=== PATIENT | male | born 1965 | race Caucasian/White ===

== ENCOUNTER → 2020-06-02 08:49 | Outpatient (BNVA) | payer MEDICAID, SELFPAY | PROVIDERS: PCP Internal Medicine; Visit Provider Surgery Vascular Surgery | DX: M79.604 Pain in right leg (principal); M79.605 Pain in left leg | CPT/HCPCS: 99213 ==

== ENCOUNTER 2020-06-03 08:11 | Day surgery (SDC) | payer MEDICAID, SELFPAY ==
[2020-05-27 13:55] VITALS: BMI 38.7
--- NOTE | 2020-06-01 08:13 | P.CONAN_ITS ---
Documented by User: Natividad Acharya 06/02/20 13:19 HPI - Anesthesia Eval Consult details Narrative: 55yo M for EGD and Colonoscopy Chronic type B descending aortic dissection, no contraindication per vascular, Dr. Marino Pending vascular surgical repair, Cardiac cleared at intermediate risk [facility] Past Medical History Medical History Anemia Anxiety Ascending aortic dissection Back pain Constipation Esophagitis Fatty liver GERD (gastroesophageal reflux disease) Hx of lipoma Hypercholesteremia Hypertension Leg edema VALERY (obstructive sleep apnea) Peptic ulcer disease Pulmonary hypertension Sacroiliac joint pain Sacroiliitis SOB (shortness of breath) Thoracic aneurysm without mention of rupture Family History Family History Father Depression Suicide Mother Diabetes Dementia Heart problem Sister Dementia, Onset Age: 73 Sister No problems noted. Brother No problems noted. Family/Other No problems noted. Surgical History Surgical History History of arthroscopy of both knees History of carpal tunnel release of both wrists History of esophagogastroduodenoscopy (EGD) Hx of cholecystectomy Hx of colonoscopy Social History Social History Smoking Status: Former smoker Years Smoked: 30 Smoked in Last 30 Days: No Smoking Quit Date: 2017 Use of substances other than those prescribed or required for medical reasons: No Advance Directives: No Advance Directives Information Provided: Yes Advance Directives on File: No Recently lost weight without trying: No Meds Allergies Allergy/AdvReac Type Severity Reaction Status Date / Time baclofen [BACLOFEN] Allergy Intermediate RASH Verified 06/02/20 09:04 Home Medications Medication Instructions Recorded Confirmed Type amlodipine 10 mg PO DAILY 05/27/20 05/27/20 History atorvastatin 40 mg PO BEDTIME 05/27/20 05/27/20 History carvedilol [Coreg] 25 mg PO BID 05/27/20 05/27/20 History isosorbide dinitrate 20 mg PO QID 05/27/20 05/27/20 History lisinopril 40 mg PO DAILY 05/27/20 05/27/20 History pantoprazole 40 mg PO DAILY 05/27/20 05/27/20 History Exam Exam Date and Time: June 01, 2020 0813 Height,Weight and Vital Signs: Height 5 ft 10 in Weight 122.47 kg Pertinent Lab Results Pertinent Lab Results: EKG 09/19/2019 = NSR @68 (Per [facility] note, new RBBB 03/2020) ECHO 03/2020 = LVEF 60-65%, Mild AR, Mild Pulm Htn, Mod dilatation of asc aorta @ 4.61cm CTA Chest 03/2020 = Type B dissection with measurements grossly unchanged from prev, Asc aorta and aortic arch not involved by dissection and are stable. 03/2020: Lytes/Bun/Creat = WNL, AST 38(H), ALT 44(H) 03/2020: WBC 8.0, HGB 13.1(L), HCT 39.6(L), PLT 215 MIBI 2019 Neg Documented by User: Cortney Carter 06/03/20 08:47 [facility] Past Medical History Medical History Anemia Anxiety Ascending aortic dissection Back pain Constipation Esophagitis Fatty liver GERD (gastroesophageal reflux disease) Hx of lipoma Hypercholesteremia Hypertension Leg edema VALERY (obstructive sleep apnea) Peptic ulcer disease Pulmonary hypertension Sacroiliac joint pain Sacroiliitis SOB (shortness of breath) Thoracic aneurysm without mention of rupture Family History Family History Father Depression Suicide Mother Diabetes Dementia Heart problem Sister Dementia, Onset Age: 73 Sister No problems noted. Brother No problems noted. Family/Other No problems noted. Surgical History Surgical History History of arthroscopy of both knees History of carpal tunnel release of both wrists History of esophagogastroduodenoscopy (EGD) Hx of cholecystectomy Hx of colonoscopy Social History Social History Smoking Status: Former smoker Years Smoked: 30 Smoked in Last 30 Days: No Smoking Quit Date: 2017 Use of substances other than those prescribed or required for medical reasons: No Advance Directives: No Advance Directives Information Provided: Yes Advance Directives on File: No Recently lost weight without trying: No Meds Allergies Allergy/AdvReac Type Severity Reaction Status Date / Time baclofen [BACLOFEN] Allergy Intermediate RASH Verified 06/02/20 09:04 Home Medications Medication Instructions Recorded Confirmed Type amlodipine 10 mg PO DAILY 05/27/20 05/27/20 History atorvastatin 40 mg PO BEDTIME 05/27/20 05/27/20 History carvedilol [Coreg] 25 mg PO BID 05/27/20 05/27/20 History isosorbide dinitrate 20 mg PO QID 05/27/20 05/27/20 History lisinopril 40 mg PO DAILY 05/27/20 05/27/20 History pantoprazole 40 mg PO DAILY 05/27/20 05/27/20 History Exam Airway Mallampati Class: II TM Dist: >3cm Neck ROM: Full Heart: RRR Lungs: CTA BL Assessment and Plan Final Anesthetic Review NPO: Yes ASA Class: III Final Preanesthetic Review: No Changes in Pt Med Stat, Meds & Allergies Reviewed, Consent Obtained/Reviewed and Med/Surg/Anes Hx Reviewed Patient Risk: Intermediate Procedure Risk: Low Anesthetic Plan Anesthetic Plan: MAC: Disposition: Standard PACU
[2020-06-03] VITALS (8 sets, daily range): BP systolic 115–137; BP diastolic 54–81; PULSE 58–74; RESP 16–20; TEMP 36.2–36.5; O2SAT 91–95
[2020-06-03] MEDS: Lactated Ringers 1,000 ML 100 ML IVCONT (09:10)
--- NOTE | 2020-06-03 09:22 | MHC.SHP ---
Pre-Procedural Eval Section B Chief Complaint: constipation Details of Present Illness: hx orf erosive esophagitis, epigastric pain, constipation albeit better now Relevant Family History (Specify if Yes): No Relevant Social History: None Present Medications: see Short Stay Collaborative assessment Medical History: Significant History (esophagitis, aortic dissection, HLP, HTN) Allergies: Allergies Allergy/AdvReac Type Severity Reaction Status Date / Time baclofen [BACLOFEN] Allergy Intermediate RASH Verified 06/02/20 09:04 Review of Systems Sugical H&P ROS: Negative: Constitution, Cardiovascular, Respiratory, Neurological, Psychiatric, Hem-Onc, Allergic/Immunologic, Gastrointestinal, Genitourinary, Musculoskeletal, Integumentary, Endocrine and Eyes/Ears/Nose/Throat Exam Surgical H&P Exam: Normal: HEENT, Normal: Heart, Normal: Lungs, Normal: Extremities, Normal: Abdomen, Normal: Skin and Normal: Neurological Plan Diagnosis/Plan: Unchanged Patient has been examined and remains a candidate for the planned procedure
--- NOTE | 2020-06-03 09:53 | PM.OP ---
Brief Operative Note Date of procedure: 06/03/20 Pre-op diagnosis: hx of erosive esophagitis, epigastric pain, constipation Post-op diagnosis: same Procedure: Operative Information Procedure Description: EGD, Colonoscopy FLEXIBLE TRANSORAL UPPER GASTROINTESTINAL ENDOSCOPY AND COLONOSCOPY PROCEDURE NOTE UPPER ENDOSCOPY Consent: Indications for the procedure and potential complications of bleeding, perforation, reaction to medications and missed diagnosis were discussed with the patient and informed consent was obtained. Instrument: Olympus GIF H 190 J mid size upper endoscope Monitoring: Vital signs and clinical assessment, continuous EKG monitoring, Pulse oximetry, Carbon Dioxide monitoring and blood pressure monitoring were done throughout the procedure. Procedure: The patient was placed in the left lateral decubitis position and pre-procedure medications were administered and a bite block was placed. The endoscope was inserted into the mouth and advanced under direct vision to the third part of duodenum. A careful inspection was made as the upper endoscope was withdrawn including a retroflexed examination of the proximal stomach; Findings and interventions are described below. Findings: Larynx:normal Esophagus: GE junction at 45 cm, diaphragm hiatus at 45 cm, mild esophagitis at GEJ, otherwise normal esophageal mucosa. Stomach: Normal mucosa. Biopsies were obtained. Grade 2 flap valve on retroflexed examination of the cardia. Duodenum: Mild bulbar duodenitis, bx taken Intervention: Biopsies as noted above COLONOSCOPY Instrument: Olympus variable stiffness pediatric scope 190L Colonoscopy Monitoring: Vital signs and clinical assessment, continuous EKG monitoring, Pulse oximetry, Carbon Dioxide monitoring and blood pressure monitoring were done throughout the procedure. Colon withdrawal time was 11 minutes. Procedure: The patient was placed in the left lateral decubitis position and pre-procedure medications were administered. After a digital rectal examination of the ano-rectum, the video colonoscope was inserted into the rectum and advanced through the colon to the cecum/TI. The colonoscope was slowly withdrawn in a retrograde panoramic fashion and the colon mucosa was carefully examined including a retroflexed view of the rectum. Findings and interventions are described below. Procedure Difficulty: Findings: Terminal Ileum-normal Cecum:normal Ascending Colon: normal Transverse Colon -normal Descending Colon:normal Sigmoid Colon: normal Rectum: Retroflexion with moderate sized internal hemorrhoids, grade I Anorectum - normal Colon preparation: [place] Bowel Preparation Scale Right colon; 3 Transverse colon: 2 Left colon; 3 (0 = Unprepared colon segment with mucosa not seen due to solid stool that cannot be cleared. 1 = Portion of mucosa of the colon segment seen, but other areas of the colon segment not well seen due to staining, residual stool and/or opaque liquid. 2 = Minor amount of residual staining, small fragments of stool and/or opaque liquid, but mucosa of colon segment seen well. 3 = Entire mucosa of colon segment seen well with no residual staining, small fragments of stool or opaque liquid) Impression and Post Procedure Diagnosis: Endoscopy Findings: mild esophagitis duodenitis Colonoscopy Findings: internal hemorrhoids Plan: Await Pathology results Repeat Colonoscopy in 10 years or earlier if clinically indicated High fiber diet leaflet avoid straining at stool, epsom salts and sitz bath prn, anusol supps or cream Above findings were reviewed with the patient and relevant handouts were provided if indicated. Surgeon: Beto Lopez MD Anesthesia: MAC Condition: stable Disposition: PACU
--- NOTE | 2020-06-03 12:03 | SUR.PHASEI ---
1200 PT AWAKE ALERT BARTOLOME PO NO ISSUES,ASST OOB TO JAJA LEMOS,TOTAL IV IN +950ML LR.IV DC'D TIP INTACT PRESSURE AND DRESSING TO SITE,DRESSED SELF AT BS CALL LYNCH IN REACH
--- NOTE | 2020-06-03 12:16 | HO.POSTANES ---
Post Anesthesia Evaluation Post Anesthesia Evaluation Vital Signs: Vital Signs Temp Pulse Resp BP Pulse Ox 06/03/20 11:48 73 18 137/78 95 06/03/20 11:33 74 16 123/78 92 06/03/20 11:18 62 16 128/78 92 06/03/20 11:03 58 20 132/78 92 06/03/20 10:48 59 16 130/78 92 06/03/20 10:33 58 18 130/81 91 L 06/03/20 10:18 97.7 F 70 19 115/70 93 06/03/20 08:54 97.1 F 68 16 124/54 L 95 Anesthesia: Monitored Mental Status: Awake Pain Control: Satisfactory Nausea/Vomiting: None Hydration: Adequate Anesthesia-Related Issues: No Anes. Related Issues
== END 2020-06-03 12:22 | disposition home or self-care (01) ==
PROVIDERS: PCP Internal Medicine; Visit Provider Internal Medicine Gastroenterology
PROC: (CPT 45378; principal; 2020-06-03 09:20)
DX: K59.00 Constipation, unspecified (principal); K64.0 First degree hemorrhoids; R10.13 Epigastric pain; K44.9 Diaphragmatic hernia without obstruction or gangrene; K21.00 Gastro-esophageal reflux disease with esophagitis, without bleeding; K29.60 Other gastritis without bleeding; K29.80 Duodenitis without bleeding; K76.0 Fatty (change of) liver, not elsewhere classified; I10 Essential (primary) hypertension; I71.00 Dissection of unspecified site of aorta; G47.33 Obstructive sleep apnea (adult) (pediatric); D64.9 Anemia, unspecified; Z79.899 Other long term (current) drug therapy; Z90.49 Acquired absence of other specified parts of digestive tract; Z87.891 Personal history of nicotine dependence; Z88.8 Allergy status to other drugs, medicaments and biological substances
CPT/HCPCS: 45378; 43239; 88305; 88342

== ENCOUNTER → 2020-07-21 12:42 | Outpatient (BNVA) | payer MEDICAID, SELFPAY | PROVIDERS: PCP Internal Medicine; Referring Provider Internal Medicine; Visit Provider Internal Medicine Cardiovascular Disease | DX: K22.10 Ulcer of esophagus without bleeding (principal); K59.00 Constipation, unspecified; Z86.19 Personal history of other infectious and parasitic diseases; I71.4 Abdominal aortic aneurysm, without rupture; I71.01 Dissection of thoracic aorta | CPT/HCPCS: 93005; 99212 ==

== ENCOUNTER → 2020-09-01 14:44 | Outpatient (BNVA) | payer MEDICAID, SELFPAY | PROVIDERS: PCP Internal Medicine; Visit Provider Internal Medicine Cardiovascular Disease | DX: I71.01 Dissection of thoracic aorta (principal); I71.2 Thoracic aortic aneurysm, without rupture; I10 Essential (primary) hypertension; R07.89 Other chest pain | CPT/HCPCS: 93005; 99212 ==

== ENCOUNTER → 2020-11-05 13:30 | Outpatient (BNVA) | payer MEDICAID, SELFPAY | PROVIDERS: PCP Internal Medicine; Visit Provider Internal Medicine Cardiovascular Disease | DX: I71.2 Thoracic aortic aneurysm, without rupture (principal); I71.01 Dissection of thoracic aorta; I10 Essential (primary) hypertension; Z79.899 Other long term (current) drug therapy; Z87.891 Personal history of nicotine dependence | CPT/HCPCS: 99212 ==

== ENCOUNTER → 2021-01-08 08:18 | Outpatient (BNVA) | payer MEDICAID, SELFPAY | PROVIDERS: PCP Internal Medicine; Visit Provider Internal Medicine Gastroenterology | DX: K59.00 Constipation, unspecified (principal); Z79.891 Long term (current) use of opiate analgesic | CPT/HCPCS: 99212 ==

== ENCOUNTER → 2021-01-28 12:53 | Outpatient (BNVA) | payer MEDICAID, SELFPAY | PROVIDERS: PCP Internal Medicine; Referring Provider Internal Medicine; Visit Provider Nurse Practitioner Family ==

== ENCOUNTER → 2021-02-04 13:42 | Outpatient (REF) | payer MEDICAID, SELFPAY ==
--- NOTE | 2021-02-04 13:45 | CA_ITS ---
Transthoracic Echocardiogram Patient (Last, First, Middle): Silvestre Villalobos A Gender: Male Date of : 1965 Age: 55 Procedure Date: 02/04/2021 Procedure Type: Transthoracic Echocardiogram Location: OP Height: 177.8 cm Weight: 131.54 kg BSA: 2.44 m2 Heart Rate: bpm BP: 160 / 70 mmHg Tear Down Man: RADHA Referring MD: Isabella Dow VEHICLE INSURANCE AGENTRebecca Symptoms: R06.02 - Shortness of breath Conclusions: - 1. Normal LV systolic function with impaired relaxation filling pattern 2. Mildly increased RV size 3. Moderately dilated ascending aorta at 4.7 cm 4. Trivial to mild aortic regurgitation 5. Normal RV systolic pressure 6. No pericardial effusion Findings Left Ventricle Normal left ventricular size, thickness, and systolic function. The visually estimated ejection fraction is between 65-70%. There is no evidence of regional wall motion abnormalities. Spectral Doppler is indicative of an impaired relaxation filling pattern. E/E prime ratio is <8, consistent with normal filling pressures. Evidence suggests grade I (mild) diastolic dysfunction. Right Ventricle Mildly increased right ventricular cavity size. There is low normal right ventricular systolic function. Atria The left atrium is normal in size. Interatrial shunt cannot be excluded. The right atrium is likely dilated. Aortic Valve The aortic valve was not well visualized. There is mild aortic valve stenosis. There is trace (trivial) aortic valve regurgitation. Mitral Valve Likely normal mitral valve structure and function. There is trace mitral valve regurgitation. There is no mitral valve stenosis. Pulmonic Valve The pulmonic valve was not well visualized. Tricuspid Valve Likely normal tricuspid valve structure and function. There is trace tricuspid valve regurgitation. The right ventricular systolic pressure is normal. The right ventricular systolic pressure is 26 mmHg. Normal right atrial pressure. There is no evidence of pulmonary hypertension. Great Vessels The pulmonary artery was not well visualized. There is moderate dilatation of the ascending aorta measuring 4.70 cm. Venous The inferior vena cava is normal in size and collapses greater than 50% with inspiration. Pericardium/Pleural There is no evidence of pericardial effusion. Prior Study Comparison Changes noted compared to prior study dated: 04/01/2020. RV systolic pressure is within normal limits on this study Measurements 2D Linear Measurements IVSd: 1.04 0.6-0.9/0.6-1.0 cm LVIDd: 5.43 3.9-5.3/4.2-5.9 cm LVIDd Index: 2.23 2.4-3.2/2.2-3.1 cm/m2 LVIDs: 4.15 2.0-3.6 cm LVPWd: 1.00 0.7-1.1 cm Ao Root: 3.10 2.1-3.5 cm LA Diam: 3.70 2.7-3.8/3.0-4.0 cm LAIDs Index: 1.52 1.5-2.3 cm/m2 LV Mass: 311.81 67-162/88-224 g LV Mass Index: 127.79 43-95/49-115 g/m2 LVOT Diam: 2.20 3.0+(-)1.3 cm 2D Systolic Function EF 4C: 71.60 >55% EF 2C: 72.40 >55% EF BiP: 72.40 >55% Mitral Valve MV Pk E: 0.82 MV PK A: 1.03 MV Decel Time: 204.00 E/A: 0.80 E'Lateral: 8.70 E'Medial: 8.27 E/E' Med: 9.90 E/E' Lat: 9.40 PHT: 60.00 MVA PHT: 3.67 Decel [place]: 4.01 Aortic Valve AoV Pk Nicko: 1.70 AoV Pk Grad: 12.00 LVOT LVOT Pk Nicko: 1.11 LVOT Mn Nicko: 0.75 LVOT VTI: 0.23 LVOT Pk Grad: 5.00 LVOT Mn Grad: 3.00 LVOT Diam: 2.20 LVOT Area: 3.80 Diastolic Function MV Pk E: 0.82 MV Pk A: 1.03 E/A: 0.80 E'Medial: 8.27 E/E' Med: 9.90 E' Laterial: 8.70 E/E' Lat: 9.40 Tricuspid Valve TR Pk Nicko: 2.42 TR Pk Grad: 23.00 RA Press: 3.00 RVSP: 26.00 Great Vessels Aorta Ao Root-2D: 3.10 2.0-3.7 cm Ao Asc: 4.70 2.1-3.4 cm Updated in Other Vendor System with Status of Final Tyree Weber MD electronically signed on 02/05/2021 4:57:29 PM with status of Final
== END ==
LOC: HO.CARD 13:42
PROVIDERS: Visit Provider Nurse Practitioner Family
DX: R06.02 Shortness of breath (principal); R07.89 Other chest pain; I71.2 Thoracic aortic aneurysm, without rupture; I71.01 Dissection of thoracic aorta; I10 Essential (primary) hypertension; E78.5 Hyperlipidemia, unspecified; Z79.899 Other long term (current) drug therapy
CPT/HCPCS: 93005; 93306; 99212; Q9957

== ENCOUNTER → 2021-02-15 08:55 | Outpatient (REF) | payer MEDICAID, SELFPAY ==
--- NOTE | ~2021-02-15 | NM_ITS ---
Myocardial perfusion study Indication: Shortness of breath and chest discomfort to evaluate for myocardial ischemia Technique: The patient was brought in for a Lexiscan perfusion study on 02/15/2021. Patient performed low-level exercise and was injected 0.4 mg of Lexiscan intravenously. Within a minute of injection, 45 mCi of sestamibi was given intravenously. Images were obtained using the SPECT gamma camera interlaced with the gating device. Images were obtained in supine position. Resting perfusion study was performed on 02/16/2021. Patient was administered 45 mCi of sestamibi intravenously at rest. Images were then obtained in supine position. Images obtained with and without CT attenuation. Total DLP 143 mGy-cm. Images were processed with the software and compared side to side in short axis, horizontal long axis and vertical long axis views. Findings: The stress perfusion study showed nonattenuated images show normal uptake of radiotracer in all segments of LV myocardium. Attenuation corrected images show mildly reduced uptake in the apex of the LV myocardium. The gated study shows normal LV systolic function with calculated LVEF of 65%. LV cavity is normal in size. The gated study shows normal systolic wall thickening and contraction of segments. Resting study shows nonattenuated images show normal uptake of radiotracer in all segments of LV myocardium. Gating at rest reveals normal systolic wall motion with visually estimated ejection fraction at greater than 60%. The findings are consistent with normal myocardial perfusion. NM/NM gary perf SPECT rest & str Impression: 1. Myocardial perfusion imaging study shows normal myocardial perfusion 2. Gated LVEF is 65% 3. Transient ischemic dilatation not present EKG is nondiagnostic for ischemia
--- NOTE | 2021-02-15 08:59 | CA_ITS ---
Acquisition Time: 2021-02-15 08:58:35 Total Exercise Time: 00:02:00 Test Indications: CP, SOB Medications: SEE CHART Protocol: LEXISCAN Max HR: 096 BPM 58% of Pred: 165 BPM Max BP: 124/074 mmHG Max Work Load: 1.0 METS Pharmacological stress test with Lexiscan injection, while sitting and kicking his legs, without anginal symptoms, without arrythmia, with normotensive response to injection, with nondiagnostic EKG for ischemia. Nuclear images pending. Test reviewed with Dr Ma. Referred By: Isabella Dow Overread By: ISABELLA DOW
== END ==
LOC: HO.CARD 08:55
PROVIDERS: Visit Provider Nurse Practitioner Family
DX: R07.89 Other chest pain (principal); R06.02 Shortness of breath; I71.2 Thoracic aortic aneurysm, without rupture
CPT/HCPCS: 78452; 93017; A9500; J0280; J2785

== ENCOUNTER → 2021-02-25 13:56 | Outpatient (BNVA) | payer MEDICAID, SELFPAY | PROVIDERS: PCP Internal Medicine; Referring Provider Internal Medicine; Visit Provider Internal Medicine Cardiovascular Disease | DX: R06.02 Shortness of breath (principal); I71.2 Thoracic aortic aneurysm, without rupture; I71.01 Dissection of thoracic aorta | CPT/HCPCS: 99212 ==

== ENCOUNTER → 2021-04-15 10:23 | Outpatient (BNVA) | payer MEDICAID, SELFPAY | PROVIDERS: PCP Internal Medicine; Visit Provider Anesthesiology | DX: M46.1 Sacroiliitis, not elsewhere classified (principal); M53.3 Sacrococcygeal disorders, not elsewhere classified; I73.9 Peripheral vascular disease, unspecified; E66.01 Morbid (severe) obesity due to excess calories; Z68.41 Body mass index [BMI] 40.0-44.9, adult | CPT/HCPCS: 99212 ==

== ENCOUNTER 2021-05-22 06:00 | Emergency (ER) | payer MEDICAID, SELFPAY ==
--- NOTE | 2021-05-22 | ECG_ITS ---
Test Reason : CHEST PAIN Blood Pressure : / mmHG Vent. Rate : 062 BPM Atrial Rate : 062 BPM P-R Int : 200 ms QRS Dur : 088 ms QT Int : 426 ms P-R-T Axes : 023 007 018 degrees QTc Int : 432 ms Normal sinus rhythm Normal ECG When compared with ECG of 16-APR-2020 12:35, No significant change was found Referred By: Generic ED Physician Electronically Signed By:DAYRON RIVERO
--- NOTE | ~2021-05-22 | XR_ITS ---
EXAMINATION: XR CHEST CLINICAL INFORMATION: Chest pain COMPARISON: 04/16/2020 TECHNIQUE: Frontal view of the chest was obtained. FINDINGS: Lung volumes are symmetric. No focal consolidation is seen. No evidence of pneumothorax, pleural effusion, or pulmonary edema. Cardiac size is within normal limits. Thoracic aortic stent graft is noted. No acute osseous findings are seen. XR/XR chest 1V IMPRESSION: No acute cardiopulmonary findings.
[2021-05-22 06:16] VITALS: BP 140/79; PULSE 64; RESP 20; TEMP 36.1; O2SAT 97; BMI 39.4
[2021-05-22 06:41] VITALS: BP 140/73; PULSE 65; RESP 16; O2SAT 97
[2021-05-22 06:43] LABS: MANUAL DIFF FLAG NO
[2021-05-22 06:46] LABS: Basophils Absolute Auto 0.1 X10*3/uL (0.0-0.2); Basophils Percent Auto 0.5 % (0-2); Eosinophils Absolute Auto 0.3 X10*3/uL (0.0-0.4); Eosinophils Percent Auto 2.7 % (0-4); Hematocrit 38.4 % (42-52); Hemoglobin 12.9 g/dl (14.0-18.0); Imm Gran Abs Auto 0.03 X10*3/uL (0.00-0.03); Imm Gran Pct Auto 0.3 % (0.0-0.4); Lymphocytes Absolute Auto 3.3 X10*3/uL (1.2-4.9); Lymphocytes Percent Auto 33.2 % (20-40); Mean Corpuscular HGB Conc 33.6 g/dl (31.0-36.0); Mean Corpuscular Hemoglobin 27.8 pg (27.0-33.0); Mean Corpuscular Volume 82.8 fL (80-98); Mean Platelet Volume 8.4 fL (9.4-12.4); Monocytes Absolute Auto 0.8 X10*3/uL (0.1-1.2); Monocytes Percent Auto 7.7 % (2-11); Neutrophils Absolute Auto 5.6 X10*3/uL (2.0-8.3); Neutrophils Percent Auto 55.6 % (45-73); Platelet Count 228 X10*3/uL (160-400); Red Blood Count 4.64 X10*6/uL (4.60-5.80); Red Cell Distribution Width 14.4 % (11.0-16.0)
[2021-05-22 06:58] LABS: Anion Gap 12 (12-20); Blood Urea Nitrogen 14 mg/dL (9-16); Calcium 9.4 mg/dL (8.4-10.2); Carbon Dioxide 23 mmol/L (22-29); Chloride 108 mmol/L (96-108); Creatinine Clr Calc Pharmacy 131.7; Estimated Glomerular Filt Rate > 60; Glucose Random 113 mg/dL (60-115); Potassium 3.8 mmol/L (3.3-5.1); Sodium 139 mmol/L (135-145)
--- NOTE | 2021-05-22 08:09 | ED.CHESTPAIN ---
HPI - Chest Pain General Chief Complaint: Chest Pain Stated Complaint: Chest pain Time Seen by Provider: 05/22/21 08:09 History of Present Illness HPI narrative: Patient 56-year-old male presents today with having pain to his chest that wraps around his whole body. Patient has a history of aneurysm. Just spent 4 days at [facility]. Was told that he needs outpatient surgery for his abdominal aortic aneurysm/dissection. Patient was discharged from [facility] now has pain persistent to his chest. Once additional pain medication. There is no fever no chills. There is no abdominal pain. There is no dizziness. There is no diaphoresis today. There is no nausea vomiting. There is no leg weakness. There is no abdominal pain. Patient claims this pain is exactly the same as when he was discharged from [facility]. Patient claims that the Tylenol so it working and he wants additional medication. Related Data Home Medications Medication Instructions Recorded Confirmed amlodipine 10 mg tablet 10 mg PO DAILY 05/27/20 02/25/21 atorvastatin 40 mg tablet 40 mg PO BEDTIME 05/27/20 02/25/21 carvedilol 25 mg tablet (Coreg) 25 mg PO BID 05/27/20 02/25/21 lisinopril 40 mg tablet 40 mg PO DAILY 05/27/20 02/25/21 pantoprazole 40 mg tablet,delayed 40 mg PO DAILY 05/27/20 02/25/21 release albuterol sulfate 4 mg tablet 4 mg PO TID 01/08/21 02/25/21 oxycodone 5 mg capsule 5 mg PO Q8H PRN cap 01/08/21 02/25/21 Previous Rx's Medication Instructions Recorded metronidazole 500 mg tablet 500 mg PO BID 7 Days #14 tab 07/07/20 naloxegol 12.5 mg tablet (Movantik) 12.5 mg PO QAM #30 tab 01/08/21 cyclobenzaprine 10 mg tablet 10 mg PO TID PRN #14 tab 05/22/21 Allergies Allergy/AdvReac Type Severity Reaction Status Date / Time baclofen [BACLOFEN] Allergy Intermediate RASH Verified 04/15/21 10:47 Review of Systems Review of Systems: No fever no chills no cough no congestion or upper respiratory symptoms. No diaphoresis. Yes all other systems are reviewed and are negative PMFSH Past Medical History Attestation statement: The following information was validated with the patient. Medical History Anemia Anxiety Ascending aortic aneurysm Back pain Constipation Descending thoracic aortic dissection Esophagitis Fatty liver GERD (gastroesophageal reflux disease) HTN (hypertension) Hx of lipoma Hypercholesteremia Leg edema Morbid obesity VALERY (obstructive sleep apnea) Peptic ulcer disease Peripheral vascular disease Pulmonary hypertension Sacroiliac joint dysfunction of right side Sacroiliac joint pain Sacroiliitis Sacroiliitis SOB (shortness of breath) Thoracic aneurysm without mention of rupture Surgical History History of arthroscopy of both knees History of carpal tunnel release of both wrists History of esophagogastroduodenoscopy (EGD) Hx of cholecystectomy Hx of colonoscopy Family History Family History Father Depression Suicide Mother Diabetes Dementia Heart problem Sister Dementia, Onset Age: 73 Sister No problems noted. Brother No problems noted. Family/Other No problems noted. Social History Social History Alcohol intake: current Alcohol intake frequency: does not drink Years Smoked: 30 Advance Directives: No Physical Exam Vital Signs: Vital Signs: Last Vital Signs Temp 96.9 F 05/22/21 06:16 Pulse 65 05/22/21 06:41 Resp 16 05/22/21 06:41 BP 140/73 H 05/22/21 06:41 Pulse Ox 97 05/22/21 06:41 Body Mass Index 39.4 Appearance: Alert. Oriented X3. No acute distress. Eyes: Pupils equal, round and reactive to light. ENT: Pharynx normal. Neck: Normal inspection. Neck supple. No lymph nodes noted. No crepitus CVS: Normal heart rate and rhythm. Pulses normal. Normal S1 and S2 Respiratory: No respiratory distress. Breath sounds normal. No Wheezing. No rales Abdomen: Soft and nontender. No rigidity. No distention. good BS x4 Skin: Skin warm and dry. Normal skin color. Normal skin turgor. Extremities: No lower extremity edema. Neurovascular intact to all extremities. No Lacerations. No Rash Neuro: Oriented X 3. No motor deficit. No sensory deficit. Moving all extermities. No slurred speech MDM - Chest Pain MDM Narrative Medical decision making narrative: Explain to patient the need for evaluation of his aneurysm if he has additional chest pain. Patient states he does not want to stay. He wants pain medication and then leave. Understood risk of aneurysm rupturing. Understood risk of dissection. Including . Permanent disability. Loss of current lifestyle. Patient is leaving against medical advice. Patient will follow-up closely with his thoracic surgeon at [facility]. He states understanding if he changes his mind and come back at any time and get further imaging. Lab Data Result diagrams: 05/22/21 06:36 05/22/21 06:36 Labs: Lab Results 05/22/21 05/22/21 05/22/21 Range/Units 06:36 06:36 06:36 WBC 10.0 (4.8-10.8) X10*3/uL RBC 4.64 (4.60-5.80) X10*6/uL Hgb 12.9 L (14.0-18.0) g/dl Hct 38.4 L (42-52) % MCV 82.8 (80-98) fL MCH 27.8 (27.0-33.0) pg MCHC 33.6 (31.0-36.0) g/dl RDW 14.4 (11.0-16.0) % Plt Count 228 (160-400) X10*3/uL MPV 8.4 L (9.4-12.4) fL Immature Gran % (Auto) 0.3 (0.0-0.4) % Neut % (Auto) 55.6 (45-73) % Lymph % (Auto) 33.2 (20-40) % [place] % (Auto) 7.7 (2-11) % Eos % (Auto) 2.7 (0-4) % Baso % (Auto) 0.5 (0-2) % Lymph # (Auto) 3.3 (1.2-4.9) X10*3/uL [place] # (Auto) 0.8 (0.1-1.2) X10*3/uL Eos # (Auto) 0.3 (0.0-0.4) X10*3/uL Baso # (Auto) 0.1 (0.0-0.2) X10*3/uL Abs Immat Gran (auto) 0.03 (0.00-0.03) X10*3/uL Absolute Neuts (auto) 5.6 (2.0-8.3) X10*3/uL Absolute Nucleated RBC 0.000 (0.0-0.012) X10*3/uL Nucleated RBC % (auto) 0.0 (0.0-0.2) /100WBC Sodium 139 (135-145) mmol/L Potassium 3.8 (3.3-5.1) mmol/L Chloride 108 (96-108) mmol/L Carbon Dioxide 23 (22-29) mmol/L Anion Gap 12 (12-20) BUN 14 (9-16) mg/dL Creatinine 0.83 (0.5-1.4) mg/dL Estim Creat Clear Calc 131.7 Estimated GFR > 60 Random Glucose 113 (60-115) mg/dL Calcium 9.4 (8.4-10.2) mg/dL Troponin I High Sens 7.0 (<3.5-35.0) ng/L Discharge Plan Discharge Clinical Impression: Ascending aortic aneurysm, Descending thoracic aortic dissection, Left against medical advice Patient Disposition: Left Against Medical Advice Instructions: Thoracic Aortic Aneurysm (ED) Additional Instructions: Risk of dissection leaking exists. You are leaving against Medical advice. Please follow-up very closely. Please come back to [facility] or [facility] for additional help. Prescriptions: New cyclobenzaprine 10 mg tablet 10 mg PO TID PRN (Reason: pain) Qty: 14 RF: 0 No Action metronidazole 500 mg tablet 500 mg PO BID 7 Days Qty: 14 RF: 0 atorvastatin 40 mg Tablet 40 mg PO BEDTIME RF: 0 carvedilol [Coreg] 25 mg Tablet 25 mg PO BID RF: 0 amlodipine 10 mg Tablet 10 mg PO DAILY RF: 0 pantoprazole 40 mg Tablet,Delayed Release (Dr/Ec) 40 mg PO DAILY RF: 0 lisinopril 40 mg Tablet 40 mg PO DAILY RF: 0 oxycodone 5 mg capsule 5 mg PO Q8H PRNRF: 0 albuterol sulfate 4 mg tablet 4 mg PO TID RF: 0 Movantik 12.5 mg tablet 12.5 mg PO QAM Qty: 30 RF: 1 Referrals: Aaliyah Roche MD [Primary Care Provider] - 1 day
--- NOTE | 2021-05-22 09:20 | PC.NURSE ---
PRIOR TO DISCH VS P-63 RR 16 BP132/71 O2 SAT 98
== END 2021-05-22 08:42 | disposition left against medical advice (07) ==
PROVIDERS: Emergency Provider Emergency Medicine Emergency Medical Services; PCP Internal Medicine
DX: I71.2 Thoracic aortic aneurysm, without rupture (principal); R07.9 Chest pain, unspecified; Z79.899 Other long term (current) drug therapy; Z87.891 Personal history of nicotine dependence
CPT/HCPCS: 36415; 71045; 80048; 84484; 85025; 93005; 99283; 99284

== ENCOUNTER 2021-06-01 06:33 | Outpatient (REF) | payer MEDICAID, SELFPAY ==
--- NOTE | ~2021-06-01 | FL_ITS ---
EXAMINATION: XR FLUOROSCOPY WITH IMAGES CLINICAL INFORMATION: Sacroiliitis COMPARISON: 05/26/2020 TECHNIQUE: Fluoroscopy performed by Deya Kearney NP. Fluoroscopy time: 0.1 minutes DAP: 2.31 Gycm2 Images: 3 FINDINGS: Images demonstrate needles and associated contrast in the region of the right L4 nerve root right L5 nerve root and about the right sacroiliac joint FL/FL guidance in treatment room IMPRESSION: Intraoperative fluoroscopy provided for right transforaminal injections at L4-5 and L5-S1 as well as the right sacroiliac joint. Please see operative report.
== END 2021-06-01 06:34 | disposition home or self-care (01) ==
LOC: HO.RADIR 06:33
PROVIDERS: Visit Provider Anesthesiology
DX: M46.1 Sacroiliitis, not elsewhere classified (principal); M53.3 Sacrococcygeal disorders, not elsewhere classified; E66.01 Morbid (severe) obesity due to excess calories; I73.9 Peripheral vascular disease, unspecified
CPT/HCPCS: 27096; Q9967

== ENCOUNTER → 2021-07-13 09:18 | Outpatient (BNVA) | payer MEDICAID, SELFPAY | PROVIDERS: PCP Internal Medicine; Visit Provider Internal Medicine Gastroenterology ==

== ENCOUNTER → 2021-08-31 13:40 | Outpatient (BNVA) | payer MEDICAID, SELFPAY | PROVIDERS: PCP Internal Medicine; Referring Provider Internal Medicine; Visit Provider Internal Medicine Cardiovascular Disease | DX: I71.2 Thoracic aortic aneurysm, without rupture (principal); I10 Essential (primary) hypertension; R07.89 Other chest pain | CPT/HCPCS: 93005; 99212 ==

== ENCOUNTER 2021-09-07 15:00 | Outpatient (RCR) | payer MEDICAID, SELFPAY | END 2021-10-07 15:49 | disposition home or self-care (01) | LOC: HO.PT 15:00 | PROVIDERS: PCP Internal Medicine; Visit Provider Internal Medicine | DX: M54.41 Lumbago with sciatica, right side (principal) | CPT/HCPCS: 97110; 97112; 97162 ==

== ENCOUNTER 2021-11-10 17:02 | Emergency (ER) | payer MEDICAID, SELFPAY ==
--- NOTE | ~2021-11-10 | CT_ITS ---
EXAMINATION: CT ABDOMEN AND PELVIS WITHOUT CONTRAST CLINICAL INFORMATION: Right upper quadrant/flank pain. COMPARISON: CTA dated 04/16/2020 TECHNIQUE: Multidetector volumetric imaging was performed from the superior aspect of the liver through the pubic symphysis. Sagittal and coronal reformatted images were obtained on the technologist's workstation. This CT examination was performed using dose optimization techniques as appropriate, variously including the following: *Automated exposure control *Adjustment of mA and/or kV according to patient size (this includes techniques or standardized protocols for targeted exams where dose is matched to indication/reason for exam; i.e. extremities or head) *Use of iterative reconstruction technique DLP: 1006 mGy-cm FINDINGS: LUNG BASES: The visualized lung bases are unremarkable. LIVER, GALLBLADDER, AND BILIARY TREE: The liver is normal in size, shape, and attenuation. No focal hepatic lesion or biliary ductal dilatation is present. Gallbladder is surgically absent. PANCREAS: Unremarkable. SPLEEN: Unremarkable. ADRENAL GLANDS: Unremarkable. KIDNEYS AND URETERS: The kidneys are normal in size, shape, and attenuation. No hydronephrosis, hydroureter, or calculi seen. No perinephric stranding. BLADDER: Unremarkable. GASTROINTESTINAL TRACT: Stomach, small bowel, and colon are normal in caliber. No bowel wall thickening or surrounding inflammatory changes. Appendix is normal. No intraperitoneal free fluid or free air. ABDOMINAL WALL: Small fat-containing umbilical and periumbilical hernias. No bowel involvement. LYMPH NODES: Normal. VASCULAR: There is a long endovascular stent extending from the thoracic aorta through the abdominal aorta into the iliac arteries for treatment of the previously seen dissection. The stent lumen remains smaller than the overall cross-section of the abdominal aorta for the majority of its extent. The proximal abdominal aorta measures up to 4.2 cm in diameter 04/16/2020 (3.3 cm). The descending thoracic aorta measures up to 4.8 cm in diameter including the sac around the stent, similar to prior. PELVIC VISCERA: The prostate and seminal vesicles are unremarkable. OSSEOUS STRUCTURES: Mild degenerative disc disease in the lumbar spine. No acute osseous findings. CT/CT abdomen pelvis wo con IMPRESSION: 1. No acute intra-abdominal or pelvic abnormalities. No nephrolithiasis or evidence of obstructive uropathy. 2. Status post aortobiiliac endovascular stent placement to treat the previously seen dissection. Of note, the aneurysmal suprarenal abdominal aorta (4.2 cm) has increased in diameter as compared to the prior study (3.3 cm) dating back to the time of the dissection but before the endovascular stent placement. Recommend follow-up with vascular surgery.
[2021-11-10 18:03] VITALS: BP 174/82; PULSE 63; RESP 18; TEMP 36.9; O2SAT 96; BMI 37.3
--- NOTE | 2021-11-10 18:06 | ECG_ITS ---
Test Reason : CHEST PAIN Blood Pressure : / mmHG Vent. Rate : 064 BPM Atrial Rate : 064 BPM P-R Int : 204 ms QRS Dur : 086 ms QT Int : 418 ms P-R-T Axes : 031 008 018 degrees QTc Int : 431 ms Normal sinus rhythm Nonspecific ST and T wave abnormality When compared with ECG of 22-MAY-2021 06:11, No significant change was found Referred By: Generic ED Physician Electronically Signed By:DEBO ELIAS
[2021-11-10 19:37] VITALS: BP 132/78; PULSE 64; RESP 16; TEMP 36.6; O2SAT 97
--- NOTE | 2021-11-10 19:40 | ECG_ITS ---
Test Reason : CHEST PAIN Blood Pressure : / mmHG Vent. Rate : 065 BPM Atrial Rate : 065 BPM P-R Int : 206 ms QRS Dur : 086 ms QT Int : 418 ms P-R-T Axes : 032 003 013 degrees QTc Int : 434 ms Normal sinus rhythm Nonspecific ST and T wave abnormality When compared with ECG of 10-NOV-2021 18:15, No significant change was found Referred By: Deya Severino Electronically Signed By:DEBO ELIAS
--- NOTE | 2021-11-10 19:41 | ED.CHESTPAIN ---
HPI - Chest Pain General Chief Complaint: Chest Pain Stated Complaint: diff swallowing Time Seen by Provider: 11/10/21 19:22 Source: patient Mode of arrival: ambulatory Limitations: no limitations History of Present Illness HPI narrative: Patient comes to the complaining right flank pain and right upper quadrant pain. Patient states has been going on for several days. The pain radiates towards the back, unrelated to meal intake. Patient states he already had a cholecystectomy. Also, patient complaining of food and water getting stuck. Patient has been evaluated by Gastroenterology for dysphagia since June of [address] Lopez Related Data Home Medications Medication Instructions Recorded Confirmed amlodipine 10 mg tablet 10 mg PO DAILY 05/27/20 08/31/21 atorvastatin 40 mg tablet 40 mg PO BEDTIME 05/27/20 08/31/21 carvedilol 25 mg tablet (Coreg) 25 mg PO BID 05/27/20 08/31/21 lisinopril 40 mg tablet 40 mg PO DAILY 05/27/20 08/31/21 aspirin 81 mg tablet,delayed 81 mg PO DAILY 08/31/21 08/31/21 release (Adult Aspirin Regimen) budesonide-formoterol HFA 80 INHALATION 08/31/21 08/31/21 mcg-4.5 mcg/actuation aerosol inhaler (Symbicort) trazodone 50 mg tablet 50 mg PO BEDTIME 08/31/21 08/31/21 Previous Rx's Medication Instructions Recorded cyclobenzaprine 10 mg tablet 10 mg PO TID PRN #14 tab 05/22/21 naloxegol 12.5 mg tablet (Movantik) 12.5 mg PO QAM #30 tab 07/13/21 pantoprazole 40 mg tablet,delayed 40 mg PO BID #90 tab 07/13/21 release cyclobenzaprine 5 mg tablet 5 mg PO TID PRN #7 tab 11/10/21 Allergies Allergy/AdvReac Type Severity Reaction Status Date / Time baclofen [BACLOFEN] Allergy Intermediate RASH Verified 08/31/21 13:43 Review of Systems Review of Systems: Constitutional : No Weight loss, No Fever, No Chills, No Night Sweats, No Fatigue, No Malaise ENT/Mouth : No Hearing loss, No Ear Pain, No Nasal Congestion, No Sinus Pain, No Hoarseness, No sore throat, No Rhinorrhea, No Swallowing Difficulty Eyes: No Eye Pain, No Swelling, No Redness, No Foreign Body, No Discharge, No Vision Changes Cardiovascular : No Chest Pain, No SOB, No Dyspnea on Exertion, No Orthopnea, No Edema, No Palpitations Respiratory : No Cough, No Sputum, No Wheezing, No Smoke Exposure, No Dyspnea Gastrointestinal : No Nausea, No Vomiting, No Diarrhea, No Constipation, No abdominal Pain, No Hematochezia, No Melena Genitourinary : no irregular bleeding, No Dysuria, No Urinary Frequency, No Hematuria, No Urinary Incontinence, No Urgency, No Flank Pain, No Urinary Flow Changes, No Hesitancy Musculoskeletal : No joint pain, No Myalgias, No Joint Swelling Skin : No Skin Lesions, No rash Neuro : No Weakness, No Numbness, No Paresthesias, No Loss of Consciousness, No Dizziness, No Headache Psych : No Anxiety/Panic, No Depression, No SI/HI/AH/VH, No Social Issues, Heme/Lymph: No Bruising, No Bleeding,No Lymphadenopathy Endocrine : No Polyuria, No Polydipsia, No Temperature Intolerance PMFSH Past Medical History Medical History Anemia Anxiety Ascending aortic aneurysm Back pain Constipation Descending thoracic aortic dissection Esophagitis Fatty liver GERD (gastroesophageal reflux disease) HTN (hypertension) Hx of lipoma Hypercholesteremia Leg edema Morbid obesity VALERY (obstructive sleep apnea) Peptic ulcer disease Peripheral vascular disease Pulmonary hypertension Sacroiliac joint dysfunction of right side Sacroiliac joint pain Sacroiliitis Sacroiliitis SOB (shortness of breath) Thoracic aneurysm without mention of rupture Surgical History History of arthroscopy of both knees History of carpal tunnel release of both wrists History of esophagogastroduodenoscopy (EGD) Hx of cholecystectomy Hx of colonoscopy Family History Family History Father Depression Suicide Mother Diabetes Dementia Heart problem Sister Dementia, Onset Age: 73 Sister No problems noted. Brother No problems noted. Family/Other No problems noted. Social History Social History Alcohol intake: former Patient Tobacco Use Status: Former Tobacco user Quit Date: 2020 Years Smoked: 30 +/- Advance Directives: No Physical Exam Vital Signs: Vital Signs: Last Vital Signs Temp 97.9 F 11/10/21 19:37 Pulse 64 11/10/21 19:37 Resp 18 11/10/21 19:57 BP 132/78 11/10/21 19:37 Pulse Ox 97 11/10/21 19:37 BMI result Body Mass Index 37.3 Course Course Course Narrative: I discussed the labs and imaging with the patient, no findings that could explain abdominal pain. Patient's pain likely musculoskeletal. Also, I discussed with the patient about the increased size of the infrarenal aneurysm. Patient will follow-up with his surgeon at [facility] in the meantime, patient will be given the phone number of Dr. Brumfield's office. MDM - Chest Pain Lab Data Result diagrams: 11/10/21 19:58 11/10/21 19:58 Labs: Lab Results 11/10/21 11/10/21 Range/Units 19:58 19:58 WBC 9.1 (4.8-10.8) X10*3/uL RBC 4.79 (4.60-5.80) X10*6/uL Hgb 13.5 L (14.0-18.0) g/dl Hct 41.6 L (42.0-52.0) % MCV 86.8 (80.0-98.0) fL MCH 28.2 (27.0-33.0) pg MCHC 32.5 (31.0-36.0) g/dl RDW 13.7 (11.0-16.0) % Plt Count 227 (160-400) X10*3/uL MPV 8.4 L (9.4-12.4) fL Immature Gran % (Auto) 0.4 (0.0-0.4) % Neut % (Auto) 56.7 (45-73) % Lymph % (Auto) 32.3 (20-40) % [place] % (Auto) 6.9 (2-11) % Eos % (Auto) 3.4 (0-4) % Baso % (Auto) 0.3 (0-2) % Lymph # (Auto) 2.9 (1.2-4.9) X10*3/uL [place] # (Auto) 0.6 (0.1-1.2) X10*3/uL Eos # (Auto) 0.3 (0.0-0.4) X10*3/uL Baso # (Auto) 0.0 (0.0-0.2) X10*3/uL Abs Immat Gran (auto) 0.04 H (0.00-0.03) X10*3/uL Absolute Neuts (auto) 5.1 (2.0-8.3) x10*3/uL Absolute Nucleated RBC 0.000 (0.0-0.012) X10*3/uL Nucleated RBC % (auto) 0.0 (0.0-0.2) /100WBC Sodium 138 (135-145) mmol/L Potassium 4.3 (3.3-5.1) mmol/L Chloride 103 (96-108) mmol/L Carbon Dioxide 25 (22-29) mmol/L Anion Gap 14 (12-20) BUN 11 (9-16) mg/dL Creatinine 0.77 (0.5-1.4) mg/dL Estim Creat Clear Calc 137.8 Estimated GFR > 60 Random Glucose 92 (60-115) mg/dL Calcium 9.1 (8.4-10.2) mg/dL Total Bilirubin 0.2 (0.0-1.0) mg/dL Direct Bilirubin < 0.2 (0.0-0.5) mg/dL AST 17 (5-37) U/L ALT 29 (0-40) U/L Alkaline Phosphatase 95 (39-117) U/L Total Protein 7.2 (6.5-8.0) g/dL Albumin 4.2 (3.5-5.0) g/dL Acetaminophen 2 (<30) mcg/mL Discharge Plan Discharge Clinical Impression: Right flank pain Patient Disposition: Home, Self-Care Instructions: Flank Pain (ED) Additional Instructions: Please follow-up with your primary care physician tomorrow. If you have any worsening or new symptoms, please return to the emergency room or call 911 Prescriptions: New cyclobenzaprine 5 mg tablet 5 mg PO TID PRN (Reason: muscle spasm) Qty: 7 0RF No Action atorvastatin 40 mg Tablet 40 mg PO BEDTIME 0RF carvedilol [Coreg] 25 mg Tablet 25 mg PO BID 0RF amlodipine 10 mg Tablet 10 mg PO DAILY 0RF lisinopril 40 mg Tablet 40 mg PO DAILY 0RF cyclobenzaprine 10 mg tablet 10 mg PO TID PRN (Reason: pain) Qty: 14 0RF Movantik 12.5 mg tablet 12.5 mg PO QAM Qty: 30 1RF Rx Instructions: must be taken on empty stomach; no food 1 hr after or 2-3 hrs before dose pantoprazole 40 mg tablet,delayed release (DR/EC) 40 mg PO BID Qty: 90 3RF budesonide-formoterol [Symbicort] 80-4.5 mcg/actuation HFA aerosol inhaler inhalation 0RF trazodone 50 mg tablet 50 mg PO BEDTIME 0RF aspirin [Adult Aspirin Regimen] 81 mg tablet,delayed release (DR/EC) 81 mg PO DAILY 0RF Referrals: Juice Brumfield MD [Physician] - 2 days
[2021-11-10 19:57] VITALS: RESP 18
[2021-11-10] MEDS: Morphine Sulfate 2 MG/ML CARTRIDGE IVPUSH (19:57)
[2021-11-10 20:04] LABS: MANUAL DIFF FLAG NO
[2021-11-10 20:05] LABS: Basophils Percent Auto 0.3 % (0-2); Eosinophils Absolute Auto 0.3 X10*3/uL (0.0-0.4); Eosinophils Percent Auto 3.4 % (0-4); Hematocrit 41.6 % (42.0-52.0); Hemoglobin 13.5 g/dl (14.0-18.0); Imm Gran Abs Auto 0.04 X10*3/uL (0.00-0.03); Imm Gran Pct Auto 0.4 % (0.0-0.4); Lymphocytes Absolute Auto 2.9 X10*3/uL (1.2-4.9); Lymphocytes Percent Auto 32.3 % (20-40); Mean Corpuscular HGB Conc 32.5 g/dl (31.0-36.0); Mean Corpuscular Hemoglobin 28.2 pg (27.0-33.0); Mean Corpuscular Volume 86.8 fL (80.0-98.0); Mean Platelet Volume 8.4 fL (9.4-12.4); Monocytes Absolute Auto 0.6 X10*3/uL (0.1-1.2); Monocytes Percent Auto 6.9 % (2-11); Neutrophils Absolute Auto 5.1 x10*3/uL (2.0-8.3); Neutrophils Percent Auto 56.7 % (45-73); Platelet Count 227 X10*3/uL (160-400); Red Blood Count 4.79 X10*6/uL (4.60-5.80); Red Cell Distribution Width 13.7 % (11.0-16.0); White Blood Count 9.1 X10*3/uL (4.8-10.8)
[2021-11-10 20:19] LABS: Acetaminophen LAB 2 mcg/mL (<30); Alanine Aminotransferase 29 U/L (0-40); Albumin Level 4.2 g/dL (3.5-5.0); Alkaline Phosphatase 95 U/L (39-117); Anion Gap 14 (12-20); Aspartate Amino Transferase 17 U/L (5-37); Bilirubin Direct < 0.2 mg/dL (0.0-0.5); Bilirubin Total 0.2 mg/dL (0.0-1.0); Blood Urea Nitrogen 11 mg/dL (9-16); Calcium 9.1 mg/dL (8.4-10.2); Carbon Dioxide 25 mmol/L (22-29); Chloride 103 mmol/L (96-108); Creatinine Clr Calc Pharmacy 137.8; Estimated Glomerular Filt Rate > 60; Glucose Random 92 mg/dL (60-115); Potassium 4.3 mmol/L (3.3-5.1); Sodium 138 mmol/L (135-145); Total Protein 7.2 g/dL (6.5-8.0)
[2021-11-10 21:50] VITALS: BP 130/75; PULSE 67; RESP 16; O2SAT 96
[2021-11-10] MEDS: oxyCODONE HCl Immed Release 5 MG TABLET PO (21:51)
[2021-11-10 22:00] LABS: Appearance Urine CLEAR; Color Urine YELLOW; Glucose Urine UA NEG (NEG); Leukocyte Esterase Urine NEG (NEG); Nitrite Urine NEG (NEG); UACC Culture Trigger NO; Urine Blood 2+ (NEG); Urine Ketones NEG (NEG); Urine Protein NEG (NEG-TRACE)
[2021-11-10 22:06] LABS: Squamous Epithelial Cell Urine TRACE /LPF; WBC Urine 0 /HPF (0-4)
== END 2021-11-10 21:59 | disposition home or self-care (01) ==
PROVIDERS: Emergency Provider Emergency Medicine
DX: R07.9 Chest pain, unspecified (principal); M54.50 Low back pain, unspecified; R13.10 Dysphagia, unspecified; R10.9 Unspecified abdominal pain; Z79.899 Other long term (current) drug therapy
CPT/HCPCS: 36415; 74176; 80048; 80076; 80143; 81001; 81003; 85025; 93005; 96374; 99284; J2270

== ENCOUNTER → 2021-12-20 08:21 | Outpatient (BNVA) | payer MEDICAID, SELFPAY | PROVIDERS: PCP Internal Medicine; Referring Provider Internal Medicine; Visit Provider Internal Medicine Gastroenterology ==

== ENCOUNTER 2022-02-16 08:40 | Outpatient (REF) | payer MEDICAID, SELFPAY ==
--- NOTE | ~2022-02-16 | CT_ITS ---
EXAMINATION: CT ANGIOGRAM CHEST CLINICAL INFORMATION: Thoracic aortic aneurysm without rupture. COMPARISON: CT angiography 11/10/2021, 04/16/2020. TECHNIQUE: Multiple axial images were obtained through the chest prior to and after the administration of 70 mL of Omnipaque 350 intravenous contrast in both arterial and delayed phase. Coronal and sagittal reformatted images were generated from the axial source data as were coronal and sagittal MIPS images. This CT examination was performed using dose optimization techniques as appropriate, variously including the following: *Automated exposure control *Adjustment of mA and/or kV according to patient size (this includes techniques or standardized protocols for targeted exams where dose is matched to indication/reason for exam; i.e. extremities or head) *Use of iterative reconstruction technique DLP: 1026 mGy-cm FINDINGS: VASCULAR: There is stable dilation of the ascending thoracic aorta which measures up to 4.4 cm at the level of the main pulmonary artery. There is no dissection or other acute aortic syndrome involving the ascending aorta. There is a three-vessel aortic arch. The origins of the arch vessels are widely patent and their visualized segments are unremarkable. There has been prior endovascular repair of the previously demonstrated type B aortic dissection with an endograft extending from just beyond the level of the left subclavian artery extending distally into the abdominal aorta and out of field of view. At the level of the T7 the descending aorta measures on the order of 5.9 x 4.[address] 04/16/2020 this measured 5.3 x 4.5 cm. More distally at the level of the hiatus the aorta measures 4.5 x 4.1 cm, previously 3.7 x 3.7 cm. There is an endoleak with contrast opacification of the excluded lumen extending from the level of the right renal artery proximally to the level of the intercostal arteries at T9 (see valles images). 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 There is fusiform dilation of the common hepatic artery to a diameter of 1.3 cm over a length of approximately 2.5 cm and containing a focal dissection. Superior mesenteric artery is patent from its origin and normal in caliber. The right renal artery communicates with both the true and false lumens of the aorta and represents likely source of the aforementioned endoleak. There are apical predominant emphysematous changes of the lungs and a small amount of atelectasis adjacent to the distal thoracic aorta. There is no discrete suspicious nodule, consolidation or ground-glass opacity. The central and peripheral airways are widely patent. There is mild cardiac enlargement. No pericardial effusion or pericardial thickening. There is atherosclerotic calcification of the coronary arteries. The pulmonary arteries are nondilated. While not a dedicated evaluation of pulmonary arteries, no large central emboli are seen. The central venous structures including the pulmonary veins have an unremarkable appearance for an atrophic contrast. No pathologically enlarged thoracic lymph nodes are seen. The axillae are unremarkable. There are mild multilevel degenerative changes of the imaged thoracolumbar spine without an acute or aggressive bony abnormality identified. The incompletely visualized upper abdomen is notable for surgical changes of cholecystectomy. There is no intrahepatic or extrahepatic duct dilation. CT/CT angio chest aorta IMPRESSION: Interval endovascular repair of a type B aortic dissection with increasing diameter of the descending thoracic aorta which now measures up to 5.9 x 4.4 cm at the level of the T7 vertebral body and 4.5 x 4.1 cm just proximal to the aortic hiatus. There is an endoleak with opacification of the excluded lumen extending from the level of the right renal artery to the level of T9 intercostal arteries either representing a type IB endoleak with outflow via the intercostal versus a type II endoleak. Would favor type IB. 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 Stable aneurysmal dilation of the ascending thoracic aorta to 4.4 cm. Fleischner guidelines were followed.
[2022-02-16 09:38] LABS: Anion Gap 11 (12-20); Blood Urea Nitrogen 13 mg/dL (9-16); Calcium 9.1 mg/dL (8.4-10.2); Carbon Dioxide 27 mmol/L (22-29); Chloride 104 mmol/L (96-108); Estimated Glomerular Filt Rate > 60; Glucose Random 133 mg/dL (60-115); Potassium 4.1 mmol/L (3.3-5.1); Sodium 138 mmol/L (135-145)
[2022-02-16] MEDS: iohexoL 350 MG/ML 100 ML INFUS..BTL IV (10:24)
== END 2022-02-16 08:41 | disposition home or self-care (01) ==
LOC: HO.CT 08:40
PROVIDERS: Visit Provider Internal Medicine Cardiovascular Disease
DX: I71.2 Thoracic aortic aneurysm, without rupture (principal); I10 Essential (primary) hypertension
CPT/HCPCS: 36415; 71275; 80048; Q9967

== ENCOUNTER → 2022-02-21 14:38 | Outpatient (REF) | payer MEDICAID, SELFPAY ==
--- NOTE | 2022-02-21 14:41 | CA_ITS ---
Transthoracic Echocardiogram Patient (Last, First, Middle): Silvestre Villalobos A Gender: Male Date of : 1965 Age: 56 Procedure Date: 02/21/2022 Procedure Type: Transthoracic Echocardiogram Location: OP Height: 177.8 cm Weight: 124.74 kg BSA: 2.39 m2 Heart Rate: bpm BP: 140 / 90 mmHg [employer] Buildings [employer]er: [email or web address] Referring MD: Tyree Weber MD Symptoms: I71.2 - Thoracic aortic aneurysm, without rupture Study Quality: Fair/Contrast ECG Rhythm: Sinus Conclusions: - The left ventricular systolic function is normal. The calculated ejection fraction is 64% by biplane method. - There is moderate dilatation of the ascending aorta measuring 4.60 cm. - There is mild aortic valve regurgitation. Findings Procedure Information Contrast agent, definity, is being given per protocol without apparent complications. Left Ventricle Normal left ventricular cavity size. There is mildly increased left ventricular wall thickness. The left ventricular systolic function is normal. The calculated ejection fraction is 64% by biplane method. There is no evidence of regional wall motion abnormalities. Diastolic function is normal for age. Right Ventricle Normal right ventricular cavity size and systolic function. Atria Both atria are normal in size. Aortic Valve There is a normal trileaflet aortic valve. There is no aortic valve stenosis. There is mild aortic valve regurgitation. Mitral Valve There is mild anterior and posterior mitral leaflet thickening. There is mild mitral annular calcification. There is trace mitral valve regurgitation. There is no mitral valve stenosis. Pulmonic Valve The pulmonic valve is likely normal. Tricuspid Valve Normal tricuspid valve structure. There is mild tricuspid valve regurgitation. There is no evidence of pulmonary hypertension. Great Vessels The sinuses of valsalva is normal in size. There is moderate dilatation of the ascending aorta measuring 4.60 cm. Venous The inferior vena cava is normal in size and collapses greater than 50% with inspiration. Pericardium/Pleural There is no evidence of pericardial effusion. Prior Study Comparison No significant change compared to prior study dated: 02/04/2021. Measurements 2D Linear Measurements IVSd: 1.14 0.6-0.9/0.6-1.0 cm LVIDd: 5.29 3.9-5.3/4.2-5.9 cm LVIDd Index: 2.21 2.4-3.2/2.2-3.1 cm/m2 LVIDs: 3.43 2.0-3.6 cm LVPWd: 1.10 0.7-1.1 cm LA Diam: 4.00 2.7-3.8/3.0-4.0 cm LAIDs Index: 1.67 1.5-2.3 cm/m2 LV Mass: 290.08 67-162/88-224 g LV Mass Index: 121.37 43-95/49-115 g/m2 LVOT Diam: 2.00 3.0+(-)1.3 cm 2D Systolic Function EF 4C: 64.00 >55% EF 2C: 64.40 >55% EF BiP: 63.90 >55% Mitral Valve MV Pk E: 0.74 MV PK A: 0.97 MV Decel Time: 305.00 E/A: 0.80 E'Lateral: 8.59 E'Medial: 6.74 E/E' Med: 10.90 E/E' Lat: 8.60 PHT: 89.00 MVA PHT: 2.47 Decel Pasco: 2.42 Aortic Valve AoV Pk Nicko: 1.52 AoV Mn Nicko: 1.07 AoV VTI: 0.35 AoV Pk Grad: 9.00 Aov Mn Grad: 5.00 LEESA Cont.VTI: 1.91 LVOT LVOT Pk Nicko: 0.98 LVOT Mn Nicko: 0.66 LVOT VTI: 0.21 LVOT Pk Grad: 4.00 LVOT Mn Grad: 2.00 LVOT Diam: 2.00 LVOT Area: 3.14 Diastolic Function MV Pk E: 0.74 MV Pk A: 0.97 E/A: 0.80 E'Medial: 6.74 E/E' Med: 10.90 E' Laterial: 8.59 E/E' Lat: 8.60 Right Ventricle TAPSE (mm): 25.90 TVS' Nicko: 15.30 Tricuspid Valve TR Pk Nicko: 2.81 TR Pk Grad: 32.00 RA Press: 3.00 RVSP: 35.00 Great Vessels Aorta Sinus of Valsalva: 3.70 2.0-3.5 cm Ao Asc: 4.60 2.1-3.4 cm Updated in Other Vendor System with Status of Final Jose Manuel Bright MD electronically signed on 02/22/2022 11:20:20 AM with status of Final
== END ==
LOC: HO.CARD 14:38
PROVIDERS: Visit Provider Internal Medicine Cardiovascular Disease
DX: I71.2 Thoracic aortic aneurysm, without rupture (principal)
CPT/HCPCS: 93306; Q9957

== ENCOUNTER → 2022-03-14 12:41 | Outpatient (BNVA) | payer MEDICAID, SELFPAY | PROVIDERS: PCP Internal Medicine; Referring Provider Internal Medicine; Visit Provider Internal Medicine Cardiovascular Disease | DX: I71.2 Thoracic aortic aneurysm, without rupture (principal); I10 Essential (primary) hypertension | CPT/HCPCS: 99212 ==

== ENCOUNTER 2022-05-04 11:09 | Emergency (ER) | payer MEDICAID, SELFPAY ==
--- NOTE | ~2022-05-04 | XR_ITS ---
EXAMINATION: XR CHEST CLINICAL INFORMATION: Chest pain COMPARISON: None TECHNIQUE: 2 views of the chest were obtained. FINDINGS: Both lungs are well-expanded and clear of acute pneumonic process. The heart size and pulmonary vascularity is normal. There is descending aortic stent. There is moderate spondylosis dorsal spine. No lytic process seen. XR/XR chest 2V IMPRESSION: Expanded lungs without acute process.
--- NOTE | ~2022-05-04 | US_ITS ---
EXAMINATION: US VENOUS ULTRASOUND WITH DOPPLER LOWER EXTREMITY, BILATERAL CLINICAL INFORMATION: Bilateral leg edema COMPARISON: None TECHNIQUE: Ultrasound of the deep veins is performed from the hip to the calf with compression sonography and color and pulse Doppler assessment. Spectral analysis with color-flow imaging is performed. FINDINGS: RIGHT: There is normal venous compression and respiratory variation and augmented flow. The visualized common femoral vein, superficial femoral vein, profunda femoral vein, popliteal vein, and the trifurcation region shows no evidence of deep venous thrombosis. There is no significant popliteal fossa cyst. Incidental finding of groin lymph node measuring 3.3 x 0.9 x 1.7 cm. There is echogenic medulla within. LEFT: There is normal venous compression and respiratory variation and augmented flow. The visualized common femoral vein, superficial femoral vein, profunda femoral vein, popliteal vein, and the trifurcation region shows no evidence of deep venous thrombosis. There is no significant popliteal fossa cyst. If the patient's symptoms persist, followup ultrasound in 5 days 7 days might be of value to exclude proximal propagation from a non-visualized calf vein. US/US venous duplex LE BI IMPRESSION: No DVT demonstrated in the bilateral lower extremity. Incidental finding of prominent right inguinal lymph node that appears to have normal lymph node architecture.
--- NOTE | ~2022-05-04 | CT_ITS ---
STUDY PERFORMED: CTA OF THE CHEST, ABDOMEN AND PELVIS WITH AND WITHOUT CONTRAST CLINICAL INFORMATION: Reason for Exam pt c chest pain hx f dissection DESCRIPTION: Initial noncontrast CT of the chest was performed. Contrast timing was performed at the level of the distal descending thoracic aorta. Subsequently, arterial phase multidetector volumetric imaging was performed through the chest, abdomen and pelvis following the administration of 100 mL Omnipaque 350 intravenous contrast No contrast reaction reported Sagittal and coronal reformatted images were obtained on the technologist workstation. Three-dimensional MIP reformatted imaging was performed and reviewed. This CT examination was performed using dose optimization techniques as appropriate, variously including the following: *Automated exposure control *Adjustment of mA and/or kV according to patient size (this includes techniques or standardized protocols for targeted exams where dose is matched to indication/reason for exam; i.e. extremities or head) *Use of iterative reconstruction technique Total exam dose-length product 1146 mGy-cm COMPARISON: Chest CTA 02/16/2022 FINDINGS: VASCULAR FINDINGS: 1. 3 cusped aortic valve. Normal origins of the main coronary arteries. The ascending thoracic aorta is normal in course and caliber without dissection. 2. The aortic arch is normal in course and caliber without dissection. Normal 3 vessel branching configuration. 3. Status post endovascular stent grafting of the descending aorta, abdominal aorta extending into the common iliac arteries bilaterally. The descending thoracic aorta measures approximately 5.1 cm in diameter as on prior. Contrast opacification of a portion of the distal descending thoracic aorta, suprarenal extending through infrarenal abdominal aorta consistent with endoleak, similar to prior. 4. Dilation of the suprarenal abdominal aorta up to 4.2 cm in diameter, unchanged. Unchanged mass effect is incomplete expansion of the abdominal aortic stent graft. Graft lumen remains patent. 5. Stenosis of the celiac origin, unchanged. SMA are patent. Dilation of the right common hepatic artery with focal dissection, unchanged. Single bilateral renal arteries are widely patent. DEBBIE is occluded at the origin. Iliac arteries, common femoral, proximal SFA and profunda femoral arteries are widely patent. 7. Although not tailored for evaluation of the pulmonary arteries, there is no central pulmonary embolism. NONVASCULAR FINDINGS: CHEST: Lungs: Unchanged small sub-4 mm right upper lobe pulmonary nodules on series 8 image 135 and perifissural nodule right middle lobe. Minimal left basilar atelectasis and dependent right basilar atelectasis. No airspace consolidation Airways: Central through segmental airways are clear. Pleura and pericardium: No pleural or pericardial effusions. Heart: No cardiomegaly. LAD and left circumflex coronary calcification. Lymph nodes:No mediastinal, hilar, or axillary lymphadenopathy. Chest Wall: No chest wall mass. ABDOMEN/PELVIS: Liver: Normal size and attenuation. No liver lesions. Reflux of contrast into the IVC and hepatic veins. Gallbladder and bile ducts:Status post cholecystectomy. No biliary ductal dilation. Pancreas: No pancreatic lesion, ductal dilation, or peripancreatic inflammatory change. Spleen: Normal size. No splenic lesion. Adrenal Glands: Unremarkable. Kidneys and Ureters: Symmetric nephrograms. No hydronephrosis. Subcentimeter left upper pole hypodense renal lesion likely a small cyst, too small to characterize. Lymph nodes: No retroperitoneal or mesenteric lymphadenopathy. Gastrointestinal Tract: Mild sigmoid diverticulosis. No evidence of acute diverticulitis. No dilated bowel loops. No bowel wall thickening. Peritoneum: No ascites or intra-abdominal free air. Abdominal wall: Small fat-containing umbilical hernia. Small fat-containing bilateral inguinal hernias. Bladder: Unremarkable. Pelvic Viscera: Unremarkable. Bones: No acute fracture or suspicious osseous lesion. Mild multilevel degenerative disc disease. CT/CT angio abdomen pelvis IMPRESSION: 1. Status post endovascular repair of type B aortic dissection with unchanged dilation of the [place] aneurysm sac measuring 5.1 cm the level of the descending thoracic aorta and 4.2 cm at the suprarenal aorta. 2. Unchanged appearance of the endoleak with contrast opacification of the [place] aneurysm sac extending from T9 distally to the aortic bifurcation. 3. Unchanged celiac origin stenosis with fusiform dilation of the common hepatic artery and focal dissection. 4. No other acute process identified.
--- NOTE | ~2022-05-04 | CT_ITS ---
STUDY PERFORMED: CTA OF THE CHEST, ABDOMEN AND PELVIS WITH AND WITHOUT CONTRAST CLINICAL INFORMATION: Reason for Exam pt c chest pain hx f dissection DESCRIPTION: Initial noncontrast CT of the chest was performed. Contrast timing was performed at the level of the distal descending thoracic aorta. Subsequently, arterial phase multidetector volumetric imaging was performed through the chest, abdomen and pelvis following the administration of 100 mL Omnipaque 350 intravenous contrast No contrast reaction reported Sagittal and coronal reformatted images were obtained on the technologist workstation. Three-dimensional MIP reformatted imaging was performed and reviewed. This CT examination was performed using dose optimization techniques as appropriate, variously including the following: *Automated exposure control *Adjustment of mA and/or kV according to patient size (this includes techniques or standardized protocols for targeted exams where dose is matched to indication/reason for exam; i.e. extremities or head) *Use of iterative reconstruction technique Total exam dose-length product 1146 mGy-cm COMPARISON: Chest CTA 02/16/2022 FINDINGS: VASCULAR FINDINGS: 1. 3 cusped aortic valve. Normal origins of the main coronary arteries. The ascending thoracic aorta is normal in course and caliber without dissection. 2. The aortic arch is normal in course and caliber without dissection. Normal 3 vessel branching configuration. 3. Status post endovascular stent grafting of the descending aorta, abdominal aorta extending into the common iliac arteries bilaterally. The descending thoracic aorta measures approximately 5.1 cm in diameter as on prior. Contrast opacification of a portion of the distal descending thoracic aorta, suprarenal extending through infrarenal abdominal aorta consistent with endoleak, similar to prior. 4. Dilation of the suprarenal abdominal aorta up to 4.2 cm in diameter, unchanged. Unchanged mass effect is incomplete expansion of the abdominal aortic stent graft. Graft lumen remains patent. 5. Stenosis of the celiac origin, unchanged. SMA are patent. Dilation of the right common hepatic artery with focal dissection, unchanged. Single bilateral renal arteries are widely patent. DEBBIE is occluded at the origin. Iliac arteries, common femoral, proximal SFA and profunda femoral arteries are widely patent. 7. Although not tailored for evaluation of the pulmonary arteries, there is no central pulmonary embolism. NONVASCULAR FINDINGS: CHEST: Lungs: Unchanged small sub-4 mm right upper lobe pulmonary nodules on series 8 image 135 and perifissural nodule right middle lobe. Minimal left basilar atelectasis and dependent right basilar atelectasis. No airspace consolidation Airways: Central through segmental airways are clear. Pleura and pericardium: No pleural or pericardial effusions. Heart: No cardiomegaly. LAD and left circumflex coronary calcification. Lymph nodes:No mediastinal, hilar, or axillary lymphadenopathy. Chest Wall: No chest wall mass. ABDOMEN/PELVIS: Liver: Normal size and attenuation. No liver lesions. Reflux of contrast into the IVC and hepatic veins. Gallbladder and bile ducts:Status post cholecystectomy. No biliary ductal dilation. Pancreas: No pancreatic lesion, ductal dilation, or peripancreatic inflammatory change. Spleen: Normal size. No splenic lesion. Adrenal Glands: Unremarkable. Kidneys and Ureters: Symmetric nephrograms. No hydronephrosis. Subcentimeter left upper pole hypodense renal lesion likely a small cyst, too small to characterize. Lymph nodes: No retroperitoneal or mesenteric lymphadenopathy. Gastrointestinal Tract: Mild sigmoid diverticulosis. No evidence of acute diverticulitis. No dilated bowel loops. No bowel wall thickening. Peritoneum: No ascites or intra-abdominal free air. Abdominal wall: Small fat-containing umbilical hernia. Small fat-containing bilateral inguinal hernias. Bladder: Unremarkable. Pelvic Viscera: Unremarkable. Bones: No acute fracture or suspicious osseous lesion. Mild multilevel degenerative disc disease. CT/CT angio chest aorta IMPRESSION: 1. Status post endovascular repair of type B aortic dissection with unchanged dilation of the [place] aneurysm sac measuring 5.1 cm the level of the descending thoracic aorta and 4.2 cm at the suprarenal aorta. 2. Unchanged appearance of the endoleak with contrast opacification of the [place] aneurysm sac extending from T9 distally to the aortic bifurcation. 3. Unchanged celiac origin stenosis with fusiform dilation of the common hepatic artery and focal dissection. 4. No other acute process identified.
--- NOTE | 2022-05-04 11:12 | ECG_ITS ---
Test Reason : chest pain Blood Pressure : / mmHG Vent. Rate : 065 BPM Atrial Rate : 065 BPM P-R Int : 192 ms QRS Dur : 090 ms QT Int : 420 ms P-R-T Axes : 042 008 042 degrees QTc Int : 436 ms Normal sinus rhythm Cannot rule out Inferior infarct , age undetermined T wave abnormality, consider anterior ischemia Abnormal ECG When compared with ECG of 10-NOV-2021 18:15, No significant change was found Referred By: Generic ED Physician Electronically Signed By:DAYRON RIVERO
[2022-05-04 11:14] VITALS: BP 139/70; PULSE 65; RESP 18; TEMP 36.6; O2SAT 95; BMI 41.5
[2022-05-04 11:48] LABS: MANUAL DIFF FLAG NO
[2022-05-04 11:49] LABS: Basophils Absolute Auto 0.1 X10*3/uL (0.0-0.2); Basophils Percent Auto 0.6 % (0-2); Eosinophils Absolute Auto 0.3 X10*3/uL (0.0-0.4); Eosinophils Percent Auto 3.7 % (0-4); Hematocrit 38.8 % (42.0-52.0); Hemoglobin 13.2 g/dl (14.0-18.0); Imm Gran Abs Auto 0.02 X10*3/uL (0.00-0.03); Imm Gran Pct Auto 0.2 % (0.0-0.4); Lymphocytes Absolute Auto 2.5 X10*3/uL (1.2-4.9); Lymphocytes Percent Auto 30.5 % (20-40); Mean Corpuscular Hemoglobin 28.9 pg (27.0-33.0); Mean Corpuscular Volume 85.1 fL (80.0-98.0); Mean Platelet Volume 8.5 fL (9.4-12.4); Monocytes Absolute Auto 0.6 X10*3/uL (0.1-1.2); Monocytes Percent Auto 7.2 % (2-11); Neutrophils Absolute Auto 4.7 x10*3/uL (2.0-8.3); Neutrophils Percent Auto 57.8 % (45-73); Platelet Count 242 X10*3/uL (160-400); Red Blood Count 4.56 X10*6/uL (4.60-5.80); Red Cell Distribution Width 13.1 % (11.0-16.0); White Blood Count 8.1 X10*3/uL (4.8-10.8)
[2022-05-04 11:55] LABS: Prothrombin Time 11.2 SEC (10.0-13.1)
[2022-05-04] MEDS: ondansetron HCL 4 MG/2 ML VIAL IVPUSH ×3 (11:56→18:59)
[2022-05-04] MEDS: Aspirin 81 MG TAB.CHEW 324 MG PO (11:56)
[2022-05-04 11:57] LABS: D Dimer High Sensitivity 1521 NG/ML
[2022-05-04 11:59] VITALS: RESP 16
[2022-05-04] MEDS: Morphine Sulfate 4 MG/ML CARTRIDGE IVPUSH ×3 (11:59→18:59)
[2022-05-04 12:00] LABS: Lactic Acid 1.5 mmol/L (0.5-2.0)
[2022-05-04 12:12] LABS: Troponin-I High Sensitivity < 3.5 ng/L (<3.5-35.0)
--- NOTE | 2022-05-04 12:13 | ED_ITS ---
HPI - Chest Pain General Chief Complaint: Chest Pain Stated Complaint: Chest pain Time Seen by Provider: 05/04/22 11:28 Source: patient Mode of arrival: ambulatory Limitations: no limitations History of Present Illness HPI narrative: 57-year-old male with a past medical history of ascending aortic aneurysm where he had a descending thoracic aortic dissection and had endovascular graft placement currently only on 81 mg aspirin daily being followed by [facility] vascular surgeon and Dr. Weber here at [facility], hypertension, hypercholesterolemia, pulmonary hypertension, PVD, morbid obesity, chronic leg edema, anxiety, anemia, obstructive sleep apnea and PUD presenting to the ER with complaints of 3 weeks of chest pain to the right side of his chest where he feels like a bar is going right through the right side of my chest into my back . Worsened in the past 3 days this is why he came today. Reports that this does not feel like his dissection he had in the past due to the pain/ feeling like a bar was going to his chest was on the opposite side the left side. He also reports generalized fatigue, malaise, shortness of breath, dyspnea on exertion. he reports he did follow-up with Dr. Weber and Dr. Weber told me I had a leak in the graft that they placed and told me to follow up with my vascular surgeon Dr. Marino when I followed up with Dr. Marino vascular surgeon they told me the graft was fine and there was no leak therefore I ignored the pain until approximately 3 days ago where the symptoms worsen . He denies any dizziness at this time, headaches, nausea / vomiting, jaw pain, cough, paresthesias, weakness, abdominal pain, flank pain, rashes, recent falls or trauma, history of IV drug use, worsening lower extremity edema or any other symptoms complaints or concerns at this time. MD complaint: chest pain Pertinent past history: other ( See above) Onset (ago): week(s) (3 weeks worse in 3 days ) Timing of current episode: constant Prior episodes: Yes Onset: during rest Pain location: right chest Pain radiation: back Severity: moderate Quality: heaviness ( burning/stabbing his chest like a Nile is going into chest out of my back ) Relieving factors: nothing Exacerbating factors: exertion and movement Associated symptoms: dyspnea and leg swelling (chronic per patient ) Treatment prior to arrival: none Risk Factors Coronary artery disease risk factors: hyperlipidemia and hypertension Thoracic aortic dissection risk factors: prior thoracic aortic dissection and history of thoracic aortic aneurysm Related Data Home Medications Medication Instructions Recorded Confirmed atorvastatin 40 mg tablet 40 mg PO BEDTIME 05/27/20 03/14/22 carvedilol 25 mg tablet (Coreg) 25 mg PO BID 05/27/20 03/14/22 lisinopril 40 mg tablet 40 mg PO DAILY 05/27/20 03/14/22 aspirin 81 mg tablet,delayed 81 mg PO DAILY 08/31/21 03/14/22 release (Adult Aspirin Regimen) budesonide-formoterol HFA 80 inhalation 08/31/21 03/14/22 mcg-4.5 mcg/actuation aerosol inhaler (Symbicort) trazodone 50 mg tablet 50 mg PO BEDTIME 08/31/21 03/14/22 duloxetine 60 mg capsule,delayed 60 mg PO DAILY 12/20/21 03/14/22 release Previous Rx's Medication Instructions Recorded naloxegol 12.5 mg tablet (Movantik) 12.5 mg PO QAM #30 tabs 07/13/21 pantoprazole 40 mg tablet,delayed 40 mg PO BID #90 tabs 07/13/21 release cyclobenzaprine 5 mg tablet 5 mg PO TID PRN muscle spasm #7 11/10/21 tabs sucralfate 100 mg/mL oral 10 ml PO BID #1,000 mL 04/13/22 suspension (Carafate) Allergies Allergy/AdvReac Type Severity Reaction Status Date / Time baclofen [BACLOFEN] Allergy Intermediate RASH Verified 12/20/21 08:22 Review of Systems Review of Systems: Constitutional : No Weight loss, No Fever, No Chills, No Night Sweats, No Fatigue, No Malaise ENT/Mouth : No Hearing loss, No Ear Pain, No Nasal Congestion, No Sinus Pain, No Hoarseness, No sore throat, No Rhinorrhea, No Swallowing Difficulty Eyes: No Eye Pain, No Swelling, No Redness, No Foreign Body, No Discharge, No Vision Changes Cardiovascular : + Chest pain, + SOB, + Dyspnea on Exertion, + Orthopnea, Chronic LE edema, No Palpitations Respiratory : No Cough, No Sputum, No Wheezing, No Dyspnea Gastrointestinal : No Nausea, No Vomiting, No Diarrhea, No abdominal Pain, No Hematochezia, No Melena Genitourinary : No irregular bleeding, No Dysuria, No Urinary Frequency, No Hematuria, No Urinary Incontinence, No Urgency, No Flank Pain, No Urinary Flow Changes, No Hesitancy Musculoskeletal : No joint pain, No Myalgias, No Joint Swelling Skin : No Skin Lesions, No rash Neuro : No Weakness, No Numbness, No Paresthesias, No Loss of Consciousness, No Dizziness, No Headache Psych : No Anxiety/Panic, No Depression, No SI/HI/AH/VH Heme/Lymph: No Bruising, No Bleeding,No Lymphadenopathy Endocrine : No Polyuria, No Polydipsia, No Temperature Intolerance Yes all other systems are reviewed and are negative [facility] Past Medical History Attestation statement: The following information was validated with the patient. Source: old records reviewed and nursing notes reviewed Medical History Anemia Anxiety Ascending aortic aneurysm Back pain Constipation Descending thoracic aortic dissection Esophagitis Fatty liver GERD (gastroesophageal reflux disease) HTN (hypertension) Hx of lipoma Hypercholesteremia Leg edema Morbid obesity VALERY (obstructive sleep apnea) Peptic ulcer disease Peripheral vascular disease Pulmonary hypertension Sacroiliac joint dysfunction of right side Sacroiliac joint pain Sacroiliitis Sacroiliitis SOB (shortness of breath) Thoracic aneurysm without mention of rupture Surgical History History of arthroscopy of both knees History of carpal tunnel release of both wrists History of esophagogastroduodenoscopy (EGD) Hx of cholecystectomy Hx of colonoscopy Family History Family History Father Depression Suicide Mother Diabetes Dementia Heart problem Sister Dementia, Onset Age: 73 Sister No problems noted. Brother No problems noted. Family/Other No problems noted. Social History Social History Alcohol intake: former Patient Tobacco Use Status: Former Tobacco user Quit Date: 2019 Years Smoked: 30 +/- Advance Directives: No Advance Directives Information Provided: No Physical Exam Vital Signs: Vital Signs: Last Vital Signs Temp 98 F 05/04/22 11:14 Pulse 65 05/04/22 11:14 Resp 16 05/04/22 15:03 BP 139/70 05/04/22 11:14 Pulse Ox 95 05/04/22 11:14 O2 Del Method 05/04/22 11:14 BMI result Body Mass Index 41.5 vital signs have been reviewed as normal and appeared to be correct. Blood pressure normal. Heart rate normal. Respiration rate normal. Temperature normal. Oxygen saturation normal. Appearance: Alert. Oriented X3. No acute distress. Head: Normal external exam. Normocephalic. Atraumatic. Eyes: PERRLA. EOMI. Conjunctiva and sclera normal. Eyelids normal. ENT: Pharynx normal. Uvula midline. Moist mucous membranes. No lesions/ulcerations or masses noted on the tongue. Normal voice. No trismus noted. No drooling noted. No muffled voice noted. Neck: Normal inspection. Neck supple. FROM. No adenopathy. Thyroid Normal. No meningeal signs. No neck mass noted. No signs of trauma noted. CVS: Normal heart rate and rhythm. Heart sound normal. Pulses normal throughout. No murmurs/rales/gallops. Respiratory: No respiratory distress. Painless inspiration. Breath sounds normal. No wheezes/rales/rhonchi noted. Chest nontender. No crepitus is noted. No accessory muscle usage noted or decreased air movement noted. No signs of trauma. Abdomen: Soft and nontender. Nondistended. No guarding. No rigidity. Bowel sounds normal in all 4 quadrants. No distention noted. No organomegaly noted. No visible injury noted. No rebound tenderness. Negative Rovsing sign. Negative obturator's sign. Negative psoas sign. Negative Paulson sign. Back: No CVA tenderness. Full range of motion noted. Nontender. No signs of trauma. Patient neuro intact bilaterally and distally on all 4 extremities. Patient's reflexes intact bilaterally and distally on all 4 extremities. No rashes/lesion/induration/fluctuance or signs of infection noted. Skin: Skin warm and dry. Normal skin color. Normal skin turgor. No rashes/lesions/lacerations noted. Extremities: +1 lower extremity edema and calf tenderness noted bilaterally. Extremities exhibit normal range of motion and nontender. Neuro: Oriented X 3. No motor deficit. No sensory deficit. Reflexes normal. Normal steady gait. No focal neuro deficits noted. CN's II-XII intact bilaterally? Vascular: + radial pulses/+ 2 distal pedal pulses/+2 dorsalis pedis b/l. Normal cap refill. No cyanosis noted to upper extremity nails and lower extremity toes nails. Course Course Course Narrative: 11:30am 57-year-old male with a past medical history of ascending aortic aneurysm where he had a descending thoracic aortic dissection and had endovascular graft placement currently only on 81 mg aspirin daily being followed by [facility] vascular surgeon and Dr. Weber here at [facility], hypertension, hypercholesterolemia, pulmonary hypertension, PVD, morbid obesity, chronic leg edema, anxiety, anemia, obstructive sleep apnea and PUD presenting to the ER with complaints of 3 weeks of chest pain to the right side of his chest where he feels like a bar is going right through the right side of my chest into my back . Worsened in the past 3 days this is why he came today. Reports that this does not feel like his dissection he had in the past due to the pain/ feeling like a bar was going to his chest was on the opposite side the left side. He also reports generalized fatigue, malaise, shortness of breath, dyspnea on exertion. He reports he did follow-up with Dr. Weber and Dr. Weber told me I had a leak in the graft that they placed and told me to follow up with my vascular surgeon Dr. Marino when I followed up with Dr. Marino vascular surgeon they told me the graft was fine and there was no leak therefore I ignored it until approximately 3 days ago where the symptoms worsen . Plan: Labs, CXR, EKG, CTA of chest /aorta, CTA of abdomen and pelvis, venous duplex ultrasound of bilateral lower extremity. Provide 324 mg of chewable aspirin, 4 mg of Zofran and 4 mg of morphine. Will not give nitro paste at this time due to patient blood pressure is 139/70. Will re-evaluate. Reevaluation(s) Reevaluation #1: - labs reviewed and patient with H&H of 13.2/38.8. D-dimer 1521. Random glucose 150. Otherwise all other labs are within normal limits including troponin which is negative. Patient negative for COVID. - Chest x-ray revealed chronic changes no acute processes noted. - EKG is normal sinus rhythm although patient noted to have T-wave inversions which is similar compared to prior although he is noted to have new Q-waves in leads 3 and AVF otherwise no other acute ischemic changes noted and not consistent with a STEMI at this time. - Awaiting CTA of chest and CTA of abdomen and pelvis along with venous duplex ultrasound of bilateral lower extremity will re-evaluate. Time: 12:42 Reevaluation #2: - I discussed this case with Dr. Ma and he recommended possibly transferring the patient to [facility] so he can be further evaluated due to he is already established with the vascular surgeons there. He also reports that he reviewed the notes a [facility] vascular surgeon for the patient and he does not mention any leak on his noted in Dr. Ma reported if there was a leak that would be significant and it would be in a no somewhere in the patient's chart at [facility] therefore he does not believe the vascular surgeon is aware about this leak . - Therefore I discussed this case with vascular surgeon at [facility] Dr. Frost and he agreed with the transfer and he accepted patient at this time patient will be sent to the ED via EMS for further evaluation treatment. Patient understands agreeable to this. Time: 16:55 MDM - Chest Pain Medical Records Data Attestation: I reviewed the patient's medical records. Lab Data Attestation: I reviewed the patient's lab results. Result diagrams: 05/04/22 11:41 05/04/22 11:41 Labs: Lab Results 05/04/22 05/04/22 05/04/22 Range/Units 11:41 11:41 11:41 WBC 8.1 (4.8-10.8) X10*3/uL RBC 4.56 L (4.60-5.80) X10*6/uL Hgb 13.2 L (14.0-18.0) g/dl Hct 38.8 L (42.0-52.0) % MCV 85.1 (80.0-98.0) fL MCH 28.9 (27.0-33.0) pg MCHC 34.0 (31.0-36.0) g/dl RDW 13.1 (11.0-16.0) % Plt Count 242 (160-400) X10*3/uL MPV 8.5 L (9.4-12.4) fL Immature Gran % (Auto) 0.2 (0.0-0.4) % Neut % (Auto) 57.8 (45-73) % Lymph % (Auto) 30.5 (20-40) % [place] % (Auto) 7.2 (2-11) % Eos % (Auto) 3.7 (0-4) % Baso % (Auto) 0.6 (0-2) % Lymph # (Auto) 2.5 (1.2-4.9) X10*3/uL [place] # (Auto) 0.6 (0.1-1.2) X10*3/uL Eos # (Auto) 0.3 (0.0-0.4) X10*3/uL Baso # (Auto) 0.1 (0.0-0.2) X10*3/uL Abs Immat Gran (auto) 0.02 (0.00-0.03) X10*3/uL Absolute Neuts (auto) 4.7 (2.0-8.3) x10*3/uL Absolute Nucleated RBC 0.000 (0.0-0.012) X10*3/uL Nucleated RBC % (auto) 0.0 (0.0-0.2) /100WBC PT (10.0-13.1) SEC INR (0.9-1.1) D-Dimer High Sensitivty NG/ML Sodium (135-145) mmol/L Potassium (3.3-5.1) mmol/L Chloride (96-108) mmol/L Carbon Dioxide (22-29) mmol/L Anion Gap (12-20) BUN (9-16) mg/dL Creatinine (0.5-1.4) mg/dL Estim Creat Clear Calc Estimated GFR Random Glucose (60-115) mg/dL Lactic Acid (0.5-2.0) mmol/L Calcium (8.4-10.2) mg/dL Magnesium (1.6-2.6) mg/dL Total Bilirubin (0.0-1.0) mg/dL Direct Bilirubin (0.0-0.5) mg/dL AST (5-37) U/L ALT (0-40) U/L Alkaline Phosphatase (39-117) U/L Troponin I High Sens < 3.5 (<3.5-35.0) ng/L Total Protein (6.5-8.0) g/dL Albumin (3.5-5.0) g/dL COVID-19 (RHONDA) Negative (Negative) COVID-19 Clin Com See Note 05/04/22 05/04/22 05/04/22 Range/Units 11:41 11:41 11:41 WBC (4.8-10.8) X10*3/uL RBC (4.60-5.80) X10*6/uL Hgb (14.0-18.0) g/dl Hct (42.0-52.0) % MCV (80.0-98.0) fL MCH (27.0-33.0) pg MCHC (31.0-36.0) g/dl RDW (11.0-16.0) % Plt Count (160-400) X10*3/uL MPV (9.4-12.4) fL Immature Gran % (Auto) (0.0-0.4) % Neut % (Auto) (45-73) % Lymph % (Auto) (20-40) % [place] % (Auto) (2-11) % Eos % (Auto) (0-4) % Baso % (Auto) (0-2) % Lymph # (Auto) (1.2-4.9) X10*3/uL [place] # (Auto) (0.1-1.2) X10*3/uL Eos # (Auto) (0.0-0.4) X10*3/uL Baso # (Auto) (0.0-0.2) X10*3/uL Abs Immat Gran (auto) (0.00-0.03) X10*3/uL Absolute Neuts (auto) (2.0-8.3) x10*3/uL Absolute Nucleated RBC (0.0-0.012) X10*3/uL Nucleated RBC % (auto) (0.0-0.2) /100WBC PT 11.2 (10.0-13.1) SEC INR 1.0 (0.9-1.1) D-Dimer High Sensitivty 1521 NG/ML Sodium 139 (135-145) mmol/L Potassium 3.9 (3.3-5.1) mmol/L Chloride 105 (96-108) mmol/L Carbon Dioxide 25 (22-29) mmol/L Anion Gap 13 (12-20) BUN 9 (9-16) mg/dL Creatinine 0.76 (0.5-1.4) mg/dL Estim Creat Clear Calc 146.2 Estimated GFR > 60 Random Glucose 150 H (60-115) mg/dL Lactic Acid 1.5 (0.5-2.0) mmol/L Calcium 9.0 (8.4-10.2) mg/dL Magnesium 1.6 (1.6-2.6) mg/dL Total Bilirubin 0.3 (0.0-1.0) mg/dL Direct Bilirubin < 0.2 (0.0-0.5) mg/dL AST 16 (5-37) U/L ALT 25 (0-40) U/L Alkaline Phosphatase 98 (39-117) U/L Troponin I High Sens (<3.5-35.0) ng/L Total Protein 6.7 (6.5-8.0) g/dL Albumin 3.9 (3.5-5.0) g/dL COVID-19 (RHONDA) (Negative) COVID-19 Clin Com Imaging Data Chest x-ray: Attestation: I personally reviewed and interpreted this imaging study as follows: Radiologist's impression: FINDINGS: Both lungs are well-expanded and clear of acute pneumonic process. The heart size and pulmonary vascularity is normal. There is descending aortic stent. There is moderate spondylosis dorsal spine. No lytic process seen. XR/XR chest 2V IMPRESSION: Expanded lungs without acute process. chest CTA and CT scan abdomen pelvis CTA: Attestation: I personally reviewed and interpreted this imaging study as follows: Radiologist's impression: FINDINGS: VASCULAR FINDINGS: 1. 3 cusped aortic valve. Normal origins of the main coronary arteries. The ascending thoracic aorta is normal in course and caliber without dissection. 2. The aortic arch is normal in course and caliber without dissection. Normal 3 vessel branching configuration. 3. Status post endovascular stent grafting of the descending aorta, abdominal aorta extending into the common iliac arteries bilaterally. The descending thoracic aorta measures approximately 5.1 cm in diameter as on prior. Contrast opacification of a portion of the distal descending thoracic aorta, suprarenal extending through infrarenal abdominal aorta consistent with endoleak, similar to prior. 4. Dilation of the suprarenal abdominal aorta up to 4.2 cm in diameter, unchanged. Unchanged mass effect is incomplete expansion of the abdominal aortic stent graft. Graft lumen remains patent. 5. Stenosis of the celiac origin, unchanged. SMA are patent. Dilation of the right common hepatic artery with focal dissection, unchanged. Single bilateral renal arteries are widely patent. DEBBIE is occluded at the origin. Iliac arteries, common femoral, proximal SFA and profunda femoral arteries are widely patent. 7. Although not tailored for evaluation of the pulmonary arteries, there is no central pulmonary embolism. NONVASCULAR FINDINGS: CHEST: Lungs: Unchanged small sub-4 mm right upper lobe pulmonary nodules on series 8 image 135 and perifissural nodule right middle lobe. Minimal left basilar atelectasis and dependent right basilar atelectasis. No airspace consolidation Airways: Central through segmental airways are clear. Pleura and pericardium: No pleural or pericardial effusions. Heart: No cardiomegaly. LAD and left circumflex coronary calcification. Lymph nodes:No mediastinal, hilar, or axillary lymphadenopathy. Chest Wall: No chest wall mass.? ABDOMEN/PELVIS: Liver: Normal size and attenuation. No liver lesions. Reflux of contrast into the IVC and hepatic veins. Gallbladder and bile ducts:Status post cholecystectomy. No biliary ductal dilation. Pancreas: No pancreatic lesion, ductal dilation, or peripancreatic inflammatory change.? Spleen: Normal size. No splenic lesion.? Adrenal Glands: Unremarkable.? Kidneys and Ureters: Symmetric nephrograms. No hydronephrosis. Subcentimeter left upper pole hypodense renal lesion likely a small cyst, too small to characterize. Lymph nodes: No retroperitoneal or mesenteric lymphadenopathy. Gastrointestinal Tract: Mild sigmoid diverticulosis. No evidence of acute diverticulitis. No dilated bowel loops. No bowel wall thickening. Peritoneum: No ascites or intra-abdominal free air. Abdominal wall: Small fat-containing umbilical hernia. Small fat-containing bilateral inguinal hernias. Bladder: Unremarkable.? Pelvic Viscera: Unremarkable.? Bones: No acute fracture or suspicious osseous lesion. Mild multilevel degenerative disc disease. CT/CT angio chest aorta IMPRESSION: ? 1. Status post endovascular repair of type B aortic dissection with unchanged dilation of the [place] aneurysm sac measuring 5.1 cm the level of the descending thoracic aorta and 4.2 cm at the suprarenal aorta. 2. Unchanged appearance of the endoleak with contrast opacification of the [place] aneurysm sac extending from T9 distally to the aortic bifurcation. 3. Unchanged celiac origin stenosis with fusiform dilation of the common hepatic artery and focal dissection. 4. No other acute process identified. ECG Data ECG #1: Attestation: I personally reviewed and interpreted this ECG as follows: ECG interpretation date: 05/04/22 ECG interpretation time: 11:17 Interpretation: EKG normal sinus rhythm with ventricular rate of 65 with T-wave inversions in leads V1 V2/ V3 with Q-wave noted in lead 3 and a VS. The T-wave inversions are similar compared to prior EKG although the Q-waves appear new. Otherwise no other acute processes are noted not consistent with a STEMI at this time/no ischemic changes. Critical Care Time Critical Care Time Critical Care Time: Yes Total Critical Care Time: 60 Attestation: I personally attest to this time spent taking care of the patient Discharge Plan Discharge Clinical Impression: H/O repair of dissecting aneurysm of descending thoracic aorta, Chest pain, Breath shortness, Abnormal CT scan Patient Disposition: [facility] Transfer Details: Dr. Frost Vascular Surgeon [facility] [place] Prescriptions: No Action sucralfate [Carafate] 100 mg/mL suspension 10 ml PO BID Qty: 1000 1RF atorvastatin 40 mg Tablet 40 mg PO BEDTIME carvedilol [Coreg] 25 mg Tablet 25 mg PO BID lisinopril 40 mg Tablet 40 mg PO DAILY cyclobenzaprine 5 mg tablet 5 mg PO TID PRN (Reason: muscle spasm) Qty: 7 0RF Movantik 12.5 mg tablet 12.5 mg PO QAM Qty: 30 1RF Rx Instructions: must be taken on empty stomach; no food 1 hr after or 2-3 hrs before dose pantoprazole 40 mg tablet,delayed release (DR/EC) 40 mg PO BID Qty: 90 3RF budesonide-formoterol [Symbicort] 80-4.5 mcg/actuation HFA aerosol inhaler inhalation trazodone 50 mg tablet 50 mg PO BEDTIME aspirin [Adult Aspirin Regimen] 81 mg tablet,delayed release (DR/EC) 81 mg PO DAILY duloxetine 60 mg capsule,delayed release(DR/EC) 60 mg PO DAILY
[2022-05-04 12:20] LABS: Alanine Aminotransferase 25 U/L (0-40); Albumin Level 3.9 g/dL (3.5-5.0); Alkaline Phosphatase 98 U/L (39-117); Anion Gap 13 (12-20); Aspartate Amino Transferase 16 U/L (5-37); Bilirubin Direct < 0.2 mg/dL (0.0-0.5); Bilirubin Total 0.3 mg/dL (0.0-1.0); Blood Urea Nitrogen 9 mg/dL (9-16); Carbon Dioxide 25 mmol/L (22-29); Chloride 105 mmol/L (96-108); Creatinine Clr Calc Pharmacy 146.2; Estimated Glomerular Filt Rate > 60; Glucose Random 150 mg/dL (60-115); Magnesium 1.6 mg/dL (1.6-2.6); Potassium 3.9 mmol/L (3.3-5.1); Sodium 139 mmol/L (135-145); Total Protein 6.7 g/dL (6.5-8.0)
[2022-05-04 12:23] LABS: COVID-19 Test Negative (Negative)
[2022-05-04] MEDS: iohexoL 350 MG/ML 100 ML INFUS..BTL IV (13:33)
[2022-05-04] MEDS: Famotidine/PF 20 MG/2 ML VIAL IVPUSH (15:01)
[2022-05-04 15:03] VITALS: RESP 16
--- NOTE | 2022-05-04 15:59 | PC.NURSE ---
call placed to [facility] tx line per request of Xena Watts PA-C--looking for vascular tx-they are closed but [facility]
[2022-05-04 19:04] VITALS: BP 134/75; PULSE 73; RESP 18; O2SAT 96
== END 2022-05-04 19:53 | disposition short-term general hospital (02) ==
PROVIDERS: Physician Assistant Medical; Emergency Provider Emergency Medicine Emergency Medical Services; PCP Internal Medicine
DX: R07.9 Chest pain, unspecified (principal); R06.02 Shortness of breath; I10 Essential (primary) hypertension; E78.00 Pure hypercholesterolemia, unspecified; R60.0 Localized edema; E66.9 Obesity, unspecified; Z68.41 Body mass index [BMI] 40.0-44.9, adult; Z20.822 Contact with and (suspected) exposure to COVID-19; R93.89 Abnormal findings on diagnostic imaging of other specified body structures; I71.2 Thoracic aortic aneurysm, without rupture
CPT/HCPCS: 36415; 71046; 71275; 74174; 80048; 80076; 83605; 83735; 84484; 85025; 85379; 85610; 87635; 93005; 93970; 96374; 96375; 96376; 99284; 99285; J2270; J2405; Q9967

== ENCOUNTER → 2022-06-10 09:26 | Outpatient (BNVA) | payer MEDICAID, SELFPAY | PROVIDERS: PCP Internal Medicine; Visit Provider Internal Medicine Gastroenterology | DX: R10.11 Right upper quadrant pain (principal) | CPT/HCPCS: 99212 ==

== ENCOUNTER 2022-06-15 13:37 | Day surgery (SDC) | payer MEDICAID, SELFPAY ==
[2022-05-20 15:28] VITALS: BMI 42.3
--- NOTE | 2022-05-23 13:40 | HO.ANESPROP2 ---
HPI - Anesthesia Eval Consult details Narrative: 57yo M for Upper Endoscopy [facility] Active Problems Active Problems: All Active Problems (Updated 05/20/22 @ 15:22 by Emma Faulkner RN) Varicose veins of right lower extremity with inflammation (Acute) Giardia (Acute) Chest discomfort (Acute) Shortness of breath (Acute) Therapeutic opioid-induced constipation (OIC) (Acute) Dysphagia (Acute) Peripheral vascular disease (Acute) Morbid obesity (Acute) Sacroiliac joint dysfunction of right side (Acute) Sacroiliitis (Acute) Esophagitis (Acute) Ascending aortic aneurysm (Acute) Descending thoracic aortic dissection (Acute) HTN (hypertension) (Acute) Hypercholesteremia (Acute) Past Medical History Medical History (Updated 05/20/22 @ 15:22 by Emma Faulkner RN) Anemia Anxiety Ascending aortic aneurysm Back pain Constipation Descending thoracic aortic dissection Esophagitis Fatty liver GERD (gastroesophageal reflux disease) HTN (hypertension) Hx of lipoma Hypercholesteremia Leg edema Morbid obesity VALERY (obstructive sleep apnea) Peptic ulcer disease Peripheral vascular disease Pulmonary hypertension Sacroiliac joint dysfunction of right side Sacroiliac joint pain Sacroiliitis Sacroiliitis SOB (shortness of breath) Family History Family History Father Depression Suicide Mother Diabetes Dementia Heart problem Sister Dementia, Onset Age: 73 Sister No problems noted. Brother No problems noted. Family/Other No problems noted. Surgical History Surgical History (Updated 05/20/22 @ 15:12 by Emma Faulkner RN) History of arthroscopy of both knees History of carpal tunnel release of both wrists History of esophagogastroduodenoscopy (EGD) Hx of cholecystectomy Hx of colonoscopy Hx of repair of dissecting thoracic aortic aneurysm, [place] type B Social History Social History Alcohol intake: former Patient Tobacco Use Status: Former Tobacco user Quit Date: 2019 Years Smoked: 30 +/- Advance Directives: No Advance Directives Information Provided: No Meds Allergies Allergy/AdvReac Type Severity Reaction Status Date / Time baclofen [BACLOFEN] Allergy Intermediate RASH Verified 12/20/21 08:22 Home Medications Medication Instructions Recorded Confirmed Last Taken Type atorvastatin 40 mg tablet 40 mg PO BEDTIME 05/27/20 05/20/22 Unknown History carvedilol 25 mg tablet (Coreg) 25 mg PO BID 05/27/20 05/20/22 06/03/20 07:00 History lisinopril 40 mg tablet 40 mg PO DAILY 05/27/20 05/20/22 Unknown History aspirin 81 mg tablet,delayed 81 mg PO DAILY 08/31/21 05/20/22 Unknown History release (Adult Aspirin Regimen) budesonide-formoterol HFA 80 2 inh inhalation BID 08/31/21 05/20/22 Unknown History mcg-4.5 mcg/actuation aerosol inhaler (Symbicort) trazodone 50 mg tablet 50 mg PO BEDTIME 08/31/21 05/20/22 Unknown History duloxetine 60 mg capsule,delayed 60 mg PO DAILY 12/20/21 05/20/22 Unknown History release Exam Exam Date and Time: May 23, 2022 1340 Height,Weight and Vital Signs: Height 5 ft 10 in Weight 133.81 kg
--- NOTE | 2022-06-14 10:59 | HO.ANESPROP2 ---
Documented by User: Natividad Acharya NP 06/14/22 11:04 HPI - Anesthesia Eval Consult details Narrative: 57yo M for Upper Endoscopy s/p repair of thoracic aortic aneurysm dissection 2020 [facility] Active Problems Active Problems: All Active Problems (Updated 06/10/22 @ 10:15 by Beto Lopez MD) RUQ pain (Acute) Varicose veins of right lower extremity with inflammation (Acute) Giardia (Acute) Chest discomfort (Acute) Shortness of breath (Acute) Therapeutic opioid-induced constipation (OIC) (Acute) Dysphagia (Acute) Peripheral vascular disease (Acute) Morbid obesity (Acute) Sacroiliac joint dysfunction of right side (Acute) Sacroiliitis (Acute) Esophagitis (Acute) Ascending aortic aneurysm (Acute) Descending thoracic aortic dissection (Acute) HTN (hypertension) (Acute) Hypercholesteremia (Acute) Past Medical History Medical History Anemia Anxiety Ascending aortic aneurysm Back pain Constipation Descending thoracic aortic dissection Esophagitis Fatty liver GERD (gastroesophageal reflux disease) HTN (hypertension) Hx of lipoma Hypercholesteremia Leg edema Morbid obesity VALERY (obstructive sleep apnea) Peptic ulcer disease Peripheral vascular disease Pulmonary hypertension Sacroiliac joint dysfunction of right side Sacroiliac joint pain Sacroiliitis Sacroiliitis SOB (shortness of breath) Family History Family History Father Depression Suicide Mother Diabetes Dementia Heart problem Sister Dementia, Onset Age: 73 Sister No problems noted. Brother No problems noted. Family/Other No problems noted. Surgical History Surgical History History of arthroscopy of both knees History of carpal tunnel release of both wrists History of esophagogastroduodenoscopy (EGD) Hx of cholecystectomy Hx of colonoscopy Hx of repair of dissecting thoracic aortic aneurysm, [place] type B Social History Social History Alcohol intake: former Patient Tobacco Use Status: Former Tobacco user Quit Date: 2 years ago Years Smoked: 30 +/- Use of substances other than those prescribed or required for medical reasons: No Are you DNR?: No Advance Directives: No Advance Directives Information Provided: Yes Meds Allergies Allergy/AdvReac Type Severity Reaction Status Date / Time baclofen [BACLOFEN] Allergy Intermediate RASH Verified 06/10/22 09:42 Home Medications Medication Instructions Recorded Confirmed Last Taken Type atorvastatin 40 mg tablet 40 mg PO BEDTIME 05/27/20 05/20/22 Unknown History carvedilol 25 mg tablet (Coreg) 25 mg PO BID 05/27/20 05/20/22 06/03/20 07:00 History lisinopril 40 mg tablet 40 mg PO DAILY 05/27/20 05/20/22 Unknown History aspirin 81 mg tablet,delayed 81 mg PO DAILY 08/31/21 05/20/22 Unknown History release (Adult Aspirin Regimen) budesonide-formoterol HFA 80 2 inh inhalation BID 08/31/21 05/20/22 Unknown History mcg-4.5 mcg/actuation aerosol inhaler (Symbicort) duloxetine 60 mg capsule,delayed 60 mg PO DAILY 12/20/21 05/20/22 Unknown History release amlodipine 10 mg tablet 10 mg PO DAILY 06/10/22 Unknown History Exam Exam Date and Time: June 14, 2022 1059 Height,Weight and Vital Signs: Height 5 ft 10 in Weight 133.81 kg Pertinent Lab Results Pertinent Lab Results: Laboratory Tests 05/04/22 05/04/22 11:41 11:41 WBC 8.1 Hgb 13.2 L Hct 38.8 L Plt Count 242 Sodium 139 Potassium 3.9 Chloride 105 Carbon Dioxide 25 BUN 9 Creatinine 0.76 Narrative Narrative: CT angio chest aorta 04/2022 IMPRESSION: ? 1. Status post endovascular repair of type B aortic dissection with unchanged dilation of the [place] aneurysm sac measuring 5.1 cm the level of the descending thoracic aorta and 4.2 cm at the suprarenal aorta. 2. Unchanged appearance of the endoleak with contrast opacification of the [place] aneurysm sac extending from T9 distally to the aortic bifurcation. 3. Unchanged celiac origin stenosis with fusiform dilation of the common hepatic artery and focal dissection. 4. No other acute process identified. EKG 04/2022 Vent. Rate : 065 BPM ? ? Atrial Rate : 065 BPM ?? P-R Int : 192 ms? QRS Dur : 090 ms ? ? QT Int : 420 ms ? ? ? P-R-T Axes : 042 008 042 degrees ?? QTc Int : 436 ms ? Normal sinus rhythm Cannot rule out Inferior infarct , age undetermined T wave abnormality, consider anterior ischemia Abnormal ECG When compared with ECG of 10-NOV-2021 18:15, No significant change was found ECHO 2021 Conclusions: - The left ventricular systolic function is normal.? The ? calculated ejection fraction is 64% by biplane method. ? - There is moderate dilatation of the ascending aorta measuring? 4.60 cm. ? - There is mild aortic valve regurgitation.?? Nuc Stress 2020 [place] gary perf SPECT rest & str Impression: ? 1.? Myocardial perfusion imaging study shows normal myocardial perfusion 2.? Gated LVEF is 65% 3. Transient ischemic dilatation not present ? EKG is nondiagnostic for ischemia ? Documented by User: Cortney Reynolds MD 06/15/22 14:12 [facility] Past Medical History Medical History Anemia Anxiety Ascending aortic aneurysm Back pain Constipation Descending thoracic aortic dissection Esophagitis Fatty liver GERD (gastroesophageal reflux disease) HTN (hypertension) Hx of lipoma Hypercholesteremia Leg edema Morbid obesity VALERY (obstructive sleep apnea) Peptic ulcer disease Peripheral vascular disease Pulmonary hypertension Sacroiliac joint dysfunction of right side Sacroiliac joint pain Sacroiliitis Sacroiliitis SOB (shortness of breath) Functional capacity: independent ambulation Family History Family History Father Depression Suicide Mother Diabetes Dementia Heart problem Sister Dementia, Onset Age: 73 Sister No problems noted. Brother No problems noted. Family/Other No problems noted. Family history of problems with anesthesia: No Surgical History Surgical History History of arthroscopy of both knees History of carpal tunnel release of both wrists History of esophagogastroduodenoscopy (EGD) Hx of cholecystectomy Hx of colonoscopy Hx of repair of dissecting thoracic aortic aneurysm, [place] type B History of Problems with Anesthesia: No Social History Social History Alcohol intake: former Patient Tobacco Use Status: Former Tobacco user Quit Date: 2 years ago Years Smoked: 30 +/- Use of substances other than those prescribed or required for medical reasons: No Are you DNR?: No Advance Directives: No Advance Directives Information Provided: Yes Meds Allergies Allergy/AdvReac Type Severity Reaction Status Date / Time baclofen [BACLOFEN] Allergy Intermediate RASH Verified 06/10/22 09:42 Home Medications Medication Instructions Recorded Confirmed Last Taken Type atorvastatin 40 mg tablet 40 mg PO BEDTIME 05/27/20 05/20/22 Unknown History carvedilol 25 mg tablet (Coreg) 25 mg PO BID 05/27/20 05/20/22 06/03/20 07:00 History lisinopril 40 mg tablet 40 mg PO DAILY 05/27/20 05/20/22 Unknown History aspirin 81 mg tablet,delayed 81 mg PO DAILY 08/31/21 05/20/22 Unknown History release (Adult Aspirin Regimen) budesonide-formoterol HFA 80 2 inh inhalation BID 08/31/21 05/20/22 Unknown History mcg-4.5 mcg/actuation aerosol inhaler (Symbicort) duloxetine 60 mg capsule,delayed 60 mg PO DAILY 12/20/21 05/20/22 Unknown History release amlodipine 10 mg tablet 10 mg PO DAILY 06/10/22 Unknown History Assessment and Plan Final Anesthetic Review Family History of Problems with Anesthesia: No History of Problems with Anesthesia: No
[2022-06-15 14:00] VITALS: BMI 39.4
[2022-06-15 14:03] VITALS: BP 134/72; PULSE 73; RESP 20; TEMP 36.2; O2SAT 95
--- NOTE | 2022-06-15 14:17 | MHC.SHP ---
Pre-Procedural Eval Section A Date of Service: 06/15/22 The patient is an INPATIENT: No The History & Physical has been completed within 30 days and I have reviewed it.: Yes Section B Chief Complaint: Dysphagia,Esophagitis, Allergies: Allergies Allergy/AdvReac Type Severity Reaction Status Date / Time baclofen [BACLOFEN] Allergy Intermediate RASH Verified 06/10/22 09:42 Plan Diagnosis/Plan: Unchanged I have reviewed the history and physical and performed a pertinent physical examination on my patient. No changes have occurred unless specified. egd and dilation
--- NOTE | 2022-06-15 14:20 | P.OP_ITS ---
Operative Note Operative Note Date of Service: 06/15/22 Narrative: Procedure Description: EGD Indication: [] Anesthesia: MAC FLEXIBLE TRANSORAL UPPER GASTROINTESTINAL ENDOSCOPY UPPER ENDOSCOPY Consent: Indications for the procedure and potential complications of bleeding, perforation, reaction to medications and missed diagnosis were discussed with the patient and informed consent was obtained. Instrument: Olympus GIF H 190 J mid size upper endoscope Monitoring: Vital signs and clinical assessment, continuous EKG monitoring, Pulse oximetry, Carbon Dioxide monitoring and blood pressure monitoring were done throughout the procedure. Procedure: The patient was placed in the left lateral decubitis position and pre-procedure medications were administered and a bite block was placed. The endoscope was inserted into the mouth and advanced under direct vision to the third part of duodenum. A careful inspection was made as the upper endoscope was withdrawn including a retroflexed examination of the proximal stomach; Findings and interventions are described below. Findings: Larynx:normal Esophagus: GE junction at 43 cm, diaphragm hiatus at 43 cm, mild esophagitis and irregular z line with islands of salmon pink tissue, bx taken as well as from distal esophagus. Balloon dialtion done to 19 mm at UES and LES, no tears seen Stomach: Patchy gastric erythema with erosions noted in antrum. Biopsies were ob tained. Grade 2 flap valve on retroflexed examination of the cardia. Duodenum: Normal bulb and descending duodenum, bx taken Intervention: Biopsies as noted above, balloon dilation Impression/Findings: erosive gastritis esophagitis possible barretts PLAN: if barretts pos then repeat EGD in 3-5 yrs check if taking PPI if h pylori pos then treat
[2022-06-15] MEDS: Lactated Ringers 1,000 ML 100 ML IVCONT (14:31)
[2022-06-15 15:15] VITALS: BP 109/66; PULSE 73; RESP 16; TEMP 36.6; O2SAT 95
--- NOTE | 2022-06-15 15:17 | HO.POSTANES ---
Post Anesthesia Evaluation Post Anesthesia Evaluation Vital Signs: Vital Signs Temp Pulse Resp BP Pulse Ox O2 Del Method 06/15/22 14:03 97.2 F 73 20 134/72 95 Room Air Anesthesia: Monitored Mental Status: Awake Pain Control: Satisfactory Nausea/Vomiting: None Hydration: Adequate Anesthesia-Related Issues: No Anes. Related Issues
--- NOTE | 2022-06-15 15:20 | HO.POSTANES ---
Post Anesthesia Evaluation Post Anesthesia Evaluation Vital Signs: Vital Signs Temp Pulse Resp BP Pulse Ox O2 Del Method O2 Flow Rate 06/15/22 15:15 97.8 F 73 16 109/66 95 Simple Mask 5 06/15/22 14:03 97.2 F 73 20 134/72 95 Room Air Anesthesia: Monitored Mental Status: Awake Nausea/Vomiting: None Hydration: Adequate Anesthesia-Related Issues: No Anes. Related Issues
[2022-06-15 15:30] VITALS: BP 126/66; PULSE 67; RESP 16; TEMP 36.7; O2SAT 95
[2022-06-15 15:45] VITALS: BP 129/74; PULSE 65; RESP 16; TEMP 36.8; O2SAT 93
== END 2022-06-15 15:59 | disposition home or self-care (01) ==
PROVIDERS: PCP Internal Medicine; Visit Provider Internal Medicine Gastroenterology
PROC: 0DJ08ZZ Inspection of Upper Intestinal Tract, Via Natural or Artificial Opening Endoscopic (ICD-10-PCS; CPT 43235; principal; 2022-06-15 15:40)
DX: R13.10 Dysphagia, unspecified (principal); K20.80 Other esophagitis without bleeding; K29.60 Other gastritis without bleeding; K44.9 Diaphragmatic hernia without obstruction or gangrene; K27.9 Peptic ulcer, site unspecified, unspecified as acute or chronic, without hemorrhage or perforation; K59.00 Constipation, unspecified; K76.0 Fatty (change of) liver, not elsewhere classified; I10 Essential (primary) hypertension; I71.21 Aneurysm of the ascending aorta, without rupture; I27.20 Pulmonary hypertension, unspecified; I73.9 Peripheral vascular disease, unspecified; D64.9 Anemia, unspecified; E78.00 Pure hypercholesterolemia, unspecified; E66.01 Morbid (severe) obesity due to excess calories; Z68.41 Body mass index [BMI] 40.0-44.9, adult; G47.33 Obstructive sleep apnea (adult) (pediatric); Z79.51 Long term (current) use of inhaled steroids; Z79.82 Long term (current) use of aspirin; Z79.899 Other long term (current) drug therapy; Z99.89 Dependence on other enabling machines and devices; Z88.8 Allergy status to other drugs, medicaments and biological substances; Z87.891 Personal history of nicotine dependence
CPT/HCPCS: 43249; 43239; 88305; 88342; C1726

== ENCOUNTER 2022-07-15 11:11 | Outpatient (REF) | payer MEDICAID, SELFPAY ==
--- NOTE | ~2022-07-15 | US_ITS ---
EXAMINATION: US ABDOMEN COMPLETE CLINICAL INFORMATION: Right upper quadrant pain. COMPARISON: CTA abdomen and pelvis 05/04/2022. Ultrasound abdomen with elastography 08/12/2019. TECHNIQUE: Real-time imaging of the abdominal viscera. Technically difficult study secondary to bowel gas and body habitus. FINDINGS: PANCREAS: Largely obscured by overlapping bowel gas. ABDOMINAL AORTA: An endovascular stent is noted. The [place] distal aorta appears aneurysmal, measuring 4.3 cm. INFERIOR VENA CAVA: Visualized portions are normal. LIVER: The liver is normal in size. The liver contour is normal. There is diffuse increased liver parenchymal echogenicity, with pericholecystic sparing. No focal hepatic lesion. GALLBLADDER: Surgically absent. COMMON BILE DUCT: Normal in caliber postcholecystectomy, measuring 1.0 cm in diameter. Of note, the common bile duct caliber on 08/12/2019 was 0.8 cm. RIGHT KIDNEY: Normal. No hydronephrosis. No renal calculi or focal parenchymal lesions. The kidney measures 12.3 cm in maximum dimension. LEFT KIDNEY: Normal. No hydronephrosis. No renal calculi or focal parenchymal lesions. The kidney measures 11.8 cm in maximum dimension. SPLEEN: Normal. The spleen measures 9.8 cm in maximum dimension. FREE FLUID: None. US/US abdomen complete IMPRESSION: 1. There is generalized increase in hepatic echotexture, consistent with fatty infiltration or hepatocellular disease. Please correlate clinically. Characteristic pericholecystic sparing favors fatty infiltration. No focal hepatic mass or intrahepatic biliary dilatation is seen. 2. The gallbladder is surgically absent. The common bile duct shows stable ectasia. 3. Technically limited ultrasound examination, in particular of the pancreas.
== END 2022-07-15 11:12 | disposition home or self-care (01) ==
LOC: HO.US 11:11
PROVIDERS: Visit Provider Internal Medicine Gastroenterology
DX: R10.11 Right upper quadrant pain (principal)
CPT/HCPCS: 76700

== ENCOUNTER → 2022-07-19 13:47 | Outpatient (BNVA) | payer MEDICAID, SELFPAY | PROVIDERS: PCP Internal Medicine; Visit Provider Nurse Practitioner Family | DX: M53.3 Sacrococcygeal disorders, not elsewhere classified (principal); M47.816 Spondylosis without myelopathy or radiculopathy, lumbar region; G58.8 Other specified mononeuropathies; R10.11 Right upper quadrant pain; E66.01 Morbid (severe) obesity due to excess calories; Z68.41 Body mass index [BMI] 40.0-44.9, adult; Z79.891 Long term (current) use of opiate analgesic; Z79.899 Other long term (current) drug therapy | CPT/HCPCS: 99202 ==

== ENCOUNTER → 2022-08-12 08:56 | Outpatient (BNVA) | payer MEDICAID, SELFPAY | PROVIDERS: PCP Internal Medicine; Visit Provider Internal Medicine Gastroenterology | DX: K20.90 Esophagitis, unspecified without bleeding (principal); R13.10 Dysphagia, unspecified; K29.60 Other gastritis without bleeding; K76.0 Fatty (change of) liver, not elsewhere classified; R10.11 Right upper quadrant pain; Z98.890 Other specified postprocedural states | CPT/HCPCS: 99212 ==

== ENCOUNTER 2022-08-24 06:06 | Outpatient (REF) | payer MEDICAID, SELFPAY | END 2022-08-24 06:07 | disposition home or self-care (01) | LOC: CF 06:06 | PROVIDERS: Visit Provider Internal Medicine | DX: G58.8 Other specified mononeuropathies (principal); R10.11 Right upper quadrant pain | CPT/HCPCS: 64450; J2795; J3301 ==

== ENCOUNTER → 2022-09-27 09:48 | Outpatient (BNVA) | payer MEDICAID, SELFPAY | PROVIDERS: PCP Internal Medicine; Visit Provider Nurse Practitioner Family | DX: M47.816 Spondylosis without myelopathy or radiculopathy, lumbar region (principal); M53.3 Sacrococcygeal disorders, not elsewhere classified; M54.16 Radiculopathy, lumbar region; E66.01 Morbid (severe) obesity due to excess calories; Z68.41 Body mass index [BMI] 40.0-44.9, adult | CPT/HCPCS: 99212 ==

== ENCOUNTER 2022-10-18 19:22 | Outpatient (REF) | payer MEDICAID, SELFPAY ==
--- NOTE | ~2022-10-18 | MR_ITS ---
MR LUMBAR SPINE WITHOUT CONTRAST CLINICAL INFORMATION: Lumbar region spondylosis. COMPARISON: None available. TECHNIQUE: MRI of the lumbar spine was obtained using routine sequences without contrast. FINDINGS: There are 5 nonrib-bearing lumbar-type vertebral bodies. Lumbar alignment is normal. There is no bone marrow edema. There are no acute fractures. Vertebral body heights are maintained. There is mild disc volume loss and there is disc desiccation at the L1-L2, L2-L3, and L3-L4 levels. The remaining disc lines are preserved and the remaining disc remain well-hydrated. Conus terminates at the T12-L1 level. There is artifact from a known aortic stent graft and abdominal aortic pathology is better appreciated on prior CT exams. Please see those reports for further details. L1-L2: Far left lateral disc osteophyte protrusion approaches without definitely contacting the extraforaminal left L1 nerve root. No central canal stenosis and no foraminal stenosis. L2-L3: Small annular disc bulge and mild bilateral hypertrophic facet arthropathy. No central canal stenosis and no foraminal stenosis. L3-L4: There is a diffuse annular disc bulge and there is moderate bilateral hypertrophic facet arthropathy and ligamentum flavum thickening. No central canal stenosis there is mild foraminal encroachment bilaterally. L4-L5: There is a diffuse annular disc bulge and there is moderate bilateral hypertrophic facet arthropathy. No central canal stenosis. Mild foraminal encroachment bilaterally. L5-S1: Diffuse annular disc bulge and moderate bilateral hypertrophic facet arthropathy. No central canal stenosis. Mild bilateral foraminal encroachment. MR/MR lumbar spine wo con IMPRESSION: Mild to moderate lumbar spondylosis. No severe central canal stenosis and no severe foraminal stenosis within the lumbar spine.
== END 2022-10-18 19:23 | disposition home or self-care (01) ==
LOC: HO.MRI 19:22
PROVIDERS: PCP Internal Medicine; Visit Provider Nurse Practitioner Family
DX: M47.816 Spondylosis without myelopathy or radiculopathy, lumbar region (principal); M54.16 Radiculopathy, lumbar region; M53.3 Sacrococcygeal disorders, not elsewhere classified
CPT/HCPCS: 72148

== ENCOUNTER → 2022-10-21 13:30 | Outpatient (BNVA) | payer MEDICAID, SELFPAY | PROVIDERS: PCP Internal Medicine; Visit Provider Nurse Practitioner Family | DX: Z13.89 Encounter for screening for other disorder (principal) ==

== ENCOUNTER 2022-10-24 08:35 | Outpatient (REF) | payer MEDICAID, SELFPAY ==
[2022-10-24 09:49] LABS: Estimated Average Glucose 137 mg/dL; Hemoglobin A1c % 6.4 %
== END 2022-10-24 08:36 | disposition home or self-care (01) ==
LOC: HO.LAB 08:35
PROVIDERS: PCP Internal Medicine; Visit Provider Nurse Practitioner Family
DX: Z01.818 Encounter for other preprocedural examination (principal); E66.01 Morbid (severe) obesity due to excess calories
CPT/HCPCS: 36415; 83036

== ENCOUNTER 2022-12-21 05:59 | Outpatient (REF) | payer MEDICAID, SELFPAY ==
--- NOTE | ~2022-12-21 | FL_ITS ---
EXAMINATION: XR FLUOROSCOPY WITH IMAGES CLINICAL INFORMATION: M47.816 - Spondylosis without myelopathy or radiculopathy, lumbar region COMPARISON: Lumbar MR 20 09/16/2022 TECHNIQUE: Fluoroscopy Supervised By: Dr. West Doyle. Fluoroscopy Time: 0.3 minutes. Cumulative Dose: 11.2 mGy. DAP: 1.65 Gycm2. Images: 3. FINDINGS: There are spinal needles overlying the bilateral outer L3, L4, and L5 neural foramen. There is contrast seen in the respective nerve sheaths. Some early transforaminal epidural extension is suggested. No visible vascular communication. There are surgical clips versus intravascular stent mid lumbar region. FL/FL guidance in treatment room IMPRESSION: Fluoroscopy for pain management procedures.
== END 2022-12-21 06:00 | disposition home or self-care (01) ==
LOC: CF 05:59
PROVIDERS: Visit Provider Internal Medicine
DX: M47.816 Spondylosis without myelopathy or radiculopathy, lumbar region (principal)
CPT/HCPCS: 64493; 64494

== ENCOUNTER → 2022-12-23 08:46 | Outpatient (BNVA) | payer MEDICAID, SELFPAY | PROVIDERS: PCP Internal Medicine; Visit Provider Nurse Practitioner Family ==

== ENCOUNTER 2022-12-28 05:58 | Outpatient (REF) | payer MEDICAID, SELFPAY ==
--- NOTE | ~2022-12-28 | FL_ITS ---
EXAMINATION: XR FLUOROSCOPY WITH IMAGES CLINICAL INFORMATION: M54.16 - Radiculopathy, lumbar region COMPARISON: MR lumbar spine 10/18/2022, CTA aorta 05/04/2022 TECHNIQUE: Fluoroscopy Supervised By: Dr. West Doyle. Fluoroscopy Time: 0.2 minutes. Cumulative Dose: 7.50 mGy. DAP: 0.99 Gycm2. Images: 2. FINDINGS: There is interlaminar spinal needle seen in the mid lumbar region. Trace epidural contrast demonstrated. No visible vascular communication. There are degenerative changes lumbar spine. Intravascular aorto bi-iliac stent grafts again noted. FL/FL guidance in treatment room IMPRESSION: Fluoroscopy for pain management procedure.
== END 2022-12-28 05:59 | disposition home or self-care (01) ==
LOC: CF 05:58
PROVIDERS: Visit Provider Internal Medicine
DX: M54.16 Radiculopathy, lumbar region (principal)
CPT/HCPCS: 62323; J1040

== ENCOUNTER → 2023-02-10 08:51 | Outpatient (BNVA) | payer MEDICAID, SELFPAY | PROVIDERS: Visit Provider Internal Medicine Gastroenterology | DX: K75.81 Nonalcoholic steatohepatitis (NASH) (principal); K74.60 Unspecified cirrhosis of liver; R10.11 Right upper quadrant pain; R13.10 Dysphagia, unspecified; Z90.49 Acquired absence of other specified parts of digestive tract; Z98.890 Other specified postprocedural states | CPT/HCPCS: 99212 ==

== ENCOUNTER 2023-02-27 12:43 | Outpatient (REF) | payer MEDICAID, SELFPAY | END 2023-02-27 12:44 | disposition home or self-care (01) | LOC: HO.US 12:43 | PROVIDERS: PCP Internal Medicine; Visit Provider Internal Medicine Gastroenterology | DX: Z13.89 Encounter for screening for other disorder (principal) ==

== ENCOUNTER 2023-03-10 10:24 | Outpatient (REF) | payer MEDICAID, SELFPAY ==
--- NOTE | ~2023-03-10 | US_ITS ---
EXAMINATION: US ABDOMEN LIMITED WITH LIVER ELASTOGRAPHY CLINICAL INFORMATION: Nonalcoholic steatohepatitis. COMPARISON: Abdominal ultrasound dated 07/15/2022. TECHNIQUE: Real-time imaging of the abdominal viscera. Noninvasive ultrasound liver fibrosis assessment is performed using Farhad ElastPQ point quantification shear wave elastography (2D-SWE) with a C5-2 MHz transducer. Multiple elastography samples are obtained. FINDINGS: PANCREAS: Limited. The visualized pancreatic head and body are normal in appearance. The remainder of the pancreas is obscured from visualization by the overlying bowel gas. LIVER: The liver demonstrates normal contour and increased echogenicity. No focal lesion or intrahepatic biliary duct dilatation. The right lobe measures 19.4 cm in length. The left lobe measures 12.5 cm in length. Portal flow is towards the liver (hepatopetal). Shear wave liver elastography median stiffness is 1.49 m/s (reference: normal median stiffness is 1.3 m/s or less). IQR/median stiffness to assess sampling precision is 0.26 (reference: good quality data set is IQR/median stiffness of 0.15 or less). GALLBLADDER: Surgically absent. COMMON BILE DUCT: Normal in caliber post-cholecystectomy, measuring 0.8 cm in diameter. RIGHT KIDNEY: Normal. No hydronephrosis. No renal calculi or focal parenchymal lesions. The kidney measures 12.4 cm in maximum dimension. FREE FLUID: None. US/US abdomen schroeder w elastography IMPRESSION: 1. There is generalized increase in hepatic echotexture, consistent with fatty infiltration or hepatocellular disease. Please correlate clinically. No focal hepatic mass or intrahepatic biliary dilatation is seen. 2. Liver elastography: Although measurements appear to rule out compensated advanced chronic liver disease, there is statistical variability of the sampling which decreases accuracy. 3. There is hepatomegaly. 4. The gallbladder surgically absent. 5. Technically limited ultrasound examination of the pancreatic tail. REFERENCE: Society of Radiologists in Ultrasound Liver Stiffness Thresholds (2020): LIVER STIFFNESS THRESHOLDS: *Liver Stiffness equal or less than 1.3 m/s: High probability of being normal. *Liver Stiffness less than 1.7 m/s: In the absence of other known clinical signs, rules out compensated advanced chronic liver disease. *Liver Stiffness 1.7-2.1 m/s: Suggestive of compensated advanced chronic liver disease but need further test for confirmation. *Liver Stiffness over 2.1 m/s: Rules in compensated advanced chronic liver disease. *Liver Stiffness over 2.4 m/s: Suggestive of clinically significant portal hypertension. QUALITY OF DATA SET: *IQR/Median value equal or less than 0.15 implies a quality data set. *IQR/Median value over 0.15 implies a poor quality data set. SIGNIFICANT CHANGE FROM PRIOR EXAM: Significant change if liver stiffness measurement is 10% or greater from prior exam. OTHER CONSIDERATIONS: The stage of liver fibrosis may be overestimated in the setting of acute hepatitis, liver inflammation, elevated liver function tests, hepatic vascular congestion, obstructive cholestasis, non-fasting state, and infiltrative diseases such as amyloidosis and lymphoma. In some patients with NAFLD, the liver stiffness thresholds for compensated advanced chronic liver disease may be lower. In causes other than viral hepatitis and NAFLD, liver stiffness thresholds are not well established.
== END 2023-03-10 10:25 | disposition home or self-care (01) ==
LOC: HO.US 10:24
PROVIDERS: PCP Internal Medicine; Visit Provider Internal Medicine Gastroenterology
DX: R13.10 Dysphagia, unspecified (principal); R10.11 Right upper quadrant pain; K75.81 Nonalcoholic steatohepatitis (NASH); K74.60 Unspecified cirrhosis of liver
CPT/HCPCS: 76705; 76981

== ENCOUNTER 2023-03-17 12:14 | Outpatient (REF) | payer MEDICAID, SELFPAY ==
--- NOTE | ~2023-03-17 | US_ITS ---
EXAMINATION: US RETROPERITONEAL COMPLETE (RENAL) CLINICAL INFORMATION: Back pain radiating to groin. Urinary frequency. COMPARISON: Ultrasound abdomen limited 03/10/2023. Ultrasound abdomen complete 07/15/2022. CT abdomen and pelvis 11/10/2021. TECHNIQUE: Real-time imaging of the kidneys and bladder. Limited visualization due to bowel gas. FINDINGS: RIGHT KIDNEY: 12.0 x 6.7 x 6.4 cm (SAG x AP x TRV). No hydronephrosis. No renal calculi. Renal cortical thickness is normal. LEFT KIDNEY: 11.7 x 5.8 x 5.9 cm (SAG x AP x TRV). No hydronephrosis. No renal calculi. Renal cortical thickness is normal. BLADDER: Partially distended. Left ureteral jet is demonstrated; right is not. Prevoid bladder volume is 165 mL. Postvoid bladder volume is 1.5 mL. Prostate gland could not be visualized as region is not visualized due to shadowing from pubic bone. US/US retroperitoneal comp IMPRESSION: 1. No hydronephrosis. No renal calculi. Renal cortical thickness is normal. 2. Postvoid bladder volume is 1.5 mL. 3. Prostate gland could not be visualized as region is not visualized due to shadowing from pubic bone.
== END 2023-03-17 12:15 | disposition home or self-care (01) ==
LOC: HO.US 12:14
PROVIDERS: PCP Internal Medicine; Visit Provider Internal Medicine
DX: M54.9 Dorsalgia, unspecified (principal); R35.0 Frequency of micturition
CPT/HCPCS: 76770

== ENCOUNTER 2023-03-22 07:00 | Day surgery (SDC) | payer MEDICAID, SELFPAY ==
--- NOTE | ~2023-03-22 | FL_ITS ---
EXAMINATION: XR FLUOROSCOPY WITH IMAGES CLINICAL INFORMATION: Right L5 SPRINT. COMPARISON: None available. TECHNIQUE: Fluoroscopy Supervised By: Dr. West Doyle. Fluoroscopy Time: 0.1 minute. Cumulative Dose: 5.83 mGy. DAP: 0.0674 Gycm2. Images: 3. FINDINGS: Electrodes seen inferior to the right L4 pedicle. Visualized bones are grossly unremarkable. Incidental note is made of aortic iliac stent graft. FL/FL guidance in OR IMPRESSION: Fluoroscopy guidance was provided to referring physician for pain management.
[2023-03-22 06:11] VITALS: BMI 40.2
[2023-03-22 07:14] VITALS: BP 164/74; PULSE 68; RESP 19; TEMP 36.6; O2SAT 96
--- NOTE | 2023-03-22 08:27 | MHC.SHP ---
Pre-Procedural Eval Section A Date of Service: 03/22/23 The patient is an INPATIENT: No Changes since office visit: Yes Patient answered all questions The History & Physical has been completed within 30 days and I have reviewed it.: No Section B Chief Complaint: Spondylosis without myelopathy or radiculopathy Relevant Family History (Specify if Yes): Yes Relevant Social History: None Present Medications: see Short Stay Collaborative assessment Medical History: No relevant PMH History of Previous Operations: No relevant previous surgery Allergies: Allergies Allergy/AdvReac Type Severity Reaction Status Date / Time duloxetine Allergy Severe Nightmare Verified 02/10/23 08:54 baclofen [BACLOFEN] Allergy Intermediate RASH Verified 02/10/23 08:54 Review of Systems Sugical H&P ROS: Negative: Constitution, Cardiovascular and Respiratory Exam Surgical H&P Exam: Normal: HEENT, Normal: Heart and Normal: Lungs Plan Diagnosis/Plan: Unchanged I have reviewed the history and physical and performed a pertinent physical examination on my patient. No changes have occurred unless specified. Proceed with right L3 vs. L4 medial branch PNS placement. Time Spent With Patient Time: Total time managing care of this patient today ____ minutes.
--- NOTE | 2023-03-22 08:27 | PM.OP ---
Brief Operative Note Date of Service: 03/22/23 Pre-op diagnosis: Intractable back pain, lumbar spondylosis Post-op diagnosis: same Procedure: Temporary right L3 medial branch nerve stimulator placement Implants: Sprint temporary PNS system Surgeon: West Doyle MD Anesthesia: local Was an Bridge Repairer used for this Procedure?: No Estimated blood loss (mL): 1 Pathology: none sent Condition: stable Disposition: same day
--- NOTE | 2023-03-22 08:27 | W.PM.OPN ---
Operative Note Operative Note Date of Service: 03/22/23 Narrative: Lumbar Medial Branch Nerve Stimulation Lead Placement, SPR (Sprint) System, Right L3 medial branch ? After the risks, benefits and alternatives were discussed with the patient and informed consent was obtained, patient was placed in the prone position and padded to foster comfort. The skin overlying the lumbosacral spine was prepped and draped in sterile fashion. Fluoroscopy was used to identify the spinous process and lamina in the center of the patient?s region of pain. After identifying and marking the intended target along the course of the medial branch nerve, the skin around the planned entry point and the subcutaneous tissues were injected with lidocaine 1%. An introducer needle and stimulating probe were assembled, inserted and advanced along the intended course of the medial branch nerve as it traverses the lamina medial and inferior to the zygapophyseal joint, taking care to maintain the proper depth of insertion as the introducer is advanced under fluoroscopic guidance. The introducer needle was delivered to a location in proximity to the nerve. During needle placement, a temporary right leg paresthesia was encountered likely secondary to the needle tip being in close proximity to the right L4 nerve root. The needle depth and placement was adjusted until the paresthesia resolved. The needle was then radial a bird in close proximity to the zygapophyseal joint along the intended course of the medial branch nerve. Multiple stimulation parameters were used to deliver stimulation to the target medial branch nerve in concert with stimulating at multiple positions around the nerve. Nerve target acquisition was confirmed noting generation of paresthesias in the paravertebral regions corresponding to the level being stimulated. Various electrical parameter combinations were tested, and the lead location was adjusted (physically relocated) until the patient indicated paresthesia/muscle tension overlapping the distribution of the patient?s typical region of pain. The stimulating probe was removed from the introducer and a percutaneous lead was guided through the needle and delivered to a location in similar proximity to the nerve. Final location was verified with electrical stimulation and documented with fluoroscopy. The introducer needle was removed, and the exposed end of the percutaneous lead was attached to an external stimulator unit. Various electrical parameter combinations were again tested until the patient indicated paresthesia or muscle tension overlapping the distribution of the patient?s typical region of pain. After confirming that lead impedance was in the normal range, the external unit was detached, the needle was removed, and the lead was anchored at the skin. The lead was threaded into the connector block and electrical continuity and desired patient response was confirmed. The connector block was attached to the external stimulator unit. The site was covered with a sterile occlusive dressing. The patient was observed for stability of vital signs and comfort.
[2023-03-22 08:55] VITALS: BP 141/87; PULSE 61; RESP 20; TEMP 37; O2SAT 96
== END 2023-03-22 09:13 | disposition home or self-care (01) ==
PROVIDERS: PCP Internal Medicine; Visit Provider Internal Medicine
PROC: (CPT 64555; principal; 2023-03-22 08:00)
DX: M47.816 Spondylosis without myelopathy or radiculopathy, lumbar region (principal); M53.3 Sacrococcygeal disorders, not elsewhere classified; M46.1 Sacroiliitis, not elsewhere classified; I10 Essential (primary) hypertension; I27.20 Pulmonary hypertension, unspecified; D64.9 Anemia, unspecified; E78.00 Pure hypercholesterolemia, unspecified; G47.33 Obstructive sleep apnea (adult) (pediatric); E66.01 Morbid (severe) obesity due to excess calories; Z68.41 Body mass index [BMI] 40.0-44.9, adult; Z88.8 Allergy status to other drugs, medicaments and biological substances; Z98.890 Other specified postprocedural states; Z87.891 Personal history of nicotine dependence
CPT/HCPCS: 64555; C1778

== ENCOUNTER → 2023-03-22 07:00 | Outpatient (BNV) | payer MEDICAID, SELFPAY | PROVIDERS: PCP Internal Medicine; Visit Provider Internal Medicine | DX: M47.816 Spondylosis without myelopathy or radiculopathy, lumbar region (principal) | CPT/HCPCS: 64555; 64590 ==

== ENCOUNTER 2023-03-28 15:12 | Outpatient (AMB) | payer MEDICAID, SELFPAY ==
--- NOTE | 2023-03-28 15:17 | A.OFFVIS_ITS ---
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 Doyle. Patient reports 50% pain relief with no paresthesia at setting of 60 since the procedure with mild pain with lumbar extension,partially improved range of motion, better daily functioning, sleep and social interactions. Patient reports he was told by Sprint rep to keep his setting at 60. We increased his stimulation to 80 today at which he reported mild and tolerable paresthesia. Patient is also concerned for only one dressing change supply in his SPRINT Box. I have provided patient with additional dressing supplies. Patient will continue to slowly increase stimulation as tolerated and monitor pain relief. Dressing was changed in the clinic today. Denies any recent cough, cold, infection, fever, site tenderness or erythema or other significant changes in medical history since last office visit. Past Procedures: 03/22/23: Right L3 medial branch Sprint trial-50% at 60 without paresthesia, increased to 80 stimulation with positive paresthesia on 03/28/23 12/21/22: Bilateral Diagnostic L3-L4-L5 MBB-90% pain relief for 8 hours, ongoing 60% pain relief 08/24/22: Right Anterior Cutaneous Nerve Block with steroids-80% ongoing pain relief 06/01/21: Diagnostic Right SIJ injection-good results PRIOR: Patient is a pleasant 57 years old male who presents today for evaluation for right upper quadrant pain and chronic upper and lower back pain. He was last seen in our office by Dr. Reaves on 06/01/21 for right SIJ diagnostic injection with no follow ups. Patient reports right sided abdominal pain for 3 months unrelated to PO intake or fasting and radiates towards the mid back. He reports occasional radiation of his back pain into his right lower extremity posteriorly without numbness or tingling. 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 Lopez?s operative notes. His complex medical history is noted for descending thoracic aortic aneurysm status post endovascular repair and cholecystectomy, esophagitis, GERD, peptic ulcer disease, fatty liver and morbid obesity. Patient is followed by Dr. Weber at [facility] [place] and [place] [facility] [place] Patient describes pain as intermittent stabbing, spasming and lancinating pain worse in the morning upon awakening rated at 8/10 on average and least severe pain in the afternoon rated at 5/10. He also reports RUQ pain wakes him up at night with hot and burning sensations. Denies diaphoresis at night or during the day. Pain increases with movements, weather changes, heat/cold applications, prolonged walking, bending, lifting and twisting. Patient takes flexeril 10 mg tid prn, Ibuprofen 800 mg bid prn and Tylenol to manage his symptoms. Patient also takes daily aspirin 81 mg. Patient reports Lidocaine patches were denied by his insurance. Patient reports his GI medications were adjusted s/p EGD and he notes partial symptom relief. He recently completed repeat abdominal US on 07/15/22 which showed generalized increase in hepatic echotexture, consistent with fatty infiltration or hepatocellular disease. Characteristic pericholecystic sparing favors fatty infiltration. No focal hepatic mass or intrahepatic biliary dilatation is seen. Technically limited ultrasound examination, in particular of the pancreas. Patient denies any fever, malaise, unintentional weight loss, dizziness, chest pain, headache, nausea, vomiting, bowel pattern changes, bloody stools, hematuria, painful urination, UTI, kidney stones, leg weakness, bowel or bladder incontinence or saddle anesthesia. Patient also reports occasional chest pain, fatigue, shortness of breath and dyspnea after walking for 10 minutes. He has follow-up with cardiology Dr. Weber and Dr. Marino in 08/2022. Goal blood pressure less than 130/[address] Weber. Patient reports his home BP readings are on average 140-170's/70-80's. Patient reports he will follow up with Dr. Weber about symptomatic high BP readings. PRIOR 04/15/21 Dr. Reaves: Mr. Silvestre Villalobos is very pleasant 56 years old gentleman who presents in my office after a long time of absence. He was treated for lower back pain back in September of 2019. He was complaining on pain in the back with radiation into the right lower extremity. His pain started about 3 years ago. At that time we performed right sacroiliac joint injection with very good results once however the injection was technically difficult with almost no sacroiliac joint space available to penetrate despite very significant efforts to do so. And yet he reported on periarticular joint injection 70% pain relieve which lasted about 45 days. Of where repeated sacroiliac joint injection however patient was lost to follow-up due to COVID-19 infection widespread. Since then he was examined for multiple cardiac problems including thoracic I aortic aneurysm abdominal aortic aneurysm and peripheral vascular disease. He also has some cardiac problems, however he is not on any blood thinners. He was treated by Dr. Marino of 4 dissecting descending thoracic aortic aneurysm. He reports that after this procedure he has severe pain in the right upper abdomen and right costal margin with radiation of this pain to the suprascapular area on the right. He sometimes connect this pain with the pain on the right side in the projection of the right sacroiliac joint. He reports his pain 5/10 in severity he is taking opioids 5 mg oxycodone t.i.d. which is prescribed by primary care doctor. He reports that he cannot sleep normally cannot do activities of daily living he can take care of himself but he cannot function normally he is on sick leave from his job. He reports that heat application and cold applications both aggravates his pain. He reports his pain in terms of tissue damage is tugging, pulling, ranging, dull, sore, hurting, aching, heavy, spreading, radiating, piercing, tight, squeezing, tearing. His past medical history significant for chest pain in angina which was related to descending thoracic aortic aneurysm dissection. He also suffers from hypertension fatigue shortness of breath he has arthritis and he had knee arthroscopies done in the past. He had gallbladder surgery so his gallbladder is absent then we cannot consider pain in right upper quadrant as the gallbladder pain. As it is described above he had stenting of descending thoracic aortic aneurysm. It was done in September of 2020. FORMERLY [facility] Medical History Anemia Anxiety Ascending aortic aneurysm Back pain Constipation Descending thoracic aortic dissection Esophagitis Fatty liver GERD (gastroesophageal reflux disease) HTN (hypertension) Hx of lipoma Hypercholesteremia Leg edema Morbid obesity VALERY (obstructive sleep apnea) Peptic ulcer disease Peripheral vascular disease Pulmonary hypertension Sacroiliac joint dysfunction of right side Sacroiliac joint pain Sacroiliitis Sacroiliitis SOB (shortness of breath) Surgical History History of arthroscopy of both knees History of carpal tunnel release of both wrists History of esophagogastroduodenoscopy (EGD) Hx of cholecystectomy Hx of colonoscopy Hx of repair of dissecting thoracic aortic aneurysm, [place] type B Family History Father Depression Suicide Mother Diabetes Dementia Heart problem Sister Dementia, Onset Age: 73 Sister No problems noted. Brother No problems noted. Family/Other No problems noted. Social History Alcohol intake: former Patient Tobacco Use Status: Former Tobacco user Quit Date: 2 years ago Years Smoked: 30 +/- Review of Systems Const All systems reviewed & are unremarkable except as noted in HPI and below Physical Exam Vital Signs: Last Vital Signs Pulse 63 03/28/23 15:21 BP 160/77 H 03/28/23 15:21 Pulse Ox 98 03/28/23 15:21 Oxygen Delivery Method Room Air 03/28/23 15:21 BMI result Body Mass Index 43.2 General: Appears afebrile. Alert and oriented. Mood and affect appropriate. Follows and participates in conversation appropriately. Respiratory effort is unlabored. Able to transition from sit to stand unassisted. Back/Spine/Pelvis Other: Lead Insertion Site: Lead insertion site looks clean, dry, intact. The area was cleansed again with ChloraPrep, dressed with Bacitracin, gauze and tegaderm. Dressing change done today in clinic. Positive paresthesia around the low back at 80 on the right, increased from 60. Cervical Spine: cervical ROM normal and No Cervical spine tenderness Thoracic/Lumbar Spine: thoracic and lumbar spine normal to inspection, Lasegue's sign negative, straight leg raise negative bilaterally, thoraco-lumbar ROM limited, No thoracic spinal tenderness and lumbar spinal tenderness Assessment & Plan Assessment & Plan (1) Lumbar back pain with radiculopathy affecting right lower extremity: Code(s): M54.16 - Radiculopathy, lumbar region (2) Lumbar spondylosis: Code(s): M47.816 - Spondylosis without myelopathy or radiculopathy, lumbar region Plan Patient is status post Right L3 Sprint PNS for low back pain with satisfactory results at low stimulation which we increased today. Patient will continue to slowly increase stimulation as tolerated and monitor pain relief. Dressing was changed in the clinic today. Sprint rep notified regarding dressing supplies in patient?s Sprint box. All questions were answered and patient agreed with the plan. Next dressing change is scheduled in clinic in 1 week. Coding Level of Care Code Est Pt Level 3 (84231) Diagnoses Lumbar back pain with radiculopathy affecting right lower extremity M54.16 Lumbar spondylosis M47.816
[2023-03-28 15:21] VITALS: BP 160/77; PULSE 63; O2SAT 98; BMI 43.2
== END 2023-03-28 15:47 | disposition home or self-care (01) ==
PROVIDERS: PCP Internal Medicine; Visit Provider Nurse Practitioner Family
DX: M54.16 Radiculopathy, lumbar region (principal); M47.816 Spondylosis without myelopathy or radiculopathy, lumbar region
CPT/HCPCS: 99213

== ENCOUNTER → 2023-03-28 15:12 | Outpatient (BNVA) | payer MEDICAID, SELFPAY | PROVIDERS: PCP Internal Medicine; Visit Provider Nurse Practitioner Family | DX: M54.16 Radiculopathy, lumbar region (principal); M47.816 Spondylosis without myelopathy or radiculopathy, lumbar region | CPT/HCPCS: 99213 ==

== ENCOUNTER → 2023-03-31 14:46 | Outpatient (REF) | payer MEDICAID, SELFPAY ==
--- NOTE | 2023-03-31 14:50 | CA_ITS ---
Transthoracic Echocardiogram Patient (Last, First, Middle): Silvestre Villalobos A Gender: Male Date of : 1965 Age: 57 Procedure Date: 03/31/2023 Procedure Type: Transthoracic Echocardiogram Location: OP Height: 180.34 cm Weight: 131.54 kg BSA: 2.47 m2 Heart Rate: bpm BP: 130 / 70 mmHg Fish Drier: TO Referring MD: Tyree Weber MD Symptoms: I71.2 - Thoracic aortic aneurysm, without rupture Study Quality: Technically Difficult/contrast ECG Rhythm: Sinus Conclusions: - The left ventricular systolic function is normal. The visually estimated ejection fraction is between 60-65%. - There is moderate tricuspid valve regurgitation. - There is moderate dilatation of the ascending aorta measuring 4.60 cm. Findings Procedure Information Contrast agent, definity, is being given per protocol without apparent complications. Left Ventricle Normal left ventricular cavity size. The left ventricular systolic function is normal. The visually estimated ejection fraction is between 60-65%. There is no evidence of regional wall motion abnormalities. Diastolic function is normal for age. There is moderate septal asymmetric hypertrophy. Right Ventricle Mildly increased right ventricular cavity size. There is normal right ventricular systolic function. Atria The left atrium is normal in size. The right atrium is moderately dilated. Aortic Valve There is a normal trileaflet aortic valve. There is no aortic valve stenosis. There is trace (trivial) aortic valve regurgitation. Mitral Valve The mitral valve appears normal. There is trace mitral valve regurgitation. There is no mitral valve stenosis. Pulmonic Valve The pulmonic valve is likely normal. Tricuspid Valve Normal tricuspid valve structure. There is moderate tricuspid valve regurgitation. There is no evidence of pulmonary hypertension. Great Vessels There is moderate dilatation of the ascending aorta measuring 4.60 cm. Venous The inferior vena cava is mildly dilated and collapses greater than 50% with inspiration. Pericardium/Pleural There is no evidence of pericardial effusion. Prior Study Comparison Changes noted compared to prior study dated: 02/21/2022. Tricuspid regurgitation has progressed. Measurements 2D Linear Measurements IVSd: 1.37 0.6-0.9/0.6-1.0 cm LVIDd: 5.14 3.9-5.3/4.2-5.9 cm LVIDd Index: 2.08 2.4-3.2/2.2-3.1 cm/m2 LVIDs: 3.57 2.0-3.6 cm LVPWd: 1.01 0.7-1.1 cm LA Diam: 4.20 2.7-3.8/3.0-4.0 cm LAIDs Index: 1.70 1.5-2.3 cm/m2 LV Mass: 301.04 67-162/88-224 g LV Mass Index: 121.88 43-95/49-115 g/m2 LVOT Diam: 2.30 3.0+(-)1.3 cm 2D Systolic Function EF 4C: 69.90 >55% Mitral Valve MV Pk E: 0.77 MV PK A: 0.62 MV Decel Time: 197.00 E/A: 1.20 E'Lateral: 9.25 E'Medial: 6.85 E/E' Med: 11.30 E/E' Lat: 8.30 PHT: 58.00 MVA PHT: 3.79 Decel Craven: 3.92 Aortic Valve AoV Pk Nicko: 1.72 AoV Mn Nicko: 1.09 AoV VTI: 0.35 AoV Pk Grad: 12.00 Aov Mn Grad: 6.00 LEESA Cont.VTI: 2.53 LVOT LVOT Pk Nicko: 1.08 LVOT Mn Nicko: 0.66 LVOT VTI: 0.22 LVOT Pk Grad: 5.00 LVOT Mn Grad: 2.00 LVOT Diam: 2.30 LVOT Area: 4.15 Diastolic Function MV Pk E: 0.77 MV Pk A: 0.62 E/A: 1.20 E'Medial: 6.85 E/E' Med: 11.30 E' Laterial: 9.25 E/E' Lat: 8.30 Right Ventricle TAPSE (mm): 34.90 TVS' Nicko: 18.00 Tricuspid Valve TR Pk Nicko: 2.52 TR Pk Grad: 25.00 RA Press: 8.00 RVSP: 33.00 Great Vessels Aorta Sinus of Valsalva: 3.69 2.0-3.[address] Ridge: 3.29 1.7-3.4 cm Ao Asc: 4.60 2.1-3.4 cm Updated in Other Vendor System with Status of Final Jose Manuel Bright MD electronically signed on 04/02/2023 10:25:07 AM with status of Final
== END ==
LOC: HO.CARD 14:46
PROVIDERS: Visit Provider Internal Medicine Cardiovascular Disease
DX: I71.20 Thoracic aortic aneurysm, without rupture, unspecified (principal)
CPT/HCPCS: 93306; Q9957

== ENCOUNTER → 2023-03-31 14:50 | Outpatient (BNV) | payer MEDICAID, SELFPAY | PROVIDERS: Visit Provider Internal Medicine | DX: I36.1 Nonrheumatic tricuspid (valve) insufficiency (principal) | CPT/HCPCS: 93306 ==

== ENCOUNTER → 2023-04-04 14:52 | Outpatient (BNVA) | payer MEDICAID, SELFPAY | PROVIDERS: PCP Internal Medicine; Visit Provider Nurse Practitioner Family | DX: Z48.1 Encounter for planned postprocedural wound closure (principal); Z96.82 Presence of neurostimulator | CPT/HCPCS: 99211 ==

== ENCOUNTER → 2023-04-11 13:49 | Outpatient (BNVA) | payer MEDICAID, SELFPAY | PROVIDERS: PCP Internal Medicine; Visit Provider Internal Medicine | DX: Z48.01 Encounter for change or removal of surgical wound dressing (principal) | CPT/HCPCS: 99211 ==

== ENCOUNTER → 2023-04-18 13:56 | Outpatient (BNVA) | payer MEDICAID, SELFPAY | PROVIDERS: PCP Internal Medicine; Visit Provider Anesthesiology | DX: Z48.00 Encounter for change or removal of nonsurgical wound dressing (principal); Z96.82 Presence of neurostimulator | CPT/HCPCS: 99211 ==

== ENCOUNTER → 2023-04-25 13:54 | Outpatient (BNVA) | payer MEDICAID, SELFPAY | PROVIDERS: PCP Internal Medicine; Visit Provider Internal Medicine | DX: Z48.01 Encounter for change or removal of surgical wound dressing (principal) | CPT/HCPCS: 99211 ==

== ENCOUNTER → 2023-05-02 14:01 | Outpatient (BNVA) | payer MEDICAID, SELFPAY | PROVIDERS: PCP Internal Medicine; Visit Provider Internal Medicine | DX: Z48.01 Encounter for change or removal of surgical wound dressing (principal) | CPT/HCPCS: 99211 ==

== ENCOUNTER → 2023-05-09 13:59 | Outpatient (BNVA) | payer MEDICAID, SELFPAY | PROVIDERS: PCP Internal Medicine; Visit Provider Internal Medicine ==

== ENCOUNTER 2023-05-11 08:13 | Outpatient (REF) | payer MEDICAID, SELFPAY ==
[2023-05-11 11:46] LABS: MANUAL DIFF FLAG NO
[2023-05-11 11:53] LABS: Basophils Absolute Auto 0.1 X10*3/uL (0.0-0.2); Basophils Percent Auto 0.6 % (0-2); Eosinophils Absolute Auto 0.3 X10*3/uL (0.0-0.4); Hematocrit 41.9 % (42.0-52.0); Hemoglobin 13.7 g/dl (14.0-18.0); Imm Gran Abs Auto 0.04 X10*3/uL (0.00-0.03); Imm Gran Pct Auto 0.5 % (0.0-0.4); Lymphocytes Absolute Auto 2.6 X10*3/uL (1.2-4.9); Lymphocytes Percent Auto 29.3 % (20-40); Mean Corpuscular HGB Conc 32.7 g/dl (31.0-36.0); Mean Corpuscular Hemoglobin 28.9 pg (27.0-33.0); Mean Corpuscular Volume 88.4 fL (80.0-98.0); Mean Platelet Volume 9.3 fL (9.4-12.4); Monocytes Absolute Auto 0.6 X10*3/uL (0.1-1.2); Monocytes Percent Auto 6.8 % (2-11); Neutrophils Absolute Auto 5.2 x10*3/uL (2.0-8.3); Neutrophils Percent Auto 59.8 % (45-73); Platelet Count 247 X10*3/uL (160-400); Red Blood Count 4.74 X10*6/uL (4.60-5.80); White Blood Count 8.7 X10*3/uL (4.8-10.8)
[2023-05-11 12:13] LABS: Estimated Average Glucose 120 mg/dL; Hemoglobin A1c % 5.8 % (<6.0)
[2023-05-11 12:24] LABS: Anion Gap 10 (12-20); Blood Urea Nitrogen 13 mg/dL (9-16); Calcium 8.8 mg/dL (8.4-10.2); Carbon Dioxide 28 mmol/L (22-29); Chloride 107 mmol/L (96-108); Cholesterol 132 mg/dL (<200); Estimated Glomerular Filt Rate > 60; Glucose Random 116 mg/dL (60-115); HDL Cholesterol 32 mg/dL (>40); LDL Cholesterol Calculated 68 mg/dL (<100); Potassium 4.2 mmol/L (3.3-5.1); Sodium 141 mmol/L (135-145); Triglycerides 161 mg/dL (<150)
[2023-05-11 12:59] LABS: Creatinine Urine 262.56 mg/dL
== END 2023-05-11 08:14 | disposition home or self-care (01) ==
LOC: HO.HHCL 08:13
PROVIDERS: Visit Provider Internal Medicine
DX: E11.65 Type 2 diabetes mellitus with hyperglycemia (principal)
CPT/HCPCS: 36415; 80048; 80061; 82043; 82570; 83036; 85025

== ENCOUNTER 2023-05-18 09:38 | Outpatient (AMB) | payer MEDICAID, SELFPAY ==
--- NOTE | 2023-05-18 09:42 | A.OFFVIS_ITS ---
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 Current pain is rated at 2/10. Patient reports ongoing 80% pain relief with paresthesia at setting of 80 since the procedure with significant improvement with his ADLs, better daily functioning, sleep and social interactions. The dressing was removed today. Lead insertion site look clean, dry, intact, no redness, no swelling, no pathological discharge. Area was cleansed with Chloraprep. Lead pulled with tip intact and the area was cleansed again with Chloraprep, applied Bacitracin and covered it with gauze and Tegaderm film dressing. Patient reports he would like to defer left sided Sprint PNS trial at this time as he is receiving some relief on left side too. Denies any recent cough, cold, infection, fever, site tenderness or erythema or other significant changes in medical history since last office visit. Past Procedures: 05/18/23: Right L3 Sprint removal-80% pa in relief (setting at 80 prior to removal) 03/22/23: Right L3 medial branch Sprint trial-80% at 80 with paresthesia 12/21/22: Bilateral Diagnostic L3-L4-L5 MBB-90% pain relief for 8 hours, ongoing 60% pain relief 08/24/22: Right Anterior Cutaneous Nerve Block with steroids-80% ongoing pain relief 06/01/21: Diagnostic Right SIJ injection -good results PRIOR: Patient is a pleasant 57 years old male who presents today for evaluation for right upper quadrant pain and chronic upper and lower back pain. He was last seen in our office by Dr. Reaves on 06/01/21 for right SIJ diagnostic injection with no follow ups. Patient reports right sided abdominal pain for 3 months unrelated to PO intake or fasting and radiates towards the mid back. He reports occasional radiation of his back pain into his right lower extremity posteriorly without numbness or tingling. 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 Lopez?s operative notes. His complex medical history is noted for descending thoracic aortic aneurysm status post endovascular repair and cholecystectomy, esophagitis, GERD, peptic ulcer disease, fatty liver and morbid obesity. Patient is followed by Dr. Weber at [facility] [place] and Dr. Marino at [facility] [place]. Patient describes pain as intermittent stabbing, spasming and lancinating pain worse in the morning upon awakening rated at 8/10 on average and least severe pain in the afternoon rated at 5/10. He also reports RUQ pain wakes him up at night with hot and burning sensations. Denies diaphoresis at night or during the day. Pain increases with movements, weather changes, heat/cold applications, prolonged walking, bending, lifting and twisting. Patient takes flexeril 10 mg tid prn, Ibuprofen 800 mg bid prn and Tylenol to manage his symptoms. Patient also takes daily aspirin 81 mg. Patient reports Lidocaine patches were denied by his insurance. Patient reports his GI medications were adjusted s/p EGD and he notes partial symptom relief. He recently completed repeat abdominal US on 07/15/22 which showed generalized increase in hepatic echotexture, consistent with fatty infiltration or hepatocellular disease. Characteristic pericholecystic sparing favors fatty infiltration. No focal hepatic mass or intrahepatic biliary dilatation is seen. Technically limited ultrasound examination, in particular of the pancreas. Patient denies any fever, malaise, unintentional weight loss, dizziness, chest pain, headache, nausea, vomiting, bowel pattern changes, bloody stools, hematuria, painful urination, UTI, kidney stones, leg weakness, bowel or bladder incontinence or saddle anesthesia. Patient also reports occasional chest pain, fatigue, shortness of breath and dyspnea after walking for 10 minutes. He has follow-up with cardiology Dr. Weber and Dr. Marino in 08/2022. Goal blood pressure less than 130/[address] Weber. Patient reports his home BP readings are on average 140-170's/70-80's. Patient reports he will follow up with Dr. Weber about symptomatic high BP readings. PRIOR 04/15/21 Dr. Reaves: Mr. Silvestre Villalobos is very pleasant 56 years old gentleman who presents in my offi ce after a long time of absence. He was treated for lower back pain back in September of 2019. He was complaining on pain in the back with radiation into the right lower extremity. His pain started about 3 years ago. At that time we performed right sacroiliac joint injection with very good results once however the injection was technically difficult with almost no sacroiliac joint space available to penetrate despite very significant efforts to do so. And yet he reported on periarticular joint injection 70% pain relieve which lasted about 45 days. Of where repeated sacroiliac joint injection however patient was lost to follow-up due to COVID-19 infection widespread. Since then he was examined for multiple cardiac problems including thoracic I aortic aneurysm abdominal aortic aneurysm and peripheral vascular disease. He also has some cardiac problems, however he is not on any blood thinners. He was treated by Dr. Marino of 4 dissecting descending thoracic aortic aneurysm. He reports that after this procedure he has severe pain in the right upper abdomen and right costal margin with radiation of this pain to the suprascapular area on the right. He sometimes connect this pain with the pain on the right side in the projection of the right sacroiliac joint. He reports his pain 5/10 in severity he is taking opioids 5 mg oxycodone t.i.d. which is prescribed by primary care doctor. He reports that he cannot sleep normally cannot do activities of daily living he can take care of himself but he cannot function normally he is on sick leave from his job. He reports that heat application and cold applications both aggravates his pain. He reports his pain in terms of tissue damage is tugging, pulling, ranging, dull, sore, hurting, aching, heavy, spreading, radiating, piercing, tight, squeezing, tearing. His past medical history significant for chest pain in angina which was related to descending thoracic aortic aneurysm dissection. He also suffers from hypertension fatigue shortness of breath he has arthritis and he had knee arthroscopies done in the past. He had gallbladder surgery so his gallbladder is absent then we cannot consider pain in right upper quadrant as the gallbladder pain. As it is described above he had stenting of descending thoracic aortic aneurysm. It was done in September of 2020. FOR[facility]LY [facility] Medical History Peripheral vascular disease Morbid obesity Sacroiliac joint dysfunction of right side Sacroiliitis HTN (hypertension) Descending thoracic aortic dissection Ascending aortic aneurysm Leg edema SOB (shortness of breath) Peptic ulcer disease Back pain Anxiety Hx of lipoma Constipation Esophagitis Sacroiliac joint pain Sacroiliitis Hypercholesteremia GERD (gastroesophageal reflux disease) Fatty liver VALERY (obstructive sleep apnea) Pulmonary hypertension Anemia Surgical History Hx of repair of dissecting thoracic aortic aneurysm, [place] type B Hx of colonoscopy History of esophagogastroduodenoscopy (EGD) History of carpal tunnel release of both wrists History of arthroscopy of both knees Hx of cholecystectomy Family History Father Depression Suicide Mother Diabetes Dementia Heart problem Sister Dementia, Onset Age: 73 Sister No problems noted. Brother No problems noted. Family/Other No problems noted. Social History Alcohol intake: former Patient Tobacco Use Status: Former Tobacco user Quit Date: 2 years ago Years Smoked: 30 +/- Review of Systems Const All systems reviewed & are unremarkable except as noted in HPI and below Physical Exam Vital Signs: Last Vital Signs Pulse 58 05/18/23 09:45 BP 139/66 05/18/23 09:45 Pulse Ox 97 05/18/23 09:45 Oxygen Delivery Method Room Air 05/18/23 09:45 BMI result Body Mass Index 42.8 General: Appears afebrile. Alert and oriented. Mood and affect appropriate. Follows and participates in conversation appropriately. Respiratory effort is unlabored. Able to transition from sit to stand unassisted. Lead Insertion Site: Lead insertion site looks clean, dry, intact. Lead pulled with tip intact. Assessment & Plan Assessment & Plan (1) Lumbar spondylosis: Code(s): M47.816 - Spondylosis without myelopathy or radiculopathy, lumbar region Plan Patient presented today for Right L3 Sprint PNS lead removal. He reports ongoing 80 % pain relief. Right Sprint PNS lead pulled with tip intact. Patient would like to monitor his pain s/p Sprint removal and defer the left Sprint PNS trial at this time as he has some left side pain coverage as well. Patient will notify our office when his pain returns. All questions were answered and the patient agreed with the plan. Follow up as needed. Coding Level of Care Code Est Pt Level 3 (29479) Diagnoses Lumbar spondylosis M47.816
[2023-05-18 09:45] VITALS: BP 139/66; PULSE 58; O2SAT 97; BMI 42.8
== END 2023-05-18 09:51 | disposition home or self-care (01) ==
PROVIDERS: PCP Internal Medicine; Visit Provider Nurse Practitioner Family
DX: M47.816 Spondylosis without myelopathy or radiculopathy, lumbar region (principal)
CPT/HCPCS: 99213

== ENCOUNTER → 2023-05-18 09:38 | Outpatient (BNVA) | payer MEDICAID, SELFPAY | PROVIDERS: PCP Internal Medicine; Visit Provider Nurse Practitioner Family | DX: M47.816 Spondylosis without myelopathy or radiculopathy, lumbar region (principal) | CPT/HCPCS: 99212 ==

== ENCOUNTER 2023-05-31 10:38 | Outpatient (REF) | payer MEDICAID, SELFPAY ==
[2023-06-01 10:45] LABS: Free Prostate Spec Ag 0.1 ng/mL; Percent Free Prostate Spec Ag 14 % (calc) (>25); Prostate Specific Ag Total 0.7 ng/mL (< OR = 4.0)
== END 2023-05-31 10:39 | disposition home or self-care (01) ==
LOC: HO.HHCL 10:38
PROVIDERS: Visit Provider Internal Medicine
DX: N40.1 Benign prostatic hyperplasia with lower urinary tract symptoms (principal); R35.1 Nocturia
CPT/HCPCS: 36415; 84154

== ENCOUNTER 2023-06-12 10:37 | Emergency (ER) | payer MEDICAID, SELFPAY ==
--- NOTE | ~2023-06-12 | CT_ITS ---
EXAMINATION: CT ABDOMEN AND PELVIS WITHOUT CONTRAST CLINICAL INFORMATION: Right flank pain. COMPARISON: 05/04/2022 TECHNIQUE: Multidetector volumetric imaging was performed from the superior aspect of the liver through the pubic symphysis. Sagittal and coronal reformatted images were obtained on the technologist's workstation. This CT examination was performed using dose optimization techniques as appropriate, variously including the following: *Automated exposure control *Adjustment of mA and/or kV according to patient size (this includes techniques or standardized protocols for targeted exams where dose is matched to indication/reason for exam; i.e. extremities or head) *Use of iterative reconstruction technique DLP: 981 mGy-cm FINDINGS: LUNG BASES: Trace pericardial effusion. LIVER, GALLBLADDER, AND BILIARY TREE: The noncontrast liver is normal in size, shape, and attenuation. No biliary ductal dilatation is present. The gallbladder is surgically absent. PANCREAS: Unremarkable. SPLEEN: Unremarkable. ADRENAL GLANDS: Unremarkable. KIDNEYS AND URETERS: The kidneys are symmetric in size. No renal or ureteral calculus. No hydronephrosis or perinephric stranding. BLADDER: Unremarkable. GASTROINTESTINAL TRACT: The small and large bowel are unremarkable. The appendix is unremarkable. ABDOMINAL WALL: Fat-containing bilateral inguinal hernias. LYMPH NODES: No bulky abdominal or pelvic lymphadenopathy. VASCULAR: Status post endovascular stent grafting of the descending aorta, abdominal aorta extending into the common iliac arteries bilaterally. Evaluation of the vasculature is limited by the lack of intravenous contrast. The descending thoracic aorta measures approximately 5.1 cm in diameter similar to prior. PELVIC VISCERA: Unremarkable. OSSEOUS STRUCTURES: No destructive bone lesions. CT/CT abdomen pelvis wo IV con IMPRESSION: No acute abnormality in the abdomen or pelvis.
[2023-06-12 10:49] VITALS: BP 130/71; PULSE 64; RESP 18; TEMP 35.8; O2SAT 95; BMI 43.5
--- NOTE | 2023-06-12 10:55 | ED_ITS ---
HPI - General Adult General Chief complaint: Abdominal Pain Stated complaint: abd around to back pain Time Seen by Provider: 06/12/23 12:28 Source: patient Mode of arrival: ambulatory Limitations: no limitations History of Present Illness HPI narrative: 58-year-old male came in for evaluation of abdominal pain for the past 3 weeks. Pain is to the right groin area radiates to the right lower abdomen go to the right flank. Patient is having frequency urination with odor smell of the urine. Pain is getting worse since the last 2 days, pain is an intermittent for few minutes then go away, no clear aggravating factor, no clear relieving factor, normal bowel movement, pain sometimes associated with nausea but no vomiting, no fever. Last bowel movement was normal and was yesterday. Cholecystectomy is the only intra-abdominal history of surgery. Related Data Home Medications Medication Instructions Recorded Confirmed atorvastatin 40 mg tablet 40 mg PO BEDTIME 05/27/20 05/02/23 carvedilol 25 mg tablet (Coreg) 25 mg PO BID 05/27/20 05/02/23 lisinopril 40 mg tablet 40 mg PO DAILY 05/27/20 05/02/23 aspirin 81 mg tablet,delayed 81 mg PO DAILY 08/31/21 05/02/23 release (Adult Aspirin Regimen) amlodipine 10 mg tablet 10 mg PO DAILY 06/10/22 05/02/23 cyclobenzaprine 10 mg tablet 10 mg PO TID 08/12/22 05/02/23 budesonide-formoterol HFA 160 inhalation 12/23/22 05/02/23 mcg-4.5 mcg/actuation aerosol inhaler (Symbicort) lancets 33 gauge (TRUEplus Lancets) #100 ea 02/10/23 05/02/23 metformin 500 mg tablet,extended 500 mg PO QPM 02/10/23 05/02/23 release 24 hr albuterol sulfate 90 mcg/actuation 2 puff inhalation Q6H 05/18/23 aerosol inhaler (Ventolin HFA) fluticasone propionate 50 1 spray intranasal DAILY 05/18/23 mcg/actuation nasal spray,suspension prazosin 1 mg capsule 1 mg PO BEDTIME 05/18/23 Previous Rx's Medication Instructions Recorded lidocaine HCl 4 % topical patch 1 patch topical BID PRN pain #30 ea 07/06/22 (LidaFlex) lansoprazole 30 mg capsule,delayed 30 mg PO DAILY #60 caps 12/20/22 release Allergies Allergy/AdvReac Type Severity Reaction Status Date / Time duloxetine Allergy Severe Nightmare Verified 05/18/23 09:46 baclofen [BACLOFEN] Allergy Intermediate RASH Verified 05/18/23 09:46 Review of Systems 2 Review of Systems: All other systems are reviewed and are negative Constitutional: Reports as per HPI and Reports no additional constitutional complaints Eyes: Reports as per HPI and Reports no additional eye complaints Reports system reviewed and no additional complaints, except as documented Cardiovascular: Reports as per HPI and Reports no additional cardiovascular complaints Respiratory: Reports as per HPI and Reports no additional respiratory complaints Gastrointestinal: Reports as per HPI and Reports no additional gastrointestinal complaints Genitourinary: Reports no additional female genitourinary complaints Musculoskeletal: Reports no additional musculoskeletal complaints Skin/Breast: Reports system reviewed and no additional complaints, except as docu Psychiatric: Reports no additional psychiatric complaints Endocrine: Reports no additional endocrine complaints Hematologic/Lymphatic: Reports no additional hematologic/lymphatic complaints Allergic/Immunologic: Reports no additional allergic/immunologic complaints Reports system reviewed and no additional complaints, except as documented and Reports Abnormal speech present [facility] Past Medical History Medical History Peripheral vascular disease Morbid obesity Sacroiliac joint dysfunction of right side Sacroiliitis HTN (hypertension) Descending thoracic aortic dissection Ascending aortic aneurysm Leg edema SOB (shortness of breath) Peptic ulcer disease Back pain Anxiety Hx of lipoma Constipation Esophagitis Sacroiliac joint pain Sacroiliitis Hypercholesteremia GERD (gastroesophageal reflux disease) Fatty liver VALERY (obstructive sleep apnea) Pulmonary hypertension Anemia Surgical History Hx of repair of dissecting thoracic aortic aneurysm, Alexander type B Hx of colonoscopy History of esophagogastroduodenoscopy (EGD) History of carpal tunnel release of both wrists History of arthroscopy of both knees Hx of cholecystectomy Family History Family History Father Depression Suicide Mother Diabetes Dementia Heart problem Sister Dementia, Onset Age: 73 Sister No problems noted. Brother No problems noted. Family/Other No problems noted. Social History Social History Alcohol intake: former Patient Tobacco Use Status: Former Tobacco user Quit Date: 2 years ago Years Smoked: 30 +/- Smoked in Last 30 Days: No Advance Directives: No Advance Directives Information Provided: Yes Physical Exam ED Vital Signs: Vital Signs - 24 hr 06/12/23 10:49 06/12/23 12:29 06/12/23 15:15 Temperature 96.5 F L 97.3 F Pulse Rate 64 60 61 Respiratory Rate 18 18 18 Blood Pressure 130/71 124/65 123/66 Pulse Oximetry 95 96 93 Oxygen Delivery Method Room Air Room Air Room Air BMI result Body Mass Index 43.5 Vital signs have been reviewed and appear to be correct. Blood pressure elevated. Heart rate normal. Respiratory rate normal. Temperature normal. Oxygen saturation normal. Appearance: Alert. Oriented X3. No acute distress. Head: Normal external exam. Normocephalic. Atraumatic. No King signs noted. No raccoon eyes noted Eyes: PERRLA. EOMI. Conjunctiva and sclera normal. Eyelids normal. ENT: TM's Normal. Pharynx normal. Uvula midline. Moist mucous membranes. No trismus noted. No drooling noted. No muffled voice noted. Neck: Normal inspection. Neck supple. FROM. No adenopathy. Thyroid Normal. No meningeal signs. No neck mass noted. CVS: Normal heart rate and rhythm. Heart sound normal. No murmurs noted. Pulses normal throughout. Respiratory: No respiratory distress. Painless inspiration. Breath sounds normal. No wheezes/rales/rhonchi noted. Chest nontender. No accessory muscle usage noted or decreased air movement noted. Abdomen: Soft and nontender. Bowel sounds normal in all 4 quadrants. No distention noted. No organomegaly noted. No visible injury noted. Back: No CVA tenderness. Full range of motion noted. Skin: Skin warm and dry. Normal skin color. Normal skin turgor. No rashes/lesions/lacerations noted. Extremities: No lower extremity edema. Extremities exhibit normal range of motion. Extremities nontender. Neuro: Oriented X 3. Cranial nerve exam: II-XII are grossly intact No motor deficit. No sensory deficit. Reflexes normal. Course Course Course Narrative: RME: 58 yold male with pmh of aortic aneursym and stent in aorta presents to the ED for foul odor uine, right lower abdominal pain, and right flank pain for couple of weeks. labs and UA ordered. Patient is not toxic appearing. Reevaluation(s) Reevaluation #1: Right flank/right-sided abdominal pain for 3 weeks and worsening over the past 2 days, for labs, UA, CT abdomen and pelvis are unremarkable for intra-abdominal pathology in particular kidney stone versus appendicitis. Time: 15:33 Medications Administered Discontinued Medications Generic Name Dose Route Start Last Admin Trade Name Lico PRN Reason Stop Dose Admin Ibuprofen 600 mg 06/12/23 15:37 06/12/23 15:46 Ibuprofen 600 Mg Tablet PO 06/12/23 15:38 600 mg ONCE ONE Administration Oxycodone HCl 5 mg 06/12/23 15:32 06/12/23 15:46 Oxycodone Hcl Immed Release 5 Mg Tablet PO 06/12/23 15:33 5 mg ONCE ONE Administration Medical Decision Making Differential Diagnosis Differential Diagnoses: The differential diagnosis associated with the presentation includes (UTI, pyelonephritis, obstructing kidney stone, acute appendicitis, colitis, diverticulitis, small-bowel obstruction, severe anemia, electrolyte abnormality.) Admission/Observation Consideration of admission/observation: Escalation of care including admission/observation considered Lab Data MDM Lab Attestation statement: I reviewed the patient's lab results. 06/12/23 11:42 06/12/23 11:42 Labs: Lab Results 06/12/23 Range/Units 11:42 WBC 8.6 (4.8-10.8) X10*3/uL RBC 4.82 (4.60-5.80) X10*6/uL Hgb 14.1 (14.0-18.0) g/dl Hct 41.7 L (42.0-52.0) % MCV 86.5 (80.0-98.0) fL MCH 29.3 (27.0-33.0) pg MCHC 33.8 (31.0-36.0) g/dl RDW 13.3 (11.0-16.0) % Plt Count 229 (160-400) X10*3/uL MPV 8.7 L (9.4-12.4) fL Immature Gran % (Auto) 0.2 (0.0-0.4) % Neut % (Auto) 61.5 (45-73) % Lymph % (Auto) 27.9 (20-40) % [place] % (Auto) 7.2 (2-11) % Eos % (Auto) 2.7 (0-4) % Baso % (Auto) 0.5 (0-2) % Lymph # (Auto) 2.4 (1.2-4.9) X10*3/uL [place] # (Auto) 0.6 (0.1-1.2) X10*3/uL Eos # (Auto) 0.2 (0.0-0.4) X10*3/uL Baso # (Auto) 0.0 (0.0-0.2) X10*3/uL Abs Immat Gran (auto) 0.02 (0.00-0.03) X10*3/uL Absolute Neuts (auto) 5.3 (2.0-8.3) x10*3/uL Absolute Nucleated RBC 0.000 (0.0-0.012) X10*3/uL Nucleated RBC % (auto) 0.0 (0.0-0.2) /100WBC Sodium 140 (135-145) mmol/L Potassium 4.0 (3.3-5.1) mmol/L Chloride 106 (96-108) mmol/L Carbon Dioxide 25 (22-29) mmol/L Anion Gap 13 (12-20) BUN 11 (9-16) mg/dL Creatinine 0.71 (0.5-1.4) mg/dL Estim Creat Clear Calc 158.4 Estimated GFR > 60 Random Glucose 117 H (60-115) mg/dL Calcium 9.5 D (8.4-10.2) mg/dL Total Bilirubin 0.5 (0.0-1.0) mg/dL AST 17 (5-37) U/L ALT 26 (0-40) U/L Alkaline Phosphatase 80 (39-117) U/L Total Protein 7.1 (6.5-8.0) g/dL Albumin 4.0 (3.5-5.0) g/dL Lipase 15 (8-78) U/L Urine Color Dark Yellow Urine Appearance Clear Urine pH 6.0 (5.0-9.0) Ur Specific [place] >= 1.030 H (1.005-1.025) Urine Protein 100 (2+) H (Neg-Trace) mg/dL Urine Glucose (UA) Negative (Negative) mg/dL Urine Ketones 15 (Negative) mg/dL Urine Blood Trace H (Negative) Urine Nitrite Negative (Negative) Ur Leukocyte Esterase Trace H (Negative) Urine RBC 11-20 H (0-2) /HPF Urine WBC 0-5 (0-5) /HPF Ur Squamous Epith Cells 0-2 (0-2) /HPF Urine Bacteria None Seen (None Seen) Hyaline Casts 6-10 (0-2) /LPF Independent Interpretation I performed an independent interpretation of an: CT Scan (Abdomen pelvis: No acute intrathoracic pathology.) Radiology Impression Discussion of test interpretation with radiology: I have reviewed the radiologist's reading. Discharge Plan Discharge Clinical Impression: Abdominal pain Qualifiers: Abdominal location: right lower quadrant Qualified Code(s): R10.31 - Right lower quadrant pain Patient Disposition: Home, Self-Care Instructions: Acute Abdominal Pain (ED) Prescriptions: No Action LidaFlex 4 % adhesive patch,medicated 1 patch topical BID PRN (Reason: pain) Qty: 30 2RF lansoprazole 30 mg capsule,delayed release(DR/EC) 30 mg PO DAILY Qty: 60 2RF atorvastatin 40 mg Tablet 40 mg PO BEDTIME carvedilol [Coreg] 25 mg Tablet 25 mg PO BID lisinopril 40 mg Tablet 40 mg PO DAILY aspirin [Adult Aspirin Regimen] 81 mg tablet,delayed release (DR/EC) 81 mg PO DAILY amlodipine 10 mg tablet 10 mg PO DAILY cyclobenzaprine 10 mg tablet 10 mg PO TID metformin 500 mg tablet extended release 24 hr 500 mg PO QPM (DME) lancets [TRUEplus Lancets] 33 gauge misc See Rx Instructions .ROUTE QAM Qty: 100 Rx Instructions: As directed budesonide-formoterol [Symbicort] 160-4.5 mcg/actuation HFA aerosol inhaler inhalation fluticasone propionate 50 mcg/actuation spray,suspension 1 spray intranasal DAILY albuterol sulfate [Ventolin HFA] 90 mcg/actuation HFA aerosol inhaler 2 puff inhalation Q6H prazosin 1 mg capsule 1 mg PO BEDTIME Referrals: Aaliyah Roche MD [Primary Care Provider] - Interventions: ED Discharge Assessment Last Done: 06/12/23 15:49 Discharge Date/Time: 06/12/23 15:50
[2023-06-12 11:46] LABS: MANUAL DIFF FLAG NO
[2023-06-12 11:54] LABS: Basophils Percent Auto 0.5 % (0-2); Eosinophils Absolute Auto 0.2 X10*3/uL (0.0-0.4); Eosinophils Percent Auto 2.7 % (0-4); Hematocrit 41.7 % (42.0-52.0); Hemoglobin 14.1 g/dl (14.0-18.0); Imm Gran Abs Auto 0.02 X10*3/uL (0.00-0.03); Imm Gran Pct Auto 0.2 % (0.0-0.4); Lymphocytes Absolute Auto 2.4 X10*3/uL (1.2-4.9); Lymphocytes Percent Auto 27.9 % (20-40); Mean Corpuscular HGB Conc 33.8 g/dl (31.0-36.0); Mean Corpuscular Hemoglobin 29.3 pg (27.0-33.0); Mean Corpuscular Volume 86.5 fL (80.0-98.0); Mean Platelet Volume 8.7 fL (9.4-12.4); Monocytes Absolute Auto 0.6 X10*3/uL (0.1-1.2); Monocytes Percent Auto 7.2 % (2-11); Neutrophils Absolute Auto 5.3 x10*3/uL (2.0-8.3); Neutrophils Percent Auto 61.5 % (45-73); Platelet Count 229 X10*3/uL (160-400); Red Blood Count 4.82 X10*6/uL (4.60-5.80); Red Cell Distribution Width 13.3 % (11.0-16.0); White Blood Count 8.6 X10*3/uL (4.8-10.8)
[2023-06-12 11:55] LABS: Appearance Urine Clear; Color Urine Dark Yellow; Glucose Urine UA Negative (Negative); Leukocyte Esterase Urine Trace (Negative); Nitrite Urine Negative (Negative); Specific Gravity - Urine >= 1.030 (1.005-1.025); UMIC TRIGGER UACC YES; Urine Blood Trace (Negative); Urine Ketones 15 mg/dL (Negative); Urine Protein 100 (2+) mg/dL (Neg-Trace)
[2023-06-12 12:05] LABS: Alanine Aminotransferase 26 U/L (0-40); Alkaline Phosphatase 80 U/L (39-117); Anion Gap 13 (12-20); Aspartate Amino Transferase 17 U/L (5-37); Bilirubin Total 0.5 mg/dL (0.0-1.0); Blood Urea Nitrogen 11 mg/dL (9-16); Calcium 9.5 mg/dL (8.4-10.2); Carbon Dioxide 25 mmol/L (22-29); Chloride 106 mmol/L (96-108); Creatinine Clr Calc Pharmacy 158.4; Estimated Glomerular Filt Rate > 60; Glucose Random 117 mg/dL (60-115); Lipase 15 U/L (8-78); Sodium 140 mmol/L (135-145); Total Protein 7.1 g/dL (6.5-8.0)
[2023-06-12 12:12] LABS: Bacteria Urine None Seen (None Seen); Squamous Epithelial Cell Urine 0-2 /HPF (0-2); WBC Urine 0-5 /HPF (0-5)
[2023-06-12 12:29] VITALS: BP 124/65; PULSE 60; RESP 18; O2SAT 96
[2023-06-12 15:15] VITALS: BP 123/66; PULSE 61; RESP 18; TEMP 36.3; O2SAT 93
[2023-06-12] MEDS: oxyCODONE HCl Immed Release 5 MG TABLET PO (15:46)
[2023-06-12] MEDS: Ibuprofen 600 MG TABLET PO (15:46)
--- NOTE | 2023-06-12 15:49 | PC.NURSE ---
pt resting quietly reporting 8/10 RUQ/flank pain, medicated per MAR, pt planning on following up with urology and GI.
== END 2023-06-12 15:50 | disposition home or self-care (01) ==
PROVIDERS: Physician Assistant; Emergency Provider Emergency Medicine; PCP Internal Medicine
DX: R10.31 Right lower quadrant pain (principal); R35.0 Frequency of micturition; M54.50 Low back pain, unspecified; Z87.891 Personal history of nicotine dependence; Z79.899 Other long term (current) drug therapy
CPT/HCPCS: 36415; 74176; 80053; 81001; 83690; 85025; 99284

== ENCOUNTER 2023-06-19 13:56 | Outpatient (REF) | payer MEDICAID, SELFPAY | END 2023-06-19 13:57 | disposition home or self-care (01) | LOC: HO.LNP 13:56 | PROVIDERS: PCP Internal Medicine; Referring Provider Internal Medicine; Visit Provider Surgery | DX: D17.9 Benign lipomatous neoplasm, unspecified (principal); Z79.899 Other long term (current) drug therapy | CPT/HCPCS: 11403; 11422; 88304 ==

== ENCOUNTER 2023-06-19 13:56 | Outpatient (AMB) | payer MEDICAID, SELFPAY ==
--- NOTE | 2023-06-19 13:59 | MHC.OFFVIS ---
Intake Vital Signs 06/19/23 14:06 Height 5 ft 10 in Weight 301 lb BMI 43.2 BP 109/58 L Blood Pressure Location Rt brachial Position Sitting Pulse 62 Intake Visit Reasons: Lipoma~ Rt lat mid abd Intake Note: Patient referred for lipoma on Rt lat mid back. Present for 2 yrs. C/o painful lipoma on back and chest. 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 Denies bleeding or oozing. Grade And Center Marker Required: No Accompanied by: Self / Same As Patient Allergies duloxetine Allergy (Severe, Verified 06/19/23 14:08) Nightmare baclofen [BACLOFEN] Allergy (Intermediate, Verified 06/19/23 14:08) RASH Medication List - Last Reconciled 06/19/23 by Anastacio Anderson MD albuterol sulfate 90 mcg/actuation (Ventolin HFA) 2 puffs inhalation Q6H amlodipine 10 mg PO DAILY aspirin (Adult Aspirin Regimen) 81 mg PO DAILY atorvastatin 40 mg PO BEDTIME budesonide-formoterol 160-4.5 mcg/actuation (Symbicort) inhalation carvedilol (Coreg) 25 mg PO BID fluticasone propionate 50 mcg/actuation 1 spray intranasal DAILY lancets (TRUEplus Lancets) As directed lidocaine HCl 4% (LidaFlex) 1 patch topical BID PRN lisinopril 40 mg PO DAILY prazosin 1 mg PO BEDTIME HPI HPI Comments History of Present Illness Details Patient presents with a history of multiple lipoma excisions. He now presents with 4 lipomas he wishes to have excised. One involves the right flank, 2 right lower quadrant abdominal wall, left anterior chest x1. As noted above, he has had multiple excisions in the past for these. Chart was reviewed patient evaluated [facility] Medical History Peripheral vascular disease Morbid obesity Sacroiliac joint dysfunction of right side Sacroiliitis HTN (hypertension) Descending thoracic aortic dissection Ascending aortic aneurysm Leg edema SOB (shortness of breath) Peptic ulcer disease Back pain Anxiety Hx of lipoma Constipation Esophagitis Sacroiliac joint pain Sacroiliitis Hypercholesteremia GERD (gastroesophageal reflux disease) Fatty liver VALERY (obstructive sleep apnea) Pulmonary hypertension Anemia Surgical History Hx of repair of dissecting thoracic aortic aneurysm, Alexander type B Hx of colonoscopy History of esophagogastroduodenoscopy (EGD) History of carpal tunnel release of both wrists History of arthroscopy of both knees Hx of cholecystectomy Family History Father Depression Suicide Mother Diabetes Dementia Heart problem Sister Dementia, Onset Age: 73 Sister No problems noted. Brother No problems noted. Family/Other No problems noted. Social History Alcohol intake: former Patient Tobacco Use Status: Former Tobacco user Quit Date: 2 years ago Years Smoked: 30 +/- Physical Exam Vital Signs: Last Vital Signs Pulse 62 06/19/23 14:06 BP 109/58 L 06/19/23 14:06 BMI result Body Mass Index 43.2 Chest Other: Left anterior chest approximately 3 x 3 cm lipoma. GI Other: Right flank lipoma measuring approximately 2 x 2 cm. Right abdominal wall lipomas measuring approximately 3 x 2 and 2 x 2 cm. Office Procedures Excision Details: Risks, benefits, alternatives multiple lipoma excision reviewed the patient included but not limited to bleeding, infection, recurrence, numbness, pain, scarring the patient was to proceed. All questions answered. Consent was signed. After appropriate positioning, patient's right flank and abdominal , left chest lipomas were prepped and draped in usual sterile fashion. Each was approached with a transverse incision with uneventful enucleation of lipomas. For size of the specimens, please refer to original note. Each wound was irrigated, secured hemostasis, and closed using running subcuticular 3-0 Vicryl suture followed by Steri-Strips and sterile dressings. Patient tolerated procedure well Procedure code (CPT) selection complete Office Meds lidocaine 1 %-epinephrine 1:100,000 injection solution Performing Provider: Anastacio Anderson MD Performing Location: [facility] [facility] Sur[facility] Administered by: Anastacio Anderson MD on 06/19/23 14:47 Dose Route Admin Location Dispensed Lot Number Expiration Date [facility] [employer] 20 mL Infiltration 20 mL Assessment & Plan Assessment & Plan (1) Multiple lipomas: Code(s): D17.9 - Benign lipomatous neoplasm, unspecified Plan: Patient has been given local instructions including avoiding stress activities, shower in 2 days, removing only Band-Aid leaving Steri-Strips intact, ice pack to wound, a lever Tylenol p.r.n.. Patient will see me as directed or p.r.n.. Orders: Orders AMB Excision Today D17.9 - Benign lipomatous neoplasm, unspecified Coding Level of Care Code New Pt Level 5 (19710) Diagnoses Multiple lipomas D17.9
[2023-06-19 14:06] VITALS: BP 109/58; PULSE 62; BMI 43.2
== END 2023-06-19 14:47 | disposition home or self-care (01) ==
PROVIDERS: PCP Internal Medicine; Referring Provider Internal Medicine; Visit Provider Surgery
DX: D17.1 Benign lipomatous neoplasm of skin and subcutaneous tissue of trunk (principal)
CPT/HCPCS: 11403; 11422

== ENCOUNTER 2023-06-26 11:46 | Outpatient (AMB) | payer MEDICAID, SELFPAY ==
[2023-06-26 11:55] VITALS: BP 105/58; PULSE 85
--- NOTE | 2023-06-26 11:55 | MHC.OFFVIS ---
Intake Vital Signs 06/26/23 11:55 Weight 300 lb BP 105/58 L Blood Pressure Location Rt brachial Position Sitting Pulse 85 Intake Visit Reasons: S/p Lipoma~ Rt lat mid abd Intake Note: Patient here s/p exc X3. Rt flank, Rt abd and lt chest healing well. Reports minor bruising. Denies bleeding or oozing. Shipping Clerk Required: No Accompanied by: Self / Same As Patient Allergies duloxetine Allergy (Severe, Verified 06/26/23 11:57) Nightmare baclofen [BACLOFEN] Allergy (Intermediate, Verified 06/26/23 11:57) RASH HPI HPI Comments History of Present Illness Details Patient presents for follow-up. He has no wound issues or complaints. All pathologies were benign. [facility] Medical History Peripheral vascular disease Morbid obesity Sacroiliac joint dysfunction of right side Sacroiliitis HTN (hypertension) Descending thoracic aortic dissection Ascending aortic aneurysm Leg edema SOB (shortness of breath) Peptic ulcer disease Back pain Anxiety Hx of lipoma Constipation Esophagitis Sacroiliac joint pain Sacroiliitis Hypercholesteremia GERD (gastroesophageal reflux disease) Fatty liver VALERY (obstructive sleep apnea) Pulmonary hypertension Anemia Surgical History Hx of surgical procedure (06/19/23) Hx of repair of dissecting thoracic aortic aneurysm, [place] type B Hx of colonoscopy History of esophagogastroduodenoscopy (EGD) History of carpal tunnel release of both wrists History of arthroscopy of both knees Hx of cholecystectomy Family History Father Depression Suicide Mother Diabetes Dementia Heart problem Sister Dementia, Onset Age: 73 Sister No problems noted. Brother No problems noted. Family/Other No problems noted. Social History Alcohol intake: former Patient Tobacco Use Status: Former Tobacco user Quit Date: 2 years ago Years Smoked: 30 +/- Physical Exam Vital Signs: Last Vital Signs Pulse 85 06/26/23 11:55 BP 105/58 L 06/26/23 11:55 GI Other: All incisions clean dry and intact. Healing uneventfully. Assessment & Plan Assessment & Plan (1) Multiple lipomas: Code(s): D17.9 - Benign lipomatous neoplasm, unspecified Plan Patient has been given local instructions. He has several other lipomas as well as some left axillary skin tags he wished to have excised another day which is convenient for him. Arrangements were made for this. We will see him then or p.r.n. Coding Level of Care Code Global (56135) Diagnoses Multiple lipomas D17.9
== END 2023-06-26 12:13 | disposition home or self-care (01) ==
PROVIDERS: PCP Internal Medicine; Visit Provider Surgery
DX: D17.9 Benign lipomatous neoplasm, unspecified (principal)
CPT/HCPCS: 99024

== ENCOUNTER → 2023-06-26 11:46 | Outpatient (BNVA) | payer MEDICAID, SELFPAY | PROVIDERS: PCP Internal Medicine; Visit Provider Surgery ==

== ENCOUNTER 2023-07-12 13:49 | Outpatient (AMB) | payer MEDICAID, SELFPAY ==
--- NOTE | 2023-07-12 13:54 | A.OFFVIS_ITS ---
Intake Intake Visit Reasons: BPH w/nocturia Intake Note: NEW Patient presents today to established treatment for BPH WITH NOCTURIA: Meds- Prazosin (NO LONGER TAKING) Allergies to Antibiotic- No Known Allergies Blood Thinner- Aspirin Video Network Engineer Required: No Accompanied by: Self / Same As Patient Allergies duloxetine Allergy (Severe, Verified 08/07/23 09:37) Nightmare baclofen [BACLOFEN] Allergy (Intermediate, Verified 08/07/23 09:37) RASH HPI HPI Comments History of Present Illness Details Silvestre is a 58-year-old male who presents today to the office to establish as a new patient for an evaluation of BPH with nocturia. 07/12/2023-- He presents today for an evaluation of BPH with nocturia. PMH- Hypertension, Obesity, back pain His AUA symptom score was 23. He complains of erectile dysfunction. The patient complains of daytime urinary frequency every 2 hours, nocturia 3x. feeling of incomplete bladder emptying. I have discussed avoiding dietary bladder irritants, including to cut back on caffeine usage. Evaluation today--UA--Leukocytes: negative; blood: 3 +. I have discussed reasons for blood in the urine may include but are not limited to kidney stones, cancer in the urinary tract, kidney stone disease or inflammatory conditions of the urinary tract BPH. I have discussed workup to include evaluation of the upper tracts and consideration for cystoscopy evaluation. I have reviewed the US from 03/17/2023 noted that the kidneys were with in the normal limits. Results reviewed PSA next month ? 07/12/2023 ng/mL. Plan: Cialis 5 mg daily was ordered. Continue alfusozin as prescribed. Follow-up in office Cystoscopy. [facility] Medical History Peripheral vascular disease Morbid obesity Sacroiliac joint dysfunction of right side Sacroiliitis HTN (hypertension) Descending thoracic aortic dissection Ascending aortic aneurysm Leg edema SOB (shortness of breath) Peptic ulcer disease Back pain Anxiety Hx of lipoma Constipation Esophagitis Sacroiliac joint pain Sacroiliitis Hypercholesteremia GERD (gastroesophageal reflux disease) Fatty liver VALERY (obstructive sleep apnea) Pulmonary hypertension Anemia Surgical History Status post excision of lipoma (~08/01/23) Hx of surgical procedure (06/19/23) Hx of repair of dissecting thoracic aortic aneurysm, [place] type B Hx of colonoscopy History of esophagogastroduodenoscopy (EGD) History of carpal tunnel release of both wrists History of arthroscopy of both knees Hx of cholecystectomy Family History Father Depression Suicide Mother Diabetes Dementia Heart problem Sister Dementia, Onset Age: 73 Sister No problems noted. Brother No problems noted. Family/Other No problems noted. Social History Alcohol intake: former Patient Tobacco Use Status: Former Tobacco user Quit Date: 2 years ago Years Smoked: 30 +/- Review of Systems Const All systems reviewed & are unremarkable except as noted in HPI and below Reports no additional complaints Eyes Reports no additional complaints ENT Reports no additional complaints Card Denies dyspnea Resp Denies cough and Denies dyspnea GI Reports no additional complaints Musc Reports no additional complaints Skin/Breast Denies rash and Denies unusual bruising Neuro Reports no additional complaints Psych Reports no additional complaints Endo Reports no additional complaints Saurav/Lymph Reports no additional complaints Aller/Immun Reports no additional complaints Physical Exam Const General: healthy appearing, no acute distress and well developed Nutritional Appearance: overweight Orientation/consciousness: patient oriented x3 HEENT Head: Yes normocephalic and Yes atraumatic Eyes Conjunctivae: conjunctivae normal Neck Neck: Yes normal visual inspection Chest Chest palpation & inspection: normal inspection of the chest Resp Effort & Inspection: normal respiratory effort Cardio Rate: regular rate GI Inspection: Yes normal to inspection Palpation (GI): Soft to palpation Skin General skin exam: no rashes or lesions noted Neuro General: patient oriented x3 Extrem General: No pedal edema Psych Appearance: grossly normal Affect: normal affect Results AMB Urinalysis, Automated UA Leukoctes 0 Mario/uL Last Edit by ROBERT GarnerA on 07/12/23 14:54 UA Nitrite Negative Last Edit by Manuel Ortiz [facility] on 07/12/23 14:54 UA Urobilinogen 0.2 mg/dL Last Edit by Manuel Ortiz, [facility] on 07/12/23 14:5 4 UA Protein 15 mg/dL Last Edit by Manuel Ortiz [facility] on 07/12/23 14:54 UA pH 6.0 Last Edit by Manuel Ortiz [facility] on 07/12/23 14:54 UA Blood 200 Lele/uL Last Edit by Manuel Ortiz [facility] on 07/12/23 14:54 3+ Manuel Ortiz 07/12/23 14:54 UA Specific Hobbs 1.025 Last Edit by Manuel Ortiz [facility] on 07/12/23 14: 54 UA Ketone Negative Last Edit by Manuel Ortiz [facility] on 07/12/23 14:54 UA Bilirubin 0 mg/dL Last Edit by Manuel Ortiz [facility] on 07/12/23 14:54 UA Glucose 0 mg/dL Last Edit by Manuel Ortiz [facility] on 07/12/23 14:54 Results Reviewed Results Reviewed: Laboratory Last Values Urine pH (Auto) 6.0 07/12/23 14:05 Specific Hobbs (Auto) 1.025 07/12/23 14:05 Urine Protein (Auto) 15 mg/dL 07/12/23 14:05 Glucose (UA)(Auto) 0 mg/dL 07/12/23 14:05 Urine Ketones (Auto) Negative 07/12/23 14:05 Urine Blood (Auto) 200 Lele/uL 07/12/23 14:05 Urine Nitrite (Auto) Negative 07/12/23 14:05 Urine Bilirubin (Auto) 0 mg/dL 07/12/23 14:05 Urine Urobilinogen (Auto) 0.2 mg/dL 07/12/23 14:05 Leukocyte Esterase (Auto) 0 Mario/uL 07/12/23 14:05 Assessment & Plan Assessment & Plan (1) Microscopic hematuria: Code(s): R31.29 - Other microscopic hematuria (2) BPH loc w urin obs/LUTS: Code(s): N40.1 - Benign prostatic hyperplasia with lower urinary tract symptoms (3) Nocturia: Code(s): R35.1 - Nocturia (4) Erectile dysfunction: Code(s): N52.9 - Male erectile dysfunction, unspecified Plan Cialis 5 mg daily was ordered. Continue alfusozin. Follow-up in office Cystoscopy. Orders: Orders AMB Urinalysis Automated 07/12/23 Z13.9 - Encounter for screening, unspecified AMB Post Void Residual by ultrasound 07/12/23 N39.8 - Other specified disorders of urinary system Medications: New tadalafil (Cialis) [id number] [facility] [id number] Member [id number] 5 mg PO DAILY 30 tabs 5RF Patient Instructions: The patient had an opportunity to ask questions regarding treatment plan. All questions were answered. Imaging, Laboratory studies and physical exam results were discussed and reviewed in detail. No major barriers to understanding were identified. The patient expressed understanding and agreement with the above treatment plan. The patient is aware they should contact our office by phone for worsening of their current condition or the appearance of new symptoms. Compliance is encouraged with any medications and followup testing that is ordered. It is a privilege to be allowed the opportunity to participate in the urologic care of your patient. If you have any questions or concerns regarding treatment for the above conditions please do not hesitate to contact me. The office telephone contact is [phone]. This note is constructed in part using voice recognition software. While every effort has been made to ensure accuracy range ecologist errors may have been included. Yours sincerely, Pati Falcon MD Coding Level of Care Code New Pt Level 4 (64755) Diagnoses Microscopic hematuria R31.29 BPH loc w urin obs/LUTS N40.1 Nocturia R35.1 Erectile dysfunction N52.9
== END 2023-07-12 15:50 | disposition home or self-care (01) ==
PROVIDERS: PCP Internal Medicine; Referring Provider Internal Medicine; Visit Provider Urology
DX: R31.29 Other microscopic hematuria (principal); N40.1 Benign prostatic hyperplasia with lower urinary tract symptoms; R35.1 Nocturia; N52.9 Male erectile dysfunction, unspecified
CPT/HCPCS: 99204

== ENCOUNTER → 2023-07-12 13:49 | Outpatient (BNVA) | payer MEDICAID, SELFPAY | PROVIDERS: PCP Internal Medicine; Referring Provider Internal Medicine; Visit Provider Urology | DX: R31.29 Other microscopic hematuria (principal); N40.1 Benign prostatic hyperplasia with lower urinary tract symptoms; R35.1 Nocturia; N52.9 Male erectile dysfunction, unspecified | CPT/HCPCS: 81003; 99202 ==

== ENCOUNTER 2023-08-01 13:42 | Outpatient (AMB) | payer MEDICAID, SELFPAY ==
--- NOTE | 2023-08-01 13:43 | MHC.OFFVIS ---
Intake Vital Signs 08/01/23 13:45 Height 5 ft 10 in BP 147/69 H Blood Pressure Location Rt brachial Position Sitting Pulse 61 Intake Visit Reasons: Exc lipomas Intake Note: This patient presents for an assessment for in-office procedure for excision of lipomas. Patient c/o; reports no changes or concerns at this time. 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: No Accompanied by: Self / Same As Patient Allergies duloxetine Allergy (Severe, Verified 08/01/23 14:07) Nightmare baclofen [BACLOFEN] Allergy (Intermediate, Verified 08/01/23 14:07) RASH Medication List - Last Reconciled 08/01/23 by Anastacio Anderson MD albuterol sulfate 90 mcg/actuation (Ventolin HFA) 2 puffs inhalation Q6H alfuzosin ER 10 mg PO DAILY amlodipine 10 mg PO DAILY aspirin (Adult Aspirin Regimen) 81 mg PO DAILY atorvastatin 40 mg PO BEDTIME budesonide-formoterol 160-4.5 mcg/actuation (Symbicort) inhalation carvedilol (Coreg) 25 mg PO BID lidocaine HCl 4% (LidaFlex) 1 patch topical BID PRN lisinopril 40 mg PO DAILY tadalafil (Cialis) 5 mg PO DAILY HPI HPI Comments History of Present Illness Details Patient is well known to me. He presents with 3 lipomas of the intra-abdominal wall and 3 skin lesions of the left axilla he wishes to have excised PFSH Medical History Peripheral vascular disease Morbid obesity Sacroiliac joint dysfunction of right side Sacroiliitis HTN (hypertension) Descending thoracic aortic dissection Ascending aortic aneurysm Leg edema SOB (shortness of breath) Peptic ulcer disease Back pain Anxiety Hx of lipoma Constipation Esophagitis Sacroiliac joint pain Sacroiliitis Hypercholesteremia GERD (gastroesophageal reflux disease) Fatty liver VALERY (obstructive sleep apnea) Pulmonary hypertension Anemia Surgical History Status post excision of lipoma (~08/01/23) Hx of surgical procedure (06/19/23) Hx of repair of dissecting thoracic aortic aneurysm, [place] type B Hx of colonoscopy History of esophagogastroduodenoscopy (EGD) History of carpal tunnel release of both wrists History of arthroscopy of both knees Hx of cholecystectomy Family History Father Depression Suicide Mother Diabetes Dementia Heart problem Sister Dementia, Onset Age: 73 Sister No problems noted. Brother No problems noted. Family/Other No problems noted. Social History Alcohol intake: former Patient Tobacco Use Status: Former Tobacco user Quit Date: 2 years ago Years Smoked: 30 +/- Physical Exam Vital Signs: Last Vital Signs Pulse 61 08/01/23 13:45 BP 147/69 H 08/01/23 13:45 GI Other: Three kimberley umbilical lipomas measuring 3 x 2, 2 x 2, 2 x 2 cm each. Extrem Other: Skin lesions measuring 2 x 1, 1 x 1, 1 x 1 cm of left axilla. Office Procedures Excision Details: Patient had risks, benefits, alternatives of lipoma excision x3, skin lesion of left axilla x3 a reviewed and included but not limited to bleeding, infection, recurrence, numbness, pain, scarring the patient was to proceed. After appropriate positioning, patient 1. % lidocaine and Betadine prep. The 3 abdominal lesions were premarked and patient underwent transverse incision over each lipoma which was uneventfully enucleated. Each wound was irrigated, secured hemostasis, and closed using running subcuticular 3-0 Vicryl suture followed by Steri-Strips sterile dressings. Size the lesions are in the H&P. Similarly a left axilla had been 1% lidocaine and Betadine prep and uneventful tangential excision of the 3 skin lesions was uneventfully performed. Wound base of each was cauterized with silver nitrate followed bacitracin and sterile dressings. Sponge, needle, instrument counts reported correct. Patient tolerated the procedure well emerged anesthesia stable condition. 41757-eqttg/arms/legs 2.1-3cm Procedure code (CPT) selection complete Office Meds lidocaine 1 %-epinephrine 1:100,000 injection solution Performing Provider: Anastacio Anderson MD Performing Location: [facility] Administered by: Anastacio Anderson MD on 08/01/23 14:45 Dose Route Admin Location Dispensed Lot Number Expiration Date [facility] Hydraulic Auto Jack Mechanic 15 mL Infiltration 15 mL Assessment & Plan Assessment & Plan (1) Multiple lipomas: Code(s): D17.9 - Benign lipomatous neoplasm, unspecified (2) Skin lesion: Code(s): L98.9 - Disorder of the skin and subcutaneous tissue, unspecified Plan: Patient has been given local instructions, including no stress activities, shower 2 days, ice pack periodically thing tomorrow, and patient will see me as directed or p.r.n.. Plan See above Orders: Orders AMB Excision Today D17.9 - Benign lipomatous neoplasm, unspecified, L98.9 - Disorder of the skin and subcutaneous tissue, unspecified Coding Level of Care Code Est Pt Level 5 (29196) Diagnoses Multiple lipomas D17.9 Skin lesion L98.9 CPT Codes Trunk/Arms/Legs - CPT: 19517-jceen/arms/legs 2.1-3cm ([id number])
[2023-08-01 13:45] VITALS: BP 147/69; PULSE 61
== END 2023-08-01 14:32 | disposition home or self-care (01) ==
PROVIDERS: PCP Internal Medicine; Visit Provider Surgery
DX: L98.9 Disorder of the skin and subcutaneous tissue, unspecified (principal); D17.1 Benign lipomatous neoplasm of skin and subcutaneous tissue of trunk; L91.8 Other hypertrophic disorders of the skin
CPT/HCPCS: 11401; 11402; 11403; 99214

== ENCOUNTER 2023-08-01 13:42 | Outpatient (REF) | payer MEDICAID, SELFPAY | END 2023-08-01 13:43 | disposition home or self-care (01) | LOC: HO.LNP 13:42 | PROVIDERS: PCP Internal Medicine; Visit Provider Surgery | DX: D17.1 Benign lipomatous neoplasm of skin and subcutaneous tissue of trunk (principal); L98.9 Disorder of the skin and subcutaneous tissue, unspecified; Z79.899 Other long term (current) drug therapy | CPT/HCPCS: 11401; 11402; 11403; 88304; 99212 ==

== ENCOUNTER 2023-08-07 09:24 | Outpatient (AMB) | payer MEDICAID, SELFPAY ==
--- NOTE | 2023-08-07 09:30 | MHC.OFFVIS ---
Intake Vital Signs 08/07/23 09:36 Height 5 ft 10 in BP 133/64 Blood Pressure Location Rt brachial Position Sitting Pulse 62 Intake Visit Reasons: s/p exc in OR & Office for Lipomas Intake Note: This patient presents for a post-op assessment status post excision of multiple lipomas. Patient c/o; reports no complaints at this time. Dramatic Reader Required: No Accompanied by: Self / Same As Patient Allergies duloxetine Allergy (Severe, Verified 08/07/23 09:37) Nightmare baclofen [BACLOFEN] Allergy (Intermediate, Verified 08/07/23 09:37) RASH HPI HPI Comments History of Present Illness Details Patient presents for follow-up. He has no wound issues or complaints. Pathology is benign. [facility] History Peripheral vascular disease Morbid obesity Sacroiliac joint dysfunction of right side Sacroiliitis HTN (hypertension) Descending thoracic aortic dissection Ascending aortic aneurysm Leg edema SOB (shortness of breath) Peptic ulcer disease Back pain Anxiety Hx of lipoma Constipation Esophagitis Sacroiliac joint pain Sacroiliitis Hypercholesteremia GERD (gastroesophageal reflux disease) Fatty liver VALERY (obstructive sleep apnea) Pulmonary hypertension Anemia Surgical History Status post excision of lipoma (~08/01/23) Hx of surgical procedure (06/19/23) Hx of repair of dissecting thoracic aortic aneurysm, [place] type B Hx of colonoscopy History of esophagogastroduodenoscopy (EGD) History of carpal tunnel release of both wrists History of arthroscopy of both knees Hx of cholecystectomy Family History Father Depression Suicide Mother Diabetes Dementia Heart problem Sister Dementia, Onset Age: 73 Sister No problems noted. Brother No problems noted. Family/Other No problems noted. Social History Alcohol intake: former Patient Tobacco Use Status: Former Tobacco user Quit Date: 2 years ago Years Smoked: 30 +/- Physical Exam Vital Signs: Last Vital Signs Pulse 62 08/07/23 09:36 BP 133/64 08/07/23 09:36 GI Other: Abdomen soft. All wounds clean dry and intact healing uneventfully. Assessment & Plan Assessment & Plan (1) Multiple lipomas: Code(s): D17.9 - Benign lipomatous neoplasm, unspecified Plan Patient has been given local instructions, and will follow-up p.r.n. Coding Level of Care Code Global (35665) Diagnoses Multiple lipomas D17.9
[2023-08-07 09:36] VITALS: BP 133/64; PULSE 62
== END 2023-08-07 09:53 | disposition home or self-care (01) ==
PROVIDERS: PCP Internal Medicine; Visit Provider Surgery
DX: D17.9 Benign lipomatous neoplasm, unspecified (principal)
CPT/HCPCS: 99024

== ENCOUNTER → 2023-08-07 09:24 | Outpatient (BNVA) | payer MEDICAID, SELFPAY | PROVIDERS: PCP Internal Medicine; Visit Provider Surgery | DX: D17.9 Benign lipomatous neoplasm, unspecified (principal) | CPT/HCPCS: 99212 ==

== ENCOUNTER 2023-10-06 14:50 | Outpatient (AMB) | payer MEDICAID, SELFPAY ==
--- NOTE | 2023-10-06 15:05 | A.OFFVIS_ITS ---
Intake Intake Visit Reasons: cysto Intake Note: Patient presents today for a CYSTOSCOPY Procedure: Meds: None Allergies to Antibiotic: No Known Allergies Blood Thinner: None Urinalysis test clear for Cysto? YES Disposable Uro-G Cystoscope Cannula: Lot: [id number] Exp: 01/08/2025 Ticket Manager Required: No Accompanied by: Self / Same As Patient Allergies duloxetine Allergy (Severe, Verified 10/06/23 15:07) Nightmare baclofen [BACLOFEN] Allergy (Intermediate, Verified 10/06/23 15:07) RASH HPI HPI Comments History of Present Illness Details Silvestre is a 58-year-old male who presents today to the office for office cystoscopy. He ana maria initially evaluated on 07/12/23 as a new patient for an evaluation of BPH with nocturia. LV--07/12/2023--He presents today for an evaluation of BPH with nocturia. PMH- Hypertension, Obesity, back pain His AUA symptom score was 23. He complains of erectile dysfunction. The patient complains of daytime urinary frequency every 2 hours, nocturia 3x. feeling of incomplete bladder emptying. I have discussed avoiding dietary bladder irritants, including to cut back on caffeine usage. I have reviewed the US from 03/17/2023 noted that the kidneys were with in the normal limits. Results reviewed PSA next month ? 07/12/2023 ng/mL. 10/06/23--Cystoscopy findings: prostatic urethra bilobar enlargement, bulbous urethra WNL, no suspicious bladder lesions visualized CT imaging reviewed The patient complains of right testicular pain - exam no testicular swelling or scrotal cellulitis or erythema Plan: 10/06/23--Cialis 5 mg daily Add Viagra 100mg on demand Continue alfusozin as prescribed. Scrotal US for right testicular pain PFSH Medical History Peripheral vascular disease Morbid obesity Sacroiliac joint dysfunction of right side Sacroiliitis HTN (hypertension) Descending thoracic aortic dissection Ascending aortic aneurysm Leg edema SOB (shortness of breath) Peptic ulcer disease Back pain Anxiety Hx of lipoma Constipation Esophagitis Sacroiliac joint pain Sacroiliitis Hypercholesteremia GERD (gastroesophageal reflux disease) Fatty liver VALERY (obstructive sleep apnea) Pulmonary hypertension Anemia Surgical History Status post excision of lipoma (~08/01/23) Hx of surgical procedure (06/19/23) Hx of repair of dissecting thoracic aortic aneurysm, [place] type B Hx of colonoscopy History of esophagogastroduodenoscopy (EGD) History of carpal tunnel release of both wrists History of arthroscopy of both knees Hx of cholecystectomy Family History Father Depression Suicide Mother Diabetes Dementia Heart problem Sister Dementia, Onset Age: 73 Sister No problems noted. Brother No problems noted. Family/Other No problems noted. Social History Alcohol intake: former Patient Tobacco Use Status: Former Tobacco user Quit Date: 2 years ago Years Smoked: 30 +/- Office Procedures Cystoscopy Consent Discussed risk and benefit or proposed procedure with the patient. Information consent for procedure given to the patient. Discussed technical aspects, risks, benefits and alternatives in full. Addressed all of the patient's questions and concerns regarding the procedure. The patient demonstrated knowledge and understanding. They wish to proceed with this procedure. Preparation The patient was prepped in the usual manner. A road cleaner was present and in the room. Genitalia was prepped with betadine solution in a sterile manner. Lidocaine Jelly 2% was placed into the urethra and 16Fr flexible Olympus cystoscope was inserted into the meatus after adequate lubrication. Procedure Time out per protocol performed. Bladder Inspection Bladder Inspection: The bladder was inspected in its entirety with utilization retroflexion displaying: Tumor(s): none visualized Trabeculation: mild/moderate Mucosal Erthema: N/A Orifices: normal shape and position Urethra: normal Cystoscopy findings: prostatic urethra bilobar enlargement, bulbous urethra WNL, no suspicious bladder lesions visualized [id number] DISPOSABLE SCOPE URO-G FLEXIBLE SCOPE Procedure code (CPT) selection complete Office Meds lidocaine HCl 2 % mucosal jelly in applicator Performing Provider: Pati Falcon MD Performing Location[facility] Administered by: Dung Pierre LPN on 10/06/23 15:13 Dose Route Admin Location Dispensed Lot Number Expiration Date ND Data Analyst Report Writer 10 mL intra-urethral 20 mL naproxen 500 mg tablet Performing Provider: Pati Falcon MD Performing Location: [facility] Administered by: Dung Pierre LPN on 10/06/23 15:13 Dose Route Admin Location Dispensed Lot Number Expiration Date ND Data Analyst Report Writer 500 mg PO 1 tab ciprofloxacin HCl 500 mg tablet Performing Provider: Pati Falcon MD Performing Location: [facility] Administered by: Dung Pierre LPN on 10/06/23 15:13 Dose Route Admin Location Dispensed Lot Number Expiration Date NDC Data Analyst Report Writer 500 mg PO 1 tab Results AMB Urinalysis, Automated UA Leukoctes 0 Mario/uL Last Edit by NISA Garner on 10/06/23 15:09 UA Nitrite Negative Last Edit by NISA Garner on 10/06/23 15:09 UA Urobilinogen 0.2 mg/dL Last Edit by NISA Garner on 10/06/23 15:0 9 UA Protein 15 mg/dL Last Edit by NISA Garner on 10/06/23 15:09 UA pH 6.0 Last Edit by NISA Garner on 10/06/23 15:09 UA Blood 200 Lele/uL Last Edit by NISA Garner on 10/06/23 15:09 3+ Manuel Ortiz 10/06/23 15:09 UA Specific Bent 1.025 Last Edit by NISA Garner on 10/06/23 15: 09 UA Ketone Negative Last Edit by NISA Garner on 10/06/23 15:09 UA Bilirubin 0 mg/dL Last Edit by NISA Garner on 10/06/23 15:09 UA Glucose 0 mg/dL Last Edit by NISA Garner on 10/06/23 15:09 Results Reviewed Results Reviewed: Laboratory Last Values Urine pH (Auto) 6.0 10/06/23 15:08 Specific Bent (Auto) 1.025 10/06/23 15:08 Urine Protein (Auto) 15 mg/dL 10/06/23 15:08 Glucose (UA)(Auto) 0 mg/dL 10/06/23 15:08 Urine Ketones (Auto) Negative 10/06/23 15:08 Urine Blood (Auto) 200 Lele/uL 10/06/23 15:08 Urine Nitrite (Auto) Negative 10/06/23 15:08 Urine Bilirubin (Auto) 0 mg/dL 10/06/23 15:08 Urine Urobilinogen (Auto) 0.2 mg/dL 10/06/23 15:08 Leukocyte Esterase (Auto) 0 Mario/uL 10/06/23 15:08 Assessment & Plan Assessment & Plan (1) Testicular pain, right: Code(s): N50.811 - Right testicular pain (2) Microscopic hematuria: Code(s): R31.29 - Other microscopic hematuria (3) BPH loc w urin obs/LUTS: Code(s): N40.1 - Benign prostatic hyperplasia with lower urinary tract symptoms Plan Cialis 5 mg daily Add Viagra 100mg on demand Continue alfusozin as prescribed. Scrotal US for right testicular pain Orders: Orders AMB Urinalysis Automated 10/06/23 Z13.9 - Encounter for screening, unspecified AMB Cystoscopy 10/06/23 R35.1 - Nocturia, R31.29 - Other microscopic hematuria, N40.1 - Benign prostatic hyperplasia with lower urinary tract symptoms US scrotum 10/06/23 N50.811 - Right testicular pain Coding Level of Care Code Est Pt Level 4 (67651) Diagnoses Testicular pain, right N50.811 Microscopic hematuria R31.29 BPH loc w urin obs/LUTS N40.1 CPT Codes Cystoscopy - CPT: 49126-Iidwqqqumn ([id number])
== END 2023-10-06 16:01 | disposition home or self-care (01) ==
PROVIDERS: PCP Internal Medicine; Referring Provider Internal Medicine; Visit Provider Urology
DX: N50.811 Right testicular pain (principal); N40.1 Benign prostatic hyperplasia with lower urinary tract symptoms; R31.29 Other microscopic hematuria
CPT/HCPCS: 52000; 99214

== ENCOUNTER → 2023-10-06 14:50 | Outpatient (BNVA) | payer MEDICAID, SELFPAY | PROVIDERS: PCP Internal Medicine; Visit Provider Urology | DX: N50.811 Right testicular pain (principal); N40.1 Benign prostatic hyperplasia with lower urinary tract symptoms; R31.29 Other microscopic hematuria | CPT/HCPCS: 52000; 81003; 99212 ==

== ENCOUNTER 2023-10-25 13:41 | Outpatient (REF) | payer MEDICAID, SELFPAY ==
--- NOTE | ~2023-10-25 | US_ITS ---
EXAMINATION: US SCROTUM CLINICAL INFORMATION: Right testicular pain. COMPARISON: Ultrasound scrotum 05/01/2015. TECHNIQUE: A sonogram of the scrotum was performed assessing gould-scale appearance and color Doppler flow. Spectral Doppler analysis of the arterial and venous flow were performed in the testes bilaterally. FINDINGS: RIGHT: Right testicle measures 4.6 x 2 x 2.8 cm, volume 13.5 mL. No focal testicular parenchymal lesions are visualized. There is tubular ectasia of the rete testes. Spectral Doppler analysis of the arterial and venous flow is normal in the right testis. Right epididymal head is normal in size. A 6 mm cyst is present in the epididymal head. No right hydrocele or varicocele is seen. Right epididymal Doppler flow is normal. LEFT: Left testicle measures 4.7 x 2 x 3.2 cm, volume 15.7 mL. No focal testicular parenchymal lesions are visualized. Spectral Doppler analysis of the arterial and venous flow is normal in the left testis. Left epididymal head is normal in size. No left varicocele is seen. A tiny left hydrocele is present. Left epididymal Doppler flow is normal. US/US scrotum IMPRESSION: No significant abnormality is seen.
== END 2023-10-25 13:42 | disposition home or self-care (01) ==
LOC: HO.US 13:41
PROVIDERS: PCP Internal Medicine; Referring Provider Urology; Visit Provider Family Medicine
DX: N50.811 Right testicular pain (principal)
CPT/HCPCS: 76870

== ENCOUNTER 2024-01-15 08:11 | Outpatient (AMB) | payer MEDICAID, SELFPAY ==
--- NOTE | 2024-01-15 08:20 | A.OFFVIS_ITS ---
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 Accompanied by: Self / Same As Patient Allergies duloxetine Allergy (Severe, Verified 01/15/24 08:21) Nightmare baclofen [BACLOFEN] Allergy (Intermediate, Verified 01/15/24 08:21) RASH Medication List - Last Reconciled 01/15/24 by Pati Falcon MD albuterol sulfate 90 mcg/actuation (Ventolin HFA) 2 puffs inhalation Q6H alfuzosin ER 10 mg PO DAILY amlodipine 10 mg PO DAILY aspirin (Adult Aspirin Regimen) 81 mg PO DAILY atorvastatin 40 mg PO BEDTIME budesonide-formoterol 160-4.5 mcg/actuation (Symbicort) inhalation carvedilol (Coreg) 25 mg PO BID lidocaine HCl 4% (LidaFlex) 1 patch topical BID PRN lisinopril 40 mg PO DAILY sildenafil 100 mg PO .PRN PRN tadalafil (Cialis) 5 mg PO DAILY HPI Comments Details: 01/15/2024-- Silvestre is a 58-year-old male who has been evaluated due to microscopic hematuria, erectile dysfunction, chronic testicular pain. The patient has chronic back pain, due to sciatica per patient. Workup for microscopic hematuria including imaging of urinary tract in office cystoscopy, 10/06/2023 was negative for urinary tract masses or calculi disease. The patient is prescribed Cialis 5 mg daily with Viagra 100 mg on demand, instructed to use no more than 2 times a week. I have discussed scrotal ultrasound results- 10/25/2023 no testicular mass or signs of infection. Silvestre states he has not using the Cialis 5 mg daily and has not used the Viagra as yet. Discussed Motrin p.r.n. for testicular pain. Continue alfuzosin. Follow-up in 1 year PSA prior. Review of chart: 10/06/23--Silvestre is a 58-year-old male who presents today to the office for office cystoscopy. He ana maria initially evaluated on 07/12/23 as a new patient for an evaluation of BPH with nocturia. LV--07/12/2023--He presents today for an evaluation of BPH with nocturia. PMH- Hypertension, Obesity, back pain His AUA symptom score was 23. He complains of erectile dysfunction. The patient complains of daytime urinary frequency every 2 hours, nocturia 3x. feeling of incomplete bladder emptying. I have discussed avoiding dietary bladder irritants, including to cut back on caffeine usage. I have reviewed the US from 03/17/2023 noted that the kidneys were with in the normal limits. Results reviewed PSA next month ? 07/12/2023 ng/mL. Cialis 5 mg daily Add Viagra 100mg on demand, Continue alfusozin as prescribed. Scrotal US for right testicular pain 10/06/23--Cystoscopy findings: prostatic urethra bilobar enlargement, bulbous urethra WNL, no suspicious bladder lesions visualized CT imaging reviewed- 06/12/2023-no acute finding. The patient complains of right testicular pain - exam no testicular swelling or scrotal cellulitis or erythema PFSH Medical History Peripheral vascular disease Morbid obesity Sacroiliac joint dysfunction of right side Sacroiliitis HTN (hypertension) Descending thoracic aortic dissection Ascending aortic aneurysm Leg edema SOB (shortness of breath) Peptic ulcer disease Back pain Anxiety Hx of lipoma Constipation Esophagitis Sacroiliac joint pain Sacroiliitis Hypercholesteremia GERD (gastroesophageal reflux disease) Fatty liver VALERY (obstructive sleep apnea) Pulmonary hypertension Anemia Surgical History Status post excision of lipoma (~08/01/23) Hx of surgical procedure (06/19/23) Hx of repair of dissecting thoracic aortic aneurysm, Alexander type B Hx of colonoscopy History of esophagogastroduodenoscopy (EGD) History of carpal tunnel release of both wrists History of arthroscopy of both knees Hx of cholecystectomy Family History Father Depression Suicide Mother Diabetes Dementia Heart problem Sister Dementia, Onset Age: 73 Sister No problems noted. Brother No problems noted. Family/Other No problems noted. Social History Alcohol intake: former Patient Tobacco Use Status: Former Tobacco user Quit Date: 2 years ago Years Smoked: 30 +/- Review of Systems Const All systems reviewed & are unremarkable except as noted in HPI and below Reports no additional complaints Eyes Reports no additional complaints ENT Reports no additional complaints Card Reports no additional complaints Resp Reports no additional complaints GI Reports no additional complaints Reports as per HPI Musc Reports no additional complaints Skin/Breast Reports system reviewed and no additional complaints, except as documented Neuro Reports no additional complaints Psych Reports no additional complaints Endo Reports no additional complaints Saurav/Lymph Reports no additional complaints Aller/Immun Reports no additional complaints Office Procedures Post Void Residual Post Residual Void Post Void Residual (PVR): [id number] Void Residual by ultrasound Results AMB Urinalysis, Automated UA Leukoctes 0 Mario/uL Last Edit by NISA Garner on 01/15/24 08:34 UA Nitrite Negative Last Edit by NISA Garner on 01/15/24 08:34 UA Urobilinogen 0.2 mg/dL Last Edit by NISA Garner on 01/15/24 08:3 4 UA Protein 30 mg/dL Last Edit by NISA Garner on 01/15/24 08:34 1+ Manuel Ortiz 01/15/24 08:34 UA pH 6.0 Last Edit by NISA Garner on 01/15/24 08:34 UA Blood 200 Lele/uL Last Edit by NISA Garner on 01/15/24 08:34 3+ Manuel Ortiz 01/15/24 08:34 UA Specific [place] 1.020 Last Edit by NISA Garner on 01/15/24 08: 34 UA Ketone Negative Last Edit by NISA Garner on 05/20/24 08:34 UA Bilirubin 1 mg/dL Last Edit by NISA Garner on 01/15/24 08:34 UA Glucose 0 mg/dL Last Edit by NISA Garner on 01/15/24 08:34 Results Reviewed Results Reviewed: Date of Service: 10/25/23 US SCROTUM CLINICAL INFORMATION: Right testicular pain. COMPARISON: Ultrasound scrotum 05/01/2015. TECHNIQUE: A sonogram of the scrotum was performed assessing gould-scale appearance and color Doppler flow. Spectral Doppler analysis of the arterial and venous flow were performed in the testes bilaterally. FINDINGS: RIGHT: Right testicle measures 4.6 x 2 x 2.8 cm, volume 13.5 mL. No focal testicular parenchymal lesions are visualized. There is tubular ectasia of the rete testes. Spectral Doppler analysis of the arterial and venous flow is normal in the right testis. Right epididymal head is normal in size. A 6 mm cyst is present in the epididymal head. No right hydrocele or varicocele is seen. Right epididymal Doppler flow is normal. LEFT: Left testicle measures 4.7 x 2 x 3.2 cm, volume 15.7 mL. No focal testicular parenchymal lesions are visualized. Spectral Doppler analysis of the arterial and venous flow is normal in the left testis. Left epididymal head is normal in size. No left varicocele is seen. A tiny left hydrocele is present. Left epididymal Doppler flow is normal. IMPRESSION: No significant abnormality is seen. Date of Service: 06/12/23 EXAMINATION: CT ABDOMEN AND PELVIS WITHOUT CONTRAST CLINICAL INFORMATION: Right flank pain. COMPARISON: 05/04/2022 TECHNIQUE: Multidetector volumetric imaging was performed from the superior aspect of the liver through the pubic symphysis. Sagittal and coronal reformatted images were obtained on the technologist's workstation. This CT examination was performed using dose optimization techniques as appropriate, variously including the following: *Automated exposure control *Adjustment of mA and/or kV according to patient size (this includes techniques or standardized protocols for targeted exams where dose is matched to indication/reason for exam; i.e. extremities or head) *Use of iterative reconstruction technique DLP: 981 mGy-cm FINDINGS: LUNG BASES: Trace pericardial effusion. LIVER, GALLBLADDER, AND BILIARY TREE: The noncontrast liver is normal in size, shape, and attenuation. No biliary ductal dilatation is present. The gallbladder is surgically absent. PANCREAS: Unremarkable. SPLEEN: Unremarkable. ADRENAL GLANDS: Unremarkable. KIDNEYS AND URETERS: The kidneys are symmetric in size. No renal or ureteral calculus. No hydronephrosis or perinephric stranding. BLADDER: Unremarkable. GASTROINTESTINAL TRACT: The small and large bowel are unremarkable. The appendix is unremarkable. ABDOMINAL WALL: Fat-containing bilateral inguinal hernias. LYMPH NODES: No bulky abdominal or pelvic lymphadenopathy. VASCULAR: Status post endovascular stent grafting of the descending aorta, abdominal aorta extending into the common iliac arteries bilaterally. Evaluation of the vasculature is limited by the lack of intravenous contrast. The descending thoracic aorta measures approximately 5.1 cm in diameter similar to prior. PELVIC VISCERA: Unremarkable. OSSEOUS STRUCTURES: No destructive bone lesions. IMPRESSION: No acute abnormality in the abdomen or pelvis. Assessment & Plan Assessment & Plan (1) Testicular pain, right: Code(s): N50.811 - Right testicular pain Category: Medical (2) Microscopic hematuria: Code(s): R31.29 - Other microscopic hematuria Category: Medical (3) BPH loc w urin obs/LUTS: Code(s): N40.1 - Benign prostatic hyperplasia with lower urinary tract symptoms Category: Medical (4) Proteinuria: Code(s): R80.9 - Proteinuria, unspecified Category: Medical (5) Screening PSA (prostate specific antigen): Code(s): Z12.5 - Encounter for screening for malignant neoplasm of prostate Category: Medical Plan Patient states he is not using Cialis or Viagra at this time. Continue alfuzosin 10 mg daily Motrin p.r.n. testicular pain. PSA screening follow-up in 1 year Orders: Orders AMB Post Void Residual by ultrasound Today N39.8 - Other specified disorders of urinary system PSA,Total (Free>4and<10) 11 Months Z12.5 - Encounter for screening for malignant neoplasm of prostate AMB Urinalysis Automated Today Z13.9 - Encounter for screening, unspecified Referrals Nephrology Referral R80.9 - Proteinuria, unspecified Medications: Refilled alfuzosin ER administer after the same meal each day 10 mg PO DAILY 90 tabs 2RF Patient Instructions: The patient had an opportunity to ask questions regarding treatment plan. The patient expressed understanding and agreement with the above treatment plan. The patient is aware they should contact our office by phone for worsening of their current condition or the appearance of new symptoms. Compliance is encouraged with any medications and followup testing that is ordered. It is a privilege to be allowed the opportunity to participate in the urologic care of your patient. If you have any questions or concerns regarding treatment for the above conditions please do not hesitate to contact me. The office telephone contact is [phone]. This note is constructed in part using voice recognition software. While every effort has been made to ensure accuracy design chief errors may have been included. Yours sincerely, Pati Falcon MD Coding Level of Care Code Est Pt Level 4 (47152) Diagnoses Testicular pain, right N50.811 Microscopic hematuria R31.29 BPH loc w urin obs/LUTS N40.1 Proteinuria R80.9 Screening PSA (prostate specific antigen) Z12.5 CPT Codes Post Residual Void - PVR CPT Code: 21045-Ytfn Void Residual by ultrasound ([id number])
== END 2024-01-15 08:54 | disposition home or self-care (01) ==
PROVIDERS: PCP Internal Medicine; Visit Provider Urology
DX: N50.811 Right testicular pain (principal); R31.29 Other microscopic hematuria; N40.1 Benign prostatic hyperplasia with lower urinary tract symptoms; R80.9 Proteinuria, unspecified; Z12.5 Encounter for screening for malignant neoplasm of prostate; Z13.9 Encounter for screening, unspecified
CPT/HCPCS: 99214

== ENCOUNTER → 2024-01-15 08:11 | Outpatient (BNVA) | payer MEDICAID, SELFPAY | PROVIDERS: PCP Internal Medicine; Visit Provider Urology | DX: N40.1 Benign prostatic hyperplasia with lower urinary tract symptoms (principal); N13.8 Other obstructive and reflux uropathy; N50.811 Right testicular pain; R31.29 Other microscopic hematuria; R80.9 Proteinuria, unspecified; Z12.5 Encounter for screening for malignant neoplasm of prostate | CPT/HCPCS: 51798; 81003; 99212 ==

== ENCOUNTER 2024-01-30 09:58 | Outpatient (AMB) | payer MEDICAID, SELFPAY ==
[2024-01-30 09:54] VITALS: BP 118/66; PULSE 67; O2SAT 95; BMI 43.3
--- NOTE | 2024-01-30 09:54 | HO.NEPHOV_ITS ---
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 Silvestre is a pleasant 58-year-old man with a history of obesity, hypertension who was found to have proteinuria by dipstick. He has been referred for the evaluation of proteinuria. He has a history of chronic back pain. MRI in 2022 showed mild to moderate lumbar spondylosis. No severe central canal stenosis or foraminal stenosis within the lumbar spine. He is being seen by pain management. He is on Lyrica. In addition he is also on ibuprofen 200 mg 3 times a day. Silvestre has a history of hypertension. He is on amlodipine 10 mg, carvedilol 25 mg b.i.d. and lisinopril 40 mg q.d.. After taking his medications he feels washed out. Today he has not taken his medications yet. However blood pressure was 118 /66 Renal function has been stable with a creatinine 0.71 in 06/16/2023. Urinalysis showed trace protein. No blood. Renal ultrasonogram was unremarkable. He has a history of aortic dissection. Type B aortic dissection status post interval stent graft repair.(2020). Being followed by Dr. Marino In 2020 CTA showed patent renal arteries on both sides without stenosis [facility] Medical History Peripheral vascular disease Morbid obesity Sacroiliac joint dysfunction of right side Sacroiliitis HTN (hypertension) Descending thoracic aortic dissection Ascending aortic aneurysm Leg edema SOB (shortness of breath) Peptic ulcer disease Back pain Anxiety Hx of lipoma Constipation Esophagitis Sacroiliac joint pain Sacroiliitis Hypercholesteremia GERD (gastroesophageal reflux disease) Fatty liver VALERY (obstructive sleep apnea) Pulmonary hypertension Anemia Surgical History Status post excision of lipoma (~08/01/23) Hx of surgical procedure (06/19/23) Hx of repair of dissecting thoracic aortic aneurysm, Alexander type B Hx of colonoscopy History of esophagogastroduodenoscopy (EGD) History of carpal tunnel release of both wrists History of arthroscopy of both knees Hx of cholecystectomy Family History Father Depression Suicide Mother Diabetes Dementia Heart problem Sister Dementia, Onset Age: 73 Sister No problems noted. Brother No problems noted. Family/Other No problems noted. Social History Alcohol intake: former Patient Tobacco Use Status: Former Tobacco user Years Smoked: 30 +/- Review of Systems Const Denies anorexia, Denies fever(s) and Denies weakness Eyes Denies blurry vision Card Denies no additional complaints and Denies dyspnea Resp Reports no additional complaints, Reports cough and Denies dyspnea GI Denies melena and Denies diarrhea Denies hematuria Musc Denies tingling Skin/Breast Denies rash Neuro Denies focal weakness, Denies tingling, Denies tremor(s) and Denies weakness Physical Exam Vital Signs: Last Vital Signs Pulse 67 01/30/24 09:54 BP 118/66 01/30/24 09:54 Pulse Ox 95 01/30/24 09:54 Oxygen Delivery Method Room Air 01/30/24 09:54 BMI result Body Mass Index 43.3 Const General: comfortable Nutritional Appearance: well nourished Orientation/consciousness: patient oriented x3 HEENT Head: No normal to inspection Mouth: moist mucous membranes Neck Neck: Yes supple and Yes no JVD Resp Auscultation: clear to auscultation bilaterally, no rales and rub present Cardio Jugular venous distension: no JVD Palpation: no palpable S3 and no palpable S4 Heart sounds: no rubs GI Palpation (GI): Soft to palpation and nontender Percussion: No Fluid wave present General: Yes no CVA tenderness Back/Spine/Pelvis Back: no CVA tenderness Skin General skin exam: no rashes or lesions noted Neuro General: patient oriented x3 Extrem General: Yes no pedal edema and No clubbing Results Reviewed Results Reviewed: Creatinine 0.71 in 06/16/2023 Nephrology Results: No Data to Display Assessment & Plan Assessment & Plan (1) Proteinuria: Code(s): R80.9 - Proteinuria, unspecified Category: Medical (2) HTN (hypertension): Code(s): I10 - Essential (primary) hypertension Category: Medical Plan . Silvestre is a 50-year-old man with obesity and hypertension with minimal proteinuria. Proteinuria can be related to both hypertensive kidney disease as well as obesity. Urine sediments our plan therefore glomerular nephritis seems unlikely. Workup initiated for the proteinuria. He will benefit from weight loss. Blood pressure needs to be maintained less than 130/80. History of hypertension setting obesity. Even without taking his medications today's blood pressures are rather low. He is having lightheadedness after taking his medications and I suspect he has episodes of hypotension. I will obtain a 24 hour ABPM and prior to adjusting his medications. Chronic low back pain. Follow up with pain clinic. He is on ibuprofen 800 mg 3 times a day. He is at high risk for [facility] due to the combination of high dose of NSAIDs and lisinopril. Since he is unable to discontinue ibuprofen I would discontinue lisinopril and use alternate antihypertensive agents. Orders: Orders UA and rflx microscopic Today R80.9 - Proteinuria, unspecified Basic Metabolic Panel Today R80.9 - Proteinuria, unspecified Creatinine Urine Today R80.9 - Proteinuria, unspecified Total Protein Urine Random Today R80.9 - Proteinuria, unspecified AMB 24 Hour Blood Pressure Monitor PLACEMENT Today I10 - Essential (primary) hypertension Coding Level of Care Code New Pt Level 4 (40232) Diagnoses Proteinuria R80.9 HTN (hypertension) I10
== END 2024-01-30 10:35 | disposition home or self-care (01) ==
PROVIDERS: PCP Internal Medicine; Referring Provider Urology; Visit Provider Internal Medicine Hypertension Specialist
DX: R80.9 Proteinuria, unspecified (principal); I10 Essential (primary) hypertension
CPT/HCPCS: 99204

== ENCOUNTER → 2024-01-30 09:58 | Outpatient (BNVA) | payer MEDICAID, SELFPAY | PROVIDERS: PCP Internal Medicine; Referring Provider Urology; Visit Provider Internal Medicine Hypertension Specialist | DX: R80.9 Proteinuria, unspecified (principal); I10 Essential (primary) hypertension; E66.9 Obesity, unspecified; Z68.41 Body mass index [BMI] 40.0-44.9, adult | CPT/HCPCS: 99202 ==

== ENCOUNTER → 2024-01-31 10:20 | Outpatient (BNVA) | payer MEDICAID, SELFPAY | PROVIDERS: PCP Internal Medicine; Visit Provider Internal Medicine Hypertension Specialist ==

== ENCOUNTER 2024-02-01 09:12 | Outpatient (REF) | payer MEDICAID, SELFPAY ==
[2024-02-01 10:43] LABS: Appearance Urine Clear; Color Urine Yellow; Glucose Urine UA Negative (Negative); Leukocyte Esterase Urine Negative (Negative); Nitrite Urine Negative (Negative); Specific Gravity - Urine 1.025 (1.005-1.025); UMIC TRIGGER UA YES; Urine Blood Moderate (2+) (Negative); Urine Ketones Negative (Negative); Urine Protein 30 (1+) mg/dL (Neg-Trace)
[2024-02-01 10:49] LABS: Bacteria Urine None Seen (None Seen); Hyaline Casts Urine 0-2 /LPF (0-2); RBC Urine >20 /HPF (0-2); Squamous Epithelial Cell Urine 0-2 /HPF (0-2); WBC Urine 0-5 /HPF (0-5)
[2024-02-01 11:02] LABS: Anion Gap 13 (12-20); Blood Urea Nitrogen 8 mg/dL (9-16); Calcium 8.7 mg/dL (8.4-10.2); Carbon Dioxide 24 mmol/L (22-29); Chloride 108 mmol/L (96-108); Estimated Glomerular Filt Rate > 60; Glucose Random 108 mg/dL (60-115); Potassium 3.8 mmol/L (3.3-5.1); Sodium 141 mmol/L (135-145)
[2024-02-01 11:15] LABS: Creatinine Urine 224.39 mg/dL; Total Protein Urine Random 28 mg/dL (<12)
== END 2024-02-01 09:13 | disposition home or self-care (01) ==
LOC: HO.LAB 09:12
PROVIDERS: PCP Internal Medicine; Visit Provider Internal Medicine Hypertension Specialist
DX: R80.9 Proteinuria, unspecified (principal); I10 Essential (primary) hypertension; R31.29 Other microscopic hematuria
CPT/HCPCS: 36415; 80048; 81001; 82570; 84156; 99212

== ENCOUNTER 2024-02-01 11:36 | Outpatient (AMB) | payer MEDICAID, SELFPAY ==
--- NOTE | 2024-02-01 11:38 | HO.NEPHOV_ITS ---
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 Silvestre is a pleasant 58-year-old man with a history of obesity, hypertension who was found to have proteinuria by dipstick. He has been referred for the evaluation of proteinuria. He has a history of chronic back pain. MRI in 2022 showed mild to moderate lumbar spondylosis. No severe central canal stenosis or foraminal stenosis within the lumbar spine. He is being seen by pain management. He is on Lyrica. In addition he is also on ibuprofen 200 mg 3 times a day. Silvestre has a history of hypertension. He is on amlodipine 10 mg, carvedilol 25 mg b.i.d. and lisinopril 40 mg q.d.. After taking his medications he feels washed out. Today he has not taken his medications yet. However blood pressure was 118 /66 Renal function has been stable with a creatinine 0.71 in 06/16/2023. Urinalysis showed trace protein. No blood. Renal ultrasonogram was unremarkable. He has a history of aortic dissection. Type B aortic dissection status post interval stent graft repair.(2020). Being followed by Dr. Marino In 2020 CTA showed patent renal arteries on both sides without stenosis 02/01/2024. Underwent a 24 hour ABPM [facility] [place] Medical History Peripheral vascular disease Morbid obesity Sacroiliac joint dysfunction of right side Sacroiliitis HTN (hypertension) Descending thoracic aortic dissection Ascending aortic aneurysm Leg edema SOB (shortness of breath) Peptic ulcer disease Back pain Anxiety Hx of lipoma Constipation Esophagitis Sacroiliac joint pain Sacroiliitis Hypercholesteremia GERD (gastroesophageal reflux disease) Fatty liver VALERY (obstructive sleep apnea) Pulmonary hypertension Anemia Surgical History Status post excision of lipoma (~08/01/23) Hx of surgical procedure (06/19/23) Hx of repair of dissecting thoracic aortic aneurysm, Alexander type B Hx of colonoscopy History of esophagogastroduodenoscopy (EGD) History of carpal tunnel release of both wrists History of arthroscopy of both knees Hx of cholecystectomy Family History Father Depression Suicide Mother Diabetes Dementia Heart problem Sister Dementia, Onset Age: 73 Sister No problems noted. Brother No problems noted. Family/Other No problems noted. Social History Alcohol intake: former Patient Tobacco Use Status: Former Tobacco user Years Smoked: 30 +/- Physical Exam Vital Signs: Last Vital Signs Pulse 72 02/01/24 11:39 BP 130/72 02/01/24 11:39 Pulse Ox 96 02/01/24 11:39 Oxygen Delivery Method Room Air 02/01/24 11:39 BMI result Body Mass Index 42.9 Const General: comfortable Nutritional Appearance: well nourished Orientation/consciousness: patient oriented x3 HEENT Head: No normal to inspection Mouth: moist mucous membranes Neck Neck: Yes supple and Yes no JVD Resp Auscultation: clear to auscultation bilaterally, no rales and rub present Cardio Jugular venous distension: no JVD Palpation: no palpable S3 and no palpable S4 Heart sounds: no rubs GI Palpation (GI): Soft to palpation and nontender Percussion: No Fluid wave present General: Yes no CVA tenderness Back/Spine/Pelvis Back: no CVA tenderness Skin General skin exam: no rashes or lesions noted Neuro General: patient oriented x3 Extrem General: Yes no pedal edema and No clubbing Office Procedures 24 B/P Monitor Interpretation CPT: 83636 24 Hour Blood Pressure Monitor Reading Procedure code (CPT) selection complete Results Reviewed Results Reviewed: 02/15/2024 Urine protein creatinine ratio of 0.125 Nephrology Results: Sodium 141 mmol/L (135-145) 02/01/24 Potassium 3.8 mmol/L (3.3-5.1) 02/01/24 Chloride 108 mmol/L (96-108) 02/01/24 Carbon Dioxide 24 mmol/L (22-29) 02/01/24 BUN 8 mg/dL (9-16) L 02/01/24 Creatinine 0.67 mg/dL (0.5-1.4) 02/01/24 Calcium 8.7 mg/dL (8.4-10.2) 02/01/24 Urine Protein 30 (1+) mg/dL (Neg-Trace) H 02/01/24 Urine Creatinine 224.39 mg/dL 02/01/24 Assessment & Plan Assessment & Plan (1) Proteinuria: Code(s): R80.9 - Proteinuria, unspecified Category: Medical (2) HTN (hypertension): Code(s): I10 - Essential (primary) hypertension Category: Medical (3) Microscopic hematuria: Code(s): R31.29 - Other microscopic hematuria Category: Medical Plan . Silvestre is a 50-year-old man with obesity and hypertension with minimal proteinuria. Proteinuria can be related to both hypertensive kidney disease as well as obesity. Urine sediments our plan therefore glomerular nephritis seems unlikely. He has minimal proteinuria with a urine protein creatinine ratio of 0.125. He will benefit from weight loss. Blood pressure needs to be maintained less than 130/80. History of hypertension in a setting obesity. 24 hour ABP and was reviewed. He has been taking Coreg 25 mg 2 tabs b.i.d.. I will switch to 20 mg b.i.d.. Switch lisinopril 40 mg from q.a.m. to q.p.m.. By spacing out the antihypertensives we should be able to avoid hypotensive episodes. Asked him to monitor his blood pressure at home he has a wrist monitor. I have asked him to bring the monitor next time so we can calibrate against office BP cuff. Chronic low back pain. Follow up with pain clinic. He is on ibuprofen 800 mg 3 times a day. He is at high risk for [facility] due to the combination of high dose of NSAIDs and lisinopril. Since he is unable to discontinue ibuprofen , we might have to discontinue lisinopril and use alternate antihypertensive agents if the serum creatinine increases. Orders: Orders Total Protein Urine Random 3 Months R31.29 - Other microscopic hematuria, R80.9 - Proteinuria, unspecified Basic Metabolic Panel 3 Months R31.29 - Other microscopic hematuria, R80.9 - Proteinuria, unspecified UA and rflx microscopic 3 Months R31.29 - Other microscopic hematuria, R80.9 - Proteinuria, unspecified Creatinine Urine 3 Months R31.29 - Other microscopic hematuria, R80.9 - Proteinuria, unspecified Coding Level of Care Code Est Pt Level 4 (83330) Diagnoses Proteinuria R80.9 HTN (hypertension) I10 Microscopic hematuria R31.29 CPT Codes - CPT: 32190 24 Hour Blood Pressure Monitor Reading ([id number])
[2024-02-01 11:39] VITALS: BP 130/72; PULSE 72; O2SAT 96; BMI 42.9
== END 2024-02-01 12:02 | disposition home or self-care (01) ==
PROVIDERS: PCP Internal Medicine; Referring Provider Internal Medicine; Visit Provider Internal Medicine Hypertension Specialist
DX: R80.9 Proteinuria, unspecified (principal); I10 Essential (primary) hypertension; R31.29 Other microscopic hematuria
CPT/HCPCS: 93790; 99214

== ENCOUNTER 2024-02-07 10:30 | Outpatient (AMB) | payer MEDICAID, SELFPAY ==
--- NOTE | 2024-02-07 10:31 | A.OFFVIS_ITS ---
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 Allergies duloxetine Allergy (Severe, Verified 02/01/24 11:39) Nightmare baclofen [BACLOFEN] Allergy (Intermediate, Verified 02/01/24 11:39) RASH Medication List - Last Reconciled 02/07/24 by Tyree Weber MD albuterol sulfate 90 mcg/actuation (Ventolin HFA) 2 puffs inhalation Q6H alfuzosin ER 10 mg PO DAILY amlodipine 10 mg PO DAILY aspirin (Adult Aspirin Regimen) 81 mg PO DAILY atorvastatin 40 mg PO BEDTIME budesonide-formoterol 160-4.5 mcg/actuation (Symbicort) inhalation carvedilol (Coreg) 25 mg PO BID lidocaine HCl 4% (LidaFlex) 1 patch topical BID PRN lisinopril 40 mg PO DAILY pregabalin 75 mg PO BID sildenafil 100 mg PO .PRN PRN tadalafil (Cialis) 5 mg PO DAILY HPI Comments Details: Silvestre comes for follow-up after a long gap. He continues to see vascular surgery at [facility] on annual basis. Currently he has not had any cardiac symptoms. He is taking all his medication and was by prescription told that he had to take Coreg 50 mg b.i.d. and he was having lightheaded episodes. On her recent nephrology visit he was told to reduce his Coreg to 25 mg b.i.d.. Since then he has been feeling well. He had a echocardiogram last March which had shown moderate ascending aortic aneurysm at 4.7 cm. He has no cardiac symptoms. He was evaluated by genetics at [facility] and there was no obvious genetic abnormality found with his ascending aortic aneurysm. [facility] Medical History Peripheral vascular disease Morbid obesity Sacroiliac joint dysfunction of right side Sacroiliitis HTN (hypertension) Descending thoracic aortic dissection Ascending aortic aneurysm Leg edema SOB (shortness of breath) Peptic ulcer disease Back pain Anxiety Hx of lipoma Constipation Esophagitis Sacroiliac joint pain Sacroiliitis Hypercholesteremia GERD (gastroesophageal reflux disease) Fatty liver VALERY (obstructive sleep apnea) Pulmonary hypertension Anemia Surgical History Status post excision of lipoma (~08/01/23) Hx of surgical procedure (06/19/23) Hx of repair of dissecting thoracic aortic aneurysm, Alexander type B Hx of colonoscopy History of esophagogastroduodenoscopy (EGD) History of carpal tunnel release of both wrists History of arthroscopy of both knees Hx of cholecystectomy Family History Father Depression Suicide Mother Diabetes Dementia Heart problem Sister Dementia, Onset Age: 73 Sister No problems noted. Brother No problems noted. Family/Other No problems noted. Social History Alcohol intake: former Patient Tobacco Use Status: Former Tobacco user Years Smoked: 30 +/- Review of Systems Const Denies chills, Denies fatigue, Denies fever(s), Denies frequent falls, Denies weakness, Denies weight gain and Denies weight loss ENT Denies dizziness Card Denies chest pain, Denies leg edema, Denies lightheadedness, Denies palpitations, Denies dyspnea, Denies dyspnea on exertion, Denies orthopnea and Denies other (loss of consciousness) Resp Denies cough, Denies dyspnea and Denies dyspnea on exertion GI Denies hematochezia and Denies change in stool character Musc Denies abnormal gait, Denies muscle weakness, Denies numbness, Denies radiating pain into limb and Denies tingling Neuro Denies abnormal gait, Denies dizziness, Denies frequent falls, Denies numbness, Denies tingling and Denies weakness Endo Denies fatigue and Denies palpitations Physical Exam Vital Signs: Last Vital Signs Pulse 61 02/07/24 10:32 BP 126/74 02/07/24 10:32 BMI result Body Mass Index 42.4 Office Procedures EKG Details: EKG shows normal sinus rhythm with nonspecific T-wave changes [id number], Complete Assessment & Plan Assessment & Plan (1) Ascending aortic aneurysm: Code(s): I71.2 - Thoracic aortic aneurysm, without rupture Category: Medical Plan: Moderate ascending aortic aneurysm which has remained stable. Follow-up echocardiogram in March and on annual basis. No indication for repair at this point time unless it crosses at 5.5 cm. There is no obvious genetic abnormality. Advised to screen his kids for ascending aortic aneurysm as well. Continue aggressive blood pressure control which is currently well optimized. Continue current regimen. Also continue low-dose aspirin therapy. Continue high-intensity statin therapy with target goal LDL less than 70 mg/dL. Aggressive management diabetes was discussed. Discussed about avoiding sudden strenuous isometric exercise. Advised to seek emergency care for sudden onset significant chest pain. (2) Descending thoracic aortic dissection: Comment: type B, being followed by vascular surgery at [facility]-S/P endovascular repair 06/2021 Code(s): I71.01 - Dissection of thoracic aorta Category: Medical Plan: Prior history of type B aortic dissection status post endovascular repair by [facility] vascular. Continue aggressive risk factor modification above. Continue follow with vascular surgery at [facility]. Will follow up in the clinic after echocardiogram in 2024 in March. Thank you for allowing me to partake in his care Orders: Orders CA echo transthoracic complete 2 Months I71.2 - Thoracic aortic aneurysm, without rupture Coding Level of Care Code Est Pt Level 4 (20014) Diagnoses Ascending aortic aneurysm I71.2 Descending thoracic aortic dissection I71.01 CPT Codes EKG - CPT: 77972-[id number], Complete ([id number])
[2024-02-07 10:32] VITALS: BP 126/74; PULSE 61; BMI 42.4
== END 2024-02-07 10:56 | disposition home or self-care (01) ==
PROVIDERS: PCP Internal Medicine; Visit Provider Internal Medicine Cardiovascular Disease
DX: I71.21 Aneurysm of the ascending aorta, without rupture (principal); I71.012 Dissection of descending thoracic aorta
CPT/HCPCS: 93010; 99214

== ENCOUNTER → 2024-02-07 10:30 | Outpatient (BNVA) | payer MEDICAID, SELFPAY | PROVIDERS: PCP Internal Medicine; Visit Provider Internal Medicine Cardiovascular Disease | DX: I71.20 Thoracic aortic aneurysm, without rupture, unspecified (principal); I71.010 Dissection of ascending aorta; Z98.890 Other specified postprocedural states | CPT/HCPCS: 93005; 99212 ==

== ENCOUNTER 2024-03-11 12:11 | Outpatient (AMB) | payer MEDICAID, SELFPAY ==
--- NOTE | 2024-03-11 12:16 | A.OFFVIS_ITS ---
Vital Signs 03/11/24 12:18 Height 5 ft 10 in Weight 290 lb BMI 41.6 BP 117/52 L Blood Pressure Location Lt brachial Position Sitting Pulse 67 Intake Visit Reasons: follow up requested by patient Intake Note: Patient request follow up due his abdominal pain. Patient cc: Right middle abdominal pain with bloating, abdominal burning sensation, and some difficulty swallowing solid and liquid, too. 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 He admitted to chills but no fever, also veda he had cough and runy nose for few days prior. Prior to symptoms had shrimp soup and chicken. He endorsed sever eheartburn and was taking tums prn, he stopped PPI of own volition 1 yr before, also taking motrin daily for back pain as well as beer once a week. In the ER, his vital signs were stable. Labs were stable. He had an abdo adina pelvic CT, which showed no acute abnormality. Chest x-ray was negative for consolidation or effusion. 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, endovascular repair of type b aortic dissection noted no acute lesions endoleak from T9 to aortic bifurcation sig spinal degen with osteophytes and loss of lumbar lordosis I saw him for f/u in office and he had worsening dysphagia with RUQ pain going into the back which I suspected was more radicular in origin he was referred to pain mx and plan was for lidocaine patches, possible abdominal cutaneous nerve block further tests: 05/2022--- EGD: erosive gastritis esophagitis possible barretts dilation to 19 mm with balloon of the esophagus Path: moderate chronic inflammation GEJ stomach with mild chronic inflammation US 06/2022 - fatty liver ectatic CBD, stable (hx of cholecystectomy) pancreas not well seen INTERIM: He has issues swallowing with water and food, 3 weeks or so, on and off similar to prior , dilaiton helped him he is taking lansoprazole OD 30 mg denies nausea, vomiting burping he has ongoing radicular pain on the right had back injection helped for short while EXAM: GENERAL: The patient is obese. edentulous VITAL SIGNS:see workflow HEENT: Nonicteric sclerae, PERRLA, EOMI. Oropharynx clear. Moist mucous membranes. Conjunctivae appear well perfused. No thyroid mass. CHEST: Chest wall is nontender. HEART: Regular rate and rhythm without murmurs. LUNGS: Clear to auscultation bilaterally. ABDOMEN: Soft, positive bowel sounds,non tender abdo today, no organomegaly.no flank tenderness SKIN: No rash, no excessive bruising, petechiae, or purpura. NEUROLOGIC: Cranial nerves II-XII intact without motor/sensory deficit. psych--nml affect Assessments 1. Esophagitis, with dysphagia-recurred 2. Constipation,not an issue now, 3. ruq pain, radicular,, seeing pain mx 4. erosive gastritis, doing well with change of PPI, reminded on using dentures 5. fatty liver--no MOLINA, LFt have been nml PLAN: 1/ increase lansoprazole to BID dosing 2/ repeat EGD with dilation [facility] Medical History Peripheral vascular disease Morbid obesity Sacroiliac joint dysfunction of right side Sacroiliitis HTN (hypertension) Descending thoracic aortic dissection Ascending aortic aneurysm Leg edema SOB (shortness of breath) Peptic ulcer disease Back pain Anxiety Hx of lipoma Constipation Esophagitis Sacroiliac joint pain Sacroiliitis Hypercholesteremia GERD (gastroesophageal reflux disease) Fatty liver VALERY (obstructive sleep apnea) Pulmonary hypertension Anemia Surgical History Status post excision of lipoma (~08/01/23) Hx of surgical procedure (06/19/23) Hx of repair of dissecting thoracic aortic aneurysm, Idalou type B Hx of colonoscopy History of esophagogastroduodenoscopy (EGD) History of carpal tunnel release of both wrists History of arthroscopy of both knees Hx of cholecystectomy Family History Father Depression Suicide Mother Diabetes Dementia Heart problem Sister Dementia, Onset Age: 73 Sister No problems noted. Brother No problems noted. Family/Other No problems noted. Social History Alcohol intake: former Patient Tobacco Use Status: Former Tobacco user Years Smoked: 30 +/- Physical Exam Vital Signs: Last Vital Signs Pulse 67 03/11/24 12:18 BP 117/52 L 03/11/24 12:18 BMI result Body Mass Index 41.6 Assessment & Plan Assessment & Plan (1) Esophagitis: Comment: EROSIVE Code(s): K20.9 - Esophagitis, unspecified Category: Medical Plan: see above Coding Level of Care Code Est Pt Level 3 (11373) Diagnoses Esophagitis K20.9
[2024-03-11 12:18] VITALS: BP 117/52; PULSE 67; BMI 41.6
== END 2024-03-11 14:10 | disposition home or self-care (01) ==
PROVIDERS: PCP Internal Medicine; Visit Provider Internal Medicine Gastroenterology
DX: K20.90 Esophagitis, unspecified without bleeding (principal)
CPT/HCPCS: 99213

== ENCOUNTER → 2024-03-11 12:11 | Outpatient (BNVA) | payer MEDICAID, SELFPAY | PROVIDERS: PCP Internal Medicine; Visit Provider Internal Medicine Gastroenterology | DX: K20.90 Esophagitis, unspecified without bleeding (principal) | CPT/HCPCS: 99212 ==

== ENCOUNTER → 2024-04-01 12:40 | Outpatient (REF) | payer MEDICAID, SELFPAY ==
--- NOTE | 2024-04-01 12:42 | CA_ITS ---
Transthoracic Echocardiogram Patient (Last, First, Middle): Silvestre Villalobos A Gender: Male Date of : 1965 Age: 58 Procedure Date: 04/01/2024 Procedure Type: Transthoracic Echocardiogram Location: OP Height: 177.8 cm Weight: 133.81 kg BSA: 2.46 m2 Heart Rate: 61 bpm BP: 122 / 70 mmHg Nurse Quality: SANDRA Referring MD: Tyree Weber MD Hydrometer Tester: Tyree Weber MD Symptoms: I71.2 - Thoracic aortic aneurysm, without rupture Study Quality: Adequate w contrast ECG Rhythm: Sinus Conclusions: - 1. Normal LV ejection fraction of 65-70% 2. Mild aortic regurgitation 3. Moderately dilated ascending aorta 4.6 cm 4. Normal RV systolic pressure 5. No gross pericardial effusion Findings Procedure Information Contrast agent, definity, is being given per protocol without apparent complications. The quality of the study was technically difficult. The study quality is limited by patients body habitus. Left Ventricle Normal left ventricular size, thickness, and systolic function. The visually estimated ejection fraction is between 65-70%. Spectral Doppler is indicative of an impaired relaxation filling pattern. Right Ventricle Moderately increased right ventricular cavity size. There is normal right ventricular systolic function. Atria The left atrium is mildly dilated. Interatrial shunt cannot be excluded. The right atrium is moderately dilated. Aortic Valve Normal aortic valve structure and function. There is no aortic valve stenosis. There is mild aortic valve regurgitation. Mitral Valve Likely normal mitral valve structure and function. There is trace mitral valve regurgitation. There is no mitral valve stenosis. Pulmonic Valve The pulmonic valve was not well visualized. Tricuspid Valve Likely normal tricuspid valve structure and function. There is trace tricuspid valve regurgitation. The right ventricular systolic pressure is normal. The right ventricular systolic pressure is 22 mmHg. Normal right atrial pressure. There is no evidence of pulmonary hypertension. Great Vessels The pulmonary artery was not well visualized. There is moderate dilatation of the ascending aorta measuring 4.60 cm. Venous The inferior vena cava is normal in size and collapses greater than 50% with inspiration. Pericardium/Pleural There is no evidence of pericardial effusion. Prior Study Comparison No significant change compared to prior study dated: 03/31/2023. Measurements 2D Linear Measurements IVSd: 0.80 0.6-0.9/0.6-1.0 cm LVIDd: 5.91 3.9-5.3/4.2-5.9 cm LVIDd Index: 2.40 2.4-3.2/2.2-3.1 cm/m2 LVIDs: 3.83 2.0-3.6 cm LVPWd: 0.60 0.7-1.1 cm LA Diam: 4.70 2.7-3.8/3.0-4.0 cm LAIDs Index: 1.91 1.5-2.3 cm/m2 LV Mass: 192.39 67-162/88-224 g LV Mass Index: 78.21 43-95/49-115 g/m2 LVOT Diam: 2.30 3.0+(-)1.3 cm 2D Systolic Function EF 4C: 66.30 >55% EF 2C: 60.30 >55% Mitral Valve MV Pk E: 0.93 MV PK A: 1.06 MV Decel Time: 231.00 E/A: 0.90 E'Lateral: 8.49 E'Medial: 5.55 E/E' Med: 16.70 E/E' Lat: 10.90 PHT: 68.00 MVA PHT: 3.24 Decel [place]: 4.01 Aortic Valve AoV Pk Nicko: 1.76 AoV Mn Nicko: 1.20 AoV VTI: 0.34 AoV Pk Grad: 12.00 Aov Mn Grad: 7.00 LEESA Cont.VTI: 2.62 AI Pk Nicko: 4.43 AI [place]: 1.18 LVOT LVOT Pk [place]: 1.05 LVOT Mn Nicko: 0.70 LVOT VTI: 0.21 LVOT Pk Grad: 4.00 LVOT Mn Grad: 3.00 LVOT Diam: 2.30 LVOT Area: 4.15 Diastolic Function MV Pk E: 0.93 MV Pk A: 1.06 E/A: 0.90 E'Medial: 5.55 E/E' Med: 16.70 E' Laterial: 8.49 E/E' Lat: 10.90 Right Ventricle TAPSE (mm): 28.70 TVS' Nicko: 20.90 Tricuspid Valve TR Pk Nicko: 2.20 TR Pk Grad: 19.00 RA Press: 3.00 RVSP: 22.00 Great Vessels Aorta Sinus of Valsalva: 3.50 2.0-3.5 cm Ao Asc: 4.60 2.1-3.4 cm Pulmonary Valve PV Pk Nicko: 0.86 Peak PV Grad: 3.00 Updated in Other Vendor System with Status of Final Tyree Weber MD electronically signed on 04/01/2024 3:50:55 PM with status of Final
== END ==
LOC: HO.CARD 12:40
PROVIDERS: PCP Internal Medicine; Visit Provider Internal Medicine Cardiovascular Disease
DX: I71.20 Thoracic aortic aneurysm, without rupture, unspecified (principal)
CPT/HCPCS: 93306; Q9957

== ENCOUNTER 2024-04-01 13:56 | Emergency (ER) | payer MEDICAID, SELFPAY ==
[2024-04-01] VITALS (8 sets, daily range): BP systolic 130–165; BP diastolic 70–82; PULSE 60–77; RESP 15–20; TEMP 36.5–36.9; O2SAT 94–98; BMI 41.6
--- NOTE | ~2024-04-01 | CT_ITS ---
EXAMINATION: CT ANGIOGRAM OF THE CHEST, ABDOMEN AND PELVIS WITHOUT AND WITH CONTRAST CLINICAL INFORMATION: Chest pain and history of abdominal aortic aneurysm COMPARISON: CTA chest abdomen and pelvis 05/04/2022 TECHNIQUE: Multidetector volumetric CT imaging of the chest, abdomen, and pelvis was performed before and after the administration of 85 mL of Omnipaque 350 intravenous contrast without immediate adverse reactions. DOSE LOWERING TECHNIQUES: This CT examination was performed using dose optimization techniques as appropriate, variously including the following: - Automated exposure control - Adjustment of mA and/or kV according to patient size (this includes techniques or standardized protocols for targeted exams where dose is matched to indication/reason for exam; i.e. extremities or head) - Use of iterative reconstruction technique DLP: 1023 mGy-cm. FINDINGS: VASCULAR: ASCENDING AORTA: 4.3 cm in diameter, previously 4.1 cm. AORTIC ARCH: Normal in caliber SUPRAAORTIC VESSELS: The supraaortic vessels are patent. HEART AND PULMONARY VESSELS: The heart is normal in size. Moderate coronary atherosclerosis. The pulmonary arteries are normal in caliber. No large, central pulmonary embolus. DESCENDING AORTA: Endograft extends from the proximal descending thoracic aorta through the abdominal aorta. No contrast enhancement within the aneurysm sac in the thoracic aorta. Aneurysm sac is stable in size. ABDOMINAL AORTA: Aortic endograft extends through the abdominal aorta. There is decreased endoleak within the aneurysm sac of the proximal abdominal aorta. Persistent endoleak distally. Aneurysm sac is unchanged in size. 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 The SMA is patent. The DEBBIE is occluded proximally. RENAL ARTERIES: Patent bilateral renal arteries RIGHT ILIOFEMORAL ARTERIES: Patent LEFT ILIOFEMORAL ARTERIES: Patent NONVASCULAR: LUNGS: Mild paraseptal emphysema. Stable small pulmonary nodules that do not require imaging follow-up. MEDIASTINUM: The mediastinum is normal. PLEURA: There is no pleural effusion. No pleural mass or thickening. LIVER AND BILIARY TREE: The liver is normal in size, shape, and attenuation. No focal hepatic lesion or biliary ductal dilatation is present. GALLBLADDER: Surgically absent PANCREAS: Unremarkable. SPLEEN: Unremarkable. ADRENAL GLANDS: Unremarkable. KIDNEYS AND URETERS: The kidneys are normal in size, shape, and attenuation. No hydronephrosis, hydroureter, or calculi seen. No perinephric stranding. BLADDER: Unremarkable. GASTROINTESTINAL TRACT: The small and large bowel are unremarkable. The appendix is unremarkable. ABDOMINAL WALL: No significant hernia is appreciated. LYMPH NODES: Normal. PELVIC VISCERA: Unremarkable. OSSEOUS STRUCTURES: Unremarkable. CT/CT angio abdomen pelvis IMPRESSION: 1. Ascending aorta measures 4.3 cm, previously 4.1 cm. 2. Endograft extends from the proximal descending thoracic aorta through the abdominal aorta. Aneurysm sac is stable in the thoracic aorta. 3. Decreased endoleak in the proximal abdominal aorta. Persistent endoleak distally. Aneurysm sac is unchanged in size. 4. 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 5. Moderate coronary atherosclerosis.
--- NOTE | ~2024-04-01 | XR_ITS ---
EXAMINATION: XR CHEST CLINICAL INFORMATION: Chest pain COMPARISON: 05/04/2022 TECHNIQUE: Frontal view of the chest was obtained. FINDINGS: Lungs are clear cardiomediastinal silhouette revealed status post aortic stenting. No evidence of vascular congestion or pleural effusion. XR/XR chest 1V IMPRESSION: No active cardiopulmonary disease
--- NOTE | 2024-04-01 13:59 | ECG_ITS ---
Test Reason : cp Blood Pressure : / mmHG Vent. Rate : 060 BPM Atrial Rate : 060 BPM P-R Int : 182 ms QRS Dur : 090 ms QT Int : 432 ms P-R-T Axes : 028 008 004 degrees QTc Int : 432 ms Normal sinus rhythm Nonspecific ST and T wave abnormality Abnormal ECG When compared with ECG of 04-MAY-2022 11:17, T wave inversion now evident in Inferior leads Referred By: Generic ED Physician Electronically Signed By:MARGOT LANDEROS MD
--- NOTE | 2024-04-01 14:19 | ED.CHESTPAIN ---
HPI - Chest Pain General Chief Complaint: Chest Pain Stated Complaint: CP Time Seen by Provider: 04/01/24 14:26 Source: patient and old records reviewed Mode of arrival: other (sent down from cardiology ) Limitations: no limitations History of Present Illness ED Provider: BELKIS ARMAS narrative: 58 yo male with PMH of BPH, DM, PVD, HTN, HLD, moderate ascending aortic aneurysm followed by cardiology, descending type B thoracic aortic dissection - s/p endovascular repair 2020 followed by [facility] who reports 2 weeks of exertional chest pain and dyspnea. He feels he cannot even mow the lawn. He notes the pain travels to the L arm/jaw and it goes numb. Sent down after ECHO done today no reports yet. No cough no fevers MD complaint: chest pain Pertinent past history: known aortic aneurysm Onset (ago): week(s) (2) Timing of current episode: episodic Prior episodes: Yes Onset: during exertion Pain location: left chest and epigastric Pain radiation: left arm and jaw/teeth Severity: moderate Quality: tightness and aching Relieving factors: nothing Exacerbating factors: exertion Associated symptoms: dyspnea Treatment prior to arrival: none Risk Factors Thoracic aortic dissection risk factors: history of thoracic aortic aneurysm Related Data Home Medications ?Medication ?Instructions ?Recorded ?Confirmed atorvastatin 40 mg tablet 40 mg PO BEDTIME 05/27/20 02/07/24 carvedilol 25 mg tablet (Coreg) 25 mg PO BID 05/27/20 02/07/24 lisinopril 40 mg tablet 40 mg PO DAILY 05/27/20 02/07/24 aspirin 81 mg tablet,delayed 81 mg PO DAILY 08/31/21 02/07/24 release (Adult Aspirin Regimen) amlodipine 10 mg tablet 10 mg PO DAILY 06/10/22 02/07/24 budesonide-formoterol HFA 160 inhalation 12/23/22 02/07/24 mcg-4.5 mcg/actuation aerosol inhaler (Symbicort) albuterol sulfate 90 mcg/actuation 2 puff inhalation Q6H 05/18/23 02/07/24 aerosol inhaler (Ventolin HFA) pregabalin 75 mg capsule 75 mg PO BID 01/30/24 02/07/24 Previous Rx's ?Medication ?Instructions ?Recorded lidocaine HCl 4 % topical patch 1 patch topical BID PRN pain #30 ea 07/06/22 (LidaFlex) tadalafil 5 mg tablet (Cialis) 5 mg PO DAILY #30 tabs 07/13/23 sildenafil 100 mg tablet 100 mg PO .PRN PRN sexual activity 10/10/23 #30 tabs alfuzosin 10 mg tablet,extended 10 mg PO DAILY #90 tabs 01/15/24 release 24 hr Allergies Allergy/AdvReac Type Severity Reaction Status Date / Time duloxetine Allergy Severe Nightmare Verified 04/01/24 14:13 baclofen [BACLOFEN] Allergy Intermediate RASH Verified 04/01/24 14:13 Review of Systems Review of Systems: Constitutional : No Weight loss, No Fever, No Chills ENT/Mouth : No sore throat, No Rhinorrhea Eyes: No Eye Pain, No Swelling Cardiovascular : pos Chest Pain, pos SOB, no Dyspnea on Exertion, No Orthopnea, No Edema, No Palpitations Respiratory : No Cough, No Sputum Gastrointestinal : no Nausea, No Vomiting, No Diarrhea, No abdominal Pain, No Hematochezia, No Melena Genitourinary : No Dysuria, No Urinary Frequency Musculoskeletal : No joint pain, No Myalgias, No Joint Swelling Skin : No Skin Lesions, No rash Neuro : No Weakness, No Numbness, No Dizziness, No Headache Psych : No Anxiety/Panic, No Depression All other systems reviewed and are negative PMFSH Past Medical History Attestation statement: The following information was validated with the patient. Source: old records reviewed Medical History Peripheral vascular disease Morbid obesity Sacroiliac joint dysfunction of right side Sacroiliitis HTN (hypertension) Descending thoracic aortic dissection Ascending aortic aneurysm Leg edema SOB (shortness of breath) Peptic ulcer disease Back pain Anxiety Hx of lipoma Constipation Esophagitis Sacroiliac joint pain Sacroiliitis Hypercholesteremia GERD (gastroesophageal reflux disease) Fatty liver VALERY (obstructive sleep apnea) Pulmonary hypertension Anemia Surgical History Status post excision of lipoma (~08/01/23) Hx of surgical procedure (06/19/23) Hx of repair of dissecting thoracic aortic aneurysm, [place] type B Hx of colonoscopy History of esophagogastroduodenoscopy (EGD) History of carpal tunnel release of both wrists History of arthroscopy of both knees Hx of cholecystectomy Family History Family History Father Depression Suicide Mother Diabetes Dementia Heart problem Sister Dementia, Onset Age: 73 Sister No problems noted. Brother No problems noted. Family/Other No problems noted. Social History Social History Alcohol intake: former Patient Tobacco Use Status: Former Tobacco user Years Smoked: 30 +/- Advance Directives: No Advance Directives Information Provided: Yes Physical Exam Vital Signs: Vital Signs: Last Vital Signs Temp 98.4 F 04/01/24 18:29 Pulse 77 04/01/24 18:29 Resp 18 04/01/24 18:29 BP 130/75 04/01/24 18:29 Pulse Ox 98 04/01/24 18:29 O2 Del Method Room Air 04/01/24 18:29 BMI result Body Mass Index 41.6 Appearance: Alert. Oriented X3. No acute distress. Eyes: Pupils equal, round and reactive to light. ENT: Pharynx normal. Neck: Normal inspection. Neck supple. CVS: Normal heart rate and rhythm. Pulses normal. Respiratory: No respiratory distress. Breath sounds normal. Abdomen: Soft and nontender. Skin: Skin warm and dry. Normal skin color. Normal skin turgor. Extremities: No lower extremity edema. No calf ttp Neuro: Oriented X 3. No motor deficit. No sensory deficit. Course Course Course Narrative: RME: [employer]One by JOB Allen. 58-year-old male history of aortic dissection and 2 stents presents to ED for chest pain. Patient was at cardiology office again echo and started having chest pain so Dr. Weber sent patient to the ED. Patient is diaphoretic having chest pain. Patient brought to the ED immediately. EKG labs ordered Reevaluation(s) Reevaluation #1: signed out to Dr. Lowery pending CT scans Medications Administered Discontinued Medications Generic Name Dose Route Start Last Admin Trade Name Freq PRN Reason Stop Dose Admin Acetaminophen 975 mg 04/01/24 17:43 04/01/24 17:51 Acetaminophen 325 Mg Tablet PO 04/01/24 17:44 975 mg ONCE ONE Administration Hydromorphone HCl 1 mg 04/01/24 16:13 04/01/24 16:18 Hydromorphone Hcl 1 Mg/Ml Syringe IVPUSH 04/01/24 16:14 1 mg ONCE ONE Administration Protocol Iohexol 100 ml 04/01/24 15:50 04/01/24 15:54 Iohexol 350 Mg/Ml 100 Ml Infus..Btl IV 04/01/24 15:51 85 ml ONCE ONE Administration Morphine Sulfate 4 mg 04/01/24 14:37 04/01/24 15:03 Morphine Sulfate 4 Mg/Ml Cartridge IVPUSH 04/01/24 14:38 4 mg ONCE ONE Administration Protocol Medical Decision Making Medical Decision Making MDM Narrative: 58 yo male with PMH of BPH, DM, PVD, HTN, HLD, moderate ascending aortic aneurysm followed by cardiology, descending type B thoracic aortic dissection - s/p endovascular repair 2020 here with c/o exertional chest pain and dyspnea at this time he states it does not feel like his prior dissection will obtain labs, EKG, troponin x 1, discuss ECHO findings with cardiology obtain CTA of chest and abdomen to evaluate his aneurysm. IV morphine for pain Patient's chest pain is atypical has a history of thoracic aortic aneurysm also had a descending type B thoracic dissection that was treated with a an endovascular graft. The CTA report of the chest abdomen pelvis was discussed with cardiology. [place] at this time the findings are stable. Patient's symptoms not consistent with having an aortic care. He is neurologically intact. He is well-appearing. His chest pain is atypical. His troponin is negative. Cardiology's willing to closely follow-up with patient on an outpatient basis. Will discharge him home close follow-up. Differential Diagnosis Differential Diagnoses: The differential diagnosis associated with the presentation includes ACS, angina, aneurysm, dissection Admission/Observation Consideration of admission/observation: Escalation of care including admission/observation considered Lab Data [facility] [place] Lab Attestation statement: I reviewed the patient's lab results. 04/01/24 14:38 04/01/24 14:38 Labs: Lab Results 04/01/24 Range/Units 14:38 WBC 9.4 (4.8-10.8) X10*3/uL RBC 4.79 (4.60-5.80) X10*6/uL Hgb 13.9 L (14.0-18.0) g/dl Hct 41.2 L (42.0-52.0) % MCV 86.0 (80.0-98.0) fL MCH 29.0 (27.0-33.0) pg MCHC 33.7 (31.0-36.0) g/dl RDW 13.5 (11.0-16.0) % Plt Count 220 (160-400) X10*3/uL MPV 8.4 L (9.4-12.4) fL Immature Gran % (Auto) 0.4 (0.0-0.4) % Neut % (Auto) 58.9 (45-73) % Lymph % (Auto) 31.1 (20-40) % Nash % (Auto) 7.5 (2-11) % Eos % (Auto) 1.5 (0-4) % Baso % (Auto) 0.6 (0-2) % Lymph # (Auto) 2.9 (1.2-4.9) X10*3/uL Nash # (Auto) 0.7 (0.1-1.2) X10*3/uL Eos # (Auto) 0.1 (0.0-0.4) X10*3/uL Baso # (Auto) 0.1 (0.0-0.2) X10*3/uL Abs Immat Gran (auto) 0.04 H (0.00-0.03) X10*3/uL Absolute Neuts (auto) 5.5 (2.0-8.3) x10*3/uL Absolute Nucleated RBC 0.000 (0.0-0.012) X10*3/uL Nucleated RBC % (auto) 0.0 (0.0-0.2) /100WBC PT 12.4 (11.1-13.3) SEC INR 1.0 (0.9-1.1) APTT 28.3 (26.0-36.8) SEC Sodium 139 (135-145) mmol/L Potassium 3.7 (3.3-5.1) mmol/L Chloride 107 (96-108) mmol/L Carbon Dioxide 24 (22-29) mmol/L Anion Gap 12 (12-20) BUN 16 (9-16) mg/dL Creatinine 0.78 (0.5-1.4) mg/dL Estim Creat Clear Calc 140.7 Estimated GFR > 60 Random Glucose 97 (60-115) mg/dL Calcium 9.1 (8.4-10.2) mg/dL Total Bilirubin 0.3 (0.0-1.0) mg/dL AST 15 (5-37) U/L ALT 22 (0-40) U/L Alkaline Phosphatase 77 (39-117) U/L Troponin I High Sens < 2.7 (<3.5-35.0) ng/L B-Natriuretic Peptide 46 (<100) pg/mL Total Protein 6.7 (6.5-8.0) g/dL Albumin 3.9 (3.5-5.0) g/dL Influenza Type A (PCR) NEGATIVE (Negative) Influenza Type B (PCR) NEGATIVE (Negative) RSV RNA Qual (PCR) NEGATIVE (Negative) SARS-CoV-2 RNA (RT-PCR) NEGATIVE (Negative) Independent Interpretation I performed an independent interpretation of an: EKG, Plain X-Ray and CT Scan Interpretation: Rate: 60 Rhythm: NSR [place]: normal Normal P waves. Normal MEG. Normal QRS complex. ST T wave : inverted t wave III, V1, V2, V3 qTC: 434 prior studies: unchanged Apr 2022 The study has been interpreted contemporaneously by me. . Radiology Impression Discussion of test interpretation with radiology: I have reviewed the radiologist's reading. External Record Review External record reviewed: Inpatient record and Office record Discharge Plan Discharge Clinical Impression: Chest pain Qualifiers: Chest pain type: precordial pain Qualified Code(s): R07.2 - Precordial pain Patient Disposition: Home, Self-Care Instructions: Chest Pain (ED) Prescriptions: No Action LidaFlex 4 % adhesive patch,medicated 1 patch topical BID PRN (Reason: pain) Qty: 30 2RF sildenafil 100 mg tablet 100 mg PO .PRN PRN (Reason: sexual activity) Qty: 30 1RF Rx Instructions: administer 30 minutes to 4 hours before activity, not to exceed one dose daily atorvastatin 40 mg Tablet 40 mg PO BEDTIME carvedilol [Coreg] 25 mg Tablet 25 mg PO BID lisinopril 40 mg Tablet 40 mg PO DAILY aspirin [Adult Aspirin Regimen] 81 mg tablet,delayed release (DR/EC) 81 mg PO DAILY amlodipine 10 mg tablet 10 mg PO DAILY budesonide-formoterol [Symbicort] 160-4.5 mcg/actuation HFA aerosol inhaler inhalation albuterol sulfate [Ventolin HFA] 90 mcg/actuation HFA aerosol inhaler 2 puff inhalation Q6H pregabalin 75 mg capsule 75 mg PO BID tadalafil [Cialis] 5 mg tablet 5 mg PO DAILY Qty: 30 5RF Rx Instructions: [id number] [facility] [id number] Member [id number] alfuzosin 10 mg tablet extended release 24 hr 10 mg PO DAILY Qty: 90 2RF Rx Instructions: administer after the same meal each day Referrals: Tyree Weber MD [Physician] - 04/03/24 Interventions: ED Discharge Assessment Last Done: 04/01/24 18:29 Discharge Date/Time: 04/01/24 18:30 Print Language: Slovenian
[2024-04-01 14:48] LABS: MANUAL DIFF FLAG NO
[2024-04-01 14:51] LABS: Basophils Absolute Auto 0.1 X10*3/uL (0.0-0.2); Basophils Percent Auto 0.6 % (0-2); Eosinophils Absolute Auto 0.1 X10*3/uL (0.0-0.4); Eosinophils Percent Auto 1.5 % (0-4); Hematocrit 41.2 % (42.0-52.0); Hemoglobin 13.9 g/dl (14.0-18.0); Imm Gran Abs Auto 0.04 X10*3/uL (0.00-0.03); Imm Gran Pct Auto 0.4 % (0.0-0.4); Lymphocytes Absolute Auto 2.9 X10*3/uL (1.2-4.9); Lymphocytes Percent Auto 31.1 % (20-40); Mean Corpuscular HGB Conc 33.7 g/dl (31.0-36.0); Mean Platelet Volume 8.4 fL (9.4-12.4); Monocytes Absolute Auto 0.7 X10*3/uL (0.1-1.2); Monocytes Percent Auto 7.5 % (2-11); Neutrophils Absolute Auto 5.5 x10*3/uL (2.0-8.3); Neutrophils Percent Auto 58.9 % (45-73); Platelet Count 220 X10*3/uL (160-400); Red Blood Count 4.79 X10*6/uL (4.60-5.80); Red Cell Distribution Width 13.5 % (11.0-16.0); White Blood Count 9.4 X10*3/uL (4.8-10.8)
[2024-04-01 14:56] LABS: Prothrombin Time 12.4 SEC (11.1-13.3)
[2024-04-01 14:59] LABS: Partial Thromboplastin Time 28.3 SEC (26.0-36.8)
[2024-04-01] MEDS: Morphine Sulfate 4 MG/ML CARTRIDGE IVPUSH (15:03)
[2024-04-01 15:11] LABS: Alanine Aminotransferase 22 U/L (0-40); Albumin Level 3.9 g/dL (3.5-5.0); Alkaline Phosphatase 77 U/L (39-117); Anion Gap 12 (12-20); Aspartate Amino Transferase 15 U/L (5-37); Bilirubin Total 0.3 mg/dL (0.0-1.0); Blood Urea Nitrogen 16 mg/dL (9-16); Calcium 9.1 mg/dL (8.4-10.2); Carbon Dioxide 24 mmol/L (22-29); Chloride 107 mmol/L (96-108); Creatinine Clr Calc Pharmacy 140.7; Estimated Glomerular Filt Rate > 60; Glucose Random 97 mg/dL (60-115); Potassium 3.7 mmol/L (3.3-5.1); Sodium 139 mmol/L (135-145); Total Protein 6.7 g/dL (6.5-8.0)
--- NOTE | 2024-04-01 15:13 | PC.NURSE ---
Pt coming from cardiology after getting Echo done. Pt having CP with activity. Pt currently having 6/10 Chest tightness. Pt has extensive cardio history, awaiting CT/labs at this time
[2024-04-01 15:16] LABS: B Type Natriuretic Peptide 46 pg/mL (<100)
[2024-04-01 15:21] LABS: Troponin-I High Sensitivity < 2.7 ng/L (<3.5-35.0)
[2024-04-01 15:29] LABS: Influenza A PCR NEGATIVE (Negative); Influenza B PCR NEGATIVE (Negative); Resp Syncy Virus RNA Qual PCR NEGATIVE (Negative); SARS COV2 PCR INHOUSE NEGATIVE (Negative)
[2024-04-01] MEDS: iohexoL 350 MG/ML 100 ML INFUS..BTL IV (15:54)
[2024-04-01] MEDS: HYDROmorphone HCl 1 MG/ML SYRINGE IVPUSH (16:18)
[2024-04-01] MEDS: Acetaminophen 325 MG TABLET 975 MG PO (17:51)
== END 2024-04-01 18:30 | disposition home or self-care (01) ==
PROVIDERS: Physician Assistant; Emergency Provider Emergency Medicine Emergency Medical Services; PCP Internal Medicine
DX: R07.89 Other chest pain (principal); R10.13 Epigastric pain; R06.02 Shortness of breath; Z79.899 Other long term (current) drug therapy; Z03.818 Encounter for observation for suspected exposure to other biological agents ruled out
CPT/HCPCS: 0241U; 36415; 71045; 71275; 74174; 80053; 83880; 84484; 85025; 85610; 85730; 93005; 96374; 96375; 99284; 99285; J1170; J2270; Q9967

== ENCOUNTER → 2024-04-01 13:59 | Outpatient (BNV) | payer MEDICAID, SELFPAY | PROVIDERS: Emergency Provider Emergency Medicine; PCP Internal Medicine; Visit Provider Internal Medicine Cardiovascular Disease | DX: I71.21 Aneurysm of the ascending aorta, without rupture (principal); I35.1 Nonrheumatic aortic (valve) insufficiency; R94.31 Abnormal electrocardiogram [ECG] [EKG] | CPT/HCPCS: 93010; 93306 ==

== ENCOUNTER 2024-04-23 07:55 | Outpatient (REF) | payer MEDICAID, SELFPAY ==
[2024-04-23 10:02] LABS: Anion Gap 12 (12-20); Blood Urea Nitrogen 12 mg/dL (9-16); Carbon Dioxide 25 mmol/L (22-29); Chloride 107 mmol/L (96-108); Estimated Glomerular Filt Rate > 60; Glucose Random 103 mg/dL (60-115); Potassium 4.9 mmol/L (3.3-5.1); Sodium 139 mmol/L (135-145)
[2024-04-23 10:38] LABS: Appearance Urine Clear; Color Urine Yellow; Glucose Urine UA Negative (Negative); Leukocyte Esterase Urine Negative (Negative); Nitrite Urine Negative (Negative); Specific Gravity - Urine >= 1.030 (1.005-1.025); UMIC TRIGGER UA YES; Urine Blood Large (3+) (Negative); Urine Ketones Trace mg/dL (Negative); Urine Protein 30 (1+) mg/dL (Neg-Trace)
[2024-04-23 10:44] LABS: Bacteria Urine None Seen (None Seen); Hyaline Casts Urine 0-2 /LPF (0-2); RBC Urine >20 /HPF (0-2); Squamous Epithelial Cell Urine 0-2 /HPF (0-2); WBC Urine 0-5 /HPF (0-5)
[2024-04-23 11:08] LABS: Total Protein Urine Random 44 mg/dL (<12)
== END 2024-04-23 07:56 | disposition home or self-care (01) ==
LOC: HO.LAB 07:55
PROVIDERS: PCP Internal Medicine; Visit Provider Internal Medicine Hypertension Specialist
DX: R80.9 Proteinuria, unspecified (principal); R31.29 Other microscopic hematuria
CPT/HCPCS: 36415; 80048; 81001; 82570; 84156

== ENCOUNTER 2024-04-25 09:28 | Outpatient (AMB) | payer MEDICAID, SELFPAY ==
--- NOTE | 2024-04-25 09:30 | HO.NEPHOV ---
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 Silvestre is a pleasant 58-year-old man with a history of obesity, hypertension who was found to have proteinuria by dipstick. He has been referred for the evaluation of proteinuria. He has a history of chronic back pain. MRI in 2022 showed mild to moderate lumbar spondylosis. No severe central canal stenosis or foraminal stenosis within the lumbar spine. He is being seen by pain management. He is on Lyrica. In addition he is also on ibuprofen 200 mg 3 times a day. Silvestre has a history of hypertension. He is on amlodipine 10 mg, carvedilol 25 mg b.i.d. and lisinopril 40 mg q.d.. After taking his medications he feels washed out. Today he has not taken his medications yet. However blood pressure was 118 /66 Renal function has been stable with a creatinine 0.71 in 06/16/2023. Urinalysis showed trace protein. No blood. Renal ultrasonogram was unremarkable. He has a history of aortic dissection. Type B aortic dissection status post interval stent graft repair.(2020). Being followed by Dr. Marino In 2020 CTA showed patent renal arteries on both sides without stenosis 02/01/2024. Underwent a 24 hour ABPM 04/25/24 [place] WHITT Was in ER for chest pain/back pain Seen by cardiology [facility] Medical History Peripheral vascular disease Morbid obesity Sacroiliac joint dysfunction of right side Sacroiliitis HTN (hypertension) Descending thoracic aortic dissection Ascending aortic aneurysm Leg edema SOB (shortness of breath) Peptic ulcer disease Back pain Anxiety Hx of lipoma Constipation Esophagitis Sacroiliac joint pain Sacroiliitis Hypercholesteremia GERD (gastroesophageal reflux disease) Fatty liver VALERY (obstructive sleep apnea) Pulmonary hypertension Anemia Surgical History Status post excision of lipoma (~08/01/23) Hx of surgical procedure (06/19/23) Hx of repair of dissecting thoracic aortic aneurysm, [place] type B Hx of colonoscopy History of esophagogastroduodenoscopy (EGD) History of carpal tunnel release of both wrists History of arthroscopy of both knees Hx of cholecystectomy Family History Father Depression Suicide Mother Diabetes Dementia Heart problem Sister Dementia, Onset Age: 73 Sister No problems noted. Brother No problems noted. Family/Other No problems noted. Social History Alcohol intake: former Patient Tobacco Use Status: Former Tobacco user Years Smoked: 30 +/- Physical Exam Vital Signs: Last Vital Signs Pulse 76 04/25/24 09:31 BP 136/74 04/25/24 09:31 Pulse Ox 96 04/25/24 09:31 Oxygen Delivery Method Room Air 04/25/24 09:31 BMI result Body Mass Index 42.6 Const General: comfortable Nutritional Appearance: well nourished Orientation/consciousness: patient oriented x3 HEENT Head: No normal to inspection Mouth: moist mucous membranes Neck Neck: Yes supple and Yes no JVD Resp Auscultation: clear to auscultation bilaterally, no rales and rub present Cardio Jugular venous distension: no JVD Palpation: no palpable S3 and no palpable S4 Heart sounds: no rubs GI Palpation (GI): Soft to palpation and nontender Percussion: No Fluid wave present General: Yes no CVA tenderness Back/Spine/Pelvis Back: no CVA tenderness Skin General skin exam: no rashes or lesions noted Neuro General: patient oriented x3 Extrem General: Yes no pedal edema and No clubbing Results Reviewed Nephrology Results: Hgb 13.9 g/dl (14.0-18.0) L 04/01/24 WBC 9.4 X10*3/uL (4.8-10.8) 04/01/24 Plt Count 220 X10*3/uL (160-400) 04/01/24 Sodium 139 mmol/L (135-145) 04/23/24 Potassium 4.9 mmol/L (3.3-5.1) 04/23/24 Chloride 107 mmol/L (96-108) 04/23/24 Carbon Dioxide 25 mmol/L (22-29) 04/23/24 BUN 12 mg/dL (9-16) 04/23/24 Creatinine 0.74 mg/dL (0.5-1.4) 04/23/24 Calcium 9.0 mg/dL (8.4-10.2) 04/23/24 Urine Protein 30 (1+) mg/dL (Neg-Trace) H 04/23/24 Urine Creatinine 308.33 mg/dL 04/23/24 Assessment & Plan Assessment & Plan (1) Proteinuria: Code(s): R80.9 - Proteinuria, unspecified Category: Medical (2) HTN (hypertension): Code(s): I10 - Essential (primary) hypertension Category: Medical (3) Microscopic hematuria: Code(s): R31.29 - Other microscopic hematuria Category: Medical Plan: Being followed by Urology Plan . Silvestre is a 50-year-old man with obesity and hypertension with minimal proteinuria. Proteinuria can be related to both hypertensive kidney disease as well as obesity. Urine sediments our plan therefore glomerular nephritis seems unlikely. He has minimal proteinuria with a urine protein creatinine ratio of 0.125. He will benefit from weight loss. Blood pressure needs to be maintained less than 130/80. History of hypertension in a setting obesity. 24 hour ABP and was reviewed. He has been taking Coreg 25 mg 2 tabs b.i.d.. I will switch to 20 mg b.i.d.. Switched lisinopril 40 mg from q.a.m. to q.p.m.. By spacing out the antihypertensives we should be able to avoid hypotensive episodes. \Monitor BP at home Chronic low back pain. Follow up with pain clinic. He is on ibuprofen 800 mg 3 times a day. He is at high risk for [facility] due to the combination of high dose of NSAIDs and lisinopril. Since he is unable to discontinue ibuprofen , we might have to discontinue lisinopril and use alternate antihypertensive agents if the serum creatinine increases. Microhematuria- SErology ordered Urology work up in progress Orders: Orders Basic Metabolic Panel 4 Months R31.29 - Other microscopic hematuria, R80.9 - Proteinuria, unspecified UA and rflx microscopic 4 Months R31.29 - Other microscopic hematuria, R80.9 - Proteinuria, unspecified Creatinine Urine 4 Months R31. - Other microscopic hematuria, R80.9 - Proteinuria, unspecified Neutrophil Cytoplasma Ab 4 Months R31. - Other microscopic hematuria, R80.9 - Proteinuria, unspecified Complement C3 4 Months R31. - Other microscopic hematuria, R80.9 - Proteinuria, unspecified Complement C4 4 Months R31. - Other microscopic hematuria, R80.9 - Proteinuria, unspecified Total Protein Urine Random 4 Months R31. - Other microscopic hematuria, R80.9 - Proteinuria, unspecified Anti Glomerular Basement Memb 4 Months R31. - Other microscopic hematuria, R80.9 - Proteinuria, unspecified Anti DNA DS Antibody 4 Months R31. - Other microscopic hematuria, R80.9 - Proteinuria, unspecified Protein Electrophoresis, Serum 4 Months R31. - Other microscopic hematuria, R80.9 - Proteinuria, unspecified Coding Level of Care Code Est Pt Level 4 (20737) Diagnoses Proteinuria R80.9 HTN (hypertension) I10 Microscopic hematuria R31.
[2024-04-25 09:31] VITALS: BP 136/74; PULSE 76; O2SAT 96; BMI 42.6
== END 2024-04-25 09:48 | disposition home or self-care (01) ==
PROVIDERS: PCP Internal Medicine; Referring Provider Internal Medicine; Visit Provider Internal Medicine Hypertension Specialist
DX: R80.9 Proteinuria, unspecified (principal); I10 Essential (primary) hypertension; R31.29 Other microscopic hematuria
CPT/HCPCS: 99214

== ENCOUNTER → 2024-04-25 09:28 | Outpatient (BNVA) | payer MEDICAID, SELFPAY | PROVIDERS: PCP Internal Medicine; Visit Provider Internal Medicine Hypertension Specialist | DX: I10 Essential (primary) hypertension (principal); R80.9 Proteinuria, unspecified; R31.29 Other microscopic hematuria | CPT/HCPCS: 99212 ==

== ENCOUNTER 2024-06-05 12:50 | Outpatient (REF) | payer MEDICAID, SELFPAY ==
[2024-06-05 13:34] LABS: Appearance Urine Clear; Color Urine Yellow; Glucose Urine UA Negative (Negative); Leukocyte Esterase Urine Negative (Negative); Nitrite Urine Negative (Negative); UMIC TRIGGER UA YES; Urine Blood Moderate (2+) (Negative); Urine Ketones Negative (Negative); Urine Protein Negative (Neg-Trace)
[2024-06-05 13:41] LABS: Bacteria Urine None Seen (None Seen); Hyaline Casts Urine 0-2 /LPF (0-2); Squamous Epithelial Cell Urine 0-2 /HPF (0-2); WBC Urine 0-5 /HPF (0-5)
[2024-06-05 14:23] LABS: Total Protein Urine Random 17 mg/dL (<12)
[2024-06-05 14:25] LABS: Anion Gap 11 (12-20); Blood Urea Nitrogen 12 mg/dL (9-16); Calcium 8.7 mg/dL (8.4-10.2); Carbon Dioxide 24 mmol/L (22-29); Chloride 108 mmol/L (96-108); Estimated Glomerular Filt Rate > 60; Glucose Random 126 mg/dL (60-115); Potassium 3.5 mmol/L (3.3-5.1); Sodium 139 mmol/L (135-145)
[2024-06-06 10:44] LABS: Complement C3 99 mg/dL (82-185)
[2024-06-07 10:17] LABS: Prot Elec - Albumin 3.9 g/dL (3.8-4.8); Prot Elec - Alpha1 0.3 g/dL (0.2-0.3); Prot Elec - Alpha2 0.6 g/dL (0.5-0.9); Prot Elec - Beta 1 0.4 g/dL (0.4-0.6); Prot Elec - Beta 2 0.5 g/dL (0.2-0.5); Prot Elec - Total Protein 6.6 g/dL (6.1-8.1)
[2024-06-07 13:58] LABS: Anti DNA DS Antibody <1 IU/mL; Anti Glomerular Basement Memb <1.0 AI
[2024-06-11 15:23] LABS: Neutrophil Cyto Ab Screen NEGATIVE (NEGATIVE)
== END 2024-06-05 12:51 | disposition home or self-care (01) ==
LOC: HO.HHCL 12:50
PROVIDERS: Visit Provider Internal Medicine Hypertension Specialist
DX: R80.9 Proteinuria, unspecified (principal); R31.29 Other microscopic hematuria
CPT/HCPCS: 36415; 80048; 81001; 82570; 83520; 84156; 84165; 86036; 86160; 86225

== ENCOUNTER 2024-08-20 08:01 | Day surgery (SDC) | payer MEDICAID, SELFPAY ==
--- NOTE | 2024-06-03 10:10 | HO.ANESPROP2 ---
HPI - Anesthesia Eval Consult details Narrative: Rescheduled to 07/2024 59yo M for Upper Endoscopy with Balloon Dilitation Per 04/2024 pulmo note, pt recently started Wegovy? [place] [facility] [place] Sent to ER from [facility] for c/o chest pain. OK to proceed per cardiology workload message. Follows [facility] vascular: history of type B aortic dissection status post endovascular repair (stable on recent imaging) Anesthesia Pre-Procedure Meds Is the patient on any of the following meds?: GLP1/DPP4 PMFSH Active Problems Active Problems: All Active Problems Screening PSA (prostate specific antigen) (Acute) Proteinuria (Acute) Testicular pain, right (Acute) Erectile dysfunction (Acute) Nocturia (Acute) BPH loc w urin obs/LUTS (Acute) Microscopic hematuria (Acute) Skin lesion (Acute) Multiple lipomas (Acute) Diabetes mellitus (Acute) Lumbar back pain with radiculopathy affecting right lower extremity (Acute) 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) Abdominal wall pain in right upper quadrant (Acute) Lumbar spondylosis (Acute) RUQ pain (Acute) Varicose veins of right lower extremity with inflammation (Acute) Giardia (Acute) Chest discomfort (Acute) Shortness of breath (Acute) Therapeutic opioid-induced constipation (OIC) (Acute) Dysphagia (Acute) Peripheral vascular disease (Acute) Morbid obesity (Acute) Sacroiliac joint dysfunction of right side (Acute) Sacroiliitis (Acute) Esophagitis (Acute) Ascending aortic aneurysm (Acute) Descending thoracic aortic dissection (Acute) HTN (hypertension) (Acute) Hypercholesteremia (Acute) Past Medical History Medical History Peripheral vascular disease Morbid obesity Sacroiliac joint dysfunction of right side Sacroiliitis HTN (hypertension) Descending thoracic aortic dissection Ascending aortic aneurysm Leg edema SOB (shortness of breath) Peptic ulcer disease Back pain Anxiety Hx of lipoma Constipation Esophagitis Sacroiliac joint pain Sacroiliitis Hypercholesteremia GERD (gastroesophageal reflux disease) Fatty liver VALERY (obstructive sleep apnea) Pulmonary hypertension Anemia Family History Family History Father Depression Suicide Mother Diabetes Dementia Heart problem Sister Dementia, Onset Age: 73 Sister No problems noted. Brother No problems noted. Family/Other No problems noted. Family history of problems with anesthesia: No Surgical History Surgical History Status post excision of lipoma (~08/01/23) Hx of surgical procedure (06/19/23) Hx of repair of dissecting thoracic aortic aneurysm, [place] type B Hx of colonoscopy History of esophagogastroduodenoscopy (EGD) History of carpal tunnel release of both wrists History of arthroscopy of both knees Hx of cholecystectomy History of Problems with Anesthesia: No Social History Social History Alcohol intake: former Patient Tobacco Use Status: Former Tobacco user Years Smoked: 30 +/- Meds Allergies Allergy/AdvReac Type Severity Reaction Status Date / Time duloxetine Allergy Severe Nightmare Verified 04/25/24 09:32 baclofen [BACLOFEN] Allergy Intermediate RASH Verified 04/25/24 09:32 Home Medications ?Medication ?Instructions ?Recorded ?Confirmed ?Last Taken ?Type atorvastatin 40 mg tablet 40 mg PO BEDTIME 05/27/20 02/07/24 06/15/22 History carvedilol 25 mg tablet (Coreg) 25 mg PO BID 05/27/20 02/07/24 06/15/22 History lisinopril 40 mg tablet 40 mg PO DAILY 05/27/20 02/07/24 06/15/22 History aspirin 81 mg tablet,delayed 81 mg PO DAILY 08/31/21 02/07/24 03/19/23 History release (Adult Aspirin Regimen) amlodipine 10 mg tablet 10 mg PO DAILY 06/10/22 02/07/24 06/12/22 History budesonide-formoterol HFA 160 inhalation 12/23/22 02/07/24 Unknown History mcg-4.5 mcg/actuation aerosol inhaler (Symbicort) albuterol sulfate 90 mcg/actuation 2 puff inhalation Q6H 05/18/23 02/07/24 Unknown History aerosol inhaler (Ventolin HFA) pregabalin 75 mg capsule 75 mg PO BID 01/30/24 02/07/24 Unknown History semaglutide (weight loss) 0.25 0.25 mg subcut QWEEK 06/03/24 06/03/24 Unknown History mg/0.5 mL subcutaneous pen injector (Wegovy) Exam Pertinent Lab Results Pertinent Lab Results: Laboratory Tests 04/01/24 04/23/24 14:38 08:33 WBC 9.4 Hgb 13.9 L Hct 41.2 L Plt Count 220 Sodium 139 Potassium 4.9 D Chloride 107 Carbon Dioxide 25 BUN 12 Creatinine 0.74 Narrative Narrative: EKG 03/2024 Vent. Rate : 060 BPM Atrial Rate : 060 BPM P-R Int : 182 ms QRS Dur : 090 ms QT Int : 432 ms P-R-T Axes : 028 008 004 degrees QTc Int : 432 ms Normal sinus rhythm Nonspecific ST and T wave abnormality Abnormal ECG When compared with ECG of 04-MAY-2022 11:17, T wave inversion now evident in Inferior leads ECHO 03/2024 Conclusions: - 1. Normal LV ejection fraction of 65-70% 2. Mild aortic regurgitation 3. Moderately dilated ascending aorta 4.6 cm 4. Normal RV systolic pressure 5. No gross pericardial effusion CT Angio 02/2024 IMPRESSION: Stable status post treatment of a type B aortic dissection with endovascular stents extending throughout the descending thoracic aorta and ending in the iliac arteries. No significant change in the residual false lumen of the dissection. Stable versus minimally increased aneurysm of the ascending aorta. No acute evaluate identified in the chest, abdomen and pelvis. Assessment and Plan Final Anesthetic Review Family History of Problems with Anesthesia: No History of Problems with Anesthesia: No
--- NOTE | 2024-08-19 12:25 | HO.ANESPROP2 ---
Documented by User: Natividad Acharya NP 08/19/24 12:26 HPI - Anesthesia Eval Consult details Narrative: 59yo M for Upper Endoscopy with Balloon Dilitation Per 04/2024 pulmo note, pt recently started Wegovy? Follows [facility] [place]. Sent to ER from [facility] for c/o chest pain. OK to proceed per cardiology workload message. Follows [facility] vascular: history of type B aortic dissection status post endovascular repair (stable on recent imaging) Anesthesia Pre-Procedure Meds Is the patient on any of the following meds?: GLP1/DPP4 PMFSH Active Problems Active Problems: All Active Problems (Updated 04/02/24 @ 00:02 by Background Daemon) Screening PSA (prostate specific antigen) (Acute) Proteinuria (Acute) Testicular pain, right (Acute) Erectile dysfunction (Acute) Nocturia (Acute) BPH loc w urin obs/LUTS (Acute) Microscopic hematuria (Acute) Skin lesion (Acute) Multiple lipomas (Acute) Diabetes mellitus (Acute) Lumbar back pain with radiculopathy affecting right lower extremity (Acute) 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) Abdominal wall pain in right upper quadrant (Acute) Lumbar spondylosis (Acute) RUQ pain (Acute) Varicose veins of right lower extremity with inflammation (Acute) Giardia (Acute) Chest discomfort (Acute) Shortness of breath (Acute) Therapeutic opioid-induced constipation (OIC) (Acute) Dysphagia (Acute) Peripheral vascular disease (Acute) Morbid obesity (Acute) Sacroiliac joint dysfunction of right side (Acute) Sacroiliitis (Acute) Esophagitis (Acute) Ascending aortic aneurysm (Acute) Descending thoracic aortic dissection (Acute) HTN (hypertension) (Acute) Hypercholesteremia (Acute) Past Medical History Medical History Peripheral vascular disease Morbid obesity Sacroiliac joint dysfunction of right side Sacroiliitis HTN (hypertension) Descending thoracic aortic dissection Ascending aortic aneurysm Leg edema SOB (shortness of breath) Peptic ulcer disease Back pain Anxiety Hx of lipoma Constipation Esophagitis Sacroiliac joint pain Sacroiliitis Hypercholesteremia GERD (gastroesophageal reflux disease) Fatty liver VALERY (obstructive sleep apnea) Pulmonary hypertension Anemia Family History Family History Father Depression Suicide Mother Diabetes Dementia Heart problem Sister Dementia, Onset Age: 73 Sister No problems noted. Brother No problems noted. Family/Other No problems noted. Family history of problems with anesthesia: No Surgical History Surgical History Status post excision of lipoma (~08/01/23) Hx of surgical procedure (06/19/23) Hx of repair of dissecting thoracic aortic aneurysm, [place] type B Hx of colonoscopy History of esophagogastroduodenoscopy (EGD) History of carpal tunnel release of both wrists History of arthroscopy of both knees Hx of cholecystectomy History of Problems with Anesthesia: No Social History Social History Alcohol intake: former Patient Tobacco Use Status: Current someday Tobacco user Years Smoked: 30 +/- Meds Allergies Allergy/AdvReac Type Severity Reaction Status Date / Time duloxetine Allergy Severe Nightmare Verified 04/25/24 09:32 baclofen [BACLOFEN] Allergy Intermediate RASH Verified 04/25/24 09:32 Home Medications ?Medication ?Instructions ?Recorded ?Confirmed ?Last Taken ?Type atorvastatin 40 mg tablet 40 mg PO BEDTIME 05/27/20 02/07/24 08/19/24 History carvedilol 25 mg tablet (Coreg) 25 mg PO BID 05/27/20 02/07/24 08/20/24 History lisinopril 40 mg tablet 40 mg PO DAILY 05/27/20 02/07/24 08/19/24 History aspirin 81 mg tablet,delayed 81 mg PO DAILY 08/31/21 02/07/24 08/20/24 History release (Adult Aspirin Regimen) amlodipine 10 mg tablet 10 mg PO DAILY 06/10/22 02/07/24 08/20/24 History budesonide-formoterol HFA 160 inhalation 12/23/22 02/07/24 08/20/24 History mcg-4.5 mcg/actuation aerosol inhaler (Symbicort) albuterol sulfate 90 mcg/actuation 2 puff inhalation Q6H 05/18/23 02/07/24 08/20/24 History aerosol inhaler (Ventolin HFA) pregabalin 75 mg capsule 75 mg PO BID 0602/07/24 08/19/24 History semaglutide (weight loss) 0.25 0.25 mg subcut QWEEK 06/03/24 06/03/24 08/06/24 History mg/0.5 mL subcutaneous pen injector (Wegovy) Exam Pertinent Lab Results Pertinent Lab Results: Laboratory Tests 04/01/24 04/23/24 14:38 08:33 WBC 9.4 Hgb 13.9 L Hct 41.2 L Plt Count 220 Sodium 139 Potassium 4.9 D Chloride 107 Carbon Dioxide 25 BUN 12 Creatinine 0.74 Narrative Narrative: EKG 03/2024 Vent. Rate : 060 BPM Atrial Rate : 060 BPM P-R Int : 182 ms QRS Dur : 090 ms QT Int : 432 ms P-R-T Axes : 028 008 004 degrees QTc Int : 432 ms Normal sinus rhythm Nonspecific ST and T wave abnormality Abnormal ECG When compared with ECG of 04-MAY-2022 11:17, T wave inversion now evident in Inferior leads ECHO 03/2024 Conclusions: - 1. Normal LV ejection fraction of 65-70% 2. Mild aortic regurgitation 3. Moderately dilated ascending aorta 4.6 cm 4. Normal RV systolic pressure 5. No gross pericardial effusion CT Angio 02/2024 IMPRESSION: Stable status post treatment of a type B aortic dissection with endovascular stents extending throughout the descending thoracic aorta and ending in the iliac arteries. No significant change in the residual false lumen of the dissection. Stable versus minimally increased aneurysm of the ascending aorta. No acute evaluate identified in the chest, abdomen and pelvis. Assessment and Plan Assessment Anesthesia Assessment: Chart Reviewed Final Anesthetic Review Family History of Problems with Anesthesia: No History of Problems with Anesthesia: No Documented by User: Kita Del Real MD 08/20/24 11:01 HPI - Anesthesia Eval Anesthesia Pre-Procedure Meds Is the patient on any of the following meds?: GLP1/DPP4 (Last dose of Wegovy 08/06/24) If yes to any meds - educate patient: Pt education - increased risk of aspiration and/or euvolemic DKA PMFSH Active Problems Active Problems: All Active Problems (Updated 04/02/24 @ 00:02 by Jaylon Bai) Screening PSA (prostate specific antigen) (Acute) Proteinuria (Acute) Testicular pain, right (Acute) Erectile dysfunction (Acute) Nocturia (Acute) BPH loc w urin obs/LUTS (Acute) Microscopic hematuria (Acute) Skin lesion (Acute) Multiple lipomas (Acute) Diabetes mellitus (Acute) Lumbar back pain with radiculopathy affecting right lower extremity (Acute) 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 Only on baby aspirin Morbid obesity (Acute) Sacroiliac joint dysfunction of right side (Acute) Sacroiliitis (Acute) Esophagitis (Acute) Ascending aortic aneurysm (Acute) Descending thoracic aortic dissection (Acute) HTN (hypertension) (Acute) Hypercholesteremia (Acute) VALERY. States better since weight loss. Not using CPAP. Was also on home O2. Not any more Smoker- last cigarette yesterday Stuffy nose- denies recent cough or cold Stents in aneurysms Past Medical History Medical History Peripheral vascular disease Morbid obesity Sacroiliac joint dysfunction of right side Sacroiliitis HTN (hypertension) Descending thoracic aortic dissection Ascending aortic aneurysm Leg edema SOB (shortness of breath) Peptic ulcer disease Back pain Anxiety Hx of lipoma Constipation Esophagitis Sacroiliac joint pain Sacroiliitis Hypercholesteremia GERD (gastroesophageal reflux disease) Fatty liver VALERY (obstructive sleep apnea) Pulmonary hypertension Anemia Family History Family History Father Depression Suicide Mother Diabetes Dementia Heart problem Sister Dementia, Onset Age: 73 Sister No problems noted. Brother No problems noted. Family/Other No problems noted. Family history of problems with anesthesia: No Surgical History Surgical History Status post excision of lipoma (~08/01/23) Hx of surgical procedure (06/19/23) Hx of repair of dissecting thoracic aortic aneurysm, [place] type B Hx of colonoscopy History of esophagogastroduodenoscopy (EGD) History of carpal tunnel release of both wrists History of arthroscopy of both knees Hx of cholecystectomy History of Problems with Anesthesia: No Social History Social History Alcohol intake: former Patient Tobacco Use Status: Current someday Tobacco user Years Smoked: 30 +/- Meds Allergies Allergy/AdvReac Type Severity Reaction Status Date / Time duloxetine Allergy Severe Nightmare Verified 04/25/24 09:32 baclofen [BACLOFEN] Allergy Intermediate RASH Verified 04/25/24 09:32 Home Medications ?Medication ?Instructions ?Recorded ?Confirmed ?Last Taken ?Type atorvastatin 40 mg tablet 40 mg PO BEDTIME 05/27/20 02/07/24 08/19/24 History carvedilol 25 mg tablet (Coreg) 25 mg PO BID 05/27/20 02/07/24 08/20/24 History lisinopril 40 mg tablet 40 mg PO DAILY 05/27/20 02/07/24 08/19/24 History aspirin 81 mg tablet,delayed 81 mg PO DAILY 08/31/21 02/07/24 08/20/24 History release (Adult Aspirin Regimen) amlodipine 10 mg tablet 10 mg PO DAILY 06/10/22 02/07/24 08/20/24 History budesonide-formoterol HFA 160 inhalation 12/23/22 02/07/24 08/20/24 History mcg-4.5 mcg/actuation aerosol inhaler (Symbicort) albuterol sulfate 90 mcg/actuation 2 puff inhalation Q6H 05/18/23 02/07/24 08/20/24 History aerosol inhaler (Ventolin HFA) pregabalin 75 mg capsule 75 mg PO BID 01/30/24 02/07/24 08/19/24 History semaglutide (weight loss) 0.25 0.25 mg subcut QWEEK 06/03/24 06/03/24 08/06/24 History mg/0.5 mL subcutaneous pen injector (Yolanda) Exam Height,Weight and Vital Signs: Height 5 ft 10 in Weight 136.78 kg Vital Signs Temp Pulse Resp BP Pulse Ox O2 Del Method 08/20/24 08:19 97.1 F 96 20 159/78 H 96 Room Air Airway Mallampati Class: I TM Dist: >3cm Neck ROM: Full Loose/Missing/Broken Teeth: Yes (Edentulous) Heart: RRR Lungs: CTAB Assessment and Plan Assessment Anesthesia Assessment: Anesthesia Plan Discussed and Chart Reviewed Final Anesthetic Review Family History of Problems with Anesthesia: No History of Problems with Anesthesia: No NPO: Yes ASA Class: III Final Preanesthetic Review: No Changes in Pt Med Stat, Meds/Allgs Chart Reviewed, Consent Obtained/Reviewed and Anes Risks/Benef Reviewed Patient Risk: Intermediate Procedure Risk: Low Assessment/Block/Sedation in SS: Assess/Block/Sedation-SS Anesthetic Plan Anesthetic Plan: TIVA Disposition: Standard PACU
[2024-08-20 08:11] VITALS: BMI 42.9
[2024-08-20 08:19] VITALS: BP 159/78; PULSE 96; RESP 20; TEMP 36.2; O2SAT 96; BMI 43.3
[2024-08-20] MEDS: Lactated Ringers 1,000 ML 100 ML IVCONT (08:36)
--- NOTE | 2024-08-20 08:41 | MHC.SHP ---
Pre-Procedural Eval Section A - 24 Hr Update-Section A only Date of Service: 08/20/24 Section B - Complete if H&P > 30 days Chief Complaint: Esophagitis, unspecified without bleeding Relevant Family History (Specify if Yes): No Relevant Social History: None Present Medications: see Short Stay Collaborative assessment Medical History: Significant History (Peripheral vascular disease Morbid obesity Sacroiliac joint dysfunction of right side Sacroiliitis HTN (hypertension) Descending thoracic aortic dissection Ascending aortic aneurysm Leg edema SOB (shortness of breath) Peptic ulcer disease Back pain Anxiety Hx of lipoma Constipation Esophagitis Sacro) History of Previous Operations: Relevant previous surgery/procedure and date(s) (Status post excision of lipoma (~08/01/23) Hx of surgical procedure (06/19/23) Hx of repair of dissecting thoracic aortic aneurysm, [place] type B Hx of colonoscopy History of esophagogastroduodenoscopy (EGD) History of carpal tunnel release of both wrists History of arthroscopy of both knees Hx of) Allergies: Allergies Allergy/AdvReac Type Severity Reaction Status Date / Time duloxetine Allergy Severe Nightmare Verified 04/25/24 09:32 baclofen [BACLOFEN] Allergy Intermediate RASH Verified 04/25/24 09:32 Review of Systems Sugical H&P ROS: Negative: Constitution, Cardiovascular, Respiratory, Neurological, Psychiatric, Hem-Onc, Allergic/Immunologic, Gastrointestinal, Genitourinary, Musculoskeletal, Integumentary, Endocrine and Eyes/Ears/Nose/Throat Exam Surgical H&P Exam: Normal: HEENT, Normal: Heart, Normal: Lungs, Normal: Extremities, Normal: Abdomen, Normal: Skin and Normal: Neurological Plan Diagnosis/Plan: Unchanged I have reviewed the history and physical and performed a pertinent physical examination on my patient. No changes have occurred unless specified. Time Spent With Patient Time: Total time managing care of this patient today ____ minutes.
--- NOTE | 2024-08-20 10:50 | W.PM.OPN ---
Operative Note Operative Note Date of Service: 08/20/24 Narrative: Procedure Description: EGD Indication: dysphagia Anesthesia: MAC FLEXIBLE TRANSORAL UPPER GASTROINTESTINAL ENDOSCOPY UPPER ENDOSCOPY Consent: Indications for the procedure and potential complications of bleeding, perforation, reaction to medications and missed diagnosis were discussed with the patient and informed consent was obtained. Instrument: Olympus GIF H 190 J mid size upper endoscope Monitoring: Vital signs and clinical assessment, continuous EKG monitoring, Pulse oximetry, Carbon Dioxide monitoring and blood pressure monitoring were done throughout the procedure. Procedure: The patient was placed in the left lateral decubitis position and pre-procedure medications were administered and a bite block was placed. The endoscope was inserted into the mouth and advanced under direct vision to the third part of duodenum. A careful inspection was made as the upper endoscope was withdrawn including a retroflexed examination of the proximal stomach; Findings and interventions are described below. Findings: Larynx:normal Esophagus: GE junction at 43 cm, diaphragm hiatus at 43 cm, erosive esophagitis at GEJ with boggy mucosa, LA grade A, bx taken as well as from distal and proximal esophagus. Balloon dilation done to 20 mm at UES and LES, no tears seen Stomach: Patchy gastric erythema noted in antrum. Biopsies were obtained. Grade 2 flap valve on retroflexed examination of the cardia. Duodenum: Mild bulbar duodenitis bx taken Intervention: Biopsies as noted above, balloon dilation Impression/Findings: gastritis erosive esophagitis gastritis PLAN: if barretts pos then repeat EGD in 3-5 yrs check if taking PPI if h pylori pos then treat
[2024-08-20 10:58] VITALS: BP 126/77; PULSE 74; RESP 17; TEMP 36.1; O2SAT 95
[2024-08-20 11:13] VITALS: BP 120/58; PULSE 69; RESP 16; TEMP 36.1; O2SAT 95
== END 2024-08-20 11:35 | disposition home or self-care (01) ==
PROVIDERS: PCP Internal Medicine; Visit Provider Internal Medicine Gastroenterology
PROC: (CPT 43239; principal; 2024-08-20 10:20)
DX: K22.10 Ulcer of esophagus without bleeding (principal); K29.80 Duodenitis without bleeding; K29.70 Gastritis, unspecified, without bleeding; R13.10 Dysphagia, unspecified; D64.9 Anemia, unspecified; K21.9 Gastro-esophageal reflux disease without esophagitis; I10 Essential (primary) hypertension; E78.00 Pure hypercholesterolemia, unspecified; G47.33 Obstructive sleep apnea (adult) (pediatric); K76.0 Fatty (change of) liver, not elsewhere classified; Z87.891 Personal history of nicotine dependence; Z79.02 Long term (current) use of antithrombotics/antiplatelets; Z79.82 Long term (current) use of aspirin; Z79.899 Other long term (current) drug therapy
CPT/HCPCS: 43249; 43239; 88305; 88313; 88342; C1726; J2003; J2704

== ENCOUNTER → 2024-08-20 08:01 | Outpatient (BNV) | payer MEDICAID, SELFPAY | PROVIDERS: PCP Internal Medicine; Visit Provider Internal Medicine Gastroenterology | DX: R13.10 Dysphagia, unspecified (principal); K20.90 Esophagitis, unspecified without bleeding; K29.80 Duodenitis without bleeding; K29.70 Gastritis, unspecified, without bleeding | CPT/HCPCS: 43239; 43249 ==

== ENCOUNTER 2024-09-13 10:12 | Outpatient (REF) | payer MEDICAID, SELFPAY ==
[2024-09-13 11:33] LABS: Appearance Urine Clear; Color Urine Dark Yellow; Glucose Urine UA Negative (Negative); Leukocyte Esterase Urine Negative (Negative); MANUAL DIFF FLAG NO; Nitrite Urine Negative (Negative); Specific Gravity - Urine >= 1.030 (1.005-1.025); UMIC TRIGGER UA YES; Urine Blood Moderate (2+) (Negative); Urine Ketones Trace mg/dL (Negative); Urine Protein 30 (1+) mg/dL (Neg-Trace)
[2024-09-13 11:37] LABS: Bacteria Urine None Seen (None Seen); Hyaline Casts Urine 0-2 /LPF (0-2); RBC Urine >20 /HPF (0-2); Squamous Epithelial Cell Urine 0-2 /HPF (0-2); WBC Urine 0-5 /HPF (0-5)
[2024-09-13 11:40] LABS: Basophils Absolute Auto 0.1 X10*3/uL (0.0-0.2); Basophils Percent Auto 0.6 % (0-2); Eosinophils Absolute Auto 0.2 X10*3/uL (0.0-0.4); Eosinophils Percent Auto 2.7 % (0-4); Hematocrit 41.6 % (42.0-52.0); Hemoglobin 14.1 g/dl (14.0-18.0); Imm Gran Abs Auto 0.02 X10*3/uL (0.00-0.03); Imm Gran Pct Auto 0.2 % (0.0-0.4); Lymphocytes Absolute Auto 2.6 X10*3/uL (1.2-4.9); Lymphocytes Percent Auto 31.5 % (20-40); Mean Corpuscular HGB Conc 33.9 g/dl (31.0-36.0); Mean Corpuscular Volume 85.6 fL (80.0-98.0); Mean Platelet Volume 8.7 fL (9.4-12.4); Monocytes Absolute Auto 0.6 X10*3/uL (0.1-1.2); Monocytes Percent Auto 7.4 % (2-11); Neutrophils Absolute Auto 4.8 x10*3/uL (2.0-8.3); Neutrophils Percent Auto 57.6 % (45-73); Platelet Count 238 X10*3/uL (160-400); Red Blood Count 4.86 X10*6/uL (4.60-5.80); Red Cell Distribution Width 12.8 % (11.0-16.0); White Blood Count 8.4 X10*3/uL (4.8-10.8)
[2024-09-13 11:45] LABS: Uric Acid 5.2 mg/dL (3.4-7.0)
[2024-09-13 12:16] LABS: Alanine Aminotransferase 27 U/L (0-40); Albumin Level 4.2 g/dL (3.5-5.0); Alkaline Phosphatase 69 U/L (39-117); Anion Gap 9 (12-20); Aspartate Amino Transferase 23 U/L (5-37); Bilirubin Total 0.4 mg/dL (0.0-1.0); Blood Urea Nitrogen 16 mg/dL (9-16); C Reactive Protein 0.41 mg/dL (< or = 0.50); Calcium 8.9 mg/dL (8.4-10.2); Carbon Dioxide 27 mmol/L (22-29); Chloride 107 mmol/L (96-108); Cholesterol 212 mg/dL (<200); Estimated Glomerular Filt Rate > 60; Glucose Random 91 mg/dL (60-115); HDL Cholesterol 31 mg/dL (>40); LDL Cholesterol Calculated 140 mg/dL (<100); Potassium 3.8 mmol/L (3.3-5.1); Sodium 139 mmol/L (135-145); Total Protein 7.5 g/dL (6.5-8.0); Triglycerides 209 mg/dL (<150)
[2024-09-13 12:17] LABS: Erythrocyte Sedimentation Rate 5 MM/HR (0-15)
[2024-09-16 21:44] LABS: A. Phagocytphilium DNA,RT-PCR NOT DETECTED (NOT DETECTED); Babesia Microti DNA, RT-PCR NOT DETECTED (NOT DETECTED); Borrelia Miyamotoi,DNA RT-PCR NOT DETECTED (NOT DETECTED); E.Chaffeensis DNA RT-PCR NOT DETECTED (NOT DETECTED); Lyme(Borrelia ssp)DNA RT-PCR NOT DETECTED (NOT DETECTED)
[2024-09-20 07:52] LABS: Aldolase 4.5 U/L (<=8.1)
== END 2024-09-13 10:13 | disposition home or self-care (01) ==
LOC: HO.HHCL 10:12
PROVIDERS: Internal Medicine; Internal Medicine Hypertension Specialist; Visit Provider Family Medicine
DX: M79.10 Myalgia, unspecified site (principal); Z68.41 Body mass index [BMI] 40.0-44.9, adult; E66.01 Morbid (severe) obesity due to excess calories; E66.813 Obesity, class 3
CPT/HCPCS: 36415; 80053; 80061; 81001; 82085; 82306; 82550; 84550; 85025; 85652; 86140; 87468; 87469; 87478; 87484; 87798

== ENCOUNTER 2024-09-13 16:13 | Emergency (ER) | payer MEDICAID, SELFPAY ==
--- NOTE | ~2024-09-13 | CT_ITS ---
CLINICAL HISTORY: pain generalized CT abdomen and pelvis with contrast Comparison: 06/12/2023 Findings: Lung bases are clear. No acute bony abnormalities. Hepatomegaly without significant focal abnormality. Pancreas, spleen and adrenal glands unremarkable. Cholecystectomy. Bilateral kidneys demonstrate no focal abnormality. No renal stones or hydronephrosis. Descending aortic stent graft partially visualized. No gross change from patient's previous studies. No free fluid or adenopathy in the pelvis. No acute diverticulitis. Appendix unremarkable. Impression: No acute process This document has been electronically signed by: Farnk Eastman MD on 09/14/2024 01:35:44
[2024-09-13 16:27] VITALS: BP 146/70; PULSE 74; RESP 20; TEMP 36.7; O2SAT 96; BMI 40.5
--- NOTE | 2024-09-13 16:30 | ED.GENADULT ---
HPI - General Adult General Chief complaint: Extremity Injury, Lower Stated complaint: [facility] sent for CT scan Time Seen by Provider: 09/13/24 22:23 Source: patient Limitations: no limitations History of Present Illness ED Provider: Emma Paz PA-C HPI narrative: 59-year-old male with a history of morbid obesity, hypertension, hyperlipidemia, diabetes, descending thoracic aortic dissection, ascending aortic aneurysm, sacroiliitis, lumbar disc disease, peripheral vascular disease, presents from primary care with concerns for aortic dissection. Per patient, he had screening labs obtained today at a routine office visit, he was explaining to his primary care provider that he has had ongoing bilateral leg pain for 3 weeks. They sent him here for a dissection rule out. Patient denies chest pain, back pain, shortness of breath, weakness of upper or lower extremities, no paresthesia. While waiting in the waiting room, the patient states he began develop generalized abdominal discomfort with nausea and indigestion. Denies distention, constipation, inability to pass flatus. Denies diarrhea, dysuria, hematuria. No sick contacts with similar symptoms. Related Data Home Medications ?Medication ?Instructions ?Recorded ?Confirmed atorvastatin 40 mg tablet 40 mg PO BEDTIME 05/27/20 02/07/24 carvedilol 25 mg tablet (Coreg) 25 mg PO BID 05/27/20 02/07/24 lisinopril 40 mg tablet 40 mg PO DAILY 05/27/20 02/07/24 aspirin 81 mg tablet,delayed 81 mg PO DAILY 08/31/21 02/07/24 release (Adult Aspirin Regimen) amlodipine 10 mg tablet 10 mg PO DAILY 06/10/22 02/07/24 budesonide-formoterol HFA 160 inhalation 12/23/22 02/07/24 mcg-4.5 mcg/actuation aerosol inhaler (Symbicort) albuterol sulfate 90 mcg/actuation 2 puff inhalation Q6H 05/18/23 02/07/24 aerosol inhaler (Ventolin HFA) pregabalin 75 mg capsule 75 mg PO BID 01/30/24 02/07/24 semaglutide (weight loss) 0.25 0.25 mg subcut QWEEK 06/03/24 06/03/24 mg/0.5 mL subcutaneous pen injector (Yolanda) Previous Rx's ?Medication ?Instructions ?Recorded tadalafil 5 mg tablet (Cialis) 5 mg PO DAILY #30 tabs 07/13/23 sildenafil 100 mg tablet 100 mg PO .PRN PRN sexual activity 10/10/23 #30 tabs alfuzosin 10 mg tablet,extended 10 mg PO DAILY #90 tabs 01/15/24 release 24 hr lansoprazole 30 mg capsule,delayed 30 mg PO DAILY #90 caps 08/23/24 release meloxicam 15 mg tablet 15 mg PO DAILY #7 tabs 09/14/24 methocarbamol 750 mg tablet 750 mg PO TID PRN pain, moderate 09/14/24 #15 tabs sucralfate 100 mg/mL oral 10 ml PO QID PRN indigestion #200 09/14/24 suspension (Carafate) mL Allergies Allergy/AdvReac Type Severity Reaction Status Date / Time duloxetine Allergy Severe Nightmare Verified 09/13/24 16:29 baclofen [BACLOFEN] Allergy Intermediate RASH Verified 09/13/24 16:29 Review of Systems Review of Systems: Yes all other systems are reviewed and are negative Constitutional: Constitutional: Denies fatigue and Denies fever(s) Cardiovascular: Cardiovascular: Denies chest pain and Denies dyspnea Respiratory: Respiratory: Denies dyspnea Gastrointestinal: Gastrointestinal: Reports abdominal pain, Denies constipation, Reports dyspepsia, Denies diarrhea, Reports nausea and Denies vomiting Endocrine: Endocrine: Denies fatigue PMFSH Past Medical History Medical History Peripheral vascular disease Morbid obesity Sacroiliac joint dysfunction of right side Sacroiliitis HTN (hypertension) Descending thoracic aortic dissection Ascending aortic aneurysm Leg edema SOB (shortness of breath) Peptic ulcer disease Back pain Anxiety Hx of lipoma Constipation Esophagitis Sacroiliac joint pain Sacroiliitis Hypercholesteremia GERD (gastroesophageal reflux disease) Fatty liver VALERY (obstructive sleep apnea) Pulmonary hypertension Anemia Surgical History Status post excision of lipoma (~08/01/23) Hx of surgical procedure (06/19/23) Hx of repair of dissecting thoracic aortic aneurysm, Alexander type B Hx of colonoscopy History of esophagogastroduodenoscopy (EGD) History of carpal tunnel release of both wrists History of arthroscopy of both knees Hx of cholecystectomy Family History Family History Father Depression Suicide Mother Diabetes Dementia Heart problem Sister Dementia, Onset Age: 73 Sister No problems noted. Brother No problems noted. Family/Other No problems noted. Social History Social History Alcohol intake: former Patient Tobacco Use Status: Current someday Tobacco user Years Smoked: 30 +/- Smoked in Last 30 Days: No Use of substances other than those prescribed or required for medical reasons: No Advance Directives: No Advance Directives Information Provided: No Physical Exam ED Vital Signs: Vital Signs - 24 hr 09/13/24 16:27 09/13/24 23:22 09/13/24 23:23 Temperature 98.1 F Pulse Rate 74 68 68 Respiratory Rate 20 Blood Pressure 146/70 H 118/50 L 130/65 Pulse Oximetry 96 Oxygen Delivery Method Room Air 09/14/24 01:30 Temperature Pulse Rate Respiratory Rate 18 Blood Pressure Pulse Oximetry Oxygen Delivery Method BMI result Body Mass Index 40.5 Const Other: Alert, well-appearing Orientation/consciousness: patient oriented x3 Resp Effort & Inspection: normal respiratory effort Cardio Other: Normal peripheral perfusion, DP PT pulses +2, radial pulses +2 bilaterally GI Other: Abdomen is soft, obese, mild generalized tenderness without guarding no regions of focal pain Skin Other: Warm dry no rash Neuro General: patient oriented x3, gait normal, no focal motor deficits and CN's II-XI intact bilaterally Extrem Other: Strength 5/5 bilateral upper and lower extremities. Both lower extremities are warm and well perfused, neurovascularly intact as are the upper extremities Psych Other: Cooperative Course Course Course Narrative: RME, this is a rapid medical exam performed by Mikey Michaels please refer to primary provider for complete H&P- 59-year-old male presents for evaluation of leg pain. He was sent from [facility] due to bilateral leg pain. The patient has a history of aortic aneurysm and they are concerned for a dissection. He has good lower extremity pulses bilaterally. His blood pressure is only slightly elevated to 146/70. He has no abdominal pain or chest pain. Plan for labs Reevaluation(s) Reevaluation #1: Patient still complains of indigestion we will try Carafate Reevaluation #2: Carafate was successful, patient's abdominal discomfort is resolved. We will discharge now Medications Administered Discontinued Medications Generic Name Dose Route Start Last Admin Trade Name Lico PRN Reason Stop Dose Admin Sodium Chloride 500 mls @ 500 mls/hr 09/13/24 23:14 09/14/24 01:10 Ns IV 09/14/24 00:13 Infused .Q1H ONE Infusion Iohexol 85 ml 09/14/24 00:38 09/14/24 00:39 Iohexol 350 Mg/Ml 100 Ml Infus..Btl IV 09/14/24 00:39 85 ml ONCE ONE Administration Morphine Sulfate 4 mg 09/13/24 23:14 09/14/24 00:06 Morphine Sulfate 4 Mg/Ml Cartridge IVPUSH 09/13/24 23:15 4 mg ONCE ONE Administration Protocol Ondansetron HCl 4 mg 09/13/24 23:14 09/14/24 00:06 Ondansetron Hcl 4 Mg/2 Ml Vial IVPUSH 09/13/24 23:15 4 mg ONCE ONE Administration Sucralfate 1 gm 09/14/24 01:41 09/14/24 02:06 Sucralfate Oral Suspension 1 Gm/10 Ml Oral.Susp PO 09/14/24 01:42 1 gm ONCE ONE Administration Procedures Procedure Narrative Procedure Narrative: Ultrasound-guided IV 18 gauge 2-1/2 inch IV placed in right upper extremity, adequate blood return flushes well secured with Tegaderm Medical Decision Making Medical Decision Making MDM Narrative: 59-year-old male with a history of morbid obesity, hypertension, hyperlipidemia, diabetes, descending thoracic aortic dissection, ascending aortic aneurysm, sacroiliitis, lumbar disc disease, peripheral vascular disease, presents from primary care with concerns for aortic dissection. Per patient, he had screening labs obtained today at a routine office visit, he was explaining to his primary care provider that he has had ongoing bilateral leg pain for 3 weeks. They sent him here for a dissection rule out. Patient denies chest pain, back pain, shortness of breath, weakness of upper or lower extremities, no paresthesia. While waiting in the waiting room, the patient states he began develop generalized abdominal discomfort with nausea. Denies distention, constipation, inability to pass flatus. Denies diarrhea, dysuria, hematuria. No sick contacts with similar symptoms. Problem: Vascular disease, diabetes , chronic pain including sacroiliitis, lumbar disc disease History: Per patient I have considered the following differential diagnoses: Lumbar radiculopathy, cauda equina, arterial occlusion/claudication, neuropathy, dissection, viral gastroenteritis, GERD Plan: The patient is not dissecting. The patient just developed abdominal pain in the waiting room, his symptoms are vague he has indigestion and nausea with a nonfocal abdominal exam. Perhaps he is developing viral gastroenteritis given such illness has been prevalent within the community. We will obtain a CT scan. I reviewed his screening labs that were obtained earlier today by primary care they are unremarkable. We will give nausea and pain medicine. In regard to the dissection, he has no chest or back pain, furthermore he has had generalized leg pain for 3 weeks. He is neurovascularly intact with a both upper and lower extremities, radial, DP and PT pulses are all equal, the limbs are warm and well perfused. Blood pressures on bilateral upper extremities are within normal variance. Thought about lumbar radiculopathy as he has known lumbar disc disease, however again he has no back pain he has no radiation of pain into the legs, the legs simply ache themselves. Thought about cauda equina, again no back pain, he has no red flag signs symptoms concerning for cord compression. He could have neuropathy, he is diabetic. I have independently reviewed the following tests: Labs: No leukocytosis, not anemic, no electrolyte abnormalities noted CT abdomen and pelvis: Lung bases are clear. No acute bony abnormalities. Hepatomegaly without significant focal abnormality. Pancreas, spleen and adrenal glands unremarkable. Cholecystectomy. Bilateral kidneys demonstrate no focal abnormality. No renal stones or hydronephrosis. Descending aortic stent graft partially visualized. No gross change from patient's previous studies. No free fluid or adenopathy in the pelvis. No acute diverticulitis. Appendix unremarkable. Impression: No acute process This document has been electronically signed by: Frank Eastman MD on 09/14/2024 01:35:44 Discharge Plan Discharge Clinical Impression: GERD (gastroesophageal reflux disease), Indigestion, Chronic leg pain Patient Disposition: Home, Self-Care Instructions: Diet for Stomach Ulcers and Gastritis (ED), Gastroesophageal Reflux Disease (ED), Indigestion (ED), Leg Pain (ED) Additional Instructions: In regard to your abdominal pain, the CT scan was completely normal. Your symptoms improved with an antacid, I feel your symptoms were secondary to poorly controlled indigestion/GERD. See home care instructions. You can use the Carafate 30 minutes before meals to help prevent symptoms. In regard to your leg pain, I am sending you with an anti-inflammatory and a muscle relaxant. Use the meloxicam as directed, this is the anti-inflammatory. Use the methocarbamol, this is a muscle relaxant, as needed for further discomfort. To note this medication will cause drowsiness do not drive or operate machinery while taking this medication. Follow up with your primary care provider as needed. Prescriptions: New sucralfate [Carafate] 100 mg/mL suspension 10 ml PO QID PRN (Reason: indigestion) Qty: 200 0RF Rx Instructions: swish in mouth and swallow; use after food/drink methocarbamol 750 mg tablet 750 mg PO TID PRN (Reason: pain, moderate) Qty: 15 0RF meloxicam 15 mg tablet 15 mg PO DAILY Qty: 7 0RF No Action sildenafil 100 mg tablet 100 mg PO .PRN PRN (Reason: sexual activity) Qty: 30 1RF Rx Instructions: administer 30 minutes to 4 hours before activity, not to exceed one dose daily lansoprazole 30 mg capsule,delayed release(DR/EC) 30 mg PO DAILY Qty: 90 2RF atorvastatin 40 mg Tablet 40 mg PO BEDTIME carvedilol [Coreg] 25 mg Tablet 25 mg PO BID lisinopril 40 mg Tablet 40 mg PO DAILY Wegovy 0.25 mg/0.5 mL pen injector 0.25 mg subcut QWEEK aspirin [Adult Aspirin Regimen] 81 mg tablet,delayed release (DR/EC) 81 mg PO DAILY amlodipine 10 mg tablet 10 mg PO DAILY budesonide-formoterol [Symbicort] 160-4.5 mcg/actuation HFA aerosol inhaler inhalation albuterol sulfate [Ventolin HFA] 90 mcg/actuation HFA aerosol inhaler 2 puff inhalation Q6H pregabalin 75 mg capsule 75 mg PO BID tadalafil [Cialis] 5 mg tablet 5 mg PO DAILY Qty: 30 5RF Rx Instructions: [id number] [facility] [id number] Member [id number] alfuzosin 10 mg tablet extended release 24 hr 10 mg PO DAILY Qty: 90 2RF Rx Instructions: administer after the same meal each day Print Language: Romansh
--- NOTE | 2024-09-13 22:27 | PC.NURSE ---
Pt a&ox4, no signs of distress. Pt ambulates with a steady gait. Pt reports 9/10 bilateral hip/leg pain and abd pain w/ nausea, denies vomiting with onset 2-3 wks ago that has progressively gotten worse. Plan of care ongoing.
[2024-09-13 23:22] VITALS: BP 118/50; PULSE 68
[2024-09-13 23:23] VITALS: BP 130/65; PULSE 68
[2024-09-14] MEDS: ondansetron HCL 4 MG/2 ML VIAL IVPUSH (00:06)
[2024-09-14] MEDS: Morphine Sulfate 4 MG/ML CARTRIDGE IVPUSH (00:06)
[2024-09-14] MEDS: 0.9 % Sodium Chloride 500 ML IV (00:07)
--- NOTE | 2024-09-14 00:12 | PC.NURSE ---
Pt medicated per [facility] Plan of care ongoing.
[2024-09-14] MEDS: iohexoL 350 MG/ML 100 ML INFUS..BTL 85 ML IV (00:39)
[2024-09-14 01:30] VITALS: RESP 18
[2024-09-14] MEDS: Sucralfate Oral Suspension 1 GM/10 ML ORAL.SUSP PO (02:06)
[2024-09-14 03:09] VITALS: BP 139/80; PULSE 78; RESP 14; TEMP 36.6; O2SAT 95
== END 2024-09-14 03:11 | disposition home or self-care (01) ==
PROVIDERS: Emergency Provider Emergency Medicine; PCP Internal Medicine
DX: K21.9 Gastro-esophageal reflux disease without esophagitis (principal); G89.29 Other chronic pain; M79.605 Pain in left leg; M79.604 Pain in right leg; E11.9 Type 2 diabetes mellitus without complications; I10 Essential (primary) hypertension; E78.00 Pure hypercholesterolemia, unspecified; F17.200 Nicotine dependence, unspecified, uncomplicated; Z79.02 Long term (current) use of antithrombotics/antiplatelets; Z79.82 Long term (current) use of aspirin; Z79.899 Other long term (current) drug therapy
CPT/HCPCS: 36573; 74177; 96361; 96374; 96375; 99284; J2270; J2405; Q9967

== ENCOUNTER → 2024-09-14 | Outpatient (BNV) | payer MEDICAID, SELFPAY | PROVIDERS: Emergency Provider Emergency Medicine; PCP Internal Medicine; Visit Provider Radiology Diagnostic Radiology | DX: R10.84 Generalized abdominal pain (principal) | CPT/HCPCS: 74177 ==

== ENCOUNTER 2024-09-20 09:08 | Outpatient (AMB) | payer MEDICAID, SELFPAY ==
--- NOTE | 2024-09-20 09:17 | MHC.OFFVIS ---
Vital Signs 09/20/24 09:24 Height 5 ft 10 in Weight 281 lb 12.012 oz BMI 40.4 BP 162/82 H Blood Pressure Location Lt radial Position Sitting Pulse 74 Pulse Source Pulse Oximeter Pulse Oximetry (%) 96 Oxygen Delivery Method Room Air Intake Visit Reasons: s/p egd Intake Note: ESTABLISHED PATIENT for s/p egd Chief Complaint; RUQ pain. Nausea. Allergies duloxetine Allergy (Severe, Verified 09/23/24 10:12) Nightmare baclofen [BACLOFEN] Allergy (Intermediate, Verified 09/23/24 10:12) RASH HPI HPI s/p egd: Details: 58 yr old m here for f/u RECAP: Initially seen as in patient 05/2019 He initially presented with sudden onset worsening epigastric pain going into the back and associated with few epsidoes of emesis-yellow and nausea. He admitted to chills but no fever, also veda he had cough and runy nose for few days prior. Prior to symptoms had shrimp soup and chicken. He endorsed sever eheartburn and was taking tums prn, he stopped PPI of own volition 1 yr before, also taking motrin daily for back pain as well as beer once a week. In the ER, his vital signs were stable. Labs were stable. He had an abdominal pelvic CT, which showed no acute abnormality. Chest x-ray was negative for consolidation or effusion. 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, endovascular repair of type b aortic dissection noted no acute lesions endoleak from T9 to aortic bifurcation sig spinal degen with osteophytes and loss of lumbar lordosis I saw him for f/u in office and he had worsening dysphagia with RUQ pain going into the back which I suspected was more radicular in origin he was referred to pain mx and plan was for lidocaine patches, possible abdominal cutaneous nerve block further tests: 05/2022--- EGD: erosive gastritis esophagitis possible barretts dilation to 19 mm with balloon of the esophagus Path: moderate chronic inflammation GEJ stomach with mild chronic inflammation US 06/2022 - fatty liver ectatic CBD, stable (hx of cholecystectomy) pancreas not well seen EGD 08/20- balloon dilation, erosive esophagitis, duodenitis INTERIM: He has been doing better with swallowing minimal pain appetite is good no nausea or vomtiing EXAM: GENERAL: The patient is obese. edentulous VITAL SIGNS:see workflow HEENT: Nonicteric sclerae, PERRLA, EOMI. Oropharynx clear. Moist mucous membranes. Conjunctivae appear well perfused. No thyroid mass. CHEST: Chest wall is nontender. HEART: Regular rate and rhythm without murmurs. LUNGS: Clear to auscultation bilaterally. ABDOMEN: Soft, positive bowel sounds,non tender abdo today, no organomegaly.no flank tenderness SKIN: No rash, no excessive bruising, petechiae, or purpura. NEUROLOGIC: Cranial nerves II-XII intact without motor/sensory deficit. psych--nml affect Assessments 1. Esophagitis, with dysphagia- better with dilation 2. Constipation,not an issue now, 3. ruq pain, radicular,, seeing pain mx 4. erosive gastritis, better 5. fatty liver--no MOLINA, LFt have been nml PLAN: 1/ increase lansoprazole to BID dosing 2/ repeat EGD with dilation as needed PFSH Medical History Peripheral vascular disease Morbid obesity Sacroiliac joint dysfunction of right side Sacroiliitis HTN (hypertension) Descending thoracic aortic dissection Ascending aortic aneurysm Leg edema SOB (shortness of breath) Peptic ulcer disease Back pain Anxiety Hx of lipoma Constipation Esophagitis Sacroiliac joint pain Sacroiliitis Hypercholesteremia GERD (gastroesophageal reflux disease) Fatty liver VALERY (obstructive sleep apnea) Pulmonary hypertension Anemia Surgical History Status post excision of lipoma (~08/01/23) Hx of surgical procedure (06/19/23) Hx of repair of dissecting thoracic aortic aneurysm, [place] type B Hx of colonoscopy History of esophagogastroduodenoscopy (EGD) History of carpal tunnel release of both wrists History of arthroscopy of both knees Hx of cholecystectomy Family History Father Depression Suicide Mother Diabetes Dementia Heart problem Sister Dementia, Onset Age: 73 Sister No problems noted. Brother No problems noted. Family/Other No problems noted. Social History Alcohol intake: former Patient Tobacco Use Status: Current someday Tobacco user Years Smoked: 30 +/- Physical Exam Vital Signs: Last Vital Signs Pulse 74 09/20/24 09:24 BP 162/82 H 09/20/24 09:24 Pulse Ox 96 09/20/24 09:24 Oxygen Delivery Method Room Air 09/20/24 09:24 BMI result Body Mass Index 40.4 Assessment & Plan Assessment & Plan (1) Dysphagia: Code(s): R13.10 - Dysphagia, unspecified Category: Medical Plan: as above Medications: Changed From lansoprazole 30 mg PO DAILY 90 caps 2RF To lansoprazole 30 mg PO BID 90 caps 2RF Coding Level of Care Code Est Pt Level 3 (46678) Diagnoses Dysphagia R13.10
[2024-09-20 09:24] VITALS: BP 162/82; PULSE 74; O2SAT 96; BMI 40.4
== END 2024-09-20 09:45 | disposition home or self-care (01) ==
PROVIDERS: PCP Internal Medicine; Visit Provider Internal Medicine Gastroenterology
DX: R13.10 Dysphagia, unspecified (principal)
CPT/HCPCS: 99213

== ENCOUNTER → 2024-09-20 09:08 | Outpatient (BNVA) | payer MEDICAID, SELFPAY | PROVIDERS: PCP Internal Medicine; Visit Provider Internal Medicine Gastroenterology | DX: R13.10 Dysphagia, unspecified (principal) | CPT/HCPCS: 99212 ==

== ENCOUNTER 2024-09-23 10:10 | Outpatient (AMB) | payer MEDICAID, SELFPAY ==
[2024-09-23 10:11] VITALS: BP 118/62; PULSE 74; O2SAT 95; BMI 40.3
--- NOTE | 2024-09-23 10:11 | HO.NEPHOV_ITS ---
Vital Signs 09/23/24 10:11 Height 5 ft 10 in Weight 281 lb BMI 40.3 BP 118/62 Blood Pressure Location Lt brachial Position Sitting Pulse 74 Pulse Source Pulse Oximeter Pulse Oximetry (%) 95 Oxygen Delivery Method Room Air Intake Visit Reasons: Hypertension/ Conf Rubber Curer Required: No Accompanied by: Self / Same As Patient Allergies duloxetine Allergy (Severe, Verified 09/23/24 10:12) Nightmare baclofen [BACLOFEN] Allergy (Intermediate, Verified 09/23/24 10:12) RASH HPI Comments Details: . Silvestre is a pleasant 58-year-old man with a history of obesity, hypertension who was found to have proteinuria by dipstick. He has been referred for the evaluation of proteinuria. He has a history of chronic back pain. MRI in 2022 showed mild to moderate lumbar spondylosis. No severe central canal stenosis or foraminal stenosis within the lumbar spine. He is being seen by pain management. He is on Lyrica. In addition he is also on ibuprofen 200 mg 3 times a day. Silvestre has a history of hypertension. He is on amlodipine 10 mg, carvedilol 25 mg b.i.d. and lisinopril 40 mg q.d.. After taking his medications he feels washed out. Today he has not taken his medications yet. However blood pressure was 118 /66 Renal function has been stable with a creatinine 0.71 in 06/16/2023. Urinalysis showed trace protein. No blood. Renal ultrasonogram was unremarkable. He has a history of aortic dissection. Type B aortic dissection status post interval stent graft repair.(2020). Being followed by Dr. Marino In 2020 CTA showed patent renal arteries on both sides without stenosis 02/01/2024. Underwent a 24 hour ABPM 04/25/24 Doing OK Was in ER for chest pain/back pain Seen by cardiology 09/23/24 Still with back pain - on and off CT scan on 09/14/24 - normal kidneys s/p EGD PENDING SALE TO [facility] Medical History Peripheral vascular disease Morbid obesity Sacroiliac joint dysfunction of right side Sacroiliitis HTN (hypertension) Descending thoracic aortic dissection Ascending aortic aneurysm Leg edema SOB (shortness of breath) Peptic ulcer disease Back pain Anxiety Hx of lipoma Constipation Esophagitis Sacroiliac joint pain Sacroiliitis Hypercholesteremia GERD (gastroesophageal reflux disease) Fatty liver VALERY (obstructive sleep apnea) Pulmonary hypertension Anemia Surgical History Status post excision of lipoma (~08/01/23) Hx of surgical procedure (06/19/23) Hx of repair of dissecting thoracic aortic aneurysm, Chancellor type B Hx of colonoscopy History of esophagogastroduodenoscopy (EGD) History of carpal tunnel release of both wrists History of arthroscopy of both knees Hx of cholecystectomy Family History Father Depression Suicide Mother Diabetes Dementia Heart problem Sister Dementia, Onset Age: 73 Sister No problems noted. Brother No problems noted. Family/Other No problems noted. Social History Alcohol intake: former Patient Tobacco Use Status: Current someday Tobacco user Years Smoked: 30 +/- Physical Exam Vital Signs: Last Vital Signs Pulse 74 09/23/24 10:11 BP 118/62 09/23/24 10:11 Pulse Ox 95 09/23/24 10:11 Oxygen Delivery Method Room Air 09/23/24 10:11 BMI result Body Mass Index 40.3 Comfortable Neck supple no JVD. Lungs entry equal no rales. Heart S1-S2 heard no gallop or rub. Abdomen soft nontender. Neuro alert awake oriented. No asterixis. Extremities no edema. Results Reviewed Nephrology Results: Hgb 14.1 g/dl (14.0-18.0) 09/13/24 WBC 8.4 X10*3/uL (4.8-10.8) 09/13/24 Plt Count 238 X10*3/uL (160-400) 09/13/24 Sodium 139 mmol/L (135-145) 09/13/24 Potassium 3.8 mmol/L (3.3-5.1) 09/13/24 Chloride 107 mmol/L (96-108) 09/13/24 Carbon Dioxide 27 mmol/L (22-29) 09/13/24 BUN 16 mg/dL (9-16) 09/13/24 Creatinine 0.75 mg/dL (0.5-1.4) 09/13/24 Calcium 8.9 mg/dL (8.4-10.2) 09/13/24 Urine Protein 30 (1+) mg/dL (Neg-Trace) H 09/13/24 Urine Creatinine 165.50 mg/dL 06/05/24 Assessment & Plan Assessment & Plan (1) Proteinuria: Code(s): R80.9 - Proteinuria, unspecified Category: Medical (2) HTN (hypertension): Code(s): I10 - Essential (primary) hypertension Category: Medical (3) Microscopic hematuria: Code(s): R31.29 - Other microscopic hematuria Category: Medical Plan: Being followed by Urology Plan . Silvestre is a 50-year-old man with obesity and hypertension with minimal proteinuria. Proteinuria can be related to both hypertensive kidney disease as well as obesity. Urine sediments our plan therefore glomerular nephritis seems unlikely. He has minimal proteinuria with a urine protein creatinine ratio of 0.125. He will benefit from weight loss. Blood pressure needs to be maintained less than 130/80. History of hypertension in a setting obesity. 24 hour ABP and was reviewed. He has been taking Coreg 25 mg 2 tabs b.i.d.. I will switch to 20 mg b.i.d.. Switched lisinopril 40 mg from q.a.m. to q.p.m.. By spacing out the antihypertensives we should be able to avoid hypotensive episodes. \Monitor BP at home Chronic low back pain. Follow up with pain clinic. He is on ibuprofen 800 mg 3 times a day. He is at high risk for [facility] due to the combination of high dose of NSAIDs and lisinopril. Since he is unable to discontinue ibuprofen , we might have to discontinue lisinopril and use alternate antihypertensive agents if the serum creatinine increases. Microhematuria- SErology negative h/o BPH- follows with Orders: Orders Total Protein Urine Random 6 Months R80.9 - Proteinuria, unspecified Basic Metabolic Panel 6 Months R80.9 - Proteinuria, unspecified Creatinine Urine 6 Months R80.9 - Proteinuria, unspecified UA and rflx microscopic 6 Months R80.9 - Proteinuria, unspecified Coding Level of Care Code Est Pt Level 4 (96545) Diagnoses Proteinuria R80.9 HTN (hypertension) I10 Microscopic hematuria R31.29
--- OUTSIDE RECORDS SUMMARY | 2024-09-23 14:45 | XMS_ITS | Referral Summary ---
Author Organization [facility] Address [address] [place] [address] Care Team Providers Care Ip Litigation Paralegal Name Role Phone Sabra Lim Primary Care Provider Allergies Active Allergy Reactions Criticality Noted Date Comments Baclofen Rash Low 01/12/2009 Medications albuterol (PROAIR HFA,VENTOLIN HFA) 90 mcg inhaler INHALE 2 PUFFS BY MOUTH 4 TIMES A DAY NEEDED FOR WHEEZE SHORT OF BREATH FOR 30 DAYS 0 Active Breo Ellipta 100-25 mcg/dose blister with device Inhale 1 puff by mouth daily. 1 Active amLODIPine (NORVASC) 10 mg tablet Take 10 mg by mouth daily. Active atorvastatin (LIPITOR) 40 mg tablet Take 40 mg by mouth daily. Active carvediloL (COREG) 25 mg tablet Take 25 mg by mouth. Active bisacodyL (DULCOLAX) 5 mg EC tablet TAKE 2 TABLETS ON AWAKENING AND 2 TABLETS AT 6 00PM FOR BOWEL PREP [address] (PROTONIX) 40 mg tablet Take 40 mg by mouth daily. Active traMADoL (ULTRAM) 50 mg tabletIndicatio ns:Squamous cell carcinoma of right foot Take half a tab by mouth every 6 hours as needed for pain. OK to increase to 1 full tab every 6 hours as needed for severe pain. 16 tablet 1 Active mupirocin (BACTROBAN) 2% ointmentIndicat ions:Visit for wound check Apply a layer to the foot twice a day after washing with soap and water. Cover with bandage. 30 g 3 1 Active Active Problems No known active problems Social History Tobacco Use Types Packs/Day Years Used Date Smoking Tobacco: Former Smokeless Tobacco: Never Sex and Gender Information Value Date Recorded Sex Assigned at Not on file Legal Sex Male 2:16 PM EDT Gender Identity Not on file Sexual Orientation Not on file Last Filed Vital Signs Vital Sign Reading Time Taken Comments Blood Pressure 160/89 09/22/2020 7:29 AM EST Pulse 70 09/22/2020 7:29 AM EST Temperature - - Respiratory Rate - - Oxygen Saturation - - Inhaled Oxygen Concentration - - Weight 131.5 kg (290 lb) 09/22/2020 7:29 AM EST Height 177.8 cm (5' 10 ) 09/22/2020 7:29 AM EST Body Mass Index 41.61 09/22/2020 7:29 AM EST Plan of Treatment Not on file Insurance [facility] JOSE G [id number] Care Teams Ip Litigation Paralegal Relationship Specialty Start Date End Date Sabra Lim [address] [place] [address] PCP - General 09/04/20
--- OUTSIDE RECORDS SUMMARY | 2024-09-23 14:45 | XMS_ITS | Clinical Summary ---
Author Organization [address] [facility] Address [address] [place] [address] Phone Care Team Providers Care Paster Supervisor Name Role Phone Aaliyah Roche MD Primary Care Provide r Allergies Active Allergy Reactions Criticality Noted Date Comments Baclofen Rash 01/12/2009 Medications Medication Sig Dispensed Refills Start Date End Date Status AMLODIPINE-ATORVASTATI N ORAL Take by mouth. Active CARVEDILOL ORAL Take by mouth. Activ e LISINOPRIL ORAL Take by mouth. Activ e trazodone HCl (TRAZODONE ORAL) Take by mouth. Acti ve semaglutide (Wegovy) 0.5 mg/0.5 mL injection pen Inject 0.5 mg under the skin every 7 (seven) days. 4 mL 07/23/2024 Active Active Problems Problem Noted Date Diagnosed Date Class 3 severe obesity with body mass index (BMI) of 40.0 to 44.9 in adult 06/11/2024 Obstructive sleep apnea 11/09/2020 Overview (06/11/2024): [facility] Polysomnogram Date 08/12/2019. Wt 273#; BMI 39. AHI 46; Obstructive apneas 40; Mixed apneas 0; Central apneas 1; Hypopneas 168; average oxygen saturation 92% (lowest 86%). - Obstructive Sleep Apnea - Severe; mostly Hypopneas and obstructive apneas; without sleep related hypoventilation by 2020 split night polysomnogram. Pure hypercholesterolemia 02/05/2016 Known medical problems 01/29/2016 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 Overview (06/11/2024): 4.2cm dilatation of the ascending thoracic aorta on cardiac MRI serial echo yearly as per cardiology Chronic pain 05/21/2014 Benign prostatic hyperplasia 10/24/2013 Multiple lipomas 07/04/2011 Degenerative arthritis of lumbar spine 1 Radiculitis, lumbosacral 10/20/2010 Hyperlipidemia 01/12/2009 Tobacco use disorder 01/05/2009 Atypical chest pain 05/02/2008 Overview (06/11/2024): Neg cardiac w/u and cta HH 04/2015 [facility] / nuclear stress done Encounters Date Type Department Care Team Description 08/19/2024 10:30 AM EST Nutrition Bariatric Surgery - [address] [phone] Class 3 severe obesity with body mass index (BMI) of 40.0 to 44.9 in adult, unspecified obesity type, unspecified whether serious comorbidity present (CMS/HCC) (Primary Dx) 07/23/2024 11:45 AM EST Office Visit Bariatric Surgery [address] [phone] Francesca Bermudez PA Class 3 severe obesity due to excess calories with serious comorbidity and body mass index (BMI) of 40.0 to 44.9 in adult (CMS/HCC) (Primary Dx) from Last 3 Months Immunizations Name Administration Dates Next Due Influenza trivalent, 0.5mL, preservative free (Fluarix; FluLaval; Fluzone) ages 6mo and older (Afluria) 3 years and older 05/21/2013 Tdap Tetanus diptheria acell ular pertussis (Boostrix; Adacel) 7yo and older 05/21/2013 Surgical History Surgery Date Site/Laterality Comments CHOLECYSTECTOMY 11/22/2013 PROCEDURE: HISTORICAL CHOLECYSTECTOMY; COMMENT: Chun; [facility]. CARPAL TUNNEL RELEASE PROCEDURE: HISTORICAL CARPAL TUNNEL REL BLADDER SURGERY PROCEDURE: HISTORICAL BLADDER SURGERY ESOPHAGOGASTRODUODENOSCOPY 09/24/15 PROCEDURE: [place] ESOPHAGOGASTRODUODENOSCOPY TRANSORAL DIAGNOSTIC; COMMENT: Duodenitis, otherwise normal exam. biopsies taken COLONOSCOPY 09/24/15 PROCEDURE: HISTORICAL COLONOSCOPY; COMMENT: Normal colon and TI Medical History Medical History Date Comments Lumbago 07/29/2005 DX:Lumbago Atypical chest pain 05/02/2008 DX:Atypical chest pain; COMMENT: Neg cardiac w/u and cta HH 05/05 Family history of early CAD DX:F amily history of early CAD; COMMENT: brother 55 Tobacco abuse DX:Tobacco abuse Hyperlipidemia 01/12/2009 DX:Hyperlipidemi a BPH (benign prostatic hypertrophy) 10/24/2013 DX:BPH (benign prostatic hypertrophy) Radiculitis, lumbosacral 10/20/2010 DX:Radi culitis, lumbosacral Degenerative arthritis of lumbar spine 12/01/2010 DX:Degenerative arthritis of lumbar spine Multiple lipomas 07/04/2011 DX:Multiple lip omas Chronic pain 05/21/2014 DX:Chronic pain Ascending aortic aneurysm (CMS/HCC) DX:Ascending aortic aneurysm (HCC); COMMENT: per cardiology, anual ECHO as follow up 04/2016 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 DX :Abnormality of thoracic aorta; COMMENT: 4.2cm dilatation of the ascending thoracic aorta on cardiac MRI serial echo yearly as per cardiology Family History Medical History Relation Name Comments Heart attack Brother 1 age 52 / deceas ed Diabetes Mother heart disease Heart attack Sister 1 age 58 / deceas ed Relation Name Status Comments Brother 1 Brother 2 Alive HTN, [place] at 55 y o Brother 3 mi Father healthy, suicid e Mother DM, HTN Sister 1 Sister 2 Alive HTN, thyroid pr oblem Social History Tobacco Use Types Packs/Day Years Used Date Smoking Tobacco: Former Cigarettes 0.5 38.2 0 1977 - 06/28/2015 Smokeless Tobacco: Never Tobacco Cessation:Counseling Given: Not Answered Alcohol Use Standard Drinks/Week Comments Yes 0 (1 standard drink = 0.6 oz pur e alcohol) Sex and Gender Information Value Date Recorded Sex Assigned at Not on file Gender Identity Not on file Sexual Orientation Not on file Job Start Date Occupation Industry Not on file Not on file Not on file Obstetrics History Last Filed Vital Signs Vital Sign Reading Time Taken Comments Blood Pressure 128/79 07/23/2024 11:51 AM EST Pulse 71 07/23/2024 11:51 AM EST Temperature - - Respiratory Rate - - Oxygen Saturation - - Inhaled Oxygen Concentration - - Weight 130 kg (287 lb) 08/19/2024 10:29 AM EST Height 177.8 cm (5' 10 ) 07/23/2024 11:51 AM EST Body Mass Index 41.18 07/23/2024 11:51 AM EST Plan of Treatment Upcoming Encounters Date Type Department Care Team (Late st Contact Info) Description 10/15/2024 1:00 PM EST Nutrition Bariatric Surgery - [place] [address] [phone] Annabelle George, VALERY [address] [id number] 11/05/2024 1:00 PM EDT Office Visit Bariatric Surgery - [place] [address] [phone] Francesca Bermudez PA [address] [address] Health Maintenance Due Date Last Done Comments Diabetes: Annual Foot Exam 1975 Diabetes: Annual Retina Eye Exam 1975 Hepatitis B Vaccines (1 of 3 - 19+ 3-dose series) 1984 Zoster Vaccines (1 of 2) 1984 Social Influencers of Health Screening 07/31/2022 DTaP,Tdap,and Td Vaccines (2 - Td or Tdap) 05/21/2023 05/21/2013 Diabetes: Annual Urine Albumin-Creatinine Ratio (uACR) 07/23/2024 Diabetes: Blood Sugar Control Test (HGBA1C) 12/04/2024 06/05/2024, 12/30/2015 Diabetes: Annual GFR (Glomerular Filtration Rate) 04/23/2025 04/23/2024, 03/24/2016 Hypertension/CHF/CAD Annual BMP Blood Test 04/23/2025 04/23/2024, 03/24/2016 Depression Screening 06/05/2025 06/05/2024 Colorectal Cancer Screening: FIT-DNA (Cologuard) 06/08/2026 06/08/2023 Cholesterol Screening (Lipid Panel) 05/11/2028 05/11/2023, 03/24/2016 RSV Immunization Patients 60+ Years Old (1 - 1-dose 75+ series) 2040 HIV Screening Completed 05/25/2013 Hepatitis C Screening Completed 05/25/2013 Pneumococcal Vaccine: Pediatrics (0 to 5 Years) and At-Risk Patients (6 to 64 Years) Completed 01/23/2024, 09/20/2019, 05/01/2015 COVID-19 Vaccine Completed 06/05/2024, 06/2023, 09/03/2021 Influenza Vaccine Completed 06/05/2024, , 09/07/2022, Additional history exists HIB Vaccines Aged Out No longer eligi ble based on patient's age to complete this topic HPV Vaccines Aged Out No longer eligi ble based on patient's age to complete this topic Hepatitis A Vaccines Aged Out No long er eligible based on patient's age to complete this topic IPV Vaccines Aged Out No longer eligi ble based on patient's age to complete this topic MMR Vaccines Aged Out No longer eligi ble based on patient's age to complete this topic Meningococcal ACWY Vaccine Aged Out N o longer eligible based on patient's age to complete this topic RSV Immunization Patients Under 20 months Aged Out No longer eligible based on patient's age to complete this topic Varicella Vaccines Aged Out No longer eligible based on patient's age to complete this topic Procedures Procedure Name Priority Date/Time Associated Diagnosis Comments ANNUAL BMP BLOOD TEST Routine 03/24/2016 LIPID PANEL Routine 03/24/2016 HEMOGLOBIN A1C Routine 12/30/2015 HEPATITIS C SCREENING Routine 05/25/2013 HIV SCREENING Routine 05/25/2013 from Last 3 Months or Most Recently Relevant to Health Maintenance Results * Annual BMP Blood Test (03/24/2016) Pathologist [facility] Annual BMP Blood Test abstracted Historical Provider MD NEENA Jimenez * (ABNORMAL) Lipid panel (03/24/2016) Pathologist [facility] LDL/HDL Ratio 5(A) 0 - 4 Triglycerides 257(A) 0 - 150 mg/dL Cholesterol 187 0 - 200 mg/dL HDL 38(A) 40 mg/dL LDL Cholesterol 98 0 - 100 mg/dL Blood Venous blood specimen / Unknown Historical Provider LAB BLOOD ORDERAB LES * Hemoglobin A1c (12/30/2015) Pathologist [facility] Hemoglobin A1C 5.6 4.0 - 6.0 % Blood Venous blood specimen / Unknown Historical Provider LAB BLOOD ORDERAB LES * Hm HIV Screening (05/25/2013) Pathologist [facility] HIV Screening abstracted Historical Provider HEALTH MAINTENANC E * Hepatitis C Screening (05/25/2013) Pathologist [facility] Hepatitis C Screening abstracted Historical Provider MD CHAUDHARY MAINTENANC E from Last 3 Months or Most Recently Relevant to Health Maintenance Care Teams Paster Supervisor Relationship Specialty Start Date End Date Aaliyah Roche MD [address] [phone] PCP - General Internal Medicine 08/24/21
--- OUTSIDE RECORDS SUMMARY | 2024-09-23 14:45 | XMS_ITS | Clinical Summary ---
Author Organization [facility] Address [address] [place] [address] Care Team Providers Care Dungeon Master Name Role Phone Sabra Lim Primary Care [...] 09/22/2020 7:29 AM EST Plan of Treatment Health Maintenance Due Date Last Done Comments Cologuard 1965 Colon Cancer Screening 1965 Colonoscopy 1965 FOBT / Fit Test 1965 HIV Screening 1965 Sigmoidoscopy 1965 Hepatitis B Vaccines (1 of 3 - 19+ 3-dose series) 1984 Zoster Vaccines (1 of 2) 2015 DTaP,Tdap,and Td Vaccines (2 - Td or Tdap) 05/21/2023 05/21/2013 Influenza Vaccine (#1) 2024 05/21/2013 Alcohol/Substance Use Screening 08/28/2024 RSV Vaccine (60+ years old a nd patients) (1 - 1-dose 75+ series) 2040 Pneumococcal Vaccine: Pediat pamela (0-5 Years) and At-Risk Patients (6-64 Years) Aged Out No longer eligible b ased on patient's age to complete this topic Insurance [employer] Care Teams Dungeon Master Relationship Specialty Start Date End Date Sabra Lim [address] [place] [address] JOSE [place] Barrera [id number] PCP - General 09/04/20
== END 2024-09-23 10:30 | disposition home or self-care (01) ==
PROVIDERS: PCP Internal Medicine; Visit Provider Internal Medicine Hypertension Specialist
DX: R80.9 Proteinuria, unspecified (principal); I10 Essential (primary) hypertension; R31.29 Other microscopic hematuria
CPT/HCPCS: 99214

== ENCOUNTER → 2024-09-23 10:10 | Outpatient (BNVA) | payer MEDICAID, SELFPAY | PROVIDERS: PCP Internal Medicine; Visit Provider Internal Medicine Hypertension Specialist | DX: R80.9 Proteinuria, unspecified (principal); R31.29 Other microscopic hematuria; I10 Essential (primary) hypertension; E66.9 Obesity, unspecified; Z68.41 Body mass index [BMI] 40.0-44.9, adult | CPT/HCPCS: 99212 ==

== ENCOUNTER 2024-10-03 09:32 | Outpatient (AMB) | payer MEDICAID, SELFPAY ==
--- OUTSIDE RECORDS SUMMARY | 2024-10-03 09:33 | XMS_ITS | Clinical Summary ---
Author Organization [facility] Address [address] [place] [address] Care Team Providers Care High Lift Mule Operator Name Role Phone Sabra Lim Primary Care [...] patient's age to complete this topic Insurance [employer] Care Teams High Lift Mule Operator Relationship Specialty Start Date End Date Sabra Lim [address] [place] [address] [place] Barrera [phone] PCP - General 09/04/20
--- OUTSIDE RECORDS SUMMARY | 2024-10-03 09:34 | XMS_ITS | Clinical Summary ---
Author Organization 175 [facility] Address [address] [place] [address] Phone Care Team Providers Care Naval Engineer Name Role Phone Aaliyah Roche MD Primary Care Provide r Allergies Active Allergy Reactions Criticality Noted Date Comments Baclofen Rash 01/12/2009 Medications Medication Sig Dispensed Refills Start Date End Date Status AMLODIPINE-ATORVASTAT IN ORAL Take by mouth. Active CARVEDILOL ORAL Take by mouth. Activ e LISINOPRIL ORAL Take by mouth. Activ e trazodone HCl (TRAZODONE ORAL) Take by mouth. Acti ve semaglutide (Wegovy) 0.5 mg/0.5 mL injection pen Inject 0.5 mg under the skin every 7 (seven) days. 4 mL 07/23/2024 Active tirzepatide, weight loss, (Zepbound) 2.5 mg/0.5 mL injection Inject 0.5 mL (2.5 mg total) under the skin every 7 (seven) days for 28 days. 2 mL 09/24/2024 10/22/2024 Active Active Problems Problem Noted Date Diagnosed [...] Neg cardiac w/u and cta HH 04/2015 [facility] / nuclear stress done Encounters Date Type Department Care Team Description 10/02/2024 Telephone Bariatric Surgery [address] [phone] Francesca Bermudez PA prior auth 08/19/2024 10:30 AM EST Nutrition Bariatric Surgery - [address] [phone] Class 3 severe obesity with body mass index (BMI) of 40.0 to 44.9 in adult, unspecified obesity type, unspecified whether serious comorbidity present (CMS/[facility]) (Primary Dx) 07/23/2024 11:45 AM EST Office Visit Bariatric Surgery [address] [phone] Francesca Bermudez PA Class 3 [...] PROCEDURE: HISTORICAL BLADDER SURGERY ESOPHAGOGASTRODUODENOSCOPY 09/24/15 PROCEDURE: [place] ESOPHAGOGASTRODUODENOSCOPY TRANSORAL DIAGNOSTIC; COMMENT: Duodenitis, otherwise normal [...] Comments Brother 1 Brother 2 Alive HTN, [place] at 55 y o Brother 3 mi [...] 1:00 PM EST Nutrition Bariatric Surgery - [place] [address] [phone] [phone] 11/05/2024 1:00 PM EDT Office Visit Bariatric Surgery [facility] [address] [phone] Francesca Bermudez PA [address] [address] Health Maintenance Due Date Last Done Comments [...] Results * Annual BMP Blood Test (03/24/2016) Annual BMP Blood Test abstracted Historical Provider MD NEENA YOUNG E * (ABNORMAL) Lipid panel (03/24/2016) LDL/HDL Ratio 5(A) 0 - 4 Triglycerides 257(A) 0 - 150 mg/dL Cholesterol 187 0 - 200 mg/dL HDL 38(A) 40 mg/dL LDL Cholesterol 98 0 - 100 mg/dL Blood Venous blood specimen / Unknown Historical Provider LAB BLOOD ORDERAB LES * Hemoglobin A1c (12/30/2015) Pathologist [facility] Hemoglobin A1C 5.6 4.0 - 6.0 % Blood Venous blood specimen / Unknown Historical Provider LAB BLOOD ORDERAB LES * HIV Screening (05/25/2013) Pathologist [facility] HIV Screening abstracted Historical Provider MD NEENA YOUNG E * Hepatitis C Screening (05/25/2013) Pathologist [facility] Hepatitis C Screening abstracted Historical Provider MD NEENA YOUNG E from Last 3 Months or Most Recently Relevant to Health Maintenance Care Teams Naval Engineer Relationship Specialty Start Date End Date Aaliyah Roche MD [address] [place] [phone] PCP - General Internal Medicine 08/24/21
--- OUTSIDE RECORDS SUMMARY | 2024-10-03 09:34 | XMS_ITS | Referral Summary ---
Author Organization [facility] Address [address] [place] [address] Care Team Providers Care Parachute Inspector Name Role Phone Sabra Lim Primary Care Provider [phone] Allergies Active Allergy Reactions Criticality Noted Date [...] Plan of Treatment Not on file Insurance [facility] JOSE G [id number] Care Teams Parachute Inspector Relationship Specialty Start Date End Date Sabra Lim [address] [place] [address] PCP - General 09/04/20
--- OUTSIDE RECORDS SUMMARY | 2024-10-03 09:34 | XMS_ITS | Encounter Summary ---
Author Organization [facility] Address [id number] [place] [id number] Care Team Providers Care Drywall Taper Helper Name Role Phone Aaliyah Roche MD Primary Care Provide r Reason for Visit * Reason Onset Date Comments prior auth 10/02/2024 Encounter Details Date Type Department Care Team (Late st Contact Info) Description 10/02/2024 Telephone Bariatric Surgery - [place] [address] [phone] Francesca Bermudez PA [address] [address] prior auth Social History Tobacco Use Types Packs/Day Years Used Date Smoking Tobacco: Former Cigarettes 0.5 38.2 0 1977 - 06/28/2015 Smokeless Tobacco: Never Alcohol Use Standard Drinks/Week Comments Yes 0 (1 standard drink = 0.6 oz pur e alcohol) Sex and Gender Information Value Date Recorded Sex Assigned at Not on file Gender Identity Not on file Sexual Orientation Not on file Job Start Date Occupation Industry Not on file Not on file Not on file documented as of this encounter Progress Notes * Natividad Potts MA - 10/02/2024 10:36 AM EST Pt states his pharmacy called and stated the need a prior auth for his med started. documented in this encounter Plan of Treatment Upcoming Encounters Date Type Department Care Team (Late st Contact Info) Description 10/15/2024 1:00 PM EST Nutrition Bariatric Surgery - [place] [address] [phone] [address] 11/05/2024 1:00 PM EDT Office Visit Bariatric Surgery - [place] [address] [phone] Francesca Bermudez PA [address] [address] documented as of this encounter Visit Diagnoses Not on filedocumented in this encounter Care Teams Drywall Taper Helper Relationship Specialty Start Date End Date Aaliyah Roche MD [address] [phone] PCP - General Internal Medicine 08/24/21 documented as of this encounter
--- NOTE | 2024-10-03 09:41 | A.OFFVIS_ITS ---
Intake Visit Reasons: New Pt - Upper & Lower Back Pain Intake Note: Silvestre is a 59 year old male who presents today as a new patient with complaints of chronic upper & lower back pain. This patient was referred by his PCP at [facility]. Patient was also previously treated for these complaints with the providers at [facility] for lumbar spondylosis. Hx of SIJ Injection with Dr. Reaves 06/01/21 & L3 PNS Stimulator with 80% relief. Last note with them from July 2024 states that he will monitor his pain since device removal. Patient complains of mostly right sided upper and lower back pain, this pain occasionally radiates down his ankles, right side is worse. Patient denies numbness or tingling. Denies other surgeries to his knees, back, neck, or hips. Patient is also complaining of right knee pain. Reports history of gel injections, wishes to repeat these. Allergies duloxetine Allergy (Severe, Verified 10/03/24 09:42) Nightmare baclofen [BACLOFEN] Allergy (Intermediate, Verified 10/03/24 09:42) RASH HPI Comments Details: This patient was referred by his PCP at [facility]. Patient was also previously treated for these complaints with the providers at [facility] for lumbar spondylosis. Hx of SIJ Injection with Dr. Reaves 06/01/21, medial branch blocks, & PNS Stimulator with 80% relief. Last note with them from July 2024 states that he will monitor his pain since device removal. Last lumbar MRI 2022 showed spondylosis, no severe spinal stenosis. He does not think he had epidural injections. Last PT was years ago. But he does home exercises at home, treadmill at home. More pain with treadmill but he can at least do 15 minutes. Upper and lower back pain, goes to the right side to ankle. Denies numbness. No weakness. No bladder/bowel changes. Worse with walking. Better with sitting down. [facility] Medical History Peripheral vascular disease Morbid obesity Sacroiliac joint dysfunction of right side Sacroiliitis HTN (hypertension) Descending thoracic aortic dissection Ascending aortic aneurysm Leg edema SOB (shortness of breath) Peptic ulcer disease Back pain Anxiety Hx of lipoma Constipation Esophagitis Sacroiliac joint pain Sacroiliitis Hypercholesteremia GERD (gastroesophageal reflux disease) Fatty liver VALERY (obstructive sleep apnea) Pulmonary hypertension Anemia Surgical History Status post excision of lipoma (~08/01/23) Hx of surgical procedure (06/19/23) Hx of repair of dissecting thoracic aortic aneurysm, Alexander type B Hx of colonoscopy History of esophagogastroduodenoscopy (EGD) History of carpal tunnel release of both wrists History of arthroscopy of both knees Hx of cholecystectomy Family History Father Depression Suicide Mother Diabetes Dementia Heart problem Sister Dementia, Onset Age: 73 Sister No problems noted. Brother No problems noted. Family/Other No problems noted. Social History Alcohol intake: former Patient Tobacco Use Status: Current someday Tobacco user Years Smoked: 30 +/- Review of Systems Const All systems reviewed & are unremarkable except as noted in HPI and below Physical Exam Constitutional: Patient appears to be in no acute distress, well nourished and well developed. Patient was appropriately conversant and oriented. Good historian. MSK: No specific abnormalities found on inspection of the spine and all extremities. Tender on rhomboids area right side. Tender on right SI joint. Nontender on lumbar paraspinals. Nontender on lumbar facets or spinous processes. Nontender on thoracic facets or spinous processes. Nontender and GT. Lumbar ROM was full. Bilateral hip, knee and ankle ROM WNL. No ligamentous laxity or crepitance. No increased effusion. Slump sit negative. FABERE test positive right. Strength is 5/5 in all muscle groups tested. No increased tone noted. Neurological: Neurologic examination of the upper and lower extremities was nonfocal with intact sensation, muscle stretch reflexes and without focal motor deficits . Ashton?s negative bilaterally. Babinski was down going bilaterally. Clonus was negative. Gait is non-antalgic without loss of balance. Results Reviewed Results Reviewed: I independently reviewed the results of the following: Lumbar MRI did not show severe spinal stenosis or nerve impingement. Ordering Physician: Catarina Almanzar Date of Service: 10/18/22 Procedure(s): MR lumbar spine wo con Accession Number(s): [id number] cc: Catarina Almanzar POURER BUGGY LADLE~ MR LUMBAR SPINE WITHOUT CONTRAST CLINICAL INFORMATION: Lumbar region spondylosis. COMPARISON: None available. TECHNIQUE: MRI of the lumbar spine was obtained using routine sequences without contrast. FINDINGS: There are 5 nonrib-bearing lumbar-type vertebral bodies. Lumbar alignment is normal. There is no bone marrow edema. There are no acute fractures. Vertebral body heights are maintained. There is mild disc volume loss and there is disc desiccation at the L1-L2, L2-L3, and L3-L4 levels. The remaining disc lines are preserved and the remaining disc remain well-hydrated. Conus terminates at the T12-L1 level. There is artifact from a known aortic stent graft and abdominal aortic pathology is better appreciated on prior CT exams. Please see those reports for further details. L1-L2: Far left lateral disc osteophyte protrusion approaches without definitely contacting the extraforaminal left L1 nerve root. No central canal stenosis and no foraminal stenosis. L2-L3: Small annular disc bulge and mild bilateral hypertrophic facet arthropathy. No central canal stenosis and no foraminal stenosis. L3-L4: There is a diffuse annular disc bulge and there is moderate bilateral hypertrophic facet arthropathy and ligamentum flavum thickening. No central canal stenosis there is mild foraminal encroachment bilaterally. L4-L5: There is a diffuse annular disc bulge and there is moderate bilateral hypertrophic facet arthropathy. No central canal stenosis. Mild foraminal encroachment bilaterally. L5-S1: Diffuse annular disc bulge and moderate bilateral hypertrophic facet arthropathy. No central canal stenosis. Mild bilateral foraminal encroachment. MR/MR lumbar spine wo con IMPRESSION: Mild to moderate lumbar spondylosis. No severe central canal stenosis and no severe foraminal stenosis within the lumbar spine. I reviewed records from the following: Pain management Assessment & Plan Assessment & Plan (1) Sacroiliac joint dysfunction of right side: Code(s): M53.3 - Sacrococcygeal disorders, not elsewhere classified Category: Medical (2) Lumbar back pain with radiculopathy affecting right lower extremity: Code(s): M54.16 - Radiculopathy, lumbar region Category: Medical Plan Chronic lower back pain radiating to right leg, with secondary myofascial pain. Also tender right SI joint, but previous SI joint injections have not helped. Patient has not had any lumbar epidural injections. Last MRI did not show any significant spinal stenosis. Patient would like to try other injections such as epidural. I discussed that I do not do interventional injections that need fluoroscopy. But I can give him a referral to someone that I would trust locally. We may need a new MRI to see if spinal stenosis has worsened or if there is any nerve impingement in the right side. Lumbar MRI ordered. Assessment and plan discussed with patient, and patient was agreeable. All questions were answered thoroughly. Jocy Ngo MD, VIKKI Board Certified, [place] Board [employer] and Rehabilitation (ABPMR) Board Certified, [place] Board [employer] Electrodiagnostic Medicine (ABEM) Orders: Orders MR lumbar spine wo con Today M53.3 - Sacrococcygeal disorders, not elsewhere classified, M54.16 - Radiculopathy, lumbar region Coding Level of Care Code New Pt Level 4 (57124) Diagnoses Sacroiliac joint dysfunction of right side M53.3 Lumbar back pain with radiculopathy affecting right lower extremity M54.16
== END 2024-10-03 10:03 | disposition home or self-care (01) ==
LOC: HO.HOS 09:32
PROVIDERS: PCP Internal Medicine; Visit Provider Physical Medicine & Rehabilitation
DX: M53.3 Sacrococcygeal disorders, not elsewhere classified (principal); M54.16 Radiculopathy, lumbar region
CPT/HCPCS: 99203

== ENCOUNTER → 2024-10-03 09:32 | Outpatient (BNVA) | payer MEDICAID, SELFPAY | PROVIDERS: PCP Internal Medicine; Visit Provider Physical Medicine & Rehabilitation | DX: M53.3 Sacrococcygeal disorders, not elsewhere classified (principal); M54.16 Radiculopathy, lumbar region | CPT/HCPCS: 99202 ==

== ENCOUNTER → 2024-10-03 18:53 | Outpatient (BNV) | payer MEDICAID, SELFPAY | PROVIDERS: Visit Provider Radiology Diagnostic Radiology | DX: M54.16 Radiculopathy, lumbar region (principal) | CPT/HCPCS: 72148 ==

== ENCOUNTER 2024-11-15 08:33 | Outpatient (REF) | payer MEDICAID, SELFPAY ==
--- NOTE | ~2024-11-15 | XR_ITS ---
CLINICAL HISTORY: M16.12 - Unilateral primary osteoarthritis, left hip 2 view left hip 2 view right hip Comparison: CT/SR - CT ABDOMEN PELVIS W IV CON - 09/14/24 00:30 EST Findings: No acute fracture or dislocation. [id number] degenerative changes of the bilateral hip joints, left slightly greater than right. Degenerative changes at the pubic symphysis joint. The partially imaged sacroiliac joints appear relatively maintained. The soft tissues are unremarkable. IMPRESSION: No acute findings. [id number] degenerative changes of the bilateral hip joints, left slightly greater than right. This document has been electronically signed by: Alyssa Holland MD on 11/16/2024 07:29:41
--- NOTE | ~2024-11-15 | XR_ITS ---
CLINICAL HISTORY: M25.551 - Pain in right hip 2 view left hip 2 view right hip Comparison: CT/SR - CT ABDOMEN PELVIS W IV CON - 09/14/24 00:30 EST Findings: No acute fracture or dislocation. Ulrb-ib-[id number] degenerative changes of the bilateral hip joints, left slightly greater than right. Degenerative changes at the pubic symphysis joint. The partially imaged sacroiliac joints appear relatively maintained. The soft tissues are unremarkable. IMPRESSION: No acute findings. Jpbq-dh-zrbtcgkh degenerative changes of the bilateral hip joints, left slightly greater than right. This document has been electronically signed by: Alyssa Holland MD on 11/16/2024 07:31:04
== END 2024-11-15 08:34 | disposition home or self-care (01) ==
LOC: HO.HOSX 08:33
PROVIDERS: Visit Provider Physical Medicine & Rehabilitation
DX: M53.3 Sacrococcygeal disorders, not elsewhere classified (principal); M16.12 Unilateral primary osteoarthritis, left hip; M25.551 Pain in right hip; R10.31 Right lower quadrant pain; M47.816 Spondylosis without myelopathy or radiculopathy, lumbar region; G89.29 Other chronic pain
CPT/HCPCS: 73502; 99212

== ENCOUNTER 2024-11-15 08:33 | Outpatient (AMB) | payer MEDICAID, SELFPAY ==
--- NOTE | 2024-11-15 08:42 | A.OFFVIS_ITS ---
Vital Signs 11/15/24 08:43 Height 5 ft 10 in Weight 281 lb BMI 40.3 Intake Visit Reasons: OV- Lumbar Spine MRI review Intake Note: Gómez 59 yr old male presents today for his MRI review for his lumbar spine. States his pain has worsen. Allergies duloxetine Allergy (Severe, Verified 11/15/24 08:43) Nightmare baclofen [BACLOFEN] Allergy (Intermediate, Verified 11/15/24 08:43) RASH Medication List - Last Reconciled 11/15/24 by Jocy Ngo MD albuterol sulfate 90 mcg/actuation (Ventolin HFA) 2 puffs inhalation Q6H alfuzosin ER 10 mg PO DAILY amlodipine 10 mg PO DAILY aspirin (Adult Aspirin Regimen) 81 mg PO DAILY atorvastatin 40 mg PO BEDTIME budesonide-formoterol 160-4.5 mcg/actuation (Symbicort) inhalation carvedilol (Coreg) 25 mg PO BID lansoprazole 30 mg PO BID lisinopril 20 mg PO QAM sucralfate (Carafate) 10 mL PO QID PRN tadalafil (Cialis) 5 mg PO DAILY HPI Comments Details: This patient was referred by his PCP at [facility]. Patient was also previously treated for these complaints with the providers at [facility] for lumbar spondylosis. Hx of SIJ Injection with Dr. Reaves 06/01/21, medial branch blocks, & PNS Stimulator with 80% relief. Last note with them from July 2024 states that he will monitor his pain since device removal. Last lumbar MRI 2022 showed spondylosis, no severe spinal stenosis. He does not think he had epidural injections. Last PT was years ago. But he does home exercises at home, treadmill at home. More pain with treadmill but he can at least do 15 minutes. Upper and lower back pain, goes to the right side to ankle. Denies numbness. No weakness. No bladder/bowel changes. Worse with walking. Better with sitting down. Initially presented with right-sided back and SI joint pain. Here to review lumbar MRI that was done at an outside facility. Images reviewed with patient showing foraminal stenosis left L5-S1 and L3-4, spondylosis, no significant spinal stenosis. Of note, patient denies pain on the left side. Most of his pain/all of his pain is right SI joint area, radiating up to the quadratus lumborum, and some groin pain as well. He denies any numbness on the right foot. [facility] Medical History Peripheral vascular disease Morbid obesity Sacroiliac joint dysfunction of right side Sacroiliitis HTN (hypertension) Descending thoracic aortic dissection Ascending aortic aneurysm Leg edema SOB (shortness of breath) Peptic ulcer disease Back pain Anxiety Hx of lipoma Constipation Esophagitis Sacroiliac joint pain Sacroiliitis Hypercholesteremia GERD (gastroesophageal reflux disease) Fatty liver VALERY (obstructive sleep apnea) Pulmonary hypertension Anemia Surgical History Status post excision of lipoma (~08/01/23) Hx of surgical procedure (06/19/23) Hx of repair of dissecting thoracic aortic aneurysm, Alexander type B Hx of colonoscopy History of esophagogastroduodenoscopy (EGD) History of carpal tunnel release of both wrists History of arthroscopy of both knees Hx of cholecystectomy Family History Father Depression Suicide Mother Diabetes Dementia Heart problem Sister Dementia, Onset Age: 73 Sister No problems noted. Brother No problems noted. Family/Other No problems noted. Social History Alcohol intake: former Patient Tobacco Use Status: Current someday Tobacco user Years Smoked: 30 +/- Physical Exam Vital Signs: BMI result Body Mass Index 40.3 Constitutional: Patient appears to be in no acute distress, well nourished and well developed. Patient was appropriately conversant and oriented. Good historian. MSK: No specific abnormalities found on inspection of the spine and all extremities. Tender on right SI joint. Nontender on lumbar paraspinals. Nontender on lumbar facets or spinous processes. Nontender on thoracic facets or spinous processes. Nontender and GT. Lumbar ROM was full. Bilateral hip, knee and ankle ROM WNL. No ligamentous laxity or crepitance. No increased effusion. Slump sit negative. FABERE test positive right. Strength is 5/5 in all muscle groups tested. No increased tone noted. Neurological: Neurologic examination of the upper and lower extremities was nonfocal with intact sensation, muscle stretch reflexes and without focal motor deficits . Ashton?s negative bilaterally. Babinski was down going bilaterally. Clonus was negative. Gait is non-antalgic without loss of balance. Results Reviewed Results Reviewed: I independently reviewed the results of the following: New Lumbar MRI did not show severe spinal stenosis or nerve impingement. Done at outside facility. See above. Ordering Physician: Catarina Almanzar Date of Service: 10/18/22 Procedure(s): MR lumbar spine wo con Accession Number(s): [id number] cc: Catarina Almanzar~ MR LUMBAR SPINE WITHOUT CONTRAST CLINICAL INFORMATION: Lumbar region spondylosis. COMPARISON: None available. TECHNIQUE: MRI of the lumbar spine was obtained using routine sequences without contrast. FINDINGS: There are 5 nonrib-bearing lumbar-type vertebral bodies. Lumbar alignment is normal. There is no bone marrow edema. There are no acute fractures. Vertebral body heights are maintained. There is mild disc volume loss and there is disc desiccation at the L1-L2, L2-L3, and L3-L4 levels. The remaining disc lines are preserved and the remaining disc remain well-hydrated. Conus terminates at the T12-L1 level. There is artifact from a known aortic stent graft and abdominal aortic pathology is better appreciated on prior CT exams. Please see those reports for further details. L1-L2: Far left lateral disc osteophyte protrusion approaches without definitely contacting the extraforaminal left L1 nerve root. No central canal stenosis and no foraminal stenosis. L2-L3: Small annular disc bulge and mild bilateral hypertrophic facet arthropathy. No central canal stenosis and no foraminal stenosis. L3-L4: There is a diffuse annular disc bulge and there is moderate bilateral hypertrophic facet arthropathy and ligamentum flavum thickening. No central canal stenosis there is mild foraminal encroachment bilaterally. L4-L5: There is a diffuse annular disc bulge and there is moderate bilateral hypertrophic facet arthropathy. No central canal stenosis. Mild foraminal encroachment bilaterally. L5-S1: Diffuse annular disc bulge and moderate bilateral hypertrophic facet arthropathy. No central canal stenosis. Mild bilateral foraminal encroachment. MR/MR lumbar spine wo con IMPRESSION: Mild to moderate lumbar spondylosis. No severe central canal stenosis and no severe foraminal stenosis within the lumbar spine. I reviewed records from the following: Pain management Assessment & Plan Assessment & Plan (1) Chronic right SI joint pain: Code(s): M53.3 - Sacrococcygeal disorders, not elsewhere classified; G89.29 - Other chronic pain Category: Medical (2) Lumbar spondylosis: Code(s): M47.816 - Spondylosis without myelopathy or radiculopathy, lumbar region Category: Medical (3) Right groin pain: Code(s): R10.31 - Right lower quadrant pain Category: Medical Plan MRI lumbar spine does not really show symptoms that would explain his right- sided pain. Exam still focal on right SI joint. And he is complaining of right groin pain. Attenuation investigate further. Doing hip x-ray today to rule out osteoarthritis. Mentioned incidental finding of kidney CS on MRI. Patient says he is not aware but he does follow with a language and literature division chair. We will send the results to them. We will consider referral to pain management for further SI joint injection, or medial branch block? Depending on hip x-ray results today. Assessment and plan discussed with patient, and patient was agreeable. All questions were answered thoroughly. Follow up/telehealth after x-ray results. Jocy Ngo MD, VIKKI Board Certified, [place] Board [employer] and Rehabilitation (ABPMR) Board Certified, [place] Board [employer] Electrodiagnostic Medicine (ABEM) Orders: Orders XR hip RT min 2V Today M25.551 - Pain in right hip XR hip LT min 2V Today M16.12 - Unilateral primary osteoarthritis, left hip Coding Level of Care Code Est Pt Level 4 (46820) Diagnoses Chronic right SI joint pain M53.3; G89.29 Lumbar spondylosis M47.816 Right groin pain R10.31
[2024-11-15 08:43] VITALS: BMI 40.3
== END 2024-11-15 09:08 | disposition home or self-care (01) ==
LOC: HO.HOS 08:33
PROVIDERS: Visit Provider Physical Medicine & Rehabilitation
DX: M53.3 Sacrococcygeal disorders, not elsewhere classified (principal); G89.29 Other chronic pain; M47.816 Spondylosis without myelopathy or radiculopathy, lumbar region; R10.31 Right lower quadrant pain
CPT/HCPCS: 99214

== ENCOUNTER → 2024-11-15 08:59 | Outpatient (BNV) | payer MEDICAID, SELFPAY | PROVIDERS: Visit Provider Radiology Diagnostic Radiology | DX: M17.0 Bilateral primary osteoarthritis of knee (principal) | CPT/HCPCS: 73502 ==

== ENCOUNTER 2024-11-21 08:40 | Outpatient (AMB) | payer MEDICAID, SELFPAY ==
--- NOTE | 2024-11-21 08:41 | MHC.OFFVIS ---
Intake Visit Reasons: OV - low back pain w/ radiculopathy Intake Note: Silvestre is a 59 year old male who presents today VIA Telephone for a review of his bilateral hip Xray. Patient complains of right sided Lower back pain as well as groin pain Allergies duloxetine Allergy (Severe, Verified 11/21/24 08:42) Nightmare baclofen [BACLOFEN] Allergy (Intermediate, Verified 11/21/24 08:42) RASH Medication List - Last Reconciled 11/21/24 by Jocy Nog MD albuterol sulfate 90 mcg/actuation (Ventolin HFA) 2 puffs inhalation Q6H alfuzosin ER 10 mg PO DAILY amlodipine 10 mg PO DAILY aspirin (Adult Aspirin Regimen) 81 mg PO DAILY atorvastatin 40 mg PO BEDTIME budesonide-formoterol 160-4.5 mcg/actuation (Symbicort) inhalation carvedilol (Coreg) 25 mg PO BID lansoprazole 30 mg PO BID lisinopril 20 mg PO QAM sucralfate (Carafate) 10 mL PO QID PRN tadalafil (Cialis) 5 mg PO DAILY HPI Comments Details: This patient was referred by his PCP at [facility]. Patient was also previously treated for these complaints with the providers at [facility] for lumbar spondylosis. Hx of SIJ Injection with Dr. Reaves 06/01/21, medial branch blocks, & PNS Stimulator with 80% relief. Last note with them from July 2024 states that he will monitor his pain since device removal. Last lumbar MRI 2022 showed spondylosis, no severe spinal stenosis. He does not think he had epidural injections. Last PT was years ago. But he does home exercises at home, treadmill at home. More pain with treadmill but he can at least do 15 minutes. Upper and lower back pain, goes to the right side to ankle. Denies numbness. No weakness. No bladder/bowel changes. Worse with walking. Better with sitting down. Initially presented with right-sided back and SI joint pain. Lumbar MRI that was done at an outside facility. Images reviewed with patient showing foraminal stenosis left L5-S1 and L3-4, spondylosis, no significant spinal stenosis. Of note, patient denies pain on the left side. Most of his pain/all of his pain is right SI joint area, radiating up to the quadratus lumborum, and some groin pain as well. He denies any numbness on the right foot. He also reported right groin pain. X-ray done, showing hip degenerative changes. [facility] Medical History Peripheral vascular disease Morbid obesity Sacroiliac joint dysfunction of right side Sacroiliitis HTN (hypertension) Descending thoracic aortic dissection Ascending aortic aneurysm Leg edema SOB (shortness of breath) Peptic ulcer disease Back pain Anxiety Hx of lipoma Constipation Esophagitis Sacroiliac joint pain Sacroiliitis Hypercholesteremia GERD (gastroesophageal reflux disease) Fatty liver VALERY (obstructive sleep apnea) Pulmonary hypertension Anemia Surgical History Status post excision of lipoma (~08/01/23) Hx of surgical procedure (06/19/23) Hx of repair of dissecting thoracic aortic aneurysm, Alexander type B Hx of colonoscopy History of esophagogastroduodenoscopy (EGD) History of carpal tunnel release of both wrists History of arthroscopy of both knees Hx of cholecystectomy Family History Father Depression Suicide Mother Diabetes Dementia Heart problem Sister Dementia, Onset Age: 73 Sister No problems noted. Brother No problems noted. Family/Other No problems noted. Social History Alcohol intake: former Patient Tobacco Use Status: Current someday Tobacco user Years Smoked: 30 +/- Telehealth Telehealth Telehealth Platform: Telephone Location of provider rendering services: practice address Location of patient: address on file Patient Identification confirmed using: Name, : Yes Telehealth method: voice only Patient verbally consented to treatment: Yes Patient verbally consented to billing insurance company: Yes Patient informed of any privacy concerns related to visit: Yes Minutes spent on Phone/Video with Pt.: 15 Results Reviewed Results Reviewed: I independently reviewed the results of the following: New Lumbar MRI did not show severe spinal stenosis or nerve impingement. Done at outside facility. See above. 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 COMPARISON: None available. TECHNIQUE: MRI of the lumbar spine was obtained using routine sequences without contrast. FINDINGS: There are 5 nonrib-bearing lumbar-type vertebral bodies. Lumbar alignment is normal. There is no bone marrow edema. There are no acute fractures. Vertebral body heights are maintained. There is mild disc volume loss and there is disc desiccation at the L1-L2, L2-L3, and L3-L4 levels. The remaining disc lines are preserved and the remaining disc remain well-hydrated. Conus terminates at the T12-L1 level. There is artifact from a known aortic stent graft and abdominal aortic pathology is better appreciated on prior CT exams. Please see those reports for further details. L1-L2: Far left lateral disc osteophyte protrusion approaches without definitely contacting the extraforaminal left L1 nerve root. No central canal stenosis and no foraminal stenosis. L2-L3: Small annular disc bulge and mild bilateral hypertrophic facet arthropathy. No central canal stenosis and no foraminal stenosis. L3-L4: There is a diffuse annular disc bulge and there is moderate bilateral hypertrophic facet arthropathy and ligamentum flavum thickening. No central canal stenosis there is mild foraminal encroachment bilaterally. L4-L5: There is a diffuse annular disc bulge and there is moderate bilateral hypertrophic facet arthropathy. No central canal stenosis. Mild foraminal encroachment bilaterally. L5-S1: Diffuse annular disc bulge and moderate bilateral hypertrophic facet arthropathy. No central canal stenosis. Mild bilateral foraminal encroachment. MR/MR lumbar spine wo con IMPRESSION: Mild to moderate lumbar spondylosis. No severe central canal stenosis and no severe foraminal stenosis within the lumbar spine. Ordering Physician: Jocy Estrella Date of Service: 11/15/24 Procedure(s): XR hip RT min 2V Accession Number(s): [id number] cc: Physician,Unknown ; Jocy Estrella~ CLINICAL HISTORY: M25.551 - Pain in right hip 2 view left hip 2 view right hip Comparison: CT/SR - CT ABDOMEN PELVIS W IV CON - 09/14/24 00:30 EST Findings: No acute fracture or dislocation. [id number]-[id number] degenerative changes of the bilateral hip joints, left slightly greater than right. Degenerative changes at the pubic symphysis joint. The partially imaged sacroiliac joints appear relatively maintained. The soft tissues are unremarkable. IMPRESSION: No acute findings. Qjyd-oc-jdwbyuoa degenerative changes of the bilateral hip joints, left slightly greater than right. This document has been electronically signed by: Alyssa Holland MD on 11/16/2024 07:31:04 I reviewed records from the following: Pain management Assessment & Plan Assessment & Plan (1) Right groin pain: Code(s): R10.31 - Right lower quadrant pain Category: Medical (2) Degenerative joint disease of right hip: Code(s): M16.11 - Unilateral primary osteoarthritis, right hip Category: Medical Qualifiers: Osteoarthritis type: primary Qualified Code(s): M16.11 - Unilateral primary osteoarthritis, right hip (3) Chronic right SI joint pain: Code(s): M53.3 - Sacrococcygeal disorders, not elsewhere classified; G89.29 - Other chronic pain Category: Medical (4) Lumbar spondylosis: Code(s): M47.816 - Spondylosis without myelopathy or radiculopathy, lumbar region Category: Medical Plan MRI lumbar spine does not really show symptoms that would explain his right-sided pain. Exam still focal on right SI joint. And he is complaining of right groin pain. Hip x-rays confirms degenerative changes. I would suggest trial of right hip intra-articular joint injection, which could be both diagnostic and therapeutic at the same time. Patient eager to proceed. Referral to pain management placed for the injection. Assessment and plan discussed with patient, and patient was agreeable. All questions were answered thoroughly. Follow up after injection. Jocy Ngo MD, VIKKI Board Certified, [place] Board of [employer] Medicine and Rehabilitation (ABPMR) Board Certified, [place] Board of Electrodiagnostic Medicine (ABEM) Orders: Referrals Pain Management Referral M16.11 - Unilateral primary osteoarthritis, right hip, R10.31 - Right lower quadrant pain Coding Level of Care Code Tele Est Pt Level 3 (67812) Diagnoses Right groin pain R10.31 Primary osteoarthritis of right hip M16.11 Osteoarthritis type: primary Chronic right SI joint pain M53.3; G89.29 Lumbar spondylosis M47.816
== END 2024-11-21 09:40 | disposition home or self-care (01) ==
PROVIDERS: Visit Provider Physical Medicine & Rehabilitation
DX: R10.31 Right lower quadrant pain (principal); M16.11 Unilateral primary osteoarthritis, right hip; M53.3 Sacrococcygeal disorders, not elsewhere classified; G89.29 Other chronic pain; M47.816 Spondylosis without myelopathy or radiculopathy, lumbar region
CPT/HCPCS: 99213

== ENCOUNTER 2024-12-19 06:22 | Outpatient (REF) | payer MEDICAID, SELFPAY ==
--- NOTE | ~2024-12-19 | FL_ITS ---
EXAMINATION: XR FLUOROSCOPY WITH IMAGES CLINICAL INFORMATION: Right hip pain management injection. COMPARISON: None available. TECHNIQUE: Fluoroscopy provided to: Dr. Doyle Fluoroscopy time: 0.0 minutes DAP: 0.0447 mGycm2 Images: 2 FINDINGS: 2 spot images obtained during right hip pain management injection. Please refer to the full operative report for details. FL/FL guidance in treatment room IMPRESSION: Fluoroscopic guidance. Electronically signed by: Bryan Delgado MD 12/20/2024 03:36 PM EDT
--- OUTSIDE RECORDS SUMMARY | 2024-12-19 06:25 | XMS_ITS | Referral Summary ---
Author Organization [facility] Address [address] [place] [address] Care Team Providers Care Regional Branch Manager Name Role Phone Sabra Lim Primary Care Provider [phone] Allergies Active Allergy Reactions Criticality Noted Date [...] Plan of Treatment Not on file Insurance [facility] JOSE G [id number] Care Teams Regional Branch Manager Relationship Specialty Start Date End Date Sabra Lim [address] [place] [address] PCP - General 09/04/20
--- OUTSIDE RECORDS SUMMARY | 2024-12-19 06:25 | XMS_ITS | Clinical Summary ---
Author Organization [facility] Address [address] [place] [address] Care Team Providers Care Vice President Pharmacy Name Role Phone Sabra Lim Primary Care Provider [phone] Allergies Active Allergy Reactions Criticality Noted Date [...] (1 of 3 - 19+ 3-dose series) 03/28 Pneumococcal Vaccine: 50+ Years (1 of 1 - PCV) 015 Zoster Vaccines (1 of 2) 2015 DTaP,Tdap,and Td Vaccines (2 - Td or Tdap) 05/21/2023 05/21/2013 Alcohol/Substance Use Screening 08/28/2024 Influenza Vaccine (Season Ended) 2025 05/21/20 13 RSV Vaccine (60+ years old a nd patients) (1 - 1-dose 75+ series) 2040 [facility] Care Teams Vice President Pharmacy Relationship Specialty Start Date End Date Sabra Lim [address] [place] [address] PCP - General 09/04/20
--- OUTSIDE RECORDS SUMMARY | 2024-12-19 06:25 | XMS_ITS | Clinical Summary ---
Author Organization [facility] Address [address] [place] [address] Phone Care Team Providers Care Electrical Maintenance Supervisor Name Role Phone Aaliyah Roche MD Primary Care Provide r Allergies Active Allergy Reactions Criticality Noted Date Comments Baclofen Rash 01/12/2009 Medications AMLODIPINE-ATOR VASTATIN ORAL Take by mouth. Active CARVEDILOL ORAL Take by mouth. Active LISINOPRIL ORAL Take by mouth. Active trazodone HCl (TRAZODONE ORAL) Take by mouth. Active tirzepatide, weight loss, (Zepbound) 2.5 mg/0.5 mL injection INJECT 0.5 ML (2.5 MG TOTAL) UNDER THE SKIN EVERY 7 (SEVEN) DAYS FOR 28 DAYS. 2 mL 5 12/24/19 25 Active semaglutide (Wegovy) 0.5 mg/0.5 mL injection pen Inject 0.5 mg under the skin every 7 (seven) days. 4 mL 4 11/26/19 25 Discontinued tirzepatide, weight loss, (Zepbound) 2.5 mg/0.5 mL injection Inject 0.5 mL (2.5 mg total) under the skin every 7 (seven) days for 28 days. 2 mL 5 11/26/19 25 Discontinued Active Problems Problem Noted Date Diagnosed Date [...] 2020 split night polysomnogram. Pure hypercholesterolemia 02/05/2016 Class 2 obesity with body ma ss index (BMI) of 39.0 to 39.9 in adult 01/29/2016 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 Overview (06/11/2024): 4.2cm dilatation of the ascending thoracic aorta on cardiac MRI serial echo yearly as per cardiology Chronic pain 05/21/2014 Benign prostatic hyperplasia 10/24/2013 Multiple lipomas 07/04/2011 Degenerative arthritis of lumbar spine 1 Radiculitis, lumbosacral 10/20/2010 Hyperlipidemia 01/12/2009 Tobacco use disorder 01/05/2009 Atypical chest pain 05/02/2008 Overview (06/11/2024): Neg cardiac w/u and cta HH 04/2015 [facility] / nuclear stress done Encounters Date Type Department Care Team Description 10/15/2024 1:00 PM EST Nutrition Bariatric Surgery - [address] [address] Class 2 obesity with body mass index (BMI) of 39.0 to 39.9 in adult, unspecified obesity type, unspecified whether serious comorbidity present (Primary Dx) 10/02/2024 Telephone Bariatric Surgery [address] [address] Francesca Bermudez PA prior auth from Last 3 Months Immunizations Name Administration Dates Next Due Influenza trivalent, 0.5mL, preservative free (Fluarix; FluLaval; Fluzone) ages 6mo and older (Afluria) 3 years and older 05/21/2013 Tdap Tetanus diptheria acell ular pertussis (Boostrix; Adacel) 7yo and older 05/21/2013 Surgical History Surgery Date Site/Laterality Comments CHOLECYSTECTOMY 11/22/2013 PROCEDURE: HISTORICAL CHOLECYSTECTOMY; COMMENT: Chun; NANCY. CARPAL TUNNEL RELEASE PROCEDURE: HISTORICAL CARPAL TUNNEL REL BLADDER SURGERY PROCEDURE: HISTORICAL BLADDER SURGERY ESOPHAGOGASTRODUODENOSCOPY 09/24/15 PROCEDURE: OR ESOPHAGOGASTRODUODENOSCOPY TRANSORAL DIAGNOSTIC; COMMENT: Duodenitis, otherwise normal [...] pain 05/21/2014 DX:Chronic pain Ascending aortic aneurysm (CMS/HCC V24) DX:Ascending aortic aneurysm (HCC); COMMENT: per cardiology, [...] Comments Brother 1 Brother 2 Alive HTN, [place] at 55 y o Brother 3 mi [...] at Not on file Legal Sex Male 3:00 AM EST Gender Identity Not on file Sexual Orientation Not on file Obstetrics History Last Filed Vital Signs Vital Sign Reading Time Taken Comments Blood Pressure 128/79 07/23/2024 11:51 AM EST Pulse 71 07/23/2024 11:51 AM EST Temperature - - Respiratory Rate - - Oxygen Saturation - - Inhaled Oxygen Concentration - - Weight 126 kg (277 lb) 10/15/2024 1:04 PM EST Height 177.8 cm (5' 10 ) 07/23/2024 11:51 AM EST Body Mass Index 39.75 07/23/2024 11:51 AM EST Plan of Treatment Upcoming Encounters Date Type Department Care Team (Late st Contact Info) Description 12/19/2024 10:30 AM EDT Nutrition Bariatric Surgery - [place] [address] [facility] [address] [place] [address] [facility] [address] [place] [address] Health Maintenance Due Date Last Done Comments Diabetes: Annual Foot Exam 1975 Diabetes: Annual Retina Eye Exam 1975 Hepatitis A Vaccines (1 of 2 - Risk 2-dose series) 1984 Hepatitis B Vaccines (1 of 3 - 19+ 3-dose series) 1984 Zoster Vaccines (1 of 2) 1984 Social Influencers of Health Screening 07/31/2022 DTaP,Tdap,and Td Vaccines (2 - Td or Tdap) 05/21/2023 05/21/2013 Diabetes: Annual Urine Albumin-Creatinine Ratio (uACR) 07/23/2024 COVID-19 Vaccine (6 - Moderna risk season) 2024 06/05/2024, 09/07/2022, 09/03/2021, Additional history exists Diabetes: Blood Sugar Control Test (HGBA1C) 12/04/2024 06/05/2024, 12/30/2015 Depression Screening 06/05/2025 06/05/2024 Diabetes: Annual GFR (Glomerular Filtration Rate) 09/13/2025 09/13/2024, 04/23/2024, 03/24/2016 Hypertension/CHF/CAD Annual BMP Blood Test 09/13/2025 09/13/2024, 04/23/2024, 03/24/2016 Colorectal Cancer Screening: FIT-DNA (Cologuard) 06/08/2026 06/08/2023 Cholesterol Screening (Lipid Panel) 09/13/2029 09/13/2024, 05/11/2023, 03/24/2016 RSV Immunization Adult Patients (1 - 1-dose 75+ series) 2040 HIV Screening Completed 05/25/2013 Hepatitis C Screening Completed 05/25/2013 Pneumococcal Vaccine: 50+ Years Completed 01/23/2024, 09/20/2019, 05/01/2015 Pneumococcal Vaccine: Pediatrics (0 to 5 Years) and At-Risk Patients (6 to 64 Years) Completed 01/23/2024, 09/20/2019, 05/01/2015 Influenza Vaccine Completed 06/05/2024, , 09/07/2022, Additional [...] patient's age to complete this topic Meningococcal B Vaccine Aged Out No l onger eligible based on patient's age to complete [...] Test (03/24/2016) Annual BMP Blood Test abstracted Result [facility] Provider HEALTH MAINTENANCE Final Result * (ABNORMAL) Lipid panel (03/24/2016) Pathologist [facility] LDL/HDL Ratio 5(A) 0 - 4 Triglycerides 257(A) 0 - 150 mg/dL Cholesterol 187 0 - 200 mg/dL HDL 38(A) >=40 mg/dL LDL Cholesterol 98 0 - 100 mg/dL Blood Venous blood specimen / Unknown Result [facility] Provider LAB BLOOD ORDERABLES Delisa l Result * Hemoglobin A1c (12/30/2015) Pathologist [facility] Hemoglobin A1C 5.6 4.0 - 6.0 % Blood Venous blood specimen / Unknown Result [facility] Provider LAB BLOOD ORDERABLES Delisa l Result * HIV Screening (05/25/2013) Pathologist [facility] HIV Screening abstracted Result [facility] Provider HEALTH MAINTENANCE Final Result * Hepatitis C Screening (05/25/2013) Pathologist [facility] Hepatitis C Screening abstracted Result [facility] Provider HEALTH MAINTENANCE Final Result from Last 3 Months or Most Recently Relevant to Health Maintenance Insurance MEDICAID - [place] Care Teams Electrical Maintenance Supervisor Relationship Specialty Start Date End Date Aaliyah Roche MD [address] [address] PCP - General Internal Medicine 08/24/21
== END 2024-12-19 06:23 | disposition home or self-care (01) ==
LOC: CF 06:22
PROVIDERS: Visit Provider Internal Medicine
DX: M16.11 Unilateral primary osteoarthritis, right hip (principal)
CPT/HCPCS: 20610; J2003; J2795; J3301; Q9967

== ENCOUNTER 2024-12-19 11:46 | Outpatient (AMB) | payer MEDICAID, SELFPAY ==
--- NOTE | 2024-12-19 12:00 | MHC.OFFVIS ---
Vital Signs 12/19/24 12:01 12/19/24 12:13 BP 110/68 112/62 Blood Pressure Location Lt brachial Lt brachial Position Sitting Sitting Respiration 16 16 Pulse 57 61 Pulse Source Pulse Oximeter Pulse Oximeter Pulse Oximetry (%) 96 97 Oxygen Delivery Method Room Air Room Air Intake Visit Reasons: right hip injection w/ fluoro Machine Ii Coremaker Required: No Allergies duloxetine Allergy (Severe, Verified 12/19/24 12:01) Nightmare baclofen [BACLOFEN] Allergy (Intermediate, Verified 12/19/24 12:01) RASH Medication List - Last Reconciled 12/19/24 by Barby Leone LPN albuterol sulfate 90 mcg/actuation (Ventolin HFA) 2 puffs inhalation Q6H alfuzosin ER 10 mg PO DAILY amlodipine 10 mg PO DAILY aspirin (Adult Aspirin Regimen) 81 mg PO DAILY atorvastatin 40 mg PO BEDTIME budesonide-formoterol 160-4.5 mcg/actuation (Symbicort) inhalation carvedilol (Coreg) 25 mg PO BID lansoprazole 30 mg PO BID lisinopril 20 mg PO QAM sucralfate (Carafate) 10 mL PO QID PRN tadalafil (Cialis) 5 mg PO DAILY HPI HPI right hip injection w/ fluoro: Details: Patient presents for scheduled procedure. Denies any recent cough, cold, infection, fever or other significant changes in medical history since last office visit. [facility] Medical History Peripheral vascular disease Morbid obesity Sacroiliac joint dysfunction of right side Sacroiliitis HTN (hypertension) Descending thoracic aortic dissection Ascending aortic aneurysm Leg edema SOB (shortness of breath) Peptic ulcer disease Back pain Anxiety Hx of lipoma Constipation Esophagitis Sacroiliac joint pain Sacroiliitis Hypercholesteremia GERD (gastroesophageal reflux disease) Fatty liver VALERY (obstructive sleep apnea) Pulmonary hypertension Anemia Surgical History Status post excision of lipoma (~08/01/23) Hx of surgical procedure (06/19/23) Hx of repair of dissecting thoracic aortic aneurysm, [place] type B Hx of colonoscopy History of esophagogastroduodenoscopy (EGD) History of carpal tunnel release of both wrists History of arthroscopy of both knees Hx of cholecystectomy Family History Father Depression Suicide Mother Diabetes Dementia Heart problem Sister Dementia, Onset Age: 73 Sister No problems noted. Brother No problems noted. Family/Other No problems noted. Social History Alcohol intake: former Patient Tobacco Use Status: Current someday Tobacco user Years Smoked: 30 +/- Physical Exam Vital Signs: Last Vital Signs Pulse 61 12/19/24 12:13 Resp 16 12/19/24 12:13 BP 112/62 12/19/24 12:13 Pulse Ox 97 12/19/24 12:13 Oxygen Delivery Method Room Air 12/19/24 12:13 Office Procedures AMB Joint Injection/Aspiration Joint Injection/Aspiration Details: Hip Intra-articular Injection, fluoroscopy guided, Right After informed written consent was obtained, the patient was placed in the lateral position. Pre-procedure oxygen saturation, heart rate, and blood pressure were recorded. The skin was prepped with Chloroprep, and draped in a sterile fashion. With the use of fluroscopy the hip joint was identified. With a 25-gauge 1.5 hypodermic needle 0.75% lidocaine was injected subcutaneously over the entry site. A 22-gauge 3.5 spinal needle was then advanced toward the junction of the joint capsule and femoral neck. Once in position, and after negative aspiration, 0.5mL of Omnipaque was injected outlining the joint capsule followed by injection of 40mg Kenalog mixed with 0.5% lidocaine (3mL total). There was no evidence of paresthesias throughout needle placement. The stylet was replaced and then the needle was withdrawn. The patient tolerated the procedure well and there was no evidence of procedural complications. EBL: <1cc Coding 63130 - Large joint Procedure code (CPT) selection complete Assessment & Plan Assessment & Plan (1) Degenerative joint disease of right hip: Code(s): M16.11 - Unilateral primary osteoarthritis, right hip Category: Medical Qualifiers: Osteoarthritis type: primary Qualified Code(s): M16.11 - Unilateral primary osteoarthritis, right hip Plan Patient is status post right hip joint injection under fluoro. Patient tolerated procedure well and was discharged home in stable condition with discharge instructions. All questions were answered. We will follow-up via telephone or in clinic to assess response to therapy. A follow-up appointment was made during today's visit. Orders: Orders FL guidance in treatment room Today M16.11 - Unilateral primary osteoarthritis, right hip Coding Level of Care Code Procedure Only Diagnoses Primary osteoarthritis of right hip M16.11 Osteoarthritis type: primary CPT Codes Coding - 06589 Large joint: 34506 - Large joint ([id number])
[2024-12-19 12:01] VITALS: BP 110/68; PULSE 57; RESP 16; O2SAT 96
[2024-12-19 12:13] VITALS: BP 112/62; PULSE 61; RESP 16; O2SAT 97
--- OUTSIDE RECORDS SUMMARY | 2024-12-19 14:09 | XMS_ITS | Clinical Summary ---
Author Organization [facility] Address [address] [place] [address] Phone Care Team Providers Care Stamp Pad Finisher Name Role Phone Aaliyah Roche MD Primary [...] with body ma ss index (BMI) of 37.0 to 37.9 in adult 01/29/2016 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 Overview (06/11/2024): 4.2cm dilatation of the ascending thoracic aorta on cardiac MRI serial echo yearly as per cardiology Chronic pain 05/21/2014 Benign prostatic hyperplasia 10/24/2013 Multiple lipomas 07/04/2011 Degenerative arthritis of lumbar spine 1 Radiculitis, lumbosacral 10/20/2010 Hyperlipidemia 01/12/2009 Tobacco use disorder 01/05/2009 Atypical chest pain 05/02/2008 Overview (06/11/2024): Neg cardiac w/u and cta HH 05/05/ 04/2015 [facility] / nuclear stress done Encounters Date Type Department Care Team Description 12/19/2024 10:30 AM EDT Nutrition Bariatric Surgery [address] [phone] Class 2 obesity with body mass index (BMI) of 37.0 to 37.9 in adult, unspecified obesity type, unspecified whether serious comorbidity present (Primary Dx) 10/15/2024 1:00 PM EST Nutrition Bariatric Surgery [address] [phone] Ann[address]le George [address] Class 2 obesity with body mass index (BMI) of 39.0 to 39.9 in adult, unspecified obesity type, unspecified whether serious comorbidity present (Primary Dx) 10/02/2024 Telephone Bariatric Surgery [address] [phone] Francesca Bermudez PA prior auth from Last [...] PROCEDURE: HISTORICAL BLADDER SURGERY ESOPHAGOGASTRODUODENOSCOPY 09/24/15 PROCEDURE: MN ESOPHAGOGASTRODUODENOSCOPY TRANSORAL DIAGNOSTIC; COMMENT: Duodenitis, otherwise normal [...] - Inhaled Oxygen Concentration - - Weight 117 kg (259 lb) 12/19/2024 10:20 AM EDT Height 177.8 cm (5' 10 ) 07/23/2024 11:51 AM EST Body Mass Index 37.16 07/23/2024 11:51 AM EST Plan of Treatment Upcoming Encounters Date Type Department Care Team (Late st Contact Info) Description 02/21/2025 10:00 AM EDT Nutrition Bariatric Surgery - [address] [phone] Katty Stewart, RD [address] [phone] 03/13/2025 2:15 PM EDT Office Visit Bariatric Surgery [address] [phone] Francesca Bermudez PA [address] [phone] Health Maintenance Due Date Last Done Comments [...] exists Diabetes: Blood Sugar Control Test (HGBA1C) 05/16/2025 11/13/2024, 06/05/2024, 12/30/2015 Depression Screening 06/05/2025 06/05/2024 Diabetes: [...] * Annual BMP Blood Test (03/24/2016) Pathologist [facility] Annual BMP Blood Test abstracted Result [facility] Provider HEALTH MAINTENANCE Final Result * (ABNORMAL) Lipid panel (03/24/2016) Pathologist [facility] [place] LDL/HDL Ratio 5(A) 0 - 4 Triglycerides 257(A) 0 - 150 mg/dL Cholesterol 187 0 - 200 mg/dL HDL 38(A) >=40 mg/dL LDL Cholesterol 98 0 - 100 mg/dL Blood Venous blood specimen / Unknown Result [facility] Provider LAB BLOOD ORDERABLES Delisa l Result * Hemoglobin A1c (12/30/2015) [facility] Hemoglobin A1C 5.6 4.0 - 6.0 % Blood Venous blood specimen / Unknown Result [facility] Provider LAB BLOOD ORDERABLES Delisa l Result * HIV Screening (05/25/2013) Pathologist [facility] [place] HIV Screening abstracted Result [facility] Provider HEALTH MAINTENANCE Final Result * Hepatitis C Screening (05/25/2013) Pathologist [facility] Hepatitis C Screening abstracted [facility] Provider HEALTH MAINTENANCE Final Result from Last 3 Months or Most Recently Relevant to Health Maintenance Insurance MEDICAID - [place] Care Teams Stamp Pad Finisher Relationship Specialty Start Date End Date Aaliyah Roche MD [address] [place] [phone] PCP - General Internal Medicine 08/24/21
--- OUTSIDE RECORDS SUMMARY | 2024-12-19 14:09 | XMS_ITS | Encounter Summary ---
Author Organization [employer] Address [address] [place] [address] Care Team Providers Care Lodging Facilities Attendant Name Role Phone Aaliyah Roche MD Primary Care Provide r Reason for Visit * Reason Comments Med Refill Encounter Details Date Type Department Care Team ([facility] st Contact Info) Description 12/18/2024 Refill [facility] [address] [place], [place] [phone] Aaliyah Roche MD [address] [place], [place] [phone] Essential hypertension Social History Tobacco Use Types Packs/Day Years Used Date Smoking Tobacco: Former Cigarettes Passive Smoke Exposure: Past Smokeless Tobacco: Never Alcohol Use Standard Drinks/Week Comments Not Currently 0 (1 standard drink = 0.6 oz pur e alcohol) Depression Answer Date Recorded Patient Health Questionnaire-9 Score 12 06/05/2024 Patient Health Questionnaire-9 Score 12 06/05/2024 Last PHQ-9: Questionnaire Data Not on file 1 Housing Stability Answer Date Recorded What is your housing situation today? I have raoul huber 11/13/[address] you li ve. Do you have problems with any of the following? None of the above 11/13/2024 Food Insecurity Answer Date Recorded Within the past 12 months, y ou worried that your food would run out before you got money to buy more: Never True 11/13/2024 Within the past 12 months,th e food you bought just didn't last and you didn't have enough money to get more: Never True Transportation Answer Date Recorded In the past 12 months, has l ack of transportation kept you from medical appts, meetings, work or from getting things needed for daily living? No 11/13/2024 Utilities Answer Date Recorded In the past 12 months, has t he electric, gas, oil or water company threatened to shut off services in your home? No 11/13/2024 Depression Answer Date Recorded Patient Health Questionnaire-2 Score 6 06/05/2024 Internet Access Answer Date Recorded Internet Access Q1 No 11/13/2024 Internet Access Q2 I do not want or need it 10/26 Sex and Gender Information Value Date Recorded Sex Assigned at Male 06/27/2022 10:20 AM EDT Legal Sex Male 10:20 AM EDT Gender Identity Male 06/27/2022 10:20 AM EDT Sexual Orientation Straight 06/27/2022 10 :20 AM EDT documented as of this encounter Plan of Treatment Not on file documented as of this encounter Visit Diagnoses Diagnosis Essential hypertension Unspecified essential hypertension documented in this encounter Additional Health Concerns Assessment Noted Time PHQ-9 Depression Total Score: 12 024 11:05 AM EDT documented as of this encounter Care Teams Lodging Facilities Attendant Relationship Specialty Start Date End Date Aaliyah Roche MD [address] [place] [address] PCP - General Family Medicine 07/03/19 documented as of this encounter
--- OUTSIDE RECORDS SUMMARY | 2024-12-19 14:09 | XMS_ITS | Encounter Summary ---
Author Organization [email or web address] Address [address] [place] [address] Care Team Providers Care Steam Crane Operator Name Role Phone Aaliyah Roche MD Primary Care Provide r Reason for Visit * Reason Comments Nasal Congestion Encounter Details Date Type Department Care Team ([facility] Contact Info) Description 12/17/2024 9:20 AM EDT Office Visit [facility] [address] [place], [place] [phone] Yung Dao MD [address] [place], [place] [phone] COPD exacerbation (CMS/HCC) (Primary Dx); Nasal congestion Social History Tobacco Use Types Packs/Day Years [...] AM EDT documented as of this encounter Last Filed Vital Signs Vital Sign Reading Time Taken Comments Blood Pressure 116/71 12/17/2024 9:28 AM EDT Pulse 67 12/17/2024 9:28 AM EDT Temperature 36.3 ??C (97.4 ??F) 12/17/2024 9:28 AM ED T Respiratory Rate 18 12/17/2024 9:28 AM EDT Oxygen Saturation 98% 12/17/2024 9:28 AM EDT Inhaled Oxygen Concentration - - Weight 118 kg (260 lb 12.8 oz) 12/17/2024 9:28 A M EDT Height - - Body Mass Index 37.42 11/29/2024 12:50 PM EDT documented in this encounter Progress Notes * Yung Dao MD - 12/17/2024 9:20 AM EDT Subjective Patient ID: Silvestre Villalobos is a 59 y.o. male. HPI Silvestre has 1.5 week h/o productive cough, wheezing, SOB. 3 days ago had tactile fever. Denies chest pain, n/v/d. Using albuterol HFA 2x/day, Symbicort bid. States h/o COPD followed by Pulmonology (no office notes found in [facility]). Lives with who is not ill. Not employed. Former smoker. Patient Active Problem List Diagnosis Gastroesophageal reflux disease Erosive gastritis Esophagitis Lumbar spondylosis HTN (hypertension) Dissection of aorta (CMS/HCC) Impaired fasting glucose Obstructive sleep apnea Lightheadedness Class 3 severe obesity with serious comorbidity and body mass index (BMI) of 40.0 to 44.9 in adult Prediabetes Changing skin lesion Blurring of visual image Chronic thoracic back pain Other chronic postprocedural pain Knee pain Lumbar back pain Lumbar radiculopathy Sprain of foot Subluxation of joint Thoracic aortic aneurysm without rupture (CMS/HCC) Ascending aortic aneurysm (CMS/HCC) Tinea pedis Ulcer of foot (CMS/HCC) Obesity (BMI 30-39.9) Essential hypertension Benign prostatic hyperplasia Chest discomfort Diabetes mellitus (CMS/HCC) Dysphagia Elevated blood pressure Erectile dysfunction Giardia Pure hypercholesterolemia Multiple lipomas PUD (peptic ulcer disease) Radiculitis, lumbosacral Right bundle branch block RUQ pain Sacroiliitis (CMS/HCC) Shortness of breath Therapeutic opioid-induced constipation (OIC) Tobacco use disorder Varicose veins of right lower extremity with inflammation Abdominal wall pain in right upper quadrant Atypical chest pain Chronic pain 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 Morbid obesity (CMS/HCC) Obesity Aortic dissection distal to left subclavian (CMS/HCC) Descending thoracic aortic dissection (CMS/HCC) Abnormality of thoracic aorta Peripheral vascular disease (CMS/HCC) Lumbar back pain with radiculopathy affecting right lower extremity Degenerative arthritis of lumbar spine Class 3 severe obesity due to excess calories with serious comorbidity and body mass index (BMI) of40.0 to 44.9 in adult Encounter for preventative adult health care examination BPH associated with nocturia Colon cancer screening 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 Respiratory: Positive for cough, shortness of breath and wheezing. Cardiovascular: Negative for chest pain. Gastrointestinal: Negative for abdominal pain. Skin: Negative for rash. Neurological: Negative for headaches. Objective Physical Exam Constitutional: Appearance: Normal appearance. HENT: Right Ear: Tympanic membrane, ear canal and external ear normal. Left Ear: Tympanic membrane, ear canal and external ear normal. Nose: Nose normal. Mouth/Throat: Mouth: Mucous membranes are moist. Pharynx: Oropharynx is clear. Eyes: Pupils: Pupils are equal, round, and reactive to light. Comments: Bilateral pterygium Cardiovascular: Rate and Rhythm: Normal rate and regular rhythm. Heart sounds: No murmur heard. Pulmonary: Effort: Pulmonary effort is normal. Breath sounds: Wheezing (mild diffuse bilat expiratory) present. Musculoskeletal: General: Normal range of motion. Cervical back: No tenderness. Skin: Findings: No rash. Neurological: Mental Status: He is alert. Gait: Gait is intact. Psychiatric: Mood and Affect: Mood normal. Behavior: Behavior normal. Procedures Assessment/Plan Diagnoses and all orders for this visit: COPD exacerbation ([facility]) Negative rapid Covid and Influenza tests. Prescribed prednisone, doxycycline, albuterol solution. The patient was prescribed a nebulizer from the DME vendor [employer]. Instructions on how to use the nebulizer were provided. Return to clinic if not improving. - POCT Rapid Covid-19 BinaxNOW - POCT Rapid Influenza A JEAN ID NOW - POCT Rapid Influenza B JEAN ID NOW Other orders - doxycycline (Vibramycin) 100 MG capsule; Take 1 capsule (100 mg) by mouth 2 times daily for 5 days. Take with at least 8 ounces (large glass) of water, do not lie down for 30 minutes after - predniSONE (Deltasone) 20 MG tablet; Take 2 tablets (40 mg) by mouth Once per day for 5 days. - albuterol (2.5 MG/3ML) 0.083% nebulizer solution; Take 3 mL (2.5 mg) by nebulization every 6 (six) hours if needed for wheezing or shortness of breath. documented in this encounter Plan of Treatment Not on file documented as of this encounter Procedures Procedure Name Priority Date/Time Associated Diagnosis Comments POCT INFLUENZA B (ID NOW RAPID MOLECULAR) Routine 12/17/2024 9:40 AM EDT Nasal congestion POCT INFLUENZA A (ID NOW RAPID MOLECULAR) Routine 12/17/2024 9:40 AM EDT Nasal congestion POCT RAPID COVID ANTIGEN Routine 12/17/2024 9:37 AM EDT Nasal congestion documented in this encounter Results * POCT Rapid Influenza B JEAN ID NOW (12/17/2024 9:40 AM EDT) Influenza B Negative Negative, Indeterminate [facility] QC Media Lot # [id number] [facility] Lot# Expiration Date [facility] Swab 12/17/2024 9:40 AM EDT us Yung Dao MD POINT OF CARE TEST ENTER/EDIT OR DERABLES Final Result Performing Organization Address [facility] Co de Phone Number [facility] [address] [place] [phone] * POCT Rapid Influenza A JEAN ID NOW (12/17/2024 9:40 AM EDT) Influenza A Negative Negative, Indeterminate [facility] QC Media Lot # [id number] [facility] Lot# Expiration Date [facility] Swab 12/17/2024 9:40 AM EDT us Yung Dao MD POINT OF CARE TEST ENTER/EDIT OR DERABLES Final Result Performing Organization Address [facility] Co de Phone Number [facility] [address] [place] [phone] * POCT Rapid Covid-19 BinaxNOW (12/17/2024 9:37 AM EDT) Rapid COVID Ag Negative QC Media Lot # [id number] Lot# Expiration Date Swab 12/17/2024 9:37 AM EDT us Yung Dao MD POINT OF CARE TEST ENTER/EDIT OR DERABLES Final Result documented in this encounter Visit Diagnoses Diagnosis COPD exacerbation ([facility])- Primary Obstructive chronic bronchitis with exacerbation Nasal congestion Other diseases of nasal cavity and sinuses documented in this encounter Additional Health Concerns Assessment Noted Time PHQ-9 Depression Total Score: 12 024 11:05 AM EDT documented as of this encounter Care Teams Steam Crane Operator Relationship Specialty Start Date End Date Aaliyah Roche MD [address] [place] [phone] PCP - General Family Medicine 07/03/19 documented as of this encounter
--- OUTSIDE RECORDS SUMMARY | 2024-12-19 14:09 | XMS_ITS | Clinical Summary ---
Author Organization [employer] Address [address] [place] [address] Care Team Providers Care Art Librarian Name Role Phone Aaliyah Roche MD Primary Care Provide r Allergies Active Allergy Reactions Criticality Noted Date Comments Baclofen Rash High 01/12/2009 Other reaction(s): full body rash Cyclobenzaprine Rash Low 05/14/2021 Duloxetine High 02/10/2023 Other reaction(s): Nightmare Medications glucose blood test stripIndication s:Impaired fasting glucose Use daily to check finger stick BS 100 each 12 01/04/20 23 Active Symbicort 160-4.5 MCG/ACT inhaler INHALE 2 PUFF TWICE A DAY *RINSE MOUTH AND THROAT AFTER USE* 05/24/20 23 Active metFORMIN XR (Glucophage-XR) 500 MG 24 hr tabletIndicatio ns:Prediabetes TAKE 1 TABLET BY MOUTH WITH EVENING MEAL 90 tablet 1 04/16/20 24 Active Additional Information Patient not taking.Reported on 07/22/2024 prazosin (Minipress) 1 MG capsule TAKE 1 CAPSULE BY MOUTH EVERYDAY AT BEDTIME 90 capsule 1 04/16/20 24 Active Diclofenac Sodium 1 % gelIndications: Arthralgia, unspecified joint APPLY 2 GRAMS TO THE AFFECTED AREA 3 TIMES A DAY NEEDED 100 g 2 04/16/20 24 Active carvedilol (Coreg) 25 MG tablet TAKE 2 TABLETS BY MOUTH TWICE A DAY WITH FOOD 360 tablet 1 07/02/20 24 Active Additional Information Patient taking differently: 1 tablet Oral 2 times daily with meals, TAKE 2 TABLETS BY MOUTH TWICE A DAY WITH FOOD, Reported on 07/22/2024 lisinopril 20 MG tabletIndicatio ns:Essential hypertension TAKE 1 TABLET BY MOUTH EVERY DAY IN THE MORNING 90 tablet 1 07/02/20 Active Ventolin HFA 108 (90 Base) MCG/ACT inhaler Inhale 2 puffs every 6 (six) hours. Active Azelastine HCl 137 MCG/SPRAY solution SPRAY 2 SPRAYS INTO EACH NOSTRIL TWICE A DAY FOR 30 DAYS 07/02/20 Active fluticasone (Flonase) 50 MCG/ACT nasal spray Administer 1 spray into each nostril Once per day. 04/16/20 Active ipratropium (Atrovent) 0.03 % nasal spray Administer 2 sprays into each nostril 3 times daily. 12/07/19 Active pravastatin (Pravachol) 20 MG tabletIndicatio ns:Essential hypertension Take 1 tablet (20 mg) by mouth Once per day. 30 tablet 11/14/19 25 2025 Active amLODIPine (Norvasc) 10 MG tablet TAKE 1 TABLET BY MOUTH EVERY DAY IN THE MORNING 90 tablet 1 12/12/19 Active doxycycline (Vibramycin) 100 MG capsule Take 1 capsule (100 mg) by mouth 2 times daily for 5 days. Take with at least 8 ounces (large glass) of water, do not lie down for 30 minutes after 10 capsule 12/18/19 25 2024 Active predniSONE (Deltasone) 20 MG tablet Take 2 tablets (40 mg) by mouth Once per day for 5 days. 10 tablet 12/18/19 25 2024 Active albuterol (2.5 MG/3ML) 0.083% nebulizer solution Take 3 mL (2.5 mg) by nebulization every 6 (six) hours if needed for wheezing or shortness of breath. 75 mL 1 12/18/19 25 2025 Active Nebulizer misc 1 Units Every 4-6 hours as needed (Q6 hr PRN per albuterol order). Pt provided [employer] Nebulizer machine. Education provided. Pt verbalized understanding. Active amLODIPine (Norvasc) 10 MG tablet TAKE 1 TABLET BY MOUTH EVERY DAY IN THE MORNING 90 tablet 1 07/02/20 24 2024 Discontinued Active Problems Problem Noted Date Diagnosed Date History of melanoma 11/13/2024 Chronic right-sided thoracic back pain Epigastric pain 07/31/2024 Other chest pain 07/31/2024 Assessment & Plan (08/02/2024 4:18 PM EST): Resolved now H/O malignant neoplasm of skin 06/05/2024 Uncomplicated opioid dependence 06/05/2024 Right inguinal pain 10/23/2023 Right testicular pain 10/23/2023 Acute midline thoracic back pain 10/23/2023 Right lower quadrant pain 08/10/2023 Assessment & Plan (08/10/2023 9:40 AM EST): I advise not to miss his appointment with urology I will prescribe acetaminophen 3 for 1 week if pain persist or worse he was instructed to go to ED UTI symptoms 08/10/2023 Assessment & Plan (08/10/2023 9:42 AM EST): In spite of previous negative UA for UTI I decided to treat him empirically with macrobid Encounter for preventative adult health care exa mination 05/30/2023 Assessment & Plan (05/30/2023 4:17 PM EDT): See HPI BPH associated with nocturia 05/30/2023 Colon cancer screening 05/30/2023 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 05/30/2023 Lipoma 05/30/2023 Chest discomfort 05/08/2023 Diabetes mellitus 05/08/2023 Assessment & Plan (11/13/2024 2:06 PM EDT): Diabetes is: controlled - Lab Results Component Value Date HGBA1C 6.0 06/05/2024 HGBA1C 6.0 08/10/2023 HGBA1C 5.8 05/11/2023 - Lab Results Component Value Date MICROALBUR 16.0 05/11/2023 CREATININE 0.75 09/13/2024 -Changes: None - Diabetic eye exam: Up-to-date - Diabetic foot exam: Referral done today - Continue lifestyle modifications - Continue current medications - Follow up: 3 months Assessment & Plan (06/05/2024 2:17 PM EDT): Diabetes is: controlled - Lab Results Component Value Date HGBA1C 6.0 06/05/2024 HGBA1C 6.0 08/10/2023 HGBA1C 5.8 05/11/2023 - Lab Results Component Value Date MICROALBUR 16.0 05/11/2023 CREATININE 0.74 04/23/2024 -Changes: none - Diabetic eye exam:up to date - Diabetic foot exam:pending - Continue lifestyle modifications - Continue current medications - Follow up: 3 months Assessment & Plan (01/23/2024 4:38 PM EDT): Diabetes is: controlled - Lab Results Component Value Date HGBA1C 6.0 08/10/2023 HGBA1C 5.8 05/11/2023 HGBA1C 6.2 (A) 01/03/2023 - Lab Results Component Value Date MICROALBUR 16.0 05/11/2023 CREATININE 0.71 06/12/2023 -Changes: none - Diabetic eye exam:up to date - Diabetic foot exam:up to date - Continue lifestyle modifications - Continue current medications - Follow up: 3 months Assessment & Plan (05/30/2023 4:16 PM EDT): - Lab Results Component Value Date HGBA1C 5.8 05/11/2023 HGBA1C 6.2 (A) 01/03/2023 HGBA1C 6.4 10/24/2022 - Lab Results Component Value Date MICROALBUR 16.0 05/11/2023 CREATININE 0.81 05/11/2023 - Diabetic eye exam:up to date - Diabetic foot exam:referral today - Continue lifestyle modifications - Continue current medications Assessment & Plan (05/08/2023 12:46 PM EDT): - Lab Results Component Value Date HGBA1C 6.2 (A) 01/03/2023 HGBA1C 6.4 10/24/2022 HGBA1C 5.8 (H) 12/17/2020 - Lab Results Component Value Date CREATININE 0.76 05/04/2022 - Diabetic eye exam: referral today - Continue lifestyle modifications - Continue current medications - Dysphagia 05/08/2023 Erectile dysfunction 05/08/2023 Giardia 05/08/2023 PUD (peptic ulcer disease) 05/08/2023 Right bundle branch block 05/08/2023 RUQ pain 05/08/2023 Sacroiliitis 05/08/2023 Shortness of breath 05/08/2023 Therapeutic opioid-induced constipation (OIC) Varicose veins of right lower extremity with inf lammation 05/08/2023 Abdominal wall pain in right upper quadrant 04/28 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 05/08/2023 Intercostal neuralgia 05/08/2023 Morbid obesity 05/08/2023 Descending thoracic aortic dissection 05/08/2023 Peripheral vascular disease 05/08/2023 Lumbar back pain with radicu lopathy affecting right lower extremity 05/08/2023 Assessment & Plan (01/23/2024 4:39 PM EDT): I let patient know pregabalin PA was approved, he does not know if he took medication or not he will check and get back to me He will also follow with pain management Class 3 severe obesity due t o excess calories with serious comorbidity and body mass index (BMI) of 40.0 to 44.9 in adult 05/08/2023 Assessment & Plan (06/05/2024 2:16 PM EDT): [facility] Assessment & Plan (05/08/2023 12:47 PM EDT): Counseling and discussion done today I will refer patient to bariatric specialist Changing skin lesion 05/04/2023 Blurring of visual image 05/04/2023 Chronic thoracic back pain 05/04/2023 Assessment & Plan (11/20/2023 11:54 AM EDT): As above Other chronic postprocedural pain 05/04/2023 Knee pain 05/04/2023 Lumbar back pain 05/04/2023 Lumbar radiculopathy 05/04/2023 Assessment & Plan (11/20/2023 11:54 AM EDT): I will discontinue gabapentin and start him on pregabalin I will refer him to pain management Assessment & Plan (10/23/2023 1:13 PM EST): Last MRI done a long time ago I will repeat another one I will try gabapentine 300mg Q 8hrs and acetaminophen RTC 4 weeks Sprain of foot 05/04/2023 Subluxation of joint 05/04/2023 Thoracic aortic aneurysm without rupture 023 Ascending aortic aneurysm 05/04/2023 Tinea pedis 05/04/2023 Ulcer of foot 05/04/2023 Obesity (BMI 30-39.9) 05/04/2023 Essential hypertension 05/04/2023 Assessment & Plan (11/13/2024 2:05 PM EDT): Blood pressure seems to be under control I advised low-sodium diet and to continue with weight loss Continue with same medication regimen without missing any dose Assessment & Plan (06/05/2024 2:16 PM EDT): Maintenance: BMP: up to date Lipid Panel: up to date ASCVD Risk: 18% on atorvastatin 40mg daily - Aerobic exercise to reduce BP. Initial goal of 30 min walk 3-5x/week. Increase as tolerated. - low-sodium diet (goal: <2g/day) and heart healthy diet such as DASH to reduce BP and prevent ASCVD. - Home BP monitoring 1-2 x day with goal of <140/90. - Seek immediate medical attention for chest pain, palpitations, SOB, syncope, or sudden changes in mental status. - Do not change or discontinue current prescriptions without first consulting health care provider Assessment & Plan (01/23/2024 4:37 PM EDT): - Aerobic exercise to reduce BP. Initial goal of 30 min walk 3-5x/week. Increase as tolerated. - low-sodium diet (goal: <2g/day) and heart healthy diet such as DASH to reduce BP and prevent ASCVD. - Home BP monitoring 1-2 x day with goal of <140/90. - Seek immediate medical attention for chest pain, palpitations, SOB, syncope, or sudden changes in mental status. - Do not change or discontinue current prescriptions without first consulting health care provider Assessment & Plan (10/23/2023 1:12 PM EST): Patient did not took his medication for blood pressure today, I advise to take them daily and do not skip doses I advise low Na diet and weight reduction Assessment & Plan (08/10/2023 9:41 AM EST): Maintenance: BMP: up to date Lipid Panel: up to date ASCVD Risk:on atorvastatin 40mg -lisinopril was send to pharmacy - Aerobic exercise to reduce BP. Initial goal of 30 min walk 3-5x/week. Increase as tolerated. - low-sodium diet (goal: <2g/day) and heart healthy diet such as DASH to reduce BP and prevent ASCVD. - Home BP monitoring 1-2 x day with goal of <140/90. - Seek immediate medical attention for chest pain, palpitations, SOB, syncope, or sudden changes in mental status. - Do not change or discontinue current prescriptions without first consulting health care provider Aortic dissection distal to left subclavian 08/2022 Class 3 severe obesity with serious comorbidity and body mass index (BMI) of 40.0 to 44.9 in adult 01/31/2023 Prediabetes 01/31/2023 Assessment & Plan (08/10/2023 9:42 AM EST): Today extensive discussion was done about life style modifications I advise healthy diet (low calorie) and cardiovascular exercise C/w metformin Assessment & Plan (01/31/2023 3:11 PM EDT): Today extensive discussion was done about life style modifications I advise healthy diet (low calorie) and cardiovascular exercise HTN (hypertension) 01/03/2023 Assessment & Plan (08/02/2024 4:17 PM EST): I advised: - Aerobic exercise to reduce BP. Initial goal of 30 min walk 3-5x/week. Increase as tolerated. - low-sodium diet (goal: <2g/day) and heart healthy diet such as DASH to reduce BP and prevent ASCVD. - Home BP monitoring 1-2 x day with goal of <140/90. - Seek immediate medical attention for chest pain, palpitations, SOB, syncope, or sudden changes in mental status. - Do not change or discontinue current prescriptions without first consulting health care provider Assessment & Plan (05/30/2023 4:14 PM EDT): -Patient run out of his medication lisinopril 2 weeks ago - Aerobic exercise to reduce BP. Initial goal of 30 min walk 3-5x/week. Increase as tolerated. - low-sodium diet (goal: <2g/day) and heart healthy diet such as DASH to reduce BP and prevent ASCVD. - Home BP monitoring 1-2 x day with goal of <140/90. - Seek immediate medical attention for chest pain, palpitations, SOB, syncope, or sudden changes in mental status. - Do not change or discontinue current prescriptions without first consulting health care provider. Assessment & Plan (05/08/2023 12:45 PM EDT): - Aerobic exercise to reduce BP. Initial goal of 30 min walk 3-5x/week. Increase as tolerated. - low-sodium diet (goal: <2g/day) and heart healthy diet such as DASH to reduce BP and prevent ASCVD. - Home BP monitoring 1-2 x day with goal of <140/90. - Seek immediate medical attention for chest pain, palpitations, SOB, syncope, or sudden changes in mental status. - Do not change or discontinue current prescriptions without first consulting health care provider Assessment & Plan (01/31/2023 3:11 PM EDT): - Aerobic exercise to reduce BP. Initial goal of 30 min walk 3-5x/week. Increase as tolerated. - low-sodium diet (goal: <2g/day) and heart healthy diet such as DASH to reduce BP and prevent ASCVD. - Home BP monitoring 1-2 x day with goal of <140/90. - Seek immediate medical attention for chest pain, palpitations, SOB, syncope, or sudden changes in mental status. - Do not change or discontinue current prescriptions without first consulting health care provider Dissection of aorta 01/03/2023 Impaired fasting glucose 01/03/2023 Assessment & Plan (01/03/2023 5:10 PM EDT): Counseled re more frequent low calorie/carb meals. Check fgstk daily, glucometer sent to [facility] pharmacy Encouraged physical activity as tolerated. FU in 2 months w PCP, referred to [facility]. Lightheadedness 01/03/2023 Assessment & Plan (01/03/2023 5:12 PM EDT): Most likely related to IFG, fluctuating RBS levels. Diet as above. Check BP 1h after taking meds and fu w PCP. Lumbar spondylosis 11/07/2022 Overview (11/07/2022): Followed by pain specialist receiving lumbar injections. Gastroesophageal reflux disease 09/05/2022 Erosive gastritis 09/05/2022 Esophagitis 09/05/2022 Obstructive sleep apnea 11/09/2020 Overview (01/03/2023): [facility] Polysomnogram Date 08/12/2019. Wt 273#; BMI 39. AHI 46; Obstructive apneas 40; Mixed apneas 0; Central apneas 1; Hypopneas 168; average oxygen saturation 92% (lowest 86%). - Obstructive Sleep Apnea - Severe; mostly Hypopneas and obstructive apneas; without sleep related hypoventilation by 2020 split night polysomnogram. Pure hypercholesterolemia 02/05/2016 Elevated blood pressure 01/29/2016 Obesity 01/29/2016 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 Overview (05/08/2023): 4.2cm dilatation of the ascending thoracic aorta on cardiac MRI serial echo yearly as per cardiology Chronic pain 05/21/2014 Benign prostatic hyperplasia 10/24/2013 Multiple lipomas 07/04/2011 Degenerative arthritis of lumbar spine 1 Radiculitis, lumbosacral 10/20/2010 Tobacco use disorder 01/05/2009 Atypical chest pain 05/02/2008 Overview (05/08/2023): Neg cardiac w/u and cta HH 04/2015 [facility] / nuclear stress done Encounters Date Type Department Care Team Description 12/18/2024 Refill [facility] [address] [place] [address] Aaliyah Roche MD Essential hypertension 12/17/2024 9:20 AM EDT Office Visit [facility] [address] [place] [phone] Yung Dao MD COPD exacerbation (CMS/HCC) (Primary Dx); Nasal congestion 12/17/2024 Travel 12/10/2024 Refill [facility] [address] [place] [address] Aaliyah Roche MD 11/29/2024 1:00 PM EDT Office Visit [address] [id number] Jaswant Duarnt MD 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); History of melanoma 11/13/2024 Travel 11/08/2024 Population Health Risk Score [facility] () Department [address] [place] [id number] Provider, Population Health Generic 11/05/2024 Patient Outreach [facility] [address] [place] [phone] Aaliyah Roche MD Pre-visit Planning ((Unable to reach for PVP screening, LVM)) 10/21/2024 Refill [facility] [address] [place] [address] [phone] Aaliyah Roche MD Dyslipidemia from Last 3 Months Immunizations Name Administration Dates Next Due Influenza injectable quadriv alent preservative free 05/30/2023,09/07/2022,07/20/2021,05/06,06/24/2019 Influenza, IIV3, injectable 05/21/2013 Influenza, Injectable, MDCK, preservative free 05/28/2015 Influenza, injectable, quadr ivalent, preservative free, pediatric 05/21/2013 Influenza, seasonal, injecta ble, preservative free 06/05/2024 Moderna Covid-19 Vaccine 6+ Bivalent 09/07/2022 Pfizer Covid-19 Vaccine 12+ 06/05/2024 Pneumococcal Conjugate PCV 20 01/23/2024 Pneumococcal Polysaccharide PPSV23 09/20/2019, Tdap 05/21/2013 Social History Tobacco Use Types Packs/Day Years Used Date Smoking Tobacco: Former Cigarettes Passive Smoke Exposure: Past Smokeless Tobacco: Never Tobacco Cessation:Counseling Given: Not Answered Alcohol Use Standard Drinks/Week Comments Not Currently [...] Orientation Straight 06/27/2022 10 :20 AM EDT Last Filed Vital Signs Vital Sign Reading [...] oz) 12/17/2024 9:28 A M EDT Height 177.8 cm (5' 10 ) 11/29/2024 12:50 PM EDT Body Mass Index 37.42 11/29/2024 12:50 PM EDT Plan of Treatment Health Maintenance Due Date Last Done Comments CT Colonography 1965 Colonoscopy 1965 FIT 1965 FOBT 1965 HIV Screening 1965 Sigmoidoscopy 1965 Derm Melanoma Skin Check 1965 Diabetes: Foot Exam 1975 Hepatitis C Screening 1983 Hepatitis B Vaccines (1 of 3 - 19+ 3-dose series) 1984 Zoster Vaccines (1 of 2) 2015 DTaP/Tdap/Td Vaccines (2 - Td or Tdap) 05/21/2023 05/21/2013 Diabetes: Urine Protein Screening 04/23/2025 04/23/2024, 02/01/2024, 05/11/2023 Diabetes: Hemoglobin A1C 05/16/2025 025, 06/05/2024, 08/10/2023, Additional history exists Depression Screening 06/05/2025 06/05/2024, 06/05/20 Alcohol/Substance Use Screening 07/31/2025 07/31/2024 Lipid Panel 09/13/2025 09/13/2024, 04/28, 03/10/2022, Additional history exists SDOH Screening 11/13/2025 11/13/2024 Tobacco Screening 12/17/2025 12/17/2024 Eye Exam 12/19/2025 12/20/2023, 11/27, 12/20/2023, Additional history exists Colorectal Cancer Screening 06/08/2026 FIT DNA/Cologuard 06/08/2026 06/08/2023 RSV Patients and Patients Aged 60 years or older (1 - 1-dose 75+ series) 2040 Pneumococcal Vaccine: 50+ Years Completed 01/23/2024, 09/20/2019, 05/01/2015 COVID-19 Vaccine Completed 06/05/2024, 06/2023, 09/03/2021, Additional history exists Influenza Vaccine Completed 06/05/2024, , 09/07/2022, Additional [...] patient's age to complete this topic Meningococcal Vaccine Aged Out No genny phil eligible based on patient's age to complete this topic RSV under 20 months Aged Out No longe r eligible based on patient's age to complete this topic Rotavirus Vaccines Aged Out No longer eligible based on patient's age to complete this topic Procedures Procedure Name Priority Date/Time Associated Diagnosis Comments POCT INFLUENZA B (ID NOW RAPID MOLECULAR) Routine 12/17/2024 9:40 AM EDT Nasal congestion POCT INFLUENZA A (ID NOW RAPID MOLECULAR) Routine 12/17/2024 9:40 AM EDT Nasal congestion POCT RAPID COVID ANTIGEN Routine 12/17/2024 9:37 AM EDT Nasal congestion POCT GLYCATED HEMOGLOBIN, TOTAL Routine 11/13/2024 2:22 PM EDT Type 2 diabetes mellitus with hyperglycemia, without long-term current use of insulin ([facility]) POCT GLUCOSE Routine 11/13/2024 10:36 AM EDT Type 2 diabetes mellitus with hyperglycemia, without long-term current use of insulin ([facility]) LIPID PANEL, STANDARD Routine 09/13/2024 10:16 AM EST Class 3 severe obesity due to excess calories with serious comorbidity and body mass index (BMI) of 40.0 to 44.9 in adult ([facility]) CREATININE, RANDOM URINE Routine 04/23/2024 8:19 AM EDT LAB COLOGUARD?? COLON CANCER SCREEN Routine 06/08/2023 8:20 AM EDT Colon cancer screening from Last 3 Months or Most Recently Relevant to Health Maintenance Results * POCT Rapid Influenza B JEAN ID NOW (12/17/2024 9:40 AM EDT) Influenza B Negative Negative, Indeterminate [facility] QC Media Lot # [id number] [facility] Lot# Expiration Date [facility] Swab 12/17/2024 9:40 AM EDT us Yung Dao MD POINT OF CARE TEST ENTER/EDIT OR DERABLES Final Result Performing Organization Address [facility]/ZIP Co de Phone Number [facility] [address] [place] [phone] * POCT Rapid Influenza A JEAN ID NOW (12/17/2024 9:40 AM EDT) Influenza A Negative Negative, Indeterminate [facility] QC Media Lot # [id number] [facility] Lot# Expiration Date [facility] Swab 12/17/2024 9:40 AM EDT us Yung Dao MD POINT OF CARE TEST ENTER/EDIT OR DERABLES Final Result [facility] [address] [place] [address] [phone] * POCT Rapid Covid-19 BinaxNOW (12/17/2024 9:37 AM EDT) Rapid COVID Ag Negative QC Media Lot # [id number] Lot# Expiration Date Swab 12/17/2024 9:37 AM EDT Yung Dao MD POINT OF CARE TEST ENTER/EDIT OR DERABLES Final Result * POCT HGB A1C (11/13/2024 2:22 PM EDT) Pathologist [facility] Hemoglobin A1C 5.6 4.0 - 6.0 % QC Media Lot # [id number] Lot# Expiration Date Blood 11/13/2024 2:22 PM EDT Aaliyah Hernandez MD POINT OF CARE TEST EN TER/EDIT ORDERABLES Final Result * POCT Glucose (11/13/2024 10:36 AM EDT) Pathologist [facility] Glucose Blood, POC 104 60 - 200 mg/dL Comment:random QC Media Lot # [id number] Lot# Expiration Date Blood Capillary blood specimen / Unknown 11/13/2024 10:36 AM EDT Aaliyah Hernandez MD POINT OF CARE TEST EN TER/EDIT ORDERABLES Final Result * (ABNORMAL) Lipid Panel, Standard (09/13/2024 10:16 AM EST) Pathologist [facility] Triglycerides 209(H) <150 mg/dL [facility] Comment:Desirable Triglyceri de: less than 150 mg/dLBorderline High Triglyceride 150-199 mg/dLHigh Triglyceride: 200-499 mg/dLVery High Triglyceride: greater than or equal to 5OO mg/dL Cholesterol 212(H) <200 mg/dL [facility] Comment:Desirable Cholestero l: less than 200 mg/dLBorderline High Cholesterol: 200-239 mg/dLHigh Cholesterol: greater than 239 mg/dL LDL Cholesterol Calculated 140(H) <100 mg/dL [facility] Comment:Desirable LDL: less than 100 mg/dLNear Optimal/Above Optimal LDL: 110- 129 mg/dLBorderline High LDL: 130-159 mg/dLHigh LDL: 160-189 mg/dLVery High LDL: greater than or equal to 190 mg/dL HDL Cholesterol 31(L) >40 mg/dL [facility] Comment:Desirable HDL: great er than 40 mg/dL Note: This HDL assay may give artificially low results in patients with liver disease. Blood Venous blood specimen / Unknown 09/13/2024 10:16 AM EST 09/13/2024 11:30 AM EST us Aaliyah Hernandez MD LAB BLOOD ORDERABLES Final Result Performing Organization Address City/[facility] Co de Phone Number [facility] [address] [place] [phone] * Creatinine, Random Urine (04/23/2024 8:19 AM EDT) Creatinine, Urine 308.33 mg/dL [facility] 04/23/2024 8:19 AM EDT 04/23/2024 10:33 AM EDT us Generic External Data Provider LAB URINE ORDERAB LES Final Result Performing Organization Address [facility] Co de Phone Number [facility] [address] [place] [address] [phone] * Cologuard?? colon cancer screening (06/08/2023 8:20 AM EDT) Cologuard Result Negative Negative 06/15/20 4:38 AM EDT [employer] (CLIA #:[id number]) Comment: NEGATIVE TEST RESULT. A negative Cologuard result indicates a low likelihood that a colorectal cancer (CRC) or advanced adenoma (adenomatous polyps with more advanced pre-malignant features) ??is present. The chance that a person with a negative Cologuard test has a colorectal cancer is less than 1 in 1500 (negative predictive value >99.9%) or has an ??advanced adenoma is less than ??5.3% (negative predictive value 94.7%). These data are based on a prospective cross-sectional study of 10,000 individuals at average risk for colorectal cancer who were screened with both Cologuard and colonoscopy. (Terrance Ellison al, N Engl J Med 2014;370(14):1286- 1297) The normal value (reference range) for this assay is negative. COLOGUARD RE-SCREENING RECOMMENDATION: Periodic colorectal cancer screening is an important part of preventive healthcare for asymptomatic individuals at average risk for colorectal cancer. ??Following a negative Cologuard result, the [place] Cancer Society and U.S. Multi-Society Task Force screening guidelines recommend a Cologuard re-screening interval of 3 years. References: [place] Cancer Society Guideline for Colorectal Cancer Screening: https://www.cancer.org/cancer/bqxvb-ohcvqw-hbybrz/wluiuhqkw-rhmkdyhrd-bysvbgt/ac s-rec ommendations.html.; Ming DK, Branden FOLEY, Doc MoraK, Colorectal Cancer Screening: Recommendations for Physicians and Patients from the U.S. Multi-Society Task Force on Colorectal Cancer Screening , Am J Gastroenterology 2017; 112:7908-2530. TEST DESCRIPTION: Composite algorithmic analysis of stool DNA-biomarkers with hemoglobin immunoassay. ?? Quantitative values of individual biomarkers are not reportable and are not associated with individual biomarker result reference ranges. Cologuard is intended for colorectal cancer screening of adults of either sex, 45 years or older, who are at average-risk for colorectal cancer (CRC). Cologuard has been approved for use by the U.S. FDA. The performance of Cologuard was established in a cross sectional study of average-risk adults aged 50-84. Cologuard performance in patients ages 45 to 49 years was estimated by sub-group analysis of near-age groups. Colonoscopies performed for a positive result may find as the most clinically significant lesion: colorectal cancer [4.0%], advanced adenoma (including sessile serrated polyps greater than or equal to 1cm diameter) [20%] or non- advanced adenoma [31%]; or no colorectal neoplasia [45%]. These estimates are derived from a prospective cross-sectional screening study of 10,000 individuals at average risk for colorectal cancer who were screened with both Cologuard and colonoscopy. (Terrance Matt et al, N Engl J Med 2014;370(14):2405-8328.) Cologuard may produce a false negative or false positive result (no colorectal cancer or precancerous polyp present at colonoscopy follow up). A negative Cologuard test result does not guarantee the absence of CRC or advanced adenoma (pre-cancer). The current Cologuard screening interval is every 3 years. ([place] [employer] Society and U.S. Multi-Society Task Force). Cologuard performance data in a 10,000 patient pivotal study using colonoscopy as the reference method can be accessed at the following location: www.Sumpto/results. Additional description of the Cologuard test process, warnings and precautions can be found at www.[employer].com. Stool specimen (specimen) 06/08/2023 8:20 AM EDT 06/09/2023 3:33 PM EDT Aaliyah Hernandez MD LAB MOLECULAR DIAGNOS TICS ORDERABLES Final Result [employer] (CLIA #:[id number]) [place] [address], from Last 3 Months or Most Recently Relevant to Health Maintenance [place] [address] [place] [address] C3 Care Teams Art Librarian Relationship Specialty Start Date End Date Aaliyah Roche MD [address] [place] [phone] PCP - General Family Medicine 07/03/19
--- OUTSIDE RECORDS SUMMARY | 2024-12-19 14:09 | XMS_ITS | Encounter Summary ---
Author Organization [employer] Address [address] 7[address] [place] [address] Care Team Providers Care Base Engineer Name Role Phone Aaliyah Roche MD Primary Care Provide r Reason for Visit * Reason Comments Med Refill Encounter Details Date Type Department Care Team ([facility] st Contact Info) Description 10/21/2024 Refill [facility] MEDICINE [address] [place], [place] [phone] Aaliyah Roche MD [address] [place], [place] [phone] Dyslipidemia Social History Tobacco Use Types Packs/Day Years [...] housing situation today? I have raoul huber 06/12/[address] you li ve. Do you have problems with any of the following? None of the above 06/12/2023 Food Insecurity Answer Date Recorded Within the past 12 months, y ou worried that your food would run out before you got money to buy more: Never True 06/12/2023 Within the past 12 months,th e food you bought just didn't last and you didn't have enough money to get more: Never True Transportation Answer Date Recorded In the past 12 months, has l ack of transportation kept you from medical appts, meetings, work or from getting things needed for daily living? No 06/12/2023 Utilities Answer Date Recorded In the past 12 months, has t he electric, gas, oil or water company threatened to shut off services in your home? No 06/12/2023 Depression Answer Date Recorded Patient Health Questionnaire-2 Score 6 06/05/2024 Sex and Gender Information Value Date Recorded Sex Assigned at Male 06/27/2022 10:20 AM EDT Legal Sex Male 10:20 AM EDT Gender Identity Male 06/27/2022 10:20 AM EDT Sexual Orientation Straight 06/27/2022 10 :20 AM EDT documented as of this encounter Plan of Treatment Not on file documented as of this encounter Visit Diagnoses Diagnosis Dyslipidemia Other and unspecified hyperlipidemia documented in this encounter Additional Health Concerns Assessment Noted Time PHQ-9 Depression Total Score: 12 024 11:05 AM EDT documented as of this encounter Care Teams Base Engineer Relationship Specialty Start Date End Date Aaliyah Roche MD [address] [place] [address] PCP - General Family Medicine 07/03/19 documented as of this encounter
--- OUTSIDE RECORDS SUMMARY | 2024-12-19 14:09 | XMS_ITS | Encounter Summary ---
Author Organization [employer] Address [address] [facility] [address] [place] [address] Care Team Providers Care Cable Installer Repairer Name Role Phone Aaliyah Roche MD Primary Care Provide r Encounter Details Date Type Department Care Team (Latest Contact Info) Description 12/17/2024 Travel Social History Tobacco Use Types Packs/Day Years [...] Diagnoses Not on filedocumented in this encounter Additional Health Concerns Assessment Noted Time PHQ-9 Depression Total Score: 12 024 11:05 AM EDT documented as of this encounter Care Teams Cable Installer Repairer Relationship Specialty Start Date End Date Aaliyah Roche MD [address] [place] [address] PCP - General Family Medicine 07/03/19 documented as of this encounter
--- OUTSIDE RECORDS SUMMARY | 2024-12-19 14:09 | XMS_ITS | Encounter Summary ---
Author Organization [employer] Address [address] [facility] [address] [place] [address] Care Team Providers Care Catalyst Manufacturing Operator Name Role Phone Aaliyah Roche MD Primary Care Provide r Encounter Details Date Type Department Care Team ([facility] st Contact Info) Description 01/06/2023 Orders Only [facility] CHC MED & PEDS [address] [place], [place] [phone] Alyssa Mackey LPN Social History Tobacco Use Types Packs/Day Years Used Date Smoking Tobacco: Never Smokeless Tobacco: Never Alcohol Use Standard Drinks/Week Comments Not Currently 0 (1 standard drink = 0.6 oz pur e alcohol) Sex and Gender Information Value Date Recorded Sex Assigned at Male 06/27/2022 10:20 AM EDT Legal Sex Male 10:20 AM EDT Gender Identity Male 06/27/2022 10:20 AM EDT Sexual Orientation Straight 06/27/2022 10 :20 AM EDT COVID-19 Exposure Response Date Recorded In the last 10 days, have yo u been in contact with someone who was confirmed or suspected to have Coronavirus/COVID-19? No / Unsure 01/03/2023 3:15 PM EDT documented as of this encounter Plan of Treatment Not on file documented as of this encounter Visit Diagnoses Not on filedocumented in this encounter Care Teams Catalyst Manufacturing Operator Relationship Specialty Start Date End Date Aaliyah Roche MD [address] [place] [phone] PCP - General Family Medicine 07/03/19 documented as of this encounter
--- OUTSIDE RECORDS SUMMARY | 2024-12-19 14:09 | XMS_ITS | Encounter Summary ---
Author Organization [employer] Address [address] [facility] 7t [place] [address] Care Team Providers Care Special Education Resource Room Teacher Name Role Phone Aaliyah Roche MD Primary Care Provide r Reason for Visit * Reason Comments Med Refill Encounter Details Date Type Department Care Team ([facility] st Contact Info) Description 03/12/2023 Refill C [facility] MED & PEDS [address] [place], [place] [phone] Dominga Enrique MD [address] [place], [place] [phone] Dyslipidemia Social History Tobacco Use Types Packs/Day [...] and unspecified hyperlipidemia documented in this encounter Care Teams Special Education Resource Room Teacher Relationship Specialty Start Date End Date Aaliyah Roche MD [address] [place], [place] [phone] PCP - General Family Medicine 07/03/19 documented as of this encounter
--- OUTSIDE RECORDS SUMMARY | 2024-12-19 14:09 | XMS_ITS | Encounter Summary ---
Author Organization [facility] Address [id number] [place] [phone] Care Team Providers Care Contract Technical Writer Name Role Phone Aaliyah Roche MD Primary Care Provide r Reason for Visit * Reason Comments Obesity Encounter Details Date Type Department Care Team (Late st Contact Info) Description 12/19/2024 10:30 AM EDT Nutrition Bariatric Surgery - [place] [address] [place] [phone] Ann[address]le George [address] [place], [place] [phone] Class 2 obesity with body mass index (BMI) of 37.0 to 37.9 in adult, unspecified obesity type, unspecified whether serious comorbidity present (Primary Dx) Social History Tobacco Use Types Packs/Day Years [...] on file Sexual Orientation Not on file documented as of this encounter Last Filed Vital Signs Vital Sign Reading Time Taken Comments Blood Pressure - - Pulse - - Temperature - - Respiratory Rate - - Oxygen Saturation - - Inhaled Oxygen Concentration - - Weight 117 kg (259 lb) 12/19/2024 10:20 AM EDT Height - - Body Mass Index 37.16 07/23/2024 11:51 AM EST documented in this encounter Progress Notes * Annabelle George RD - 12/19/2024 10:30 AM EDT Patient-created Goals: Wants to start strength training and cardio/ restart [employer] Continue general multivitamin Protein goal: 60-80g daily First priority protein followed by non starchy vegetables then high quality carbohydrates such as fruits and whole grains Aim for 2-3 servings of non starchy vegetables daily Fluid goal: 64 ounces daily Continue to not skip meals documented in this encounter Plan of Treatment Upcoming Encounters Date Type Department Care Team (Late st Contact Info) Description 02/21/2025 10:00 AM EDT Nutrition Bariatric Surgery - [place] [address] [phone] [phone] 03/13/2025 2:15 PM EDT Office Visit Bariatric Surgery [address] [phone] Francesca Bermudez PA [address] [phone] documented as of this encounter Visit Diagnoses Diagnosis Class 2 obesity with body mass index (BMI) of 37.0 to 37.9 in adult, unspecified obesity type, unspecified whether serious comorbidity present- Primary documented in this encounter Care Teams Contract Technical Writer Relationship Specialty Start Date End Date Aaliyah Roche MD [address] [place] [phone] PCP - General Internal Medicine 08/24/21 documented as of this encounter
== END 2024-12-19 12:14 | disposition home or self-care (01) ==
LOC: HO.PMCPRC 11:46
PROVIDERS: PCP Internal Medicine; Visit Provider Internal Medicine
DX: M16.11 Unilateral primary osteoarthritis, right hip (principal)
CPT/HCPCS: 20610; 77002

== ENCOUNTER 2025-01-10 08:51 | Outpatient (REF) | payer MEDICAID, SELFPAY ==
--- OUTSIDE RECORDS SUMMARY | 2025-01-10 09:06 | XMS_ITS | Encounter Summary ---
Author Organization [employer] Address [address] [address] 7[address] [place] [address] Care Team Providers Care Supervisor Housecleaner Name Role Phone Aaliyah Roche MD Primary Care Provide r Reason for Visit * Reason Comments Med Refill Encounter Details Date Type Department Care Team (Late st Contact Info) Description 03/12/2023 Refill [facility] CHC MED & PEDS [address] [place], [place] [phone] Dominga Enrique MD [address] [place], [place] [phone] Dyslipidemia Social History Tobacco Use Types Packs/Day [...] hyperlipidemia documented in this encounter Care Teams Supervisor Housecleaner Relationship Specialty Start Date End Date Aaliyah Roche MD [address] [place], [place] [phone] PCP - General Family Medicine 07/03/19 documented as of this encounter
--- OUTSIDE RECORDS SUMMARY | 2025-01-10 09:06 | XMS_ITS | Clinical Summary ---
Author Organization [facility] Address [address] [place] [address] Care Team Providers Care Commercial Green Retrofit Architect Name Role Phone Sabra Lim Primary Care [...] of 3 - 19+ 3-dose series) 03/28 CT Lung Cancer Screening (Baseline) 2015 Pneumococcal Vaccine: 50+ Years (1 of 1 - PCV) 015 Zoster Vaccines (1 of 2) 2015 DTaP,Tdap,and Td Vaccines (2 - Td or Tdap) 05/21/2023 05/21/2013 Alcohol/Substance Use Screening 08/28/2024 Influenza Vaccine (Season Ended) 2025 05/21/20 13 RSV Vaccine (60+ years old a nd patients) (1 - 1-dose 75+ series) 2040 Insurance [employer] Care Teams Commercial Green Retrofit Architect Relationship Specialty Start Date End Date Sabra Lim [address] [place] [address] [place] [address] PCP - General 09/04/20
--- OUTSIDE RECORDS SUMMARY | 2025-01-10 09:06 | XMS_ITS | Referral Summary ---
Author Organization [facility] Address [address] [place] [address] Care Team Providers Care Lathe Operator Name Role Phone Sabra Lim Primary [...] Plan of Treatment Not on file Insurance [facility] [place]SE [place] [id number] Care Teams Lathe Operator Relationship Specialty Start Date End Date Sabra Lim [address] [place] [address] PCP - General 09/04/20
--- OUTSIDE RECORDS SUMMARY | 2025-01-10 09:06 | XMS_ITS | Clinical Summary ---
Author Organization [facility] Address 175 [place] [address] Phone Care Team Providers Care Dice Table Operator Name Role Phone Aaliyah Roche MD [...] DAYS FOR 28 DAYS. 2 mL 5 01/29/20 25 Active tirzepatide, weight loss, (Zepbound) 2.5 mg/0.5 mL injection INJECT 0.5 ML (2.5 MG TOTAL) UNDER THE SKIN EVERY 7 (SEVEN) DAYS FOR 28 DAYS. 2 mL 5 01/01/20 25 Discontinued Active Problems Problem Noted Date Diagnosed Date Class 3 severe obesity with body mass index (BMI) of 40.0 to 44.9 in adult (CMS/[facility] V24, [facility] V28) 06/11/2024 Obstructive sleep apnea 11/09/2020 Overview (06/11/2024): [...] Neg cardiac w/u and cta HH 04/2015 [facility] / nuclear stress done Encounters Date Type Department Care Team Description 12/19/2024 10:30 AM EDT Nutrition Bariatric Surgery [address] [phone] Class 2 obesity with body mass index (BMI) of 37.0 to 37.9 in adult, unspecified obesity type, unspecified whether serious comorbidity present (Primary Dx) 10/15/2024 1:00 PM EST Nutrition Bariatric Surgery [address] [phone] Class 2 obesity with body mass index (BMI) of 39.0 to 39.9 in adult, unspecified obesity type, unspecified whether serious comorbidity present (Primary Dx) from Last 3 Months Immunizations [...] PROCEDURE: HISTORICAL BLADDER SURGERY ESOPHAGOGASTRODUODENOSCOPY 09/24/15 PROCEDURE: KS ESOPHAGOGASTRODUODENOSCOPY TRANSORAL DIAGNOSTIC; COMMENT: Duodenitis, otherwise normal [...] Comments Brother 1 Brother 2 Alive HTN, ID at 55 y o Brother 3 mi [...] 02/21/2025 10:00 AM EDT Nutrition Bariatric Surgery [facility] [address] [phone] Katty Stewart, VALERY [address] [phone] 03/13/2025 2:15 PM EDT Office Visit Bariatric Surgery [address] [phone] Francesca Bermudez PA [address] [address] 03/18/2025 10:15 AM EDT Consult Orthopedic Surgery [facility] [address] [phone] Venkata Mejia, EDDI [address] [address] Health Maintenance Due Date Last Done Comments [...] * Annual BMP Blood Test (03/24/2016) Pathologist [facility] Annual BMP Blood Test abstracted Result [facility] Provider HEALTH MAINTENANCE Final Result * (ABNORMAL) Lipid panel (03/24/2016) Pathologist [facility] LDL/HDL Ratio 5(A) 0 - 4 Triglycerides 257(A) 0 - 150 mg/dL Cholesterol 187 0 - 200 mg/dL HDL 38(A) >=40 mg/dL LDL Cholesterol 98 0 - 100 mg/dL Blood Venous blood specimen / Unknown Result [facility] Provider LAB BLOOD ORDERABLES Delisa l Result * Hemoglobin A1c (12/30/2015) Pathologist [facility] Hemoglobin A1C 5.6 4.0 - 6.0 % Blood Venous blood specimen / Unknown Result [facility] Provider LAB BLOOD ORDERABLES Delisa l Result * HIV Screening (05/25/2013) Pathologist [facility] HIV Screening abstracted Result [facility] Provider HEALTH MAINTENANCE Final Result * Hepatitis C Screening (05/25/2013) Pathologist [facility] Hepatitis C Screening abstracted [facility] Provider HEALTH MAINTENANCE Final Result from Last 3 Months or Most Recently Relevant to Health Maintenance Insurance MEDICAID - [place] Care Teams Dice Table Operator Relationship Specialty Start Date End Date Aaliyah Roche MD [address] [place] [phone] PCP - General Internal Medicine 08/24/21
--- OUTSIDE RECORDS SUMMARY | 2025-01-10 09:06 | XMS_ITS | Encounter Summary ---
Author Organization [employer] Address [address] [facility] [address] [place] [address] Care Team Providers Care Value Stream Leader Name Role Phone Aaliyah Roche MD Primary Care Provide r Reason for Visit * Reason Comments Med Refill Encounter Details Date Type Department Care Team ([facility] st Contact Info) Description 12/18/2024 Refill [facility] MEDICINE [address] [place], [place] [phone] Aaliyah Roche MD [address] [place], [place] [phone] Essential hypertension Social History Tobacco Use Types [...] documented as of this encounter Care Teams Value Stream Leader Relationship Specialty Start Date End Date Aaliyah Roche MD [address] [place] [phone] PCP - General Family Medicine 07/03/19 documented as of this encounter
--- OUTSIDE RECORDS SUMMARY | 2025-01-10 09:06 | XMS_ITS | Encounter Summary ---
Author Organization [employer] Address [address] [facility] [address] [place] [address] Care Team Providers Care Needle Loom Operator Helper Name Role Phone Aaliyah Roche MD Primary Care Provide r Reason for Visit * Reason Comments Med Refill Encounter Details Date Type Department Care Team ([facility] st Contact Info) Description 12/21/2024 Refill [facility] MEDICINE [address] [place], [place] [phone] Aaliyah Roche MD [address] [place], [place] [phone] Essential hypertension Social History Tobacco Use Types [...] documented as of this encounter Care Teams Needle Loom Operator Helper Relationship Specialty Start Date End Date Aaliyah Roche MD [address] [place] [phone] PCP - General Family Medicine 07/03/19 documented as of this encounter
--- OUTSIDE RECORDS SUMMARY | 2025-01-10 09:06 | XMS_ITS | Encounter Summary ---
Author Organization [employer] Address [address] [facility] [address] [address] [place] [address] Care Team Providers Care Seismic Computer Name Role Phone Aaliyah Roche MD Primary Care Provide r Encounter Details Date Type Department Care Team ([facility] st Contact Info) Description 01/06/2023 Orders Only [facility] CHC MED & PEDS [address] [place], [place] [phone] Alyssa Mackey LPN Social History Tobacco Use [...] on filedocumented in this encounter Care Teams Seismic Computer Relationship Specialty Start Date End Date Aaliyah Roche MD [address] [place] [phone] PCP - General Family Medicine 07/03/19 documented as of this encounter
--- OUTSIDE RECORDS SUMMARY | 2025-01-10 09:06 | XMS_ITS | Encounter Summary ---
Author Organization [employer] Address [address] [facility] [address] [place] [address] Care Team Providers Care Chief Analytics Officer Name Role Phone Aaliyah Roche MD Primary Care Provide r Reason for Visit * Reason Comments Med Refill Encounter Details Date Type Department Care Team ([facility] st Contact Info) Description 10/21/2024 Refill [facility] MEDICINE [address] [place], [place] [phone] Aaliyah Roche MD [address] [place], [place] [phone] Dyslipidemia Social History Tobacco Use Types Packs/Day [...] documented as of this encounter Care Teams Chief Analytics Officer Relationship Specialty Start Date End Date Aaliyah Roche MD [address] [place] [phone] PCP - General Family Medicine 07/03/19 documented as of this encounter
--- OUTSIDE RECORDS SUMMARY | 2025-01-10 09:06 | XMS_ITS | Clinical Summary ---
Author Organization [employer] Address [address] [facility] 7[address] [place] [address] Care Team Providers Care Employment Programs Analyst Name Role Phone Aaliyah Roche MD Primary Care Provide r Allergies Active Allergy Reactions Criticality Noted Date Comments Baclofen Rash High 01/12/2009 Other reaction(s): full body rash Cyclobenzaprine Rash Low 05/14/2021 Duloxetine High 02/10/2023 Other reaction(s): Nightmare Medications glucose blood test stripIndications :Impaired fasting glucose Use daily to check finger stick BS 100 each 12 01/04/20 23 Active Symbicort 160-4.5 MCG/ACT inhaler INHALE 2 PUFF TWICE A DAY *RINSE MOUTH AND THROAT AFTER USE* 05/24/20 23 Active metFORMIN XR (Glucophage-XR) 500 MG 24 hr tabletIndication s:Prediabetes TAKE 1 TABLET BY MOUTH WITH EVENING MEAL 90 tablet 1 04/16/20 24 Active Additional Information Patient not taking.Reported on 07/22/2024 prazosin (Minipress) 1 MG capsule TAKE 1 CAPSULE BY MOUTH EVERYDAY AT BEDTIME 90 capsule 1 04/16/20 24 Active Diclofenac Sodium 1 % gelIndications:A rthralgia, unspecified joint APPLY 2 GRAMS TO THE [...] FOOD, Reported on 07/22/2024 lisinopril 20 MG tabletIndication s:Essential hypertension TAKE 1 TABLET BY MOUTH EVERY DAY IN THE MORNING 90 tablet 1 07/02/20 24 Active Ventolin HFA 108 (90 Base) MCG/ACT inhaler Inhale 2 puffs every 6 (six) hours. Active Azelastine HCl 137 MCG/SPRAY solution SPRAY 2 SPRAYS INTO EACH NOSTRIL TWICE A DAY FOR 30 DAYS 07/02/20 Active fluticasone (Flonase) 50 MCG/ACT nasal spray Administer 1 spray into each nostril Once per day. 04/16/20 24 Active ipratropium (Atrovent) 0.03 % nasal spray Administer 2 sprays into each nostril 3 times daily. 12/07/19 24 Active pravastatin (Pravachol) 20 MG tabletIndication s:Essential hypertension Take 1 tablet (20 mg) by mouth Once per day. 30 tablet 11 11/14/19 Active amLODIPine (Norvasc) 10 MG tablet TAKE 1 TABLET BY MOUTH EVERY DAY IN THE MORNING 90 tablet 1 12/12/19 25 Active albuterol (2.5 MG/3ML) 0.083% nebulizer solution Take 3 mL (2.5 mg) by nebulization every 6 (six) hours if needed for wheezing or shortness of breath. 75 mL 1 12/18/19 25 026 Active Nebulizer misc 1 Units Every 4-6 hours as needed (Q6 hr PRN per albuterol order). Pt provided Acceleron Nebulizer machine. Education provided. Pt verbalized understanding. Active doxycycline (Vibramycin) 100 MG capsule Take 1 capsule (100 mg) by mouth 2 times daily for 5 days. Take with at least 8 ounces (large glass) of water, do not lie down for 30 minutes after 10 capsule 12/18/19 25 025 predniSONE (Deltasone) 20 MG tablet Take 2 tablets (40 mg) by mouth Once per day for 5 days. 10 tablet 12/18/19 025 Active Problems Problem Noted Date Diagnosed Date [...] macrobid Encounter for preventative adult health care exhomer mination 05/30/2023 Assessment & Plan (05/30/2023 4:17 [...] PM EDT): [facility] Assessment & Plan (05/08/2023 12:47 PM EDT): [...] meals. Check fgstk daily, glucometer sent to [facility] pharmacy Encouraged physical activity as tolerated. FU [...] 09/05/2022 Obstructive sleep apnea 11/09/2020 Overview (01/03/2023): [facility] Polysomnogram Date 08/12/2019. Wt 273#; BMI 39. [...] Encounters Date Type Department Care Team Description 12/21/2024 Refill [facility] [address] [place] [address] Aaliyah Roche MD Essential hypertension 12/18/2024 Refill [facility] [address] [place] [address] Aaliyah Roche MD Essential hypertension 12/17/2024 9:20 AM EDT Office Visit [facility] [address] [place] [address] Yung Dao MD COPD exacerbation (CMS/HCC) (Primary Dx); Nasal congestion 12/17/2024 Travel 12/10/2024 Refill [facility] [address] [place] [address] Aaliyah Roceh MD 11/29/2024 1:00 PM EDT Office Visit [facility] [address] [place] [phone] Jaswant Durant MD 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) 11/29/2024 Travel 11/13/2024 10:30 AM EDT Office Visit [facility] [address] [place] [phone] Aaliyah Roche MD Essential hypertension (Primary Dx); Type 2 diabetes mellitus with hyperglycemia, without long-term current use of insulin (CMS/HCC); History of melanoma 11/13/2024 Travel 11/08/2024 Population Health Risk Score [facility] () [address] [phone] Provider, Population Health Generic 11/05/2024 Patient Outreach [facility] [address] [place] [phone] Aaliyah Roche MD Pre-visit Planning ((Unable to reach for PVP screening, LVM)) 10/21/2024 Refill [facility] [address] [place] [address] [phone] Aaliyah Roche MD Dyslipidemia from Last 3 Months Immunizations Immunization Administration Dates Next Due Influenza injectable quadriv [...] hyperglycemia, without long-term current use of insulin ([facility]) POCT GLUCOSE Routine 11/13/2024 10:36 AM EDT Type 2 diabetes mellitus with hyperglycemia, without long-term current use of insulin ([facility]) LIPID PANEL, STANDARD Routine 09/13/2024 10:16 AM EST Class 3 severe obesity due to excess calories with serious comorbidity and body mass index (BMI) of 40.0 to 44.9 in adult ([facility]) CREATININE, RANDOM URINE Routine 04/23/2024 8:19 AM EDT LAB COLOGUARD?? COLON CANCER SCREEN Routine 06/08/2023 8:20 AM EDT Colon cancer screening from Last 3 Months or Most Recently Relevant to Health Maintenance Results * POCT Rapid Influenza B JEAN ID NOW (12/17/2024 9:40 AM EDT) Influenza B Negative Negative, Indeterminate [facility] QC Media Lot # [id number] [facility] Lot# Expiration Date [facility] Swab 12/17/2024 9:40 AM EDT us Yung Dao MD POINT OF CARE TEST ENTER/EDIT OR DERABLES Final Result Performing Organization Address City/State/[facility] Co de Phone Number [facility] [address] [place] [phone] * POCT Rapid Influenza A JEAN ID NOW (12/17/2024 9:40 AM EDT) Influenza A Negative Negative, Indeterminate [facility] QC Media Lot # [id number] [facility] Lot# Expiration Date [facility] Swab 12/17/2024 9:40 AM EDT us Yung Dao MD POINT OF CARE TEST ENTER/EDIT OR DERABLES Final Result [facility] [address] [place] [phone] * POCT Rapid Covid-19 BinaxNOW (12/17/2024 9:37 AM EDT) Rapid COVID Ag Negative QC Media Lot # [id number] Lot# Expiration Date Swab 12/17/2024 9:37 AM EDT Yung Dao MD POINT OF CARE TEST ENTER/EDIT OR DERABLES Final Result * POCT HGB A1C (11/13/2024 2:22 PM EDT) Hemoglobin A1C 5.6 4.0 - 6.0 % QC Media Lot # [id number] Lot# Expiration Date Blood 11/13/2024 2:22 PM EDT Aaliyah Hernandez MD POINT OF CARE TEST EN TER/EDIT ORDERABLES Final Result * POCT Glucose (11/13/2024 10:36 AM EDT) Glucose Blood, POC 104 60 - 200 mg/dL Comment:random QC Media Lot # [id number] Lot# Expiration Date Blood Capillary blood specimen / Unknown 11/13/2024 10:36 AM EDT Aaliyah Hernandez MD POINT OF CARE TEST EN TER/EDIT ORDERABLES Final Result * (ABNORMAL) Lipid Panel, Standard (09/13/2024 10:16 AM EST) Triglycerides 209(H) <150 mg/dL [facility] Comment:Desirable Triglyceri de: less than 150 mg/dLBorderline High Triglyceride 150-199 mg/dLHigh Triglyceride: 200-499 mg/dLVery High Triglyceride: greater than or equal to 5OO mg/dL Cholesterol 212(H) <200 mg/dL [facility] Comment:Desirable Cholestero l: less than 200 mg/dLBorderline High Cholesterol: 200-239 mg/dLHigh Cholesterol: greater than 239 mg/dL LDL Cholesterol Calculated 140(H) <100 mg/dL [facility] Comment:Desirable LDL: less than 100 mg/dLNear Optimal/Above Optimal LDL: 110- 129 mg/dLBorderline High LDL: 130-159 mg/dLHigh LDL: 160-189 mg/dLVery High LDL: greater than or equal to 190 mg/dL HDL Cholesterol 31(L) >40 mg/dL [facility] Comment:Desirable HDL: great er than 40 mg/dL Note: This HDL assay may give artificially low results in patients with liver disease. Blood Venous blood specimen / Unknown 09/13/2024 10:16 AM EST 09/13/2024 11:30 AM EST us Aaliyah Hernandez MD LAB BLOOD ORDERABLES Final Result Performing Organization Address City/[facility]/ZIP Co de Phone Number [facility] [address] [place] [phone] * Creatinine, Random Urine (04/23/2024 8:19 AM EDT) Creatinine, Urine 308.33 mg/dL [facility] 04/23/2024 8:19 AM EDT 04/23/2024 10:33 AM EDT us Generic External Data Provider LAB URINE ORDERAB LES Final Result Performing Organization Address [facility] Co de Phone Number [facility] [address] [place] [phone] * Cologuard?? colon cancer screening (06/08/2023 8:20 AM EDT) Cologuard Result Negative Negative 06/15/20 4:38 AM EDT [facility] (CLIA #:[id number]) Comment: NEGATIVE TEST RESULT. A negative Cologuard [...] screened with both Cologuard and colonoscopy. (Terrance Hogan. et al, N Engl J Med 2014;370(14):1286- 1297) The normal value (reference range) for this assay is negative. COLOGUARD RE-SCREENING RECOMMENDATION: Periodic colorectal cancer screening is an important part of preventive healthcare for asymptomatic individuals at average risk for colorectal cancer. ??Following a negative Cologuard result, the [place] Cancer Society and U.S. Multi-Society Task Force screening guidelines recommend a Cologuard re-screening interval of 3 years. References: [place] [employer] Guideline for Colorectal Cancer Screening: https://www.cancer.org/cancer/azelk-bvqvxy-csmcct/mxsffbcky-qbnjqjrde-ffangxp/ac s-rec ommendations.html.; Ming JARA, Branden FOLEY, Doc MoraK, Colorectal Cancer Screening: Recommendations for Physicians and Patients from the U.S. Multi-Society Task Force on Colorectal Cancer Screening , Am J Gastroenterology 2017; 112:6939-6076. TEST DESCRIPTION: Composite algorithmic analysis of stool [...] Matt et al, N Engl J Med 2014;370(14):1265-0403.) Cologuard may produce a false negative or false positive result (no colorectal cancer or precancerous polyp present at colonoscopy follow up). A negative Cologuard test result does not guarantee the absence of CRC or advanced adenoma (pre-cancer). The current Cologuard screening interval is every 3 years. ([place] Cancer Society and U.S. Multi-Society Task Force). Cologuard performance data in a 10,000 patient pivotal study using colonoscopy as the reference method can be accessed at the following location: www.[employer]/results. Additional description of the Cologuard test process, warnings and precautions can be found at www.[employer].com. Stool specimen (specimen) 06/08/2023 8:20 AM EDT 06/09/2023 3:33 PM EDT Aaliyah Hernandez MD LAB MOLECULAR DIAGNOS TICS ORDERABLES Final Result [facility] (CLIA #:[id number]) [address] [place] [address], from Last 3 Months or Most Recently Relevant to Health Maintenance Insurance [facility] C3 Care Teams Employment Programs Analyst Relationship Specialty Start Date End Date Aaliyah Roche MD [address] [place] [phone] PCP - General Family Medicine 07/03/19
== END 2025-01-10 08:52 | disposition home or self-care (01) ==
LOC: HO.LAB 08:51
PROVIDERS: PCP Internal Medicine; Visit Provider Urology
DX: Z12.5 Encounter for screening for malignant neoplasm of prostate (principal)
CPT/HCPCS: 36415; 84153

== ENCOUNTER 2025-01-13 08:12 | Outpatient (AMB) | payer MEDICAID, SELFPAY ==
--- OUTSIDE RECORDS SUMMARY | 2025-01-13 08:16 | XMS_ITS | Encounter Summary ---
Author Organization [employer] Address [address] 7[address] [place] [address] Care Team Providers Care Postal Mail Carrier Name Role Phone Aaliyah Roche MD Primary Care Provide r Encounter Details Date Type Department Care Team ([facility] Contact Info) Description 01/10/2025 Orders Only GENERIC EXTERNAL DATA DEPARTMENT Provider, Generic External Data Social History Tobacco Use Types Packs/Day Years [...] Procedure Name Priority Date/Time Associated Diagnosis Comments PSA, TOTAL WITH REFLEX TO PSA, FREE Routine 01/10/2025 9:00 AM EDT documented in this encounter Results * PSA, Total With Reflex to PSA, Free (01/10/2025 9:00 AM EDT) PSA,Total (Free>4and<10) 2.00 0.00 - 4.00 ng/mL [facility] Comment:A Free PSA was not p erformed: The percentage of Free PSA can be used to enhance the differentiation of prostate cancer from benign prostatic disease in subjects whose PSA levels are between 4.0 and 10.0 ng/mL. For subjects whose PSA levels are below 4.0 or above 10.0 ng/mL, the risk of prostate cancer is determined on the basis of the PSA alone. Therefore the % Free PSA is recommended only for those subjects whose PSA levels are between 4.0 and 10.0 ng/mL.PSA methodology: Galicia Alinity i ChemiluminescentMicroparticle Immunoassay (CMIA) 01/10/2025 9:00 AM EDT 01/10/2025 9:04 AM EDT us Generic External Data Provider LAB BLOOD ORDERAB LES Final Result [facility] [address] [place] [phone] documented in this encounter Visit Diagnoses Not on filedocumented in this encounter Additional Health Concerns Assessment Noted Time PHQ-9 Depression Total Score: 12 024 11:05 AM EDT documented as of this encounter Care Teams Postal Mail Carrier Relationship Specialty Start Date End Date Aaliyah Roche MD [address] [place] [address] PCP - General Family Medicine 07/03/19 documented as of this encounter
--- OUTSIDE RECORDS SUMMARY | 2025-01-13 08:16 | XMS_ITS | Clinical Summary ---
Author Organization [employer] Address [address] [facility] 7t [place] [address] Care Team Providers Care Silo Painter Name Role Phone Aaliyah Roche MD Primary [...] [facility] Assessment & Plan (05/08/2023 12:47 PM [...] meals. Check fgstk daily, glucometer sent to [facility] pharmacy Encouraged physical activity as tolerated. [...] 09/05/2022 Obstructive sleep apnea 11/09/2020 Overview (01/03/2023): [facility] Polysomnogram Date 08/12/2019. Wt 273#; BMI 39. [...] Neg cardiac w/u and cta HH 04/2015 [facility] / nuclear stress done Encounters Date Type Department Care Team Description 01/10/2025 Orders Only GENERIC EXTERNAL DATA DEPARTMENT Provider, Generic External Data 12/21/2024 Refill [facility] [address] [place] [address] Aaliyah Roche MD Essential hypertension 12/18/2024 Refill [facility] [address] [place] [address] Aaliyah Roche MD Essential hypertension 12/17/2024 9:20 AM EDT Office Visit [facility] [address] [place] [address] Yung Dao MD COPD exacerbation ([facility]CC) (Primary Dx); Nasal congestion 12/17/2024 Travel 12/10/2024 Refill [facility] [address] [place] [address] Aaliyah Roche MD 11/29/2024 1:00 PM EDT Office Visit [facility] [address] [place] [phone] Jaswant Durant MD 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) 11/29/2024 Travel 11/13/2024 10:30 AM EDT Office Visit [facility] [address] [place] [phone] Aaliyah Roche MD Essential hypertension (Primary Dx); Type 2 diabetes mellitus with hyperglycemia, without long-term current use of insulin ([facility]); History of melanoma 11/13/2024 Travel 11/08/2024 Population Health Risk Score [facility] () Department [address] [place] [phone] Provider, Population Health Generic 11/05/2024 Patient Outreach [facility] [address] [place] [address] Aaliyah Roche MD Pre-visit Planning ((Unable to reach for PVP screening, LVM)) 10/21/2024 Refill [facility] [address] [place], [place] [phone] Aaliyah Roche MD Dyslipidemia from Last 3 [...] PSA, FREE Routine 01/10/2025 9:00 AM EDT POCT INFLUENZA B (ID NOW RAPID MOLECULAR) Routine 12/17/2024 9:40 AM EDT Nasal congestion POCT INFLUENZA A (ID NOW RAPID MOLECULAR) Routine 12/17/2024 9:40 AM EDT Nasal congestion POCT RAPID COVID ANTIGEN Routine 12/17/2024 9:37 AM EDT Nasal congestion POCT GLYCATED HEMOGLOBIN, TOTAL Routine 11/13/2024 2:22 PM EDT Type 2 diabetes mellitus with hyperglycemia, without long-term current use of insulin ([facility]) POCT GLUCOSE Routine 11/13/2024 10:36 AM EDT Type 2 diabetes mellitus with hyperglycemia, without long-term current use of insulin ([facility]) LIPID PANEL, STANDARD Routine 09/13/2024 10:16 AM EST Class 3 severe obesity due to excess calories with serious comorbidity and body mass index (BMI) of 40.0 to 44.9 in adult ([facility]) CREATININE, RANDOM URINE Routine 04/23/2024 8:19 AM EDT LAB COLOGUARD?? COLON CANCER SCREEN Routine 06/08/2023 8:20 AM EDT Colon cancer screening from Last 3 Months or Most Recently Relevant to Health Maintenance Results * PSA, Total With Reflex to PSA, Free (01/10/2025 9:00 AM EDT) PSA,Total (Free>4and<10) 2.00 0.00 - 4.00 ng/mL [facility] Comment:A Free PSA was not [...] are between 4.0 and 10.0 ng/mL.PSA methodology: Jean Alinity i ChemiluminescentMicroparticle Immunoassay (CMIA) 01/10/2025 9:00 AM EDT 01/10/2025 9:04 AM EDT us Generic External Data Provider LAB BLOOD ORDERAB LES Final Result Performing Organization Address [facility] Co de Phone Number [facility] [address] [place] [phone] * POCT Rapid Influenza B JEAN ID NOW (12/17/2024 9:40 AM EDT) Influenza B Negative Negative, Indeterminate [facility] QC Media Lot # [id number] [facility] Lot# Expiration Date [facility] Swab 12/17/2024 9:40 AM EDT Yung Dao MD POINT OF CARE TEST ENTER/EDIT OR DERABLES Final Result Performing Organization Address [facility] Co de Phone Number [facility] [address] [place] [phone] * POCT Rapid Influenza A JEAN ID NOW (12/17/2024 9:40 AM EDT) Influenza A Negative Negative, Indeterminate [facility] QC Media Lot # [id number] [facility] Lot# Expiration Date [facility] Swab 12/17/2024 9:40 AM EDT Yung Dao MD POINT OF CARE TEST ENTER/EDIT OR DERABLES Final Result Performing Organization Address [facility] Co de Phone Number [facility] [address] [place] [phone] * POCT Rapid Covid-19 BinaxNOW (12/17/2024 [...] POCT Glucose (11/13/2024 10:36 AM EDT) Pathologist [facility] Glucose Blood, POC 104 60 - 200 mg/dL Comment:random QC Media Lot # [id number] Lot# Expiration Date Blood Capillary blood specimen / Unknown 11/13/2024 10:36 AM EDT Aaliyah Hernandez MD POINT OF CARE TEST EN TER/EDIT ORDERABLES Final Result * (ABNORMAL) Lipid Panel, Standard (09/13/2024 10:16 AM EST) Triglycerides 209(H) <150 mg/dL [facility] Comment:Desirable Triglyceri de: less than 150 mg/dLBorderline High Triglyceride 150-199 mg/dLHigh Triglyceride: 200-499 mg/dLVery High Triglyceride: greater than or equal to 5OO mg/dL Cholesterol 212(H) <200 mg/dL [facility] Comment:Desirable Cholestero l: less than 200 mg/dLBorderline High Cholesterol: 200-239 mg/dLHigh Cholesterol: greater than 239 mg/dL LDL Cholesterol Calculated 140(H) <100 mg/dL [facility] Comment:Desirable LDL: less than 100 mg/dLNear Optimal/Above Optimal LDL: 110- 129 mg/dLBorderline High LDL: 130-159 mg/dLHigh LDL: 160-189 mg/dLVery High LDL: greater than or equal to 190 mg/dL HDL Cholesterol 31(L) >40 mg/dL [facility] Comment:Desirable HDL: great er than 40 mg/dL Note: This HDL assay may give artificially low results in patients with liver disease. Blood Venous blood specimen / Unknown 09/13/2024 10:16 AM EST 09/13/2024 11:30 AM EST us Aaliyah Hernandez MD LAB BLOOD ORDERABLES Final Result Performing Organization Address [facility]/ZIP Co de Phone Number [facility] [address] [place] [phone] * Creatinine, Random Urine (04/23/2024 8:19 AM EDT) Creatinine, Urine 308.33 mg/dL [facility] 04/23/2024 8:19 AM EDT 04/23/2024 10:33 AM EDT us Generic External Data Provider LAB URINE ORDERAB LES Final Result Performing Organization Address [facility] Co de Phone Number [facility] [address] [place] [phone] * Cologuard?? colon cancer screening (06/08/2023 8:20 AM EDT) Cologuard Result Negative Negative 06/15/20 4:38 AM EDT [facility] (CLIA #:[id number]) Comment: NEGATIVE TEST RESULT. A negative Cologuard [...] cancer. ??Following a negative Cologuard result, the [place] [employer] Society and U.S. Multi-Society Task Force screening guidelines recommend a Cologuard re-screening interval of 3 years. References: [place] [employer] Guideline for Colorectal Cancer Screening: https://www.cancer.org/cancer/cjrqs-enbmsx-ownbzn/wrkrjitrq-sjjtfmmxo-zfgnwdk/ac s-rec ommendations.html.; Ming DK, Branden FOLEY, Doc MoraK, Colorectal Cancer Screening: Recommendations for Physicians and Patients from the U.S. Multi-Society Task Force on Colorectal Cancer Screening , Am J Gastroenterology 2017; 112:2933-6295. TEST DESCRIPTION: Composite algorithmic analysis of stool [...] screened with both Cologuard and colonoscopy. (Terrance Doherty, N Engl J Med 2014;370(14):0603-9171.) Cologuard may produce a false negative or false positive result (no colorectal cancer or precancerous polyp present at colonoscopy follow up). A negative Cologuard test result does not guarantee the absence of CRC or advanced adenoma (pre-cancer). The current Cologuard screening interval is every 3 years. ([place] [employer] and U.S. Multi-Society Task Force). Cologuard performance data in a 10,000 patient pivotal study using colonoscopy as the reference method can be accessed at the following location: www.[employer]/results. Additional description of the Cologuard test process, warnings and precautions can be found at www.[facility] Health[facility]ard.com. Stool specimen (specimen) 06/08/2023 8:20 AM EDT 06/09/2023 3:33 PM EDT Aaliyah Hernandez MD LAB MOLECULAR DIAGNOS TICS ORDERABLES Final Result [facility] (CLIA #:[id number]) [place] [address], from Last 3 Months or Most Recently Relevant to Health Maintenance Insurance [employer] [place] [employer] [id number] Care Teams Silo Painter Relationship Specialty Start Date End Date Aaliyah Roche MD [address] [place] [address] [place] [address] PCP - General Family Medicine 07/03/19
--- OUTSIDE RECORDS SUMMARY | 2025-01-13 08:16 | XMS_ITS | Encounter Summary ---
Author Organization [employer] Address [address] [facility] [address] [place] [address] Care Team Providers Care Associate Professor Of Mathematics Name Role Phone Aaliyah Roche MD Primary Care Provide r Reason for Visit * Reason Comments Med Refill Encounter Details Date Type Department Care Team ([facility] st Contact Info) Description 12/21/2024 Refill [facility] [address] [place], [place] [phone] Aaliyah Roche MD [address] [place], [place] [phone] Essential hypertension Social History Tobacco Use Types [...] documented as of this encounter Care Teams Associate Professor Of Mathematics Relationship Specialty Start Date End Date Aaliyah Roche MD [address] [place] [phone] PCP - General Family Medicine 07/03/19 documented as of this encounter
--- OUTSIDE RECORDS SUMMARY | 2025-01-13 08:16 | XMS_ITS | Referral Summary ---
Author Organization [facility] Address [address] [place] [address] Care Team Providers Care Sap Treasury Consultant Name Role Phone Sabra Lim Primary Care [...] Plan of Treatment Not on file Insurance [facility] JOSE G [id number] Care Teams Sap Treasury Consultant Relationship Specialty Start Date End Date Sabra Lim [address] [place] [address] PCP - General 09/04/20
--- OUTSIDE RECORDS SUMMARY | 2025-01-13 08:16 | XMS_ITS | Encounter Summary ---
Author Organization [employer] Address [address] [facility] [address] [place] [address] Care Team Providers Care Pouch Maker Name Role Phone Aaliyah Roche MD Primary Care Provide r Reason for Visit * Reason Comments Med Refill Encounter Details Date Type Department Care Team ([facility] st Contact Info) Description 12/18/2024 Refill [facility] MEDICINE [address] [place], [place] [phone] Aaliyah Roche MD [address] [place], [place] [phone] Essential hypertension Social History Tobacco Use Types [...] documented as of this encounter Care Teams Pouch Maker Relationship Specialty Start Date End Date Aaliyah Roche MD [address] [place] [phone] PCP - General Family Medicine 07/03/19 documented as of this encounter
--- OUTSIDE RECORDS SUMMARY | 2025-01-13 08:16 | XMS_ITS | Encounter Summary ---
Author Organization [employer] Address [address] [facility] [address] [place] [address] Care Team Providers Care Rn Integrated Name Role Phone Aaliyah Roche MD Primary Care Provide r Encounter Details Date Type Department Care Team ([facility] st Contact Info) Description 01/06/2023 Orders Only [facility] MED & PEDS [address] [place], [place] [phone] Alyssa Mackey LPN Social History Tobacco Use [...] on filedocumented in this encounter Care Teams Rn Integrated Relationship Specialty Start Date End Date Aaliyah Roche MD [address] [place] [address] [phone] PCP - General Family Medicine 07/03/19 documented as of this encounter
--- OUTSIDE RECORDS SUMMARY | 2025-01-13 08:16 | XMS_ITS | Encounter Summary ---
Author Organization [employer] Address [address] [address] 7[address] [place] [address] Care Team Providers Care Casino Cage Manager Name Role Phone Aaliyah Roche MD Primary Care Provide r Reason for Visit * Reason Comments Med Refill Encounter Details Date Type Department Care Team ([facility] st Contact Info) Description 10/21/2024 Refill [facility] MEDICINE [address] [place], [place] [phone] Aaliyah Roche MD [address] [place], [place] [phone] Dyslipidemia Social History Tobacco Use Types Packs/Day [...] documented as of this encounter Care Teams Casino Cage Manager Relationship Specialty Start Date End Date Aaliyah Roche MD [address] [place] [phone] PCP - General Family Medicine 07/03/19 documented as of this encounter
--- OUTSIDE RECORDS SUMMARY | 2025-01-13 08:16 | XMS_ITS | Clinical Summary ---
Author Organization [facility] Address [address] [place] [address] Care Team Providers Care Sheet Metal Worker Name Role Phone Sabra Lim Primary Care [...] (1 - 1-dose 75+ series) 2040 Insurance Swapsee Care Teams Sheet Metal Worker Relationship Specialty Start Date End Date Sabra Lim [address] [place] [address] [place] [address] PCP - General 09/04/20
--- OUTSIDE RECORDS SUMMARY | 2025-01-13 08:16 | XMS_ITS | Clinical Summary ---
Author Organization [facility] Address [address] [place] [address] Phone Care Team Providers Care Manager Sterile Processing Name Role Phone Aaliyah Roche MD Primary [...] (BMI) of 40.0 to 44.9 in adult (CMS/[facility] V24, [facility] V28) 06/11/2024 Obstructive sleep apnea 11/09/2020 Overview [...] Neg cardiac w/u and cta HH 04/2015 [facility] / nuclear stress done Encounters Date Type Department Care Team Description 12/19/2024 10:30 AM EDT Nutrition Bariatric Surgery - [address] [place] [address] Class 2 obesity [...] PROCEDURE: HISTORICAL BLADDER SURGERY ESOPHAGOGASTRODUODENOSCOPY 09/24/15 PROCEDURE: [place] ESOPHAGOGASTRODUODENOSCOPY TRANSORAL DIAGNOSTIC; COMMENT: Duodenitis, otherwise normal [...] Comments Brother 1 Brother 2 Alive HTN, [place] at 55 y o Brother 3 mi [...] 10:00 AM EDT Nutrition Bariatric Surgery - [place] [address] [phone] Katty Stewart, VALERY [address] [phone] 03/13/2025 2:15 PM EDT Office Visit Bariatric Surgery [address] [phone] Francesca Bermudez PA [address] [phone] 03/18/2025 10:15 AM EDT Consult Orthopedic Surgery [facility] [address] [phone] Venkata Mejia DPM [address] [address] Health Maintenance Due Date Last Done Comments [...] Procedure Name Priority Date/Time Associated Diagnosis Comments HM ANNUAL BMP BLOOD TEST Routine 03/24/2016 LIPID PANEL Routine 03/24/2016 HEMOGLOBIN A1C Routine 12/30/2015 HEPATITIS C SCREENING Routine 05/25/2013 HIV SCREENING Routine 05/25/2013 from Last 3 Months or Most Recently Relevant to Health Maintenance Results * Annual BMP Blood Test (03/24/2016) Pathologist [facility] Annual BMP Blood Test abstracted Result [facility] Provider HEALTH MAINTENANCE Final Result * (ABNORMAL) Lipid panel (03/24/2016) Pathologist [facility] LDL/HDL Ratio 5(A) 0 - 4 Triglycerides 257(A) 0 - 150 mg/dL Cholesterol 187 0 - 200 mg/dL HDL 38(A) >=40 mg/dL LDL Cholesterol 98 0 - 100 mg/dL Blood Venous blood specimen / Unknown Result [facility] Provider LAB BLOOD ORDERABLES Delisa l Result * Hemoglobin A1c (12/30/2015) [facility] Hemoglobin A1C 5.6 4.0 - 6.0 % Blood Venous blood specimen / Unknown Result [facility] Provider LAB BLOOD ORDERABLES Delisa l Result * HIV Screening (05/25/2013) Pathologist [facility] HIV Screening abstracted [facility] Provider HEALTH MAINTENANCE Final Result * Hepatitis C Screening (05/25/2013) Pathologist [facility] Hepatitis C Screening abstracted [facility] Provider HEALTH MAINTENANCE Final Result from Last 3 Months or Most Recently Relevant to Health Maintenance Insurance [address] [place] [address] [place] Care Teams Manager Sterile Processing Relationship Specialty Start Date End Date Aaliyah Roche MD [address] [place] [phone] PCP - General Internal Medicine 08/24/21
--- OUTSIDE RECORDS SUMMARY | 2025-01-13 08:17 | XMS_ITS | Encounter Summary ---
Author Organization [employer] Address [address] [facility] [address] [place] [address] Care Team Providers Care Surveyor Hydrographic Name Role Phone Aaliyah Roche MD Primary Care Provide r Reason for Visit * Reason Comments Med Refill Encounter Details Date Type Department Care Team (Late st Contact Info) Description 03/12/2023 Refill [facility] [address] [place], [place] [phone] Dominga Enrique MD [address] [place], [place] [phone] Dyslipidemia Social History Tobacco Use Types Packs/Day [...] hyperlipidemia documented in this encounter Care Teams Surveyor Hydrographic Relationship Specialty Start Date End Date Aaliyah Roche MD [address] [place], [place] [phone] PCP - General Family Medicine 07/03/19 documented as of this encounter
--- NOTE | 2025-01-13 08:19 | A.OFFVIS_ITS ---
Intake Visit Reasons: 1y/PSA Intake Note: Patient presents today for a 1 year follow-up Urology Meds:Alfuzosin, Sildenafil & Tadalafil Allergies to Antibiotic: No Known Allergies Blood Thinner:Aspirin PVR:0ml Monument Installer Required: No Accompanied by: Self / Same As Patient Allergies duloxetine Allergy (Severe, Verified 01/13/25 08:23) Nightmare baclofen [BACLOFEN] Allergy (Intermediate, Verified 01/13/25 08:23) RASH Medication List - Last Reconciled 01/13/25 by Pati Falcon MD albuterol sulfate 90 mcg/actuation (Ventolin HFA) 2 puffs inhalation Q6H alfuzosin ER 10 mg PO DAILY amlodipine 10 mg PO DAILY aspirin (Adult Aspirin Regimen) 81 mg PO DAILY atorvastatin 40 mg PO BEDTIME budesonide-formoterol 160-4.5 mcg/actuation (Symbicort) inhalation carvedilol (Coreg) 25 mg PO BID lansoprazole 30 mg PO BID lisinopril 20 mg PO QAM sucralfate (Carafate) 10 mL PO QID PRN tadalafil (Cialis) 5 mg PO DAILY HPI Comments Details: 01/13/2025--the patient is here for 1 year follow-up, PSA screening. Silvestre is a 59-year-old male who has been evaluated due to microscopic hematuria, erectile dysfunction, chronic testicular pain. The patient has chronic back pain, due to sciatica per patient. Workup for microscopic hematuria including imaging of urinary tract in office cystoscopy, 10/06/2023 was negative for urinary tract masses or calculi disease. The patient is prescribed Cialis 5 mg daily with Viagra 100 mg on demand, instructed to use no more than 2 times a week. He states he has not been taking the Cialis daily he did not refill the medication. He also complains of testicular pain on the right testicle that comes and goes. Examination today both testicles are nontender no scrotal or testicular swelling. In review of the chart we did an ultrasound September, which was within normal limits. The patient has chronic back pain with referred pain to his right hip. I discussed it may be part of the sequelae. I have advised he can use [id number]-dhh-fhikavj Motrin PRN. Plan will be to continue alfuzosin, daily Cialis and Viagra PRN follow-up in 1 year. Urine for cytology. Results: Labs-01/10/2025-PSA 2.0 ng/mL Urinalysis: 3+ blood 01/15/2024-- Silvestre is a 58-year-old male who has been evaluated due to microscopic hematuria, erectile dysfunction, chronic testicular pain. The patient has chronic back pain, due to sciatica per patient. Workup for microscopic hematuria including imaging of urinary tract in office cystoscopy, 10/06/2023 was negative for urinary tract masses or calculi disease. The patient is prescribed Cialis 5 mg daily with Viagra 100 mg on demand, instructed to use no more than 2 times a week. I have discussed scrotal ultrasound results- 10/25/2023 no testicular mass or signs of infection. Silvestre states he has not using the Cialis 5 mg daily and has not used the Viagra as yet. Discussed Motrin p.r.n. for testicular pain. Continue alfuzosin. Follow-up in 1 year PSA prior. 10/06/23--Silvestre is a 58-year-old male who presents today to the office for office cystoscopy. He ana maria initially evaluated on 07/12/23 as a new patient for an evaluation of BPH with nocturia. LV--07/12/2023--He presents today for an evaluation of BPH with nocturia. PMH- Hypertension, Obesity, back pain His AUA symptom score was 23. He complains of erectile dysfunction. The patient complains of daytime urinary frequency every 2 hours, nocturia 3x. feeling of incomplete bladder emptying. I have discussed avoiding dietary bladder irritants, including to cut back on caffeine usage. I have reviewed the US from 03/17/2023 noted that the kidneys were with in the normal limits. Results reviewed PSA next month ? 07/12/2023 ng/mL. Cialis 5 mg daily Add Viagra 100mg on demand, Continue alfusozin as prescribed. Scrotal US for right testicular pain 10/06/23--Cystoscopy findings: prostatic urethra bilobar enlargement, bulbous urethra WNL, no suspicious bladder lesions visualized CT imaging reviewed- 06/12/2023-no acute finding. The patient complains of right testicular pain - exam no testicular swelling or scrotal cellulitis or erythema [facility] Medical History Peripheral vascular disease Morbid obesity Sacroiliac joint dysfunction of right side Sacroiliitis HTN (hypertension) Descending thoracic aortic dissection Ascending aortic aneurysm Leg edema SOB (shortness of breath) Peptic ulcer disease Back pain Anxiety Hx of lipoma Constipation Esophagitis Sacroiliac joint pain Sacroiliitis Hypercholesteremia GERD (gastroesophageal reflux disease) Fatty liver VALERY (obstructive sleep apnea) Pulmonary hypertension Anemia Surgical History Status post excision of lipoma (~08/01/23) Hx of surgical procedure (06/19/23) Hx of repair of dissecting thoracic aortic aneurysm, Alexander type B Hx of colonoscopy History of esophagogastroduodenoscopy (EGD) History of carpal tunnel release of both wrists History of arthroscopy of both knees Hx of cholecystectomy Family History Father Depression Suicide Mother Diabetes Dementia Heart problem Sister Dementia, Onset Age: 73 Sister No problems noted. Brother No problems noted. Family/Other No problems noted. Social History Alcohol intake: former Patient Tobacco Use Status: Current someday Tobacco user Years Smoked: 30 +/- Review of Systems Const All systems reviewed & are unremarkable except as noted in HPI and below Reports no additional complaints Eyes Reports no additional complaints ENT Reports no additional complaints Card Reports no additional complaints Resp Reports no additional complaints GI Reports no additional complaints Reports as per HPI Musc Reports no additional complaints Skin/Breast Reports system reviewed and no additional complaints, except as documented Neuro Reports no additional complaints Psych Reports no additional complaints Endo Reports no additional complaints Saurav/Lymph Reports no additional complaints Aller/Immun Reports no additional complaints Office Procedures Post Void Residual Post Residual Void Post Void Residual (PVR): 0 [id number] Void Residual by ultrasound Results AMB Urinalysis, Automated UA Leukoctes 0 Mario/uL Last Edit by Vera Naik on 01/13/25 16:40 UA Nitrite Negative Last Edit by Vera Naik on 01/13/25 16:40 UA Urobilinogen 17 mg/dL Last Edit by Vera Naik on 01/13/25 16:40 UA Protein 0.3 mg/dL Last Edit by Vera Ovalletiz on 01/13/25 16:40 UA pH 6.0 Last Edit by Vera Ovalletiz on 01/13/25 16:40 UA Blood 200 Lele/uL Last Edit by Vera Ovalletiz on 01/13/25 16:40 UA Specific Mckee 1.030 Last Edit by Vera Ovalletiz on 01/13/25 16:40 UA Ketone Positive Last Edit by Vera Ovalletiz on 01/13/25 16:40 UA Bilirubin 35 mg/dL Last Edit by Vera Ovalletiz on 01/13/25 16:40 UA Glucose 0 mg/dL Last Edit by Vera Ovalletiz on 01/13/25 16:40 Assessment & Plan Assessment & Plan (1) Testicular pain, right: Code(s): N50.811 - Right testicular pain Category: Medical (2) Microscopic hematuria: Code(s): R31.29 - Other microscopic hematuria Category: Medical (3) BPH loc w urin obs/LUTS: Code(s): N40.1 - Benign prostatic hyperplasia with lower urinary tract symptoms Category: Medical (4) Proteinuria: Code(s): R80.9 - Proteinuria, unspecified Category: Medical (5) Screening PSA (prostate specific antigen): Code(s): Z12.5 - Encounter for screening for malignant neoplasm of prostate Category: Medical Plan Examination today both testicles are nontender no scrotal or testicular swelling. In review of the chart we did an ultrasound September, which was within normal limits. The patient has chronic back pain with referred pain to his right hip. I discussed it may be part of the sequelae. I have advised he can use dkif-mab-hyngvni Motrin PRN. Plan will be to continue alfuzosin, daily Cialis and Viagra PRN follow-up in 1 year. Urine for cytology. Results: Labs-01/10/2025-PSA 2.0 ng/mL Orders: Orders PSA,Total (Free>4and<10) 11 Months Z12.5 - Encounter for screening for malignant neoplasm of prostate AMB Urinalysis Automated Today Z13.9 - Encounter for screening, unspecified Urine Cytology Today R31.29 - Other microscopic hematuria Medications: Refilled tadalafil (Cialis) [id number] [facility] [id number] Member [id number] 5 mg PO DAILY 30 tabs 5RF alfuzosin ER administer after the same meal each day 10 mg PO DAILY 90 tabs 3RF Patient Instructions: The patient had an opportunity to ask questions regarding treatment plan. The patient expressed understanding and agreement with the above treatment plan. The patient is aware they should contact our office by phone for worsening of their current condition or the appearance of new symptoms. Compliance is encouraged with any medications and followup testing that is ordered. It is a privilege to be allowed the opportunity to participate in the urologic care of your patient. If you have any questions or concerns regarding treatment for the above conditions please do not hesitate to contact me. The office telephone contact is [phone]. This note is constructed in part using voice recognition software. While every effort has been made to ensure accuracy press cleaner errors may have been included. Yours sincerely, Pati Falcon MD Coding Level of Care Code Est Pt Level 4 (45525) Complex EM visit Add On G2211 Diagnoses Testicular pain, right N50.811 Microscopic hematuria R31.29 BPH loc w urin obs/LUTS N40.1 Proteinuria R80.9 Screening PSA (prostate specific antigen) Z12.5 CPT Codes Post Residual Void - PVR CPT Code: 70157-Byor Void Residual by ultrasound ([id number])
== END 2025-01-13 09:11 | disposition home or self-care (01) ==
LOC: HO.HUSH 08:12
PROVIDERS: PCP Internal Medicine; Visit Provider Urology
DX: Z13.9 Encounter for screening, unspecified (principal)

== ENCOUNTER 2025-01-13 08:12 | Outpatient (REF) | payer MEDICAID, SELFPAY ==
--- OUTSIDE RECORDS SUMMARY | 2025-01-13 12:26 | XMS_ITS | Referral Summary ---
Author Organization [facility] Address [address] [place] [address] Care Team Providers Care Right Of Way Man Name Role Phone Sabra Lim Primary Care [...] Plan of Treatment Not on file Insurance [facility] JOSE G [id number] Care Teams Right Of Way Man Relationship Specialty Start Date End Date Sabra Lim [address] [place] [address] PCP - General 09/04/20
--- OUTSIDE RECORDS SUMMARY | 2025-01-13 12:26 | XMS_ITS | Clinical Summary ---
Author Organization [facility] Address [address] [place] [address] Phone Care Team Providers Care Drilling Inspector Name Role Phone Aaliyah Roche MD Primary [...] (BMI) of 40.0 to 44.9 in adult (CMS/[facility] V24, [facility] V28) 06/11/2024 Obstructive sleep apnea [...] Neg cardiac w/u and cta HH 04/2015 [facility] / nuclear stress done Encounters Date Type Department Care Team Description 12/19/2024 10:30 AM EDT Nutrition Bariatric Surgery - [address] [place] [address] Class 2 [...] PROCEDURE: HISTORICAL BLADDER SURGERY ESOPHAGOGASTRODUODENOSCOPY 09/24/15 PROCEDURE: [place] ESOPHAGOGASTRODUODENOSCOPY TRANSORAL DIAGNOSTIC; COMMENT: Duodenitis, otherwise normal [...] Comments Brother 1 Brother 2 Alive HTN, [place] at 55 y o Brother 3 mi [...] 10:00 AM EDT Nutrition Bariatric Surgery - [place] [address] [phone] Katty Stewart, VALERY [address] [phone] 03/13/2025 2:15 PM EDT Office Visit Bariatric Surgery [address] [phone] Francesca Bermudez PA [address] [phone] 03/18/2025 10:15 AM EDT Consult Orthopedic Surgery [facility] [address] [phone] Venkata Mejia DPM [address] [phone] Health Maintenance Due Date Last Done Comments [...] * Annual BMP Blood Test (03/24/2016) Pathologist [facility] Annual BMP Blood Test abstracted Result [facility] Provider HEALTH MAINTENANCE Final Result * (ABNORMAL) Lipid panel (03/24/2016) Pathologist [facility] LDL/HDL Ratio 5(A) 0 - 4 Triglycerides 257(A) 0 - 150 mg/dL Cholesterol 187 0 - 200 mg/dL HDL 38(A) >=40 mg/dL LDL Cholesterol 98 0 - 100 mg/dL Blood Venous blood specimen / Unknown Result [facility] Provider LAB BLOOD ORDERABLES Delisa l Result * Hemoglobin A1c (12/30/2015) [facility] Hemoglobin A1C 5.6 4.0 - 6.0 % Blood Venous blood specimen / Unknown Result [facility] Provider LAB BLOOD ORDERABLES Delisa l Result * HIV Screening (05/25/2013) Pathologist [facility] HIV Screening abstracted [facility] Provider HEALTH MAINTENANCE Final Result * Hepatitis C Screening (05/25/2013) Pathologist [facility] Hepatitis C Screening abstracted [facility] Provider HEALTH MAINTENANCE Final Result from Last 3 Months or Most Recently Relevant to Health Maintenance Insurance [address] [place] [address] [place]ICA[place] - [place] Care Teams Drilling Inspector Relationship Specialty Start Date End Date Aaliyah Roche MD [address] [place] [phone] PCP - General Internal Medicine 08/24/21
--- OUTSIDE RECORDS SUMMARY | 2025-01-13 12:26 | XMS_ITS | Clinical Summary ---
Author Organization [facility] Address [address] [place] [address] Care Team Providers Care Rebeamer Name Role Phone Sabra Lim Primary Care Provider [phone] Allergies Active Allergy Reactions Criticality Noted Date [...] (1 - 1-dose 75+ series) 2040 Insurance Personeta Care Teams Rebeamer Relationship Specialty Start Date End Date Sabra Lim [address] [place] [address] [place] [address] PCP - General 09/04/20
[2025-01-13 17:04] LABS: Urine Cytology See Pathology rpt
== END 2025-01-13 08:13 | disposition home or self-care (01) ==
LOC: HO.LAB 08:12
PROVIDERS: PCP Internal Medicine; Visit Provider Urology
DX: R31.29 Other microscopic hematuria (principal); N40.1 Benign prostatic hyperplasia with lower urinary tract symptoms; R35.0 Frequency of micturition; R35.1 Nocturia; N50.811 Right testicular pain
CPT/HCPCS: 51798; 81003; 88112; 99212

== ENCOUNTER 2025-01-16 10:51 | Outpatient (AMB) | payer MEDICAID, SELFPAY ==
--- NOTE | 2025-01-16 10:59 | A.OFFVIS_ITS ---
Vital Signs 01/16/25 11:02 Height 5 ft 10 in Weight 265 lb BMI 38.0 BP 130/66 Blood Pressure Location Rt brachial Position Sitting Pulse 63 Pulse Source Pulse Oximeter Pulse Oximetry (%) 98 Oxygen Delivery Method Room Air Intake Visit Reasons: s/p right hip injection Intake Note: Pain today 03/06 It Compliance Manager Required: No Accompanied by: Self / Same As Patient Allergies duloxetine Allergy (Severe, Verified 01/16/25 11:03) Nightmare baclofen [BACLOFEN] Allergy (Intermediate, Verified 01/16/25 11:03) RASH HPI Comments Details: Patient presents today to assess response to right hip steroid injection under fluoroscopy on 12/19/[address] Doyle. He continues to endorse right-sided hip and sacroiliac joint pain. The patient's medical history includes moderate bilateral hip osteoarthritis, which is slightly more on the left side. While initial efforts at pain relief included a hip injection, this intervention did not provide lasting relief. Patient also received a right sacroiliac (SI) joint injection in [address] Reaves yielding a 70% symptomatic improvement for 45 days. The patient's chronic condition predominantly affects his right side, with pain radiating from the right low back into right buttock and to the groin. Given his significant pain, particularly involving the right hip and back without corresponding left-sided symptoms, MRI findings from October indicate arthritis changes and foraminal stenosis primarily at L3-L4 and L5-S1, which do not entirely match the clinical picture. An SI joint origin is considered more congruent with his ongoing symptoms according to his recent evaluations and his Urology consult indicates no additional contributing abnormalities. - Onset and Duration: Persistent chronic pain with right-sided hip focus - Quality: Achy, sometimes sharp, throbbing, heavy, sore - Primary Location: Right low back radiating to the right groin - Aggravating Factors: Walking, changing positions, prolonged sitting, persistent with daily activities - Relieving Factors: Past SI joint injection provided temporary relief - Interference: Affects mobility and daily function - Radiation: Pain radiates from the hip to the groin, and occasional calf involvement - Affect: Pain impacts the patient?s daily functioning; dealing with frustration due to persistent symptoms - Analgesia: Currently relies on [id number] Motrin; past use of tramadol was reported to be beneficial - Adverse Effects: None reported from current analgesia - Activities of Daily Living: Pain significantly hampers physical activities; goal involves active pain management to improve quality of life - Aberrant Drug Related Behaviors: No evidence of medication misuse Past Procedures: 12/19/24: Right hip steroid injection with fluoroscopy-- 05/18/23: Right L3 Sprint removal-80% pain relief (setting at 80 prior to removal) 03/22/23: Right L3 medial branch Sprint trial-80% at 80 with paresthesia 12/21/22: Bilateral Diagnostic L3-L4-L5 MBB-90% pain relief for 8 hours, ongoing 60% pain relief 08/24/22: Right Anterior Cutaneous Nerve Block with steroids-80% ongoing pain relief 06/01/21: Diagnostic Right SIJ injection-good results PRIOR: Patient is a pleasant 57 years old male who presents today for evaluation for right upper quadrant pain and chronic upper and lower back pain. He was last seen in our office by Dr. Reaves on 06/01/21 for right SIJ diagnostic injection with no follow ups. Patient reports right sided abdominal pain for 3 months unrelated to PO intake or fasting and radiates towards the mid back. He reports occasional radiation of his back pain into his right lower extremity posteriorly without numbness or tingling. 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 Lopez?s operative notes. His complex medical history is noted for descending thoracic aortic aneurysm status post endovascular repair and cholecystectomy, esophagitis, GERD, peptic ulcer disease, fatty liver and morbid obesity. Patient is followed by Dr. Weber at [facility] and Dr. Marino at [facility]. Patient describes pain as intermittent stabbing, spasming and lancinating pain worse in the morning upon awakening rated at 8/10 on average and least severe pain in the afternoon rated at 5/10. He also reports RUQ pain wakes him up at night with hot and burning sensations. Denies diaphoresis at night or during the day. Pain increases with movements, weather changes, heat/cold applications, prolonged walking, bending, lifting and twisting. Patient takes flexeril 10 mg tid prn, Ibuprofen 800 mg bid prn and Tylenol to manage his symptoms. Patient also takes daily aspirin 81 mg. Patient reports Lidocaine patches were denied by his insurance. Patient reports his GI medications were adjusted s/p EGD and he notes partial symptom relief. He recently completed repeat abdominal US on 07/15/22 which showed generalized increase in hepatic echotexture, consistent with fatty infiltration or hepatocellular disease. Characteristic pericholecystic sparing favors fatty infiltration. No focal hepatic mass or intrahepatic biliary dilatation is seen. Technically limited ultrasound examination, in particular of the pancreas. Patient denies any fever, malaise, unintentional weight loss, dizziness, chest pain, headache, nausea, vomiting, bowel pattern changes, bloody stools, hematuria, painful urination, UTI, kidney stones, leg weakness, bowel or bladder incontinence or saddle anesthesia. Patient also reports occasional chest pain, fatigue, shortness of breath and dyspnea after walking for 10 minutes. He has follow-up with cardiology Dr. Weber and Dr. Marino in 08/2022. Goal blood pressure less than 130/[address] Weber. Patient reports his home BP readings are on average 140-170's/70-80's. Patient reports he will follow up with Dr. Weber about symptomatic high BP readings. PRIOR 04/15/21 Dr. Reaves: Mr. Silvestre Villalobos is very pleasant 56 years old gentleman who presents in my office after a long time of absence. He was treated for lower back pain back in September of 2019. He was complaining on pain in the back with radiation into the right lower extremity. His pain started about 3 years ago. At that time we performed right sacroiliac joint injection with very good results once however the injection was technically difficult with almost no sacroiliac joint space available to penetrate despite very significant efforts to do so. And yet he reported on periarticular joint injection 70% pain relieve which lasted about 45 days. Of where repeated sacroiliac joint injection however patient was lost to follow-up due to COVID-19 infection widespread. Since then he was examined for multiple cardiac problems including thoracic I aortic aneurysm abdominal aortic aneurysm and peripheral vascular disease. He also has some cardiac problems, however he is not on any blood thinners. He was treated by Dr. Marino of 4 dissecting descending thoracic aortic aneurysm. He reports that after this procedure he has severe pain in the right upper abdomen and right costal margin with radiation of this pain to the suprascapular area on the right. He sometimes connect this pain with the pain on the right side in the projection of the right sacroiliac joint. He reports his pain 5/10 in severity he is taking opioids 5 mg oxycodone t.i.d. which is prescribed by primary care doctor. He reports that he cannot sleep normally cannot do activities of daily living he can take care of himself but he cannot function normally he is on sick leave from his job. He reports that heat application and cold applications both aggravates his pain. He reports his pain in terms of tissue damage is tugging, pulling, ranging, dull, sore, hurting, aching, heavy, spreading, radiating, piercing, tight, squeezing, tearing. His past medical history significant for chest pain in angina which was related to descending thoracic aortic aneurysm dissection. He also suffers from hypertension fatigue shortness of breath he has arthritis and he had knee arthroscopies done in the past. He had gallbladder surgery so his gallbladder is absent then we cannot consider pain in right upper quadrant as the gal lbladder pain. As it is described above he had stenting of descending thoracic aortic aneurysm. It was done in September of 2020. [facility] Medical History Peripheral vascular disease Morbid obesity Sacroiliac joint dysfunction of right side Sacroiliitis HTN (hypertension) Descending thoracic aortic dissection Ascending aortic aneurysm Leg edema SOB (shortness of breath) Peptic ulcer disease Back pain Anxiety Hx of lipoma Constipation Esophagitis Sacroiliac joint pain Sacroiliitis Hypercholesteremia GERD (gastroesophageal reflux disease) Fatty liver VALERY (obstructive sleep apnea) Pulmonary hypertension Anemia Surgical History Status post excision of lipoma (~08/01/23) Hx of surgical procedure (06/19/23) Hx of repair of dissecting thoracic aortic aneurysm, Alexander type B Hx of colonoscopy History of esophagogastroduodenoscopy (EGD) History of carpal tunnel release of both wrists History of arthroscopy of both knees Hx of cholecystectomy Family History Father Depression Suicide Mother Diabetes Dementia Heart problem Sister Dementia, Onset Age: 73 Sister No problems noted. Brother No problems noted. Family/Other No problems noted. Social History (Reviewed 01/16/25 @ 20:35 by BRIANDA Chou Alcohol intake: former Patient Tobacco Use Status: Current someday Tobacco user Years Smoked: 30 +/- Review of Systems Const All systems reviewed & are unremarkable except as noted in HPI and below Physical Exam Vital Signs: Last Vital Signs Pulse 63 01/16/25 11:02 BP 130/66 01/16/25 11:02 Pulse Ox 98 01/16/25 11:02 Oxygen Delivery Method Room Air 01/16/25 11:02 BMI result Body Mass Index 38.0 General: Appears afebrile. Alert and oriented. Mood and affect appropriate. Follows and participates in conversation appropriately. Respiratory effort is unlabored. No cough. Able to transition from sit to stand unassisted. Ambulates with bilaterally normal heel strike and toe off. General: Yes no CVA tenderness Back/Spine/Pelvis Other: Patient is able to walk and stand on heels and tip toes with mild difficulty on the right otherwise demonstrating good motor tone. Mild limping. Lumbar flexion and extension reproduces mild pain. Demonstrates 5/5 left and 4/5 right strength of quadriceps bilaterally as well as flexion/dorsiflexion of bilateral feet against resistance. 2+ pedal pulses bilaterally. Straight leg rise with dorsiflexion negative bilaterally. +1 patellar and achilles reflexes bilaterally. Facet loading test positive bilaterally. Shane sign, Tony?s, Gaenslen, Pelvic compression and Stinchfield tests are positive on the right. Mild groin pain with I/E hip rotations on the right, no pain on the left. Valsalva maneuver negative. Back: no CVA tenderness Cervical Spine: cervical ROM normal and No Cervical spine tenderness Thoracic/Lumbar Spine: thoracic and lumbar spine normal to inspection, Lasegue's sign negative, straight leg raise negative bilaterally, pain with thoraco- lumbar ROM, thoraco-lumbar ROM limited, No thoracic spinal tenderness and No lumbar spinal tenderness Pelvis: buttock tenderness on the right Sacroiliac joints: on the right tender to palpation and on the left nontender Extrem General: Yes capillary refill normal, Yes no clubbing, cyanosis or edema and Yes no calf tenderness Results Reviewed Results Reviewed: MR LUMBAR SPINE WITHOUT CONTRAST 11/05/24 at [facility] INDICATION: Evaluate spinal stenosis vs nerve impingement, lumbar pain w radiculopathy affecting lower extremity TECHNIQUE: MRI lumbar spine was performed according to routine protocol with multiplanar fast spin echo imaging and sagittal fat-suppressed T2 imaging. COMPARISON: MRI lumbar spine of 10/24/2023 FINDINGS: Alignment and Curvature: Normal Conus and Cauda Equina: The conus terminates at the L1 level and demonstrates no signal abnormality. Vertebral Body Heights: No significant height loss. Marrow Signal: No significant abnormality. Discs: Mild multilevel degenerative disc desiccation. T12-L1: There is no significant canal or foraminal stenosis. L1-L2: There is no significant canal or foraminal stenosis. L2-L3: There is no significant canal or foraminal stenosis. L3-L4: Shallow disc bulge, facet arthropathy and ligamentum flavum thickening. No significant central canal stenosis. Narrowing of bilateral subarticular zones, possibly contacting the descending nerve roots. Mild to moderate left and mild right foraminal stenosis. Findings are interval slightly progressed since prior exam. L4-L5: No significant spinal canal stenosis. Bilateral facet arthropathy. Mild bilateral foraminal stenosis. Findings are interval slightly progressed since prior exam. L5-S1: No significant spinal canal stenosis. Bilateral facet arthropathy. Moderate left foraminal stenosis. No significant right foraminal stenosis. Narrowing of bilateral subarticular zones, possibly contacting the descending nerve roots without nerve impingement. Findings are similar to prior exam. No abnormality is identified at the visualized portion of the sacrum. Small T2 hyperintense structure in the left kidney which may represent cysts, similar to prior exam. IMPRESSION: Interval slightly progressed degenerative changes of the lumbar spine compared to MRI of 10/24/2023. Findings are notable for moderate left foraminal stenosis at L5-S1, and mild to moderate left foraminal stenosis at L3-L4. No significant spinal canal stenosis in the lumbar spine. XR hip RT min 2V 11/16/24 2 view left hip 2 view right hip Comparison: CT/SR - CT ABDOMEN PELVIS W IV CON - 09/14/24 00:30 EST Findings: No acute fracture or dislocation. [id number] degenerative changes of the bilateral hip joints, left slightly greater than right. Degenerative changes at the pubic symphysis joint. The partially imaged sacroiliac joints appear relatively maintained. The soft tissues are unremarkable. IMPRESSION: No acute findings. [id number] degenerative changes of the bilateral hip joints, left slightly greater than right. Assessment & Plan Assessment & Plan (1) Sacroiliac joint dysfunction of right side: Code(s): M53.3 - Sacrococcygeal disorders, not elsewhere classified Category: Medical (2) Lumbar spondylosis: Code(s): M47.816 - Spondylosis without myelopathy or radiculopathy, lumbar region Category: Medical (3) Chronic right SI joint pain: Code(s): M53.3 - Sacrococcygeal disorders, not elsewhere classified; G89.29 - Other chronic pain Category: Medical (4) Degenerative joint disease of right hip: Code(s): M16.11 - Unilateral primary osteoarthritis, right hip Category: Medical Qualifiers: Osteoarthritis type: primary Qualified Code(s): M16.11 - Unilateral primary osteoarthritis, right hip Plan We will administer Right therapeutic SI joint injection with corticosteroids with local and fluoroscopy to address the patient's sacroiliac joint dysfunction, expecting considerable pain relief to last approximately 45 days or more, based on prior outcomes. Expectations, risks and benefits were reviewed. Patient is aware he will be contacted to schedule this procedure. Pharmacological support with non-steroidal anti-inflammatory drugs will continue, complemented by weight management strategies given the patient's sleep apnea. The patient has transitioned from extensive to moderate weight aggression and is encouraged to pursue further lifestyle modifications. Short script Tramadol will be prescribed strictly as a temporarily additive measure for severe pain while awaiting injection, with guidance to avoid alcohol and exercise caution performing activities requiring alertness. Narcan provided with opioid script. Further interventions and diagnostic assessment will be tailored based on javid tment response for conservative management of hip osteoarthritis and potential for Orthopedic consults. All questions and concerns have been answered and patient agreed with the plan. Follow up after injection and sooner as needed. Patient was informed and verbally consented to the use of an ambient scribe for clinic note documentation during this visit. Medications: New tramadol 50 mg PO BID 15 days PRN 30 tabs 0RF pain (scale score 7-10) G89.29 - Other chronic pain, M16.11 - Unilateral primary osteoarthritis, right hip, M47.816 - Spondylosis without myelopathy or radiculopathy, lumbar region, M53.3 - Sacrococcygeal disorders, not elsewhere classified naloxone 4 mg/actuation (Narcan) spray 1 dose into ONE nostril; alternate nostrils w each dose until help arrives 4 mg intranasal Q2M PRN 2 ea 0RF opioid overdose Coding Level of Care Code Est Pt Level 4 (99667) Complex EM visit Add On G2211 Diagnoses Sacroiliac joint dysfunction of right side M53.3 Lumbar spondylosis M47.816 Chronic right SI joint pain M53.3; G89.29 Primary osteoarthritis of right hip M16.11 Osteoarthritis type: primary
[2025-01-16 11:02] VITALS: BP 130/66; PULSE 63; O2SAT 98; BMI 38.0
--- OUTSIDE RECORDS SUMMARY | 2025-01-16 11:34 | XMS_ITS | Clinical Summary ---
Author Organization [facility] Address [address] [place] [address] Care Team Providers Care Retail Sales Associate Name Role Phone Sabra Lmi Primary Care Provider Allergies Active Allergy Reactions [...] (1 - 1-dose 75+ series) 2040 Insurance [employer] Care Teams Retail Sales Associate Relationship Specialty Start Date End Date Sabra Lim [address] [place] [address] [place] [id number] PCP - General 09/04/20
--- OUTSIDE RECORDS SUMMARY | 2025-01-16 11:34 | XMS_ITS | Encounter Summary ---
Author Organization [facility] Address [address] [place] [address] Care Team Providers Care Immigration Case Worker Name Role Phone Jung Almeida MD Primary Care Provider [phone] Aaliyah Ann MD Primary Care Provide r Unavailable Encounter Details Date Type Department Care Team Description 03/22/2018 Road Mixer Operator Report Medical Records [address] [place] [address] Juice Brumfield MD Social History Tobacco Use Types Packs/Day Years Used Date Smoking Tobacco: Former Cigarettes 0.5 0 1977 - 06/28/2015 Smokeless Tobacco: Never Alcohol Use Standard Drinks/Week Comments Yes 0 (1 standard drink = 0.6 oz pur e alcohol) 5-6 beers per mo Sex Assigned at Date Recorded Not on file Job Start Date Occupation Industry Not on file Not on file Not on file documented as of this encounter Plan of Treatment Not on file documented as of this encounter Visit Diagnoses Not on filedocumented in this encounter Care Teams Immigration Case Worker Relationship Specialty Start Date End Date Jung Almeida MD [address] [place], [place] [id number] PCP - General Internal Medicine 09/10/15 08/23/21 Aaliyah Ann MD [address] [place] [id number] PCP - General Internal Medicine 08/24/21 documented as of this encounter
--- OUTSIDE RECORDS SUMMARY | 2025-01-16 11:34 | XMS_ITS | Encounter Summary ---
Author Organization [facility] Address [address] [place] [address] Care Team Providers Care It Professional Name Role Phone Name, Handy ALCANTAR Primary Care Provider Jung Nur MD Primary Care Provider [phone] Aaliyah Ann MD Primary Care Provide r Unavailable Encounter Details Date Type Department Care Team Description 03/17/2015 Turbine Mechanic Report Medical Records [address] [place] [id number] Ruel Carpenter PA-C Social History Tobacco Use Types Packs/Day Years Used Date Smoking Tobacco: Former Cigarettes 0.5 Smokeless Tobacco: Never Comments:quit 2 months ago Alcohol Use Standard Drinks/Week Comments Yes 0 (1 standard drink = 0.6 oz pur e alcohol) rarely Sex Assigned at Date Recorded Not on file Job Start Date Occupation Industry Not on file Not on file Not on file documented as of this encounter Plan of Treatment Not on file documented as of this encounter Visit Diagnoses Not on filedocumented in this encounter Care Teams It Professional Relationship Specialty Start Date End Date Name, MD Handy PCP - General 08/11/09 09/09/15 Jung Almeida MD [address] [place] [id number] PCP - General Internal Medicine 09/10/15 08/23/21 Aaliyah Ann MD [address] [place] [id number] PCP - General Internal Medicine 08/24/21 documented as of this encounter
--- OUTSIDE RECORDS SUMMARY | 2025-01-16 11:34 | XMS_ITS | Encounter Summary ---
Author Organization [facility] Address [address] [place] [address] Care Team Providers Care Gum Worker Name Role Phone Name, Handy ALCANTAR Primary Care Provider Unavailabl e Name, Handy ALCANTAR Primary Care Provider Unavailabl e Jung Almeida MD Primary Care Provider [phone] Aaliyha Ann MD Primary Care Provide r Unavailable Encounter Details Date Type Department Care Team Description 03/10/2005 Orders Only Medical [address] [place] [address] Timbo Eastman MD OTHER MALAISE AND FATIGUE (Primary Dx) Social History Tobacco Use Types Packs/Day Years Used Date Smoking Tobacco: Never Assessed Sex Assigned at Date Recorded Not on file Job Start Date Occupation Industry Not on file Not on file Not on file documented as of this encounter Plan of Treatment Scheduled Orders Name Type Priority Associated Diagnoses Orde r Schedule VENIPUNCTURE Lab Routine Other Malaise And Fatigue Ordered: 03/10/2005 documented as of this encounter Procedures Procedure Name Priority Date/Time Associated Diagnosis Comments CBC WITHOUT DIFF Routine 03/10/2005 3:25 PM EDT Other Malaise And Fatigue TSH Routine 03/10/2005 3:25 PM EDT Other Malaise And Fatigue CHG LIPID PANEL Routine 03/10/2005 3:25 PM EDT Other Malaise And Fatigue CHG COMPREHENSIVE METABOLIC PANEL Routine 03/10/2005 3:25 PM EDT Other Malaise And Fatigue documented in this encounter Results * TSH (03/10/2005 3:25 PM EDT) TSH 1.13 0.40 - 4.00 uIU/ml [facility] 03/10/2005 3:25 PM EDT 03/10/2005 3:27 PM EDT Timbo Eastman MD LAB Performing Organization Address [facility] Co de Phone Number [facility] * (ABNORMAL) CBC WITHOUT DIFF (03/10/2005 3:25 PM EDT) WHITE BLOOD COUNT 12.5(H) 4.8 - 10.8 x10-3 [facility] RED BLOOD COUNT 5.0 4.5 - 5.5 x10-6 [facility] Hemoglobin 14.7 13.0 - 17.0 g/dL [facility] Hematocrit 43.1 40 - 51 % [facility] MEAN CORPUSCULAR VOLUME 86.5 79 - 98 fl [facility] MEAN CORPUSCULAR HEMOGLOBIN 29.5 27 - 32 pg [facility] MEAN CORPUSCULAR HGB CONC 34.1 32 - 37 g/dl [facility] RED CELL DISTRIBUTION WIDTH 12.7 11 - 15 % [facility] PLT COUNT 285 130 - 400 x10-3 [facility] 03/10/2005 3:25 PM EDT 03/10/2005 3:27 PM EDT Timbo Eastman MD LAB Performing Organization Address [facility] de Phone Number [facility] * (ABNORMAL) LIPID PROFILE (03/10/2005 3:25 PM EDT) Cholesterol 242(H) 0 - 200 mg/dL [facility] TRIGLYCERIDES 427(H) 0 - 150 mg/dL [facility] HDL CHOLESTEROL 33(L) >40 mg/dL [facility] LDL CALCULATED 124(H) 0 - 100 mg/dL [facility] TC-HDLC RATIO 7.3(H) 0 - 4.4 mg/dL [facility] 03/10/2005 3:25 PM EDT 03/10/2005 3:27 PM EDT Timbo Eastman MD LAB [facility] * COMPREHENSIVE METABOLIC PANEL (03/10/2005 3:25 PM EDT) GLUCOSE 81 70 - 110 mg/dL [facility] Blood Urea Nitrogen 15 5 - 25 mg/dL [facility] creatinine 1.1 0.7 - 1.5 mg/dL [facility] BUN/CREATININE RATIO 13.6 6.0 - 20.0 G/dL [facility] Sodium 140 133 - 145 mEq/L [facility] Potassium 4.5 3.5 - 5.2 mEq/L [facility] Chloride 103 96 - 108 mEq/L [facility] CARBON DIOXIDE (CO2) 28.6 21.0 - 32.0 mEq/L [facility] CALCIUM 9.5 8.5 - 10.5 mg/dL [facility] TOTAL PROTEIN (TP) 7.4 6.0 - 8.0 G/dL [facility] Albumin 4.4 3.2 - 5.6 G/dL [facility] GLOBULIN 3.0 1.9 - 4.4 G/dL [facility] ALBUMIN/GLOBULI N RATIO 1.5 1.1 - 2.3 [facility] BILIRUBIN TOTAL 0.3 0.0 - 1.4 mg/dL [facility] AST (SGOT) 24 10 - 42 U/L [facility] ALT (SGPT) 31 10 - 60 U/L [facility] Alk Phos 65 42 - 121 U/L [facility] 03/10/2005 3:25 PM EDT 03/10/2005 3:27 PM EDT Timbo Eastman MD LAB [facility] documented in this encounter Visit Diagnoses Diagnosis Other malaise and fatigue- Primary documented in this encounter Care Teams Gum Worker Relationship Specialty Start Date End Date Name, MD Handy PCP - General 08/11/09 09/09/15 Name, MD Handy PCP - General 03/10/05 08/10/09 Jung Almeida MD [address] [place] [address] PCP - General Internal Medicine 09/10/15 08/23/21 Aaliyah Ann MD [address] [place] [address]35 PCP - General Internal Medicine 08/24/21 documented as of this encounter
--- OUTSIDE RECORDS SUMMARY | 2025-01-16 11:34 | XMS_ITS | Encounter Summary ---
Author Organization [facility] Address [address] [place] [address] Care Team Providers Care Pepper Cutter Name Role Phone Name, Handy ALCANTAR Primary Care Provider Jung Nur MD Primary Care Provider [phone] Aaliyah Ann MD Primary Care Provide r Unavailable Encounter Details Date Type Department Care Team Description 06/16/2015 Industrial Methods Consultant Report Medical Records [address] [place] [address] Abstract, Provider Social History Tobacco Use Types Packs/Day Years [...] on filedocumented in this encounter Care Teams Pepper Cutter Relationship Specialty Start Date End Date Name, MD Handy PCP - General 08/11/09 09/09/15 Jung Almeida MD [address] [place] [address] PCP - General Internal Medicine 09/10/15 08/23/21 Aaliyah Ann MD [address] [place] [address] PCP - General Internal Medicine 08/24/21 documented as of this encounter
--- OUTSIDE RECORDS SUMMARY | 2025-01-16 11:34 | XMS_ITS | Clinical Summary ---
Author Organization 175 [facility] Address [address] [place] [address] Phone Care Team Providers Care Car Rental Agency Manager Name Role Phone Aaliyah Roche MD [...] (BMI) of 40.0 to 44.9 in adult (CMS/[facility] V24, [facility] V28) 06/11/2024 Obstructive sleep apnea 11/09/2020 Overview [...] Neg cardiac w/u and cta HH 04/2015 [facility] / nuclear stress done Encounters Date Type Department Care Team Description 12/19/2024 10:30 AM EDT Nutrition Bariatric Surgery - [address] [place] [address] Class 2 [...] PROCEDURE: HISTORICAL BLADDER SURGERY ESOPHAGOGASTRODUODENOSCOPY 09/24/15 PROCEDURE: [place] ESOPHAGOGASTRODUODENOSCOPY TRANSORAL DIAGNOSTIC; COMMENT: Duodenitis, otherwise normal [...] Comments Brother 1 Brother 2 Alive HTN, [place] at 55 y o Brother 3 mi [...] 10:00 AM EDT Nutrition Bariatric Surgery - [place] [address] [phone] Katty Stewart, VALERY [address] [phone] 03/13/2025 2:15 PM EDT Office Visit Bariatric Surgery [address] [phone] Francesca Bermudez PA [address] [phone] 03/18/2025 10:15 AM EDT Consult Orthopedic Surgery [facility] [address] [phone] Venkata Mejia DPM [address] [phone] Health Maintenance Due Date Last Done Comments [...] * Annual BMP Blood Test (03/24/2016) Pathologist [facility] Annual BMP Blood Test abstracted Result [facility] Provider HEALTH MAINTENANCE Final Result * (ABNORMAL) Lipid panel (03/24/2016) Pathologist [facility] LDL/HDL Ratio 5(A) 0 - 4 Triglycerides 257(A) 0 - 150 mg/dL Cholesterol 187 0 - 200 mg/dL HDL 38(A) >=40 mg/dL LDL Cholesterol 98 0 - 100 mg/dL Blood Venous blood specimen / Unknown Result [facility] Provider LAB BLOOD ORDERABLES Delisa l Result * Hemoglobin A1c (12/30/2015) [facility] Hemoglobin A1C 5.6 4.0 - 6.0 % Blood Venous blood specimen / Unknown Result [facility] Provider LAB BLOOD ORDERABLES Delisa l Result * HIV Screening (05/25/2013) Pathologist [facility] HIV Screening abstracted [facility] Provider HEALTH MAINTENANCE Final Result * Hepatitis C Screening (05/25/2013) Pathologist [facility] Hepatitis C Screening abstracted [facility] Provider HEALTH MAINTENANCE Final Result from Last 3 Months or Most Recently Relevant to Health Maintenance Insurance [address] [place] [address] [place] Care Teams Car Rental Agency Manager Relationship Specialty Start Date End Date Aaliyah Roche MD [address] [place] [phone] PCP - General Internal Medicine 08/24/21
--- OUTSIDE RECORDS SUMMARY | 2025-01-16 11:34 | XMS_ITS | Encounter Summary ---
Author Organization [facility] Address [address] [place] [address] Care Team Providers Care Artist Blacksmith Name Role Phone Jung Almeida MD Primary Care Provider Aaliyah Ann MD Primary Care Provide r Unavailable Encounter Details Date Type Department Care Team Description 02/22/2016 Safety Lamp Keeper Report Medical Records [address] [place] [address] Juice Brumfield MD Social History Tobacco Use [...] on filedocumented in this encounter Care Teams Artist Blacksmith Relationship Specialty Start Date End Date Jung Almeida MD [address] [place], [place] [phone] PCP - General Internal Medicine 09/10/15 08/23/21 Aaliyah Ann MD [address] [place] [address] PCP - General Internal Medicine 08/24/21 documented as of this encounter
--- OUTSIDE RECORDS SUMMARY | 2025-01-16 11:34 | XMS_ITS | Encounter Summary ---
Author Organization [facility] Address [address] [place] [address] Care Team Providers Care Virtual Assistant Name Role Phone Name, Handy ALCANTAR Primary Care Provider Jung Nur MD Primary Care Provider [phone] Aaliyah Ann MD Primary Care Provide r Unavailable Encounter Details Date Type Department Care Team Description 05/19/2015 Hospital Medical Records [address] [place] [address] Abigail Martinez Social History Tobacco Use Types Packs/Day Years [...] on filedocumented in this encounter Care Teams Virtual Assistant Relationship Specialty Start Date End Date Name, MD Handy PCP - General 08/11/09 09/09/15 Jung Almeida MD [address] [place] [address] [phone] PCP - General Internal Medicine 09/10/15 08/23/21 Aaliyah Ann MD [address] [place] [address] PCP - General Internal Medicine 08/24/21 documented as of this encounter
--- OUTSIDE RECORDS SUMMARY | 2025-01-16 11:34 | XMS_ITS | Encounter Summary ---
Author Organization [facility] Address [address] [place] [address] Care Team Providers Care Merchandise Planning Manager Name Role Phone Aaliyah Ann MD Primary Care Provide r Unavailable Encounter Details Date Type Department Care Team Description 10/11/2021 Telephone General Surgery - [address] [place] [phone] Kevin Mccollum MD [address] [place] [phone] Social History Tobacco Use Types Packs/Day Years Used Date Smoking Tobacco: Former Cigarettes 0.5 0 1977 - 06/28/2015 Smokeless Tobacco: Never Alcohol Use Standard Drinks/Week Comments Yes 0 (1 standard drink = 0.6 oz pur e alcohol) 5-6 beers per mo Sex Assigned at Date Recorded Not on file Job Start Date Occupation Industry Not on file Not on file Not on file COVID-19 Exposure Response Date Recorded In the last month, have you been in contact with someone who was confirmed or suspected to have Coronavirus / COVID-19? No / Unsure 10/11/2021 8:39 AM EST documented as of this encounter Plan of Treatment Not on file documented as of this encounter Visit Diagnoses Not on filedocumented in this encounter Care Teams Merchandise Planning Manager Relationship Specialty Start Date End Date Aaliyah Ann MD PCP - General Internal Medicine 08/24/21 documented as of this encounter
--- OUTSIDE RECORDS SUMMARY | 2025-01-16 11:34 | XMS_ITS | Encounter Summary ---
Author Organization [facility] Address [address] [place] [address] Care Team Providers Care Assistant Spa Director Name Role Phone Jung Almeida MD Primary Care Provider [phone] Aaliyah Ann MD Primary Care Provide r Unavailable Encounter Details Date Type Department Care Team Description 04/26/2016 Telephone Cardiology - [address] [phone] Jaclyn Manning MD [address] [place] [address] [phone] Social History Tobacco Use Types Packs/Day Years [...] on file documented as of this encounter Miscellaneous Notes * Telephone Encounter - Jaclyn Manning MD - 04/26/2016 12:33 PM EDT Called pt to let him know his cardiac MR results which showed no ARVD. He had 4.2cm dilatation of the ascending thoracic aorta as well, correlating with echo measurement. At this point, he can be followed by serial echo yearly for this. He can follow up with cardiology as needed. He should avoid heavy lifting >50lbs. The pt had no further questions. documented in this encounter Plan of Treatment Not on file documented as of this encounter Visit Diagnoses Diagnosis Dilitation of thoracic aorta 3.6 cm- Primary documented in this encounter Care Teams Assistant Spa Director Relationship Specialty Start Date End Date Jung Almeida MD [address] [place] [address] PCP - General Internal Medicine 09/10/15 08/23/21 Aaliyah Ann MD [address] [place] [address] PCP - General Internal Medicine 08/24/21 documented as of this encounter
--- OUTSIDE RECORDS SUMMARY | 2025-01-16 11:34 | XMS_ITS | Encounter Summary ---
Author Organization [facility] Address [address] [place] [address] Care Team Providers Care Adobe Developer Name Role Phone Name, Handy ALCANTAR Primary Care Provider [facility] Jung Al MD Primary Care Provider [phone] Aaliyah Ann MD Primary Care Provide r Unavailable Encounter Details Date Type Department Care Team Description 05/03/2015 Hospital Medical Records [address] [place] [phone] Farzad Fleming MD Social History Tobacco Use Types Packs/Day [...] on filedocumented in this encounter Care Teams Adobe Developer Relationship Specialty Start Date End Date Name, MD Handy PCP - General 08/11/09 09/09/15 Jung Almeida MD [address] [place], [place] [phone] PCP - General Internal Medicine 09/10/15 08/23/21 Aaliyah Ann MD [address] [place] [address] PCP - General Internal Medicine 08/24/21 documented as of this encounter
--- OUTSIDE RECORDS SUMMARY | 2025-01-16 11:34 | XMS_ITS | Encounter Summary ---
Author Organization [facility] Address [address] [place] [address] Care Team Providers Care Electronic Engraver Name Role Phone Name, Handy ALCANTAR Primary Care Provider Jung Nur MD Primary Care Provider [phone] Aaliyah Ann MD Primary Care Provide r Unavailable Encounter Details Date Type Department Care Team Description 11/22/2013 Hospital Medical Records [address] [place] [address] Kevin Mccollum MD [address] [place] [address] [phone] Social History Tobacco Use Types Packs/Day Years [...] on filedocumented in this encounter Care Teams Electronic Engraver Relationship Specialty Start Date End Date Name, MD Handy PCP - General 08/11/09 09/09/15 Jung Almeida MD [address] [place] [address] [phone] PCP - General Internal Medicine 09/10/15 08/23/21 Aaliyah Ann MD [address] [place] [address] PCP - General Internal Medicine 08/24/21 documented as of this encounter
--- OUTSIDE RECORDS SUMMARY | 2025-01-16 11:34 | XMS_ITS | Encounter Summary ---
Author Organization [facility] Address [address] [place] [address] Care Team Providers Care Overnight Stocker Name Role Phone Jung Almeida MD Primary Care Provider [phone] Aaliyah Ann MD Primary Care Provide r Unavailable Encounter Details Date Type Department Care Team Description 10/28/2016 Pyrometer Temperature Regulator Report Medical Records [address] [place] [address] Raven Castillo PA-C Social History Tobacco Use Types Packs/Day [...] on filedocumented in this encounter Care Teams Overnight Stocker Relationship Specialty Start Date End Date Jung Almeida MD [address] [place] [address] [phone] PCP - General Internal Medicine 09/10/15 08/23/21 Aaliyah Ann MD [address] [place] [address] PCP - General Internal Medicine 08/24/21 documented as of this encounter
--- OUTSIDE RECORDS SUMMARY | 2025-01-16 11:34 | XMS_ITS | Encounter Summary ---
Author Organization [facility] Address [address] [place] [address] Care Team Providers Care Aurist Name Role Phone Name, Handy ALCANTAR Primary Care Provider Jung Nur MD Primary Care Provider [phone] Aaliyah Ann MD Primary Care Provide r Unavailable Reason for Visit * Reason Onset Date Comments Provider Call Back 07/22/2014 Encounter Details Date Type Department Care Team Description 07/22/2014 Telephone Physiatry - [place] [address] [place] [address] Jocy Ngo MD [address] [place] [address] [place] [address] Provider Call Back Social History Tobacco Use Types Packs/Day Years Used Date Smoking Tobacco: Some Days Cigarettes 0.5 Smokeless Tobacco: Never Comments:quit [id number] Alcohol Use Standard Drinks/Week Comments Yes 0 (1 standard drink = 0.6 oz pur e alcohol) rarely Sex Assigned at Date Recorded Not on file Job Start Date Occupation Industry Not on file Not on file Not on file documented as of this encounter Miscellaneous Notes * Telephone Encounter - Teena Bruno M.A. - 07/22/2014 3:51 PM EST I spoke to patient. Patient is aware that this appointment is the average wait time for CTS. Patient advised to call insurance company and get further names of hand surgeons and we will try other providers if he wishes. Patient states he will keep appointment but would like to be kept out of work until that time. Patient aware that Dr Estrella will not keep him out of work with carpal tunnel syndrome unless it is a severe case . I offered for patient to come in and discuss CTS injection therapy to control pain until he is able to see hand surgeon but patient declined. Patient states he would contact his PCP for an out of work note. * Telephone Encounter - Jordyn Stephenson - 07/22/2014 3:28 PM EST Pt returning Teena's phone call * Telephone Encounter - Kim Oneill - 07/22/2014 3:10 PM EST Patient is returning Teena's phone call * Telephone Encounter - Teena Bruno M.A. - 07/22/2014 3:02 PM EST Message for patient to call back * Telephone Encounter - Jordyn Stephenson - 07/22/2014 2:48 PM EST Pt was referred to have carpal tunnel surgery done at [facility] But is unable to be scheduled until October. Pt would like to have this done sooner. Please advise. documented in this encounter Plan of Treatment Not on file documented as of this encounter Visit Diagnoses Not on filedocumented in this encounter Care Teams Aurist Relationship Specialty Start Date End Date Name, MD Handy PCP - General 08/11/09 09/09/15 Jung Almeida MD [address] [place] [address] PCP - General Internal Medicine 09/10/15 08/23/21 Aaliyah Ann MD [address] [place] [address] PCP - General Internal Medicine 08/24/21 documented as of this encounter
--- OUTSIDE RECORDS SUMMARY | 2025-01-16 11:34 | XMS_ITS | Encounter Summary ---
Author Organization [facility] Address [address] [place] [address] Care Team Providers Care Training Director Name Role Phone Jung Almeida MD Primary Care Provider [phone] Aaliyah Ann MD Primary Care Provide r Unavailable Encounter Details Date Type Department Care Team Description 11/09/2020 Telephone Adult [address] [phone] Jung Almeida MD [address] [place] [address] [phone] Social History Tobacco Use Types Packs/Day Years [...] on filedocumented in this encounter Care Teams Training Director Relationship Specialty Start Date End Date Jung Almeida MD [address] [place] [address] [phone] PCP - General Internal Medicine 09/10/15 08/23/21 Alaiyah Ann MD [address] [place] [address] PCP - General Internal Medicine 08/24/21 documented as of this encounter
--- OUTSIDE RECORDS SUMMARY | 2025-01-16 11:34 | XMS_ITS | Encounter Summary ---
Author Organization [facility] Address [address] [place] [address] Care Team Providers Care Sap Solution Manager Consultant Name Role Phone Jung Almeida MD Primary Care Provider [phone] Aaliyah Ann MD Primary Care Provide r Unavailable Encounter Details Date Type Department Care Team Description 09/21/2015 Orders Only Gastroenterology - [address] [address] Miki Purvis MD Social History Tobacco Use Types Packs/Day [...] on filedocumented in this encounter Care Teams Sap Solution Manager Consultant Relationship Specialty Start Date End Date Jung Almeida MD [address] [place] [phone] PCP - General Internal Medicine 09/10/15 08/23/21 Aaliyah Ann MD [address] [place] [address] PCP - General Internal Medicine 08/24/21 documented as of this encounter
--- OUTSIDE RECORDS SUMMARY | 2025-01-16 11:34 | XMS_ITS | Referral Summary ---
Author Organization [facility] Address [address] [place] [address] Care Team Providers Care Highway Traffic Control Technician Name Role Phone Sabra Lim Primary Care [...] Plan of Treatment Not on file Insurance [facility] [place] [id number] Control Technician Relationship Specialty Start Date End Date Sabra Lim [address] [place] [address] PCP - General 09/04/20
--- OUTSIDE RECORDS SUMMARY | 2025-01-16 11:34 | XMS_ITS | Encounter Summary ---
Author Organization [facility] Address [address] [place] [address] Care Team Providers Care Leadership Intern Name Role Phone Handy Knowles MD Primary Care Provider Jung Nur MD Primary Care Provider [phone] Aaliyah Ann MD Primary Care Provide r Unavailable Reason for Referral * Specialist (Routine) - Authorized/Booked Specialty Diagnoses / Procedures Referred By Beulah lucas Referred To Contact ORTHOPEDICS / Orthopedic Procedures REFERRAL TO ORTHOPEDICS Handy Knowles MD [address] [place] [phone] [place] [address] Orthopedic, Surgeons [address] [place] [phone] Referral ID Status Reason Start Date Expiration Date V isits Requested Visits Authorized SEE NOTE Authorized/B ooked 01/09/2015 04/28/2015 1 1 Reason for Visit * Reason Onset Date Comments Fingernail Former Feedback 01/08/2015 Dr. China Olivas Encounter Details Date Type Department Care Team Description 01/08/2015 Telephone Adult Medicine [address] [address] Handy Knowles MD Fingernail Former Feedback (Dr. China HOPPER) Social History Tobacco Use Types Packs/Day Years Used Date Smoking Tobacco: Some Days Cigarettes 0.5 Smokeless Tobacco: Never Comments:quit [id number] Alcohol Use Standard Drinks/Week Comments Yes 0 (1 standard drink = 0.6 oz pur e alcohol) rarely Sex Assigned at Date Recorded Not on file Job Start Date Occupation Industry Not on file Not on file Not on file documented as of this encounter Miscellaneous Notes * Telephone Encounter - Di Francesco - 01/09/2015 7:20 AM EDT Patient call Please review this patients new referral request. The referral has been pended. Please complete thefollowing: If approved> sign order If denied>please give instructions and route to your practice nursing pool. Practice nurse should inform referrals and the patient if denied. * Telephone Encounter - Corbin Esquivel - 01/08/2015 3:38 PM EDT Did you verify this is patients current insurance? YES Pay or: [facility] MEDICAID / Plan: [facility] MEDICAID O $0 [place] / Product Type: HMO [id number] Effective 05/28/09: BCBS will not retro referral requests over 90 days. If request is for this please instruct patient to call the 800# on their insurance card to appeal. Do not submit a request. Referrals cannot be processed if the insurance is not accurate. If the insurance listed above in red is NO BILLING INFORMATION FOUND FOR THIS ENCOUTNER The patients correct insurance must be obtained and registered in [employer] or their referral can not be processed. Who is calling to request this referral? Patient If the caller is not the patient, what is their name? N/A FIRST and LAST NAME of SPECIALIST PATIENT is seeing: What specialty is this? ORTHOPEDICS DIAGNOSIS Patient is being seen for (Not a body part or a procedure): Left ankle swelling Have you seen this SPECIALIST for this PROBLEM/DX before?NO If YES, when:n/a Have you checked REVIEW or the APPT DESK to see if this referral has already been done or has visits left? YES Who referred the patient to this specialty? Handy Name Is this visit:Initial Visit Address of Specialist: [address] [place] [employer] Phone # of Specialist:[phone] Fax #: (if applicable):n/a Does patient have an appointment scheduled?: NO Date of appointment- (including a retro-request): TBD Is this appointment related to: Not MVA, WC or Surgery related documented in this encounter Plan of Treatment Not on file documented as of this encounter Visit Diagnoses Not on filedocumented in this encounter Care Teams Leadership Intern Relationship Specialty Start Date End Date Name, MD Handy PCP - General 08/11/09 09/09/15 Jung Almeida MD [address] [place] [phone] PCP - General Internal Medicine 09/10/15 08/23/21 Aaliyah Ann MD [address] [place] [phone] PCP - General Internal Medicine 08/24/21 documented as of this encounter
--- OUTSIDE RECORDS SUMMARY | 2025-01-16 11:34 | XMS_ITS | Encounter Summary ---
Author Organization [facility] Address [address] [place] [address] Care Team Providers Care Diecast Machine Operator Name Role Phone Name, Handy ALCANTAR Primary Care Provider [facility] Jung Al MD Primary Care Provider [phone] Aaliyah Ann MD Primary Care Provide r Unavailable Encounter Details Date Type Department Care Team Description 05/28/2015 Hospital Medical Records [address] [place], [place] [phone] Isabella Dow, RAINA Social History Tobacco Use Types Packs/Day Years [...] on filedocumented in this encounter Care Teams Diecast Machine Operator Relationship Specialty Start Date End Date Name, MD Handy PCP - General 08/11/09 09/09/15 Jung Almeida MD [address] [place], [place] [phone] PCP - General Internal Medicine 09/10/15 08/23/21 Aaliyah Ann MD [address] [place] [address] PCP - General Internal Medicine 08/24/21 documented as of this encounter
--- OUTSIDE RECORDS SUMMARY | 2025-01-16 11:34 | XMS_ITS | Encounter Summary ---
Author Organization [facility] Address [address] [place] [address] Care Team Providers Care Woodwork Teacher Name Role Phone Jung Almeida MD Primary Care Provider [phone] Aaliyah Ann MD Primary Care Provide r Unavailable Encounter Details Date Type Department Care Team Description 04/06/2017 [facility] Report Medical Records [address] [place] [address] Raven Castillo PA-C Social History Tobacco Use [...] on filedocumented in this encounter Care Teams Woodwork Teacher Relationship Specialty Start Date End Date Jung Almeida MD [address] [place] [address] [phone] PCP - General Internal Medicine 09/10/15 08/23/21 Aaliyah Ann MD [address] [place] [phone] PCP - General Internal Medicine 08/24/21 documented as of this encounter
== END 2025-01-16 11:20 | disposition home or self-care (01) ==
LOC: HO.PMC 10:52
PROVIDERS: PCP Internal Medicine; Visit Provider Nurse Practitioner Family
DX: M53.3 Sacrococcygeal disorders, not elsewhere classified (principal); M47.816 Spondylosis without myelopathy or radiculopathy, lumbar region; G89.29 Other chronic pain; M16.11 Unilateral primary osteoarthritis, right hip
CPT/HCPCS: 99214

== ENCOUNTER → 2025-01-16 10:51 | Outpatient (BNVA) | payer MEDICAID, SELFPAY | PROVIDERS: PCP Internal Medicine; Visit Provider Nurse Practitioner Family | DX: M53.3 Sacrococcygeal disorders, not elsewhere classified (principal); M16.11 Unilateral primary osteoarthritis, right hip; M47.816 Spondylosis without myelopathy or radiculopathy, lumbar region; G89.29 Other chronic pain | CPT/HCPCS: 99212 ==

== ENCOUNTER 2025-02-20 06:25 | Outpatient (REF) | payer MEDICAID, SELFPAY ==
--- NOTE | ~2025-02-20 | FL_ITS ---
EXAMINATION: FL GUIDANCE ONLY HISTORY: M53.3 - Sacrococcygeal disorders, not elsewhere classified COMPARISON: None available. TECHNIQUE: Fluoroscopy time: 0.1 minutes. Cumulative Dose: 5.10 mGy. DAP: 0.0425 mGym2 Images: 2. FINDINGS: Fluoroscopic spot films of the right hemipelvis demonstrate a needle in the region of the sacroiliac joint. FL/FL guidance in treatment room IMPRESSION: Fluoroscopy during procedure. Please see procedure report for additional information. Electronically signed by: Mc Norwood MD 02/20/2025 02:48 PM EDT
== END 2025-02-20 06:26 | disposition home or self-care (01) ==
LOC: CF 06:25
PROVIDERS: Visit Provider Internal Medicine
DX: M53.3 Sacrococcygeal disorders, not elsewhere classified (principal); G89.29 Other chronic pain; M46.1 Sacroiliitis, not elsewhere classified
CPT/HCPCS: 27096; J2003; J2795; J3301

== ENCOUNTER 2025-02-20 12:52 | Outpatient (AMB) | payer MEDICAID, SELFPAY ==
[2025-02-20 12:55] VITALS: BP 132/71; PULSE 61; RESP 16; O2SAT 95; BMI 38.0
--- NOTE | 2025-02-20 12:55 | MHC.OFFVIS ---
Vital Signs 02/20/25 12:55 02/20/25 13:00 Height 5 ft 10 in 5 ft 10 in Weight 265 lb 265 lb BMI 38.0 38.0 BP 132/71 148/79 H Blood Pressure Location Lt brachial Lt brachial Position Sitting Sitting Respiration 16 16 Pulse 61 62 Pulse Source Pulse Oximeter Pulse Oximeter Pulse Oximetry (%) 95 97 Oxygen Delivery Method Room Air Room Air Intake Visit Reasons: Right theraputic SIJ inj Allergies duloxetine Allergy (Severe, Verified 01/16/25 11:03) Nightmare baclofen (BACLOFEN) Allergy (Intermediate, Verified 01/16/25 11:03) RASH HPI HPI Right theraputic SIJ inj: Details: Patient presents for scheduled procedure. Denies any recent cough, cold, infection, fever or other significant changes in medical history since last office visit. PFSH Medical History Peripheral vascular disease Morbid obesity Sacroiliac joint dysfunction of right side Sacroiliitis HTN (hypertension) Descending thoracic aortic dissection Ascending aortic aneurysm Leg edema SOB (shortness of breath) Peptic ulcer disease Back pain Anxiety Hx of lipoma Constipation Esophagitis Sacroiliac joint pain Sacroiliitis Hypercholesteremia GERD (gastroesophageal reflux disease) Fatty liver VALERY (obstructive sleep apnea) Pulmonary hypertension Anemia Surgical History Status post excision of lipoma (~08/01/23) Hx of surgical procedure (06/19/23) Hx of repair of dissecting thoracic aortic aneurysm, [place] type B Hx of colonoscopy History of esophagogastroduodenoscopy (EGD) History of carpal tunnel release of both wrists History of arthroscopy of both knees Hx of cholecystectomy Family History Father Depression Suicide Mother Diabetes Dementia Heart problem Sister Dementia, Onset Age: 73 Sister No problems noted. Brother No problems noted. Family/Other No problems noted. Social History Alcohol intake: former Patient Tobacco Use Status: Current someday Tobacco user Years Smoked: 30 +/- Physical Exam Vital Signs: Last Vital Signs Pulse 62 02/20/25 13:00 Resp 16 02/20/25 13:00 BP 148/79 H 02/20/25 13:00 Pulse Ox 97 02/20/25 13:00 Oxygen Delivery Method Room Air 02/20/25 13:00 BMI result Body Mass Index 38.0 Office Procedures AMB Joint Injection/Aspiration Joint Injection/Aspiration Details: Sacroiliac Joint Injection, Right The procedure, its benefits, and its risks were explained and written informed consent was obtained from the patient. Immediately prior to starting the procedure, a time-out safety check was conducted. The patient's identification, procedure name, procedure site, and procedure laterality were confirmed with the patient. ? Patient was placed prone on the fluoroscopy table and the lumbosacral area was prepped using ChloraPrep and draped with sterile draped in standard fashion. The C-arm was rotated in a contralateral oblique fashion until the medial border of the iliac crest no longer foreshadowed the posterior sacroiliac joint line. The skin and subcutaneous tissue was anesthetized using 1 mL of 0.75% plain lidocaine with 1.5-inch 25-gauge needle in the middle region of the joint line.? A 3.5-inch 22-gauge spinal needle with small bend on the tip was slowly advanced towards the joint line, coaxial to the x-ray beam. Once bony content was obtained, the needle was easily slid into the intra-articular space.? Intra-articular needle position was confirmed using lateral fluoroscopy.? A total volume of 2.5mL of solution containing 40 mg trimcinilone and rest 0.5% of ropivacaine was injected intra-articularly. The stylet was reinserted and needle was removed. The patient tolerated the procedure well. Patient denied any lower extremity weakness or numbness. Patient was observed for 30 min and was discharged after fulfilling the standard discharge criteria. Coding 38853 - Sacroiliac Procedure code (CPT) selection complete Assessment & Plan Assessment & Plan (1) Sacroiliitis: Code(s): M46.1 - Sacroiliitis, not elsewhere classified Category: Medical Plan Patient is status post therapeutic right SIJ injection. Patient tolerated procedure well and was discharged home in stable condition with discharge instructions. All questions were answered. We will follow-up via telephone or in clinic to assess response to therapy. A follow-up appointment was made during today's visit. Orders: Orders FL guidance in treatment room 02/20/25 M53.3 - Sacrococcygeal disorders, not elsewhere classified, G89.29 - Other chronic pain Coding Level of Care Code Procedure Only Diagnoses Sacroiliitis M46.1 CPT Codes Coding - Joint 9: 05640 - Sacroiliac ([id number])
[2025-02-20 13:00] VITALS: BP 148/79; PULSE 62; RESP 16; O2SAT 97; BMI 38.0
--- OUTSIDE RECORDS SUMMARY | 2025-02-20 15:18 | XMS_ITS | Clinical Summary ---
Author Organization [employer] Address [address] [facility] [address] [place] [address] Care Team Providers Care Manager Six Sigma Name Role Phone Aaliyah Roche MD Primary [...] A DAY WITH FOOD, Reported on 07/22/2024 Ventolin HFA 108 (90 Base) MCG/ACT inhaler [...] 12/07/19 24 Active pravastatin (Pravachol) 20 MG tabletIndicatio ns:Essential hypertension Take 1 tablet (20 mg) by mouth Once per day. 30 tablet 11/14/192025 Active amLODIPine (Norvasc) 10 MG tablet TAKE 1 TABLET BY MOUTH EVERY DAY IN THE MORNING 90 tablet 1 12/12/19 Active albuterol (2.5 MG/3ML) 0.083% nebulizer solution Take 3 mL (2.5 mg) by nebulization every 6 (six) hours if needed for wheezing or shortness of breath. 75 mL 1 12/18/19 25 2025 Active Nebulizer misc 1 Units Every 4-6 hours as needed (Q6 hr PRN per albuterol order). Pt provided Acceleron Nebulizer machine. Education provided. Pt verbalized understanding. Active lisinopril 20 MG tabletIndicatio ns:Essential hypertension TAKE 1 TABLET BY MOUTH EVERY DAY IN THE MORNING 90 tablet 1 02/12/20 Active lisinopril 20 MG tabletIndicatio ns:Essential hypertension TAKE 1 TABLET BY MOUTH EVERY DAY IN THE MORNING 90 tablet 1 07/02/20 24 2024 Discontinued Hospital, Clinic, or Other Facility Administered Medication Ordered Dose Route Frequency Start Date End Date Status ketorolac (Toradol) injection 30 mgIndications:Right hip pain 30 mg IM Once 02/01/2025 02/01/2025 Ended Active Problems Problem Noted Date Diagnosed Date [...] PM EDT): Followed by weight management on wegovy Assessment & Plan (05/08/2023 12:47 PM EDT): [...] Neg cardiac w/u and cta HH 04/2015 [facility] / nuclear stress done Encounters Date Type Department Care Team Description 02/11/2025 Refill [facility] [address] [place] [address] Aaliyah Roche MD Essential hypertension 02/01/2025 9:20 AM EDT Office Visit [facility] [address] [place] [address] David Pizano MD Right hip pain 02/01/2025 Travel 01/13/2025 Orders Only GENERIC EXTERNAL DATA DEPARTMENT Provider, Generic External Data 01/10/2025 Orders Only GENERIC EXTERNAL DATA DEPARTMENT Provider, Generic External Data 12/21/2024 Refill [facility] [address] [place] [address] Aaliyah Roche MD Essential hypertension 12/18/2024 Refill [facility] [address] [place] [address] Aaliyah Roche MD Essential hypertension 12/17/2024 9:20 AM EDT Office Visit [facility] [address] [address] Yung Dao MD COPD exacerbation ([facility]) (Primary Dx); Nasal congestion 12/17/2024 Travel 12/10/2024 Refill [facility] [address] [place] [address] Aaliyah Roche MD 11/29/2024 1:00 PM EDT Office Visit [facility] [address] [place] [phone] Jaswant Durant MD 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) 11/29/2024 Travel from Last 3 Months Immunizations Immunization Administration [...] Sign Reading Time Taken Comments Blood Pressure 129/73 02/01/2025 9:14 AM EDT Pulse 76 02/01/2025 9:14 AM EDT Temperature 36.2 C (97.1 F) 02/01/2025 9:14 AM EDT Respiratory Rate 16 02/01/2025 9:14 AM EDT Oxygen Saturation 97% 02/01/2025 9:14 AM EDT Inhaled Oxygen Concentration - - Weight 117 kg (259 lb) 02/01/2025 9:14 AM EDT Height 177.8 cm (5' 10 ) 02/01/2025 9:14 AM EDT Body Mass Index 37.16 02/01/2025 9:14 AM EDT Plan of Treatment Health Maintenance Due Date Last Done Comments CT Colonography 1965 Colonoscopy 1965 FIT 1965 FOBT 1965 HIV Screening 1965 Sigmoidoscopy 1965 Disability Screening 1965 Derm Melanoma Skin Check 1965 Diabetes: Foot Exam 1975 Hepatitis C Screening 1983 Hepatitis B Vaccines (1 of 3 - 19+ 3-dose series) 1984 Zoster Vaccines (1 of 2) 2015 DTaP/Tdap/Td Vaccines (2 - Td or Tdap) 05/21/2023 05/21/2013 Depression Monitoring 12/04/2024 06/05/2024, 024 Diabetes: Urine Protein Screening 04/23/2025 04/23/2024, 02/01/2024, 05/11/2023 Diabetes: Hemoglobin A1C 05/16/2025 025, 06/05/2024, 08/10/2023, Additional history exists Alcohol/Substance Use Screening 07/31/2025 07/31/2024 Lipid Panel [...] Procedure Name Priority Date/Time Associated Diagnosis Comments CYTOPATH-CELL ENHANCED Routine 01/13/2025 5:04 PM EDT PSA, TOTAL WITH REFLEX TO PSA, FREE [...] use of insulin ([facility]) LIPID PANEL, STANDARD Routine 09/13/2024 10:16 AM EST Class 3 severe obesity due to excess calories with serious comorbidity and body mass index (BMI) of 40.0 to 44.9 in adult ([facility]) CREATININE, RANDOM URINE Routine 04/23/2024 8:19 AM EDT LAB COLOGUARD COLON CANCER SCREEN Routine 06/08/2023 8:20 AM EDT Colon cancer screening from Last 3 Months or Most Recently Relevant to Health Maintenance Results * Cytopath-cell enhanced (01/13/2025 5:04 PM EDT) 01/13/2025 5:04 PM EDT 01/14/2025 9:00 AM EDT [facility] - 01/16/2025 8:51 AM EDT ----- ------- Name: Silvestre Villalobos A Age/Sex: 59/M : 1965 Unit#: [id number] Attend Dr: Pati Falcon MD Re01/13/25 Status: DEP REF Location: .LAB Disch: ----- ------- SPEC : [id number] RECD: 01/14/25 STATUS: LUBNA EASTMAN NUM: [id number] NICK: 01/13/25-[address] [facility] [address]: Pati Falcon MD ENTERED: 01/14/25 TYPE: Cytology OTHR DR: Aaliyah Roche MD ORDERED: Cyto-enhanced Diagnosis Urine: Negative for high-grade urothelial carcinoma. Comment: Examination of monolayer preparation slide shows scattered benign degenerated urothelial cells, occasional benign squamous cells, and occasional inflammatory cells and red blood cells. Clinical History Other microscopic hematuria Material Received Urine Gross Description Received is 10 cc of very cloudy yellow fluid from which a ThinPrep slide is prepared. Copies To: Pati Falcon MD [facility] [address] [place] [address] Dr. Thomas [address] [place], [place] [phone] [email or web address] Aaliyah Roche MD [facility] [address] [place] [address] ----- ------- Signed (signature on file) Verito Lombardo 01/16/25 0851 ----- ------- END OF REPORT us Generic External Data Provider LAB CYTOLOGY ORDE SANJUANA Final Result [facility] [address], [place] [phone] * PSA, Total With Reflex to PSA, Free (01/10/2025 9:00 AM EDT) Pathologist [facility] PSA,Total (Free>4and<10) 2.00 0.00 - 4.00 ng/mL [facility] Comment:A Free PSA was not [...] 9:00 AM EDT 01/10/2025 9:04 AM EDT Generic External Data Provider LAB BLOOD ORDERAB LES Final Result [facility] [address] [place] [phone] * POCT Rapid Influenza B JEAN ID NOW (12/17/2024 9:40 AM EDT) [facility] Influenza B Negative Negative, Indeterminate [facility] QC Media Lot # [id number] [facility] Lot# Expiration Date [facility] Swab 12/17/2024 9:40 AM EDT Yung Dao MD POINT OF CARE TEST ENTER/EDIT OR DERABLES Final Result Performing Organization Address City/[facility]/ZIP Co de Phone Number [facility] [address] [place] [phone] * POCT Rapid Influenza A JEAN ID NOW (12/17/2024 9:40 AM EDT) [facility] Influenza A Negative Negative, Indeterminate [facility] QC Media Lot # [id number] [facility] Lot# Expiration Date [facility] Swab 12/17/2024 9:40 AM EDT Yung Dao MD POINT OF CARE TEST ENTER/EDIT OR DERABLES Final Result [facility] [address] [place] [address] [phone] * POCT Rapid Covid-19 BinaxNOW (12/17/2024 [...] 10:16 AM EST) Triglycerides 209(H) <150 mg/dL [facility] Comment:Desirable Triglyceri de: less than 150 mg/dLBorderline High Triglyceride 150-199 mg/dLHigh Triglyceride: 200-499 mg/dLVery High Triglyceride: greater than or equal to 5OO mg/dL Cholesterol 212(H) <200 mg/dL [facility] Comment:Desirable Cholestero l: less than 200 mg/dLBorderline High Cholesterol: 200-239 mg/dLHigh Cholesterol: greater than 239 mg/dL LDL Cholesterol Calculated 140(H) <100 mg/dL [facility] Comment:Desirable LDL: less than 100 mg/dLNear Optimal/Above Optimal LDL: 110- 129 mg/dLBorderline High LDL: 130-159 mg/dLHigh LDL: 160-189 mg/dLVery High LDL: greater than or equal to 190 mg/dL HDL Cholesterol 31(L) >40 mg/dL [facility] Comment:Desirable HDL: great er than 40 mg/dL Note: This HDL assay may give artificially low results in patients with liver disease. Blood Venous blood specimen / Unknown 09/13/2024 10:16 AM EST 09/13/2024 11:30 AM EST us Aaliyah Hrenandez MD LAB BLOOD ORDERABLES Final Result Performing Organization Address [facility] Co de Phone Number [facility] [address] [place] [phone] * Creatinine, Random Urine (04/23/2024 8:19 AM EDT) Creatinine, Urine 308.33 mg/dL [facility] 04/23/2024 8:19 AM EDT 04/23/2024 10:33 AM EDT us Generic External Data Provider LAB URINE ORDERAB LES Final Result Performing Organization Address [facility] Co de Phone Number [facility] [address] [place] [phone] * Cologuard?? colon cancer screening (06/08/2023 8:20 AM EDT) Cologuard Result Negative Negative 06/15/20 4:38 AM EDT [employer] (CLIA #:[id number]) Comment: NEGATIVE TEST RESULT. A negative Cologuard result indicates a low likelihood that a colorectal cancer (CRC) or advanced adenoma (adenomatous polyps with more advanced pre-malignant features) is present. The chance that a person with a negative Cologuard test has a colorectal cancer is less than 1 in 1500 (negative predictive value >99.9%) or has an advanced adenoma is less than 5.3% (negative predictive value 94.7%). These data are based on a prospective cross-sectional study of 10,000 individuals at average risk for colorectal cancer who were screened with both Cologuard and colonoscopy. (Terrance Matt et al, N Engl J Med 2014;370(14):9926-6430) The normal value (reference range) for this assay is negative. COLOGUARD RE-SCREENING RECOMMENDATION: Periodic colorectal cancer screening is an important part of preventive healthcare for asymptomatic individuals at average risk for colorectal cancer. Following a negative Cologuard result, the [place] Cancer Society and U.S. Multi-Society Task Force screening guidelines recommend a Cologuard re-screening interval of 3 years. References: [place] Cancer Society Guideline for Colorectal Cancer Screening: https://www.cancer.org/cancer/thgrt-lhiuyn-mdjopj/befqnxmro-ldxinpjpr-brnnxgy/ac s-rec ommendations.html.; Ming JARA, Branden FOLEY, Doc MoraK, Colorectal Cancer Screening: Recommendations for Physicians and Patients from the U.S. Multi-Society Task Force on Colorectal Cancer Screening , Am J Gastroenterology 2017; 112:7610-6038. TEST DESCRIPTION: Composite algorithmic analysis of stool DNA-biomarkers with hemoglobin immunoassay. Quantitative values of individual biomarkers are not [...] Matt et al, N Engl J Med 2014;370(14):0096-1594.) Cologuard may produce a false negative or false positive result (no colorectal cancer or precancerous polyp present at colonoscopy follow up). A negative Cologuard test result does not guarantee the absence of CRC or advanced adenoma (pre-cancer). The current Cologuard screening interval is every 3 years. ([employer] Cancer Society and U.S. Multi-Society Task Force). Cologuard performance data in a 10,000 patient pivotal study using colonoscopy as the reference method can be accessed at the following location: www.Oravel/results. Additional description of the Cologuard test process, warnings and precautions can be found at www.cologuard.com. Stool specimen (specimen) 06/08/2023 8:20 AM EDT 06/09/2023 3:33 PM EDT Aaliyah Hernandez MD LAB MOLECULAR DIAGNOS TICS ORDERABLES Final Result [employer] (CLIA #:[id number]) [place] [address], from Last 3 Months or Most Recently Relevant to Health Maintenance Insurance [facility] C3 Care Teams Manager Six Sigma Relationship Specialty Start Date End Date Aaliyah Roche MD [address] [place] [phone] PCP - General Family Medicine 07/03/19
== END 2025-02-20 14:11 | disposition home or self-care (01) ==
LOC: HO.PMCPRC 12:52
PROVIDERS: PCP Internal Medicine; Visit Provider Internal Medicine
DX: M46.1 Sacroiliitis, not elsewhere classified (principal)
CPT/HCPCS: 27096

== ENCOUNTER 2025-03-05 10:11 | Outpatient (REF) | payer MEDICAID, SELFPAY ==
--- OUTSIDE RECORDS SUMMARY | 2025-03-05 10:56 | XMS_ITS | Clinical Summary ---
Author Organization 175 [facility] Address 175 [place] [address] Phone Care Team Providers Care Granite Chip Terrazzo Finisher Name Role Phone Aaliyah Roche MD Primary Care Provide r Allergies Active Allergy Reactions Criticality Noted Date Comments Baclofen Rash 01/12/2009 Medications AMLODIPINE-ATOR VASTATIN ORAL Take by mouth. Active CARVEDILOL ORAL Take by mouth. Active LISINOPRIL ORAL Take by mouth. Active trazodone HCl (TRAZODONE ORAL) Take by mouth. Active tirzepatide, weight loss, (Zepbound) 5 mg/0.5 mL injection Inject 0.5 mL (5 mg total) under the skin every 7 (seven) days. 2 mL 5 03/19/20 25 Active tirzepatide, weight loss, (Zepbound) 2.5 mg/0.5 mL injection INJECT 0.5 ML (2.5 MG TOTAL) UNDER THE SKIN EVERY 7 (SEVEN) DAYS FOR 28 DAYS. 2 mL 5 02/18/20 25 Discontinued Active Problems Problem Noted Date Diagnosed Date Class 3 severe obesity with body mass index (BMI) of 40.0 to 44.9 in adult (CMS/[facility] V24, [facility] V28) 06/11/2024 Obstructive sleep apnea 11/09/2020 [...] Encounters Date Type Department Care Team Description 02/21/2025 10:00 AM EDT Nutrition Bariatric Surgery - [address] [phone] Class 2 severe obesity with serious comorbidity and body mass index (BMI) of 37.0 to 37.9 in adult, unspecified obesity type (CMS/HCC V24, CMS/HCC V28) (Primary Dx) 12/19/2024 10:30 AM EDT Nutrition Bariatric Surgery [address] [phone] Class 2 obesity with [...] PROCEDURE: HISTORICAL BLADDER SURGERY ESOPHAGOGASTRODUODENOSCOPY 09/24/15 PROCEDURE: AK ESOPHAGOGASTRODUODENOSCOPY TRANSORAL DIAGNOSTIC; COMMENT: Duodenitis, otherwise normal [...] Comments Brother 1 Brother 2 Alive HTN, [place] at 55 y o Brother 3 mi [...] Oxygen Concentration - - Weight 117 kg (258 lb) 02/21/2025 10:06 AM EDT Height 177.8 cm (5' 10 ) 07/23/2024 11:51 AM EST Body Mass Index 37.02 07/23/2024 11:51 AM EST Plan of Treatment Upcoming Encounters Date Type Department Care Team (Late st Contact Info) Description 03/13/2025 2:15 PM EDT Office Visit Bariatric Surgery [facility] [address] [phone] Francesca Bermudez PA [address] [address] 03/18/2025 10:15 AM EDT Consult Orthopedic Surgery [facility] [address] [phone] Venkata Mejia, DPM [address] [phone] 05/20/2025 10:00 AM EDT Nutrition Bariatric Surgery [facility] [address] [phone] Katty Stewart, VALERY [address] [phone] Health Maintenance Due Date Last Done Comments Diabetes: Annual Foot Exam 1975 Diabetes: Annual Retina Eye Exam 1975 Hepatitis A Vaccines (1 of 2 - Risk 2-dose series) 1984 Hepatitis B Vaccines (1 of 3 - 19+ 3-dose series) 1984 Zoster Vaccines (1 of 2) 2015 Social Influencers of Health Screening 07/31/2022 DTaP,Tdap,and Td Vaccines (2 - Td or Tdap) 05/21/2023 05/21/2013 Diabetes: Annual Urine Albumin-Creatinine Ratio (uACR) 07/23/2024 Influenza Vaccine (#1) 2025 , 05/30/2023, 09/07/2022, Additional history exists Diabetes: Blood Sugar Control [...] Completed 06/05/2024, 06/2023, 09/03/2021, Additional history exists HIB Vaccines Aged Out [...] Results * Annual BMP Blood Test (03/24/2016) [facility] Annual BMP Blood Test abstracted [facility] Provider HEALTH MAINTENANCE Final Result * (ABNORMAL) Lipid panel (03/24/2016) [facility] LDL/HDL Ratio 5(A) 0 - 4 Triglycerides 257(A) 0 - 150 mg/dL Cholesterol 187 0 - 200 mg/dL HDL 38(A) >=40 mg/dL LDL Cholesterol 98 0 - 100 mg/dL Blood Venous blood specimen / Unknown [facility] Provider LAB BLOOD ORDERABLES Delisa l Result * Hemoglobin A1c (12/30/2015) [facility] Hemoglobin A1C 5.6 4.0 - 6.0 % Blood Venous blood specimen / Unknown [facility] Provider LAB BLOOD ORDERABLES Delisa l Result * HIV Screening (05/25/2013) [facility] HIV Screening abstracted [facility] Provider HEALTH MAINTENANCE Final Result * Hepatitis C Screening (05/25/2013) [facility] Hepatitis C Screening abstracted [facility] Provider HEALTH MAINTENANCE Final Result from Last 3 Months or Most Recently Relevant to Health Maintenance Insurance MEDICAID - [place] Care Teams Granite Chip Terrazzo Finisher Relationship Specialty Start Date End Date Aaliyah Roche MD [address] [phone] PCP - General Internal Medicine 08/24/21
--- OUTSIDE RECORDS SUMMARY | 2025-03-05 10:56 | XMS_ITS | Clinical Summary ---
Author Organization [employer] Address 75 [facility] 7[address] [place] [address] Care Team Providers Care Pasteurizer Name Role Phone Aaliyah Roche MD Primary Care Provide r Allergies Active Allergy Reactions Criticality Noted Date Comments Baclofen Rash High 01/12/2009 Other reaction(s): full body rash Cyclobenzaprine Rash Low 05/14/2021 Duloxetine High 02/10/2023 Other reaction(s): Nightmare Medications glucose blood test stripIndication s:Impaired fasting glucose Use daily to check finger stick BS 100 each 12 01/04/20 23 Active Additional Information Patient not taking.Reported on 03/05/2025 Symbicort 160-4.5 MCG/ACT inhaler INHALE 2 PUFF TWICE A DAY *RINSE MOUTH AND THROAT AFTER USE* 05/24/20 23 Active metFORMIN XR (Glucophage-XR) 500 MG 24 hr tabletIndicatio ns:Prediabetes TAKE 1 TABLET BY MOUTH WITH EVENING MEAL 90 tablet 1 04/16/20 24 Active prazosin (Minipress) 1 MG capsule TAKE 1 [...] FOOD 360 tablet 1 07/02/20 24 Active Ventolin HFA 108 (90 Base) MCG/ACT inhaler Inhale 2 puffs every 6 (six) hours. Active Azelastine HCl 137 MCG/SPRAY solution SPRAY 2 SPRAYS INTO EACH NOSTRIL TWICE A DAY FOR 30 DAYS 07/02/20 24 Active fluticasone (Flonase) 50 MCG/ACT nasal spray [...] IN THE MORNING 90 tablet 1 02/12/20 25 Active permethrin (Elimite) 5 % creamIndication s:Scabies apply to skin from hairline to toes and wash off 8-10 hours later 60 g 1 03/05/20 25 Active Alpha-Lipoic Acid 600 MG capsuleIndicati ons:Neuropathy Take 1 capsule (600 mg) by mouth Once per day. 90 capsule 03/05/20 25 Active lisinopril 20 MG tabletIndicatio ns:Essential hypertension TAKE 1 TABLET BY MOUTH EVERY DAY IN THE MORNING 90 tablet 1 07/02/20 24 2024 Discontinued Active Problems Problem Noted Date Diagnosed Date Scabies 03/05/2025 Neuropathy 03/05/2025 History of melanoma 11/13/2024 Chronic right-sided thoracic [...] meals. Check fgstk daily, glucometer sent to [facility] pharmacy Encouraged physical activity as tolerated. [...] 09/05/2022 Obstructive sleep apnea 11/09/2020 Overview (01/03/2023): [facility]ysomnogram Date 08/12/2019. Wt 273#; BMI 39. [...] Neg cardiac w/u and cta HH 04/2015 [facility] / nuclear stress done Encounters Date Type Department Care Team Description 03/05/2025 9:30 AM EDT Office Visit [facility] [address] [place] [address] Aaliyah Roche MD Neuropathy (Primary Dx); Scabies 03/05/2025 Refill [facility] [address] [place] [address] Aaliyah Roche MD Neuropathy 03/05/2025 Travel 02/11/2025 Refill [facility] [address] [place] [address] Aaliyah Roche MD Essential hypertension 02/01/2025 9:20 AM EDT Office Visit [facility] [address] [place] [address] David Pizano MD Right hip pain 02/01/2025 Travel 01/13/2025 Orders Only GENERIC EXTERNAL DATA DEPARTMENT Provider, Generic External Data 01/10/2025 Orders Only GENERIC EXTERNAL DATA DEPARTMENT Provider, Generic External Data 12/21/2024 Refill [facility] [address] [place] [address] Aaliyah Roche MD Essential hypertension 12/18/2024 Refill [facility] [address] [place] [address] Aaliyah Roche MD Essential hypertension 12/17/2024 9:20 AM EDT Office Visit [facility] [address] [place] [phone] Yung Dao MD COPD exacerbation ([facility]) (Primary Dx); Nasal congestion 12/17/2024 Travel 12/10/2024 Refill [facility] [address] [place] [address] Aaliyah Roche MD from Last 3 Months Immunizations Immunization Administration [...] Answer Date Recorded Patient Health Questionnaire-9 Score 0 03/05/2025 Patient Health Questionnaire-9 Score 0 03/05/2025 Last PHQ-9: Questionnaire Data Not on file 0 03/05/2025 Housing Stability Answer Date Recorded What is [...] the past 12 months, has t he [employer], gas, oil or water company threatened to shut off services in your home? No 11/13/2024 Depression Answer Date Recorded Patient Health Questionnaire-2 Score 0 03/05/2025 Internet Access Answer Date Recorded Internet Access [...] Sign Reading Time Taken Comments Blood Pressure 110/74 03/05/2025 8:57 AM EDT Pulse 60 03/05/2025 8:57 AM EDT Temperature 37.1 C (98.7 F) 03/05/2025 8:57 AM EDT Respiratory Rate 16 03/05/2025 8:57 AM EDT Oxygen Saturation 97% 02/01/2025 9:14 AM EDT Inhaled Oxygen Concentration - - Weight 116 kg (255 lb) 03/05/2025 8:57 AM EDT Height 177.8 cm (5' 10 ) 03/05/2025 8:57 AM EDT Body Mass Index 36.59 03/05/2025 8:57 AM EDT Plan of Treatment Health Maintenance [...] Urine Protein Screening 04/23/2025 04/23/2024, 02/01/2024, 05/11/2023 Influenza Vaccine (#1) 2025 , 05/30/2023, 09/07/2022, Additional history exists Diabetes: Hemoglobin A1C 05/16/2025 025, 06/05/2024, 08/10/2023, Additional history exists Alcohol/Substance Use Screening 07/31/2025 07/31/2024 Lipid Panel 09/13/2025 09/13/2024, 04/28, 03/10/2022, Additional history exists SDOH Screening 11/13/2025 11/13/2024 Tobacco Screening 12/17/2025 12/17/2024 Eye Exam 12/19/2025 12/20/2023, 11/27, 12/20/2023, Additional history exists Depression Screening 03/05/2026 03/05/2025, 03/05/20 25 Disability Screening 03/05/2026 03/05/2025 Colorectal Cancer Screening 06/08/2026 FIT DNA/Cologuard 06/08/2026 [...] hyperglycemia, without long-term current use of insulin ([facility]) LIPID PANEL, STANDARD Routine 09/13/2024 10:16 AM EST Class 3 severe obesity due to excess calories with serious comorbidity and body mass index (BMI) of 40.0 to 44.9 in adult (CMS/HCC) CREATININE, RANDOM URINE Routine 04/23/2024 8:19 AM EDT LAB COLOGUARD COLON CANCER SCREEN Routine 06/08/2023 8:20 AM EDT Colon cancer screening from Last 3 Months or Most Recently Relevant to Health Maintenance Results * Cytopath-cell enhanced (01/13/2025 5:04 PM EDT) 01/13/2025 5:04 PM EDT 01/14/2025 9:00 AM EDT [facility] - 01/16/2025 8:51 AM EDT ----- ------- Name: Silvestre Villalobos Age/Sex: 59/M : 1965 Unit#: [id number] Attend Dr: Pati Falcon MD Re01/13/25 Status: DEP REF Location: [facility] Disch: ----- ------- SPEC : [id number] RECD: 01/14/25 STATUS: LUBNA EASTMAN NUM: [id number] NICK: 01/13/[address]: Pati Falcon MD ENTERED: 01/14/25 SP TYPE: Cytology OTHR DR: Aaliyah Roche MD [...] is prepared. Copies To: Pati Falcon MD [facility] [address] [place] [address] [address] [place] [address] [email or web address] Aaliyah Roche MD [address] [address] ----- ------- Signed (signature on file) Verito Lombardo 01/16/25 0851 ----- ------- END OF REPORT Generic External Data Provider LAB CYTOLOGY ORDE RABLES Final Result Performing Organization Address City/State/[facility] Co de Phone Number [facility] [address] [place] [phone] * PSA, Total With Reflex to PSA, Free (01/10/2025 9:00 AM EDT) PSA,Total (Free>4and<10) 2.00 0.00 - 4.00 ng/mL [facility] Comment:A Free PSA was not p [...] ORDERAB LES Final Result Performing Organization Address [facility] de Phone Number [facility] [address] [place] [phone] * POCT Rapid Influenza B JEAN ID NOW (12/17/2024 9:40 AM EDT) Influenza B Negative Negative, Indeterminate [facility] QC Media Lot # [id number] [facility] Lot# Expiration Date [id number] [facility] Swab 12/17/2024 9:40 AM EDT Yung Dao MD POINT OF CARE TEST ENTER/EDIT OR DERABLES Final Result Performing Organization Address [facility] Co de Phone Number [facility] [address] [place] [phone] * POCT Rapid Influenza A JEAN ID NOW (12/17/2024 9:40 AM EDT) Influenza A Negative Negative, Indeterminate [facility] QC Media Lot # [id number] [facility] Lot# Expiration Date [facility] Swab 12/17/2024 9:40 AM EDT Yung Dao MD POINT OF CARE TEST ENTER/EDIT OR DERABLES Final Result [facility] [address] [place] [phone] * POCT Rapid Covid-19 BinaxNOW (12/17/2024 9:37 AM EDT) Pathologist [facility] Rapid COVID Ag Negative QC Media Lot # [id number] Lot# Expiration Date Swab 12/17/2024 9:37 AM EDT Yung Dao MD POINT OF CARE TEST ENTER/EDIT OR DERABLES Final Result * POCT HGB A1C (11/13/2024 2:22 PM EDT) Pathologist [facility] Hemoglobin A1C 5.6 4.0 - 6.0 % QC Media Lot # [id number] Lot# Expiration Date Blood 11/13/2024 2:22 PM EDT Aaliyah Hernandez MD POINT OF CARE TEST EN TER/EDIT ORDERABLES Final Result * (ABNORMAL) Lipid Panel, Standard (09/13/2024 10:16 AM EST) Pathologist [facility] Triglycerides 209(H) <150 mg/dL [facility] Comment:Desirable Triglyceri de: less than 150 mg/dLBorderline High Triglyceride 150-199 mg/dLHigh Triglyceride: 200-499 mg/dLVery High Triglyceride: greater than or equal to 5OO mg/dL Cholesterol 212(H) <200 mg/dL [facility] Comment:Desirable Cholestero l: less than 200 mg/dLBorderline High Cholesterol: 200-239 mg/dLHigh Cholesterol: greater than 239 mg/dL LDL Cholesterol Calculated 140(H) <100 mg/dL [facility] Comment:Desirable LDL: less than 100 mg/dLNear Optimal/Above Optimal LDL: 110- 129 mg/dLBorderline High LDL: 130-159 mg/dLHigh LDL: 160-189 mg/dLVery High LDL: greater than or equal to 190 mg/dL HDL Cholesterol 31(L) >40 mg/dL [facility] Comment:Desirable HDL: great er than 40 mg/dL Note: This HDL assay may give artificially low results in patients with liver disease. Blood Venous blood specimen / Unknown 09/13/2024 10:16 AM EST 09/13/2024 11:30 AM EST us Aaliyah Hernandez MD LAB BLOOD ORDERABLES Final Result Performing Organization Address City/[facility]/ZIP Co de Phone Number [facility] [address] [place] [phone] * Creatinine, Random Urine (04/23/2024 8:19 AM EDT) Creatinine, Urine 308.33 mg/dL [facility] 04/23/2024 8:19 AM EDT 04/23/2024 10:33 AM EDT us Generic External Data Provider LAB URINE ORDERAB LES Final Result Performing Organization Address [facility]/ZIP Co de Phone Number [facility] [address] [place] [phone] * Cologuard?? colon cancer screening (06/08/2023 8:20 AM EDT) Cologuard Result Negative Negative 06/15/20 4:38 AM EDT [facility] (CLIA #:[id number]) Comment: NEGATIVE TEST RESULT. A negative Cologuard [...] (Terrance Ellison al, N Engl J Med 2014;370(14):4121-6462) The normal value (reference range) for this assay is negative. COLOGUARD RE-SCREENING RECOMMENDATION: Periodic colorectal cancer screening is an important part of preventive healthcare for asymptomatic individuals at average risk for colorectal cancer. Following a negative Cologuard result, the [place] and U.S. Multi-Society Task Force screening guidelines recommend a Cologuard re-screening interval of 3 years. References: [place] Guideline for Colorectal Cancer Screening: https://www.cancer.org/cancer/pxnnk-eymanh-vvohzy/tzkrosjlv-jglzvrpir-jzqnxxx/ac s-rec ommendations.html.; Ming DK, Branden FOLEY, Doc MoraK, Colorectal Cancer Screening: Recommendations for Physicians and Patients from the U.S. Multi-Society Task Force on Colorectal Cancer Screening , Am J Gastroenterology 2017; 112:2483-9371. TEST DESCRIPTION: Composite algorithmic analysis of stool [...] (Terrance Ellison al, N Engl J Med 2014;370(14):3483-6006.) Cologuard may produce a false negative or false positive result (no colorectal cancer or precancerous polyp present at colonoscopy follow up). A negative Cologuard test result does not guarantee the absence of CRC or advanced adenoma (pre-cancer). The current Cologuard screening interval is every 3 years. ([place] and U.S. Multi-Society Task Force). Cologuard performance data in a 10,000 patient pivotal study using colonoscopy as the reference method can be accessed at the following location: www.[employer]/results. Additional description of the Cologuard test process, warnings and precautions can be found at www.[employer].com. Stool specimen (specimen) 06/08/2023 8:20 AM EDT 06/09/2023 3:33 PM EDT Aaliyah Hernandez MD LAB MOLECULAR DIAGNOS TICS ORDERABLES Final Result [facility] (CLIA #:[id number]) [place] [address] [place] [address], from Last 3 Months or Most Recently Relevant to Health Maintenance Insurance [facility] C3 Care Teams Pasteurizer Relationship Specialty Start Date End Date Aaliyah Roche MD [address] [place] [phone] PCP - General Family Medicine 07/03/19
--- OUTSIDE RECORDS SUMMARY | 2025-03-05 10:57 | XMS_ITS | Clinical Summary ---
Author Organization [facility] Address [address] [place] [address] Care Team Providers Care Color Printer Operator Name Role Phone Sabra Lim Primary [...] 05/21/2013 Alcohol/Substance Use Screening 08/28/2024 Influenza Vaccine (#1) 2025 05/21/2013 RSV Vaccine (60+ years old a nd patients) (1 - 1-dose 75+ series) 2040 Insurance [employer] Care Teams Color Printer Operator Relationship Specialty Start Date End Date Sabra Lim [address] [place] [address] [place] [id number] PCP - General 09/04/20
[2025-03-05 12:10] LABS: Appearance Urine Turbid; Glucose Urine UA Negative (Negative); PH 6.0 (5.0-9.0); Specific Gravity - Urine 1.025 (1.005-1.025); UMIC TRIGGER UA YES
[2025-03-05 12:32] LABS: Anion Gap 12 (12-20); Blood Urea Nitrogen 17 mg/dL (9-16); Calcium 9.1 mg/dL (8.4-10.2); Carbon Dioxide 25 mmol/L (22-29); Chloride 107 mmol/L (96-108); Estimated Glomerular Filt Rate > 60; Potassium 4.0 mmol/L (3.3-5.1); Sodium 140 mmol/L (135-145)
[2025-03-05 12:56] LABS: Total Protein Urine Random 27 mg/dL (<12)
== END 2025-03-05 10:12 | disposition home or self-care (01) ==
LOC: HO.HHCL 10:11
PROVIDERS: PCP Internal Medicine; Referring Provider Internal Medicine Hypertension Specialist; Visit Provider Internal Medicine
DX: R80.9 Proteinuria, unspecified (principal); G62.9 Polyneuropathy, unspecified
CPT/HCPCS: 36415; 80048; 81001; 82570; 84156

== ENCOUNTER 2025-03-20 12:54 | Outpatient (AMB) | payer MEDICAID, SELFPAY ==
--- NOTE | 2025-03-20 12:57 | A.OFFVIS_ITS ---
Vital Signs 03/20/25 13:01 Height 5 ft 10 in Weight 257 lb 4 oz BMI 36.9 BP 156/76 H Blood Pressure Location Rt brachial Position Sitting Pulse 62 Pulse Source Pulse Oximeter Pulse Oximetry (%) 98 Oxygen Delivery Method Room Air Intake Visit Reasons: s/p right SIJ inj Intake Note: Pain today 4/10 Diplomatic Interpreter Required: No Accompanied by: Self / Same As Patient Allergies duloxetine Allergy (Severe, Verified 03/20/25 13:08) Nightmare baclofen (BACLOFEN) Allergy (Intermediate, Verified 03/20/25 13:08) RASH HPI Comments Details: Patient presents today to assess response to right therapeutic sacroiliac joint injection on 02/20/[address] Doyle. Patient reports after he received a therapeutic right sacroiliac joint injection, initially it provided complete pain relief. However, the pain was exacerbated following an incident where the patient lifted his son, who is in a wheelchair and over 300 lbs, approximately a week ago. The pain is currently minimal, rated at 4/10, and is localized to the right lower back without radiation to the legs. He reports minimal aggravation of back pain with flexion forward. There is no associated numbness, tingling, weakness or urinary incontinence. Patient reports that prior to the exacerbation, the injection provided 100% pain relief for a 3 weeks. Denies any recent cough, cold, infection, fever or any other significant changes in medical history since last office visit. Past Procedures: 02/20/25: Right therapeutic SI joint [id number]% ongoing pain relief 12/19/24: Right hip steroid injection with fluoroscopy--0% pain 05/18/23: Right L3 Sprint removal-80% pain relief (setting at 80 prior to removal) 03/22/23: Right L3 medial branch Sprint trial-80% at 80 with paresthesia 12/21/22: Bilateral Diagnostic L3-L4-L5 MBB-90% pain relief for 8 hours, ongoing 60% pain relief 08/24/22: Right Anterior Cutaneous Nerve Block with steroids-80% ongoing pain relief 06/01/21: Diagnostic Right SIJ injection-good results PRIOR: Patient is a pleasant 57 years old male who presents today for evaluation for right upper quadrant pain and chronic upper and lower back pain. He was last seen in our office by Dr. Reaves on 06/01/21 for right SIJ diagnostic injection with no follow ups. Patient reports right sided abdominal pain for 3 months unrelated to PO intake or fasting and radiates towards the mid back. He reports occasional radiation of his back pain into his right lower extremity posteriorly without numbness or tingling. 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 Lopez?s operative notes. His complex medical history is noted for descending thoracic aortic aneurysm status post endovascular repair and cholecystectomy, esophagitis, GERD, peptic ulcer disease, fatty liver and morbid obesity. Patient is [place]. Weber [place] [facility] [place] [facility] [place] Patient describes pain as intermittent stabbing, spasming and lancinating pain worse in the morning upon awakening rated at 8/10 on average and least severe pain in the afternoon rated at 5/10. He also reports RUQ pain wakes him up at night with hot and burning sensations. Denies diaphoresis at night or during the day. Pain increases with movements, weather changes, heat/cold applications, prolonged walking, bending, lifting and twisting. Patient takes flexeril 10 mg tid prn, Ibuprofen 800 mg bid prn and Tylenol to manage his symptoms. Patient also takes daily aspirin 81 mg. Patient reports Lidocaine patches were denied by his insurance. Patient reports his GI medications were adjusted s/p EGD and he notes partial symptom relief. He recently completed repeat abdominal US on 07/15/22 which showed generalized increase in hepatic echotexture, consistent with fatty infiltration or hepatocellular disease. Characteristic pericholecystic sparing favors fatty infiltration. No focal hepatic mass or intrahepatic biliary dilatation is seen. Technically limited ultrasound examination, in particular of the pancreas. Patient denies any fever, malaise, unintentional weight loss, dizziness, chest pain, headache, nausea, vomiting, bowel pattern changes, bloody stools, hematuria, painful urination, UTI, kidney stones, leg weakness, bowel or bladder incontinence or saddle anesthesia. Patient also reports occasional chest pain, fatigue, shortness of breath and dyspnea after walking for 10 minutes. He has follow-up with cardiology Dr. Weber and Dr. Marino in 08/2022. Goal blood pressure less than 130/[address] Weber. Patient reports his home BP readings are on average 140-170's/70-80's. Patient reports he will follow up with Dr. Weber about symptomatic high BP readings. PRIOR 04/15/21 Dr. Reaves: Mr. Silvestre Villalobos is very pleasant 56 years old gentleman who presents in my o ice after a long time of absence. He was treated for lower back pain back in September of 2019. He was complaining on pain in the back with radiation into the right lower extremity. His pain started about 3 years ago. At that time we performed right sacroiliac joint injection with very good results once however the injection was technically difficult with almost no sacroiliac joint space available to penetrate despite very significant efforts to do so. And yet he reported on periarticular joint injection 70% pain relieve which lasted about 45 days. Of where repeated sacroiliac joint injection however patient was lost to follow-up due to COVID-19 infection widespread. Since then he was examined for multiple cardiac problems including thoracic I aortic aneurysm abdominal aortic aneurysm and peripheral vascular disease. He also has some cardiac problems, however he is not on any blood thinners. He was treated by Dr. Marino of 4 dissecting descending thoracic aortic aneurysm. He reports that after this procedure he has severe pain in the right upper abdomen and right costal margin with radiation of this pain to the suprascapular area on the right. He sometimes connect this pain with the pain on the right side in the projection of the right sacroiliac joint. He reports his pain 5/10 in severity he is taking opioids 5 mg oxycodone t.i.d. which is prescribed by primary care doctor. He reports that he cannot sleep normally cannot do activities of daily living he can take care of himself but he cannot function normally he is on sick leave from his job. He reports that heat application and cold applications both aggravates his pain. He reports his pain in terms of tissue damage is tugging, pulling, ranging, dull, sore, hurting, aching, heavy, spreading, radiating, piercing, tight, squeezing, tearing. His past medical history significant for chest pain in angina which was related to descending thoracic aortic aneurysm dissection. He also suffers from hypertension fatigue shortness of breath he has arthritis and he had knee arthroscopies done in the past. He had gallbladder surgery so his gallbladder is absent then we cannot consider pain in right upper quadrant as the gallbladder pain. As it is described above he had stenting of descending thoracic aortic aneurysm. It was done in September of 2020. [facility] Medical History Peripheral vascular disease Morbid obesity Sacroiliac joint dysfunction of right side Sacroiliitis HTN (hypertension) Descending thoracic aortic dissection Ascending aortic aneurysm Leg edema SOB (shortness of breath) Peptic ulcer disease Back pain Anxiety Hx of lipoma Constipation Esophagitis Sacroiliac joint pain Sacroiliitis Hypercholesteremia GERD (gastroesophageal reflux disease) Fatty liver VALERY (obstructive sleep apnea) Pulmonary hypertension Anemia Surgical History Status post excision of lipoma (~08/01/23) Hx of surgical procedure (06/19/23) Hx of repair of dissecting thoracic aortic aneurysm, [place] type B Hx of colonoscopy History of esophagogastroduodenoscopy (EGD) History of carpal tunnel release of both wrists History of arthroscopy of both knees Hx of cholecystectomy Family History Father Depression Suicide Mother Diabetes Dementia Heart problem Sister Dementia, Onset Age: 73 Sister No problems noted. Brother No problems noted. Family/Other No problems noted. Social History Alcohol intake: former Patient Tobacco Use Status: Current someday Tobacco user Years Smoked: 30 +/- Review of Systems Const All systems reviewed & are unremarkable except as noted in HPI and below Physical Exam General: Appears afebrile. Alert and oriented. Mood and affect appropriate. Follows and participates in conversation appropriately. Respiratory effort is unlabored. No cough. Able to transition from sit to stand unassisted. Ambulates with bilaterally normal heel strike and toe off. General: Yes no CVA tenderness Back/Spine/Pelvis Other: Lumbar flexion and extension reproduces mild pain. Demonstrates 5/5 left and 4/5 right strength of quadriceps bilaterally as well as flexion/dorsiflexion of bilateral feet against resistance. 2+ pedal pulses bilaterally. Straight leg rise with dorsiflexion negative bilaterally. +1 patellar and achilles reflexes bilaterally. Facet loading test positive bilaterally. Tony?s reproduces minimal right low back, buttock and right lateral hip melody. Mild groin pain with I/E hip rotations on the right, no pain on the left. Valsalva maneuver is negative. Back: no CVA tenderness Cervical Spine: cervical ROM normal and No Cervical spine tenderness Thoracic/Lumbar Spine: thoracic and lumbar spine normal to inspection, Lasegue's sign negative, straight leg raise negative bilaterally, pain with thoraco-lumbar ROM, paraspinal muscle tenderness on the right in the lower lumbar, thoraco- lumbar ROM limited, No thoracic spinal tenderness and No lumbar spinal tenderness Sacroiliac joints: on the right tender to palpation and on the left nontender Results Reviewed Results Reviewed: MR LUMBAR SPINE WITHOUT CONTRAST 11/05/24 at [facility] INDICATION: Evaluate spinal stenosis vs nerve impingement, lumbar pain w radiculopathy affecting lower extremity TECHNIQUE: MRI lumbar spine was performed according to routine protocol with multiplanar fast spin echo imaging and sagittal fat-suppressed T2 imaging. COMPARISON: MRI lumbar spine of 10/24/2023 FINDINGS: Alignment and Curvature: Normal Conus and Cauda Equina: The conus terminates at the L1 level and demonstrates no signal abnormality. Vertebral Body Heights: No significant height loss. Marrow Signal: No significant abnormality. Discs: Mild multilevel degenerative disc desiccation. T12-L1: There is no significant canal or foraminal stenosis. L1-L2: There is no significant canal or foraminal stenosis. L2-L3: There is no significant canal or foraminal stenosis. L3-L4: Shallow disc bulge, facet arthropathy and ligamentum flavum thickening. No significant central canal stenosis. Narrowing of bilateral subarticular zones, possibly contacting the descending nerve roots. Mild to moderate left and mild right foraminal stenosis. Findings are interval slightly progressed since prior exam. L4-L5: No significant spinal canal stenosis. Bilateral facet arthropathy. Mild bilateral foraminal stenosis. Findings are interval slightly progressed since prior exam. L5-S1: No significant spinal canal stenosis. Bilateral facet arthropathy. Moderate left foraminal stenosis. No significant right foraminal stenosis. Narrowing of bilateral subarticular zones, possibly contacting the descending nerve roots without nerve impingement. Findings are similar to prior exam. No abnormality is identified at the visualized portion of the sacrum. Small T2 hyperintense structure in the left kidney which may represent cysts, similar to prior exam. IMPRESSION: Interval slightly progressed degenerative changes of the lumbar spine compared to MRI of 10/24/2023. Findings are notable for moderate left foraminal stenosis at L5-S1, and mild to moderate left foraminal stenosis at L3-L4. No significant spinal canal stenosis in the lumbar spine. XR hip RT min 2V 11/16/24 2 view left hip 2 view right hip Comparison: CT/SR - CT ABDOMEN PELVIS W IV CON - 09/14/24 00:30 EST Findings: No acute fracture or dislocation. [id number]-gf-rpiectji degenerative changes of the bilateral hip joints, left slightly greater than right. Degenerative changes at the pubic symphysis joint. The partially imaged sacroiliac joints appear relatively maintained. The soft tissues are unremarkable. IMPRESSION: No acute findings. Gids-[id number]-pijyfhrh degenerative changes of the bilateral hip joints, left slightly greater than right. Assessment & Plan Assessment & Plan (1) Lumbar spondylosis: Code(s): M47.816 - Spondylosis without myelopathy or radiculopathy, lumbar region Category: Medical (2) Chronic right SI joint pain: Code(s): M53.3 - Sacrococcygeal disorders, not elsewhere classified; G89.29 - Other chronic pain Category: Medical (3) Degenerative joint disease of right hip: Code(s): M16.11 - Unilateral primary osteoarthritis, right hip Category: Medical Qualifiers: Osteoarthritis type: primary Qualified Code(s): M16.11 - Unilateral primary osteoarthritis, right hip Plan The patient experienced significant relief from the recent therapeutic right sacroiliac joint injection, with pain initially reduced to 0/10. Following an incident involving lifting his son who is in wheelchair, the pain increased but remains manageable at 4/10. The patient is advised to monitor the pain and contact the clinic if it returns to baseline levels or if pain worsens. All questions and concerns have been answered and patient agreed with the plan. Follow up as needed. Patient was informed and verbally consented to the use of an ambient scribe for clinic note documentation during this visit. Coding Level of Care Code Est Pt Level 3 (54195) Complex EM visit Add On G2211 Diagnoses Lumbar spondylosis M47.816 Chronic right SI joint pain M53.3; G89.29 Primary osteoarthritis of right hip M16.11 Osteoarthritis type: primary
[2025-03-20 13:01] VITALS: BP 156/76; PULSE 62; O2SAT 98; BMI 36.9
--- OUTSIDE RECORDS SUMMARY | 2025-03-20 13:05 | XMS_ITS | Clinical Summary ---
Author Organization [facility] Address [address] [place] [address] Care Team Providers Care Lead Burner Apprentice Name Role Phone Sabra Lim Primary Care Provider [phone] Allergies Active Allergy Reactions Criticality Noted Date [...] (1 - 1-dose 75+ series) 2040 Insurance [employer] Care Teams Lead Burner Apprentice Relationship Specialty Start Date End Date Sabra Lim [address] [place] [address] [place] [id number] PCP - General 09/04/20
--- OUTSIDE RECORDS SUMMARY | 2025-03-20 13:05 | XMS_ITS | Clinical Summary ---
Author Organization [employer] Address [address] [place] [address] Care Team Providers Care Director Geophysical Laboratory Name Role Phone Aaliyah Roche MD Primary Care Provide r Allergies Active Allergy Reactions Criticality Noted Date Comments Baclofen Rash High 01/12/2009 Other reaction(s): full body rash Cyclobenzaprine Rash Low 05/14/2021 Duloxetine High 02/10/2023 Other reaction(s): Nightmare Medications glucose blood test stripIndications :Impaired fasting glucose Use daily to check finger stick BS 100 each 12 3 Active Additional Information Patient not taking.Reported on 03/05/2025 Symbicort 160-4.5 MCG/ACT inhaler INHALE 2 PUFF TWICE A DAY *RINSE MOUTH AND THROAT AFTER USE* 3 Active metFORMIN XR (Glucophage-XR) 500 MG 24 hr tabletIndication s:Prediabetes TAKE 1 TABLET BY MOUTH WITH EVENING MEAL 90 tablet 1 4 Active prazosin (Minipress) 1 MG capsule TAKE 1 CAPSULE BY MOUTH EVERYDAY AT BEDTIME 90 capsule 1 4 Active Diclofenac Sodium 1 % gelIndications:A rthralgia, unspecified joint APPLY 2 GRAMS TO THE AFFECTED AREA 3 TIMES A DAY NEEDED 100 g 2 4 Active carvedilol (Coreg) 25 MG tablet TAKE 2 TABLETS BY MOUTH TWICE A DAY WITH FOOD 360 tablet 1 4 Active Ventolin HFA 108 (90 Base) MCG/ACT inhaler Inhale 2 puffs every 6 (six) hours. Active Azelastine HCl 137 MCG/SPRAY solution SPRAY 2 SPRAYS INTO EACH NOSTRIL TWICE A DAY FOR 30 DAYS 4 Active fluticasone (Flonase) 50 MCG/ACT nasal spray Administer 1 spray into each nostril Once per day. 4 Active ipratropium (Atrovent) 0.03 % nasal spray Administer 2 sprays into each nostril 3 times daily. 4 Active pravastatin (Pravachol) 20 MG tabletIndication s:Essential hypertension Take 1 tablet (20 mg) by mouth Once per day. 30 tablet 11 5 026 Active amLODIPine (Norvasc) 10 MG tablet TAKE 1 TABLET BY MOUTH EVERY DAY IN THE MORNING 90 tablet 1 5 Active albuterol (2.5 MG/3ML) 0.083% nebulizer solution Take 3 mL (2.5 mg) by nebulization every 6 (six) hours if needed for wheezing or shortness of breath. 75 mL 1 5 026 Active Nebulizer misc 1 Units Every 4-6 hours as needed (Q6 hr PRN per albuterol order). Pt provided Acceleron Nebulizer machine. Education provided. Pt verbalized understanding. Active lisinopril 20 MG tabletIndication s:Essential hypertension TAKE 1 TABLET BY MOUTH EVERY DAY IN THE MORNING 90 tablet 1 5 Active permethrin (Elimite) 5 % creamIndications :Scabies apply to skin from hairline to toes and wash off 8-10 hours later 60 g 1 5 Active Alpha-Lipoic Acid 600 MG capsuleIndicatio ns:Neuropathy Take 1 capsule (600 mg) by mouth Once per day. 90 capsule 5 Active predniSONE (Deltasone) 10 MG tabletIndication s:Allergic dermatitis due to poison kiya Take by oral route daily. 6 tabs (=60mg) on day 1-2; 5 tabs (=50mg) on day 3-4; 4 tabs (=40mg) on day 5-6; 3 tabs (=30mg) on day 7-8; 2 tabs (=20mg) on day 9-10; 1 tab on day 11-12; 1/2 tab on day 13-14 43 tablet 5 Active doxycycline (Vibra-Tabs) 100 MG tablet Take 1 tablet (100 mg) by mouth 2 times daily for 10 days. Take with a full glass of water and do not lie down for at least 30 minutes after. 20 tablet 5 025 Active Active Problems Problem Noted Date Diagnosed [...] meals. Check fgstk daily, glucometer sent to [facility] pharmacy Encouraged physical activity as tolerated. FU [...] w/u and cta HH 04/2015 [facility] / nuclear stress done Encounters Date Type Department Care Team Description 03/18/2025 7:00 PM EDT Office Visit [facility] [address] [place] [phone] Cielo Esparza FNP Cellulitis of forearm, left (Primary Dx) 03/18/2025 Travel 03/07/2025 9:20 AM EDT Office Visit [facility] [address] [address] David Pizano MD Allergic dermatitis due to poison kiya (Primary Dx) 03/07/2025 Travel 03/05/2025 9:30 AM EDT Office Visit [facility] [address] [place] [phone] Aaliyah Roche MD Neuropathy (Primary Dx); Scabies 03/05/2025 Orders Only GENERIC EXTERNAL DATA DEPARTMENT Provider, Generic External Data 03/05/[address] [facility] [address] [place] [phone] Aaliyah Roche MD Neuropathy 03/05/2025 Travel 02/11/[address] [facility] [address] [place] [phone] Aaliyah Roche MD Essential hypertension 02/01/2025 9:20 AM EDT Office Visit [facility] [address] [address] David Pizano MD Right hip pain 02/01/2025 Travel 01/13/2025 Orders Only GENERIC EXTERNAL DATA DEPARTMENT Provider, Generic External Data 01/10/2025 Orders Only GENERIC EXTERNAL DATA DEPARTMENT Provider, Generic External Data 12/21/[address] [address] Aaliyah Roche MD Essential hypertension from Last 3 Months Immunizations Immunization Administration [...] your housing situation today? I have raoul mayo 11/13/[address] you li [...] t he electric, gas, oil or water [employer] threatened to shut off services in your [...] Sign Reading Time Taken Comments Blood Pressure 130/70 03/18/2025 6:52 PM EDT Pulse 72 03/18/2025 6:52 PM EDT Temperature 36.7 C (98 F) 03/18/2025 6:52 PM EDT Respiratory Rate 16 03/18/2025 6:52 PM EDT Oxygen Saturation 98% 03/07/2025 8:48 AM EDT Inhaled Oxygen Concentration - - Weight 118 kg (259 lb 12.8 oz) 03/18/2025 6:52 P M EDT Height 177.8 cm (5' 10 ) 03/05/2025 8:57 AM EDT Body Mass Index 37.28 03/05/2025 8:57 AM EDT Plan of Treatment Health Maintenance Due Date Last Done Comments CT Colonography 1965 Colonoscopy 1965 FIT 1965 HIV Screening 1965 Sigmoidoscopy 1965 Derm Melanoma Skin Check 1965 Diabetes: Foot Exam 1975 Hepatitis C Screening 1983 Hepatitis B Vaccines (1 of 3 - 19+ 3-dose series) 1984 Zoster Vaccines (1 of 2) 2015 DTaP/Tdap/Td Vaccines (2 - Td or Tdap) 05/21/2023 05/21/2013 FOBT 06/08/2024 06/08/2023 Influenza Vaccine (#1) 2025 4, 05/30/2023, 09/07/2022, Additional history exists Diabetes: Hemoglobin A1C 05/16/20252 025, 06/05/2024, 08/10/2023, Additional history exists Alcohol/Substance Use Screening 07/31/2025 07/31/2024 Lipid Panel 09/13/2025 09/13/2024, 04/28, 03/10/2022, Additional history exists SDOH Screening 11/13/2025 11/13/2024 Tobacco Screening 12/17/2025 12/17/2024 Eye Exam 12/19/2025 12/20/2023, 11/27, 12/20/2023, Additional history exists Depression Screening 03/05/2026 03/05/2025, 03/05/20 25 Diabetes: Urine Protein Screening 03/05/2026 03/05/2025, 04/23/2024, 02/01/2024, Additional history exists Disability Screening 03/05/2026 03/05/2025 Colorectal Cancer Screening [...] Procedure Name Priority Date/Time Associated Diagnosis Comments URINE PROTEIN, TOTAL, RANDOM (W/O CREATININE) Routine 03/05/2025 10:18 AM EDT CREATININE, RANDOM URINE Routine 03/05/2025 10:18 AM EDT BASIC METABOLIC PANEL Routine 03/05/2025 10:18 AM EDT URINALYSIS, COMPLETE Routine 03/05/2025 10:18 AM EDT CYTOPATH-CELL ENHANCED Routine 01/13/2025 5:04 PM EDT PSA, TOTAL WITH REFLEX TO PSA, FREE Routine 01/10/2025 9:00 AM EDT POCT GLYCATED HEMOGLOBIN, TOTAL Routine 11/13/2024 2:22 PM EDT Type 2 diabetes mellitus with hyperglycemia, without long-term current use of insulin ([facility]) LIPID PANEL, STANDARD Routine 09/13/2024 10:16 AM EST Class 3 severe obesity due to excess calories with serious comorbidity and body mass index (BMI) of 40.0 to 44.9 in adult ([facility]) LAB COLOGUARD COLON CANCER SCREEN Routine 06/08/2023 8:20 AM EDT Colon cancer screening from Last 3 Months or Most Recently Relevant to Health Maintenance Results * (ABNORMAL) Urine Protein, Total, Random without Creatinine (03/05/2025 10:18 AM EDT) Protein, Total, Random Urine 27(H) <12 mg/dL [facility] 03/05/2025 10:1 8 AM EDT 03/05/2025 12:04 PM EDT us Generic External Data Provider LAB URINE ORDERAB LES Final Result [facility] [address] [place] [phone] * Creatinine, Random Urine (03/05/2025 10:18 AM EDT) Creatinine, Urine 296.31 mg/dL [facility] 03/05/2025 10:1 8 AM EDT 03/05/2025 12:04 PM EDT us Generic External Data Provider LAB URINE ORDERAB LES Final Result Performing Organization Address [facility]/ZIP Co de Phone Number [facility] [address] [place] [phone] * (ABNORMAL) Urinalysis Complete (03/05/2025 10:18 AM EDT) Color Urine Dark Yellow [facility] Appearance Urine Turbid [facility] PH 6.0 5.0 - 9.0 [facility] Glucose Urine UA Negative Negative mg/dL [facility] Urine Blood Moderate (2+)(A) Negative [facility] Specific Squires - Urine 1.025 1.005 - 1.025 [facility] Urine Protein Trace Neg-Trace mg/dL [facility] Urine Ketones Negative Negative mg/dL [facility] Nitrite Urine Negative Negative [facility] Leukocyte Esterase Urine Negative Negative [facility] RBC Urine >20(A) 0 - 2 /HPF [facility] Urine WBC 0-5 0 - 5 /HPF [facility] Urine Squamous Epithelial Cell 0-2 0 - 2 /HPF [facility] Urine Bacteria None Seen None Seen [facility] Hyaline Casts, Urine 0-2 0 - 2 /LPF [facility] 03/05/2025 10:1 8 AM EDT 03/05/2025 12:04 PM EDT us Generic External Data Provider LAB URINE ORDERAB LES Final Result Performing Organization Address [facility]/ZIP Co de Phone Number [facility] [address] [place] [phone] * (ABNORMAL) Basic Metabolic Panel (03/05/2025 10:18 AM EDT) Sodium 140 135 - 145 mmol/L [facility] Potassium 4.0 3.3 - 5.1 mmol/L [facility] Chloride 107 96 - 108 mmol/L [facility] Carbon Dioxide 25 22 - 29 mmol/L [facility] Anion Gap 12 12 - 20 [facility] Urea Nitrogen (BUN) 17(H) 9 - 16 mg/dL [facility] Creatinine, Serum 0.79 0.5 - 1.4 mg/dL [facility] Estimated Glomerular Filt Rate >60 [facility] Comment:Chronic Kidney Disea se: Estimated GFR < 60 mL/min/1.06v8Uqkemy Kidney Disease: Estimated GFR < 15 mL/min/1.73m2 Glucose 98 60 - 115 mg/dL [facility] Calcium 9.1 8.4 - 10.2 mg/dL [facility] 03/05/2025 10:1 8 AM EDT 03/05/2025 12:00 PM EDT us Generic External Data Provider LAB BLOOD ORDERAB LES Final Result Performing Organization Address City/State/[facility] Co de Phone Number [facility] [address] [place] [phone] * Cytopath-cell enhanced (01/13/2025 5:04 PM EDT) 01/13/2025 5:04 PM EDT 01/14/2025 9:00 AM EDT Narrative [facility] - 01/16/2025 8:51 AM EDT ----- ------- Name: Silvestre Villalobos Age/Sex: 59/M : 1965 Unit#: [id number] Attend Dr: Pati Falcon MD Re01/13/25 Status: [facility] REF Location: [facility] Disch: ----- ------- SPEC : [id number] RECD: 01/14/25 STATUS: LUBNA EASTMAN NUM: [id number] NICK: 01/13/25-1703 [facility] DR: Pati Falcon MD ENTERED: 01/14/25 SP [...] is prepared. Copies To: Pati Falcon MD [facility] [address] [place] [address] [address] [place], [place] [phone] [email or web address] Aaliyah Roche MD [address] [phone] ----- ------- Signed (signature on file) Verito [place] 01/16/25 0851 ----- ------- END OF REPORT Generic External Data Provider LAB CYTOLOGY ORDE RABLES Final Result Performing Organization Address [facility] Co de Phone Number [facility] [address] [place] [address] [phone] * PSA, Total With Reflex to PSA, Free (01/10/2025 9:00 AM EDT) PSA,Total (Free>4and<10) 2.00 0.00 - 4.00 ng/mL [facility] Comment:A Free PSA was not [...] ORDERAB LES Final Result Performing Organization Address [facility] Co de Phone Number [facility] [address] [place] [address] [phone] * POCT HGB A1C (11/13/2024 2:22 PM EDT) Hemoglobin A1C 5.6 4.0 - 6.0 % QC Media Lot # [id number] Lot# Expiration Date ,818,195 Blood 11/13/2024 2:22 PM EDT us Aaliyah Hernandez MD POINT OF CARE TEST EN TER/EDIT ORDERABLES Final Result * (ABNORMAL) Lipid Panel, Standard (09/13/2024 10:16 AM EST) Triglycerides 209(H) <150 mg/dL [facility] Comment:Desirable Triglyceri de: less than 150 mg/dLBorderline High Triglyceride 150-199 mg/dLHigh Triglyceride: 200-499 mg/dLVery High Triglyceride: greater than or equal to 5OO mg/dL Cholesterol 212(H) <200 mg/dL [facility] Comment:Desirable Cholestero l: less than 200 mg/dLBorderline High Cholesterol: 200-239 mg/dLHigh Cholesterol: greater than 239 mg/dL LDL Cholesterol Calculated 140(H) <100 mg/dL [facility] Comment:Desirable LDL: less than 100 mg/dLNear Optimal/Above Optimal LDL: 110- 129 mg/dLBorderline High LDL: 130-159 mg/dLHigh LDL: 160-189 mg/dLVery High LDL: greater than or equal to 190 mg/dL HDL Cholesterol 31(L) >40 mg/dL [facility] Comment:Desirable HDL: great er than 40 mg/dL Note: This HDL assay may give artificially low results in patients with liver disease. Blood Venous blood specimen / Unknown 09/13/2024 10:16 AM EST 09/13/2024 11:30 AM EST us Aaliyah Hernandez MD LAB BLOOD ORDERABLES Final Result [facility] [address] [place] [phone] * Cologuard?? colon cancer screening (06/08/2023 8:20 AM EDT) Cologuard Result Negative Negative 06/15/20 4:38 AM EDT [facility] (CLIA #:[id number]) Comment: NEGATIVE TEST RESULT. A negative Cologuard [...] Matt et al, N Engl J Med 2014;370(14):5170-4125) The normal value (reference range) for this assay is negative. COLOGUARD RE-SCREENING RECOMMENDATION: Periodic colorectal cancer screening is an important part of preventive healthcare for asymptomatic individuals at average risk for colorectal cancer. Following a negative Cologuard result, the [place] [employer] Society and U.S. Multi-Society Task Force screening guidelines recommend a Cologuard re-screening interval of 3 years. References: [place] [employer] Guideline for Colorectal Cancer Screening: https://www.cancer.org/cancer/jnhuo-jhpppa-femrui/zqibuhkqz-saaewwvyt-yuzbrro/ac s-rec ommendations.html.; Ming DK, Branden CR, Doc MoraK, Colorectal Cancer Screening: Recommendations for Physicians and Patients from the U.S. Multi-Society Task Force on Colorectal Cancer Screening , Am J Gastroenterology 2017; 112:7481-4445. TEST DESCRIPTION: Composite algorithmic analysis of stool [...] (Terrance Ellison al, N Engl J Med 2014;370(14):5704-0345.) Cologuard may produce a false negative or false positive result (no colorectal cancer or precancerous polyp present at colonoscopy follow up). A negative Cologuard test result does not guarantee the absence of CRC or advanced adenoma (pre-cancer). The current Cologuard screening interval is every 3 years. ([place] [employer] Society and U.S. Multi-Society Task Force). Cologuard performance data in a 10,000 patient pivotal study using colonoscopy as the reference method can be accessed at the following location: www.[employer]/results. Additional description of the Cologuard test process, warnings and precautions can be found at www.[employer].com. Stool specimen (specimen) 06/08/2023 8:20 AM EDT 06/09/2023 3:33 PM EDT Aaliyah Hernandez MD LAB MOLECULAR DIAGNOS TICS ORDERABLES Final Result [facility] (CLIA #:[id number]) [address] [address], from Last 3 Months or Most Recently Relevant to Health Maintenance Insurance [facility] C3 Care Teams Director Geophysical Laboratory Relationship Specialty Start Date End Date Aaliyah Roche MD [address] [place] [phone] PCP - General Family Medicine 07/03/19
--- OUTSIDE RECORDS SUMMARY | 2025-03-20 13:06 | XMS_ITS | Clinical Summary ---
Author Organization [facility] Address [address] [place] [address] Phone Care Team Providers Care Director Toxicology Name Role Phone Aaliyah Ann MD Primary Care Provider Tyree Weber MD Unavailable [phone] Allergies Active Allergy Reactions Criticality Noted Date Comments Baclofen Rash Low 01/12/2009 Medications carvedilol (COREG) 25 MG tablet Take 25 mg by mouth 2 (two) times a day with meals. 2 tablets orally twice a day Active atorvastatin (LIPITOR) 40 MG tablet Take 40 mg by mouth daily. Active amLODIPine (NORVASC) 10 MG tablet Take 10 mg by mouth daily. Active pantoprazole (PROTONIX) 40 MG tablet Take 40 mg by mouth daily. Active isosorbide dinitrate (ISORDIL) 20 MG immediate release tablet Take 20 mg by mouth 2 (two) times a day. Active sucralfate (CARAFATE) 100 mg/mL suspension Take 1 g by mouth 2 (two) times a day. 10ml on an empty stomach orally twice a day Active Family History Medical History Relation Comments Depression Father Suicide Father Dementia Mother Diabetes Mother Heart disease Mother Dementia Sister 1 Relation Status Comments Father Mother Sister 1 Alive Sister 2 Social History Tobacco Use Types Packs/Day Years Used Date Smoking Tobacco: Former Education Answer Date Recorded Are you interested in more education? Not on portia e 12/23/2022 Are you concerned about learning? Not on file 12/23/2022 No 12/23/2022 No 12/23/2022 Digital Access Answer Date Recorded No 01/21/2023 No 01/21/2023 No 01/21/2023 Reliable internet access at home? Not on file 01/21/2023 Device with a working camera? Not on file Sex and Gender Information Value Date Recorded Sex Assigned at Male 04/29/2020 12:41 PM EDT Legal Sex Male 12:32 PM EDT Gender Identity Male 04/29/2020 12:41 PM EDT Sexual Orientation Straight 04/29/2020 12 :41 PM EDT Plan of Treatment Health Maintenance Due Date Last Done Comments LIPID PANEL 1965 DEPRESSION SCREENING 1977 SMOKING Hx and SMOKELESS TOB ACCO SCREENING 1978 HEPATITIS C SCREENING 1983 HIV ONE-TIME SCREENING (18-6 5 YEARS) 1983 COLOGUARD 2010 COLONOSCOPY 2010 COLORECTAL CANCER SCREENING 2010 FIT TEST 2010 FOBT 2010 SIGMOIDOSCOPY 2010 VIRTUAL COLONOSCOPY 2010 ZOSTER VACCINES (1 of 2) 2015 PNEUMOCOCCAL VACCINES (50+ y ears) (2 of 2 - PCV) 05/01/2016 05/01/2015 Adult Td,Tdap Booster 05/21/2023 05/21/2013 COVID-19 VACCINE (2 - 2023-2 5 season) 2024 12/23/2020 HEPATITIS A VACCINES Aged Out No long er eligible based on patient's age to complete this topic HIB VACCINES Aged Out No longer eligi ble based on patient's age to complete this topic MENINGOCOCCAL VACCINES (ACWY) Aged Out No longer eligible based on patient's age to complete this topic MENINGOCOCCAL VACCINES (B) Aged Out N o longer eligible based on patient's age to complete this topic Medical Devices Not on file Insurance [facility] C3 ACO [facility] C3 ACO Care Teams Director Toxicology Relationship Specialty Start Date End Date Aaliyah Ann MD [address] [place] [phone] PCP - General Internal Medicine 04/29/20 Tyree Weber MD [address] [place] [phone] Emergency Medicine Physician Cardiology 05/28/20 Additional Source Comments The information contained in this document represents components of the legal health record. It is not the complete legal health record.[facility]
== END 2025-03-20 13:15 | disposition home or self-care (01) ==
LOC: HO.PMC 12:54
PROVIDERS: PCP Internal Medicine; Visit Provider Nurse Practitioner Family
DX: M47.816 Spondylosis without myelopathy or radiculopathy, lumbar region (principal); M53.3 Sacrococcygeal disorders, not elsewhere classified; G89.29 Other chronic pain; M16.11 Unilateral primary osteoarthritis, right hip
CPT/HCPCS: 99213

== ENCOUNTER → 2025-03-20 12:54 | Outpatient (BNVA) | payer MEDICAID, SELFPAY | PROVIDERS: PCP Internal Medicine; Visit Provider Nurse Practitioner Family | DX: M47.816 Spondylosis without myelopathy or radiculopathy, lumbar region (principal); M53.3 Sacrococcygeal disorders, not elsewhere classified; G89.29 Other chronic pain; M16.11 Unilateral primary osteoarthritis, right hip | CPT/HCPCS: 99212 ==

== ENCOUNTER 2025-03-24 11:13 | Outpatient (AMB) | payer MEDICAID, SELFPAY ==
[2025-03-24 11:16] VITALS: BP 126/68; PULSE 77; O2SAT 94; BMI 36.3
--- NOTE | 2025-03-24 11:16 | HO.NEPHOV_ITS ---
Vital Signs 03/24/25 11:16 Height 5 ft 10 in Weight 253 lb BMI 36.3 BP 126/68 Blood Pressure Location Rt brachial Position Sitting Pulse 77 Pulse Source Pulse Oximeter Pulse Oximetry (%) 94 Oxygen Delivery Method Room Air Intake Visit Reasons: Hypertension-Conf Dispensing And Measuring Optician Required: No Allergies duloxetine Allergy (Severe, Verified 03/24/25 11:18) Nightmare baclofen (BACLOFEN) Allergy (Intermediate, Verified 03/24/25 11:18) RASH Medication List - Last Reconciled 03/24/25 by Gianni Chatman MD albuterol sulfate 90 mcg/actuation (Ventolin HFA) 2 puffs inhalation Q6H alfuzosin ER 10 mg PO DAILY amlodipine 10 mg PO DAILY aspirin (Adult Aspirin Regimen) 81 mg PO DAILY atorvastatin 40 mg PO BEDTIME budesonide-formoterol 160-4.5 mcg/actuation (Symbicort) inhalation carvedilol (Coreg) 25 mg PO BID doxycycline hyclate 100 mg PO BID lansoprazole 30 mg PO BID lisinopril 20 mg PO QAM naloxone 4 mg/actuation (Narcan) 4 mg intranasal Q2M PRN pravastatin 20 mg PO DAILY sucralfate (Carafate) 10 mL PO QID PRN tadalafil (Cialis) 5 mg PO DAILY tirzepatide (weight loss) (Zepbound) 5 mg subcut QWEEK tramadol 50 mg PO BID PRN 15 days HPI Comments Details: Vitaly Rivers is a pleasant 58-year-old man with a history of obesity, hypertension who was found to have proteinuria by dipstick. He has been referred for the evaluation of proteinuria. He has a history of chronic back pain. MRI in 2022 showed mild to moderate lumbar spondylosis. No severe central canal stenosis or foraminal stenosis within the lumbar spine. He is being seen by pain management. He is on Lyrica. In addition he is also on ibuprofen 200 mg 3 times a day. Silvestre has a history of hypertension. He is on amlodipine 10 mg, carvedilol 25 mg b.i.d. and lisinopril 40 mg q.d.. After taking his medications he feels washed out. Today he has not taken his medications yet. However blood pressure was 118 /66 Renal function has been stable with a creatinine 0.71 in 06/16/2023. Urinalysis showed trace protein. No blood. Renal ultrasonogram was unremarkable. He has a history of aortic dissection. Type B aortic dissection status post interval stent graft repair.(2020). Being followed by Dr. Marino In 2020 CTA showed patent renal arteries on both sides without stenosis 02/01/2024. Underwent a 24 hour ABPM 04/25/24 Doing OK;Was in ER for chest pain/back pain ;Seen by cardiology 09/23/24 Still with back pain - on and off CT scan on 09/14/24 - normal kidneys s/p EGD 03/24/25 REcently treated with Doxycyclin for skin infection PFSH Medical History Peripheral vascular disease Morbid obesity Sacroiliac joint dysfunction of right side Sacroiliitis HTN (hypertension) Descending thoracic aortic dissection Ascending aortic aneurysm Leg edema SOB (shortness of breath) Peptic ulcer disease Back pain Anxiety Hx of lipoma Constipation Esophagitis Sacroiliac joint pain Sacroiliitis Hypercholesteremia GERD (gastroesophageal reflux disease) Fatty liver VALERY (obstructive sleep apnea) Pulmonary hypertension Anemia Surgical History Status post excision of lipoma (~08/01/23) Hx of surgical procedure (06/19/23) Hx of repair of dissecting thoracic aortic aneurysm, Alexander type B Hx of colonoscopy History of esophagogastroduodenoscopy (EGD) History of carpal tunnel release of both wrists History of arthroscopy of both knees Hx of cholecystectomy Family History Father Depression Suicide Mother Diabetes Dementia Heart problem Sister Dementia, Onset Age: 73 Sister No problems noted. Brother No problems noted. Family/Other No problems noted. Social History Alcohol intake: former Patient Tobacco Use Status: Current someday Tobacco user Years Smoked: 30 +/- Physical Exam Vital Signs: BMI result Body Mass Index 36.3 Comfortable Neck supple no JVD. Lungs entry equal no rales. Heart S1-S2 heard no gallop or rub. Abdomen soft nontender. Neuro alert awake oriented. No asterixis. Extremities no edema. Results Reviewed Nephrology Results: Sodium, (135-145) 140 mmol/L 03/05/25 Potassium, (3.3-5.1) 4.0 mmol/L 03/05/25 Chloride, (96-108) 107 mmol/L 03/05/25 Carbon Dioxide, (22-29) 25 mmol/L 03/05/25 BUN, (9-16) 17 mg/dL H 03/05/25 Creatinine, (0.5-1.4) 0.79 mg/dL 03/05/25 Calcium, (8.4-10.2) 9.1 mg/dL 03/05/25 Urine Protein, (Neg-Trace) Trace mg/dL 03/05/25 Urine Creatinine 296.31 mg/dL 03/05/25 Assessment & Plan Assessment & Plan (1) Proteinuria: Code(s): R80.9 - Proteinuria, unspecified Category: Medical (2) HTN (hypertension): Code(s): I10 - Essential (primary) hypertension Category: Medical (3) Microscopic hematuria: Code(s): R31.29 - Other microscopic hematuria Category: Medical Plan: Being followed by Urology Plan . Silvestre is a 59-year-old man with obesity and hypertension with minimal proteinuria. Proteinuria can be related to both hypertensive kidney disease as well as obesity. Urine sediments our plan therefore glomerular nephritis seems unlikely. He has minimal proteinuria with a urine protein creatinine ratio of 0.125. He will benefit from weight loss. Blood pressure needs to be maintained less than 130/80. History of hypertension in a setting obesity. 24 hour ABP and was reviewed. He has been taking Coreg 25 mg 2 tabs b.i.d.. I will switch to 20 mg b.i.d.. Switched lisinopril 40 mg from q.a.m. to q.p.m.. By spacing out the antihypertensives we should be able to avoid hypotensive episodes. Monitor BP at home Chronic low back pain. Follow up with pain clinic. He is on ibuprofen 800 mg 3 times a day. He is at high risk for [facility] due to the combination of high dose of NSAIDs and lisinopril. Since he is unable to discontinue ibuprofen , we might have to discontinue lisinopril and use alternate antihypertensive agents if the serum creatinine increases. Microhematuria- Serology negative h/o BPH- follows with Orders: Orders Creatinine Urine 6 Months I10 - Essential (primary) hypertension UA and rflx microscopic 6 Months I10 - Essential (primary) hypertension Basic Metabolic Panel 6 Months I10 - Essential (primary) hypertension Total Protein Urine Random 6 Months I10 - Essential (primary) hypertension Coding Level of Care Code Est Pt Level 4 (02344) Diagnoses Proteinuria R80.9 HTN (hypertension) I10 Microscopic hematuria R31.29
--- OUTSIDE RECORDS SUMMARY | 2025-03-24 12:30 | XMS_ITS | Clinical Summary ---
Author Organization [address] [facility] Address [address] [place] [address] Phone Care Team Providers Care Electrician Helper Powerhouse Name Role Phone Aaliyah Roche MD Primary Care Provide r Allergies Active Allergy Reactions Criticality Noted Date Comments Baclofen Rash 01/12/2009 Medications AMLODIPINE-ATOR VASTATIN ORAL Take by mouth. Active CARVEDILOL ORAL Take by mouth. Active LISINOPRIL ORAL Take by mouth. Active trazodone HCl (TRAZODONE ORAL) Take by mouth. Active predniSONE (DELTASONE) 10 mg tablet Take 1 tablet (10 mg total) by mouth 1 (one) time each day. Active tirzepatide, weight loss, (Zepbound) 7.5 mg/0.5 mL injection Inject 0.5 mL (7.5 mg total) under the skin every 7 (seven) days. 2 mL 5 Active tirzepatide, weight loss, (Zepbound) 5 mg/0.5 mL injection Inject 0.5 mL (5 mg total) under the skin every 7 (seven) days. 2 mL 5 03/13/20 25 Discontinued Hospital, Clinic, or Other Facility Administered Medication Ordered Dose Route Frequency Start Date End Date Status lidocaine (PF) (XYLOCAINE-MPF) 1 % injection 0.5 mLIndications:Hallux rigidus of right foot .5 mL inj Once PRN Procedure 03/18/2025 03/18/2025 Ended triamcinolone acetonide (KENALOG-40) 40 mg/mL injection 20 mgIndications:Hallux rigidus of right foot 20 mg IAtc Once PRN Procedure 03/18/2025 03/18/2025 Ended Active Problems Problem Noted Date Diagnosed Date Class 3 severe obesity with body mass index (BMI) of 40.0 to 44.9 in adult ([facility] V24, [facility] V28) 06/11/2024 Obstructive sleep apnea 11/09/2020 Overview (06/11/2024[place] [facility] [place]ysomnogram Date 08/12/2019. Wt 273#; BMI 39. AHI 46; Obstructive apneas 40; Mixed apneas 0; Central apneas 1; Hypopneas 168; average oxygen saturation 92% (lowest 86%). - Obstructive Sleep Apnea - Severe; mostly Hypopneas and obstructive apneas; without sleep related hypoventilation by 2020 split night polysomnogram. Pure hypercholesterolemia 02/05/2016 Class 2 severe obesity due t o excess calories with serious comorbidity and body mass index (BMI) of 36.0 to 36.9 in adult ([facility] V24, [facility] V28) 01/29/2016 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 Overview (06/11/2024): 4.2cm dilatation of the ascending thoracic aorta on cardiac MRI serial echo yearly as per cardiology Chronic pain 05/21/2014 Benign prostatic hyperplasia 10/24/2013 Multiple lipomas 07/04/2011 Degenerative arthritis of lumbar spine 1 Radiculitis, lumbosacral 10/20/2010 Hyperlipidemia 01/12/2009 Tobacco use disorder 01/05/2009 Atypical chest pain 05/02/2008 Overview (06/11/2024): Neg cardiac w/u and cta HH 04/2015 [facility] / nuclear stress done Encounters Date Type Department Care Team Description 03/18/2025 10:15 AM EDT Consult Orthopedic Surgery - [place] [address] [facility] [address] [place] [id number] Venkata Mejia, DPM Hallux rigidus of right foot (Primary Dx); Type 2 diabetes mellitus with hyperglycemia ([facility] V24, [facility] V28); Acquired hallux valgus of right foot 03/13/2025 2:15 PM EDT Office Visit Bariatric Surgery [facility] [address] [facility] [address] [place] [address] Francesca Bermudez PA Class 2 severe obesity due to excess calories with serious comorbidity and body mass index (BMI) of 36.0 to 36.9 in adult ([facility] V24, [facility] V28) (Primary Dx) 02/21/2025 10:00 AM EDT Nutrition Bariatric Surgery - [address] [place] [address] Class 2 severe obesity with serious comorbidity and body mass index (BMI) of 37.0 to 37.9 in adult, unspecified obesity type ([facility] V24, [facility] V28) (Primary Dx) from Last 3 Months Immunizations [...] PROCEDURE: HISTORICAL BLADDER SURGERY ESOPHAGOGASTRODUODENOSCOPY 09/24/15 PROCEDURE: LA ESOPHAGOGASTRODUODENOSCOPY TRANSORAL DIAGNOSTIC; COMMENT: Duodenitis, otherwise normal [...] Comments Brother 1 Brother 2 Alive HTN, [place] at 55 y o Brother 3 mi [...] Sign Reading Time Taken Comments Blood Pressure 130/75 03/13/2025 2:08 PM EDT Pulse 65 03/13/2025 2:08 PM EDT Temperature - - Respiratory Rate - - Oxygen Saturation - - Inhaled Oxygen Concentration - - Weight 116 kg (255 lb) 03/18/2025 10:45 AM EDT Height 177.8 cm (5' 10 ) 03/13/2025 2:08 PM EDT Body Mass Index 36.59 03/13/2025 2:08 PM EDT Plan of Treatment Upcoming Encounters Date Type Department Care Team (Late st Contact Info) Description 05/01/2025 1:15 PM EDT Office Visit Orthopedic Surgery [facility] [address] [phone] Venkata Mejia DPM [address] [address] 05/20/2025 10:00 AM EDT Nutrition Bariatric Surgery - [place] [address] [facility] [address] [place] [address] Katty Stewart, RD [address] [facility] [address] [place] [address] Health Maintenance Due Date Last Done Comments [...] Diabetes: Annual Urine Albumin-Creatinine Ratio (uACR) 07/23/2024 Depression Screening 08/28/2024 Influenza Vaccine (#1) 2025 , 05/30/2023, 09/07/2022, Additional history exists Diabetes: Blood Sugar Control Test (HGBA1C) 05/16/2025 11/13/2024, 06/05/2024, 12/30/2015 Diabetes: Annual GFR (Glomerular Filtration Rate) 03/05/2026 03/05/2025, 09/13/2024, 04/23/2024, Additional history exists Hypertension/CHF/CAD Annual BMP Blood Test 03/05/2026 03/05/2025, 09/13/2024, 04/23/2024, Additional history exists Colorectal Cancer Screening: FIT-DNA (Cologuard) 06/08/2026 06/08/2023 [...] Procedure Name Priority Date/Time Associated Diagnosis Comments INJECTION TENDON OR LIGAMENT Routine 03/18/2025 10:15 AM EDT Hallux rigidus of right foot ANNUAL BMP BLOOD TEST Routine 03/24/2016 LIPID PANEL Routine 03/24/2016 HEMOGLOBIN A1C Routine 12/30/2015 HEPATITIS C SCREENING Routine 05/25/2013 HIV SCREENING Routine 05/25/2013 from Last 3 Months or Most Recently Relevant to Health Maintenance Results * Injection tendon or ligament (03/18/2025 10:15 AM EDT) Narrative Venkata Mejia DPM - 03/18/2025 10:15 AM EDT Venkata Mejia DPM 03/18/2025 12:24 PM Injection tendon or ligament Indications: pain Details: 25 G needle Medications: 0.5 mL lidocaine (PF) 1 %; 20 mg triamcinolone acetonide 40 mg/mL Informed Consent: Site: Foot ligament tendon Venkata Mejia DPM IN CLINIC/BEDSIDE ORDERAB LES Final Result * Annual BMP Blood Test (03/24/2016) Annual BMP Blood Test abstracted Historical Provider MD HEALTH MAINTENANCE Final Result * (ABNORMAL) Lipid panel (03/24/2016) Pathologist [facility] LDL/HDL Ratio 5(A) 0 - 4 Triglycerides 257(A) 0 - 150 mg/dL Cholesterol 187 0 - 200 mg/dL HDL 38(A) >=40 mg/dL LDL Cholesterol 98 0 - 100 mg/dL Blood Venous blood specimen / Unknown Result [facility] Provider LAB BLOOD ORDERABLES Delisa l Result * Hemoglobin A1c (12/30/2015) Pathologist [facility] Hemoglobin A1C 5.6 4.0 - 6.0 % Blood Venous blood specimen / Unknown Result [facility] Provider LAB BLOOD ORDERABLES Delisa l Result * HIV Screening (05/25/2013) Pathologist [facility] HIV Screening abstracted Result [facility] Provider HEALTH MAINTENANCE Final Result * Hepatitis C Screening (05/25/2013) Pathologist [facility] Hepatitis C Screening abstracted Result [facility] Provider HEALTH MAINTENANCE Final Result from Last 3 Months or Most Recently Relevant to Health Maintenance Insurance MEDICAID - [place] Care Teams Electrician [employer]per [employer] Relationship Specialty Start Date End Date Aaliyah Roche MD [address] [place] [phone] PCP - General Internal Medicine 08/24/21
--- OUTSIDE RECORDS SUMMARY | 2025-03-24 12:30 | XMS_ITS | Clinical Summary ---
Author Organization [facility] Address [address] [place] [address] Care Team Providers Care Sheather Name Role Phone Sabra Lim Primary Care [...] (1 - 1-dose 75+ series) 2040 Insurance [employer] Care Teams Sheather Relationship Specialty Start Date End Date Sabra Lim [address] [place] [address] [place] [id number] PCP - General 09/04/20
--- OUTSIDE RECORDS SUMMARY | 2025-03-24 12:30 | XMS_ITS | Encounter Summary ---
Author Organization [facility] Address [address] [place] [address] Care Team Providers Care Public Works Director Name Role Phone Name, Handy ALCANTAR Primary Care Provider Jung Nur MD Primary Care Provider [phone] Aaliyah Ann MD Primary Care Provide r Unavailable Encounter Details Date Type Department Care Team Description 06/16/2015 Back Hoe Machine Operator Report Medical Records [address] [place] [id number] Abstract, Provider Social History Tobacco Use Types [...] on filedocumented in this encounter Care Teams Public Works Director Relationship Specialty Start Date End Date Name, MD Handy PCP - General 08/11/09 09/09/15 Jung Almeida MD [address] [place] [id number] PCP - General Internal Medicine 09/10/15 08/23/21 Aaliyah Ann MD [address] [place] [phone] PCP - General Internal Medicine 08/24/21 documented as of this encounter
--- OUTSIDE RECORDS SUMMARY | 2025-03-24 12:30 | XMS_ITS | Clinical Summary ---
Author Organization [facility] Address [address] [place] [address] Phone Care Team Providers Care Staff Air Tactical Officer Name Role Phone Aaliyah Ann MD Primary Care Provider Tyree Weber MD Unavailable [phone] Allergies Active Allergy Reactions Criticality Noted Date [...] topic Medical Devices Not on file Insurance [facility] C3 ACO [facility] C3 ACO Care Teams Staff Air Tactical Officer Relationship Specialty Start Date End Date Aaliyah Ann MD [address] [place] [phone] PCP - General Internal Medicine 04/29/20 Tyree Weber MD [address] [place] [phone] Records Management Clerk Cardiology 05/28/20 Additional Source Comments The information contained in this document represents components of the legal health record. It is not the complete legal health record.[facility]
== END 2025-03-24 11:26 | disposition home or self-care (01) ==
LOC: HO.HKA 11:14
PROVIDERS: PCP Internal Medicine; Visit Provider Internal Medicine Hypertension Specialist
DX: R80.9 Proteinuria, unspecified (principal); I10 Essential (primary) hypertension; R31.29 Other microscopic hematuria
CPT/HCPCS: 99214

== ENCOUNTER → 2025-03-24 11:13 | Outpatient (BNVA) | payer MEDICAID, SELFPAY | PROVIDERS: PCP Internal Medicine; Visit Provider Internal Medicine Hypertension Specialist | DX: I10 Essential (primary) hypertension (principal); R80.9 Proteinuria, unspecified; R31.29 Other microscopic hematuria | CPT/HCPCS: 99212 ==

== ENCOUNTER 2025-03-29 14:40 | Emergency (ER) | payer MEDICAID, SELFPAY ==
--- NOTE | ~2025-03-29 | XR_ITS ---
CLINICAL HISTORY: lifting injury, loud crack, pain 3 views left shoulder Comparison: None Findings: No fractures or dislocations No significant arthritic change No radiopaque foreign body. There is soft tissue calcification in the posterior margin of the acromion extending to the acromial humeral interval. There is acromioclavicular arthropathy. Glenohumeral joint is in good alignment. Normal visualized left chest Impression: Soft tissue calcification/osteophyte extending from the acromion to the posterior aspect of the acromial humeral interval. No acute skeletal abnormality. This document has been electronically signed by: Juan Diego Long MD on 03/29/2025 16:37:07
[2025-03-29 15:17] VITALS: BP 127/68; PULSE 90; RESP 17; TEMP 36.9; O2SAT 98; BMI 35.7
--- NOTE | 2025-03-29 15:18 | ED_ITS ---
HPI - Extremity Injury (Upper) General Chief Complaint: Extremity Injury, Upper Stated Complaint: l shoulder pain Time Seen by Provider: 03/29/25 15:39 Source: patient Mode of arrival: ambulatory Limitations: no limitations History of Present Illness ED Provider: DR. Russo HPI narrative: 59-year-old male right handed came in for evaluation of left shoulder pain after with trying to lift a 5 lb bucket 3 hours ago, patient immediately felt popping sensation and snapping sound from the left shoulder, complaining of left shoulder pain, and left-sided neck pain. No fall. Related Data Home Medications ?Medication ?Instructions ?Recorded ?Confirmed atorvastatin 40 mg tablet 40 mg PO BEDTIME 05/27/20 carvedilol 25 mg tablet (Coreg) 25 mg PO BID 05/27/20 03/24/25 aspirin 81 mg tablet,delayed 81 mg PO DAILY 08/31/21 0 03/24/25 release (Adult Aspirin Regimen) amlodipine 10 mg tablet 10 mg PO DAILY 06/10/2202/26 budesonide-formoterol HFA 160 inhalation 12/23/2202/26 mcg-4.5 mcg/actuation aerosol inhaler (Symbicort) albuterol sulfate 90 mcg/actuation 2 puff inhalation Q 6H 05/18/23 03/24/25 aerosol inhaler (Ventolin HFA) lisinopril 20 mg tablet 20 mg PO QAM 09/20/24 pravastatin 20 mg tablet 20 mg PO DAILY 01/16/2502/26 tirzepatide (weight loss) 5 mg/0.5 5 mg subcut QWEEK 0 03/20/25 03/24/25 mL subcutaneous pen injector (Zepbound) doxycycline hyclate 100 mg capsule 100 mg PO BID 03/2403/24/25 Previous Rx's ?Medication ?Instructions ?Recorded sucralfate 100 mg/mL oral 10 ml PO QID PRN indigestion #200 09/14/24 suspension (Carafate) mL lansoprazole 30 mg capsule,delayed 30 mg PO BID #90 ca ps 11/19/24 release alfuzosin 10 mg tablet,extended 10 mg PO DAILY #90 tab s 01/13/25 release 24 hr tadalafil 5 mg tablet (Cialis) 5 mg PO DAILY #30 tabs 01/13/25 naloxone 4 mg/actuation nasal 4 mg intranasal Q2M PRN opioid 01/16/25 spray (Narcan) overdose #2 ea tramadol 50 mg tablet 50 mg PO BID PRN pain (scale score 01/16/25 7-10) 15 days #30 tabs ibuprofen 800 mg tablet 800 mg PO Q8H PRN pain #10 t abs 03/29/25 Allergies Allergy/AdvReac Type Severity Reaction Status Date / Time duloxetine Allergy Severe Nightmare Verified 03/29/25 15:20 baclofen (BACLOFEN) Allergy Intermediate RASH Verified 03/29/25 15:20 Review of Systems Review of Systems: all other systems are reviewed and are negative Constitutional: Reports as per HPI and Reports no additional constitutional complaints Eyes: Reports as per HPI and Reports no additional eye complaints Reports system reviewed and no additional complaints, except as documented Cardiovascular: Reports as per HPI and Reports no additional cardiovascular complaints Respiratory: Reports as per HPI and Reports no additional respiratory complaints Gastrointestinal: Reports as per HPI and Reports no additional gastrointestinal complaints Genitourinary: Reports no additional female genitourinary complaints Musculoskeletal: Reports no additional musculoskeletal complaints Skin/Breast: Reports system reviewed and no additional complaints, except as docu Psychiatric: Reports no additional psychiatric complaints Endocrine: Reports no additional endocrine complaints Hematologic/Lymphatic: Reports no additional hematologic/lymphatic complaints Allergic/Immunologic: Reports no additional allergic/immunologic complaints Reports system reviewed and no additional complaints, except as documented and Reports Abnormal speech present [facility] Past Medical History Medical History Peripheral vascular disease Morbid obesity Sacroiliac joint dysfunction of right side Sacroiliitis HTN (hypertension) Descending thoracic aortic dissection Ascending aortic aneurysm Leg edema SOB (shortness of breath) Peptic ulcer disease Back pain Anxiety Hx of lipoma Constipation Esophagitis Sacroiliac joint pain Sacroiliitis Hypercholesteremia GERD (gastroesophageal reflux disease) Fatty liver VALERY (obstructive sleep apnea) Pulmonary hypertension Anemia Surgical History Status post excision of lipoma (~08/01/23) Hx of surgical procedure (06/19/23) Hx of repair of dissecting thoracic aortic aneurysm, Alexander type B Hx of colonoscopy History of esophagogastroduodenoscopy (EGD) History of carpal tunnel release of both wrists History of arthroscopy of both knees Hx of cholecystectomy Family History Family History Father Depression Suicide Mother Diabetes Dementia Heart problem Sister Dementia, Onset Age: 73 Sister No problems noted. Brother No problems noted. Family/Other No problems noted. Social History Social History Alcohol intake: former Patient Tobacco Use Status: Current someday Tobacco user Years Smoked: 30 +/- Advance Directives: No Advance Directives Information Provided: No Do you have a plan to hurt others: No Plan Physical Exam Vital Signs: Vital Signs: Last Vital Signs Temp 98 F 03/29/25 16:48 Pulse 73 03/29/25 16:48 Resp 18 03/29/25 16:48 BP 147/78 H 03/29/25 16:48 Pulse Ox 96 03/29/25 16:48 O2 Del Method Room Air 03/29/25 16:48 BMI result Body Mass Index 35.7 Vital signs have been reviewed and appear to be correct. Blood pressure elevated. Heart rate normal. Respiratory rate normal. Temperature normal. Oxygen saturation normal. Appearance: Alert. Oriented X3. No acute distress. Head: Normal external exam. Normocephalic. Atraumatic. No King signs noted. No raccoon eyes noted Eyes: PERRLA. EOMI. Conjunctiva and sclera normal. Eyelids normal. ENT: TM's Normal. Pharynx normal. Uvula midline. Moist mucous membranes. No trismus noted. No drooling noted. No muffled voice noted. Neck: Normal inspection. Neck supple. FROM. No adenopathy. Thyroid Normal. No meningeal signs. No neck mass noted. CVS: Normal heart rate and rhythm. Heart sound normal. No murmurs noted. Pulses normal throughout. Respiratory: No respiratory distress. Painless inspiration. Breath sounds normal. No wheezes/rales/rhonchi noted. Chest nontender. No accessory muscle usage noted or decreased air movement noted. Abdomen: Soft and nontender. Bowel sounds normal in all 4 quadrants. No distention noted. No organomegaly noted. No visible injury noted. Back: No CVA tenderness. Full range of motion noted. Skin: Skin warm and dry. Normal skin color. Normal skin turgor. No rashes/lesions/lacerations noted. Extremities: left shoulder exam: Held in adduction position, limited abduction secondary to pain, no deformity, no anterior fullness, neurovascularly intact. Neuro: Oriented X 3. Cranial nerve exam: II-XII are grossly intact No motor deficit. No sensory deficit. Reflexes normal. Course Course Course Narrative: This is an RME performed by Meche Palmer CNP: Additional HPI, ROS, PE not included below will be deferred to primary provider. Patient is a 59-year-old male who presents emergency department for evaluation, Reports 3 hours prior to arrival went to lift a 5 lb bucket felt a sudden cracking sensation in the shoulder with severe pain. Denying any numbness or tingling to the extremity. Plan: XR of the left shoulder Reevaluation(s) Reevaluation #1: patient feels better after pain medication, x-ray is showing no fracture or dislocation. Start shoulder immobilization, NSAIDs, follow-up with ortho. Time: 17:13 Medications Administered Discontinued Medications Generic Name Dose Route Start Last Admin Trade Name Freq PRN Reason Stop Dose Admin Ibuprofen 600 mg 03/29/25 15:55 03/29/25 16:05 Ibuprofen 600 Mg Tablet PO 03/29/25 15:56 600 mg ONCE ONE Administration Oxycodone HCl 5 mg 03/29/25 15:55 03/29/25 16:05 Oxycodone Hcl Immed Release 5 Mg Tablet PO 03/29/25 15:56 5 mg ONCE ONE Administration Medical Decision Making Differential Diagnosis Differential Diagnoses: The differential diagnosis associated with the presentat ion includes ( Left shoulder dislocation, left shoulder fracture, rotator cuff tendon tear) Admission/Observation Consideration of admission/observation: Escalation of care including admission/observation considered Independent Interpretation I performed an independent interpretation of an: Plain X-Ray ( left shoulder:Soft tissue calcification/osteophyte extending from the acromion to the posterior aspect of the acromial humeral interval. No acute skeletal abnormality.) Radiology Impression Discussion of test interpretation with radiology: I have reviewed the radiologist's reading. Discharge Plan Discharge Clinical Impression: Injury of muscle or tendon of left rotator cuff Patient Disposition: Home, Self-Care Instructions: Rotator Cuff Injury (ED) Prescriptions: New ibuprofen 800 mg tablet 800 mg PO Q8H PRN (Reason: pain) Qty: 10 0RF No Action lansoprazole 30 mg capsule,delayed release(DR/EC) 30 mg PO BID Qty: 90 2RF atorvastatin 40 mg Tablet 40 mg PO BEDTIME carvedilol [Coreg] 25 mg Tablet 25 mg PO BID sucralfate [Carafate] 100 mg/mL suspension 10 ml PO QID PRN (Reason: indigestion) Qty: 200 0RF Rx Instructions: swish in mouth and swallow; use after food/drink aspirin [Adult Aspirin Regimen] 81 mg tablet,delayed release (DR/EC) 81 mg PO DAILY amlodipine 10 mg tablet 10 mg PO DAILY budesonide-formoterol [Symbicort] 160-4.5 mcg/actuation HFA aerosol inhaler inhalation albuterol sulfate [Ventolin HFA] 90 mcg/actuation HFA aerosol inhaler 2 puff inhalation Q6H tadalafil [Cialis] 5 mg tablet 5 mg PO DAILY Qty: 30 5RF Rx Instructions: [id number] [facility] [id number] Member [id number] alfuzosin 10 mg tablet extended release 24 hr 10 mg PO DAILY Qty: 90 3RF Rx Instructions: administer after the same meal each day pravastatin 20 mg tablet 20 mg PO DAILY tramadol 50 mg tablet 50 mg PO BID PRN (Reason: pain (scale score 7-10)) 15 Days Qty: 30 0RF naloxone [Narcan] 4 mg/actuation spray,non-aerosol 4 mg intranasal Q2M PRN (Reason: opioid overdose) Qty: 2 0RF Rx Instructions: spray 1 dose into ONE nostril; alternate nostrils w each dose until help arrives lisinopril 20 mg tablet 20 mg PO QAM doxycycline hyclate 100 mg capsule 100 mg PO BID Zepbound 5 mg/0.5 mL pen injector 5 mg subcut QWEEK Referrals: Aaliyah Roche MD [Primary Care Provider, Internal Medicine] Biju Taveras MD [Physician, Orthopedics] Print Language: Pashto
[2025-03-29] MEDS: oxyCODONE HCl Immed Release 5 MG TABLET PO (16:05)
--- OUTSIDE RECORDS SUMMARY | 2025-03-29 16:12 | XMS_ITS | Clinical Summary ---
Author Organization [facility] Address [address] [place] [address] Care Team Providers Care Cloth Bolt Bander Name Role Phone Sabra Lim Primary Care Provider [phone] Allergies Active Allergy Reactions Criticality Noted Date [...] (1 - 1-dose 75+ series) 2040 Insurance [email or web address] Care Teams Cloth Bolt Bander Relationship Specialty Start Date End Date Sabra Lim [address] [place] [address] [place] [id number] PCP - General 09/04/20
--- OUTSIDE RECORDS SUMMARY | 2025-03-29 16:12 | XMS_ITS | Clinical Summary ---
Author Organization [facility] Address [address] [place] [address] Phone Care Team Providers Care Car Worker Name Role Phone Aaliyah Roche MD Primary Care Provider Tyree Weber MD Unavailable [phone] Allergies Active Allergy Reactions Criticality Noted Date [...] topic Medical Devices Not on [place] [address] [place] [address] C3 ACO [facility] C3 ACO Care Teams Car Worker Relationship Specialty Start Date End Date Aaliyah Roche MD [address] [place] [id number] PCP - General Internal Medicine 04/29/20 Tyree Weber MD [address] [place] [id number] Sales[employer] Cardiology 05/28/20 Additional Source Comments The information contained in this document represents components of the legal health record. It is not the complete legal health record.[facility]
--- OUTSIDE RECORDS SUMMARY | 2025-03-29 16:12 | XMS_ITS | Clinical Summary ---
Author Organization [address] [facility] Address [address] [place] [address] Phone Care Team Providers Care Strategic Marketing Specialist Name Role Phone Aaliyah Roche MD Primary [...] (BMI) of 40.0 to 44.9 in adult ([facility] V24, [facility] V28) 06/11/2024 Obstructive sleep apnea 11/09/2020 Overview (06/11/2024): [facility] Polysomnogram Date 08/12/2019. Wt 273#; BMI 39. [...] (BMI) of 36.0 to 36.9 in adult ([facility] V24, [facility] V28) 01/29/2016 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 Overview (06/11/2024): 4.2cm dilatation of the ascending thoracic aorta on cardiac MRI serial echo yearly as per cardiology Chronic pain 05/21/2014 Benign prostatic hyperplasia 10/24/2013 Multiple lipomas 07/04/2011 Degenerative arthritis of lumbar spine 1 Radiculitis, lumbosacral 10/20/2010 Hyperlipidemia 01/12/2009 Tobacco use disorder 01/05/2009 Atypical chest pain 05/02/2008 Overview (06/11/2024): Neg cardiac w/u and cta HH 04/2015 [facility] / nuclear stress done Encounters Date Type Department Care Team Description 03/18/2025 10:15 AM EDT Consult Orthopedic Surgery - [place] [address] [facility] [address] [place] [id number] Venkata Mejia, DPM Hallux rigidus of right foot (Primary Dx); Type 2 diabetes mellitus with hyperglycemia ([facility] V24, [facility] V28); Acquired hallux valgus of right foot 03/13/2025 2:15 PM EDT Office Visit Bariatric Surgery [facility] [address] [facility] [address] [place] [address] Francesca Bermudez PA Class 2 severe obesity due to excess calories with serious comorbidity and body mass index (BMI) of 36.0 to 36.9 in adult ([facility] V24, [facility] V28) (Primary Dx) 02/21/2025 10:00 AM EDT Nutrition Bariatric Surgery - [address] [place] [address] Class 2 severe obesity with serious comorbidity and body mass index (BMI) of 37.0 to 37.9 in adult, unspecified obesity type ([facility] V24, [facility] V28) (Primary Dx) from Last 3 Months [...] PROCEDURE: HISTORICAL BLADDER SURGERY ESOPHAGOGASTRODUODENOSCOPY 09/24/15 PROCEDURE: PA ESOPHAGOGASTRODUODENOSCOPY TRANSORAL DIAGNOSTIC; COMMENT: Duodenitis, otherwise normal [...] Comments Brother 1 Brother 2 Alive HTN, NM at 55 y o Brother 3 mi [...] 1:15 PM EDT Office Visit Orthopedic Surgery [facility] [address] [phone] Venkata Mejia DPM [address] [address] 05/20/2025 10:00 AM EDT Nutrition Bariatric Surgery - [place] [address] [facility] [address] [place] [address] Katty Stewart, RD 175 [facility] [address] [place] [address] Health Maintenance Due Date Last [...] Blood Venous blood specimen / Unknown Result [facility] Provider LAB BLOOD ORDERABLES Delisa l Result * Hemoglobin A1c (12/30/2015) Pathologist [facility] Hemoglobin A1C 5.6 4.0 - 6.0 % Blood Venous blood specimen / Unknown Result [facility] Provider LAB BLOOD ORDERABLES Delisa l Result * HIV Screening (05/25/2013) Pathologist [facility] HIV Screening abstracted Result [facility] Provider HEALTH MAINTENANCE Final Result * Hepatitis C Screening (05/25/2013) Pathologist [facility] Hepatitis C Screening abstracted Result [facility] Provider HEALTH MAINTENANCE Final Result from Last 3 Months or Most Recently Relevant to Health Maintenance Insurance MEDICAID - [place] Care Teams Strategic Marketing Specialist Relationship Specialty Start Date End Date Aaliyah Roche MD [address] [place] [phone] PCP - General Internal Medicine 08/24/21
[2025-03-29 16:48] VITALS: BP 147/78; PULSE 73; RESP 18; TEMP 36.6; O2SAT 96
[2025-03-29 17:28] VITALS: BP 147/78; PULSE 73; RESP 18; TEMP 36.6; O2SAT 96
== END 2025-03-29 17:28 | disposition home or self-care (01) ==
PROVIDERS: Emergency Provider Emergency Medicine; PCP Internal Medicine
DX: S43.422A Sprain of left rotator cuff capsule, initial encounter (principal); X50.0XXA Overexertion from strenuous movement or load, initial encounter; Y93.9 Activity, unspecified; Y92.9 Unspecified place or not applicable; Y99.9 Unspecified external cause status; I73.9 Peripheral vascular disease, unspecified; E66.2 Morbid (severe) obesity with alveolar hypoventilation; I10 Essential (primary) hypertension; M54.9 Dorsalgia, unspecified; F41.9 Anxiety disorder, unspecified; K20.90 Esophagitis, unspecified without bleeding; E78.00 Pure hypercholesterolemia, unspecified; K21.9 Gastro-esophageal reflux disease without esophagitis; K76.0 Fatty (change of) liver, not elsewhere classified; D64.9 Anemia, unspecified; F17.210 Nicotine dependence, cigarettes, uncomplicated; Z79.82 Long term (current) use of aspirin; Z68.35 Body mass index [BMI] 35.0-35.9, adult
CPT/HCPCS: 73030; 99283

== ENCOUNTER → 2025-03-29 15:19 | Outpatient (BNV) | payer MEDICAID, SELFPAY | PROVIDERS: Emergency Provider Emergency Medicine; PCP Internal Medicine; Visit Provider Radiology Diagnostic Radiology | DX: M75.32 Calcific tendinitis of left shoulder (principal) | CPT/HCPCS: 73030 ==

== ENCOUNTER 2025-05-09 10:46 | Outpatient (AMB) | payer MEDICAID, SELFPAY ==
[2025-05-09 10:52] VITALS: BP 133/63; PULSE 58; BMI 36.4
--- NOTE | 2025-05-09 10:52 | A.OFFVIS_ITS ---
Vital Signs 05/09/25 10:52 Height 5 ft 10 in Weight 253 lb 8.505 oz BMI 36.4 BP 133/63 Blood Pressure Location Lt brachial Position Sitting Pulse 58 Intake Visit Reasons: f/u Dysphagia Intake Note: Silvestre presents in the office as a follow up for dysphagia. CC: swallowing is good and denies other GI symptoms. [employer] Contact Printer Required: No Allergies duloxetine Allergy (Severe, Verified 05/09/25 10:52) Nightmare baclofen (BACLOFEN) Allergy (Intermediate, Verified 05/09/25 10:52) RASH HPI HPI f/u Dysphagia: Details: 60 yr old m here for f/u RECAP: Initially seen as in patient 05/2019 He initially presented with sudden onset worsening epigastric pain going into the back and associated with few epsidoes of emesis-yellow and nausea. He admitted to chills but no fever, also veda he had cough and runy nose for few days prior. Prior to symptoms had shrimp soup and chicken. He endorsed sever eheartburn and was taking tums prn, he stopped PPI of own volition 1 yr before, also taking motrin daily for back pain as well as beer once a week. In the ER, his vital signs were stable. Labs were stable. He had an abdominal pelvic CT, which showed no acute abnormality. Chest x-ray was negative for consolidation or effusion. 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, endovascular repair of type b aortic dissection noted no acute lesions endoleak from T9 to aortic bifurcation sig spinal degen with osteophytes and loss of lumbar lordosis I saw him for f/u in office and he had worsening dysphagia with RUQ pain going into the back which I suspected was more radicular in origin he was referred to pain mx and plan was for lidocaine patches, possible abdominal cutaneous nerve block further tests: 05/2022--- EGD: erosive gastritis esophagitis possible barretts dilation to 19 mm with balloon of the esophagus Path: moderate chronic inflammation GEJ stomach with mild chronic inflammation US 06/2022 - fatty liver ectatic CBD, stable (hx of cholecystectomy) pancreas not well seen EGD 08/20- balloon dilation, erosive esophagitis, duodenitis INTERIM: nO ISSUES with heartburn unlees takes bananas no trouble with swallowing minimal pain appetite is good no nausea or vomtiing denies constipation he was on zepbound and helped lose weight, holding now for vascular surgery next week EXAM: GENERAL: The patient is obese. edentulous VITAL SIGNS:see workflow HEENT: Nonicteric sclerae, PERRLA, EOMI. Oropharynx clear. Moist mucous membranes. Conjunctivae appear well perfused. No thyroid mass. CHEST: Chest wall is nontender. HEART: Regular rate and rhythm without murmurs. LUNGS: Clear to auscultation bilaterally. ABDOMEN: Soft, positive bowel sounds,non tender abdo today, no organomegaly.no flank tenderness SKIN: No rash, no excessive bruising, petechiae, or purpura. NEUROLOGIC: Cranial nerves II-XII intact without motor/sensory deficit. psych--nml affect Assessments 1. Esophagitis, with dysphagia- better with dilation 2. Constipation,not an issue now, 3. ruq pain, radicular,, seeing pain mx 4. erosive gastritis, better 5. fatty liver--no MOLINA, LFt have been nml PLAN: 1/ increase lansoprazole to BID dosing 2/ repeat EGD with dilation as needed 3/ take multi vitamin and vit D PFSH Medical History Peripheral vascular disease Morbid obesity Sacroiliac joint dysfunction of right side Sacroiliitis HTN (hypertension) Descending thoracic aortic dissection Ascending aortic aneurysm Leg edema SOB (shortness of breath) Peptic ulcer disease Back pain Anxiety Hx of lipoma Constipation Esophagitis Sacroiliac joint pain Sacroiliitis Hypercholesteremia GERD (gastroesophageal reflux disease) Fatty liver VALERY (obstructive sleep apnea) Pulmonary hypertension Anemia Surgical History Status post excision of lipoma (~08/01/23) Hx of surgical procedure (06/19/23) Hx of repair of dissecting thoracic aortic aneurysm, [place] type B Hx of colonoscopy History of esophagogastroduodenoscopy (EGD) History of carpal tunnel release of both wrists History of arthroscopy of both knees Hx of cholecystectomy Family History Father Depression Suicide Mother Diabetes Dementia Heart problem Sister Dementia, Onset Age: 73 Sister No problems noted. Brother No problems noted. Family/Other No problems noted. Social History Alcohol intake: former Patient Tobacco Use Status: Current someday Tobacco user Years Smoked: 30 +/- Physical Exam Vital Signs: BMI result Body Mass Index 36.4 Assessment & Plan Assessment & Plan (1) Dysphagia: Code(s): R13.10 - Dysphagia, unspecified Category: Medical Plan: as above Coding Level of Care Code Est Pt Level 3 (29491) Diagnoses Dysphagia R13.10
--- OUTSIDE RECORDS SUMMARY | 2025-05-09 12:20 | XMS_ITS | Clinical Summary ---
Author Organization 175 [facility] Address 175 [place] [address] Phone Care Team Providers Care Consumer Studies Professor Name Role Phone Aaliyah Roche MD Primary [...] each day. Active tirzepatide, weight loss, (Zepbound) 10 mg/0.5 mL injection Inject 0.5 mL (10 mg total) under the skin every 7 (seven) days. 2 mL 5 05/17/20 25 Active tirzepatide, weight loss, (Zepbound) 7.5 mg/0.5 mL injection Inject 0.5 mL (7.5 mg total) under the skin every 7 (seven) days. 2 mL 5 04/16/20 25 Discontinued Active Problems Problem Noted Date Diagnosed Date Class 3 severe obesity with body mass index (BMI) of 40.0 to 44.9 in adult ([facility] V24, [facility] V28) 06/11/2024 Obstructive sleep apnea 11/09/2020 [...] (BMI) of 36.0 to 36.9 in adult ([facility] V24, [facility] V28) 01/29/2016 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 [...] w/u and cta HH 04/2015 [facility] / nuclear stress done Encounters Date Type Department Care Team Description 04/16/2025 Telephone Bariatric Surgery [facility] [address] [phone] Francesca Bermudez PA 03/18/2025 10:15 AM EDT Consult Orthopedic Surgery [facility] [address] [phone] Venkata Mejia, DPM Hallux rigidus of right foot (Primary Dx); Type 2 diabetes mellitus with hyperglycemia ([facility] V24, [facility] V28); Acquired hallux valgus of right foot 03/13/2025 2:15 PM EDT Office Visit Bariatric Surgery [facility] [address] [phone] Francesca Bermudez PA Class 2 severe obesity due to excess calories with serious comorbidity and body mass index (BMI) of 36.0 to 36.9 in adult ([facility] V24, [facility] V28) (Primary Dx) 02/21/2025 10:00 AM EDT Nutrition Bariatric Surgery - [address] [place] [address] Class 2 severe obesity with serious comorbidity and body mass index (BMI) of 37.0 to 37.9 in adult, unspecified obesity type (CMS/HCC V24, CMS/HCC V28) (Primary Dx) from Last 3 Months [...] Comments Brother 1 Brother 2 Alive HTN, OR at 55 y o Brother 3 mi [...] Care Team (Late st Contact Info) Description 05/20/2025 10:00 AM EDT Nutrition Bariatric Surgery - [place] [address] [phone] Katty Stewart, RD 175 [facility] 120 [place] [address] 06/16/2025 2:30 PM EDT Office Visit Orthopedic Surgery - [place] [address] [phone] Venkata Mejia, DPM [address] [phone] Health Maintenance Due Date Last Done Comments Diabetes: Annual Foot Exam 1975 Diabetes: Annual Retina Eye Exam 1975 Hepatitis A Vaccines (1 of 2 - Risk 2-dose series) 1984 Zoster Vaccines (1 of 2) 2015 Social Influencers of Health Screening 07/31/2022 DTaP,Tdap,and Td Vaccines (2 - Td or Tdap) 05/21/2023 05/21/2013 Diabetes: Annual Urine Albumin-Creatinine Ratio (uACR) 07/23/2024 Depression Screening 08/28/2024 RSV Immunization Adult Patients (1 - Risk 60-74 years 1-dose series) 2025 Influenza Vaccine (#1) 2025 , 05/30/2023, 09/07/2022, Additional history exists Diabetes: Blood Sugar Control Test (HGBA1C) 05/16/2025 11/13/2024, 06/05/2024, 12/30/2015 Diabetes: Annual GFR (Glomerular Filtration Rate) 03/05/2026 03/05/2025, 09/13/2024, 04/23/2024, Additional history exists Hypertension/CHF/CAD Annual BMP Blood Test 03/05/2026 03/05/2025, 09/13/2024, 04/23/2024, Additional history exists Colorectal Cancer Screening: FIT-DNA (Cologuard) 06/08/2026 06/08/2023 Cholesterol Screening (Lipid Panel) 09/13/2029 09/13/2024, 05/11/2023, 03/24/2016 HIV Screening Completed 05/25/2013 Hepatitis C Screening Completed 05/25/2013 Pneumococcal Vaccine: 50+ Years Completed 01/23/2024, 09/20/2019, 05/01/2015 COVID-19 Vaccine Completed 06/05/2024, 06/2023, 09/03/2021, Additional history exists HIB Vaccines Aged Out No longer eligi ble based on patient's age to complete this topic HPV Vaccines Aged Out No longer eligi ble based on patient's age to complete this topic Hepatitis B Vaccines Aged Out No long er eligible [...] Final Result * (ABNORMAL) Lipid panel (03/24/2016) LDL/HDL Ratio 5(A) 0 - 4 Triglycerides 257(A) 0 - 150 mg/dL Cholesterol 187 0 - 200 mg/dL HDL 38(A) >=40 mg/dL LDL Cholesterol 98 0 - 100 mg/dL Blood Venous blood specimen / Unknown Result [facility] Provider LAB BLOOD ORDERABLES Delisa l Result * Hemoglobin A1c (12/30/2015) Hemoglobin A1C 5.6 4.0 - 6.0 % Blood Venous blood specimen / Unknown Result [facility] Provider LAB BLOOD ORDERABLES Delisa l Result * HIV Screening (05/25/2013) HIV Screening abstracted Result [facility] Provider HEALTH MAINTENANCE Final Result * Hepatitis C Screening (05/25/2013) Hepatitis C Screening abstracted Result [facility] Provider HEALTH MAINTENANCE Final Result from Last 3 Months or Most Recently Relevant to Health Maintenance Insurance MEDICAID - [place] Care Teams Consumer Studies Professor Relationship Specialty Start Date End Date Aaliyah Roche MD [address] [phone] PCP - General Internal Medicine 08/24/21
--- OUTSIDE RECORDS SUMMARY | 2025-05-09 12:20 | XMS_ITS | Encounter Summary ---
Author Organization [employer] Address [address] [facility] [address] [place] [address] Care Team Providers Care Commercial Collector Name Role Phone Aaliyah Roche MD Primary Care Provide r Deb Duncan RN Unavailable [phone] Sylvia Brumfield Unavailable Reason for Visit * Reason Comments Med Change Request Encounter Details Date Type Department Care Team ([facility] st Contact Info) Description 03/05/2025 Refill [facility] 230 [place], [place] [phone] Aaliyah Roche MD 230 [place], [place] [phone] Neuropathy Social History Tobacco Use Types Packs/Day Years [...] AM EDT documented as of this encounter Functional Status * Over the past 2 weeks, how often have you been bothered by any of the following problems? Question Answer Date of Assessment Author Little interest or pleasure in doing things Not at all 03/05/2025 8:59 AM EDT Deya Bridges MA Feeling down, depressed, or hopeless Not at all 03/05/2025 8:59 AM EDT Deya Bridges MA Patient Health Questionnaire -2 Score 0 03/05/2025 8:59 AM EDT Deya Bridges MA * Trouble falling or staying asleep, or sleeping too much Answer Date of Assessment Author Not at all 03/05/2025 8:59 AM EDT Octavio Bridges MA * Feeling tired or having little energy Answer Date of Assessment Author Not at all 03/05/2025 8:59 AM EDT Octavio Bridges MA * Poor appetite or overeating Answer Date of Assessment Author Not at all 03/05/2025 8:59 AM EDT Octavio Bridges MA * Feeling bad about yourself - or that you are a failure or have let yourself or your family down Answer Date of Assessment Author Not at all 03/05/2025 8:59 AM EDT Octavio Bridges MA * Trouble concentrating on things, such as reading the newspaper or watching television Answer Date of Assessment Author Not at all 03/05/2025 8:59 AM EDT Octavio Bridges MA * Moving or speaking so slowly that other people could have noticed? Or the opposite - being so fidgety or restless that you have been moving around a lot more than usual. Answer Date of Assessment Author Not at all 03/05/2025 8:59 AM EDT Octavio Bridges MA * Thoughts that you would be better off or hurting yourself in some way Answer Date of Assessment Author Not at all 03/05/2025 8:59 AM EDT Octavio Bridges MA * Patient Health Questionnaire-9 Score Answer Date of Assessment Author 0 03/05/2025 8:59 AM EDT Octavio Bridges MA documented as of this encounter Plan of Treatment Upcoming Encounters Date Type Department Care Team (Late st Contact Info) Description 06/11/2025 10:45 AM EDT Office Visit [facility] 230 [place] [address] Aaliyah Roche MD [address] [place] [phone] documented as of this encounter Visit Diagnoses Diagnosis Neuropathy Mononeuritis of unspecified site documented in this encounter Additional Health Concerns Assessment Noted Time PHQ-9 Depression Total Score: 0 03/05/20 8:59 AM EDT documented as of this encounter Care Teams Commercial Collector Relationship Specialty Start Date End Date Aaliyah Roche MD [address] [place] [address] PCP - General Family Medicine 07/03/19 Deb Duncan, KIANA [address] [place] [address] Registered Nurse Family Medicine 03/31/25 Sylvia Brumfield 03/31/25 documented as of this encounter
--- OUTSIDE RECORDS SUMMARY | 2025-05-09 12:20 | XMS_ITS | Encounter Summary ---
Author Organization [employer] Address [address] [facility] [address] [place] [address] Care Team Providers Care Dispersion Mixer Name Role Phone Aaliyah Roche MD Primary Care Provide r Deb Duncan RN Unavailable [phone] Sylvia Brumfield Unavailable Reason for Visit * Reason Onset Date Comments Med Change Request Durable Medical Equipment 04/15/2025 DME Or pako: Blood Pressure Monitor. Encounter Details Date Type Department Care Team (Late st Contact Info) Description 04/15/2025 Refill [facility] 230 [place] [address] Aaliyah Roche MD 230 [place], [place] [phone] Social History Tobacco Use Types Packs/Day Years Used Date Smoking Tobacco: Former Cigarettes Passive Smoke Exposure: Past Smokeless Tobacco: Never Alcohol Use Standard Drinks/Week Comments Not Currently 0 (1 standard drink = 0.6 oz pur e alcohol) Depression Answer Date Recorded Patient Health Questionnaire-9 Score 0 04/09/2025 Patient Health Questionnaire-9 Score 0 04/09/2025 Last PHQ-9: Questionnaire Data Not on file 0 04/09/2025 Housing Stability Answer Date Recorded What is [...] Date Recorded Patient Health Questionnaire-2 Score 0 04/09/2025 Internet Access Answer Date Recorded Internet Access Q1 Yes 04/09/2025 Internet Access Q2 I do not want or need it 03/28 Sex and Gender Information Value Date Recorded Sex Assigned at Male 06/27/2022 10:20 AM EDT Legal Sex Male 10:20 AM EDT Gender Identity Male 06/27/2022 10:20 AM EDT Sexual Orientation Straight 06/27/2022 10 :20 AM EDT documented as of this encounter Miscellaneous Notes * Telephone Encounter - Leona Brumfield - 04/17/2025 2:54 PM EDT DME Order for Blood Pressure Monitor was generated and sent via FAX to [facility]. Confirmation was uploaded to Media. documented in this encounter Plan of Treatment Upcoming Encounters Date Type Department Care Team (Late st Contact Info) Description 06/11/2025 10:45 AM EDT Office Visit [facility] 230 [place] [address] Aaliyah Roche MD 230 [place] [address] documented as of this encounter Visit Diagnoses Not on filedocumented in this encounter Additional Health Concerns Assessment Noted Time PHQ-9 Depression Total Score: 0 04/09/20 25 3:16 PM EDT documented as of this encounter Care Teams Dispersion Mixer Relationship Specialty Start Date End Date Aaliyah Roche MD 230 [place] [address] PCP - General Family Medicine 07/03/19 Deb Duncan RN [address] [place] [address] Registered Nurse Family Medicine 03/31/25 Sylvia Brumfield 03/31/25 documented as of this encounter
--- OUTSIDE RECORDS SUMMARY | 2025-05-09 12:20 | XMS_ITS ---
Author Organization [employer] Address 75 [facility] 7t [place] [address] Care Team Providers Care Undercover Agent Name Role Phone Aaliyah Roche MD Primary Care Provide r Deb Duncan RN Unavailable [phone] Sylvia Brumfield Unavailable CHW Complex Status:Enrolled (Active) Start date:03/31/2025 Enrollment date:04/09/2025 Enrollment reason:ADT Feed Overview ED- Pt went to [facility] on 03/29/25. Please outreach for enrollment. Case Team Name Relationship Phone Sylvia Brumfield(Responsible Staff) [phone] Continued Care and Services Coordination
--- OUTSIDE RECORDS SUMMARY | 2025-05-09 12:20 | XMS_ITS ---
Author Organization [employer] Address 75 [facility] 7t [place] [address] Care Team Providers Care Envelope Stamping Machine Operator Name Role Phone Aaliyah Roche MD Primary Care Provide r Deb Duncan RN Unavailable [phone] Sylvia Brumfield Unavailable CM Complex Status:Enrolled (Active) Start date:03/31/2025 Enrollment date:04/09/2025 Enrollment reason:ADT Feed Overview ED- Pt went to [facility] on 03/29/25. Case Team Name Relationship Phone Deb Duncan RN(Responsible Staff) Registered Nurse [phone] Continued Care and Services Coordination
--- OUTSIDE RECORDS SUMMARY | 2025-05-09 12:20 | XMS_ITS | Encounter Summary ---
Author Organization [employer] Address [address] [facility] [address] [place] [address] Care Team Providers Care Wound Care Rn Name Role Phone Aaliyah Roche MD Primary Care Provide r Deb Duncan RN Unavailable [phone] Sylvia Brumfield Unavailable Reason for Visit * Reason Comments Care Management C3CM- f/u call Encounter Details Date Type Department Care Team ([facility] st Contact Info) Description 05/07/[address] [facility] 230 [place] [address] Aaliyah Roche MD 230 [place], [place] [phone] Care Management (C3CM- f/u call) Social History Tobacco Use Types Packs/Day Years [...] AM EDT documented as of this encounter Progress Notes * Deb Duncan RN - 05/07/2025 2:14 PM EDT CM Deb Duncan RN and JAJAW Sylvia Brumfield placed outbound call to patient. Patient's name, and address confirmed. Patient reports attending visit with Ortho on 04/30 as scheduled. He states his provider reviewed the MRI results with him during the visit. Per patient, given an injection to help with pain. He states account supervisor plan was discussed with him- total shoulder replacement. Patient alsostates he was contacted by [facility] Vascular with CT results. Per patient, was informed that the stent that was placed is leaking and that the aneurysm grew in size. Patient states he is scheduled for aneurysm repair at [facility] on 05/19/25 at 5:30am. He is aware that he is scheduled to see Nutrition on 05/20/25. Patient states he will contact the office to reschedule the appt. Patient reports experiencing intermittent chest tightness/discomfort over the past three days, described as central and radiating to the back, typically lasting 30 minutes to 1 hour and relieved by lying down. Patient states the last episode occurred this morning. He states he also experienced nausea. Per patient, ate 2 eggs andsymptoms resolved within 1 hour. He denies CP, SOB, dizziness, lightheadedness, blurry vision, nausea, vomiting, or other symptoms now. He states he did discuss these symptoms with his vascular provider yesterday and reports being advised to seek medical attention at [facility] ED if symptoms persist or worsen. Patient states he is also scheduled to see [facility] on 05/13/25 at 10:30am. Per patient,BP has been slightly elevated. He reports ranges from 140/70-148/80. Patient reports compliance to medication regimen. CM reviewed ED precautions with patient. He verbalizes understanding. No further questions or concerns. CM reinforced direct contact information for any additional questions or concerns. Education provided on Walk-In Urgent Care located in [facility]. Patient provided with after-hours line for [facility], , which offer night time triage service and option to transfer to second rigger provider if needed. Patient verbalizes understanding, and able to r epeat back to senior writer. A follow up call will be placed within 10 days, patient agrees with plan. documented in this encounter Plan of Treatment Upcoming Encounters Date Type Department Care Team (Late st Contact Info) Description 06/11/2025 10:45 AM EDT Office Visit [facility] [address] [place] [phone] Alaiyah Roche MD 230 [place] [address] documented as of this encounter Visit Diagnoses Not on filedocumented in this encounter Additional Health Concerns Assessment Noted Time PHQ-9 Depression Total Score: 0 04/09/20 25 3:16 PM EDT documented as of this encounter Care Teams Wound Care Rn Relationship Specialty Start Date End Date Aaliyah Roche MD 230 [place], [place] [phone] PCP - General Family Medicine 07/03/19 Deb Duncan RN [address] [place] [address] Registered Nurse Family Medicine 03/31/25 Sylvia Brumfield 03/31/25 documented as of this encounter
--- OUTSIDE RECORDS SUMMARY | 2025-05-09 12:20 | XMS_ITS | Encounter Summary ---
Author Organization [employer] Address [address] [facility] [address] 7[address] [place] [address] Care Team Providers Care Websphere Commerce Architect Name Role Phone Aaliyah Roche MD Primary Care Provide r Deb Duncan RN Unavailable [phone] Sylvia Brumfield Unavailable Reason for Visit * Reason Comments Med Refill Encounter Details Date Type Department Care Team (Late st Contact Info) Description 12/18/2024 Refill [facility] 230 [place], [place] [phone] Aaliyah Roche MD 230 [place], [place] [phone] Essential hypertension Social History Tobacco Use Types [...] Description 06/11/2025 10:45 AM EDT Office Visit [facility] 230 [place] [address] Aaliyah Roche MD 230 [place] [address] documented as of this encounter Visit Diagnoses Diagnosis Essential hypertension Unspecified essential hypertension documented in this encounter Additional Health Concerns Assessment Noted Time PHQ-9 Depression Total Score: 12 024 11:05 AM EDT documented as of this encounter Care Teams Websphere Commerce Architect Relationship Specialty Start Date End Date Aaliyah Roche MD 230 [place] [address] PCP - General Family Medicine 07/03/19 Deb Duncan RN [address] [place] [phone] Registered Nurse Family Medicine 03/31/25 Sylvia Brumfield 03/31/25 documented as of this encounter
--- OUTSIDE RECORDS SUMMARY | 2025-05-09 12:20 | XMS_ITS | Encounter Summary ---
Author Organization [employer] Address [address] [facility] [address] [place] [address] Care Team Providers Care Pharmacy Helper Name Role Phone Aaliyah Roche MD Primary Care Provide r Deb Duncan RN Unavailable Sylvia Brumfield Unavailable Reason for Visit * Reason Comments Med Refill Encounter Details Date Type Department Care Team (Late st Contact Info) Description 04/14/[address] [facility] 230 [place], [place] [phone] Aaliyah Roche MD 230 [place], [place] [phone] Social History Tobacco Use Types Packs/Day Years [...] 06/11/2025 10:45 AM EDT Office Visit [facility] 230 [place] [address] Aaliyah Roche MD 230 [place] [address] documented as of this encounter Visit Diagnoses Not on filedocumented in this encounter Additional Health Concerns Assessment Noted Time PHQ-9 Depression Total Score: 0 04/09/20 3:16 PM EDT documented as of this encounter Care Teams Pharmacy Helper Relationship Specialty Start Date End Date Aaliyah Roche MD 230 [place] [address] PCP - General Family Medicine 07/03/19 Deb Duncan, KIANA [address] [place] [address] Registered Nurse Family Medicine 03/31/25 Sylvia Brumfield 03/31/25 documented as of this encounter
--- OUTSIDE RECORDS SUMMARY | 2025-05-09 12:20 | XMS_ITS | Encounter Summary ---
Author Organization [employer] Address [address] [facility] [address] 7[address] [place] [address] Care Team Providers Care Package Sorter Name Role Phone Aaliyah Roche MD Primary Care Provide r Deb Duncan RN Unavailable Sylvia Brumfield Unavailable Reason for Visit * Reason Comments Care Coordination SDOH f/u Encounter Details Date Type Department Care Team (Latest Contact Info) Description 05/07/2025 Patient Outreach [facility] 230 [place] [address] Aaliyah Roche MD 230 [place] [address] Care Coordination (SDOH f/u) Social History Tobacco Use Types Packs/Day Years [...] your housing situation today? I have raoul sing 11/13/[address] you li [...] as of this encounter Progress Notes * Sylvia Brumfield - 05/07/2025 2:29 PM EDT CHW Sylvia Brumfield/CHRISTIANO Duncan RN placed outbound call to patient to follow up on SDOH needs.Patient's name, and address confirmed. Patient states is doing well. Patient stated he has started the process with the [employer] for healthy food vouchers and is grateful. No other SDOH needed at this time. No further questions or concerns. CHW reinforced direct contact information or CM for any additional questions or concerns and extended clinic hours on Mondays and Wednesdays, and Walk-In Urgent Care Located in [facility]. Patient provided with after-hours line for [facility], , which offer night time triage service and option to transfer to medical certification specialist provider if needed. Patient verbalizes understanding, and able to repeat back to commercial underwriter. A follow up call willbe placed within 10 days, patient agrees with plan. documented in this encounter Plan of Treatment Upcoming Encounters Date Type Department Care Team (Late st Contact Info) Description 06/11/2025 10:45 AM EDT Office Visit [facility] 230 [place] [address] Aaliyah Roche MD 230 [place] [address] documented as of this encounter Visit Diagnoses Not on filedocumented in this encounter Additional Health Concerns Assessment Noted Time PHQ-9 Depression Total Score: 0 04/09/20 25 3:16 PM EDT documented as of this encounter Care Teams Package Sorter Relationship Specialty Start Date End Date Aaliyah Roche MD 230 [place], [place] [phone] PCP - General Family Medicine 07/03/19 Deb Duncan, KIANA [address] [place] [address] Registered Nurse Family Medicine 03/31/25 Sylvia Brumfield 03/31/25 documented as of this encounter
--- OUTSIDE RECORDS SUMMARY | 2025-05-09 12:21 | XMS_ITS | Encounter Summary ---
Author Organization [employer] Address [address] [facility] [address] [facility] [address] 7t [place] [address] Care Team Providers Care Senior Medical Billing Specialist Name Role Phone Aaliyah Roche MD Primary Care Provide r Deb Duncan RN Unavailable [phone] Sylvia Brumfield Unavailable Reason for Visit * Reason Comments Med Refill Encounter Details Date Type Department Care Team (Late st Contact Info) Description 10/21/2024 Refill [facility] [address] [place], [place] [phone] Aaliyah Roche MD [address] [place], [place] [phone] Dyslipidemia Social History Tobacco Use Types Packs/Day [...] Description 06/11/2025 10:45 AM EDT Office Visit [facility] [address] [place] [address] Aaliyah Roche MD 230 [place] [address] documented as of this encounter Visit Diagnoses Diagnosis Dyslipidemia Other and unspecified hyperlipidemia documented in this encounter Additional Health Concerns Assessment Noted Time PHQ-9 Depression Total Score: 12 024 11:05 AM EDT documented as of this encounter Care Teams Senior Medical Billing Specialist Relationship Specialty Start Date End Date Aaliyah Roche MD 230 [place] [address] PCP - General Family Medicine 07/03/19 Deb Duncan RN [address] [place] [address] Registered Nurse Family Medicine 03/31/25 Sylvia Brumfield 03/31/25 documented as of this encounter
--- OUTSIDE RECORDS SUMMARY | 2025-05-09 12:21 | XMS_ITS | Clinical Summary ---
Author Organization [facility] Address [address] [place] [address] Phone Care Team Providers Care Certified Industrial Hygienist Name Role Phone Aaliyah Roche MD Primary Care Provider Tyree Weber MD Unavailable [phone] Allergies Active Allergy Reactions Criticality Noted Date [...] DEPRESSION SCREENING 1977 SMOKING Hx and SMOKELESS TOBACCO SCREENING 1978 HEPATITIS C SCREENING 1983 HIV ONE-TIME SCREENING (18-65 YEARS) 1983 COLOGUARD 2010 COLONOSCOPY 2010 COLORECTAL CANCER SCREENING 2010 FIT TEST 2010 FOBT 2010 SIGMOIDOSCOPY 2010 VIRTUAL COLONOSCOPY 2010 ZOSTER VACCINES (1 of 2) 2015 PNEUMOCOCCAL VACCINES (50+ years) (2 of 2 - PCV) 05/01/2016 05/01/2015 Adult Td,Tdap Booster 05/21/2023 05/21/2013 INFLUENZA VACCINE (#1) 2025 , 06/24/2019, 05/28/2015, Additional history exists COVID-19 VACCINE (2 - 2024- season) 2025 12/23/2020 RSV VACCINE (1 - 1-dose 75+ series) 2040 HEPATITIS A VACCINES Aged Out No long [...] topic Medical Devices Not on file Insurance [facility] C3 ACO [facility] C3 ACO [facility] C3 ACO [facility] C3 ACO [facility] [address] [place] [address] [place] [address] C3 ACO Care Teams Certified Industrial Hygienist Relationship Specialty Start Date End Date Aaliyah Roche MD [address] [place] [address] PCP - General Internal Medicine 04/29/20 Tyree Weber MD [address] [place] [address] Spine Surgeon Cardiology 05/28/20 Additional Source Comments The information contained in this document represents components of the legal health record. It is not the complete legal health record.[facility]
--- OUTSIDE RECORDS SUMMARY | 2025-05-09 12:21 | XMS_ITS | Encounter Summary ---
Author Organization [employer] Address [address] [facility] 7t [place] [address] Care Team Providers Care Counter Top Assembler Name Role Phone Aaliyah Roche MD Primary Care Provide r Deb Duncan RN Unavailable [phone] Sylvia Brumfield Unavailable Reason for Visit * Reason Comments Med Refill Encounter Details Date Type Department Care Team (Late Contact Info) Description 03/12/2023 Refill [facility] [address] [place], [place] [phone] Dominga Enrique MD [address] [place] [address] [phone] Dyslipidemia Social History Tobacco Use Types Packs/Day [...] Encounters Date Type Department Care Team (Late Contact Info) Description 06/11/2025 10:45 AM EDT Office Visit [facility] [address] [place] [address] [phone] Aaliyah Roche MD [address] [place] [address] [phone] documented as of this encounter Visit Diagnoses Diagnosis Dyslipidemia Other and unspecified hyperlipidemia documented in this encounter Care Teams Counter Top Assembler Relationship Specialty Start Date End Date Aaliyah Roche MD 230 [place] [address] PCP - General Family Medicine 07/03/19 Deb Duncan RN 505 [place] [address] Registered Nurse Family Medicine 03/31/25 Sylvia Brumfield 03/31/25 documented as of this encounter
--- OUTSIDE RECORDS SUMMARY | 2025-05-09 12:21 | XMS_ITS | Clinical Summary ---
Author Organization [facility] Address [address] [place] [address] Care Team Providers Care Senior Mechanical Project Manager Name Role Phone Sabra Lim Primary [...] Test 1965 HIV Screening [address] Lung Cancer Screening (Baseline) 2015 Pneumococcal Vaccine: 50+ Ye ars (1 of 1 - PCV) 2015 Zoster Vaccines (1 of 2) 2015 DTaP,Tdap,and Td Vaccines (2 - Td or Tdap) 05/21/2023 05/21/2013 Alcohol/Substance Use Screening 08/28/2024 COVID-19 Vaccine (1 - 2023-2 5 season) 2025 Influenza Vaccine (#1) 2025 05/21/2013 RSV Vaccine (60+ years old a nd patients) (1 - 1-dose 75+ series) 2040 Hepatitis B Vaccines Aged Out No long er eligible based on patient's age to complete this topic Insurance [employer] Care Teams Senior Mechanical Project Manager Relationship Specialty Start Date End Date Sabra Lim [address] [place] [address] JOSE G Barrera [address] PCP - General 09/04/20
--- OUTSIDE RECORDS SUMMARY | 2025-05-09 12:21 | XMS_ITS | Encounter Summary ---
Author Organization [employer] Address [address] [facility] [address] 7[address] [place] [address] Care Team Providers Care Test Skein Winder Name Role Phone Aaliyah Roche MD Primary Care Provide r Deb Duncan RN Unavailable [phone] Sylvia Brumfield Unavailable Reason for Visit * Reason Comments Med Refill Encounter Details Date Type Department Care Team (Late st Contact Info) Description 12/21/[address] [facility] MEDICINE 230 [place], [place] [phone] Aaliyah Roche MD 230 [place], [place] [phone] Essential hypertension Social History Tobacco Use Types [...] AM EDT Office Visit [facility] MEDICINE 230 [place] [address] Aaliyah Roche MD [address] [place] [address] documented as of this encounter Visit Diagnoses Diagnosis Essential hypertension Unspecified essential hypertension documented in this encounter Additional Health Concerns Assessment Noted Time PHQ-9 Depression Total Score: 12 024 11:05 AM EDT documented as of this encounter Care Teams Test Skein Winder Relationship Specialty Start Date End Date Aaliyah Roche MD 230 [place] [address] PCP - General Family Medicine 07/03/19 Deb Duncan RN [address] [place] [address] Registered Nurse Family Medicine 03/31/25 Sylvia Brumfield 03/31/25 documented as of this encounter
--- OUTSIDE RECORDS SUMMARY | 2025-05-09 12:21 | XMS_ITS | Encounter Summary ---
Author Organization [employer] Address [address] [facility] [address] 7[address] [place] [address] Care Team Providers Care Host Coordinator Name Role Phone Aaliyah Roche MD Primary Care Provide r Deb Duncan RN Unavailable [phone] Sylvia Brmufield Unavailable Encounter Details Date Type Department Care Team ([facility] Contact Info) Description 01/06/2023 Orders Only [facility] MED & PEDS 505 [place], [place] [phone] Alyssa Mackey LPN Social History Tobacco Use [...] Upcoming Encounters Date Type Department Care Team ([facility] Contact Info) Description 06/11/2025 10:45 AM EDT Office Visit [facility] MEDICINE 230 [place], [place] [phone] Aaliyah Roche MD 230 [place], [place] [phone] documented as of this encounter Visit Diagnoses Not on filedocumented in this encounter Care Teams Host Coordinator Relationship Specialty Start Date End Date Aaliyah Roche MD 230 [place] [address] PCP - General Family Medicine 07/03/19 Deb Duncan RN [address] [place] [address] Registered Nurse Family Medicine 03/31/25 Sylvia Brumfield 03/31/25 documented as of this encounter
== END 2025-05-09 11:02 | disposition home or self-care (01) ==
LOC: HO.HGI 10:46
PROVIDERS: PCP Internal Medicine; Visit Provider Internal Medicine Gastroenterology
DX: R13.10 Dysphagia, unspecified (principal)
CPT/HCPCS: 99213

== ENCOUNTER → 2025-05-09 10:46 | Outpatient (BNVA) | payer MEDICAID, SELFPAY | PROVIDERS: PCP Internal Medicine; Visit Provider Internal Medicine Gastroenterology | DX: R13.10 Dysphagia, unspecified (principal) | CPT/HCPCS: 99212 ==

== ENCOUNTER 2025-05-13 10:23 | Outpatient (AMB) | payer MEDICAID, SELFPAY ==
[2025-05-13 10:27] VITALS: BP 120/70; PULSE 56; BMI 35.7
--- NOTE | 2025-05-13 10:27 | A.OFFVIS_ITS ---
Vital Signs 05/13/25 10:27 Height 5 ft 10 in Weight 249 lb 1.957 oz BMI 35.7 BP 120/70 Blood Pressure Location Lt brachial Position Sitting Pulse 56 Intake Visit Reasons: 1 yr s/.p 2 echo's Intake Note: 1 year follow-up after echo with ekg feeling good Lcac Operator Required: No Allergies duloxetine Allergy (Severe, Verified 05/09/25 10:52) Nightmare baclofen (BACLOFEN) Allergy (Intermediate, Verified 05/09/25 10:52) RASH Medication List - Last Reconciled 05/13/25 by Tyree Weber MD albuterol sulfate 90 mcg/actuation (Ventolin HFA) 2 puffs inhalation Q6H alfuzosin ER 10 mg PO DAILY amlodipine 10 mg PO DAILY aspirin (Adult Aspirin Regimen) 81 mg PO DAILY atorvastatin 40 mg PO BEDTIME blood pressure test kit-large (Omron Blood Pressure Monitor-3 Series kit) As directed budesonide-formoterol 160-4.5 mcg/actuation (Symbicort) inhalation carvedilol (Coreg) 25 mg PO BID clotrimazole 1% appl topical BID ibuprofen 800 mg PO Q8H PRN lansoprazole 30 mg PO BID lisinopril 20 mg PO QAM naloxone 4 mg/actuation (Narcan) 4 mg intranasal Q2M PRN pravastatin 20 mg PO DAILY sucralfate (Carafate) 10 mL PO QID PRN tadalafil (Cialis) 5 mg PO DAILY tirzepatide (weight loss) (Zepbound) 10 mg subcut QWEEK HPI Comments Details: Silvestre comes for follow-up. He has no exertional chest pain. Intermittently has chest tightness and bilateral shoulder tightness which is nonspecific and happens intermittently. Also has funny feeling in his head which is not able to describe better. Also has funny feeling in his leg. He recently underwent a chest CTA which shows leakage around is aortic stent graft causing aneurysmal dilatation as per him. He is scheduled to undergo a repeat stent graft placement in near future at [facility] by Dr. Marino. He denies any exertional chest pain or shortness of breath. Denies any orthopnea, PND, leg edema. No prolonged palpitation irregular heartbeat. Blood pressure seems to be adequately controlled. He takes his medications religiously. [facility] Medical History Peripheral vascular disease Morbid obesity Sacroiliac joint dysfunction of right side Sacroiliitis HTN (hypertension) Descending thoracic aortic dissection Ascending aortic aneurysm Leg edema SOB (shortness of breath) Peptic ulcer disease Back pain Anxiety Hx of lipoma Constipation Esophagitis Sacroiliac joint pain Sacroiliitis Hypercholesteremia GERD (gastroesophageal reflux disease) Fatty liver VALERY (obstructive sleep apnea) Pulmonary hypertension Anemia Surgical History Status post excision of lipoma (~08/01/23) Hx of surgical procedure (06/19/23) Hx of repair of dissecting thoracic aortic aneurysm, [place] type B Hx of colonoscopy History of esophagogastroduodenoscopy (EGD) History of carpal tunnel release of both wrists History of arthroscopy of both knees Hx of cholecystectomy Family History Father Depression Suicide Mother Diabetes Dementia Heart problem Sister Dementia, Onset Age: 73 Sister No problems noted. Brother No problems noted. Family/Other No problems noted. Social History Alcohol intake: former Patient Tobacco Use Status: Current someday Tobacco user Years Smoked: 30 +/- Review of Systems Const Denies chills, Denies fatigue, Denies fever(s), Denies frequent falls, Denies weakness, Denies weight gain and Denies weight loss ENT Denies dizziness Card Denies chest pain, Denies leg edema, Denies lightheadedness, Denies palpitations, Denies dyspnea, Denies dyspnea on exertion, Denies orthopnea and Denies other (loss of consciousness) Resp Denies cough, Denies dyspnea and Denies dyspnea on exertion GI Denies hematochezia and Denies change in stool character Musc Denies abnormal gait, Denies muscle weakness, Denies numbness, Denies radiating pain into limb and Denies tingling Neuro Denies abnormal gait, Denies dizziness, Denies frequent falls, Denies numbness, Denies tingling and Denies weakness Endo Denies fatigue and Denies palpitations Physical Exam Vital Signs: Last Vital Signs Pulse 56 05/13/25 10:27 BP 120/70 05/13/25 10:27 BMI result Body Mass Index 35.7 Const General: cooperative, comfortable, no acute distress, alert and awake Nutritional Appearance: obese morbidly obese Orientation/consciousness: patient oriented x3 Limitations: no limitations Neck Neck: Yes trachea midline, Yes supple and Yes no JVD Resp Effort & Inspection: normal respiratory effort Auscultation: clear to auscultation bilaterally Cardio Jugular venous distension: no JVD Palpation: normal PMI Rhythm: regular rhythm Heart sounds: S1 normal heart sound present and S2 normal heart sound present Neuro General: patient oriented x3 and no focal motor deficits Extrem General: Yes no clubbing, cyanosis or edema Office Procedures EKG Details: EKG shows normal sinus rhythm with right bundle-branch block at 57 beats per minute, which appears to be new. [id number], Complete Assessment & Plan Assessment & Plan (1) Ascending aortic aneurysm: Code(s): I71.2 - Thoracic aortic aneurysm, without rupture Category: Medical Plan: Ascending aortic aneurysm as well as descending thoracic aortic dissection, type B being followed by vascular surgery at [facility]. Had ascending aortic aneurysm being followed through our office. He had moderate dilatation of his ascending aorta. He has genetic workup has been negative for any genetic disorder although his kids has been screened. Discussed about management of ascending aortic aneurysm. Advised to avoid sudden strenuous isometric exercise. Continue to monitor echocardiogram will review it in near future. Continue aggressive blood pressure control. No indication for repair if it remains below 5 cm. Given his descending thoracic aortic disease, genetic component highly likely and may consider repair of his ascending aorta at 5 cm. (2) HTN (hypertension): Code(s): I10 - Essential (primary) hypertension Category: Medical Plan: Hypertension which is currently well optimized importance of good blood pressure control was discussed. Advised to continue current therapy. Advised to monitor blood pressure at home maintain a log. Low-salt diet was discussed. Target blood pressure less than 130/84. Continue participate in weight loss program. Will follow up in the clinic in 1 year's time, sooner p.r.n.. Thank you for allowing me to partake in his care Orders: Orders CA echo transthoracic complete Today I71.2 - Thoracic aortic aneurysm, without rupture Coding Level of Care Code Est Pt Level 4 (38663) Complex EM visit Add On G2211 Diagnoses Ascending aortic aneurysm I71.2 HTN (hypertension) I10 CPT Codes EKG - CPT: 12088-[id number], Complete ([id number])
--- OUTSIDE RECORDS SUMMARY | 2025-05-13 13:40 | XMS_ITS | Encounter Summary ---
Author Organization [employer] Address [address] [facility] [address] [facility] [address] 7[address] [place] [address] Care Team Providers Care Accounts Payable Or Receivable Clerk Name Role Phone Aaliyah Roche MD Primary Care Provide r Deb Duncan RN Unavailable [phone] Sylvia Brumfield Unavailable Reason for Visit * Reason Comments Med Refill Encounter Details Date Type Department Care Team (Late st Contact Info) Description 04/14/2025 Refill [facility] MEDICINE 230 [place], [place] [phone] Aaliyah Roche MD 230 [place], [place] [phone] Social History Tobacco Use Types Packs/Day Years [...] Description 06/11/2025 10:45 AM EDT Office Visit [facility]INE 230 [place] [address] Aaliyah Roche MD 230 [place] [address] documented as of this encounter Visit Diagnoses Not on filedocumented in this encounter Additional Health Concerns Assessment Noted Time PHQ-9 Depression Total Score: 0 04/09/20 3:16 PM EDT documented as of this encounter Care Teams Accounts Payable Or Receivable Clerk Relationship Specialty Start Date End Date Aaliyah Roche MD 230 [place] [address] PCP - General Family Medicine 07/03/19 Deb Duncan, KIANA [address] [place] [address] Registered Nurse Family Medicine 03/31/25 Sylvia Brumfield 03/31/25 documented as of this encounter
--- OUTSIDE RECORDS SUMMARY | 2025-05-13 13:40 | XMS_ITS | Clinical Summary ---
Author Organization [facility] Address [address] [place] [address] Phone Care Team Providers Care Plasterer Stucco Name Role Phone Aaliyah Roche MD Primary [...] (BMI) of 40.0 to 44.9 in adult ([facility] V24, [facility] V28) 06/11/2024 Obstructive sleep apnea 11/09/2020 Overview [...] (BMI) of 36.0 to 36.9 in adult ([facility] V24, [facility] V28) 01/29/2016 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 Overview (06/11/2024): 4.2cm dilatation of the ascending thoracic aorta on cardiac MRI serial echo yearly as per cardiology Chronic pain 05/21/2014 Benign prostatic hyperplasia 10/24/2013 Multiple lipomas 07/04/2011 Degenerative arthritis of lumbar spine 1 Radiculitis, lumbosacral 10/20/2010 Hyperlipidemia 01/12/2009 Tobacco use disorder 01/05/2009 Atypical chest pain 05/02/2008 Overview (06/11/2024): Neg cardiac w/u and cta HH 04/2015 [facility] / nuclear stress done Encounters Date Type Department Care Team Description 04/16/2025 Telephone Bariatric Surgery [facility] [address] [address] Francesca Bermudez PA 03/18/2025 10:15 AM EDT Consult Orthopedic Surgery [facility] [address] [phone] Venkata Mejia, DPM Hallux rigidus of right foot (Primary Dx); Type 2 diabetes mellitus with hyperglycemia ([facility] V24, [facility] V28); Acquired hallux valgus of right foot 03/13/2025 2:15 PM EDT Office Visit Bariatric Surgery [facility] [address] [phone] Francesca Bermudez PA Class 2 severe obesity due to excess calories with serious comorbidity and body mass index (BMI) of 36.0 to 36.9 in adult ([facility] V24, [facility] V28) (Primary Dx) 02/21/2025 10:00 AM EDT Nutrition Bariatric Surgery - [address] [place] [address] Class 2 [...] Comments Brother 1 Brother 2 Alive HTN, [place] at 55 y o Brother 3 mi [...] 10:00 AM EDT Nutrition Bariatric Surgery - [place] [address] [phone] Katty Stewart, RD 175 [facility] 120 [place] [address] 06/16/2025 2:30 PM EDT Office Visit Orthopedic Surgery - [place] [address] [address] Venkata Mejia, DPM [address] [address] Health Maintenance Due Date Last [...] Blood Venous blood specimen / Unknown Result [facility] Provider LAB BLOOD ORDERABLES Delisa l Result * Hemoglobin A1c (12/30/2015) Hemoglobin A1C 5.6 4.0 - 6.0 % Blood Venous blood specimen / Unknown Result [facility] Provider LAB BLOOD ORDERABLES Delisa l Result * HIV Screening (05/25/2013) HIV Screening abstracted Result [facility] Provider HEALTH MAINTENANCE Final Result * Hepatitis C Screening (05/25/2013) Hepatitis C Screening abstracted Result [facility] Provider HEALTH MAINTENANCE Final Result from Last 3 Months or Most Recently Relevant to Health Maintenance Insurance MEDICAID - [place] Care Teams Plasterer Stucco Relationship Specialty Start Date End Date Aaliyah Roche MD [address] [phone] PCP - General Internal Medicine 08/24/21
--- OUTSIDE RECORDS SUMMARY | 2025-05-13 13:40 | XMS_ITS | Encounter Summary ---
Author Organization [employer] Address [address] [facility] [address] [facility] [address]t [place] [address] Care Team Providers Care Teaching Supervisor Name Role Phone Aaliyah Roche MD Primary Care Provide r Deb Duncan RN Unavailable [phone] ySlvia Brumfield Unavailable Encounter Details Date Type Department Care Team ([facility] Contact Info) Description 01/06/2023 Orders Only [facility] MED & PEDS 505 [place], [place] [phone] Alyssa Mackey LPN Social History Tobacco Use [...] Upcoming Encounters Date Type Department Care Team ([facility] Contact Info) Description 06/11/2025 10:45 AM EDT Office Visit [facility] MEDICINE 230 [place], [place] [phone] Aaliyah Roche MD 230 [place], [place] [phone] documented as of this encounter Visit Diagnoses Not on filedocumented in this encounter Care Teams Teaching Supervisor Relationship Specialty Start Date End Date Aaliyah Roche MD 230 [place] [address] PCP - General Family Medicine 07/03/19 Deb Duncan RN [address] [place] [address] Registered Nurse Family Medicine 03/31/25 Sylvia Brumfield 03/31/25 documented as of this encounter
--- OUTSIDE RECORDS SUMMARY | 2025-05-13 13:40 | XMS_ITS ---
Author Organization [employer] Address [address] [facility] 7t [place] [address] Care Team Providers Care Refrigeration Engine Operator Name Role Phone Aaliyah oRche MD Primary Care Provide r Deb Duncan RN Unavailable [phone] Sylvia Brumfield Unavailable CM Complex Status:Enrolled (Active) Start date:03/31/2025 Enrollment date:04/09/2025 Enrollment reason:ADT Feed Overview ED- Pt went [place] [facility] [place]. Case Team Name Relationship Phone Deb Duncan RN(Responsible Staff) Registered Nurse [phone] Continued Care and Services Coordination
--- OUTSIDE RECORDS SUMMARY | 2025-05-13 13:40 | XMS_ITS ---
Author Organization [employer] Address [address] [facility] 7t [place] [address] Care Team Providers Care Weather Stripper Name Role Phone Aaliyah Roche MD Primary Care Provide r Deb Duncan RN Unavailable [phone] Sylvia Brumfield Unavailable CHW Complex Status:Enrolled (Active) Start date:03/31/2025 Enrollment date:04/09/2025 Enrollment reason:ADT Feed Overview ED- [place] [facility] [place]. Please outreach for enrollment. Case Team Name Relationship Phone Sylvia Brumfield(Responsible Staff) [phone] Continued Care and Services Coordination
--- OUTSIDE RECORDS SUMMARY | 2025-05-13 13:40 | XMS_ITS | Encounter Summary ---
Author Organization [employer] Address [address] [facility] [address]t [place] [address] Care Team Providers Care Well Digger Name Role Phone Aaliyah Roche MD Primary Care Provide r Deb Duncan RN Unavailable [phone] Sylvia Brumfield Unavailable Reason for Visit * Reason Comments Med Refill Encounter Details Date Type Department Care Team (Late st Contact Info) Description 12/18/2024 Refill [facility] MEDICINE 230 [place], [place] [phone] Aaliyah Roche MD 230 [place], [place] [phone] Essential hypertension Social History Tobacco Use Types [...] Description 06/11/2025 10:45 AM EDT Office Visit [facility] MEDICINE 230 [place] [address] Aaliyah Roche MD 230 [place] [address] documented as of this encounter Visit Diagnoses Diagnosis Essential hypertension Unspecified essential hypertension documented in this encounter Additional Health Concerns Assessment Noted Time PHQ-9 Depression Total Score: 12 024 11:05 AM EDT documented as of this encounter Care Teams Well Digger Relationship Specialty Start Date End Date Aaliyah Roche MD 230 [place] [address] PCP - General Family Medicine 07/03/19 Deb Duncan RN [address] [place] [address] Registered Nurse Family Medicine 03/31/25 Sylvia Brumfield 03/31/25 documented as of this encounter
--- OUTSIDE RECORDS SUMMARY | 2025-05-13 13:40 | XMS_ITS | Clinical Summary ---
Author Organization [facility] Address [address] [place] [address] Care Team Providers Care Cold Storage Superintendent Name Role Phone Sabra Lim Primary Care [...] patient's age to complete this topic Insurance [employer] Care Teams Cold Storage Superintendent Relationship Specialty Start Date End Date Sabra Lim [address] [place] [address] JOSE G Barrera [id number] PCP - General 09/04/20
--- OUTSIDE RECORDS SUMMARY | 2025-05-13 13:40 | XMS_ITS | Encounter Summary ---
Author Organization [employer] Address [address] [place] [address] Care Team Providers Care Electrical Power Station Technician Name Role Phone Aaliyah Roche MD Primary Care Provide r Deb Duncan RN Unavailable [phone] Sylvia Brumfield Unavailable Reason for Visit * Reason Comments Med Change Request Encounter Details Date Type Department Care Team ([facility] st Contact Info) Description 03/05/2025 Refill [facility] [address] [place], [place] [phone] Aaliyah Roche MD [address] [place], [place] [phone] Neuropathy Social History Tobacco Use Types Packs/Day [...] Description 06/11/2025 10:45 AM EDT Office Visit [facility] [address] [place] [address] Aaliyah Roche MD [address] [place] [phone] documented as of this encounter Visit Diagnoses Diagnosis Neuropathy Mononeuritis of unspecified site documented in this encounter Additional Health Concerns Assessment Noted Time PHQ-9 Depression Total Score: 0 03/05/20 8:59 AM EDT documented as of this encounter Care Teams Electrical Power Station Technician Relationship Specialty Start Date End Date Aaliyah Roche MD [address] [place] [id number] PCP - General Family Medicine 07/03/19 Deb Duncan, KIANA [address] [place] [id number] Registered Nurse Family Medicine 03/31/25 Sylvia Brumfield 03/31/25 documented as of this encounter
--- OUTSIDE RECORDS SUMMARY | 2025-05-13 13:40 | XMS_ITS | Encounter Summary ---
Author Organization [employer] Address [address] [place] [address] Care Team Providers Care Atmospheric Technician Name Role Phone Aaliyah Roche MD Primary Care Provide r Deb Duncan RN Unavailable [phone] Sylvia Brumfield Unavailable Reason for Visit * Reason Comments Med Refill Encounter Details Date Type Department Care Team (Late st Contact Info) Description 10/21/2024 Refill [facility] [address] [place], [place] [phone] Aaliyah Roche MD [address] [place], [place] [phone] Dyslipidemia Social History Tobacco Use Types Packs/Day [...] Description 06/11/2025 10:45 AM EDT Office Visit [facility] [address] [place] [phone] Aaliyah Roche MD [address] [place] [address] documented as of this encounter Visit Diagnoses Diagnosis Dyslipidemia Other and unspecified hyperlipidemia documented in this encounter Additional Health Concerns Assessment Noted Time PHQ-9 Depression Total Score: 12 024 11:05 AM EDT documented as of this encounter Care Teams Atmospheric Technician Relationship Specialty Start Date End Date Aaliyah Roche MD [address] [place] [address] PCP - General Family Medicine 07/03/19 Deb Duncan RN [address] [place] [phone] Registered Nurse Family Medicine 03/31/25 Sylvia Brumfield 03/31/25 documented as of this encounter
--- OUTSIDE RECORDS SUMMARY | 2025-05-13 13:40 | XMS_ITS | Encounter Summary ---
Author Organization [employer] Address [address] [place] [address] Care Team Providers Care Physics Technician Name Role Phone Aaliyah Roche MD Primary Care Provide r Deb Duncan RN Unavailable [phone] Sylvia Brumfield Unavailable Reason for Visit * Reason Onset Date Comments Med Change Request Durable Medical Equipment 04/15/2025 DME Or pako: Blood Pressure Monitor. Encounter Details Date Type Department Care Team (Late st Contact Info) Description 04/15/2025 Refill [facility] [address] [place] [address] Aaliyah Roche MD [address] [place], [place] [phone] Social History Tobacco Use Types Packs/Day Years [...] was generated and sent via FAX to [facility]. Confirmation was uploaded to Media. documented in this encounter Plan of Treatment Upcoming Encounters Date Type Department Care Team (Late st Contact Info) Description 06/11/2025 10:45 AM EDT Office Visit [facility] [address] [place] [address] Aaliyah Roche MD [address] [place] [address] documented as of this encounter Visit Diagnoses Not on filedocumented in this encounter Additional Health Concerns Assessment Noted Time PHQ-9 Depression Total Score: 0 04/09/20 25 3:16 PM EDT documented as of this encounter Care Teams Physics Technician Relationship Specialty Start Date End Date Aaliyah Roche MD [address] [place] [address] PCP - General Family Medicine 07/03/19 Deb Duncan RN [address] [place] [phone] Registered Nurse Family Medicine 03/31/25 Sylvia Brumfield 03/31/25 documented as of this encounter
--- OUTSIDE RECORDS SUMMARY | 2025-05-13 13:40 | XMS_ITS | Clinical Summary ---
Author Organization [employer] Address [address] [facility] 7t [place] [address] Care Team Providers Care Materials Specialist Name Role Phone Aaliyah Roche MD Primary Care Provide r Deb Duncan RN Unavailable [phone] Sylvia Brumfield Unavailable Allergies Active Allergy Reactions Criticality Noted Date Comments Baclofen Rash High 01/12/2009 Other reaction(s): full body rash Cyclobenzaprine Rash Low 05/14/2021 Duloxetine High 02/10/2023 Other reaction(s): Nightmare Medications glucose blood test stripIndication s:Impaired fasting glucose Use daily to check finger stick BS 100 each 12 023 Active Additional Information Patient not taking.Reported on 04/09/2025 Symbicort 160-4.5 MCG/ACT inhaler 023 Active metFORMIN XR (Glucophage-XR) 500 MG 24 hr tabletIndicatio ns:Prediabetes TAKE 1 TABLET BY MOUTH WITH EVENING MEAL 90 tablet 1 024 Active Additional Information Patient not taking.Reported on 04/09/2025 prazosin (Minipress) 1 MG capsule TAKE 1 CAPSULE BY MOUTH EVERYDAY AT BEDTIME 90 capsule 1 024 Active Additional Information Patient not taking.Reported on 04/09/2025 Diclofenac Sodium 1 % gelIndications: Arthralgia, unspecified joint APPLY 2 GRAMS TO THE AFFECTED AREA 3 TIMES A DAY NEEDED 100 g 2 024 Active carvedilol (Coreg) 25 MG tablet TAKE 2 TABLETS BY MOUTH TWICE A DAY WITH FOOD 360 tablet 1 024 Active Ventolin HFA 108 (90 Base) MCG/ACT inhaler Inhale 2 puffs every 6 (six) hours. Active Azelastine HCl 137 MCG/SPRAY solution SPRAY 2 SPRAYS INTO EACH NOSTRIL TWICE A DAY FOR 30 DAYS Active fluticasone (Flonase) 50 MCG/ACT nasal spray Administer 1 spray into each nostril Once per day. Active ipratropium (Atrovent) 0.03 % nasal spray Administer 2 sprays into each nostril in the morning and 2 sprays at noon and 2 sprays in the evening. Active pravastatin (Pravachol) 20 MG tabletIndicatio ns:Essential hypertension Take 1 tablet (20 mg) by mouth Once per day. 30 tablet 2025 Active albuterol (2.5 MG/3ML) 0.083% nebulizer solution Take 3 mL (2.5 mg) by nebulization every 6 (six) hours if needed for wheezing or shortness of breath. 75 mL 1 2025 Active Nebulizer misc 1 Units Every 4-6 hours as needed (Q6 hr PRN per albuterol order). Pt provided Acceleron Nebulizer machine. Education provided. Pt verbalized understanding. Active lisinopril 20 MG tabletIndicatio ns:Essential hypertension TAKE 1 TABLET BY MOUTH EVERY DAY IN THE MORNING 90 tablet 1 Active permethrin (Elimite) 5 % creamIndication s:Scabies apply to skin from hairline to toes and wash off 8-10 hours later 60 g 1 Active Additional Information Patient not taking.Reported on 04/09/2025 Alpha-Lipoic Acid 600 MG capsuleIndicati ons:Neuropathy Take 1 capsule (600 mg) by mouth Once per day. 90 capsule Active predniSONE (Deltasone) 10 MG tabletIndicatio ns:Allergic dermatitis due to poison kiya Take by oral route daily. 6 tabs (=60mg) on day 1-2; 5 tabs (=50mg) on day 3-4; 4 tabs (=40mg) on day 5-6; 3 tabs (=30mg) on day 7-8; 2 tabs (=20mg) on day 9-10; 1 tab on day 11-12; 1/2 tab on day 13-14 43 tablet Active Additional Information Patient not taking.Reported on 04/09/2025 clotrimazole (Lotrimin) 1 % cream Apply topically 2 times daily. 60 g 1 025 Active Blood Pressure kitIndications: Primary hypertension Please use to check BP as directed 1 kit 025 Active amLODIPine (Norvasc) 10 MG tablet TAKE 1 TABLET BY MOUTH EVERY DAY IN THE MORNING 90 tablet 1 025 Active amLODIPine (Norvasc) 10 MG tablet TAKE 1 TABLET BY MOUTH EVERY DAY IN THE MORNING 90 tablet 1 025 2024 Discontinued Blood Pressure kit Please use to check BP as directed 1 kit 025 2024 Discontinued(R eorder (will not trigger notification to Pharmacy)) Active Problems Problem Noted Date Diagnosed Date [...] macrobid Encounter for preventative adult health care ramsse sunation 05/30/2023 Assessment & Plan (05/30/2023 4:17 PM [...] meals. Check fgstk daily, glucometer sent to [facility] pharmacy Encouraged physical activity as tolerated. [...] Neg cardiac w/u and cta HH 04/2015 [facility] / nuclear stress done Encounters Date Type Department Care Team Description 05/09/[address] [address] Aaliyah Roche MD 05/07/2025 Patient Outreach [address] [address] Aaliyah Roche MD Care Coordination ([facility] f/u) 05/07/2025 Patient Outreach [address] [address] Aaliyah Roche MD Care Management ([facility]- f/u call) 04/23/2025 Patient Outreach [address] [address] Aaliyah Roche MD Care Coordination ([facility] f/u) 04/23/2025 Patient Outreach [address] [address] Aaliyah Roche MD Care Management ([facility]- f/u call) 04/21/2025 9:00 AM EDT Office Visit [facility] [address] [place] [address] Yung Dao MD Rash (Primary Dx) 04/21/2025 Refill [facility] MED[facility]INE [address] [place] [address] Jodi Chen RN Primary hypertension 04/21/2025 Travel 04/15/2025 Refill [facility] [address] [place] [address] Aaliyah Roche MD 04/14/[address] [address] Aaliyah Roche MD 04/10/[address] [address] Aaliyah Roche MD 04/10/2025 Plan of Care Documentation [address] [address] 04/09/2025 Patient Outreach [address] [address] Aaliyah Roche MD Care Management ([facility]- initial assessment/ enrollment) 04/09/[address] [address] Aaliyah Roche MD 04/09/2025 Patient Outreach [address] [address] Aaliyah Roche MD Care Coordination ([facility]) 04/08/2025 Patient Outreach [address] [address] Aaliyah Roche MD Care Coordination ([facility] outreach) 03/31/2025 Patient Outreach [address] [address] Aaliyah Roche MD Care Coordination ([facility] outreach) 03/31/2025 Patient Outreach [address] [address] Aaliyah Roche MD Care Coordination (W chart review) 03/31/2025 Patient Outreach [address] [address] Aaliyah Roche MD Care Management ([facility]- chart review) 03/31/2025 Patient Outreach [address] [address] Aaliyah Rohce MD 03/25/[address] [address] Aaliyah Roche MD Durable Medical Equipment (DME Request: Shower Chair Replacement) 03/18/2025 7:00 PM EDT [facility] [address] [address] Cielo Esparza FNP Cellulitis of forearm, left (Primary Dx) 03/18/2025 Travel 03/07/2025 9:20 AM EDT [facility] [address] [address] David Pizano MD Allergic dermatitis due to poison kiya (Primary Dx) 03/07/2025 Travel 03/05/2025 9:30 AM EDT Office Visit [address] [address] Aaliyah Roche MD Neuropathy (Primary Dx); Scabies 03/05/2025 Orders Only GENERIC EXTERNAL DATA DEPARTMENT Provider, Generic External Data 03/05/[address] [address] Aaliyah Roche MD Neuropathy 03/05/2025 Travel 02/11/[address] [address] Aaliyah Roche MD Essential hypertension from Last [...] Sign Reading Time Taken Comments Blood Pressure 134/74 04/21/2025 8:54 AM EDT Pulse 58 04/21/2025 8:54 AM EDT Temperature 36.7 C (98.1 F) 04/21/2025 8:54 AM EDT Respiratory Rate 17 04/21/2025 8:54 AM EDT Oxygen Saturation 98% 04/21/2025 8:54 AM EDT Inhaled Oxygen Concentration - - Weight 114 kg (250 lb 6.4 oz) 04/21/2025 8:54 AM EDT Height 177.8 cm (5' 10 ) 03/05/2025 8:57 AM EDT Body Mass Index 35.93 03/05/2025 8:57 AM EDT Plan of Treatment Upcoming Encounters Date Type Department Care Team (Late st Contact Info) Description 06/11/2025 10:45 AM EDT Office Visit [facility] [address] [place] [address] Aaliyah Roche MD [address] [place] [address] Health Maintenance Due Date Last Done Comments CT Colonography 1965 Colonoscopy 1965 FIT 1965 HIV Screening 1965 Sigmoidoscopy 1965 Derm Melanoma Skin Check 1965 Diabetes: Foot Exam 1975 Hepatitis C Screening 1983 Zoster Vaccines (1 of 2) 2015 DTaP/Tdap/Td Vaccines (2 - Td or Tdap) 05/21/2023 05/21/2013 FOBT 06/08/2024 06/08/2023 RSV Patients and Patients Aged 60 years or older (1 - Risk 60-74 years 1-dose series) 2025 Influenza Vaccine (#1) 2025 , 05/30/2023, 09/07/2022, Additional history exists Diabetes: Hemoglobin A1C 05/16/2025 025, 06/05/2024, 08/10/2023, Additional history exists Alcohol/Substance Use Screening 07/31/2025 07/31/2024 Lipid Panel 09/13/2025 09/13/2024, 04/28, 03/10/2022, Additional history exists Eye Exam 12/19/2025 12/20/2023, 11/27, 12/20/2023, Additional history exists Diabetes: Urine Protein Screening 03/05/2026 03/05/2025, 04/23/2024, 02/01/2024, Additional history exists Disability Screening 03/05/2026 03/05/2025 Depression Screening 04/09/2026 04/09/2025, 04/09/20 SDOH Screening 04/09/2026 04/09/2025 Tobacco Screening 04/21/2026 04/21/2025 Colorectal Cancer Screening 06/08/2026 FIT DNA/Cologuard 06/08/2026 06/08/2023 Pneumococcal Vaccine: 50+ Years Completed 01/23/2024, 09/20/2019, [...] Procedure Name Priority Date/Time Associated Diagnosis Comments XR SHOULDER 2+ VIEWS LEFT Routine 03/29/2025 4:37 PM EDT URINE PROTEIN, TOTAL, RANDOM (W/O CREATININE) Routine 03/05/2025 10:18 AM EDT CREATININE, RANDOM URINE Routine 03/05/2025 10:18 AM EDT BASIC METABOLIC PANEL Routine 03/05/2025 10:18 AM EDT URINALYSIS, COMPLETE Routine 03/05/2025 10:18 AM EDT POCT GLYCATED HEMOGLOBIN, TOTAL Routine 11/13/2024 2:22 PM EDT Type 2 diabetes mellitus with hyperglycemia, without long-term current use of insulin ([facility]) LIPID PANEL, STANDARD Routine 09/13/2024 10:16 AM EST Class 3 severe obesity due to excess calories with serious comorbidity and body mass index (BMI) of 40.0 to 44.9 in adult ([facility]) LAB COLOGUARD COLON CANCER SCREEN Routine 06/08/2023 8:20 AM EDT Colon cancer screening from Last 3 Months or Most Recently Relevant to Health Maintenance Results * XR Shoulder 2+ Views Left (03/29/2025 4:37 PM EDT) Anatomical Region Laterality Modality Upper Extremities, Shoulder Left Radi ographic Imaging 03/29/2025 4:37 PM EDT Narrative 03/29/2025 4:38 PM EDT [address] [address] XRay Report Signed Patient: Silvestre Villalobos MR#: [id number] 73 : 1965 Acct:[id number] Age/Sex: 59 / M ADM Date: 03/29/25 Loc: HO.ED Attending Dr: Ordering Physician: Jessica Palmer CNP Date of Service: 03/29/25 Procedure(s): XR shoulder LT min 2V Accession Number(s): [id number] cc: Aaliyah Roche MD; Jessica Palmer CNP CLINICAL HISTORY: lifting injury, loud crack, pain 3 views left shoulder Comparison: None Findings: No fractures or dislocations No significant arthritic change No radiopaque foreign body. There is soft tissue calcification in the posterior margin of the acromion extending to the acromial humeral interval. There is acromioclavicular arthropathy. Glenohumeral joint is in good alignment. Normal visualized left chest Impression: Soft tissue calcification/osteophyte extending from the acromion to the posterior aspect of the acromial humeral interval. No acute skeletal abnormality. This document has been electronically signed by: Juan Diego Long MD on 03/29/2025 16:37:07 Dictated By: Juan Diego Long MD Signed By: <Electronically signed by Juan Diego Long MD in OV> 03/29/25 1638 DD/ 163 TD/TT: 03/29/25 163 Scraper Tender: Procedure Note Donotuseinterpreter, Image - 03/29/2025 [place] [address] XRay Report Signed Patient: Silvestre Villalobos [facility]#: [id number] 73 : 1965Acct:[id number] Age/Sex: 59 / MADM Date: 03/29/25 Loc: .ED Attending Dr: Ordering Physician: Jessica Palmer CNP Date of Service: 03/29/25 Procedure(s): XR shoulder LT min 2V Accession Number(s): [id number] cc: Aaliyah Roche MD; Jessica Palmer CNP CLINICAL HISTORY: lifting injury, loud crack, pain 3 views left shoulder Comparison: None Findings: No fractures or dislocations No significant arthritic change No radiopaque foreign body. There is soft tissue calcification in the posterior margin of the acromion extending to the acromial humeral interval. There is acromioclavicular arthropathy. Glenohumeral joint is in good alignment. Normal visualized left chest Impression: Soft tissue calcification/osteophyte extending from the acromion to the posterior aspect of the acromial humeral interval. No acute skeletal abnormality. This document has been electronically signed by: Juan Diego Long MD on 03/29/2025 16:37:07 Dictated By: Juan Diego Long MD Signed By: <Electronically signed by Juan Diego Long MD in OV> 03/29/25 1638 DD/ 1637 TD/TT: 03/29/25 1637 Scraper Tender: [facility] External Provider IMG XR PROCEDURES Edited Result - Final * (ABNORMAL) Urine Protein, Total, Random without Creatinine (03/05/2025 10:18 AM EDT) Protein, Total, Random Urine 27(H) <12 mg/dL [facility] 03/05/2025 10:1 8 AM EDT 03/05/2025 12:04 PM EDT Generic External Data Provider LAB URINE ORDERAB LES Final Result Performing Organization Address [facility]/ZIP Co de Phone Number [facility] [address] [place] [phone] * Creatinine, Random Urine (03/05/2025 10:18 AM EDT) Creatinine, Urine 296.31 mg/dL [facility] 03/05/2025 10:1 8 AM EDT 03/05/2025 12:04 PM EDT Generic External Data Provider LAB URINE ORDERAB LES Final Result Performing Organization Address [facility] Co de Phone Number [facility] [address] [place] [phone] * (ABNORMAL) Urinalysis Complete (03/05/2025 10:18 AM EDT) Color Urine Dark Yellow [facility] Appearance Urine Turbid [facility] PH 6.0 5.0 - 9.0 [facility] Glucose Urine UA Negative Negative mg/dL [facility] Urine Blood Moderate (2+)(A) Negative [facility] Specific [place] - Urine 1.025 1.005 - 1.025 [facility] Urine Protein Trace Neg-Trace mg/dL [facility] Urine Ketones Negative Negative mg/dL [facility] Nitrite Urine Negative Negative [facility] Leukocyte Esterase Urine Negative Negative [facility] RBC Urine >20(A) 0 - 2 /HPF [facility] Urine WBC 0-5 0 - 5 /HPF [facility] Urine Squamous Epithelial Cell 0-2 0 - 2 /HPF [facility] Urine Bacteria None Seen None Seen [facility] Hyaline Casts, Urine 0-2 0 - 2 /LPF [facility] 03/05/2025 10:1 8 AM EDT 03/05/2025 12:04 PM EDT us Generic External Data Provider LAB URINE ORDERAB LES Final Result [facility] [address] [place] [phone] * (ABNORMAL) Basic Metabolic Panel (03/05/2025 10:18 AM EDT) Sodium 140 135 - 145 mmol/L [facility] Potassium 4.0 3.3 - 5.1 mmol/L [facility] Chloride 107 96 - 108 mmol/L [facility] Carbon Dioxide 25 22 - 29 mmol/L [facility] Anion Gap 12 12 - 20 [facility] Urea Nitrogen (BUN) 17(H) 9 - 16 mg/dL [facility] Creatinine, Serum 0.79 0.5 - 1.4 mg/dL [facility] Estimated Glomerular Filt Rate >60 [facility] Comment:Chronic Kidney Disea se: Estimated GFR < 60 mL/min/[id number] Kidney Disease: Estimated GFR < 15 mL/min/1.73m2 Glucose 98 60 - 115 mg/dL [facility] Calcium 9.1 8.4 - 10.2 mg/dL [facility] 03/05/2025 10:1 8 AM EDT 03/05/2025 12:00 PM EDT us Generic External Data Provider LAB BLOOD ORDERAB LES Final Result [facility] [address] [place] [phone] * POCT HGB A1C (11/13/2024 2:22 PM EDT) Hemoglobin A1C 5.6 4.0 - 6.0 % QC Media Lot # [id number] Lot# Expiration Date Blood 11/13/2024 2:22 PM EDT us Aaliyah Hernandez MD POINT OF CARE TEST EN TER/EDIT ORDERABLES Final Result * (ABNORMAL) Lipid Panel, Standard (09/13/2024 10:16 AM EST) Triglycerides 209(H) <150 mg/dL [facility] Comment:Desirable Triglyceri de: less than 150 mg/dLBorderline High Triglyceride 150-199 mg/dLHigh Triglyceride: 200-499 mg/dLVery High Triglyceride: greater than or equal to 5OO mg/dL Cholesterol 212(H) <200 mg/dL [facility] Comment:Desirable Cholestero l: less than 200 mg/dLBorderline High Cholesterol: 200-239 mg/dLHigh Cholesterol: greater than 239 mg/dL LDL Cholesterol Calculated 140(H) <100 mg/dL [facility] Comment:Desirable LDL: less than 100 mg/dLNear Optimal/Above Optimal LDL: 110- 129 mg/dLBorderline High LDL: 130-159 mg/dLHigh LDL: 160-189 mg/dLVery High LDL: greater than or equal to 190 mg/dL HDL Cholesterol 31(L) >40 mg/dL [facility] Comment:Desirable HDL: great er than 40 mg/dL Note: This HDL assay may give artificially low results in patients with liver disease. Blood Venous blood specimen / Unknown 09/13/2024 10:16 AM EST 09/13/2024 11:30 AM EST Aaliyah Hernandez MD LAB BLOOD ORDERABLES Final Result [facility] [address] [place] [phone] * Cologuard?? colon cancer screening (06/08/2023 8:20 AM EDT) Cologuard Result Negative Negative 06/15/20 4:38 AM EDT [facility] (CLIA #:[id number]) Comment: NEGATIVE TEST RESULT. A negative Cologuard [...] (Terrance Ellison al, N Engl J Med 2014;370(14):6046-4516) The normal value (reference range) for this assay is negative. COLOGUARD RE-SCREENING RECOMMENDATION: Periodic colorectal cancer screening is an important part of preventive healthcare for asymptomatic individuals at average risk for colorectal cancer. Following a negative Cologuard result, the [place] [employer] Society and U.S. Multi-Society Task Force screening guidelines recommend a Cologuard re-screening interval of 3 years. References: [place] [employer] Guideline for Colorectal Cancer Screening: https://www.cancer.org/cancer/okdnh-efhyoj-lhrgak/rdlcuqjts-pjmkucrim-yehpeje/ac s-rec ommendations.html.; Ming DK, Branden CR, Doc TREVIÑO, Colorectal Cancer Screening: Recommendations for Physicians and Patients from the U.S. Multi-Society Task Force on Colorectal Cancer Screening , Am J Gastroenterology 2017; 112:5138-8008. TEST DESCRIPTION: Composite algorithmic analysis of stool [...] (Terrance Ellison al, N Engl J Med 2014;370(14):2683-7604.) Cologuard may produce a false negative or false positive result (no colorectal cancer or precancerous polyp present at colonoscopy follow up). A negative Cologuard test result does not guarantee the absence of CRC or advanced adenoma (pre-cancer). The current Cologuard screening interval is every 3 years. ([place] [employer] and U.S. Multi-Society Task Force). Cologuard performance data in a 10,000 patient pivotal study using colonoscopy as the reference method can be accessed at the following location: www.Clixtr.com/results. Additional description of the Cologuard test process, warnings and precautions can be found at www.[employer].com. Stool specimen (specimen) 06/08/2023 8:20 AM EDT 06/09/2023 3:33 PM EDT Aaliyah Hernandez MD LAB MOLECULAR DIAGNOS TICS ORDERABLES Final Result [facility] (CLIA #:[id number]) [place] [address] [place] [address], from Last 3 Months or Most Recently Relevant to Health Maintenance Insurance [facility] C3 Care Teams Materials Specialist Relationship Specialty Start Date End Date Aaliyah Roche MD [address] [place] [address] PCP - General Family Medicine 07/03/19 Deb Duncan RN [address] [place] [address] Registered Nurse Family Medicine 03/31/25 Sylvia Brumfield 03/31/25
--- OUTSIDE RECORDS SUMMARY | 2025-05-13 13:40 | XMS_ITS | Encounter Summary ---
Author Organization [employer] Address [address] [place] [address] Care Team Providers Care Immigration Consultant Name Role Phone Aaliyah Roche MD Primary Care Provide r Deb Duncan RN Unavailable [phone] Sylvia Brumfield Unavailable Reason for Visit * Reason Comments Med Refill Encounter Details Date Type Department Care Team (Late st Contact Info) Description 05/09/2025 Refill [facility] [address] [place] [address] Aaliyah Roche MD [address] [place], [place] [phone] Social History Tobacco Use Types Packs/Day Years [...] 10:45 AM EDT Office Visit [facility] [address] [place] [address] Aaliyah Roche MD [address] [place] [address] documented as of this encounter Visit Diagnoses Not on filedocumented in this encounter Additional Health Concerns Assessment Noted Time PHQ-9 Depression Total Score: 0 04/09/20 3:16 PM EDT documented as of this encounter Care Teams Immigration Consultant Relationship Specialty Start Date End Date Aaliyah Roche MD [address] [place] [address] PCP - General Family Medicine 07/03/19 Deb Duncan, KIANA [address] [place] [phone] Registered Nurse Family Medicine 03/31/25 Sylvia Brumfield 03/31/25 documented as of this encounter
--- OUTSIDE RECORDS SUMMARY | 2025-05-13 13:40 | XMS_ITS | Encounter Summary ---
Author Organization [employer] Address [address] [facility] [address] [place] [address] Care Team Providers Care Soda Clerk Name Role Phone Aaliyah Roche MD Primary Care Provide r Deb Duncan RN Unavailable [phone] Sylvia Brumfield Unavailable Reason for Visit * Reason Comments Med Refill Encounter Details Date Type Department Care Team (Late Contact Info) Description 03/12/2023 Refill [facility] [address] [place], [place] [phone] Dominga Enrique MD [address] [place] [phone] Dyslipidemia Social History Tobacco Use Types Packs/Day [...] Description 06/11/2025 10:45 AM EDT Office Visit [facility] [address] [place] [address] [phone] Aaliyah Roche MD [address] [place] [address] [phone] documented as of this encounter Visit Diagnoses Diagnosis Dyslipidemia Other and unspecified hyperlipidemia documented in this encounter Care Teams Soda Clerk Relationship Specialty Start Date End Date Aaliyah Roche MD [address] [place] [address] PCP - General Family Medicine 07/03/19 Deb Duncan RN [address] [place] [address] Registered Nurse Family Medicine 03/31/25 Sylvia Brumfield 03/31/25 documented as of this encounter
--- OUTSIDE RECORDS SUMMARY | 2025-05-13 13:40 | XMS_ITS | Clinical Summary ---
Author Organization [facility] Address [address] [place] [address] Phone Care Team Providers Care Parts Driver Name Role Phone Aaliyah Roche MD Primary Care Provider Tyree Weber MD Unavailable [phone] Allergies Active Allergy Reactions Criticality Noted Date [...] topic Medical Devices Not on file Insurance [facility] C3 ACO [facility] C3 ACO [facility] C3 ACO [facility] C3 ACO [facility] C[address] [place] [address] [place] [address] C3 ACO Care Teams Parts Driver Relationship Specialty Start Date End Date Aaliyah Roche MD [address] [place] [address] PCP - General Internal Medicine 04/29/20 Tyree Weber MD [address] [place] [address] Induction Machine Operator Cardiology 05/28/20 Additional Source Comments The information contained in this document represents components of the legal health record. It is not the complete legal health record.[facility]
--- OUTSIDE RECORDS SUMMARY | 2025-05-13 13:40 | XMS_ITS | Encounter Summary ---
Author Organization [employer] Address [address] [facility] [address] [place] [address] Care Team Providers Care Cartridge Gauger Name Role Phone Aaliyah Roche MD Primary Care Provide r Deb Duncan RN Unavailable [phone] Sylvia Brumfield Unavailable Reason for Visit * Reason Comments Med Refill Encounter Details Date Type Department Care Team (Late st Contact Info) Description 12/21/2024 Refill [facility] [address] [place], [place] [phone] Aaliyah Roche MD [address] [place], [place] [phone] Essential hypertension Social History Tobacco Use Types [...] Description 06/11/2025 10:45 AM EDT Office Visit [facility] [address] [place] [address] Aaliyah Roche MD [address] [place] [address] documented as of this encounter Visit Diagnoses Diagnosis Essential hypertension Unspecified essential hypertension documented in this encounter Additional Health Concerns Assessment Noted Time PHQ-9 Depression Total Score: 12 024 11:05 AM EDT documented as of this encounter Care Teams Cartridge Gauger Relationship Specialty Start Date End Date Aaliyah Roche MD [address] [place] [address] PCP - General Family Medicine 07/03/19 Deb Duncan RN [address] [place] [address] Registered Nurse Family Medicine 03/31/25 Sylvia Brumfield 03/31/25 documented as of this encounter
== END 2025-05-13 10:52 | disposition home or self-care (01) ==
LOC: HO.HCS 10:24
PROVIDERS: PCP Internal Medicine; Visit Provider Internal Medicine Cardiovascular Disease
DX: I71.20 Thoracic aortic aneurysm, without rupture, unspecified (principal); I10 Essential (primary) hypertension
CPT/HCPCS: 93010; 99214

== ENCOUNTER → 2025-05-13 10:23 | Outpatient (BNVA) | payer MEDICAID, SELFPAY | PROVIDERS: PCP Internal Medicine; Visit Provider Internal Medicine Cardiovascular Disease | DX: I10 Essential (primary) hypertension (principal); I71.20 Thoracic aortic aneurysm, without rupture, unspecified | CPT/HCPCS: 93005; 99212 ==

== ENCOUNTER → 2025-06-20 14:41 | Outpatient (REF) | payer MEDICAID, SELFPAY ==
--- OUTSIDE RECORDS SUMMARY | 2025-06-18 10:15 | XMS_ITS | Encounter Summary ---
Author Organization [employer] Address [address] [facility] [address] [place] [address] Care Team Providers Care Outer Diameter Technician Name Role Phone Aaliyah Roche MD Primary Care Provide r Deb Duncan RN Unavailable Sylvia Brumfield Unavailable Encounter Details Date Type Department Care Team (Latest Contact Info) Description 06/18/2025 10:15 AM EDT Office Visit [facility] [address] [place] [address] Aaliyah Orozco MD [address] [place] [address] Costochondritis (Primary Dx); Type 2 diabetes mellitus with hyperglycemia, without long-term current use of insulin (HCC); Chest discomfort Social History Tobacco Use Types Packs/Day Years [...] Sign Reading Time Taken Comments Blood Pressure 120/62 06/18/2025 10:47 AM EDT Pulse 68 06/18/2025 10:47 AM EDT Temperature 36.2 C (97.1 F) 06/18/2025 10:47 AM EDT Respiratory Rate 20 06/18/2025 10:47 AM EDT Oxygen Saturation 98% 06/18/2025 10:47 AM EDT Inhaled Oxygen Concentration - - Weight 112 kg (246 lb 9.6 oz) 06/18/2025 10:47 A M EDT Height 177.8 cm (5' 10 ) 06/18/2025 10:47 AM EDT Body Mass Index 35.38 06/18/2025 10:47 AM EDT documented in this encounter Progress Notes * Aaliyah Daniel MD - 06/18/2025 10:15 AM EDT Subjective Patient ID: Silvestre Vazquez is a 60 y.o. 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 Chest pain felt unlikely to be cardiac. Given history of PUD pxed sucralfate for 14 days. Advised to avoid NSAIDs. Pt states pain is still present ,unchanged ,started just few days after had surgery a month ago andstarted a day after stopped taking oxycodone. States pain is substernal radiated to both side of chest and is felt in back as well ,states is reproduced w palpation and with movement .Denies Chest pressure, denies sweating, denies any cough, denies dizziness nor palpitations,denies also having any GERD, burning epigastric pain ,abdominal pain,N/V/D Does reports some fatigue Pt has tried taking tylenol and using lidoderm patches w no major effect Review of Systems Chest discomfort Objective BP 120/62 (BP Location: Left arm, Patient Position: Sitting, BP Cuff Size: Large adult) Pulse 68 Temp 97.1 ??F (36.2 ??C) (Temporal) Resp 20 Ht 5' 10 (1.778 m) Wt 246 lb 9.6 oz (112 kg) SpO2 98% BMI 35.38 kg/m?? Physical Exam Constitutional: General: He is not in acute distress. Appearance: Normal appearance. He is not ill-appearing, toxic-appearing or diaphoretic. HENT: Mouth/Throat: Mouth: Mucous membranes are moist. Eyes: General: No scleral icterus. Pupils: Pupils are equal, round, and reactive to light. Cardiovascular: Rate and Rhythm: Normal rate and regular rhythm. Comments: Reproduced pain w palpation over sternum,and paraspinal points of back Pulmonary: Effort: Pulmonary effort is normal. Breath sounds: Normal breath sounds. No wheezing or rhonchi. Abdominal: General: There is no distension. Palpations: Abdomen is soft. Tenderness: There is no abdominal tenderness. There is no guarding or rebound. Musculoskeletal: General: No swelling. Cervical back: Neck supple. No rigidity. Right lower leg: No edema. Left lower leg: No edema. Lymphadenopathy: Cervical: No cervical adenopathy. Skin: General: Skin is warm. Neurological: Mental Status: He is alert. Assessment/Plan Problem List Items Addressed This Visit Chest discomfort -CT Angio Chest, CT Angio Abdomen 06/10/25 No evidence of intramural hematoma. Unchanged ascending aortic aneurysm measuring up to 4.6 cm. Patient is status post endovascular stent placement for typeB aortic dissection. The stent extends from the aortic arch just distal to the left subclavian artery origin through the edge of the [id number] at the bilateral common iliac arteries. Unchanged hyperdense foci in the excluded aneurysm sac, with several examples annotated on series 605. The areasof enhancement in the excluded sac are also unchanged. Essentially unchanged size of the aneurysm sac measuring 5.6 x 5.8 cm. Persistent findings of a type III endoleak. No acute aortic dissection. Mild atherosclerotic plaque.Pulmonary arteries: Normal caliber. No evidence of pulmonary embolism on this nondedicated study. Abdominal aorta: No significant change of the endovascular stent involving the abdominal aorta. Hyperdensity and enhancement in the excluded aneurysm sac is again seen without significant change. No acute aortic dissection. Mild atherosclerotic plaque.Celiac axis: Patent with supply from true lumen. 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 Proximal common iliac arteries: Visualized biiliac stent is patent. Lungs and pleura: No consolidation. Trace right sided dependent atelectasis. Biapical paraseptal emphysema. No effusion or pneumothorax.Mediastinum and katie: No mass or hematoma. No mediastinal or hilar lymphadenopathy. No esophageal abnormality. Partially imaged thyroid is unremarkable. Heart: Heart is normal in size. No pericardial effusion. Severe LAD artery calcifications with mildcalcification in the remainder of the coronary arteries.Chest wall soft tissues: No acute abnormality. Diaphragm: Intact.Liver: Normal in attenuation and morphology. No suspicious lesion.Gallbladder: Absent consistent with prior cholecystectomy.Bile ducts: No biliary ductal dilation.Spleen: Normal in size.Pancreas: No suspicious lesion or ductal dilatation.Adrenal glands: No nodule.Kidneys and ureters: No hydronephrosis, stone, or suspicious lesion. Stomach, small bowel, and large bowel: Normal caliber stomach and bowel loops. No surrounding inflammatory changes. Peritoneum and retroperitoneum: No ascites or pneumoperitoneum. No omental or mesenteric lesions. Lymph nodes: No enlarged lymph nodes.Abdominal wall soft tissues: No acute abnormality.Bones: No acute abnormality. -chest x-ray 06/09/25 . No active disease in chest. -Today hb1AC capillary 5.8 CBG 103 Pt w significant cardiac history and recent aortic surgery w no apparent complications . Pt also has severe calcification in LAD With recent hospitalization r/o cardiac nature w neg Jefry and EKGs ,also neg image r/o PE,aortic dissection and PNA From exam here pain is completely reproduced w palpation over sternum and back as well with movement VS are normal and denies any other alarming symptoms at this time . States already saw vascular Surgeon recently who performed surgery and was told no concern that pain is associated w aortic surgery Seems from description of pain and from exam possible Costochondritis -Pt Reported that have a cardiology follow up on 06/20/25 -I called his pediatric urologist Dr Jeronimo today to confirm date but was not able to reach staff -left voice mail . Current symptom does not seem associated w cardiac nature but pt does have svere LAD diagnosis and needs f up w pediatric urologist, pt on statins and ASA -discuss w pt about repeating EKG today but refuse given had at recent hospitalization w neg workup -warm compresses advised QID -diclofenac topical, tylenol PRN -continue lidoderm patch -hold muscle relaxants w allergy reported to baclofen and cyclobenzaprine -oxycodone pxed low dose for 5 days until f w cardialogy -has apt w PCP 08/11/25 -alarm signs and symptoms in length if any alarming features to return to ED Relevant Medications oxyCODONE (Roxicodone) 5 MG immediate release tablet Diabetes mellitus (HCC) Relevant Orders POCT Glucose (Completed) POCT Hgb A1c (Completed) Other Visit Diagnoses Costochondritis - Primary Relevant Medications Diclofenac Sodium 1 % gel oxyCODONE (Roxicodone) 5 MG immediate release tablet documented in this encounter Miscellaneous Notes * Assessment & Plan Note - Aaliyah Daniel MD - 06/18/2025 11:29 PM EDTAssociated Problem(s): Chest discomfort -CT Angio Chest, CT Angio Abdomen 06/10/25 No evidence of intramural hematoma. Unchanged ascending aortic aneurysm measuring up to 4.6 cm. Patient is status post endovascular stent placement for typeB aortic dissection. The stent extends from the aortic arch just distal to the left subclavian artery origin through the edge of the lyvyb-hc-ywma at the bilateral common iliac arteries. Unchanged hyperdense foci in the excluded aneurysm sac, with several examples annotated on series 605. The areasof enhancement in the excluded sac are also unchanged. Essentially unchanged size of the aneurysm sac measuring 5.6 x 5.8 cm. Persistent findings of a type III endoleak. No acute aortic dissection. Mild atherosclerotic plaque.Pulmonary arteries: Normal caliber. No evidence of pulmonary embolism on this nondedicated study. Abdominal aorta: No significant change of the endovascular stent involving the abdominal aorta. Hyperdensity and enhancement in the excluded aneurysm sac is again seen without significant change. No acute aortic dissection. Mild atherosclerotic plaque.Celiac axis: Patent with supply from true lumen. 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 Proximal common iliac arteries: Visualized biiliac stent is patent. Lungs and pleura: No consolidation. Trace right sided dependent atelectasis. Biapical paraseptal emphysema. No effusion or pneumothorax.Mediastinum and katie: No mass or hematoma. No mediastinal or hilar lymphadenopathy. No esophageal abnormality. Partially imaged thyroid is unremarkable. Heart: Heart is normal in size. No pericardial effusion. Severe LAD artery calcifications with mildcalcification in the remainder of the coronary arteries.Chest wall soft tissues: No acute abnormality. Diaphragm: Intact.Liver: Normal in attenuation and morphology. No suspicious lesion.Gallbladder: Absent consistent with prior cholecystectomy.Bile ducts: No biliary ductal dilation.Spleen: Normal in size.Pancreas: No suspicious lesion or ductal dilatation.Adrenal glands: No nodule.Kidneys and ureters: No hydronephrosis, stone, or suspicious lesion. Stomach, small bowel, and large bowel: Normal caliber stomach and bowel loops. No surrounding inflammatory changes. Peritoneum and retroperitoneum: No ascites or pneumoperitoneum. No omental or mesenteric lesions. Lymph nodes: No enlarged lymph nodes.Abdominal wall soft tissues: No acute abnormality.Bones: No acute abnormality. -chest x-ray 06/09/25 . No active disease in chest. -Today hb1AC capillary 5.8 CBG 103 Pt w significant cardiac history and recent aortic surgery w no apparent complications . Pt also has severe calcification in LAD With recent hospitalization r/o cardiac nature w neg Jefry and EKGs ,also neg image r/o PE,aortic dissection and PNA From exam here pain is completely reproduced w palpation over sternum and back as well with movement VS are normal and denies any other alarming symptoms at this time . States already saw vascular Surgeon recently who performed surgery and was told no concern that pain is associated w aortic surgery Seems from description of pain and from exam possible Costochondritis -Pt Reported that have a cardiology follow up on 06/20/25 -I called his pediatric urologist Dr Jeronimo today to confirm date but was not able to reach staff -left voice mail . Current symptom does not seem associated w cardiac nature but pt does have svere LAD diagnosis and needs f up w pediatric urologist, pt on statins and ASA -discuss w pt about repeating EKG today but refuse given had at recent hospitalization w neg workup -warm compresses advised QID -diclofenac topical, tylenol PRN -continue lidoderm patch -hold muscle relaxants w allergy reported to baclofen and cyclobenzaprine -oxycodone pxed low dose for 5 days until f w cardialogy -has apt w PCP 08/11/25 -alarm signs and symptoms in length if any alarming features to return to ED documented in this encounter Plan of Treatment Upcoming Encounters Date Type Department Care Team (Late st Contact Info) Description 08/11/2025 9:15 AM EST Office Visit [facility] [address] [place] [phone] Aaliyah Roche MD [address] [place] [address] documented as of this encounter Procedures Procedure Name Priority Date/Time Associated Diagnosis Comments POCT GLYCATED HEMOGLOBIN, TOTAL Routine 06/18/2025 11:01 AM EDT Type 2 diabetes mellitus with hyperglycemia, without long-term current use of insulin (HCC) POCT GLUCOSE Routine 06/18/2025 10:48 AM EDT Type 2 diabetes mellitus with hyperglycemia, without long-term current use of insulin (HCC) documented in this encounter Results * (ABNORMAL) POCT Hgb A1c (06/18/2025 11:01 AM EDT) Hemoglobin A1C 5.8(A) 4.0 - 5.7 % QC Media Lot # [id number] Lot# Expiration Date , Blood 06/18/2025 11:0 1 AM EDT Aaliyah Daniel MD POINT OF CARE AYESHA T ENTER/EDIT ORDERABLES Final Result * POCT Glucose (06/18/2025 10:48 AM EDT) Glucose Blood, POC 103 60 - 200 mg/dL QC Media Lot # [id number] Lot# Expiration Date [id number] Blood Capillary blood specimen / Unknown 06/18/2025 10:48 AM EDT Aaliyah Daniel MD POINT OF CARE AYESHA T ENTER/EDIT ORDERABLES Final Result documented in this encounter Visit Diagnoses Diagnosis Costochondritis- Primary Tietze's disease Type 2 diabetes mellitus with hyperglycemia, without long-term current use of insulin (HCC) Chest discomfort Other chest pain documented in this encounter Additional Health Concerns Assessment Noted Time PHQ-9 Depression Total Score: 0 04/09/20 25 3:16 PM EDT documented as of this encounter Care Teams Outer Diameter Technician Relationship Specialty Start Date End Date Aaliyah Roche MD [address] [place] [address] PCP - General Family Medicine 07/03/19 Deb Duncan, KIANA [address] [place] [address] Registered Nurse Family Medicine 03/31/25 Sylvia Brumfield 03/31/25 [facility] 05/23/25 documented as of this encounter
--- NOTE | 2025-06-20 14:44 | CA_ITS ---
Transthoracic Echocardiogram Patient (Last, First, Middle): Silvestre Villalobos A Gender: Male Date of : 1965 Age: 60 Procedure Date: 06/20/2025 Procedure Type: Transthoracic Echocardiogram Location: OP Height: 177.8 cm Weight: 111.13 kg BSA: 2.28 m2 Heart Rate: bpm BP: 138 / 72 mmHg Editor City: [place] Referring MD: Tyree Weber MD Milk Processing Worker: Tyree Weber MD Symptoms: I71.2 - Thoracic aortic aneurysm, without rupture Study Quality: Fair/Contrast ECG Rhythm: Sinus Conclusions: - 1. Normal LV ejection fraction 55-60% with grade 1 diastolic dysfunction next 2. Mildly dilated left atrium 3. Phyw-pl-unrvmcol aortic regurgitation 4. Normal RV systolic pressure 5. Moderately dilated ascending aorta at 4.6 cm 6. No gross pericardial effusion Findings Procedure Information Contrast agent, definity, is being given per protocol without apparent complications. Left Ventricle Normal left ventricular size, thickness, and systolic function. The visually estimated ejection fraction is between 55-60%. Spectral Doppler is indicative of an impaired relaxation filling pattern. E/E prime ratio is <8, consistent with normal filling pressures. Right Ventricle Normal right ventricular cavity size and systolic function. Atria The left atrium is mildly dilated. There is no evidence of interatrial shunt. The right atrium is mildly dilated. Aortic Valve There is mild calcification of the aortic valve. There is no aortic valve stenosis. There is mild to moderate aortic valve regurgitation. Mitral Valve Normal mitral valve structure and function. There is mild mitral valve regurgitation. There is no mitral valve stenosis. Pulmonic Valve The pulmonic valve is likely normal. There is trace pulmonic valve regurgitation. Tricuspid Valve Normal tricuspid valve structure. There is mild to moderate tricuspid valve regurgitation. The right ventricular systolic pressure is normal. The right ventricular systolic pressure is 31 mmHg. Normal right atrial pressure. There is no evidence of pulmonary hypertension. Great Vessels The pulmonary artery was not well visualized. There is moderate dilatation of the ascending aorta measuring 4.60 cm. Venous The inferior vena cava is normal in size and collapses greater than 50% with inspiration. Pericardium/Pleural There is no evidence of pericardial effusion. Prior Study Comparison Changes noted compared to prior study dated: 04/01/2024. aortic regurgitation is worse, nrcw-[id number]-jnhubnwv severe already Measurements 2D Linear Measurements IVSd: 1.12 0.6-0.9/0.6-1.0 cm LVIDd: 4.99 3.9-5.3/4.2-5.9 cm LVIDd Index: 2.19 2.4-3.2/2.2-3.1 cm/m2 LVIDs: 3.32 2.0-3.6 cm LVPWd: 1.12 0.7-1.1 cm LA Diam: 3.90 2.7-3.8/3.0-4.0 cm LAIDs Index: 1.71 1.5-2.3 cm/m2 LV Mass: 263.83 67-162/88-224 g LV Mass Index: 115.71 43-95/49-115 g/m2 LVOT Diam: 2.40 3.0+(-)1.3 cm 2D Systolic Function EF 4C: 56.60 >55% EF 2C: 56.60 >55% EF BiP: 55.40 >55% Mitral Valve MV Pk E: 0.78 MV PK A: 0.99 MV Decel Time: 214.00 E/A: 0.80 E'Lateral: 12.50 E'Medial: 6.64 E/E' Med: 11.70 E/E' Lat: 6.20 PHT: 63.00 MVA PHT: 3.49 Decel [place]: 3.63 Aortic Valve AoV Pk Nicko: 1.59 AoV Mn Nicko: 1.06 AoV VTI: 0.32 AoV Pk Grad: 10.00 Aov Mn Grad: 5.00 LEESA Cont.VTI: 3.26 AI Pk Nicko: 5.02 AI VTI: 2.72 AI [place]: 2.79 AI Alias Nicko: 0.31 AI RV - PISA: 68.00 ERO - PISA: 25.00 LVOT LVOT Pk Nicko: 1.02 LVOT Mn Nicko: 0.70 LVOT VTI: 0.23 LVOT Pk Grad: 4.00 LVOT Mn Grad: 2.00 LVOT Diam: 2.40 LVOT Area: 4.52 Diastolic Function MV Pk E: 0.78 MV Pk A: 0.99 E/A: 0.80 E'Medial: 6.64 E/E' Med: 11.70 E' Laterial: 12.50 E/E' Lat: 6.20 Right Ventricle TAPSE (mm): 24.60 TVS' Nicko: 15.70 Tricuspid Valve TR Pk Nicko: 2.39 TR Pk Grad: 23.00 RA Press: 8.00 RVSP: 31.00 Great Vessels Aorta Sinus of Valsalva: 3.83 2.0-3.5 cm Ao Asc: 4.60 2.1-3.4 cm Ao Arch: 3.80 Updated in Other Vendor System with Status of Final Tyree Weber MD electronically signed on 06/22/2025 12:42:11 PM with status of Final
--- OUTSIDE RECORDS SUMMARY | 2025-06-20 16:27 | XMS_ITS | Encounter Summary ---
Author Organization [employer] Address [address] [facility] [address] [place] [address] Care Team Providers Care Equip Tech Name Role Phone Aaliyah Roche MD Primary Care Provide r Deb Duncan RN Unavailable [phone] Sylvia Brumfield Unavailable Reason for Visit * Reason Comments Med Change Request Encounter Details Date Type Department Care Team ([facility] st Contact Info) Description 03/05/2025 Refill [facility] [address] [place], [place] [phone] Aaliyah Roche MD [address] [place], [place] [phone] Neuropathy Social History Tobacco Use Types Packs/Day [...] Description 08/11/2025 9:15 AM EST Office Visit [facility] [address] [place] [phone] Aaliyah Roche MD [address] [place] [phone] documented as of this encounter Visit Diagnoses Diagnosis Neuropathy Mononeuritis of unspecified site documented in this encounter Additional Health Concerns Assessment Noted Time PHQ-9 Depression Total Score: 0 03/05/20 8:59 AM EDT documented as of this encounter Care Teams Equip Tech Relationship Specialty Start Date End Date Aaliyah Roche MD [address] [place] [phone] PCP - General Family Medicine 07/03/19 Deb Duncan, RN [address] [place] [address] Registered Nurse Family Medicine 03/31/25 Sylvia Brumfield 03/31/25 [facility] 05/23/25 documented as of this encounter
--- OUTSIDE RECORDS SUMMARY | 2025-06-20 16:27 | XMS_ITS | Encounter Summary ---
Author Organization [employer] Address [address] [facility] [address] [place] [address] Care Team Providers Care Police Academy Instructor Name Role Phone Aaliyah Roche MD Primary Care Provide r Deb Duncan RN Unavailable [phone] Sylvia Brumfield Unavailable Reason for Visit * Reason Comments Med Refill Encounter Details Date Type Department Care Team (Late st Contact Info) Description 10/21/2024 Refill [facility] [address] [place], [place] [phone] Aaliyah Roche MD [address] [place], [place] [phone] Dyslipidemia Social History Tobacco Use Types Packs/Day [...] Description 08/11/2025 9:15 AM EST Office Visit [facility] [address] [place] [address] Aaliyah Roche MD [address] [place] [address] documented as of this encounter Visit Diagnoses Diagnosis Dyslipidemia Other and unspecified hyperlipidemia documented in this encounter Additional Health Concerns Assessment Noted Time PHQ-9 Depression Total Score: 12 024 11:05 AM EDT documented as of this encounter Care Teams Police Academy Instructor Relationship Specialty Start Date End Date Aaliyah Roche MD [address] [place] [address] PCP - General Family Medicine 07/03/19 Deb Duncan RN [address] [place] [phone] Registered Nurse Family Medicine 03/31/25 Sylvia Brumfield 03/31/25 [facility] 05/23/25 documented as of this encounter
--- OUTSIDE RECORDS SUMMARY | 2025-06-20 16:27 | XMS_ITS | Encounter Summary ---
Author Organization [employer] Address [address] [facility] [place] [address] Care Team Providers Care Machine Molder Squeeze Name Role Phone Aaliyah Roche MD Primary Care Provide r Deb Duncan RN Unavailable [phone] Sylvia Brumfield Unavailable Encounter Details Date Type Department Care Team (Latest Contact Info) Description 06/18/2025 Travel Social History Tobacco Use Types Packs/Day [...] is your housing situation today? I have raoulrandall huber 11/13/[address] you [...] 08/11/2025 9:15 AM EST Office Visit [facility] MEDICINE [address] [place] [address] Aaliyah Roche MD [address] [place] [address] documented as of this encounter Visit Diagnoses Not on filedocumented in this encounter Additional Health Concerns Assessment Noted Time PHQ-9 Depression Total Score: 0 04/09/20 3:16 PM EDT documented as of this encounter Care Teams Machine Molder Squeeze Relationship Specialty Start Date End Date Aaliyah Roche MD [address] [place] [address] PCP - General Family Medicine 07/03/19 Deb Duncan RN [address] [place] [address] Registered Nurse Family Medicine 03/31/25 Sylvia Brumfield 03/31/25 Aicha CARSON 05/23/25 documented as of this encounter
--- OUTSIDE RECORDS SUMMARY | 2025-06-20 16:27 | XMS_ITS ---
Author Organization [employer] Address 75 [facility] 7t [place] [address] Care Team Providers Care Pathology Secretary Name Role Phone Aaliyah Roche MD Primary Care Provide r Deb Duncan RN Unavailable [phone] Sylvia Brumfield Unavailable [facility] Status:Enrolled (Active) Start date:03/31/2025 Enrollment date:04/09/2025 Enrollment reason:ADT Feed Overview ED- Pt went to [facility] on 03/29/25. Please outreach for enrollment. Case Team Name Relationship Phone Sylvia Brumfield(Responsible Staff) [phone] Continued Care and Services Coordination
--- OUTSIDE RECORDS SUMMARY | 2025-06-20 16:27 | XMS_ITS | Clinical Summary ---
Author Organization [facility] Address [address] [place] [address] Phone Care Team Providers Care Coin Machine Mechanic Name Role Phone Aaliyah Roche MD Primary Care Provider Tyree Weber MD Unavailable [phone] Allergies Active Allergy Reactions Criticality Noted Date [...] topic Medical Devices Not on file Insurance [facility] [employer] [facility] C3 [employer] [facility] C3 [employer]CO [facility] C3 [facility] [address] [place] [address] [place] [address] C3 ACO Care Teams Coin Machine Mechanic Relationship Specialty Start Date End Date Aaliyah Roche MD [address] [place] [address] PCP - General Internal Medicine 04/29/20 Tyree Weber MD [address] [place] [address] Superintendent House Cardiology 05/28/20 Additional Source Comments The information contained in this document represents components of the legal health record. It is not the complete legal health record.[facility]
--- OUTSIDE RECORDS SUMMARY | 2025-06-20 16:27 | XMS_ITS | Encounter Summary ---
Author Organization [employer] Address [address] [facility] [address] 7t [place] [address] Care Team Providers Care Set Up Operator Name Role Phone Aaliyah Roche MD Primary Care Provide r Deb Duncan RN Unavailable [phone] Sylvia Brumfield Unavailable Reason for Visit * Reason Comments Med Refill Encounter Details Date Type Department Care Team (Late st Contact Info) Description 04/14/2025 Refill [facility] [place] [facility] [address] [place], [place] [phone] Aaliyah Roche MD [address] [place], [place] [phone] Social History Tobacco Use Types Packs/Day Years [...] Description 08/11/2025 9:15 AM EST Office Visit [facility] [place] [facility] [address] [place] [address] Aaliyah Roche MD [address] [place] [address] documented as of this encounter Visit Diagnoses Not on filedocumented in this encounter Additional Health Concerns Assessment Noted Time PHQ-9 Depression Total Score: 0 04/09/20 3:16 PM EDT documented as of this encounter Care Teams Set Up Operator Relationship Specialty Start Date End Date Aaliyah Roche MD [address] [place] [address] PCP - General Family Medicine 07/03/19 Deb Duncan RN [address] [place] [address] Registered Nurse Family Medicine 03/31/25 Sylvia Brumfield 03/31/25 Aicha GALEANAA 05/23/25 documented as of this encounter
--- OUTSIDE RECORDS SUMMARY | 2025-06-20 16:27 | XMS_ITS | Encounter Summary ---
Author Organization [employer] Address [address] [facility] [address] 7t [place] [address] Care Team Providers Care Tipping Machine Operator Automatic Name Role Phone Aaliyah Roche MD Primary Care Provide r Deb Duncan RN Unavailable [phone] Sylvia Brumfield Unavailable Reason for Visit * Reason Onset Date Comments Med Change Request Durable Medical Equipment 04/15/2025 DME Or pako: Blood Pressure Monitor. Encounter Details Date Type Department Care Team (Late st Contact Info) Description 04/15/2025 Refill [facility] MEDICINE [address] [place] [address] Aaliyah Roche MD [address] [place], [place] [phone] Social History Tobacco Use Types Packs/Day Years [...] was generated and sent via FAX to [facility] Pharmacy. Confirmation was uploaded to Media. documented in this encounter Plan of Treatment Upcoming Encounters Date Type Department Care Team (Late st Contact Info) Description 08/11/2025 9:15 AM EST Office Visit [facility] MEDICINE [address] [place] [address] Aaliyah Roche MD [address] [place] [address] documented as of this encounter Visit Diagnoses Not on filedocumented in this encounter Additional Health Concerns Assessment Noted Time PHQ-9 Depression Total Score: 0 04/09/20 25 3:16 PM EDT documented as of this encounter Care Teams Tipping Machine Operator Automatic Relationship Specialty Start Date End Date Aaliyah Roche MD [address] [place] [address] PCP - General Family Medicine 07/03/19 Deb Duncan RN [address] [place] [address] Registered Nurse Family Medicine 03/31/25 Sylvia rBumfield 03/31/25 Aicha CARSON 05/23/25 documented as of this encounter
--- OUTSIDE RECORDS SUMMARY | 2025-06-20 16:27 | XMS_ITS | Encounter Summary ---
Author Organization [employer] Address [address] [facility] [address] 7[address] [place] [address] Care Team Providers Care Mail Superintendent Name Role Phone Aaliyah Roche MD Primary Care Provide r Deb Duncan RN Unavailable Sylvia Brumfield Unavailable Reason for Visit * Reason Comments Care Management C3CM- f/u call Encounter Details Date Type Department Care Team ([facility] st Contact Info) Description 06/20/2025 Patient Outreach [facility] MEDICINE [address] [place] [address] Aaliyah Roche MD [address] [place], [place] [phone] Care Management (C3CM- f/u call) Social History [...] Progress Notes * Deb Duncan RN - 06/20/2025 9:12 AM EDT CM Deb Duncan RN placed outbound call to patient. Patient's name, and address confirmed. Patient states he was hospitalized at [facility] from 06/09/25- 06/11/25. He was then seen for a hospital follow up visit on 06/18/25. Per patient, informed symptoms may be consistent with costochondritis. He states he picked up the oxycodone and diclofenac from his pharmacy and reports using Rx as prescribed. He reports mild relief but states he is still experiencing discomfort to his chest intermittently.Per patient, no CP or SOB at this time. He states he is scheduled to see his integrity analyst this afternoon for US and follow up. Patient aware of his scheduled f/u with [facility] on 06/24 as well and deniesany barriers to attending the visit. CM notified the patient that they have been enrolled in the Care Management Program for 60 days. CMupdated the patient on the progress that has been made toward goals in the past two months. CM questioned patient about what else they would like to work as the patient will be graduated from the program within the next month. No further questions or concerns. CM reinforced direct contact information for any additional questions or concerns. A follow up call will be placed within 10 days, patient agrees withplan. documented in this encounter Plan of Treatment Upcoming Encounters Date Type Department Care Team ([facility] st Contact Info) Description 08/11/2025 9:15 AM EST Office Visit [facility] MEDICINE [address] [place] [address] Aaliyah Roche MD [address] [place] [address] documented as of this encounter Visit Diagnoses Not on filedocumented in this encounter Additional Health Concerns Assessment Noted Time PHQ-9 Depression Total Score: 0 04/09/20 3:16 PM EDT documented as of this encounter Care Teams Mail Superintendent Relationship Specialty Start Date End Date Aaliyah Roche MD [address] [place] [address] PCP - General Family Medicine 07/03/19 Deb Duncan RN [address] [place] [address] Registered Nurse Family Medicine 03/31/25 Sylvia Brumfield 03/31/25 Aicha GALEANAA 05/23/25 documented as of this encounter
--- OUTSIDE RECORDS SUMMARY | 2025-06-20 16:27 | XMS_ITS | Encounter Summary ---
Author Organization [employer] Address 75 [facility] [address] 7t [place] [address] Care Team Providers Care Circular Saw Operator Name Role Phone Aaliyah Roche MD Primary Care Provide r Deb Duncan RN Unavailable [phone] Sylvia Brumfield Unavailable Encounter Details Date Type Department Care Team ([facility] Contact Info) Description 01/06/2023 Orders Only [facility] [address] [place], [place] [phone] Alyssa Mackey LPN Social History Tobacco Use [...] Upcoming Encounters Date Type Department Care Team ([facility] Contact Info) Description 08/11/2025 9:15 AM EST Office Visit [facility] MEDICINE [address] [place], [place] [phone] Aaliyah Roche MD [address] [place], [place] [phone] documented as of this encounter Visit Diagnoses Not on filedocumented in this encounter Care Teams Circular Saw Operator Relationship Specialty Start Date End Date Aaliyah Roche MD [address] [place] [address] PCP - General Family Medicine 07/03/19 Deb Duncan RN [address] [place] [address] Registered Nurse Family Medicine 03/31/25 Sylvia Brumfield 03/31/25 Aicha [facility] 05/23/25 documented as of this encounter
--- OUTSIDE RECORDS SUMMARY | 2025-06-20 16:27 | XMS_ITS | Encounter Summary ---
Author Organization [employer] Address [address] [facility] [address] 7[address] [place] [address] Care Team Providers Care Drivers' Cash Clerk Name Role Phone Aaliyah Roche MD Primary Care Provide r Deb Duncan RN Unavailable [phone] Sylvia Brumfield Unavailable Reason for Visit * Reason Comments Med Refill Encounter Details Date Type Department Care Team (Late st Contact Info) Description 12/21/2024 Refill [facility] MEDICINE 230 [place], [place] [phone] Aaliyah Roche MD [address] [place], [place] [phone] Essential hypertension Social History Tobacco Use Types [...] Description 08/11/2025 9:15 AM EST Office Visit [facility] MEDICINE [address] [place] [address] Aaliyah Roche MD [address] [place] [address] documented as of this encounter Visit Diagnoses Diagnosis Essential hypertension Unspecified essential hypertension documented in this encounter Additional Health Concerns Assessment Noted Time PHQ-9 Depression Total Score: 12 024 11:05 AM EDT documented as of this encounter Care Teams Drivers' Cash Clerk Relationship Specialty Start Date End Date Aaliyah Roche MD [address] [place] [address] PCP - General Family Medicine 07/03/19 Deb Duncan RN [address] [place] [address] Registered Nurse Family Medicine 03/31/25 Sylvia Brumfield 03/31/25 Aicha GALEANAA 05/23/25 documented as of this encounter
--- OUTSIDE RECORDS SUMMARY | 2025-06-20 16:27 | XMS_ITS | Clinical Summary ---
Author Organization 175 [facility] Address [address] [place] [address] Phone Care Team Providers Care Talent Specialist Name Role Phone Aaliyah Roche MD Primary Care Provide r Allergies Active Allergy Reactions Criticality Noted Date Comments Baclofen Rash 01/12/2009 Medications AMLODIPINE-ATOR VASTATIN ORAL Take by mouth. A ctive CARVEDILOL ORAL Take by mouth. Active LISINOPRIL ORAL Take by mouth. Active trazodone HCl (TRAZODONE ORAL) Take by mouth. Activ e predniSONE (DELTASONE) 10 mg tablet Take 1 tablet (10 mg total) by mouth 1 (one) time each day. Active tirzepatide, weight loss, (Zepbound) 10 mg/0.5 mL injection Inject 0.5 mL (10 mg total) under the skin every 7 (seven) days. 2 mL 5 07/09/20 25 Active amLODIPine (NORVASC) 10 mg tablet Take 1 tablet (10 mg total) by mouth 1 (one) time each day in the morning. 5 Active alfuzosin (UROXATRAL) 10 mg 24 hr tablet TAKE 1 TABLET BY MOUTH EVERY DAY ADMINISTER AFTER THE SAME MEAL EACH DAY Active Ventolin HFA 90 mcg/actuation inhaler TAKE 2 PUFFS BY MOUTH EVERY 6 HOURS FOR 30 DAYS USE WITH CHAMBER Active azelastine (ASTELIN) 137 mcg (0.1 %) nasal spray SPRAY 2 SPRAYS INTO EACH NOSTRIL TWICE A DAY FOR 30 DAYS 4 Active diclofenac sodium 3 % gel Apply 1 Application topically 2 (two) times a day. APPLY TO AFFECTED AREA Active budesonide-form oteroL (SYMBICORT) 160-4.5 mcg/actuation inhaler PLEASE SEE ATTACHED FOR DETAILED DIRECTIONS 3 Active ibuprofen (ADVIL,MOTRIN) 800 mg tablet take 1 tablet (800 mg) by mouth every 8 hours as needed for pain 5 Active ipratropium (ATROVENT) 21 mcg (0.03 %) nasal spray Administer 2 sprays into each nostril 3 times daily. 4 Active lidocaine (LIDODERM) 5 % patch APPLY 1 PATCH TOPICALLY DAILY, REMOVE PATCHES AFTER 12 HOURS 5 Active meloxicam (MOBIC) 15 mg tablet Take 1 tablet (15 mg total) by mouth 1 (one) time each day if needed. 5 Active metFORMIN XR (GLUCOPHAGE-XR) 500 mg 24 hr tablet Take 1 tablet (500 mg total) by mouth 1 (one) time each day with dinner. 4 Active naloxone (NARCAN) 4 mg/0.1 mL nasal spray PLEASE SEE ATTACHED FOR DETAILED DIRECTIONS Active oxyCODONE (ROXICODONE) 5 mg immediate release tablet TAKE 1 TABLET BY MOUTH EVERY 6 HOURS NEEDED FOR SEVERE PAIN FOR 5 DAYS 5 Active permethrin (ELIMITE) 5 % cream APPLY TO SKIN FROM HAIRLINE TO TOES AND WASH OFF 8-10 HOURS LATER. 5 Active pravastatin (PRAVACHOL) 20 mg tablet TAKE 1 TABLET (20 MG) BY MOUTH ONCE PER DAY. 5 Active sucralfate (CARAFATE) 100 mg/mL suspension PLEASE SEE ATTACHED FOR DETAILED DIRECTIONS Active tadalafiL (CIALIS) 5 mg tablet Take 1 tablet (5 mg total) by mouth 1 (one) time each day. Active traMADoL (ULTRAM) 50 mg tablet TAKE 1 TABLET BY MOUTH TWICE A DAY NEEDED FOR PAIN FOR 15 DAYS Active Active Problems Problem Noted Date Diagnosed Date Class 3 severe obesity with body mass index (BMI) of 40.0 to 44.9 in adult ([facility] V24, [facility] V28) 06/11/2024 Obstructive sleep apnea [...] (BMI) of 36.0 to 36.9 in adult 01/29/2016 Abnormality of thoracic aorta [...] Encounters Date Type Department Care Team Description 06/09/2025 10:30 AM EDT Nutrition Bariatric Surgery [address] [phone] Katty Stewart, VALERY Class 2 severe obesity with serious comorbidity and body mass index (BMI) of 38.0 to 38.9 in adult, unspecified obesity type (Primary Dx) 06/06/2025 Telephone Bariatric Surgery [address] [address] Francesca Bermudez PA 04/16/2025 Telephone Bariatric Surgery [address] [phone] Francesca Bermudez PA from Last 3 Months Immunizations Immunization Administration Dates Next Due Influenza trivalent, 0.5mL, [...] PROCEDURE: HISTORICAL BLADDER SURGERY ESOPHAGOGASTRODUODENOSCOPY 09/24/15 PROCEDURE: HI ESOPHAGOGASTRODUODENOSCOPY TRANSORAL DIAGNOSTIC; COMMENT: Duodenitis, otherwise normal [...] Comments Brother 1 Brother 2 Alive HTN, [place] at 55 y o Brother 3 mi [...] - Inhaled Oxygen Concentration - - Weight 112 kg (248 lb) 06/09/2025 10:34 AM EDT Height 177.8 cm (5' 10 ) 03/13/2025 2:08 PM EDT Body Mass Index 35.58 03/13/2025 2:08 PM EDT Plan of Treatment Upcoming Encounters Date Type Department Care Team (Late st Contact Info) Description 07/16/2025 10:30 AM EST Office Visit Orthopedic Surgery [facility] [address] [phone] Venkata Mejia, DPM [address] [phone] 10/10/2025 8:30 AM EST Nutrition Bariatric Surgery [facility] [address] [phone] Katty Stewart, RD [address] [phone] Health Maintenance Due Date Last Done Comments Diabetes: Annual Foot Exam 1975 Diabetes: Annual Retina Eye Exam 1975 Hepatitis A Vaccines (1 of 2 - Risk 2-dose series) 1984 RSV Immunization Adult Patients (1 - Risk 50-74 years 1-dose series) 2015 Zoster Vaccines (1 of 2) 2015 Social [...] (03/24/2016) Annual BMP Blood Test abstracted Result [facility] Provider HEALTH MAINTENANCE Final Result * (ABNORMAL) Lipid panel (03/24/2016) Pathologist [facility] LDL/HDL Ratio 5(A) 0 - 4 Triglycerides 257(A) 0 - 150 mg/dL Cholesterol 187 0 - 200 mg/dL HDL 38(A) >=40 mg/dL LDL Cholesterol 98 0 - 100 mg/dL Blood Venous blood specimen / Unknown Result [facility] Provider LAB BLOOD ORDERABLES Delisa l Result * Hemoglobin A1c (12/30/2015) Pathologist [facility] Hemoglobin A1C 5.6 4.0 - 6.0 % Blood Venous blood specimen / Unknown Result [facility] Provider LAB BLOOD ORDERABLES Delisa l Result * HIV Screening (05/25/2013) Pathologist [facility] HIV Screening abstracted Result [facility] Provider HEALTH MAINTENANCE Final Result * Hepatitis C Screening (05/25/2013) Pathologist [facility] Hepatitis C Screening abstracted [facility] Provider HEALTH MAINTENANCE Final Result from Last 3 Months or Most Recently Relevant to Health Maintenance Insurance [place]ICA[place] - [place] Care Teams Talent Specialist Relationship Specialty Start Date End Date Aaliyah Roche MD [address] [place] [phone] PCP - General Internal Medicine 08/24/21
--- OUTSIDE RECORDS SUMMARY | 2025-06-20 16:27 | XMS_ITS | Clinical Summary ---
Author Organization [employer] Address [address] [facility] [address] [place] [address] Care Team Providers Care Dye Reel Operator Name Role Phone Aaliyah Roche MD Primary Care Provide r Deb Duncan RN Unavailable [phone] Sylvia Brumfield Unavailable Allergies Active Allergy [...] Additional Information Patient not taking.Reported on 04/09/2025 Ventolin HFA 108 (90 Base) MCG/ACT inhaler Inhale 2 puffs every 6 (six) hours. Active Azelastine HCl 137 MCG/SPRAY solution SPRAY 2 SPRAYS INTO EACH NOSTRIL TWICE A DAY FOR 30 DAYS 024 Active pravastatin (Pravachol) 20 MG tabletIndicatio ns:Essential hypertension Take 1 tablet (20 mg) by mouth Once per day. 30 tablet 11 025 2025 Active albuterol (2.5 MG/3ML) 0.083% nebulizer solution Take 3 mL (2.5 mg) by nebulization every 6 (six) hours if needed for wheezing or shortness of breath. 75 mL 1 025 2025 Active Nebulizer misc 1 Units Every 4-6 hours as needed (Q6 hr PRN per albuterol order). Pt provided Acc[employer] Nebulizer machine. Education provided. Pt verbalized understanding. Active lisinopril 20 MG tabletIndicatio ns:Essential hypertension TAKE 1 TABLET BY MOUTH EVERY DAY IN THE MORNING 90 tablet 1 025 Active permethrin (Elimite) 5 % creamIndication s:Scabies apply to skin from hairline to toes and wash off 8-10 hours later 60 g 1 Active Additional Information Patient not taking.Reported on 04/09/2025 Alpha-Lipoic Acid 600 MG capsuleIndicati ons:Neuropathy Take 1 capsule (600 mg) by mouth Once per day. 90 capsule Active Additional Information Patient not taking.Reported on 06/18/2025 clotrimazole (Lotrimin) 1 % cream Apply topically 2 times daily. 60 g 1 025 Active Blood Pressure kitIndications: Primary hypertension Please use to check BP as directed 1 kit 025 Active amLODIPine (Norvasc) 10 MG tablet TAKE 1 TABLET BY MOUTH EVERY DAY IN THE MORNING 90 tablet 1 025 Active carvedilol (Coreg) 25 MG tablet TAKE 2 TABLETS BY MOUTH TWICE A DAY WITH FOOD 360 tablet 1 025 Active acetaminophen (Tylenol 8 Hour) 650 MG ER tablet Take 2 tablets by mouth every 8 (eight) hours if needed for mild pain. Active aspirin 81 MG EC tablet Take 1 tablet by mouth Once per day. 022 Active lansoprazole (Prevacid) [address] capsule Take 1 capsule by mouth 2 times daily. 024 Active lidocaine (Lidoderm) 5 % patch Apply 1 patch topically Once per day. 025 2024 Active tadalafil (Cialis) 5 MG tablet Take 1 tablet by mouth Once per day. 023 Active tamsulosin (Flomax) 0.4 MG 24 hr capsule Take 1 capsule by mouth Once per day. Active Zepbound 10 MG/0.5ML solution auto-injector Inject 0.5 mL under the skin every 7 (seven) days. Active sucralfate (Carafate) 1 g tablet Take 1 g by mouth in the morning and 1 g at noon and 1 g in the evening. 2024 Active Diclofenac Sodium 1 % gelIndications: Costochondritis Apply 1 Application topically if needed each day (back pain ,costochondriti s). 50 g Active oxyCODONE (Roxicodone) 5 MG immediate release tabletIndicatio ns:Costochondri tis Take 1 tablet (5 mg) by mouth every 12 (twelve) hours if needed for severe pain for up to 5 days. 10 tablet 2024 Active prazosin (Minipress) 1 MG capsule TAKE 1 CAPSULE BY MOUTH EVERYDAY AT BEDTIME 90 capsule 1 2024 Discontinued(M ed list cleanup (will not trigger notification to Pharmacy)) Diclofenac Sodium 1 % gelIndications: Arthralgia, unspecified joint APPLY 2 GRAMS TO THE AFFECTED AREA 3 TIMES A DAY NEEDED 100 g 2 2024 Discontinued(M ed list cleanup (will not trigger notification to Pharmacy)) carvedilol (Coreg) 25 MG tablet TAKE 2 TABLETS BY MOUTH TWICE A DAY WITH FOOD 360 tablet 1 2024 Discontinued fluticasone (Flonase) 50 MCG/ACT nasal spray Administer 1 spray into each nostril Once per day. 2024 Discontinued(M ed list cleanup (will not trigger notification to Pharmacy)) ipratropium (Atrovent) 0.03 % nasal spray Administer 2 sprays into each nostril in the morning and 2 sprays at noon and 2 sprays in the evening. 2024 Discontinued(M ed list cleanup (will not trigger notification to Pharmacy)) predniSONE (Deltasone) 10 MG tabletIndicatio ns:Allergic dermatitis due to poison kiya Take by oral route daily. 6 tabs (=60mg) on day 1-2; 5 tabs (=50mg) on day 3-4; 4 tabs (=40mg) on day 5-6; 3 tabs (=30mg) on day 7-8; 2 tabs (=20mg) on day 9-10; 1 tab on day 11-12; 1/2 tab on day 13-14 43 tablet 025 2024 Discontinued(M ed list cleanup (will not trigger notification to Pharmacy)) Hospital, Clinic, or Other Facility Administered Medication Ordered Dose Route Frequency Start Date End Date Status nitroglycerin (Nitrostat) SL tablet 0.4 mgIndications:Other chest pain 0.4 mg SL Once 06/09/2025 06/09/2025 Ended aspirin chewable tablet 325 mgIndications:Other chest pain 325 mg PO Once 06/09/2025 06/09/2025 Ended Active Problems Problem Noted Date Diagnosed Date Scabies 03/05/2025 Neuropathy 03/05/2025 History of melanoma 11/13/2024 Chronic right-sided thoracic back pain Epigastric pain 07/31/2024 Exertional chest pain 07/31/2024 Assessment & Plan (06/09/2025 12:25 PM EDT): Significantly improved with sublingual nitro, given patient's cardiovascular risk factors I will send him to ED via ambulance. Rx Chewable aspirin 325 MG + SL nitro 0.4 mg stat Case discussed with patient and and they both agreed with POC, he will follow-up with PCP and cardiology upon discharge Assessment & Plan (08/02/2024 4:18 PM EST): Resolved now H/O malignant neoplasm of skin 06/05/2024 Uncomplicated opioid dependence (CMS/HCC) 2023 Right inguinal pain 10/23/2023 Right testicular pain [...] foot 05/30/2023 Lipoma 05/30/2023 Chest discomfort 05/08/2023 Assessment & Plan (06/18/2025 11:29 PM EDT): -CT Angio Chest, CT Angio Abdomen 06/10/25 No evidence of intramural hematoma. Unchanged ascending aortic aneurysm measuring up to 4.6 cm. Patient is status post endovascular stent placement for type B aortic dissection. The stent extends from the aortic arch just distal to the left subclavian artery origin through the edge of the [id number] at the bilateral common iliac arteries. Unchanged hyperdense foci in the excluded aneurysm sac, with several examples annotated on series 605. The areas of enhancement in the excluded sac are also [...] pericardial effusion. Severe LAD artery calcifications with mild calcification in the remainder of the coronary arteries.Chest [...] follow up on 06/20/25 -I called his carbon capture power plant manager Dr Jeronimo today to confirm date but was not able to reach staff -left voice mail . 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 Check fgstk daily, glucometer sent to [facility] pharmacy Encouraged physical activity as tolerated. [...] of lumbar spine 1 Radiculitis, lumbosacral 10/20/2010 Atypical chest pain 05/02/2008 Overview (05/08/2023): Neg cardiac w/u and cta HH 04/2015 [facility] / nuclear stress done Resolved Problems Problem Noted Date Diagnosed Date Resolved Date Tobacco use disorder 01/05/2009 025 Encounters Date Type Department Care Team Description 06/20/2025 Patient Outreach [facility] [address] [place] [phone] Aaliyah Roche MD Care Management (C3CM- f/u call) 06/18/2025 10:15 AM EDT Office Visit [address] [address] Aaliyah Orozco MD Costochondritis (Primary Dx); Type 2 diabetes mellitus with hyperglycemia, without long-term current use of insulin (HCC); Chest discomfort 06/18/2025 Travel 06/17/2025 Telephone [facility] [address] [place] [phone] Aaliyah Orozco MD chart prep 06/10/2025 Patient Outreach [facility] [address] [place] [phone] Aaliyah Roche MD Care Management (C3CM- f/u call) 06/09/2025 11:20 AM EDT Office Visit [facility] [address] [place] [address] Bhavana Lee MD Exertional chest pain (Primary Dx); Other chest pain 06/09/[address] [address] Maida Bean, RN Nurse Triage 06/09/2025 Travel 06/06/[address] [address] Aaliyah Roche MD 06/03/2025 Patient Outreach [address] [address] Aaliyah Roche MD Pre-visit Planning (SDOH screening completed on 04/09/2025) 05/30/[address] [address] Aaliyah Roche MD Nurse Triage 05/30/2025 Patient Outreach [address] [address] Aaliyah Roche MD Care Coordination (SDOH f/u) 05/29/2025 Patient Outreach [address] [address] Aaliyah Roche MD Care Management (C3- f/u call #2 lvm) 05/27/2025 Patient Outreach [address] [address] Aaliyah Roche MD 05/23/2025 Patient Outreach [address] [address] Aaliyah Roche MD Transition Of Care (Tcm) (HDF uscheduled) 05/22/[address] [address] Aaliyah Roche MD FYI 05/16/2025 Patient Outreach [address] [address] Aaliyah Roche MD Care Management (C3- f/u call) 05/09/2025 Refill [facility] [address] [place] [address] Aaliyah Roche MD 05/07/2025 Patient Outreach [facility] [address] [place] [address] Aaliyah Roche MD Care Coordination (PROH f/u) 05/07/2025 Patient Outreach [facility] [address] [place] [address] Aaliyah Roche MD Care Management (C3- f/u call) 04/23/2025 Patient Outreach [facility] [address] [place] [address] Aaliyah Roche MD Care Coordination ([facility] f/u) 04/23/2025 Patient Outreach [facility] [address] [place] [address] Aaliyah Roche MD Care Management (C3- f/u call) 04/21/2025 9:00 AM EDT Office Visit [facility] [address] [place] [address] Yung Dao MD Rash (Primary Dx) 04/21/2025 Refill [facility] [address] [place] [address] Jodi Chen RN Primary hypertension 04/21/2025 Travel 04/15/2025 Refill [facility] [address] [place] [address] Aaliyah Roche MD 04/14/2025 Refill [facility] [address] [place] [address] Aaliyah Roche MD 04/10/2025 Refill [facility] [address] [place] [address] Aaliyah Roche MD 04/10/2025 Plan of Care Documentation [facility] [address] [place] [address] 04/09/2025 Patient Outreach [facility] [address] [place] [address] Aaliyah Roche MD Care Management (C3- initial assessment/ enrollment) 04/09/[address] [address] Aaliyah Roche MD 04/09/2025 Patient Outreach [address] [address] Aaliyah Roche MD Care Coordination ([facility]) 04/08/2025 Patient Outreach [address] [address] Aaliyah Roche MD Care Coordination (CM/CHW outreach) 03/31/2025 Patient Outreach [address] [address] Aaliyah Roche MD Care Coordination (CM/CHW outreach) 03/31/2025 Patient Outreach [address] [address] Aaliyah Roche MD Care Coordination (W chart review) 03/31/2025 Patient Outreach [address] [address] Aaliyah Roche MD Care Management ([facility]- chart review) 03/31/2025 Patient Outreach [address] [address] Aaliyah Roche MD 03/25/[address] [address] Aaliyah Roche MD Durable Medical Equipment (DME Request: Shower Chair Replacement) from Last 3 Months Immunizations Immunization Administration [...] Mass Index 35.38 06/18/2025 10:47 AM EDT Plan of Treatment Upcoming Encounters Date Type Department Care Team (Late st Contact Info) Description 08/11/2025 9:15 AM EST Office Visit [facility] [address], [place] [phone] Aaliyah Roche MD [address], [place] [phone] Health Maintenance Due Date Last Done Comments [...] 2025 , 05/30/2023, 09/07/2022, Additional history exists Alcohol/Substance Use Screening 07/31/2025 07/31/2024 Lipid Panel 09/13/2025 09/13/2024, 04/28, 03/10/2022, Additional history exists Diabetes: Hemoglobin A1C 12/17/2025 025, 11/13/2024, 06/05/2024, Additional history exists Eye Exam 12/19/2025 12/20/2023, 11/27, 12/20/2023, Additional history exists Diabetes: Urine Protein Screening 03/05/2026 03/05/2025, 04/23/2024, 02/01/2024, Additional history exists Disability Screening 03/05/2026 03/05/2025 Depression Screening 04/09/2026 04/09/2025, 04/09/20 25 SDOH Screening 04/09/2026 04/09/2025 Colorectal Cancer Screening 06/08/2026 FIT DNA/Cologuard 06/08/2026 06/08/2023 Tobacco Screening 06/18/2026 06/18/2025 Pneumococcal Vaccine: 50+ Years Completed 01/23/2024, 09/20/2019, [...] without long-term current use of insulin (HCC) ECG 12-LEAD Routine 06/09/2025 12:14 PM EDT Exertional chest pain XR SHOULDER 2+ VIEWS LEFT Routine 03/29/2025 4:37 PM EDT CREATININE, RANDOM URINE Routine 03/05/2025 10:18 AM EDT LIPID PANEL, STANDARD Routine 09/13/2024 10:16 AM EST Class 3 severe obesity due to excess calories with serious comorbidity and body mass index (BMI) of 40.0 to 44.9 in adult ([facility]) LAB COLOGUARD COLON CANCER SCREEN Routine 06/08/2023 8:20 AM EDT Colon cancer screening from Last 3 Months or Most Recently Relevant to Health Maintenance Results * (ABNORMAL) POCT Hgb A1c (06/18/2025 11:01 AM EDT) Pathologist [facility] Hemoglobin A1C 5.8(A) 4.0 - 5.7 % QC Media Lot # [id number] Lot# Expiration Date [id number] Blood 06/18/2025 11:0 1 AM EDT Aaliyah Daniel MD POINT OF CARE AYESHA T ENTER/EDIT ORDERABLES Final Result * POCT Glucose (06/18/2025 10:48 AM EDT) Pathologist [facility] Glucose Blood, POC 103 60 - 200 mg/dL QC Media Lot # [id number] Lot# Expiration Date [id number] Blood Capillary blood specimen / Unknown 06/18/2025 10:48 AM EDT Aaliyah Daniel MD POINT OF CARE AYESHA T ENTER/EDIT ORDERABLES Final Result * ECG 12 lead (06/09/2025 12:14 PM EDT) Narrative Bhavana Lee MD - 06/09/2025 12:14 PM EDT NSR@60bpm, normal axis. RBBB pattern with unspecific repolarization abn on ant leads us Bhavana Lee MD ECG ORDERABLES Final Re sult * XR Shoulder 2+ Views Left (03/29/2025 4:37 PM EDT) Anatomical Region Laterality Modality Upper Extremities, Shoulder Left Radi ographic Imaging 03/29/2025 4:37 PM EDT Narrative 03/29/2025 4:38 PM EDT [address] [address] XRay Report Signed Patient: Silvestre Villalobos MR#: [id number] 73 : 1965 Acct:[id number] Age/Sex: 59 / M ADM Date: 03/29/25 Loc: HO.ED Attending Dr: Ordering Physician: Jessica Palmer CNP Date of Service: 03/29/25 Procedure(s): XR shoulder LT min 2V Accession Number(s): [id number] cc: Aaliyah Roche MD; Jessica Palmer CNP [...] 03/29/25 1638 DD/ 1637 TD/TT: 03/29/25 1637 Pipe Bending Machine Operator: Procedure Note Donotuseinterpreter, Image - 03/29/2025 [facility] [address] [place] [phone] XRay Report Signed Patient: Silvestre Villalobos [facility]#: [id number] 73 : 1965Acct:[id number] Age/Sex: 59 / MADM Date: 03/29/25 Loc: HO.ED Attending Dr: Ordering Physician: Jessica Palmer CNP Date of Service: 03/29/25 Procedure(s): XR shoulder LT min 2V Accession Number(s): [id number] cc: Aaliyah Roche MD; Jessica Palmer CNP [...] 03/29/25 1638 DD/ 1637 TD/TT: 03/29/25 1637 Pipe Bending Machine Operator: us [facility] External Provider IMG XR PROCEDURES Edited Result - Final * Creatinine, Random Urine (03/05/2025 10:18 AM EDT) Creatinine, Urine 296.31 mg/dL LABS 03/05/2025 10:1 8 AM EDT 03/05/2025 12:04 PM EDT Generic External Data Provider LAB URINE ORDERAB LES Final Result LABS [address] [place] [address] [phone] * (ABNORMAL) Lipid Panel, Standard (09/13/2024 10:16 AM EST) Triglycerides 209(H) <150 mg/dL [facility] Comment:Desirable Triglyceri de: less than 150 mg/dLBorderline High Triglyceride 150-199 mg/dLHigh Triglyceride: 200-499 mg/dLVery High Triglyceride: greater than or equal to 5OO mg/dL Cholesterol 212(H) <200 mg/dL LAB[facility] Comment:Desirable Cholestero l: less than 200 mg/dLBorderline High Cholesterol: 200-239 mg/dLHigh Cholesterol: greater than 239 mg/dL LDL Cholesterol Calculated 140(H) <100 mg/dL LAB[facility] Comment:Desirable LDL: less than 100 mg/dLNear Optimal/Above Optimal LDL: 110- 129 mg/dLBorderline High LDL: 130-159 mg/dLHigh LDL: 160-189 mg/dLVery High LDL: greater than or equal to 190 mg/dL HDL Cholesterol 31(L) >40 mg/dL [facility] Comment:Desirable HDL: great er than 40 mg/dL Note: This HDL assay may give artificially low results in patients with liver disease. Blood Venous blood specimen / Unknown 09/13/2024 10:16 AM EST 09/13/2024 11:30 AM EST Aaliyah Hernandez MD LAB BLOOD ORDERABLES Final Result [facility] [address] [place] [address] [phone] * Cologuard?? colon cancer screening (06/08/2023 8:20 AM EDT) Cologuard Result Negative Negative 06/15/20 4:38 AM EDT [employer] (CLIA #:[id number]) Comment: NEGATIVE TEST RESULT. A negative Cologuard [...] Matt et al, N Engl J Med 2014;370(14):9799-3122) The normal value (reference range) for this assay is negative. COLOGUARD RE-SCREENING RECOMMENDATION: Periodic colorectal cancer screening is an important part of preventive healthcare for asymptomatic individuals at average risk for colorectal cancer. Following a negative Cologuard result, the [place] [employer] and U.S. Multi-Society Task Force screening guidelines recommend a Cologuard re-screening interval of 3 years. References: [place] [employer] Guideline for Colorectal Cancer Screening: https://www.cancer.org/cancer/vjesm-oksbsa-bbijmw/eheedgmdm-uvjpbfmmj-dmwkcre/ac s-rec ommendations.html.; Ming DK, Branden CR, Doc MoraK, Colorectal Cancer Screening: Recommendations for Physicians and Patients from the U.S. Multi-Society Task Force on Colorectal Cancer Screening , Am J Gastroenterology 2017; 112:6311-5126. TEST DESCRIPTION: Composite algorithmic analysis of stool [...] (Terrance Ellison al, N Engl J Med 2014;370(14):9261-6032.) Cologuard may produce a false negative or false positive result (no colorectal cancer or precancerous polyp present at colonoscopy follow up). A negative Cologuard test result does not guarantee the absence of CRC or advanced adenoma (pre-cancer). The current Cologuard screening interval is every 3 years. ([place] [employer] and U.S. Multi-Society Task Force). Cologuard performance data in a 10,000 patient pivotal study using colonoscopy as the reference method can be accessed at the following location: www.[employer]/results. Additional description of the Cologuard test process, warnings and precautions can be found at www.[employer].com. Stool specimen (specimen) 06/08/2023 8:20 AM EDT 06/09/2023 3:33 PM EDT Aaliyah Hernandez MD LAB MOLECULAR DIAGNOS TICS ORDERABLES Final Result [employer] (CLIA #:[id number]) [address] [place] [address], from Last 3 Months or Most Recently Relevant to Health Maintenance Insurance AfterYes C3 Care Teams Dye Reel Operator Relationship Specialty Start Date End Date Aaliyah Roche MD [address] [place] [address] PCP - General Family Medicine 07/03/19 Deb Duncan RN [address] [place] [phone] Registered Nurse Family Medicine 03/31/25 Sylvia Brumfield 03/31/25 Aicha A 05/23/25
--- OUTSIDE RECORDS SUMMARY | 2025-06-20 16:27 | XMS_ITS | Continuity of Care Document ---
Author Organization [place] - [facility], BORIS Coates 2nd floor Address [address] [place] [address] Care Team Providers Care Division Superintendent Name Role Phone HOMER SOUZA Primary Care Provider Assessment Encounter Date Assessment Date Assessment LastModified by Organization Details LastModified Time 06/16/2025 06/16/2025 I am seeing the patient today under the supervision of Dr. Mojica who was available but who did not see the patient. HPI: Patient is here today for reevaluation of right hip pain. Has been evaluated by my colleague and diagnosed with osteoarthritis of the hip. Here today for intra-articular local only hip injection. No new injury or symptom changes. Review of systems: As noted patient intake. Physical exam:The patient is well appearing and in no apparent distress. Alert and oriented x3. Gait is antalgic on the right. Examination of the hip reveals no effusion, erythema, or warmth. No point tenderness over the greater trochanter. Calf soft and nontender. 5/5 strength with hip flexion/extension. Assessment: Osteoarthritis of the right hip Plan: I explained the nature of the diagnosis with the patient and its treatment options both conservative and surgical. Conservative measures were discussed at length including oral antiinflammatories, physical therapy, bracing and injection therapies. Please see the procedure note for further documentation about the injection performed today. Follow-up as scheduled for re-evaluation, sooner if any difficulty. The patient understands and agrees with the plan. They know to call if they have any further questions or concerns regarding their symptoms, or to follow up sooner if needed. [email or web address] Not available 06/16/2025 07:39:41 Plan of Treatment Reminders Order Date Submit Date Provider Last Modified By Organization Details Last Modified Time Details Appointments RECHECK 15 2024 01:30P M Heron Goss MD Not available Not available Not available Lab None recorded . Referral None recorded . Procedures None recorded . Surgeries None recorded . Imaging None recorded . Medication Orders None recorded . Patient TargetsNo targets recorded. Patient InstructionsNo instructions recorded. Reason for Referral None Reported. Problems Name Problem SNOMED Code Status Onset Date Resolution Date Notes Provider Name and Address Organization Details Recorded Time Pain of left shoulder region Active 2024 Heron Cruz PA-C [address], [facility] [place], [address], [facility] 5 12:44:49 Traumatic left rotator cuff tear Active 2024 Heron Cruz PA-C [address], [place], [address], [facility] 5 06:03:52 Derangement of left shoulder joint [id number] Active 2024 Heron Cruz PA-C [address], [place], [address], [facility] 5 13:04:02 Metal foreign body in back [id number] Active 2024 SAI LACKEY [facility] 5 09:30:25 Problem Notes None recorded. Procedures Surgical History Date Name Laterality Status Provider Name and Address Organization Details Recorded Time 5 JZHip completed Zacarias Bermudez PA-C [address] [facility], [place], [address], [facility] 06/16/2025 07:39:04 5 Sports Shoulder 4&1 completed Heron Cruz PA-C [address], [place], [address], [facility] 04/30/2025 11:10:06 5 Knee Kenalog 1cc L/R completed Heron Goss MD [address], [place], [address], [facility] 10/20/2024 13:30:30 Imaging Results None recorded. Procedure Notes None recorded. Medical Equipment None Reported. Allergies Allergen ID Allergen Name Allergen Category Reaction Reaction Severity Criticality Documentation Date Start Date Code Code System Note Provider Name and Address Organization Details Recorded Time [id number] baclofen medicatio n Not available Not available Not available 10/16/2024 1292 RxNorm TAYLOR TRIPLETT [facility] 13:57:16 Medications Name Sig Start Date Stop Date Status Note LastModified by Organization Details LastModified Time atorvastati n 40 mg tablet TAKE 1 TABLET BY MOUTH EVERY DAY 10/16 completed Not Available Not Available Not Available diclofenac 3 % topical gel APPLY TO AFFECTED AREA TWICE A DAY 06/16 completed Not Available Not Available Not Available carvedilol 25 mg tablet TAKE 2 TABLETS BY MOUTH TWICE A DAY WITH FOOD active Not Available Not Available No t Available prednisone 10 mg tablet PLEASE SEE ATTACHED FOR DETAILED DIRECTION S 06/16 completed Not Available Not Available Not Available doxycycline hyclate 100 mg capsule PLEASE SEE ATTACHED FOR DETAILED DIRECTION S 03/28 completed Not Available Not Available Not Available lidocaine 4 % topical patch APPLY 1 PATCH TOPICALLY DAILY X7 DAYS, DO NOT LEAVE PATCH ON FOR MORE THAN 12 HOURS AT A TIME 10/16 completed Not Available Not Available Not Available albuterol sulfate 2.5 mg/3 mL (0.083 %) solution for nebulizatio n INHALE 3 ML(2.5 MG) BY NEBULIZER EVERY 6 HOURS NEEDED FOR SHORTNESS OF BREATH OR WHEEZING active Not Available Not Available No t Available ibuprofen 800 mg tablet TAKE 1 TABLET (800 MG) BY MOUTH EVERY 8 HOURS NEEDED FOR PAIN 06/16 completed Not Available Not Available Not Available prazosin 1 mg capsule TAKE 1 CAPSULE BY MOUTH EVERYDAY AT BEDTIME 10/16 completed Not Available Not Available Not Available sucralfate 100 mg/mL oral suspension PLEASE SEE ATTACHED FOR DETAILED DIRECTION S active Not Available Not Available No t Available meloxicam 15 mg tablet TAKE 1 TABLET BY MOUTH EVERY DAY NEEDED 06/16 completed Not Available Not Available Not Available sucralfate 1 gram tablet TAKE 1 TABLET BY MOUTH 3 TIMES A DAY BEFORE MEALS AND BEDTIME,X 14 DAYS active Not Available Not Available No t Available lisinopril 20 mg tablet TAKE 1 TABLET BY MOUTH EVERY DAY IN THE MORNING active Not Available Not Available No t Available prednisone 20 mg tablet TAKE 2 TABLETS (40 MG) BY MOUTH ONCE PER DAY FOR 5 DAYS. 06/16 completed Not Available Not Available Not Available permethrin 5 % topical cream APPLY TO SKIN FROM HAIRLINE TO TOES AND WASH OFF 8-10 HOURS LATER. 06/16 completed Not Available Not Available Not Available tramadol 50 mg tablet TAKE 1 TABLET BY MOUTH TWICE A DAY NEEDED FOR PAIN FOR 15 DAYS 06/16 completed Not Available Not Available Not Available acetaminoph en ER 650 mg tablet,exte nded release TAKE 2 TABLETS BY MOUTH EVERY 8 HOURS IF NEEDED FOR MILD PAIN. DO NOT CRUSH, CHEW, OR SPLIT. active Not Available Not Available No t Available methocarbam ol 750 mg tablet TAKE 1 TABLET BY MOUTH 3 TIMES A DAY NEEDED FOR PAIN, MODERATE 10/16 completed Not Available Not Available Not Available tamsulosin 0.4 mg capsule TAKE 1 CAPSULE BY MOUTH EVERYDAY AT BEDTIME active Not Available Not Available No t Available amlodipine 10 mg tablet TAKE 1 TABLET BY MOUTH EVERY DAY IN THE MORNING active Not Available Not Available No t Available lansoprazol e 30 mg capsule,del ayed release TAKE 1 CAPSULE BY MOUTH DAILY active Not Available Not Available No t Available lidocaine 5 % topical patch APPLY 1 PATCH TOPICALLY DAILY, REMOVE PATCHES AFTER 12 HOURS active Not Available Not Available No t Available gabapentin 300 mg capsule TAKE 1 CAPSULE BY MOUTH THREE TIMES A DAY 10/16 completed Not Available Not Available Not Available diclofenac sodium 75 mg tablet,anthony yed release TAKE 1 TABLET BY MOUTH TWICE A DAY NEEDED 06/16 completed Not Available Not Available Not Available pravastatin 20 mg tablet TAKE 1 TABLET (20 MG) BY MOUTH ONCE PER DAY. 06/16 completed Not Available Not Available Not Available azelastine 137 mcg (0.1 %) nasal spray SPRAY 2 SPRAYS INTO EACH NOSTRIL TWICE A DAY FOR 30 DAYS active Not Available Not Available No t Available fluticasone propionate 50 mcg/actuati on nasal spray,suspe nsion TAKE 1 SPRAY IN BOTH NOSTRILS ONCE DAILY 06/16 completed Not Available Not Available Not Available metformin ER 500 mg tablet,exte nded release 24 hr TAKE 1 TABLET BY MOUTH WITH EVENING MEAL 10/16 completed Not Available Not Available Not Available clotrimazol e 1 % topical cream APPLY TO AFFECTED AREA TWICE A DAY 06/16 completed Not Available Not Available Not Available doxycycline hyclate 100 mg tablet PLEASE SEE ATTACHED FOR DETAILED DIRECTION S 06/16 completed Not Available Not Available Not Available ipratropium bromide 21 mcg (0.03 %) nasal spray SPRAY 2 SPRAYS INTO BOTH NARES 3 TIMES A DAY,X30 DAYS 10/16 completed Not Available Not Available Not Available Ventolin HFA 90 mcg/actuati on aerosol inhaler TAKE 2 PUFFS BY MOUTH EVERY 6 HOURS FOR 30 DAYS USE WITH CHAMBER 06/16 completed Not Available Not Available Not Available oxycodone 5 mg tablet TAKE 1 TABLET BY MOUTH EVERY 6 HOURS NEEDED FOR SEVERE PAIN FOR 5 DAYS 06/16 completed Not Available Not Available Not Available alfuzosin ER 10 mg tablet,exte nded release 24 hr TAKE 1 TABLET BY MOUTH EVERY DAY ADMINISTE R AFTER THE SAME MEAL EACH DAY 06/16 completed Not Available Not Available Not Available tadalafil 5 mg tablet TAKE ONE TABLET BY MOUTH EVERY DAY 06/16 completed Not Available Not Available Not Available pregabalin 75 mg capsule TAKE 1 CAPSULE BY MOUTH 2 TIMES DAILY. 10/16 completed Not Available Not Available Not Available Symbicort 160 mcg-4.5 mcg/actuati on HFA aerosol inhaler PLEASE SEE ATTACHED FOR DETAILED DIRECTION S active Not Available Not Available No t Available diclofenac 1 % topical gel APPLY 2 GRAMS TO THE AFFECTED AREA 3 TIMES A DAY NEEDED 06/16 completed Not Available Not Available Not Available potassium chloride ER 20 mEq tablet,exte nded release TAKE 1 TABLET BY MOUTH EVERY DAY FOR 3 DAYS 06/16 completed Not Available Not Available Not Available naloxone 4 mg/actuatio n nasal spray PLEASE SEE ATTACHED FOR DETAILED DIRECTION S 06/16 completed Not Available Not Available Not Available Wegovy 0.25 mg/0.5 mL subcutaneou s pen injector INJECT 0.25MG INTO THE SKIN ONE TIME PER WEEK 10/16 completed Not Available Not Available Not Available Wegovy 0.5 mg/0.5 mL subcutaneou s pen injector INJECT 0.5 MG UNDER THE SKIN EVERY 7 (SEVEN) DAYS. 10/16 completed Not Available Not Available Not Available Zepbound 10 mg/0.5 mL subcutaneou s pen injector INJECT 0.5 ML (10 MG TOTAL) UNDER THE SKIN EVERY 7 (SEVEN) DAYS. active Not Available Not Available No t Available Zepbound 5 mg/0.5 mL subcutaneou s pen injector INJECT 0.5 ML (5 MG TOTAL) UNDER THE SKIN EVERY 7 DAYS 06/16 completed Not Available Not Available Not Available Zepbound 2.5 mg/0.5 mL subcutaneou s pen injector INJECT 0.5 ML (2.5 MG TOTAL) UNDER THE SKIN EVERY 7 (SEVEN) DAYS FOR 28 DAYS. 06/16 completed Not Available Not Available Not Available Zepbound 7.5 mg/0.5 mL subcutaneou s pen injector INJECT 0.5 ML (7.5 MG TOTAL) UNDER THE SKIN EVERY 7 (SEVEN) DAYS. 06/16 completed Not Available Not Available Not Available Omron Blood Pressure Monitor-3 Series kit USE TO CHECK BLOOD PRESSURE DIRECTED 06/16 completed Not Available Not Available Not Available Vitals Date Recorded Body height Body mass index (BMI) Body weight Provider Name and Address Organization Details Last Updated DateTime 06/16/2025 175.26 cm 36.9 kg/m2 196499.09 g Teresa Arndt [facility] 06/16/2025 13:02:21 Social History Question Answer Notes LastModified by [employer] ion Details LastModified Time Tobacco Smoking Status Former Smoker Heron Cruz PA-C [address] [facility] [address], [place], [address], [facility] 04/03/2025 12:43:40 When Did You Quit Smoking? 16+yearssin celastcikareem ette [facility] Information not available 04/03/2025 What Is Your Relationship Status? Single [facility] Information not available 04/03/2025 Sex: Unknown Functional Status Question Answer Note LastModified by Organizat ion Details LastModified Time Do you use any illicit or recreational drugs? No [email or web address] Information not available 04/03/2025 What is your level of alcohol consumption? None [email or web address] Information not available 04/03/2025 Mental Status None recorded. Family History Nothing Reported. Medical History Condition Response Allergies/Hayfever N Coronary Artery Disease N Anxiety/Depression N Breathing or lung disorders N Emphysema N Nerve Disorders N Thyroid Problems N COPD Y Pacemaker N Anemia N Kidney/Bladder Problems N Vascular Disease N Heart Trouble Y Heart Attack (OR) N Gastrointestinal Disease N Cholesterol Y Diabetes N Autoimmune disease N Bleeding Disorder N Inflammatory Joint disease N Orthotics N Arthritis Y Seizures/Epilepsy N Blood Clot N AIDS/HIV N Congestive Heart Failure (CHF) N Acid Reflux (GERD) Y Cancer N Stroke N Asthma N Circulation Problems N Peripheral Vascular Disease N Sleep Apnea N Hepatitis N Heart Disease N Rheumatoid Arthritis N Arrhythmia N Pulmonary Embolism N Headaches N Fibromyalgia N Hypertension Y Osteoporosis N Past Encounters Encounter ID Performer Location Encounter Start Date Encounter Closed Date Diagnosis/Indication Diagnosis SNOMED-CT Code Diagnosis ICD10 Code Diagnosis IMO Codes Diagnosis Note [id number] [facility] Wilson [address] [facility] [place] [address] 06/16/2025 12:37:52 06/16/2025 14:23:15 Osteoarthritis of right hip joint [id number] 58403 M16.11 Health Concerns Section Related Observation LastModified by Organization Detai ls LastModified Time None Recorded Concern Status LastModified by Organization Details LastModified Time None Recorded Payers Encounter Date Sequence Insurance Name Policy Number Policy Orozco Covered Member ID Orozco Member ID Guarantor Name 06/16/2025 1 [place] [id number] Silvestre Vazquez [id number] Silvestre Villalobos
--- OUTSIDE RECORDS SUMMARY | 2025-06-20 16:27 | XMS_ITS | Encounter Summary ---
Author Organization [employer] Address [address] [facility] [address] [place] [address] Care Team Providers Care Sign Builder Supervisor Name Role Phone Aaliyah Roche MD Primary Care Provide r Deb Duncan RN Unavailable [phone] Sylvia Brumfield Unavailable Reason for Visit * Reason Comments Med Refill Encounter Details Date Type Department Care Team (Late Contact Info) Description 03/12/[address] [facility] [address] [place], [place] [phone] Dominga Enrique MD [address] [place] [address] [phone] Dyslipidemia Social History Tobacco Use Types Packs/Day [...] Department Care Team (Late Contact Info) Description 08/11/2025 9:15 AM EST Office Visit [facility] [address] [place] [address] [phone] Aaliyah Roche MD [address] [place] [address] [phone] documented as of this encounter Visit Diagnoses Diagnosis Dyslipidemia Other and unspecified hyperlipidemia documented in this encounter Care Teams Sign Builder Supervisor Relationship Specialty Start Date End Date Aaliyah Roche MD [address] [place] [address] PCP - General Family Medicine 07/03/19 Deb Duncan RN [address] [place] [address] Registered Nurse Family Medicine 03/31/25 Sylvia Brumfield 03/31/25 Aicha CARSON 05/23/25 documented as of this encounter
--- OUTSIDE RECORDS SUMMARY | 2025-06-20 16:27 | XMS_ITS | Data Portability ---
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 History of present illness: The patient is presenting with a chief complaint of right knee and hip pain. He has had pain for months. The patient currently has 7 out of 10 pain. Currently the patient uses a cane or a walker when walking. The patient has tried rest, NSAIDS, physical therapy, corticosteroid injection, and activity modification but continues to have pain. The patient ambulates with an antalgic gait due to the pain. The patient has pain with range of motion of the knee and weight bearing. The pain is made worse with initiation of activity. The patient has difficulty peforming activities of daily living due to this pain. Past medical history: Past medical history reviewed from the patient's intake sheet. Pertinent positives: none Past surgical history: Past surgical history reviewed from the patient's intake sheet. Pertinent positives: none Allergies: Allergies reviewed from the patient's intake sheet. Pertinent positives: nickel allergy Medications: Medications reviewed from the patient's intake sheet. Pertinent positives: none Social history: Social history reviewed from the patient's intake sheet. Pertinent positives: none Physical Examination: The patient is in no acute distress. He is alert and oriented x3. He has nonlabored breathing. His hearing is intact to spoken word. His extra-ocular motion is intact. His BMI is 41.3. Right lower extremity - Alignment: valgus Effusion: moderate Knee range of motion: 0-120 Varus/valgus stress testing: moderate laxity Crepitus: slight Skin is intact without erythema, induration, or ecchymosis. Hip range of motion is from 0-90 degrees. Has 10 degrees of internal rotation and 30 degrees of external rotation. There is moderate tenderness palpation over the lateral aspect of the hip.. Sensation is intact to light touch over the dorsum of the foot, in the first webspace, and over the plantar aspect of the foot. The patient has 5/5 strength with plantarflexion of the ankle, dorsiflexion of the ankle, plantarflexion of the great toe, and dorsiflexion of the great toe. The foot is warm and well-perfused with brisk capillary refill. There is a 2+ dorsalis pedis pulse. Radiographs: 4 views of the right knee including bilateral knee AP, bilateral knee Francisco, right knee lateral, and bilateral knee merchant views were obtained and evaluated in the office today. X-rays demonstrate that the patient has significant osteoarthritis of the right knee with joint space narrowing, subchondral sclerosis, and osteophyte formation. There is no evidence of fracture. 2 views of the right hip including AP pelvis and right hip frog-leg lateral radiographs were also obtained in the office today. These demonstrated preserved joint space without evidence of fracture. Injection: The patient was given a corticosteroid injection in the office today for treatment of right knee pain. Risks of the injection, including but not limited to infection were discussed. Despite the risks, the patient wished to proceed. The patient had an injection containing 4 cc of 1% lidocaine and 1 cc of Kenalog injected into the right knee via an anterolateral approach under sterile technique. The patient tolerated this injection well. There were no complications. Following the injection the patient noted a decrease in pain. The patient was instructed to contact the office if the patient had any reaction at the injection site or any concerns. The patient was also instructed to keep track of how much pain relief the injection provided and how long the injection was effective. Assessment and plan: The patient is presenting with a chief complaint of right knee pain. He demonstrates significant osteoarthritis of the right knee on his radiographs. He was given a corticosteroid injection for his right knee pain in the office today. He can follow up with me as-needed for his right knee pain. He is also having significant pain in his right hip. His radiographs demonstrate preserved joint space. Currently, the patient has pain primarily over the lateral aspect of the hip. This pain is made worse with palpation, consistent with trochanteric bursitis rather than osteoarthritis. The patient was given a prescription for physical therapy in the office today for treatment of trochanteric bursitis. The patient was given a prescription for meloxicam for treatment of trochanteric bursitis pain. The patient was instructed to take this medication once daily for 30 days. The patient was instructed to discontinue use of all other NSAIDs while taking meloxicam to avoid kidney injury. The patient was instructed to take this medication with food to avoid an upset stomach. He can follow up as-needed for his hip pain. [email or web address] Not available 10/20/2024 13:33:27 04/02/2025 04/02/2025 Chief complaint: Right hip pain. History of present illness: The patient is presenting with a chief complaint of right hip pain. The patient has tried rest, NSAIDS, exercise, corticosteroid injection, and activity modification but continues to have pain. He was previously prescribed physical therapy for presumed trochanteric bursitis. He has not gone to physical therapy at this point. Physical examination: The patient is in no acute distress. He is alert and oriented x3. He has nonlabored breathing. His hearing is intact to spoken word. His extra-ocular motion is intact. Right lower extremity - Skin is intact without ecchymosis, induration, or fluctuance. There is no appreciable swelling. Hip range of motion is 0-90 degrees. The patient has 5 degrees of internal rotation and 20 degrees of external rotation. There is moderate tenderness to palpation over the greater trochanter. The patient has full, painless, range of motion of the knee. There is no knee effusion. Sensation is intact to light touch over the dorsum of the foot, in the first webspace, and over the plantar aspect of the foot. The patient has 5/5 strength with plantarflexion of the ankle, dorsiflexion of the ankle, plantarflexion of the great toe, and dorsiflexion of the great toe. The foot is warm and well-perfused with brisk capillary refill. There is a 2+ dorsalis pedis pulse. Radiographs: 2 views of the right hip including low AP pelvis and right leg frog leg lateral radiographs were obtained and evaluated in the office previously and are available for review. X-rays demonstrate relatively preserved joint space in the right hip. There is no evidence of fracture. Assessment and Plan: The patient is presenting with a chief complaint of right hip pain. He demonstrates relatively preserved joint space of the right hip on his radiographs. He certainly has signs consistent with trochanteric bursitis on exam. He was previously prescribed physical therapy which he has not initiated this point. I have recommended that the patient undergo a local anesthetic only intra-articular injection into the right hip to determine how much of the patient's pain is due to intra-articular pathology. I explained that the injection would only be beneficial for a couple of hours. I have asked the patient to perform activities that typically cause pain immediately following this injection. I have asked the patient to record his degree of pain relief in the hours following this injection. The patient will follow up with me 1 week after this injection to determine how much of the pain is due to intra-articular pathology. [email or web address] Not available 04/07/2025 07:41:21 06/16/2025 06/16/2025 I am seeing the patient [...] or to follow up sooner if needed. [email or web address] Not available 06/16/2025 07:39:41 Plan of Treatment Reminders Order Date Submit Date Provider Last Modified By Organization Details Last Modified Time Details Appointments RECHECK 15 2024 01:30P Joce Goss MD Not available Not available Not available Lab None recorded . Referral physical therapis t referral - (THIS PRESCRIP TION EXPIRES 30 DAYS FROM DATE LISTED) PHYSICAL THERAPY REFERRAL S/P SURGERY ICD-10: M70.61 (right), M70.62(L eft), M70.60(B ilateral ) 1. Core stabiliz ation, hip abductor strength ening with focus on eccentri c strength ening and balance training . 2. Soft tissue modaliti es includin g foam rollers as needed. 3. Home exercise and stretchi ng program. Allow 2-3 visits a week for 6 weeks. Complete d by: 2024 025 [email or web address] Not available 10/29/2024 09:17:10 Procedures None recorded . Surgeries None recorded . Imaging XR, shoulder , 2 or more view - room 316 left shoulder /lateral cervical 2024 025 [facility], [address], [place], [address], 04/10/2025 15:52:58 XR, cervical spine, 1 view [facility] [address], [place], [address], 04/10/2025 15:52:58 MRI, shoulder , w/o contrast - rct 2024 025 [facility] [address], [place], [address], 04/10/2025 15:52:58 XR, hip + pelvis, bilatera l, 2 view - 210 2v rt 2024 025 [email or web address] [facility], [address], [place], [address], 10/29/2024 09:17:10 XR, knee, 4 or more view - 210 rt 4v 2024 025 [email or web address] [facility], [address] [facility], [address], [address], 10/29/2024 09:17:10 Medication Orders meloxica m 15 mg tablet [address]/[facility]armacy [id number], [address] [place], [address], 06/16/2025 13:03:58 Mobic 15 mg tablet 2024 025 [id number], [address] [place], [address], 06/16/2025 13:03:58 Patient TargetsNo targets recorded. Patient InstructionsNo instructions recorded. Reason for Referral Physical Therapist Referral for Trochanteric bursitis of right hip (THIS PRESCRIPTION EXPIRES 30 DAYS FROM DATE LISTED)PHYSICAL THERAPY REFERRAL S/P SURGERYICD-10: M70.61 (right), M70.62(Left), M70.60(Bilateral)1. Core stabilization, hip abductor strengthening with focus on eccentric strengthening and balance training.2. Soft tissue modalities including foam rollers as needed.3. Home exercise and stretching program.Allow 2-3 visits a week for 6 weeks.Completed by: Referring Physician: Heron Mojica, Orthopedic Surgery, Encounter Date: 10/16/2024 Results Created Date Observation Date Name Description Value Unit Range Abnormal Flag Note LastModifiedBy Organization Detail LastModifiedTime 10/16/19 25 10/16/2024 XR, knee, 4 or more view http:/ [email or web address] ?Encry pted=s hAaTro YD8dLq bEUv6g %2BXZw aYqtaq 0bqfl% 2Fg9IQ a4ajBk vP9nXo QUaueC m3YtLR FvZlgJ JJ8mAn HZtai3 4i6449 AC0Kqb XyGVKO lKiQtr MwF [facility] [address], [place], [address], 10/16/2024 14:08:33 10/16/19 25 10/16/2024 XR, knee, 4 or more view http:/ [email or web address] ?Encry pted=s hAaTro YD8dLq bEUv6g %2BXZw aYqtaq 0bqfl% 2Fg9IQ a4ajBk vP9nXo QUaueC m3YtLR FvZlgJ JJ8mAn HZtai3 6b0052 AC0Kqb XyGVKO lKiQtr MwF INTERFACE [facility] [address], [place], [address], 10/16/2024 14:08:35 10/16/19 25 10/16/2024 XR, hip + pelvi s, bilat eral, 2 view http:/ [email or web address] ?Encry pted=s hAaTro YD8dLq bEUv6g %2BXZw aYqtaq 0bqfl% 2Fg9IQ a4ajBk vP9nXo QUaueC m3YtLR FvZlgJ JJ8mAn HZtai3 2e5198 AC0Kqb XyGVKK vKiQtr MwF INTERFACE [facility] [address], [place], [address], 10/16/2024 14:10:08 10/16/19 25 10/16/2024 XR, hip + pelvi s, bilat eral, 2 view [email or web address]:/ [email or web address] ?Encry pted=s hAaTro YD8dLq bEUv6g %2BXZw aYqtaq 0bqfl% 2Fg9IQ a4ajBk vP9nXo QUaueC m3YtLR FvZlgJ JJ8mAn HZtai3 5z8294 AC0Kqb XyGVKK vKiQtr MwF INTERFACE [facility] [address], [place], [address], 10/16/2024 14:10:10 04/03/20 25 04/03/2025 XR, cervi kell spine , 1 view http:/ [email or web address] ?Encry pted=s hAaTro YD8dLq bEUv6g %2BXZw aYqtaq 0bqfl% 2Fg9IQ a4ajBk vP9nXo QUaueC m3YtLR FvZlgJ JJ8mAn HZtai3 8f6065 AC0Klb nqDVqK hKiQtr MwF INTERFACE [facility] [address], [place], [address], 04/03/2025 12:50:00 04/03/20 25 04/03/2025 XR, cervi kell spine , 1 view http:/ [email or web address] ?Encry pted=s hAaTro YD8dLq bEUv6g %2BXZw aYqtaq 0bqfl% 2Fg9IQ a4ajBk vP9nXo QUaueC m3YtLR FvZlgJ JJ8mAn HZtai3 2z9989 AC0Klb nqDVqK hKiQtr MwF INTERFACE [facility] [address] [facility] [address], [place], [address], 04/03/2025 12:50:02 04/03/20 25 04/03/2025 XR, bennie pako, 2 or more view http:/ [email or web address] ?Encry pted=s hAaTro YD8dLq bEUv6g %2BXZw aYqtaq 0bqfl% 2Fg9IQ a4ajBk vP9nXo QUaueC m3YtLR FvZlgJ JJ8mAn HZtai3 9v3339 AC0Klb nqDVqK gKiQtr MwF INTERFACE [facility] [address], [place], [address], 04/03/2025 12:53:43 04/03/20 25 04/03/2025 XR, shoul pako, 2 or more view http:/ [email or web address] ?Encry pted=s hAaTro YD8dLq bEUv6g %2BXZw aYqtaq 0bqfl% 2Fg9IQ a4ajBk vP9nXo QUaueC m3YtLR FvZlgJ JJ8mAn HZtai3 3z8343 AC0Klb nqDVqK gKiQtr MwF INTERFACE [facility] [address], [place], [address], 04/03/2025 12:53:45 04/15/20 25 04/14/2025 XR, lumba r spine , 2 view No observ ation record ed. [address], [address], 04/16/2025 13:58:33 04/15/20 25 04/15/2025 XR, cervi kell spine , 1 view No observ ation record ed. [address], [address], 04/15/2025 12:23:35 04/15/20 25 04/14/2025 XR, thora cic spine , 3 view No observ ation record ed. [email or web address] [address], [address], 04/16/2025 13:57:57 04/29/20 25 04/25/2025 MRI, bennie pako, w/o contr ast [facility] Access ion Number : [id number] Name: Wilfredo Silvestre daigle Record Number : [id number] Date of : 1964 Date of Exam: 2024 Referr ing Physic shellie: Mihai Higginbotham [facility] [address] [place] [address] Exam: MR Should er (C-) CPT 68557 - Left Room Descri ption: [facility]io 3.0T Clinic al Histor y: Other specif ic joint derang ements of the left should er, questi on rotato r cuff tear. The patien t report s severe daily left should er pain for 3 to 4 weeks after hearin g a pop while liftin g a heavy bucket . Techni que: MRI of the left should er was perfor med withou t intrav enous contra st. Compar charo: None. Findin gs: Rotato r cuff: There is a full-t hickne ss tear of supras pinatu s and infras pinatu s, both of which are retrac catie medial to the joint line. Modera te decrea sed muscle bulk of supras pinatu s and mild fatty infilt ration of infras pinatu s. There is mild edema in the infras pinatu s and a small amount in the supras pinatu s. There is subsca pulari s tendin opathy . Glenoi d labrum and biceps tendon : There is no displa dilip labral tear. The biceps tendon is in the groove . AC joint: There is modera te acromi oclavi cular degene rative change of bony prolif eratio n and subcho ndral marrow edema like signal . Articu lar cartil age: There is mild chondr al thinni ng inferi hi on the yasmeen l head. No focal chondr al defect . Bone: There is subcho ndral cyst in the supervising floorperson ior aspect of the greate r tubero sity. Mild bone marrow edema like signal seen more anteri hi in the greate r tubero sity. Impres madeleine: 1. Full-t hickne ss retrac catie tears of supras pinatu s and infras pinatu s. 2. Modera te acromi oclavi cular and mild glenoh umeral degene rative change . Electr onical ly Signed By: Yamile Dickson ra, MD [email or web address] [facility] ([facility]) [address], [place], [address], 04/29/2025 14:33:54 Result Notes Documentation Provider Name and Address Organization Details Recorded Time Xr, Knee, 4 Or More View : [email or web address] crypted=vcWwZhzUA2pWuyQUu4n %9EZTypCutyv4axxt%8Zh5YIx7b cKbgS5yXfVAviqUd2DbRQEjUfnO CB3fYuYSrig36q8886ZS2PfjQfA VKOlKiQtrMwF Not Available [facility] 10/16/2024 14:08:34 Xr, Knee, 4 Or More View : [email or web address] crypted=ftTiTtdAB2bUroZLn6n %2LQKivHmmxg2xhlr%4Yo0XFy3g sVifG9iEzHPyhmVj9YvEERiQwqZ AC9hKhXEsnh31t6357NV7KtcMbG VKOlKiQtrMwF Not Available [facility] 10/16/2024 14:08:36 Xr, Hip + Pelvis, Bilateral, 2 View : [email or web address] crypted=dyVaYkfJR2pCrhOQg7o %9VUNyuAixmx6cxzk%9Iu0TLz1d vSivQ2lMbTPufyIv6YyOMLwNyhQ CY0xVcFLzcg68y1310QJ0SorBrN VKKvKiQtrMwF Not Available [facility] 10/16/2024 14:10:08 Xr, Hip + Pelvis, Bilateral, 2 View : [email or web address] crypted=jnYaKnoNQ7hIgtFDa9q %4FXCokKchfr1yeol%3Ny0SZi5w tWfsE7bRiXZisfVi9GyMQTjQvgI MW3hDkJCiar48e0795UN6SdeNnW VKKvKiQtrMwF Not Available [facility] 10/16/2024 14:10:11 Xr, Cervical Spine, 1 View : [email or web address] crypted=guMpXuoGJ8yCqrKXu9a %6DWYftUopme2vvcb%8Dc0WJr8i jBeiY5vOmPQdoqPw0YfMJOyUiiY LK5xEwCNgdt72u9062RP5JokewW VqKhKiQtrMwF Not Available [facility] 04/03/2025 12:50:01 Xr, Cervical Spine, 1 View : [email or web address] crypted=vtVnUmwXB9sRlqGVe4x %6AUIpeFsanj4laxs%4Ok0EHc1d xMcmK0tKiZGeuoTr6PjJORkKjwC HR3oDdHIbpe35l0773CK6EnkfcV VqKhKiQtrMwF Not Available [facility] 04/03/2025 12:50:03 Xr, Shoulder, 2 Or More View : [email or web address] crypted=liNcSnfEK3lNruVFc4p %9EEYbbAklje2mlgk%2Kq2SFv4e hUlfR3aMbHEqbkWx3PsPVQzGgrB HB0pVjBTpwo20e0553IU6IqeweG VqKgKiQtrMwF Not Available [facility] 04/03/2025 12:53:44 Xr, Shoulder, 2 Or More View : [email or web address] crypted=seXcPhqGZ3oImhSTd7u %5QGXdaJcmby5hsvk%2Gn7YNu7v aUswZ5nFcYKwquNp0SsGGHaDxpQ ZI1iIeUCjul78g7636KV9XuikcE VqKgKiQtrMwF Not Available [facility] 04/03/2025 12:53:45 Mri, Shoulder, W/o Contrast : [facility] Accession Number: [id number] Patient Name: Silvestre Villalobos Date of : 1965 Date of Exam: 04-25-2025 Referring Physician: Nancy, Heron [facility] ([facility]) [address], [address] [place] [address] Exam: MR Shoulder (C-) CPT 60649 - Left Room Description: [facility] 3.0T Clinical History: Other specific joint derangements of the left shoulder, question rotator cuff tear. The patient reports severe daily left shoulder pain for 3 to 4 weeks after hearing a pop while lifting a heavy bucket. Technique: MRI of the left shoulder was performed without intravenous contrast. Comparison: None. Findings: Rotator cuff: There is a full-thickness tear of supraspinatus and infraspinatus, both of which are retracted medial to the joint line. Moderate decreased muscle bulk of supraspinatus and mild fatty infiltration of infraspinatus. There is mild edema in the infraspinatus and a small amount in the supraspinatus. There is subscapularis tendinopathy. Glenoid labrum and biceps tendon: There is no displaced labral tear. The biceps tendon is in the groove. AC joint: There is moderate acromioclavicular degenerative change of bony proliferation and subchondral marrow edema like signal. Articular cartilage: There is mild chondral thinning inferiorly on the humeral head. No focal chondral defect. Bone: There is subchondral cyst in the posterior aspect of the greater tuberosity. Mild bone marrow edema like signal seen more anteriorly in the greater tuberosity. Impression: 1. Full-thickness retracted tears of supraspinatus and infraspinatus. 2. Moderate acromioclavicular and mild glenohumeral degenerative change. Electronically Signed By: Yamile almanza [place] - [facility] 04/29/2025 14:33:54 Problems Name Problem SNOMED Code Status Onset Date Resolution Date Notes Provider Name and Address Organization Details Recorded Time Pain of left shoulder region Active 2024 Heron Cruz PA-C [address], [place], [address], [facility] 5 12:44:49 Traumatic left rotator cuff tear Active 2024 Heron Cruz PA-C [address], [place], [address], [facility] 5 06:03:52 Derangement of left shoulder joint 8214595855322 9106 Active 2024 Heron Cruz PA-C [address], [place], [address], [facility] 5 13:04:02 Metal foreign body in back 105102058 Active [address] [facility] 5 09:30:25 Problem Notes None recorded. Procedures Surgical History Date Name Laterality Status Provider Name and Address Organization Details Recorded Time 5 JZHip completed Zacarias Bermudez PA-C [address] [facility], [place], [address], [facility] 06/16/2025 07:39:04 5 Sports Shoulder 4&1 completed Heron Cruz PA-C [address] [facility], [place], [address], [facility] 04/30/2025 11:10:06 5 Knee Kenalog 1cc L/R completed Heron Goss MD [address] [facility], [place], [address], [facility] 10/20/2024 13:30:30 Imaging Results None recorded. Procedure Notes None recorded. Medical Equipment None Reported. Allergies Allergen ID Allergen Name Allergen Category Reaction Reaction Severity Criticality Documentation Date Start Date Code Code System Note Provider Name and Address Organization Details Recorded Time 525371 baclofen medicatio n Not available Not available Not available 10/16/2024 1292 RxNorm TAYLOR AZOUINA [facility], [facility] 5 13:57:16 Medications Name Sig Start Date Stop [...] Available Not Available Vitals Date Recorded Body weight Body mass index (BMI) Body height Provider Name and Address Organization Details Last Updated DateTime 10/16/2024 777047.43 g 41.3 kg/m2 175.26 cm TAYLOR THORNEKristy [facility] 10/16/2024 13:56:08 Date Recorded Body height Body mass index (BMI) Body weight Provider Name and Address Organization Details Last Updated DateTime 04/02/2025 175.26 cm 36.9 kg/m2 560331.09 g Karyn Lovett [facility] 04/02/2025 17:00:34 Date Recorded Body height Body mass index (BMI) Body weight Provider Name and Address Organization Details Last Updated DateTime 04/03/2025 175.26 cm 36.9 kg/m2 228859.09 g Heron Cruz PA-C [address], [place], [address], [facility] 04/03/2025 12:43:17 Date Recorded Body height Body mass index (BMI) Body weight Provider Name and Address Organization Details Last Updated DateTime 04/30/2025 175.26 cm 36.9 kg/m2 524457.09 g Heron Cruz PA-C [address] [facility], [place], [address], [facility] 04/30/2025 10:51:14 Date Recorded Body height Body mass index (BMI) Body weight Provider Name and Address Organization Details Last Updated DateTime 06/16/2025 175.26 cm 36.9 kg/m2 354678.09 g Teresa Arndt [facility] 06/16/2025 13:02:21 Social History Question Answer Notes LastModified by Organizat ion Details LastModified Time Tobacco Smoking Status Former Smoker Heron Cruz PA-C [address], [place], [address], [facility] [facility] 04/03/2025 12:43:40 When Did You Quit Smoking? 16+yearssin [facility] Information not available 04/03/2025 What Is Your Relationship Status? Single [place] [address] Information not available 04/03/2025 Sex: Unknown Functional Status Question Answer Note LastModified by Organizat ion Details LastModified Time Do you use any illicit or recreational drugs? No [place] [address] Information not available 04/03/2025 What is your level of alcohol consumption? None [place] [address] Information not available 04/03/2025 Mental Status None recorded. Family History Nothing Reported. Medical History Condition Response Allergies/Hayfever N Coronary Artery Disease N Anxiety/Depression N Breathing or lung disorders N Emphysema N Nerve Disorders N Thyroid Problems N COPD Y Pacemaker N Anemia N Kidney/Bladder Problems N Vascular Disease N Heart Trouble Y Heart Attack ([place]) N Gastrointestinal Disease N Cholesterol Y Diabetes N Autoimmune disease N Inflammatory Joint disease N Bleeding Disorder N Orthotics N Arthritis Y Seizures/Epilepsy N [...] ICD10 Code Diagnosis IMO Codes Diagnosis Note [id number] MD BORIS Shafer [address] [place] [address] 10/16/2024 13:43:57 10/29/2024 09:17:09 Pain of hip region 45958989 M25.551 654603 Pain of ri ght knee region [id number] 02641 M25.561 [id number] Trochanter ic bursitis of right hip 8555265160 67233 M70.61 1337237 Osteoarthr itis of right knee joint 9277567497 92174 M17.11 [id number] MD BORIS Shafer [address] [place] [address] 04/02/2025 16:56:21 04/08/2025 14:53:33 Trochanteric bursitis of right hip [id number] 73516 M70.61 1715399 [id number] JESÚS Calderon [address] [place] [address] 04/03/2025 12:38:25 04/10/2025 15:52:58 Pain of left shoulder region 0969005707 M25.512 77287472 Traumatic left rotator cuff tear 0285564538 1057898 S46.012A [id number] Derangemen t of left shoulder joint 6032983164 6105429 M24.267 [id number] JESÚS Calderon [address] [place] [address] 04/30/2025 10:13:32 05/09/2025 09:55:52 Traumatic left rotator cuff tear 8822004568 4183371 S46.012D 763759774 [id number] JESÚS Wilson [address] [place] [address] 06/16/2025 12:37:52 06/16/2025 14:23:15 Osteoarthritis of right hip joint 4497214558 69553 M16.11 Health Concerns Section Related Observation LastModified by Organization Detai ls LastModified Time None Recorded Concern Status LastModified by Organization Details LastModified Time None Recorded Advance Directives Directive None Recorded Payers Insurance Date Sequence Insurance Name Policy Number Policy Orozco Covered Member ID Orozco Member ID Guarantor Name 06/16/2025 1 [place] [facility] Silvestre Vazquez [id number] Silvestre Villalobos Notes Date Note Type Note Provider Name and Address Organization Details Recorded Time 04/03/2025 text/html I am seeing this patient under the supervision of Dr. Florez who was available but did not see the patient. HPI: Patient is a 59-year-old male who comes the office today for evaluation of traumatic injury happened to his left shoulder while lifting a 5 gallon bucket. He felt severe onset pain now has had limitations and inability lift his arm away from his body. He denies history of prior injuries, he was seen at a local hospital was given a sling and now comes in today for orthopedic evaluation. PFMSH and ROS has been reviewed, updated, and signed by me and is located in the patient s chart. PHYSICAL EXAMINATION: The patient is well appearing and in no apparent distress. Alert and oriented x 3. Gait is symmetric. Examination of the right shoulder findings include: ROM forward elevation 105 , external rotates 15 , internal rotates to back pocket, full passive range of motion, 3/5 strength including rotator cuff and periscapular musculature. Good Muscle bulk and strength without atrophy. No evidence of instability of the shoulder. Positive impingement signs. Moderate AC joint tenderness, Mild tenderness within the bicipital groove. Negative Speed's, Negative O'briens, Negative Thierno tests. Cervical ROM normal without radicular symptoms. No erythema, no redness, no warmth. Peripheral, vascular, lymphatic examination, skin, neurological, coordination, reflexes, sensation are within normal limits. X-RAY REPORT: X-rays were ordered, obtained and independently reviewed today at [facility]. Four views of the Left shoulder demonstrate type III acromion with ossification of the CA ligament, well-preserved glenohumeral joint, AC joint arthritis, cystic changes involving greater tuberosity. Lateral C-spine x-ray shows multilevel advanced degenerative disc disease throughout the neck. IMPRESSION: Acute rotator cuff tear left shoulder PLAN: Today we do brief conversation about treatment options going forward based on his severe weakness on exam after traumatic injury and unfavorable acromial morphology I recommended an MRI scan of the left shoulder. Potential benefit of injection was discussed but ideally we we would prefer to delay this pending the need for surgical intervention. He was given oral NSAIDs which she can utilize for optimizing pain control. The patient was prescribed an oral anti-inflammatory medication today. The associated risk factors of prolonged use of the oral NSAID including the potential risk of GI bleeding was discussed in detail and appropriate precautions will be taken. [facility] speech recognition web site specialist software was used to create portions of this document. An attempt at proofreading has been made to minimize errors. Please call for corrections. Heron Cruz PA-C [address] [place], [place] [address] [address], [place], [address], [facility] 04/03/2025 13:16:35 04/30/2025 text/html I am seeing this patient under the supervision of Dr. Florez who was available but did not see the patient. HPI: Patient is a 59-year-old male who comes the office today for evaluation of traumatic injury happened to his left shoulder while lifting a 5 gallon bucket. He felt severe onset pain now has had limitations and inability lift his arm away from his body. He denies history of prior injuries, he was seen at a local hospital was given a sling and now comes in today for orthopedic evaluation. Clinical update: Patient returns today for follow-up evaluation, he continues to have chief complaint of weakness in the left shoulder relative to his previous injury. MRI findings: Independently reviewed today of the left shoulder demonstrate full-thickness tear of supraspinatus and infraspinatus with retraction to the glenoid rim, type II acromial spur AC joint arthritis, biceps tendinopathy, partial-thickness tear upper border subscapularis. Examination of the right shoulder findings include: ROM forward elevation 105 , external rotates 15 , internal rotates to back pocket, full passive range of motion, 3/5 strength including rotator cuff and periscapular musculature. Good Muscle bulk and strength without atrophy. No evidence of instability of the shoulder. Positive impingement signs. Moderate AC joint tenderness, Mild tenderness within the bicipital groove. Negative Speed's, Negative O'briens, Negative Thierno tests. Cervical ROM normal without radicular symptoms. No erythema, no redness, no warmth. Peripheral, vascular, lymphatic examination, skin, neurological, coordination, reflexes, sensation are within normal limits. X-RAY REPORT: X-rays were ordered, obtained and independently reviewed today at [facility]. Four views of the Left shoulder demonstrate type III acromion with ossification of the CA ligament, well-preserved glenohumeral joint, AC joint arthritis, cystic changes involving greater tuberosity. Lateral C-spine x-ray shows multilevel advanced degenerative disc disease throughout the neck. IMPRESSION: Acute on chronic rotator cuff tear left shoulder PLAN: Today we discussed the MRI findings in particular my concern about the true size of the tear retraction really medial to the glenoid with significant atrophy in particular involving supraspinatus. Considering the size of the tear degree of retraction chronicity of this my opinion this is not a fixable type tear which should manage her symptoms optimally I believe definitive care for him long-term would be reverse total shoulder arthroplasty or possibly superior capsular reconstruction because of the integrity of the subscapularis. [facility] speech recognition web site specialist software was used to create portions of this document. An attempt at proofreading has been made to minimize errors. Please call for corrections. Heron Cruz PA-C [address] [place], [place] [address] [address], [place], [address], [facility] 04/30/2025 11:12:24
--- OUTSIDE RECORDS SUMMARY | 2025-06-20 16:27 | XMS_ITS ---
Author Organization [employer] Address [address] [facility] [address]t [place] [address] Care Team Providers Care Supervisor Mixing Name Role Phone Aaliyah Roche MD Primary Care Provide r Deb Duncan RN Unavailable [phone] Sylvia Brumfield Unavailable CM Complex Status:Enrolled (Active) Start date:03/31/2025 Enrollment date:04/09/2025 Enrollment reason:ADT Feed Overview ED- Pt went to [facility] ED on 03/29/25. Case Team Name Relationship Phone Deb Duncan RN(Responsible Staff) Registered Nurse [phone] Continued Care and Services Coordination
--- OUTSIDE RECORDS SUMMARY | 2025-06-20 16:27 | XMS_ITS | Clinical Summary ---
Author Organization [facility] Address [address] [place] [address] Care Team Providers Care Halfway House Counselor Name Role Phone Sabra Lim Primary Care Provider [phone] Allergies Active Allergy Reactions Criticality Noted Date [...] Use Screening 08/28/2024 COVID-19 Vaccine (1 - 2024-2 6 season) 2025 Influenza Vaccine (#1) 2025 05/21/2013 RSV Vaccine (60+ years old a nd patients) (1 - 1-dose 75+ series) 2040 Hepatitis B Vaccines Aged Out No long er eligible based on patient's age to complete this topic Insurance [employer] Care Teams Halfway House Counselor Relationship Specialty Start Date End Date Sabra Lim [address] [place] [address] JOSE G Barrera [id number] PCP - General 09/04/20
--- OUTSIDE RECORDS SUMMARY | 2025-06-20 16:27 | XMS_ITS | Encounter Summary ---
Author Organization [employer] Address [address] [facility] [place] [address] Care Team Providers Care [place] Supervisor Name Role Phone Aaliyah Roche MD Primary Care Provide r Deb Duncan RN Unavailable [phone] Sylvia Brumfield Unavailable Reason for Visit * Reason Comments Med Refill Encounter Details Date Type Department Care Team (Late st Contact Info) Description 12/18/[address] [facility] [address] [place], [place] [phone] Aaliyah Roche MD [address] [place], [place] [phone] Essential hypertension Social History Tobacco Use Types [...] AM EST Office Visit [facility] [address] [place] [id number] Aaliyah Roche MD [address] [place] [address] documented as of this encounter Visit Diagnoses Diagnosis Essential hypertension Unspecified essential hypertension documented in this encounter Additional Health Concerns Assessment Noted Time PHQ-9 Depression Total Score: 12 024 11:05 AM EDT documented as of this encounter Care Teams [place] Supervisor Relationship Specialty Start Date End Date Aaliyah Roche MD [address] [place] [address] PCP - General Family Medicine 07/03/19 Deb Duncan RN [address] [place] [address] Registered Nurse Family Medicine 03/31/25 Sylvia Brumfield 03/31/25 Aicha GALEANAA 05/23/25 documented as of this encounter
--- OUTSIDE RECORDS SUMMARY | 2025-06-20 16:27 | XMS_ITS | Encounter Summary ---
Author Organization [employer] Address [address] [facility] [address] [place] [address] Care Team Providers Care Recovery Operator Helper Name Role Phone Aaliyah Roche MD Primary Care Provide r Deb Duncan RN Unavailable [phone] Sylvia Brumfield Unavailable Reason for Visit * Reason Onset Date Comments chart prep 06/17/2025 Encounter Details Date Type Department Care Team ([facility] st Contact Info) Description 06/17/2025 Telephone [facility] [address] [place] [address] Aaliyah Orozco MD [address] [place] [address] chart prep Social History Tobacco Use Types Packs/Day Years [...] encounter Miscellaneous Notes * Telephone Encounter - Tiny Romero [place] - 06/17/2025 9:04 AM EDT Chart Prep Labs: done Images: done Referrals: complete Vaccines due: Flu, Tdap, RSV, and Zoster Screenings: foot exam and HIV screening Overdue care gaps: Not applicable documented in this encounter Plan of Treatment Upcoming Encounters Date Type Department Care Team (Late st Contact Info) Description 08/11/2025 9:15 AM EST Office Visit [facility] [address] [place] [address] Aaliyah Roche MD [address] [place] [address] documented as of this encounter Visit Diagnoses Not on filedocumented in this encounter Additional Health Concerns Assessment Noted Time PHQ-9 Depression Total Score: 0 04/09/20 25 3:16 PM EDT documented as of this encounter Care Teams Recovery Operator Helper Relationship Specialty Start Date End Date Aaliyah Roche MD [address] [place] [address] PCP - General Family Medicine 07/03/19 Deb Duncan RN [address] [place] [address] JOSE G Savage [id number] Registered Nurse Family Medicine 03/31/25 Sylvia Brumfield 03/31/25 Aicha CARSON 05/23/25 documented as of this encounter
== END ==
LOC: HO.CARD 14:41
PROVIDERS: PCP Internal Medicine; Visit Provider Internal Medicine Cardiovascular Disease
DX: I71.20 Thoracic aortic aneurysm, without rupture, unspecified (principal)
CPT/HCPCS: 93306; Q9957

== ENCOUNTER → 2025-06-20 14:44 | Outpatient (BNV) | payer MEDICAID, SELFPAY | PROVIDERS: PCP Internal Medicine; Visit Provider Internal Medicine Cardiovascular Disease | DX: I35.1 Nonrheumatic aortic (valve) insufficiency (principal); I71.21 Aneurysm of the ascending aorta, without rupture; I51.89 Other ill-defined heart diseases | CPT/HCPCS: 93306 ==

== ENCOUNTER 2025-07-09 14:56 | Outpatient (REF) | payer MEDICAID, SELFPAY ==
--- OUTSIDE RECORDS SUMMARY | 2025-07-09 14:00 | XMS_ITS | Encounter Summary ---
Author Organization [employer] Address [address] [place] [address] Care Team Providers Care Etymology Teacher Name Role Phone Aaliyah Roche MD Primary Care Provide r Deb Duncan RN Unavailable [phone] Sylvia Brumfield Unavailable Encounter Details Date Type Department Care Team ([facility] st Contact Info) Description 07/09/2025 2:00 PM EST Office Visit [facility] MEDICINE [address] [place] [address] Aaliyah Roche MD [address] [place], [place] [phone] Neuropathic pain (Primary Dx); Abnormality of thoracic aorta Social History Tobacco Use Types Packs/Day Years [...] Sign Reading Time Taken Comments Blood Pressure 130/82 07/09/2025 2:13 PM EST Pulse 63 07/09/2025 2:13 PM EST Temperature 36.3 C (97.4 F) 07/09/2025 2:13 PM EST Respiratory Rate 17 07/09/2025 2:13 PM EST Oxygen Saturation 96% 07/09/2025 2:13 PM EST Inhaled Oxygen Concentration - - Weight 115 kg (253 lb 9.6 oz) 07/09/2025 2:13 PM EST Height 177.8 cm (5' 10 ) 07/09/2025 2:13 PM EST Body Mass Index 36.39 07/09/2025 2:13 PM EST documented in this encounter Progress Notes * Aaliyah Hernandez MD - 07/09/2025 2:00 PM EST Images from the original note were not included. SUBJECTIVE: Silvestre Vazquez is a 60 y.o. year old male who presents for Chronic Disease Management . Silvestre Villalobos Vazquez, 60 years Chest Pain and Neuropathic Symptoms - Persistent chest pain since aortic surgery - Pain described as daily, present upon waking, and sometimes radiates to the leg and upper back - Pain localized to the sternum, ribs, and chest, sometimes radiates posteriorly - Describes pain as worse than previous pain, with concern for nerve involvement - Sensation described as tingling, electric shock, burning, and alternating hot/cold - Pain sometimes triggered by movement or pressure on affected areas - Reports temporary relief with oxycodone and acetaminophen, but relief lasts only 2-3 hours - Previous trials of gabapentin and pregabalin without benefit for a different pain - Pain increases when arm is not kept down; improvement noted when arm is rested and not used for forceful activities - Reports difficulty sleeping due to pain Hypertension - Monitors blood pressure regularly, especially in the afternoon and evening and states it has being in the high side - Takes antihypertensive medication in the morning at 9:00 AM Emergency Department Visit - Presented to emergency department after surgery due to severe chest pain - Hospitalized for 2 days for observation - Cardiac evaluation reportedly normal; no change in heart condition since prior to surgery Misc - Expresses desire to avoid opioid use and psychological dependence - Reports difficulty discontinuing oxycodone due to withdrawal-like sensations Social History Social History Narrative Not on file Problem List[1] Gastroesophageal reflux disease Erosive gastritis Esophagitis Lumbar spondylosis HTN (hypertension) Dissection of aorta (HCC) Impaired fasting glucose Obstructive sleep apnea Lightheadedness Class 3 severe obesity with serious comorbidity and body mass index (BMI) of 40.0 to 44.9 in adult (HCC) Prediabetes Changing skin lesion Blurring of visual image Chronic thoracic back pain Other chronic postprocedural pain Knee pain Lumbar back pain Lumbar radiculopathy Sprain of foot Subluxation of joint Thoracic aortic aneurysm without rupture (CMS/HCC) Ascending aortic aneurysm (CMS/HCC) Tinea pedis Ulcer of foot (CMS/HCC) (HCC) Obesity (BMI 30-39.9) Essential hypertension Benign prostatic hyperplasia Chest discomfort Diabetes mellitus (HCC) Dysphagia Elevated blood pressure Erectile dysfunction Giardia Pure hypercholesterolemia Multiple lipomas PUD (peptic ulcer disease) Radiculitis, lumbosacral Right bundle branch block RUQ pain Sacroiliitis (CMS/HCC) Shortness of breath Therapeutic opioid-induced constipation (OIC) Varicose veins of right lower extremity with inflammation Abdominal wall pain in right upper quadrant Atypical chest pain Chronic pain 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 Morbid obesity (CMS/HCC) (HCC) Obesity Aortic dissection distal to left subclavian (CMS/HCC) (HCC) Descending thoracic aortic dissection (CMS/HCC) (HCC) Abnormality of thoracic aorta Peripheral vascular disease (CMS/HCC) Lumbar back pain with radiculopathy affecting right lower extremity Degenerative arthritis of lumbar spine Class 3 severe obesity due to excess calories with serious comorbidity and body mass index (BMI) of40.0 to 44.9 in adult ([facility]) Encounter for preventative adult health care examination BPH associated with nocturia Colon cancer screening 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 HENT: Negative. Respiratory: Negative. Cardiovascular: Positive for chest pain. Negative for palpitations and leg swelling. Musculoskeletal: Chest wall pain OBJECTIVE: Vitals: 07/09/25 1413 BP: 130/82 BP Location: Left arm Patient Position: Sitting BP Cuff Size: Large adult Pulse: 63 Resp: 17 Temp: 97.4 ??F (36.3 ??C) TempSrc: Temporal SpO2: 96% Weight: 253 lb 9.6 oz (115 kg) Height: 5' 10 (1.778 m) Physical Exam Constitutional: Appearance: Normal appearance. Cardiovascular: Rate and Rhythm: Normal rate and regular rhythm. Pulmonary: Effort: Pulmonary effort is normal. Breath sounds: Normal breath sounds. Chest: Comments: Pain Abdominal: General: Abdomen is flat. Palpations: Abdomen is soft. Neurological: Mental Status: He is alert. Follow Up: No follow-ups on file. Medications Ordered Prior to Encounter[3] Problem List Items Addressed This Visit Abnormality of thoracic aorta Neuropathic pain - Primary Relevant Medications amitriptyline (Elavil) 25 MG tablet capsaicin (Capzasin-HP) 0.1 % cream Other Relevant Orders Vitamin B12/Folate, Serum Panel Homocysteine Methylmalonic Acid RPR (Monitor) with Reflex to Titer TSH W/Reflex to FT4 Abnormality of thoracic aorta: - Thoracic aorta abnormality post-surgical intervention. No evidence of cardiac involvement or aortic enlargement per recent emergency evaluation and surgical follow-up. - Continue monitoring blood pressure. Follow-up with vascular surgery scheduled for July 25, 2025. Neuropathic pain: - Neuropathic pain likely related to nerve involvement, presenting as paresthesia, electric sensations, and discomfort in the chest, ribs, and back. Differential diagnosis includes neuropathy secondary to vitamin deficiency, thyroid dysfunction, or syphilis. - Prescribed amitriptyline 25 mg nightly, with plan to titrate dose as needed. Prescribed topical capsaicin for local application to affected areas. Ordered laboratory tests: vitamin B12, folic acid,syphilis serology, and thyroid hormone panel. Scheduled telephone follow-up in July 2025 to assess response and review lab results. Advised to continue acetaminophen as needed for pain control. [1] Patient Active Problem List Diagnosis Gastroesophageal reflux disease Erosive gastritis Esophagitis Lumbar spondylosis HTN (hypertension) Dissection of aorta ([facility]) Impaired fasting glucose Obstructive sleep apnea Lightheadedness Class 3 severe obesity with serious comorbidity and body mass index (BMI) of 40.0 to 44.9 in adult ([facility]) Prediabetes Changing skin lesion Blurring of visual image Chronic thoracic back pain Other chronic postprocedural pain Knee pain Lumbar back pain Lumbar radiculopathy Sprain of foot Subluxation of joint Thoracic aortic aneurysm without rupture (CMS/[facility]) Ascending aortic aneurysm (CMS/[facility]) Tinea pedis Ulcer of foot (CMS/HCC) ([facility]) Obesity (BMI 30-39.9) Essential hypertension Benign prostatic hyperplasia Chest discomfort Diabetes mellitus ([facility]) Dysphagia Elevated blood pressure Erectile dysfunction Giardia Pure hypercholesterolemia Multiple lipomas PUD (peptic ulcer disease) Radiculitis, lumbosacral Right bundle branch block RUQ pain Sacroiliitis (CMS/HCC) Shortness of breath Therapeutic opioid-induced constipation (OIC) Varicose veins of right lower extremity with inflammation Abdominal wall pain in right upper quadrant Atypical chest pain Chronic pain 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 Morbid obesity (CMS/HCC) ([facility]) Obesity Aortic dissection distal to left subclavian (CMS/HCC) ([facility]) Descending thoracic aortic dissection (CMS/HCC) ([facility]) Abnormality of thoracic aorta Peripheral vascular disease (CMS/HCC) Lumbar back pain with radiculopathy affecting right lower extremity Degenerative arthritis of lumbar spine Class 3 severe obesity due to excess calories with serious comorbidity and body mass index (BMI) of40.0 to 44.9 in adult ([facility]) Encounter for preventative adult health care examination BPH associated with nocturia Colon cancer screening 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 [3] Current Outpatient Medications on File Prior to Visit Medication Sig Dispense Refill acetaminophen (Tylenol 8 Hour) 650 MG ER tablet Take 2 tablets by mouth every 8 (eight) hours if needed for mild pain. albuterol (2.5 MG/3ML) 0.083% nebulizer solution Take 3 mL (2.5 mg) by nebulization every 6 (six) hours if needed for wheezing or shortness of breath. 75 mL 1 Alpha-Lipoic Acid 600 MG capsule Take 1 capsule (600 mg) by mouth Once per day. (Patient not taking: Reported on 06/18/2025) 90 capsule 0 amLODIPine (Norvasc) 10 MG tablet TAKE 1 TABLET BY MOUTH EVERY DAY IN THE MORNING 90 tablet 1 aspirin 81 MG EC tablet Take 1 tablet by mouth Once per day. Azelastine HCl 137 MCG/SPRAY solution SPRAY 2 SPRAYS INTO EACH NOSTRIL TWICE A DAY FOR 30 DAYS Blood Pressure kit Please use to check BP as directed 1 kit 0 carvedilol (Coreg) 25 MG tablet TAKE 2 TABLETS BY MOUTH TWICE A DAY WITH FOOD 360 tablet 1 clotrimazole (Lotrimin) 1 % cream Apply topically 2 times daily. 60 g 1 Diclofenac Sodium 1 % gel Apply 1 Application topically if needed each day (back pain ,costochondritis). 50 g 0 glucose blood test strip Use daily to check finger stick BS (Patient not taking: No sig reported) 100 each 12 lansoprazole (Prevacid) [address] capsule Take 1 capsule by mouth 2 times daily. lisinopril 20 MG tablet TAKE 1 TABLET BY MOUTH EVERY DAY IN THE MORNING 90 tablet 1 metFORMIN XR (Glucophage-XR) 500 MG 24 hr tablet TAKE 1 TABLET BY MOUTH WITH EVENING MEAL (Patient not taking: Reported on 04/09/2025) 90 tablet 1 Nebulizer misc 1 Units Every 4-6 hours as needed (Q6 hr PRN per albuterol order). Pt provided Acceleron Nebulizer machine. Education provided. Pt verbalized understanding. permethrin (Elimite) 5 % cream apply to skin from hairline to toes and wash off 8-10 hours later (Patient not taking: Reported on 04/09/2025) 60 g 1 pravastatin (Pravachol) 20 MG tablet Take 1 tablet (20 mg) by mouth Once per day. 30 tablet 11 Symbicort 160-4.5 MCG/ACT inhaler tadalafil (Cialis) 5 MG tablet Take 1 tablet by mouth Once per day. (Patient not taking: Reported on 06/18/2025) tamsulosin (Flomax) 0.4 MG 24 hr capsule Take 1 capsule by mouth Once per day. Ventolin HFA 108 (90 Base) MCG/ACT inhaler Inhale 2 puffs every 6 (six) hours. Zepbound 10 MG/0.5ML solution auto-injector Inject 0.5 mL under the skin every 7 (seven) days. No current facility-administered medications on file prior to visit. documented in this encounter Plan of Treatment Upcoming Encounters Date Type Department Care Team (Late st Contact Info) Description 08/11/2025 9:15 AM EST Office Visit [facility] MEDICINE [address] [place] [address] Aaliyah Roche MD [address] [place] [address] Scheduled Orders Name Type Priority Associated Diagnoses Orde r Schedule Vitamin B12/Folate, Serum Panel Lab Routine Neuropathic pain Expected: 07/09/2025, Expires: 07/09/2026 Homocysteine Lab Routine Neuropathic pain Expected: 07/09/2025 (Approximate), Expires: 07/09/2026 Methylmalonic Acid Lab Routine Neuropathic pain Expected: 07/09/2025 (Approximate), Expires: 07/09/2026 RPR (Monitor) with Reflex to Titer Lab Routine Neuropathic pain Expected: 07/09/2025, Expires: 07/09/2026 TSH W/Reflex to FT4 Lab Routine Neuropathic pain Expected: 07/09/2025 (Approximate), Expires: 07/09/2026 documented as of this encounter Visit Diagnoses Diagnosis Neuropathic pain- Primary Abnormality of thoracic aorta documented in this encounter Additional Health Concerns Assessment Noted Time PHQ-9 Depression Total Score: 0 04/09/20 25 3:16 PM EDT documented as of this encounter Care Teams Etymology Teacher Relationship Specialty Start Date End Date Aaliyah Roche MD [address] [place] [address] PCP - General Family Medicine 07/03/19 Deb Duncan RN [address] [place] [address] Registered Nurse Family Medicine 03/31/25 Sylvia Brumfield 03/31/25 07/09/25 Aicha CARSON 05/23/25 documented as of this encounter
[2025-07-09 16:19] LABS: Appearance Urine Clear; Glucose Urine UA Negative (Negative); PH 5.5 (5.0-9.0); Specific Gravity - Urine 1.025 (1.005-1.025); UMIC TRIGGER UA YES
--- OUTSIDE RECORDS SUMMARY | 2025-07-09 18:18 | XMS_ITS | Encounter Summary ---
Author Organization [employer] Address [address] [place] [address] Care Team Providers Care Formwork Carpenter Name Role Phone Aaliyah Roche MD Primary Care Provide r Deb Duncan RN Unavailable Sylvia Brumfield Unavailable Reason for Visit * Reason Comments Med Change Request Encounter Details Date Type Department Care Team ([facility] st Contact Info) Description 03/05/2025 Refill [facility] MEDICINE [address] [place], [place] [phone] Aaliyah Roche MD [address] [place], [place] [phone] Neuropathy Social History Tobacco Use Types Packs/Day [...] Description 08/11/2025 9:15 AM EST Office Visit [facility] MEDICINE [address] [place] [phone] Aaliyah Roche MD [address] [place] [phone] documented as of this encounter Visit Diagnoses Diagnosis Neuropathy Mononeuritis of unspecified site documented in this encounter Additional Health Concerns Assessment Noted Time PHQ-9 Depression Total Score: 0 03/05/20 8:59 AM EDT documented as of this encounter Care Teams Formwork Carpenter Relationship Specialty Start Date End Date Aaliyah Roche MD [address] [place] [phone] PCP - General Family Medicine 07/03/19 Deb Duncan, RN [address] [place] [phone] Registered Nurse Family Medicine 03/31/25 Sylvia Brumfield 03/31/25 07/09/25 Aicha CARSON 05/23/25 documented as of this encounter
--- OUTSIDE RECORDS SUMMARY | 2025-07-09 18:18 | XMS_ITS | Encounter Summary ---
Author Organization [employer] Address [address] [place] [address] Care Team Providers Care Chamber Worker Name Role Phone Aaliyah Roche MD Primary Care Provide r Deb Duncan RN Unavailable [phone] Sylvia Brumfield Unavailable Encounter Details Date Type Department Care Team ([facility] Contact Info) Description 01/06/2023 Orders Only [facility] [address] [place], [place] [phone] Alyssa Mackey LPN Social History Tobacco Use [...] Upcoming Encounters Date Type Department Care Team ([facility] Contact Info) Description 08/11/2025 9:15 AM EST Office Visit [facility] [address] [place], [place] [phone] Aaliyah Roche MD [address] [place], [place] [phone] documented as of this encounter Visit Diagnoses Not on filedocumented in this encounter Care Teams Chamber Worker Relationship Specialty Start Date End Date Aaliyah Roche MD [address] [place] [address] PCP - General Family Medicine 07/03/19 Deb Duncan RN [address] [place] [phone] Registered Nurse Family Medicine 03/31/25 Sylvia Brumfield 03/31/25 07/09/25 Aicha CARSON 05/23/25 documented as of this encounter
--- OUTSIDE RECORDS SUMMARY | 2025-07-09 18:18 | XMS_ITS | Encounter Summary ---
Author Organization [employer] Address [address] [place] [address] Care Team Providers Care Industrial Chemicals Supervisor Name Role Phone Aaliyah Roche MD Primary Care Provide r Deb Duncan RN Unavailable [phone] Sylvia Brumfield Unavailable Reason for Visit * Reason Comments Med Refill Encounter Details Date Type Department Care Team (Late st Contact Info) Description 12/18/[address] [facility] MEDICINE [address] [place], [place] [phone] Aaliyah Roche MD [address] [place], [place] [phone] Essential hypertension Social History Tobacco Use Types [...] AM EST Office Visit [facility] MEDICINE [address] [place] [phone] Aaliyah Roche MD [address] [place] [address] documented as of this encounter Visit Diagnoses Diagnosis Essential hypertension Unspecified essential hypertension documented in this encounter Additional Health Concerns Assessment Noted Time PHQ-9 Depression Total Score: 12 024 11:05 AM EDT documented as of this encounter Care Teams Industrial Chemicals Supervisor Relationship Specialty Start Date End Date Aaliyah Roche MD [address] [place] [address] PCP - General Family Medicine 07/03/19 Deb Duncan RN [address] [place] [phone] Registered Nurse Family Medicine 03/31/25 Sylvia Brumfield 03/31/25 07/09/25 Aicha CARSON 05/23/25 documented as of this encounter
--- OUTSIDE RECORDS SUMMARY | 2025-07-09 18:18 | XMS_ITS | Encounter Summary ---
Author Organization [employer] Address [address] [place] [address] Care Team Providers Care Diet Therapist Name Role Phone Aaliyah Roche MD Primary Care Provide r Deb Duncan RN Unavailable [phone] Sylvia Brumfield Unavailable Encounter Details Date Type Department Care Team (Latest Contact Info) Description 07/09/2025 Travel Social History Tobacco Use Types Packs/Day [...] Description 08/11/2025 9:15 AM EST Office Visit [facility] MEDICINE [address] [place] [phone] Aaliyah Roche MD [address] [place] [phone] documented as of this encounter Visit Diagnoses Not on filedocumented in this encounter Additional Health Concerns Assessment Noted Time PHQ-9 Depression Total Score: 0 04/09/20 3:16 PM EDT documented as of this encounter Care Teams Diet Therapist Relationship Specialty Start Date End Date Aaliyah Roche MD [address] [place] [address] PCP - General Family Medicine 07/03/19 Deb Duncan RN [address] [place] [phone] Registered Nurse Family Medicine 03/31/25 Sylvia Brumfield 03/31/25 07/09/25 Aicha GALEANAA 05/23/25 documented as of this encounter
--- OUTSIDE RECORDS SUMMARY | 2025-07-09 18:18 | XMS_ITS | Data Portability ---
Author Organization [place] [facility], BORIS Duncan PT Address [address] [place] [address] Care Team Providers Care Artificial Leather Calender Operator Name Role Phone ROLANDOKristy HOMER MONTOYA Primary Care Provider Assessment Encounter Date Assessment Date Assessment LastModified by Organization Details LastModified Time 04/02/2025 04/02/2025 Chief complaint: Right hip pain. [...] the pain is due to intra-articular pathology. [email or web address] Not available 04/07/2025 07:41:21 06/16/2025 06/16/2025 I [...] or to follow up sooner if needed. [email or web address] Not available 06/16/2025 07:39:41 06/24/2025 06/24/2025 Chief complaint: Right hip pain. History of present illness: The patient is presenting with a chief complaint of right hip pain. The patient has tried rest, NSAIDS, exercise, and activity modification but continues to have pain. The patient ambulates with an antalgic gait due to the pain. The patient has pain with range of motion of the hip and weight bearing. The pain is made worse with initiation of activity. The patient has difficulty performing activities of daily living due to this pain. he underwent a local anesthetic only intraarticular injection for his right hip and had considerable pain relief for 8 hours. He indicated that he would be very happy if you feel like that at all times. Physical examination: The patient is in no [...] and are available for review. X-rays demonstrate lpxf-yn-jhqzhixz degenerative changes in the right hip with some joint space narrowing. There is no evidence of fracture. Assessment and Plan: The patient is presenting with a chief complaint of right hip pain. He demonstrates pvui-xw-fadsmolw osteoarthritis of the right hip on his radiographs. At this point, the patient has failed non-operative treatment of his right hip osteoarthritis. The patient has tried NSAIDs, rest, exercise, and activity modification but continues to have worsening pain for greater than 3 months. A thorough discussion was had with the patient regarding both nonsurgical and surgical interventions for treatment of right hip osteoarthritis. Since the patient has experienced worsening pain despite conservative treatment, the patient wished to proceed with surgery. The nature of hip replacement surgery, the potential risks, benefits, complications, the magnitude of the surgery, the intensity of postoperative recovery, and the elective nature of a right total hip arthroplasty were discussed at length. Risks and complications discussed included infection requiring further surgery or potential removal of implants, persistent infection requiring possible amputation, wound healing complications, leg length discrepancy, leg rotational discrepancy, instability or dislocation, need for additional surgery or revision arthroplasty, aseptic loosening, implant failure, injury to nerve, foot drop, numbness, injury to blood vessel, bleeding, hematoma, need for transfusion, fracture, heart attack, stroke, deep vein thrombosis, pulmonary embolism, and even intraoperative or postoperative . Despite these risks, the patient still wished to proceed with surgery. The patient was instructed that I am happy to meet again at any time in order to review any additional questions or concerns the patient might have. Since the patient wishes to proceed, we will schedule the patient for a right total hip arthroplasty. The patient will require clearance from a medical doctor prior to surgery. The next planned follow-up is at the preoperative history and physical appointment. He underwent a local anesthetic only intraarticular injection has right hip and had considerable pain relief that lasted for 8 hours. I explained that a total hip arthroplasty will make him feel similar to how he felt during the injection. I explained that the pain over the lateral aspect of his hip with palpation would likely remain and sometimes worsens following elective total hip arthroplasty. He indicated he understood and still wished to proceed with surgery given his significant improvement during the 8 hours following his local anesthetic intraarticular injection. [email or web address] Not available 06/24/2025 14:02:55 Plan of Treatment Reminders Order Date Submit Date Provider Last Modified By Organization Details Last Modified Time Details Appointments None recorded. Lab None recorded. Referral None recorded. Procedures None recorded. Surgeries None recorded. Imaging XR, shoulder, 2 or more view - room 316 left shoulder/ lateral cervical 2024 025 [facility], [address], [address], [place], [address], 5 15:52:58 XR, cervical spine, 1 view [facility] [address], [address], [place], [address], 5 15:52:58 MRI, shoulder, w/o contrast - rct 2024 025 [facility] ([facility]), [address], [place], [address], 5 15:52:58 Medication Orders meloxicam 15 mg tablet [address] [id number], [address] [place], [address], 13:03:58 Patient TargetsNo targets recorded. Patient InstructionsNo instructions recorded. Reason for Referral None Reported. Results Created Date Observation Date Name Description Value Unit Range Abnormal Flag Note LastModifiedBy Organization Detail LastModifiedTime 04/03/2004/03/2025 XR, cervi kell spine , 1 view http:/ [email or web address] ?Encry pted=s hAaTro YD8dLq bEUv6g %2BXZw aYqtaq 0bqfl% 2Fg9IQ a4ajBk vP9nXo QUaueC m3YtLR FvZlgJ JJ8mAn HZtai3 8i1024 AC0Klb nqDVqK hKiQtr MwF INTERFACE [facility] [address], [place], [address], 04/03/2025 12:50:00 04/03/20 25 04/03/2025 XR, cervi kell spine , 1 view http:/ [email or web address] ?Encry pted=s hAaTro YD8dLq bEUv6g %2BXZw aYqtaq 0bqfl% 2Fg9IQ a4ajBk vP9nXo QUaueC m3YtLR FvZlgJ [place] HZtai3 2p6005 AC0Klb nqDVqK hKiQtr MwF INTERFACE [facility] [address], [place], [address], 04/03/2025 12:50:02 04/03/20 25 04/03/2025 XR, shoul pako, 2 or more view http:/ [email or web address] ?Encry pted=s hAaTro YD8dLq bEUv6g %2BXZw aYqtaq 0bqfl% 2Fg9IQ a4ajBk vP9nXo QUaueC m3YtLR FvZlgJ JJ8[place] HZtai3 6p5265 AC0Klb nqDVqK gKiQtr MwF INTERFACE [facility] [address], [place], [address], 04/03/2025 12:53:43 04/03/20 25 04/03/2025 XR, shoul pako, 2 or more view http:/ [email or web address] ?Encry pted=s hAaTro YD8dLq bEUv6g %2BXZw aYqtaq 0bqfl% 2Fg9IQ a4ajBk vP9nXo QUaueC m3YtLR FvZl JJ8[place] HZtai3 5u3850 AC0Klb nqDVqK gKiQtr MwF INTERFACE [facility] [address] [facility] [address], [place], [address], 04/03/2025 12:53:45 04/15/20 25 04/14/2025 XR, lumba r spine , 2 view No observ ation record ed. [email or web address] [facility] [address] [facility], [place], [address], 04/16/2025 13:58:33 04/15/20 25 04/15/2025 XR, cervi kell spine , 1 view No observ ation record ed. ALIZE [facility] [address] [place], [address], 04/15/2025 12:23:35 04/15/20 25 04/14/2025 XR, thora cic spine , 3 view No observ ation record ed. [email or web address] [facility] [address] [place], [address], 04/16/2025 13:57:57 04/29/20 25 04/25/2025 MRI, shoul pako, w/o contr ast [facility] Access ion Number : [id number] Name: Silvestre Villalobos Record Number : [id number] Date of : 1964 Date of Exam: 2024 Referr ing Physic shellie: [facility] ([facility] [address], [address] [place] [address] Exam: MR Should er (C-) CPT 58816 - Left Room Descri ption: [facility] 3.0T Clinic al Histor y: Other specif [...] There is subcho ndral cyst in the mail order clerk ior aspect of the greate r tubero [...] ly Signed By: Yamile Dickson ra, MD [email or web address] [facility] ([facility]) [address] [facility], [place], [address], 04/29/2025 14:33:54 Result Notes Documentation Provider Name and Address Organization Details Recorded Time Xr, Cervical Spine, 1 View : [email or web address] crypted=rsDmRgaJJ6aBntGEp2r %6WKOldVgivp8yywm%0Rg2KQn6o tEsnS7fLxVLaxuHa8LnWAXqBadI NJ7fDqDQzvq75o1435UK7QedceI VqKhKiQtrMwF Not Available [facility] 04/03/2025 12:50:01 Xr, Cervical Spine, 1 View : [email or web address] crypted=eqFgXqzRP2yEmpETe3l %6WNLseXhxck0zadv%4Ep6DEc5x oWivI0ySvKZnseRy3SlRBCbNouN ZB2tJvVPuxg84x2120MM8PrevyC VqKhKiQtrMwF Not Available [facility] 04/03/2025 12:50:03 Xr, Shoulder, 2 Or More View : [email or web address] crypted=zuKfTvbMI7sMlmRIu4j %8HWNkxMldud8powz%5Nl8HCc1c wBqzJ9xFqRItgfJp6UeUTQwMurL EA4rWaMDumo24x0346IM8AenvdT VqKgKiQtrMwF Not Available [facility] 04/03/2025 12:53:44 Xr, Shoulder, 2 Or More View : [email or web address] crypted=cmMiPtpIM2cUxjARp8y %5XYVvfKbuuz3qpky%2Ho3UMt2k mGdzY2yIjYEmehVn7IrRNZqExeF UV6sRiGMxlr79r0075UA7MdakaX VqKgKiQtrMwF Not Available [facility] 04/03/2025 12:53:45 Mri, Shoulder, W/o Contrast : [facility] Accession Number: [id number] Patient Name: Silvestre Villalobos Date of : 1965 Date of Exam: 04-25-2025 Referring Physician: Heron Cruz [facility] ([facility]) [address] [facility], [address] [place] [address] Exam: MR Shoulder (C-) CPT 69199 - Left Room Description: [facility] 3.0T Clinical History: Other specific joint derangements [...] glenohumeral degenerative change. Electronically Signed By: [facility] 04/29/2025 14:33:54 Problems Name Problem SNOMED Code Status Onset Date Resolution Date Notes Provider Name and Address Organization Details Recorded Time Pain of left shoulder region Active 2024 Heron Cruz PA-C [address], [place], [address], [facility] 12:44:49 Traumatic left rotator cuff tear Active 2024 Heron Cruz PA-C [address], [place], [address], [facility] 5 06:03:52 Derangement of left shoulder joint 2299939553544 9106 Active 2024 Heron Cruz PA-C [address], [place], [address], [facility] 5 13:04:02 Metal foreign body in back 118336639 Active 20[facility] 09:30:25 Problem Notes None recorded. Procedures Surgical History Date Name Laterality Status Provider Name and Address Organization Details Recorded Time [facility] completed Zacarias Bermudez PA-C [address], [place], [address], [facility] 06/16/2025 07:39:04 5 Sports Shoulder 4&1 completed Heron Cruz PA-C [address], [place], [address], [facility] 04/30/2025 11:10:06 Knee Kenalog 1cc L/R completed Heron Goss MD [address], [place], [address], [facility] 10/20/2024 13:30:30 Imaging Results None recorded. Procedure Notes None recorded. Medical Equipment None Reported. Allergies Allergen ID Allergen Name Allergen Category Reaction Reaction Severity Criticality Documentation Date Start Date Code Code System Note Provider Name and Address Organization Details Recorded Time 129722 baclofen medicatio n Not available Not available Not available 10/16/2024 1292 RxNorm TAYLOR AZOAICHA [facility] 13:57:16 Medications Name Sig Start Date [...] oxycodone 5 mg tablet TAKE 1 TABLET (5 MG) BY MOUTH EVERY 12 (TWELVE) HOURS IF NEEDED FOR SEVERE PAIN FOR UP TO 5 DAYS. active Not Available Not Available No t Available alfuzosin ER 10 mg tablet,exte nded [...] Available diclofenac 1 % topical gel APPLY 1 APPLICATI ON TOPICALLY IF NEEDED EACH DAY (BACK PAIN ,COSTOCHO NDRITIS). active Not Available Not Available No t Available potassium chloride ER 20 mEq tablet,exte [...] Updated DateTime 04/02/2025 175.26 cm 36.9 kg/m2 178506.09 g Karyn Lovett [place] [facility] 04/02/2025 17:00:34 Date Recorded Body height Body mass index (BMI) Body weight Provider Name and Address Organization Details Last Updated DateTime 04/03/2025 175.26 cm 36.9 kg/m2 819008.09 g Heron Cruz PA-C [address] [facility] [address], [place], [address], [place] [facility] 04/03/2025 12:43:17 Date Recorded Body height Body mass index (BMI) Body weight Provider Name and Address Organization Details Last Updated DateTime 04/30/2025 175.26 cm 36.9 kg/m2 750085.09 g Heron Cruz PA-C [address] [employer] [address], [place], [address], [facility] 04/30/2025 10:51:14 Date Recorded Body height Body mass index (BMI) Body weight Provider Name and Address Organization Details Last Updated DateTime 06/16/2025 175.26 cm 36.9 kg/m2 307474.09 g Teresa Nunezoche [facility] 06/16/2025 13:02:21 Date Recorded Body height Provider Name an d Address Organization Details Last Updated DateTime 06/24/2025 175.26 cm TAYLOR THORNEKristy [facility] 06/24/2025 13:41:40 Social History Question Answer Notes LastModified by Organizat ion Details LastModified Time Tobacco Smoking Status Former Smoker Heron Cruz PA-C [address], [place], [address], [facility] 04/03/2025 12:43:40 When Did You Quit Smoking? 16+yearssin eugenia [place] [address] Information not available 04/03/2025 What Is Your Relationship Status? [place] [address] Information not available 04/03/2025 Sex: Unknown Functional Status Question Answer Note LastModified by Organizat ion Details LastModified Time Do you use any illicit or recreational drugs? No Information not available 04/03/2025 What is your level of alcohol consumption? None [email or web address] Information not available 04/03/2025 Mental Status None recorded. Family History Nothing Reported. Medical History Condition Response Allergies/Hayfever N Coronary Artery Disease N Anxiety/Depression N Breathing or lung disorders N Emphysema N Nerve Disorders N Thyroid Problems N COPD Y Pacemaker N Anemia N Kidney/Bladder Problems N Vascular Disease N Heart Trouble Y Heart Attack ([place]) N Gastrointestinal Disease N Cholesterol Y Diabetes [...] ICD10 Code Diagnosis IMO Codes Diagnosis Note [id number] MD BORIS Shafer [address] [place] [address] 10/16/2024 13:43:57 10/29/2024 09:17:09 Pain of hip region 62855646 M25.551 681456 Pain of ri ght knee region 4905474327 22522 M25.561 78534228 Trochanter ic bursitis of right hip 6360212661 94990 M70.61 5457176 Osteoarthr itis of right knee joint 4295808480 11882 M17.11 2912688 2022609 MD BORIS Shafer [address] [place] [address] 04/02/2025 16:56:21 04/08/2025 14:53:33 Trochanteric bursitis of right hip 9608205923 43992 M70.61 5673105 [id number] JESÚS Calderon [address] [place] [address] 04/03/2025 12:38:25 04/10/2025 15:52:58 Pain of left shoulder region 0456270973 M25.512 72673758 Traumatic left rotator cuff tear 3785265313 7542860 S46.012A 030140104 Derangemen t of left shoulder joint 1191540540 0273825 M24.418 [id number] JESÚS Calderon [address] [place] [address] 04/30/2025 10:13:32 05/09/2025 09:55:52 Traumatic left rotator cuff tear 1469064942 1582094 S46.012D 103408180 0805111 JESÚS Wilson [address] [place] [address] 06/16/2025 12:37:52 06/24/2025 09:18:32 Osteoarthritis of right hip joint 7109223748 36866 M16.11 [id number] MD BORIS Shafer [address] floor [address] [place] [address] 06/24/2025 13:30:05 07/04/2025 14:21:49 Osteoarthritis of right hip joint 4985272453 93539 M16.11 [id number] Health Concerns Section Related Observation LastModified by Organization Detai ls LastModified Time None Recorded Concern Status LastModified by Organization Details LastModified Time None Recorded Advance Directives Directive None Recorded Payers Insurance Date Sequence Insurance Name Policy Number Policy Orozco Covered Member ID Orozco Member ID Guarantor Name 07/04/2025 1 [place] [facility] MichaelKristy Vazquez [id number] Silvestre Villalobos Notes Date Note Type Note [...] ordered, obtained and independently reviewed today at [facility]. Four views of the Left shoulder [...] detail and appropriate precautions will be taken. Football [employer]ister speech recognition weekend anchor software was used to create portions of this document. An attempt at proofreading has been made to minimize errors. Please call for corrections. Heron Cruz PA-C [address] [place] [address] [address] [facility], [place], [address], [facility] - [facility] 04/03/2025 13:16:35 04/30/2025 text/html I am seeing [...] ordered, obtained and independently reviewed today at [facility]. Four views of the Left shoulder [...] because of the integrity of the subscapularis. [facility] speech recognition weekend anchor software was used to create portions of this document. An attempt at proofreading has been made to minimize errors. Please call for corrections. Heron Cruz PA-C [address], [place], [address], [facility] - [facility] 04/30/2025 11:12:24
--- OUTSIDE RECORDS SUMMARY | 2025-07-09 18:18 | XMS_ITS ---
Author Organization [employer] Address [address] [facility] [address] [place] [address] Care Team Providers Care Toilet Products Molder Name Role Phone Aaliyah Roche MD Primary Care Provide r Deb Duncan RN Unavailable [phone] Sylvia Brumfield Unavailable CHW Complex Status:Closed (Closed) Start date:03/31/2025 Enrollment date:04/09/2025 Enrollment reason:ADT Feed End date:07/09/2025 Close reason:Goals Met Overview ED- [place] [facility] [place]. Please outreach for enrollment. Case Team Name Relationship Phone Sylvia Brumfield(Responsible Staff) [phone] Continued Care and Services Coordination
--- OUTSIDE RECORDS SUMMARY | 2025-07-09 18:18 | XMS_ITS | Clinical Summary ---
Author Organization [facility] Address [address] [place] [address] Phone Care Team Providers Care Medical Office Coordinator Name Role Phone Aaliyah Ann MD Primary Care Provider Tyree Weber MD Unavailable [phone] Allergies Active Allergy Reactions Criticality Noted Date [...] patient's age to complete this topic IPV VACCINES Aged Out No longer eligi ble based on patient's age to complete this topic MENINGOCOCCAL VACCINES (ACWY) Aged Out No longer eligible based on patient's age to complete this topic MENINGOCOCCAL VACCINES (B) Aged Out N o longer eligible based on patient's age to complete this topic Medical Devices Not on file Insurance [facility] C3 ACO [facility] C[address] [place] [address] [place] [address] C3 ACO Care Teams Medical Office Coordinator Relationship Specialty Start Date End Date Alaiyah Ann MD [address] [place] [address] PCP - General Internal Medicine 04/29/20 Tyree Weber MD [address] [place] [address] Band Aid Machine Operator Cardiology 05/28/20 Additional Source Comments The information contained in this document represents components of the legal health record. It is not the complete legal health record.[facility]
--- OUTSIDE RECORDS SUMMARY | 2025-07-09 18:18 | XMS_ITS | Encounter Summary ---
Author Organization [employer] Address [address] [facility] [place] [address] Care Team Providers Care Transformer Coil Winder Name Role Phone Aaliyah Roche MD Primary Care Provide r Deb Duncan RN Unavailable [phone] Sylvia Brumfield Unavailable Reason for Visit * Reason Comments Care Coordination CHW outreach sdoh Encounter Details Date Type Department Care Team (Latest Contact Info) Description 07/09/2025 Patient Outreach [facility] [address] [place] [address] Aaliyah Roche MD [address] [place] [address] Care Coordination (CHW outreach sdoh) Social History Tobacco Use Types Packs/Day Years [...] as of this encounter Progress Notes * Syliva Brumfield - 07/09/2025 12:40 PM EST CHW Sylvia Brumfield placed outbound call to patient for follow up on SDOH needs. Patient's name, DOBand address not confirmed. No answer at this time. CHW LVM reinforcing direct contact information for any additional questions or concerns and extended clinic hours on Mondays and Wednesdays, and Walk-In Urgent Care Located in [facility]. Patient provided with after-hours line for [facility], , which offer night time triage service and option to transfer to adoption social worker provider if needed. CHW LVM discussing with the patient progress made in the CHW Program. Patient was notified in voicemail that they are being graduated from the Care Management-CHW Program. Voicemail also entailed education on how to receive SDOH services inthe future. documented in this encounter Plan of Treatment Upcoming Encounters Date Type Department Care Team ([facility] st Contact Info) Description 08/11/2025 9:15 AM EST Office Visit [address] [address] Aaliyah Roche MD [address] [place] [address] documented as of this encounter Visit Diagnoses Not on filedocumented in this encounter Additional Health Concerns Assessment Noted Time PHQ-9 Depression Total Score: 0 04/09/20 25 3:16 PM EDT documented as of this encounter Care Teams Transformer Coil Winder Relationship Specialty Start Date End Date Aaliyah Roche MD [address] [place] [address] PCP - General Family Medicine 07/03/19 Deb Duncan RN [address] [place] [address] Registered Nurse Family Medicine 03/31/25 Sylvia Brumfield 03/31/25 07/09/25 Aicha CARSON 05/23/25 documented as of this encounter
--- OUTSIDE RECORDS SUMMARY | 2025-07-09 18:18 | XMS_ITS | Clinical Summary ---
Author Organization [facility] Address [address] [place] [address] Care Team Providers Care Orthotic Finish Grinding Technician Name Role Phone Sabra Lim Primary [...] patient's age to complete this topic Insurance [employer] Care Teams Orthotic Finish Grinding Technician Relationship Specialty Start Date End Date Sabra Lim [address] [place] [address] JOSE G Barrera [address] PCP - General 09/04/20
--- OUTSIDE RECORDS SUMMARY | 2025-07-09 18:18 | XMS_ITS | Encounter Summary ---
Author Organization [employer] Address [address] [place] [address] Care Team Providers Care Mobile Therapist Name Role Phone Aaliyah Roche MD Primary Care Provide r Deb Duncan RN Unavailable [phone] Sylvia Brumfield Unavailable Reason for Visit * Reason Comments Med Refill Encounter Details Date Type Department Care Team (Late st Contact Info) Description 10/21/2024 Refill [facility] [address] [place], [place] [phone] Aaliyah Roche MD [address] [place], [place] [phone] Dyslipidemia Social History Tobacco Use Types Packs/Day [...] Description 08/11/2025 9:15 AM EST Office Visit [facility] [address] [place] [phone] Aaliyah Roche MD [address] [place] [address] documented as of this encounter Visit Diagnoses Diagnosis Dyslipidemia Other and unspecified hyperlipidemia documented in this encounter Additional Health Concerns Assessment Noted Time PHQ-9 Depression Total Score: 12 024 11:05 AM EDT documented as of this encounter Care Teams Mobile Therapist Relationship Specialty Start Date End Date Aaliyah Roche MD [address] [place] [address] PCP - General Family Medicine 07/03/19 Deb Duncan RN [address] [place] [phone] Registered Nurse Family Medicine 03/31/25 Sylvia Brumfield 03/31/25 07/09/25 Aicha GALEANAA 05/23/25 documented as of this encounter
--- OUTSIDE RECORDS SUMMARY | 2025-07-09 18:18 | XMS_ITS | Encounter Summary ---
Author Organization [employer] Address [address] [place] [address] Care Team Providers Care Program Management Manager Name Role Phone Aaliyah Roche MD Primary Care Provide r Deb Duncan RN Unavailable [phone] Sylvia Brumfield Unavailable Reason for Visit * Reason Comments Med Refill Encounter Details Date Type Department Care Team (Late st Contact Info) Description 12/21/2024 Refill [facility] [address] [place], [place] [phone] Aaliyah Roche MD [address] [place], [place] [phone] Essential hypertension Social History Tobacco Use Types [...] Description 08/11/2025 9:15 AM EST Office Visit [facility] [address] [place] [phone] Aaliyah Roche MD [address] [place] [address] documented as of this encounter Visit Diagnoses Diagnosis Essential hypertension Unspecified essential hypertension documented in this encounter Additional Health Concerns Assessment Noted Time PHQ-9 Depression Total Score: 12 024 11:05 AM EDT documented as of this encounter Care Teams Program Management Manager Relationship Specialty Start Date End Date Aaliyah Roche MD [address] [place] [address] PCP - General Family Medicine 07/03/19 Deb Duncan RN [address] [place] [phone] Registered Nurse Family Medicine 03/31/25 Sylvia Brumfield 03/31/25 07/09/25 Aicha CARSON 05/23/25 documented as of this encounter
--- OUTSIDE RECORDS SUMMARY | 2025-07-09 18:18 | XMS_ITS | Encounter Summary ---
Author Organization [employer] Address [address] [place] [address] Care Team Providers Care Farm Equipment Engineer Name Role Phone Aaliyah Roche MD Primary Care Provide r Deb Duncan RN Unavailable [phone] Sylvia Brumfield Unavailable Encounter Details Date Type Department Care Team ([facility] st Contact Info) Description 07/09/2025 Orders Only GENERIC EXTERNAL DATA DEPARTMENT Provider, [...] t he electric, gas, oil or water [employer] threatened to shut off services in your [...] Description 08/11/2025 9:15 AM EST Office Visit [facility] [address] [place] [phone] Aaliyah Roche MD [address] [place] [address] documented as of this encounter Procedures Procedure Name Priority Date/Time Associated Diagnosis Comments URINALYSIS, COMPLETE Routine 07/09/2025 3:10 PM EST documented in this encounter Results * (ABNORMAL) Urinalysis Complete (07/09/2025 3:10 PM EST) Color Urine Yellow [facility] Appearance Urine Clear [facility] PH 5.5 5.0 - 9.0 [facility] Glucose Urine UA Negative Negative mg/dL [facility] Urine Blood Large (3+)(A) Negative [facility] Specific [place] - Urine 1.025 1.005 - 1.025 [facility] Urine Protein 30 (1+)(A) Neg-Trace mg/dL [facility] Urine Ketones Negative Negative mg/dL [facility] Nitrite Urine Negative Negative [facility] Leukocyte Esterase Urine Negative Negative [facility] RBC Urine >20(A) 0 - 2 /HPF [facility] Urine WBC 0-5 0 - 5 /HPF [facility] Urine Squamous Epithelial Cell 0-2 0 - 2 /HPF [facility] Urine Bacteria None Seen None Seen [facility] Hyaline Casts, Urine 0-2 0 - 2 /LPF [facility] 07/09/2025 3:10 PM EST 07/09/2025 4:00 PM EST us Generic External Data Provider LAB URINE ORDERAB LES Final Result [facility] [address] [place] [phone] documented in this encounter Visit Diagnoses Not on filedocumented in this encounter Additional Health Concerns Assessment Noted Time PHQ-9 Depression Total Score: 0 04/09/20 3:16 PM EDT documented as of this encounter Care Teams Farm Equipment Engineer Relationship Specialty Start Date End Date Aaliyah Roche MD [address] [place] [address] PCP - General Family Medicine 07/03/19 Deb Duncan RN [address] [place] [address] Registered Nurse Family Medicine 03/31/25 Sylvia Brumfield 03/31/25 07/09/25 Aicha CARSON 05/23/25 documented as of this encounter
--- OUTSIDE RECORDS SUMMARY | 2025-07-09 18:18 | XMS_ITS | Encounter Summary ---
Author Organization [employer] Address [address] [facility] 7t [place] [address] Care Team Providers Care Clinical Application Manager Name Role Phone Aaliyah Roche MD Primary Care Provide r Deb Duncan RN Unavailable [phone] Sylvia Brumfield Unavailable Reason for Visit * Reason Comments Med Refill Encounter Details Date Type Department Care Team (Late Contact Info) Description 03/12/2023 Refill [facility] [address] [place], [place] [phone] Dominga Enrique MD [address] [place] [address] [phone] Dyslipidemia Social History Tobacco Use Types Packs/Day [...] Description 08/11/2025 9:15 AM EST Office Visit [facility] [address] [place] [address] [phone] Aaliyah Roche MD [address] [place] [address] [phone] documented as of this encounter Visit Diagnoses Diagnosis Dyslipidemia Other and unspecified hyperlipidemia documented in this encounter Care Teams Clinical Application Manager Relationship Specialty Start Date End Date Aaliyah Roche MD [address] [place] [address] PCP - General Family Medicine 07/03/19 Deb Duncan RN [address] [place] [address] Registered Nurse Family Medicine 03/31/25 Sylvia Brumfield 03/31/25 07/09/25 Aicha CARSON 05/23/25 documented as of this encounter
--- OUTSIDE RECORDS SUMMARY | 2025-07-09 18:18 | XMS_ITS | Encounter Summary ---
Author Organization [employer] Address [address] [address] [facility] [address] [place] [address] Care Team Providers Care Conservation Assistant Name Role Phone Aaliyah Roche MD Primary Care Provide r Deb Duncan RN Unavailable [phone] Sylvia Brumfield Unavailable Reason for Visit * Reason Comments Med Refill Encounter Details Date Type Department Care Team (Late st Contact Info) Description 04/14/2025 Refill [facility] [address] [place] [address] Aaliyah Roche MD [address] [place], [place] [phone] Social History Tobacco Use Types Packs/Day Years [...] Description 08/11/2025 9:15 AM EST Office Visit [facility] [address] [place] [address] Aaliyah Roche MD [address] [place] [address] documented as of this encounter Visit Diagnoses Not on filedocumented in this encounter Additional Health Concerns Assessment Noted Time PHQ-9 Depression Total Score: 0 04/09/20 3:16 PM EDT documented as of this encounter Care Teams Conservation Assistant Relationship Specialty Start Date End Date Aaliyah Roche MD [address] [place] [address] PCP - General Family Medicine 07/03/19 Deb Duncan RN [address] [place] [phone] Registered Nurse Family Medicine 03/31/25 Sylvia Brumfield 03/31/25 07/09/25 Aicha CARSON 05/23/25 documented as of this encounter
--- OUTSIDE RECORDS SUMMARY | 2025-07-09 18:18 | XMS_ITS ---
Author Organization [employer] Address [address] [facility] 7t [place] [address] Care Team Providers Care Coal Sampler Name Role Phone Aaliyah Roche MD Primary Care Provide r Deb Duncan RN Unavailable [phone] Sylvia Brumfield Unavailable CM Complex Status:Enrolled (Active) Start date:03/31/2025 Enrollment date:04/09/2025 Enrollment reason:ADT Feed Overview ED- Pt went to [facility] ED on 03/29/25. Case Team Name Relationship Phone Deb Duncan RN(Responsible Staff) Registered Nurse [phone] Continued Care and Services Coordination
--- OUTSIDE RECORDS SUMMARY | 2025-07-09 18:18 | XMS_ITS | Clinical Summary ---
Author Organization [employer] Address [address] [place] [address] Care Team Providers Care Typecasting Machine Operator Name Role Phone Aaliyah Roche MD Primary Care Provide r Deb Duncan RN Unavailable [phone] Sylvia Brumfield Unavailable Allergies Active Allergy [...] by mouth 2 times daily. 024 Active tadalafil (Cialis) 5 MG tablet Take 1 tablet by mouth Once per day. 023 Active tamsulosin (Flomax) 0.4 MG 24 hr capsule Take 1 capsule by mouth Once per day. 025 Active Zepbound 10 MG/0.5ML solution auto-injector Inject 0.5 mL under the skin every 7 (seven) days. Active Diclofenac Sodium 1 % gelIndications: Costochondritis Apply 1 Application topically if needed each day (back pain ,costochondriti s). 50 g Active amitriptyline (Elavil) 25 MG tabletIndicatio ns:Neuropathic pain Take 1 tablet (25 mg) by mouth at bedtime. 30 tablet 1 2024 Active capsaicin (Capzasin-HP) 0.1 % creamIndication s:Neuropathic pain Apply topically 2 times daily. 60 g 1 Active prazosin (Minipress) 1 MG capsule TAKE 1 CAPSULE BY MOUTH EVERYDAY AT BEDTIME 90 capsule 1 2024 Discontinued(M ed list cleanup (will not trigger notification to Pharmacy)) Diclofenac Sodium 1 % gelIndications: Arthralgia, unspecified joint APPLY 2 GRAMS TO THE AFFECTED AREA 3 TIMES A DAY NEEDED 100 g 2 2024 Discontinued(M ed list cleanup (will not trigger notification to Pharmacy)) fluticasone (Flonase) 50 MCG/ACT nasal spray Administer [...] 1/2 tab on day 13-14 43 tablet 2024 Discontinued(M ed list cleanup (will not trigger notification to Pharmacy)) lidocaine (Lidoderm) 5 % patch Apply 1 patch topically Once per day. 025 2024 sucralfate (Carafate) 1 g tablet Take 1 g by mouth in the morning and 1 g at noon and 1 g in the evening. 025 2024 oxyCODONE (Roxicodone) 5 MG immediate release tabletIndicatio ns:Costochondri tis Take 1 tablet (5 mg) by mouth every 12 (twelve) hours if needed for severe pain for up to 5 days. 10 tablet 025 2024 Active Problems Problem Noted Date Diagnosed Date Neuropathic pain 07/09/2025 Scabies 03/05/2025 Neuropathy 03/05/2025 History of melanoma [...] now H/O malignant neoplasm of skin 06/05/2024 Right inguinal pain 10/23/2023 Right testicular [...] artery origin through the edge of the [id number] at the bilateral common iliac arteries. Unchanged [...] follow up on 06/20/25 -I called his welding machine assembler Dr Jeronimo today to confirm date but was not able to reach staff -left voice mail . Current symptom does not seem associated w cardiac nature but pt does have svere LAD diagnosis and needs f up w welding machine assembler, pt on statins and ASA -discuss w [...] PM EDT): [facility] & Plan (05/08/2023 12:47 PM EDT): [...] provider Aortic dissection distal to left subclavian ([facility] /HCC) 03/28/2023 Class 3 severe obesity with [...] meals. Check fgstk daily, glucometer sent to [facility] pharmacy Encouraged physical activity as tolerated. [...] [facility] / nuclear stress done Resolved Problems Problem Noted Date Diagnosed Date Resolved Date Uncomplicated opioid dependence ([facility]) 06/05/2024 07/09/2025 Tobacco use disorder 01/05/2009 025 Encounters Date Type Department Care Team Description 07/09/2025 2:00 PM EST Office Visit [address] [address] Aaliyah Roche MD Neuropathic pain (Primary Dx); Abnormality of thoracic aorta 07/09/2025 Orders Only GENERIC EXTERNAL DATA DEPARTMENT Provider, Generic External Data 07/09/2025 Travel 07/09/2025 Patient Outreach [address] [phone] Aaliyah Roche MD Care Coordination (W outreach sdvt) 07/03/2025 Patient Outreach [address] [address] Aaliyah Roche MD Care Management (C3CM- f/u call) 06/20/2025 Patient Outreach [address] [address] Aaliyah Roche MD Care Management (C3CM- f/u call) 06/18/2025 10:15 AM EDT Office Visit [address] [address] Aaliyah Orozco MD Costochondritis (Primary Dx); Type 2 diabetes mellitus with hyperglycemia, without long-term current use of insulin (HCC); Chest discomfort 06/18/2025 Travel 06/17/[address] [address] Aaliyah Orozco MD chart prep 06/10/2025 Patient Outreach [address] [address] Aaliyah Roche MD Care Management (C3CM- f/u call) 06/09/2025 11:20 AM EDT Office Visit [facility] [address] [place] [phone] Bhavana Lee MD Exertional chest pain (Primary Dx); Other chest pain 06/09/[address] [address] Maida Bean, [place] Nurse Triage 06/09/2025 Travel 06/06/[address] [address] Aaliyah Roche MD 06/03/2025 Patient Outreach [address] [address] Aaliyah Roche MD Pre-visit Planning (SDOH screening completed on 04/09/2025) 05/30/[address] [address] Aaliyah Roche MD Nurse Triage 05/30/2025 Patient Outreach [address] [address] Aaliyah Roche MD Care Coordination (SDOH f/u) 05/29/2025 Patient Outreach [address] [address] Aaliyah Roche MD Care Management (C3- f/u call #2 lvm) 05/27/2025 Patient Outreach [address] [address] Aaliyah Roche MD 05/23/2025 Patient Outreach [facility] [address] [place] [phone] Aaliyah Roche MD Transition Of Care (Tcm) (HDF uscheduled) 05/22/2025 Telephone [facility] [address] [place] [phone] Aaliyah Roche MD FYI 05/16/2025 Patient Outreach [facility] [address] [place] [phone] Aaliyah Roche MD Care Management (C3CM- f/u call) 05/09/2025 Refill [facility] [address] [place] [phone] Aaliyah Roche MD 05/07/2025 Patient Outreach [address] [address] Aaliyah Roche MD Care Coordination (SDOH f/u) 05/07/2025 Patient Outreach [facility] [address] [place] [phone] Aaliyah Roche MD Care Management (C3CM- f/u call) 04/23/2025 Patient Outreach [address] [address] Aaliyah Roche MD Care Coordination (SDOH f/u) 04/23/2025 Patient Outreach [facility] [address] [place] [phone] Aaliyah Roche MD Care Management (C3CM- f/u call) 04/21/2025 9:00 AM EDT Office Visit [facility] [address] [place] [phone] Yung Dao MD Rash (Primary Dx) 04/21/2025 Refill [facility] [address] [place] [phone] Jodi Chen RN Primary hypertension 04/21/2025 Travel 04/15/2025 Refill [facility] [address] [place] [phone] Aaliyah Roche MD 04/14/2025 Refill [facility] [address] [place] [phone] Aaliyah Roche MD 04/10/2025 Refill [facility] [address] [place] [phone] Aaliyah Roche MD 04/10/2025 Plan of Care Documentation [facility] [address] [place] [phone] 04/09/2025 Patient Outreach [address] [address] Aaliyah Roche MD Care Management ([facility]- initial assessment/ enrollment) 04/09/2025 Telephone [facility] [address] [place] [phone] Aaliyah Roche MD 04/09/2025 Patient Outreach [address] [address] Aaliyah Roche MD Care Coordination (SDWA) 04/08/2025 Patient Outreach [address] [address] Aaliyah Roche MD Care Coordination (CM/CHW outreach) from Last 3 Months Immunizations Immunization Administration [...] Mass Index 36.39 07/09/2025 2:13 PM EST Plan of Treatment Upcoming Encounters Date Type Department Care Team (Late st Contact Info) Description 08/11/2025 9:15 AM EST Office Visit [facility] [address] [place] [address] Aaliyah Roche MD [address] [place] [address] Health Maintenance Due Date Last Done Comments CT Colonography 1965 Colonoscopy 1965 FIT 1965 HIV Screening 1965 Sigmoidoscopy 1965 Derm Melanoma Skin Check 1965 Diabetes: Foot Exam 1975 Hepatitis C Screening 1983 Hepatitis A Vaccines (1 of 2 - Risk 2-dose series) 1984 RSV Patients and Patients Aged 60 years or older (1 - Risk 50-74 years 1-dose series) 2015 Zoster Vaccines (1 of 2) 2015 DTaP/Tdap/Td Vaccines (2 - Td or Tdap) 05/21/2023 05/21/2013 FOBT 06/08/2024 06/08/2023 Hepatitis B Vaccines (1 of 3 - Risk 3-dose series) 2025 COVID-19 Vaccine ( season) 2025 06/05/2024, 09/07/2022, 09/03/2021, Additional history exists Influenza Vaccine (#1) 2025 , 05/30/2023, 09/07/2022, [...] 06/08/2026 FIT DNA/Cologuard 06/08/2026 06/08/2023 Tobacco Screening 07/09/2026 07/09/2025 Pneumococcal Vaccine: 50+ Years Completed 01/23/2024, 09/20/2019, 05/01/2015 HIB Vaccines Aged Out No longer eligi [...] URINALYSIS, COMPLETE Routine 07/09/2025 3:10 PM EST AMB REFERRAL TO ORTHOPAEDIC SURGERY Routine 06/24/2025 Right hip pain POCT GLYCATED HEMOGLOBIN, TOTAL Routine 06/18/2025 11:01 AM EDT Type 2 diabetes mellitus with hyperglycemia, without long-term current use of insulin (HCC) POCT GLUCOSE Routine 06/18/2025 10:48 AM EDT Type 2 diabetes mellitus with hyperglycemia, without long-term current use of insulin (HCC) ECG 12-LEAD Routine 06/09/2025 12:14 PM EDT Exertional chest pain CREATININE, RANDOM URINE Routine 03/05/2025 10:18 AM EDT LIPID PANEL, STANDARD Routine 09/13/2024 10:16 AM EST Class 3 severe obesity due to excess calories with serious comorbidity and body mass index (BMI) of 40.0 to 44.9 in adult ([facility]) LAB COLOGUARD COLON CANCER SCREEN Routine 06/08/2023 8:20 AM EDT Colon cancer screening from Last 3 Months or Most Recently Relevant to Health Maintenance Results * (ABNORMAL) Urinalysis Complete (07/09/2025 3:10 PM EST) Color Urine Yellow [facility] Appearance Urine Clear [facility] PH 5.5 5.0 - 9.0 [facility] Glucose Urine UA Negative Negative mg/dL [facility] Urine Blood Large (3+)(A) Negative [facility] Specific [place] - Urine 1.025 1.005 - 1.025 [facility] Urine Protein 30 (1+)(A) Neg-Trace mg/dL [facility] Urine Ketones Negative Negative mg/dL [facility] Nitrite Urine Negative Negative [facility] Leukocyte Esterase Urine Negative Negative [facility] RBC Urine >20(A) 0 - 2 /HPF [facility] Urine WBC 0-5 0 - 5 /HPF [facility] Urine Squamous Epithelial Cell 0-2 0 - 2 /HPF [facility] Urine Bacteria None Seen None Seen [facility] Hyaline Casts, Urine 0-2 0 - 2 /LPF [facility] 07/09/2025 3:10 PM EST 07/09/2025 4:00 PM EST us Generic External Data Provider LAB URINE ORDERAB LES Final Result [facility] [address] [place] [address] [phone] * Referral to Orthopaedic Surgery (06/24/2025) Result [facility] David Pizano MD OUTPATIENT REFERRAL ORDERABLES F inal Result * (ABNORMAL) POCT Hgb A1c (06/18/2025 11:01 AM EDT) Hemoglobin A1C 5.8(A) 4.0 - 5.7 % QC Media Lot # [id number] Lot# Expiration Date Blood 06/18/2025 11:0 1 AM EDT Aaliyah Daniel MD POINT OF CARE AYESHA T ENTER/EDIT ORDERABLES Final Result * POCT Glucose (06/18/2025 10:48 AM EDT) Glucose Blood, POC 103 60 - 200 mg/dL QC Media Lot # [id number] Lot# Expiration Date [id number] Blood Capillary blood specimen / Unknown 06/18/2025 10:48 AM EDT Aaliyah Daniel MD POINT OF CARE AYESHA T ENTER/EDIT ORDERABLES Final Result * ECG 12 lead (06/09/2025 12:14 PM EDT) Narrative Bhavana Lee MD - 06/09/2025 12:14 PM EDT NSR@60bpm, normal axis. RBBB pattern with unspecific repolarization abn on ant leads Bhavana Lee MD ECG ORDERABLES Final Re sult * Creatinine, Random Urine (03/05/2025 10:18 AM EDT) Creatinine, Urine 296.31 mg/dL [facility] 03/05/2025 10:1 8 AM EDT 03/05/2025 12:04 PM EDT us Generic External Data Provider LAB URINE ORDERAB LES Final Result [facility] [address] [place] [address] [phone] * (ABNORMAL) Lipid Panel, Standard (09/13/2024 10:16 AM EST) Triglycerides 209(H) <150 mg/dL [facility] Comment:Desirable Triglyceri de: less than 150 mg/dLBorderline High Triglyceride 150-199 mg/dLHigh Triglyceride: 200-499 mg/dLVery High Triglyceride: greater than or equal to 5OO mg/dL Cholesterol 212(H) <200 mg/dL [facility] Comment:Desirable Cholestero l: less than 200 mg/dLBorderline High Cholesterol: 200-239 mg/dLHigh Cholesterol: greater than 239 mg/dL LDL Cholesterol Calculated 140(H) <100 mg/dL [facility] Comment:Desirable LDL: less than 100 mg/dLNear Optimal/Above Optimal LDL: 110- 129 mg/dLBorderline High LDL: 130-159 mg/dLHigh LDL: 160-189 mg/dLVery High LDL: greater than or equal to 190 mg/dL HDL Cholesterol 31(L) >40 mg/dL [facility] Comment:Desirable HDL: great er than 40 mg/dL Note: This HDL assay may give artificially low results in patients with liver disease. Blood Venous blood specimen / Unknown 09/13/2024 10:16 AM EST 09/13/2024 11:30 AM EST us Aaliyah Hernandez MD LAB BLOOD ORDERABLES Final Result [facility] [address] [place] [address] [phone] * Cologuard?? colon cancer screening (06/08/2023 8:20 AM EDT) Cologuard Result Negative Negative 06/15/20 4:38 AM EDT [facility] (CLIA #:[id number]) Comment: NEGATIVE TEST RESULT. A negative Cologuard [...] (Terrance Ellison al, N Engl J Med 2014;370(14):9020-8160) The normal value (reference range) for this assay is negative. COLOGUARD RE-SCREENING RECOMMENDATION: Periodic colorectal cancer screening is an important part of preventive healthcare for asymptomatic individuals at average risk for colorectal cancer. Following a negative Cologuard result, the [place] [employer] Society and U.S. Multi-Society Task Force screening guidelines recommend a Cologuard re-screening interval of 3 years. References: [place] [employer] Guideline for Colorectal Cancer Screening: https://www.cancer.org/cancer/omyfr-bqokdr-logtvl/hmwuzfoqr-lccxqtpaw-iyaolmq/ac s-rec ommendations.html.; Ming DK, Branden FOLEY, Doc MoraK, Colorectal Cancer Screening: Recommendations for Physicians and Patients from the U.S. Multi-Society Task Force on Colorectal Cancer Screening , Am J Gastroenterology 2017; 112:9637-5385. TEST DESCRIPTION: Composite algorithmic analysis of stool [...] (Terrance Ellison al, N Engl J Med 2014;370(14):8085-4644.) Cologuard may produce a false negative or false positive result (no colorectal cancer or precancerous polyp present at colonoscopy follow up). A negative Cologuard test result does not guarantee the absence of CRC or advanced adenoma (pre-cancer). The current Cologuard screening interval is every 3 years. ([place] [employer] Society and U.S. Multi-Society Task Force). Cologuard performance data in a 10,000 patient pivotal study using colonoscopy as the reference method can be accessed at the following location: www.[employer]/results. Additional description of the Cologuard test process, warnings and precautions can be found at www.[employer].com. Stool specimen (specimen) 06/08/2023 8:20 AM EDT 06/09/2023 3:33 PM EDT Aaliyah Hernandez MD LAB MOLECULAR DIAGNOS TICS ORDERABLES Final Result [facility] (CLIA #:[id number]) [place] [address], from Last 3 Months or Most Recently Relevant to Health Maintenance Insurance [facility] C3 Care Teams Typecasting Machine Operator Relationship Specialty Start Date End Date Aaliyah Roche MD [address] [place] [phone] PCP - General Family Medicine 07/03/19 Deb Duncan RN [address] [place] [phone] Registered Nurse Family Medicine 03/31/25 Sylvia Brumfield 03/31/25 07/09/25 Aicha A 05/23/25
--- OUTSIDE RECORDS SUMMARY | 2025-07-09 18:18 | XMS_ITS | Encounter Summary ---
Author Organization [employer] Address [address] [place] [address] Care Team Providers Care Road Passenger Firer Name Role Phone Aaliyah Roche MD Primary Care Provide r Deb Duncan RN Unavailable [phone] Sylvia Brumfield Unavailable Reason for Visit * Reason Onset Date Comments Med Change Request Durable Medical Equipment 04/15/2025 DME Or pako: Blood Pressure Monitor. Encounter Details Date Type Department Care Team (Late st Contact Info) Description 04/15/2025 Refill [facility] [address] [place] [address] Aaliyah Roche MD [address] [place], [place] [phone] Social History Tobacco Use Types Packs/Day Years [...] was generated and sent via FAX to [facility]. Confirmation was uploaded to Media. documented in this encounter Plan of Treatment Upcoming Encounters Date Type Department Care Team (Late st Contact Info) Description 08/11/2025 9:15 AM EST Office Visit [facility] [address] [place] [address] Aaliyah Roche MD [address] [place] [address] documented as of this encounter Visit Diagnoses Not on filedocumented in this encounter Additional Health Concerns Assessment Noted Time PHQ-9 Depression Total Score: 0 04/09/20 25 3:16 PM EDT documented as of this encounter Care Teams Road Passenger Firer Relationship Specialty Start Date End Date Aaliyah Roche MD [address] [place] [address] PCP - General Family Medicine 07/03/19 Deb Duncan RN [address] [place] [phone] Registered Nurse Family Medicine 03/31/25 Sylvia Brumfield 03/31/25 07/09/25 Aicha CARSON 05/23/25 documented as of this encounter
[2025-07-09 18:39] LABS: Thyroid Stimulating Hormone 0.97 uIU/mL (0.32-4.0)
[2025-07-09 18:47] LABS: Vitamin B12 379 pg/mL (200-900)
== END 2025-07-09 14:57 | disposition home or self-care (01) ==
LOC: HO.HHCL 14:56
PROVIDERS: Internal Medicine Hypertension Specialist; PCP Internal Medicine; Visit Provider Internal Medicine
DX: Z11.3 Encounter for screening for infections with a predominantly sexual mode of transmission (principal); R80.9 Proteinuria, unspecified; R31.29 Other microscopic hematuria
CPT/HCPCS: 36415; 81001; 82607; 83921; 84443; 86592

== ENCOUNTER 2025-07-21 08:48 | Outpatient (REF) | payer MEDICAID, SELFPAY ==
--- OUTSIDE RECORDS SUMMARY | 2025-07-16 10:30 | XMS_ITS | Encounter Summary ---
Author Organization [facility] Address [address] [place] [address] Care Team Providers Care Distance Learning Program Coordinator Name Role Phone Aaliyah Roche MD Primary Care Provide r Reason for Visit * Reason Comments DM Foot Care * Consultation (Routine) - Authorized Specialty Diagnoses / Procedures Referred By Contact Referred To Contact Podiatry / Orthopaedic Surgery Diagnoses Type 2 diabetes mellitus with hyperglycemia ([facility] V24, [facility] V28) Aaliyah Roche MD [address] [address] Phone: tel:[phone] fax:[phone] Venkata Mejia DPM [address] [address] Phone: tel: fax: Referral ID Status Reason Start Date Expiration Date Visits Requested Visits Authorized [id number] Authorized Specialty Services Required 11/14/2024 11/14/2025 6 6 Encounter Details Date Type Department Care Team ([facility] Contact Info) Description 07/16/2025 10:30 AM EST Office Visit Orthopedic Surgery - Trade [address] [address] Venkata Mejia DPM [address] [address] Acquired hallux valgus of right foot (Primary Dx); Follow-up exam; Tendinitis of right ankle Social History Tobacco Use Types Packs/Day Years [...] as of this encounter Progress Notes * Venkata Mejia, DPM - 07/16/2025 10:30 AM EST Brendon Villalobos is a 60 y.o. year old male presents complaining of pain discomfort of his right great toe states throbbing achy pain discomfort has been by for prolonged period time does note his history of rheumatoid arthritis states the pain discomfort is chronic aching throbbing does not he has a bunion deformity he states it is painful to him that he like to know how can be treated pain is a 5 out of 10 on a visual analog scale report previous injection is minimally improving does not get x-rays today's appointment does have plans for total hip replacement on 09/04/2025 ROS: GENERAL: Pt denies nausea, fever, vomiting, chills, or shortness of breath. Pt in NAD. CARDIOLOGY: pt denies chest pain, palpitations LUNGS: pt denies shortness of breath MUSCULOSKELETAL: See HPI, otherwise no joint pain or swelling, back pain, or muscle pain. 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 Hyperlipidemia Multiple lipomas Obstructive sleep apnea Pure hypercholesterolemia Radiculitis, lumbosacral Tobacco use disorder Class 2 severe obesity due to excess calories with serious comorbidity and body mass index (BMI) of36.0 to 36.9 in adult SOCIAL HISTORY: Social History Tobacco Use Smoking status: Former Current packs/day: 0.00 Average packs/day: 0.5 packs/day for 38.2 years (19.1 ttl pk-yrs) Types: Cigarettes Start date: 1977 Quit date: 06/28/2015 Years since quittin.0 Smokeless tobacco: Never Substance Use Topics Alcohol use: Yes ACTIVE MEDICATIONS: Outpatient Medications Marked as Taking for the 07/16/25 encounter (Office Visit) with Venkata Mejia DPM Medication Sig Dispense Refill alfuzosin (UROXATRAL) 10 mg 24 hr tablet TAKE 1 TABLET BY MOUTH EVERY DAY ADMINISTER AFTER THE SAMEMEAL EACH DAY amLODIPine (NORVASC) 10 mg tablet Take 1 tablet (10 mg total) by mouth 1 (one) time each day in themorning. AMLODIPINE-ATORVASTATIN ORAL Take by mouth. azelastine (ASTELIN) 137 mcg (0.1 %) nasal spray SPRAY 2 SPRAYS INTO EACH NOSTRIL TWICE A DAY FOR 30 DAYS budesonide-formoteroL (SYMBICORT) 160-4.5 mcg/actuation inhaler PLEASE SEE ATTACHED FOR DETAILED DIRECTIONS CARVEDILOL ORAL Take by mouth. diclofenac sodium 3 % gel Apply 1 Application topically 2 (two) times a day. APPLY TO AFFECTED AREA ibuprofen (ADVIL,MOTRIN) 800 mg tablet take 1 tablet (800 mg) by mouth every 8 hours as needed for pain ipratropium (ATROVENT) 21 mcg (0.03 %) nasal spray Administer 2 sprays into each nostril 3 times daily. lidocaine (LIDODERM) 5 % patch APPLY 1 PATCH TOPICALLY DAILY, REMOVE PATCHES AFTER 12 HOURS LISINOPRIL ORAL Take by mouth. meloxicam (MOBIC) 15 mg tablet Take 1 tablet (15 mg total) by mouth 1 (one) time each day if needed. metFORMIN XR (GLUCOPHAGE-XR) 500 mg 24 hr tablet Take 1 tablet (500 mg total) by mouth 1 (one) timeeach day with dinner. naloxone (NARCAN) 4 mg/0.1 mL nasal spray PLEASE SEE ATTACHED FOR DETAILED DIRECTIONS oxyCODONE (ROXICODONE) 5 mg immediate release tablet TAKE 1 TABLET BY MOUTH EVERY 6 HOURS NEEDEDFOR SEVERE PAIN FOR 5 DAYS permethrin (ELIMITE) 5 % cream APPLY TO SKIN FROM HAIRLINE TO TOES AND WASH OFF 8-10 HOURS LATER. pravastatin (PRAVACHOL) 20 mg tablet TAKE 1 TABLET (20 MG) BY MOUTH ONCE PER DAY. predniSONE (DELTASONE) 10 mg tablet Take 1 tablet (10 mg total) by mouth 1 (one) time each day. sucralfate (CARAFATE) 100 mg/mL suspension PLEASE SEE ATTACHED FOR DETAILED DIRECTIONS tadalafiL (CIALIS) 5 mg tablet Take 1 tablet (5 mg total) by mouth 1 (one) time each day. traMADoL (ULTRAM) 50 mg tablet TAKE 1 TABLET BY MOUTH TWICE A DAY NEEDED FOR PAIN FOR 15 DAYS trazodone HCl (TRAZODONE ORAL) Take by mouth. Ventolin HFA 90 mcg/actuation inhaler TAKE 2 PUFFS BY MOUTH EVERY 6 HOURS FOR 30 DAYS USE WITH CHAMBER ALLERGIES: Allergies Allergen Reactions Duloxetine Other reaction(s): Nightmare Baclofen Rash Cyclobenzaprine Rash PHYSICAL EXAM: Visit Vitals Smoking Status Former PODIATRIC EXAMINATION: GENERAL: Patient appears well nourished, with NAD. VASCULAR: Dorsalis pedis pulses are 2/4 bilaterally and Posterior tibial pulses are 2/4 bilaterally. Capillary filling time within normal limits the digits. No pallor on elevation or rubor on dependency. No varicosities. Denies rest pain or claudication pain. NEUROLOGICAL: Sharp/dull sensation intact, protective sensation intact 10/10 with Ipswitch touch test bilaterally, vibratory sensation intact to the tibial tuberosity. ORTHOPEDIC: Good muscle strength 5/5 of all flexors and extensors. Dorsi flexion of ankle ,10 degrees, plantar flexion WNL. No muscle atrophy. DERMATOLOGICAL:.No masses or skin lesions noted. Normal skin temperature, normal skin turgor. BIOMECHANICS: Ankle ROM WNL, STJ ROM wnl, MTJ ROM wnl, 1st MPJ ROM track bound bunion forming rightgreat toe redness swelling irritation with range of motion without acute crepitation. Inflammation and irritation of peroneal longus and brevis tendon right ankle IMAGING: Moderate to severe bunion deformity right great toe IMPRESSION: 1. Acquired hallux valgus of right foot 2. Follow-up exam PLAN: Pt was seen and examined, history reviewed. Treatment options were discussed and reviewed including stretching exercises demonstrated for patient anti-inflammatory medications steroid injections orthotics and insoles Recommendations given for prefabricated insoles Referral offered physical therapy patient declined Prescription given for anti-inflammatory medication Artis bandage fitted and dispensed right lower extremity tomorrow times support of his peroneal tendon stretching exercises recommended and reviewed recommend referral to physical therapy patient declined During today???s visit we discussed at great length the etiology, prognosis, and treatment options for the patient???s condition. Risks and benefits of operative and non operative treatment options were discussed. Treatment options for bunion correction were discussed, non-operative treatment would involve tapping, strapping, adjustments in shoe gear, orthotics insoles, rest, bracing and edema control. There is potential for the deformities to stabilize without surgery yet there may still be a need for delayed surgery and distructive procedures. There is potential for non-union with surgery and non-operative care would avoid incision problems and anesthesia risks. Surgery has added risks including but not limited to infection, incision pain, neuritis or numbness nerve trauma (damage transection of nerve) re-occurrence of deformity weakening of structure or tendon, scar tissue contracture, worsening of deformity and loss of limb or life from DVT and . Bunion healing was discussed in relation tooperative treatment. Recovery and post operative immobilization was discussed based on the various treatment options. Weight bearing status: NWB x 2 weeks followed by progressive WB x 10 weeks in a below the knee boot. Work&Activity restrictions: Impact of undergoing surgery to work and daily activity was discussed today Pain management: Postoperative pain regiment were discussed in great detail with the patient. The patient was also encouraged to aggressively elevate and ice postoperatively to help with swelling andpain control. The patient was in agreement with this plan. The patient will be prescribed IbuprofenTylenol Oxycodone for postoperative pain management. VTE Risk assessment: Risk of DVT/ PE were discussed in relation to immobilization, inactivity, injury, surgery, medication and personal risk factors. Signs and symptoms of a blood clot were discussedincluding action plan if the patient experiences these signs or symptoms. Methods of prevention and risk reduction were explained. Mechanical prophylaxis including ROM and mobilization is encouraged as much as possible. The patient???s risk for deep vein thrombosis was also assessed today. In regards to major risk factors they: Do not have personal history of DVT Do not have known active cancer Do not have known clotting disorder Do not have family history of DVT Pending foot surgery and current level of immobilization are risk factors. Measure taken to decrease their risk of deep vein thrombosis will consist of detailed education, as well as lower extremity range of motion. Chemical prophylaxis is not recommended based on patients history, procedure and postoperative plan. Planned procedure(s): Bunion right foot [facility] surgery WB status: NWB x 2 weeks followed by progressive WB x 10 weeks in a below the knee boot. Pain medication: Ibuprofen Tylenol Oxycodone Patient like to call to make follow-up appointment after his hip surgery Venkata Mejia DPM documented in this encounter Plan of Treatment Upcoming Encounters Date Type Department Care Team (Late st Contact Info) Description 10/10/2025 8:30 AM EST Nutrition Bariatric Surgery - Trade 175 [facility] [address] [place] [id number] Katty Stewart, RD 175 [facility] [address] [place] [address] 12/15/2025 1:00 PM EDT Office Visit Orthopedic Surgery - Trade 250 175 [facility] [address] [place] [address] Venkata Mejia DPM [address] [address] documented as of this encounter Results * XR Foot 3+ Views Right (07/16/2025 10:40 AM EST) Anatomical Region Laterality Modality Lower Extremities, Foot Right Computed Radiography Narrative 07/16/2025 11:09 AM EST Right foot 3 views No fracture. No radiopaque foreign joint spaces normal mild midfoot arthritis Moderate bunion deformity right great toe without acute osteoarthritic changes the metatarsophalangeal joint Foot position Pes planus with Talus navicular uncovering decreased calcaneal inclination anterior displaced symes line talus navicular joint to calcaneal cuboid joint us Venkata Mejia DPM IMG XR PROCEDURES Final R esult documented in this encounter Visit Diagnoses Diagnosis Acquired hallux valgus of right foot- Primary Follow-up exam Unspecified follow-up examination Tendinitis of right ankle documented in this encounter Care Teams Distance Learning Program Coordinator Relationship Specialty Start Date End Date Aaliyah Roche MD [address] [address] PCP - General Internal Medicine 08/24/21 documented as of this encounter
--- OUTSIDE RECORDS SUMMARY | 2025-07-21 09:19 | XMS_ITS | Clinical Summary ---
Author Organization [employer] Address [address] [place] [address] Care Team Providers Care School Resource Officer Name Role Phone Aaliyah Roche MD [...] taking.Reported on 04/09/2025 Symbicort 160-4.5 MCG/ACT inhaler 05/24/20 23 Active metFORMIN XR (Glucophage-XR) 500 [...] DAY FOR 30 DAYS 07/02/20 24 Active pravastatin (Pravachol) 20 MG tabletIndication s:Essential hypertension Take 1 tablet (20 mg) by mouth Once per day. 30 tablet 11 11/14/19 25 026 Active albuterol (2.5 MG/3ML) 0.083% nebulizer solution [...] 02/12/20 25 Active permethrin (Elimite) 5 % creamIndications :Scabies apply to skin from hairline to toes and wash off 8-10 hours later 60 g 1 03/05/20 25 Active Additional Information Patient not taking.Reported on 04/09/2025 Alpha-Lipoic Acid 600 MG capsuleIndicatio ns:Neuropathy Take 1 capsule (600 mg) by mouth Once per day. 90 capsule 03/05/20 25 Active Additional Information Patient not taking.Reported on 06/18/2025 clotrimazole (Lotrimin) 1 % cream Apply topically 2 times daily. 60 g 1 04/21/20 25 Active Blood Pressure kitIndications:P rimary hypertension Please use to check BP as directed 1 kit 04/21/20 25 Active amLODIPine (Norvasc) 10 MG tablet TAKE 1 TABLET BY MOUTH EVERY DAY IN THE MORNING 90 tablet 1 05/09/20 25 Active carvedilol (Coreg) 25 MG tablet TAKE 2 TABLETS BY MOUTH TWICE A DAY WITH FOOD 360 tablet 1 06/06/20 25 Active acetaminophen (Tylenol 8 Hour) 650 MG ER tablet Take 2 tablets by mouth every 8 (eight) hours if needed for mild pain. Active aspirin 81 MG EC tablet Take 1 tablet by mouth Once per day. 08/31/19 22 Active lansoprazole (Prevacid) [address] capsule Take 1 capsule by mouth 2 times daily. 08/20/20 24 Active tadalafil (Cialis) 5 MG tablet Take 1 tablet by mouth Once per day. 07/13/20 23 Active tamsulosin (Flomax) 0.4 MG 24 hr capsule Take 1 capsule by mouth Once per day. 05/22/20 25 Active Zepbound 10 MG/0.5ML solution auto-injector Inject 0.5 mL under the skin every 7 (seven) days. 05/05/20 25 Active Diclofenac Sodium 1 % gelIndications:C ostochondritis Apply 1 Application topically if needed each day (back pain ,costochondritis ). 50 g 06/18/20 Active amitriptyline (Elavil) 25 MG tabletIndication s:Neuropathic pain Take 1 tablet (25 mg) by mouth at bedtime. 30 tablet 1 07/09/20 25 025 Active capsaicin (Capzasin-HP) 0.1 % creamIndications :Neuropathic pain Apply topically 2 times daily. 60 g 1 07/09/20 Active lidocaine (Lidoderm) 5 % patch Apply 1 patch topically Once per day. 05/22/20 025 sucralfate (Carafate) 1 g tablet Take 1 g by mouth in the morning and 1 g at noon and 1 g in the evening. 06/11/20 025 oxyCODONE (Roxicodone) 5 MG immediate release tabletIndication s:Costochondriti s Take 1 tablet (5 mg) by mouth every 12 (twelve) hours if needed for severe pain for up to 5 days. 10 tablet 06/18/20 025 Active Problems Problem Noted Date Diagnosed [...] artery origin through the edge of the [id number]-tjvx at the bilateral common iliac arteries. Unchanged [...] follow up on 06/20/25 -I called his truck driver rubbish collector Dr Jeronimo today to confirm date but was not able to reach staff -left voice mail . Current symptom does not seem associated w cardiac nature but pt does have svere LAD diagnosis and needs f up w truck driver rubbish collector, pt on statins and ASA -discuss w [...] meals. Check fgstk daily, glucometer sent to [facility] pharmacy Encouraged physical activity as tolerated. [...] Neg cardiac w/u and cta HH 04/2015 [facility] / nuclear stress done Resolved Problems Problem Noted Date Diagnosed Date Resolved Date Uncomplicated opioid dependence ([facility]) 06/05/2024 07/09/2025 Tobacco use disorder 01/05/2009 025 Encounters Date Type Department Care Team Description 07/14/2025 Patient Outreach [address] [address] Aaliyah Roche MD Care Management ([facility]- f/u call) 07/10/2025 Patient Outreach [address] [address] Aaliyah Roche MD Care Management ([facility]- f/u call) 07/09/2025 2:00 PM EST Office Visit [address] [address] Aaliyah Roche MD Neuropathic pain (Primary Dx); Abnormality of thoracic aorta 07/09/2025 Orders Only GENERIC EXTERNAL DATA DEPARTMENT Provider, Generic External Data 07/09/2025 Travel 07/09/2025 Patient Outreach [facility] [address] [place] [phone] Aaliyah Roche MD Care Coordination (W outreach [facility]) 07/03/2025 Patient Outreach [address] [address] Aaliyah Roche MD Care Management ([facility]- f/u call) 06/20/2025 Patient Outreach [address] [address] Aaliyah Roche MD Care Management ([facility]- f/u call) 06/18/2025 10:15 AM EDT Office Visit [address] [address] Aaliyah Orozco MD Costochondritis (Primary Dx); Type 2 diabetes mellitus with hyperglycemia, without long-term current use of insulin (HCC); Chest discomfort 06/18/2025 Travel 06/17/[address] [address] Aaliyah Orozco MD chart prep 06/10/2025 Patient Outreach [address] [address] Aaliyah Roche MD Care Management ([facility]- f/u call) 06/09/2025 11:20 AM EDT Office Visit [facility] [address] [place] [phone] Bhavana Lee MD Exertional chest pain (Primary Dx); Other chest pain 06/09/[address] [address] Maida Bean, RN Nurse Triage 06/09/2025 Travel 06/06/[address] [address] Aaliyah Roche MD 06/03/2025 Patient Outreach [address] [address] Aaliyah Roche MD Pre-visit Planning ([facility] screening completed on 04/09/2025) 05/30/[address] [address] Aaliyah Roche MD Nurse Triage 05/30/2025 Patient Outreach [address] [address] Aaliyah Roche MD Care Coordination ([facility] f/u) 05/29/2025 Patient Outreach [address] [address] Aaliyah Roche MD Care Management ([facility]- f/u call #2 lvm) 05/27/2025 Patient Outreach [address] [address] Aaliyah Roche MD 05/23/2025 Patient Outreach [address] [address] Aaliyah Roche MD Transition Of Care (Tcm) (HDF uscheduled) 05/22/[address] [address] Aaliyah Roche MD FYI 05/16/2025 Patient Outreach [address] [address] Aaliyah Roche MD Care Management ([facility]- f/u call) 05/09/2025 Refill [facility] [address] [place] [phone] Aaliyah Roche MD 05/07/2025 Patient Outreach [address] [address] Aaliyah Roche MD Care Coordination ([facility] f/u) 05/07/2025 Patient Outreach [address] [address] Aaliyah Roche MD Care Management ([facility]- f/u call) 04/23/2025 Patient Outreach [address] [address] Aaliyah Roche MD Care Coordination ([facility] f/u) 04/23/2025 Patient Outreach [facility] [address] [place] [address] Aaliyah Roche MD Care Management ([facility]- f/u call) 04/21/2025 9:00 AM EDT Office Visit [facility] [address] [place] [address] Yung Dao MD Rash (Primary Dx) 04/21/2025 Refill [facility] [address] [place] [address] Jodi Chen RN Primary hypertension 04/21/2025 Travel from Last 3 Months Immunizations Immunization [...] Description 08/11/2025 9:15 AM EST Office Visit [facility] [address] [place] [address] Aaliyah Roche MD [address] [place] [address] Health Maintenance Due Date Last Done Comments [...] Procedure Name Priority Date/Time Associated Diagnosis Comments VITAMIN B12 Routine 07/09/2025 3:10 PM EST TSH Routine 07/09/2025 3:10 PM EST URINALYSIS, COMPLETE Routine 07/09/2025 3:10 PM EST RPR (MONITOR) W/REFL TITER Routine 07/09/2025 3:10 PM EST Neuropathic pain METHYLMALONIC ACID Routine 07/09/2025 3: 10 PM EST Neuropathic pain AMB REFERRAL TO ORTHOPAEDIC SURGERY Routine 06/24/2025 [...] of 40.0 to 44.9 in adult (CMS/HCC) LAB COLOGUARD COLON CANCER SCREEN Routine 06/08/2023 8:20 AM EDT Colon cancer screening from Last 3 Months or Most Recently Relevant to Health Maintenance Results * Methylmalonic Acid (07/09/2025 3:10 PM EST) Methylmalonic Acid 73 69 - 390 nmol/L [facility] Comment: Serum methylmalonic acid (MMA) levels are used todiagnose and monitor several rare inborn errors ofmetabolism, including methylmalonic aciduria. Theenzymatic conversion of MMA to succinic acid requiresvitamin B12 (adenosyl-cobalamin) as a cofactor. SerumMMA levels are also used for assessing functionalvitamin B12 deficiency. Vitamin B12 is essential forfetal neurodevelopment, particularly early inpregnancy. Undiagnosed maternal vitamin B12 deficiencymay be associated with adverse / outcomes,such as neural tube defects and intrauterine growthrestriction.[employer] utilized Multi-Modal Decomposition(MMD) analysis to establish first and second trimester-specific MMA reference intervals in , as givenbelow:MMA, First trimester (<13 wks gestation): 58-167 nmol/LMMA, Second trimester (13-23 wks gestation):63-241 nmol/LThis test was developed and its analytical performancecharacteristics have been determined by [employer]. It has not been cleared or approved by theFDA. This assay has been validated pursuant to the CLIAregulations and is used for clinical purposes.THIS TEST WAS PERFORMED AT:[employer] [facility] [employer] [place] [address]NEHEGZPCHRISTINE CUEVA MD,PHD Blood Venous blood specimen / Unknown 07/09/2025 3:10 PM EST 07/09/2025 5:55 PM EST us Aaliyah Hernandez MD LAB BLOOD ORDERABLES Final Result Performing Organization Address City/[facility]/ZIP Co de Phone Number [facility] [address] [place] [address] [phone] * RPR (Monitor) with Reflex to??Titer (07/09/2025 3:10 PM EST) RPR (Monitor) w/Refl Titer NON-REACTI VE NON-REACT TRE [facility] Comment:THIS TEST WAS PERFOR MED AT:[facility] [place] [phone] FERRARA MD Rapid Plasma Reagin Ab Titer TNP [facility] Blood Venous blood specimen / Unknown 07/09/2025 3:10 PM EST 07/09/2025 3:59 PM EST us Aaliyah Hernandez MD LAB BLOOD ORDERABLES Final Result Performing Organization Address City/[facility] Co de Phone Number [facility] [address] [place] [phone] * (ABNORMAL) Urinalysis Complete (07/09/2025 3:10 PM EST) Color Urine Yellow [facility] Appearance Urine Clear [facility] PH 5.5 5.0 - 9.0 [facility] Glucose Urine UA Negative Negative mg/dL [facility] Urine Blood Large (3+)(A) Negative [facility] Specific [place] - Urine 1.025 1.005 - 1.025 [facility] Urine Protein 30 (1+)(A) Neg-Trace mg/dL [facility] Urine Ketones Negative Negative mg/dL [facility] Nitrite Urine Negative Negative [facility] Leukocyte Esterase Urine Negative Negative [facility] RBC Urine >20(A) 0 - 2 /HPF [facility] Urine WBC 0-5 0 - 5 /HPF [facility] Urine Squamous Epithelial Cell 0-2 0 - 2 /HPF [facility] Urine Bacteria None Seen None Seen [facility] Hyaline Casts, Urine 0-2 0 - 2 /LPF [facility] 07/09/2025 3:10 PM EST 07/09/2025 4:00 PM EST us Generic External Data Provider LAB URINE ORDERAB LES Final Result Performing Organization Address [facility] Co de Phone Number [facility] [address] [place] [phone] * TSH (07/09/2025 3:10 PM EST) Thyroid Stimulating Hormone 0.97 0.32 - 4.0 uIU/mL [facility] Comment:TSH 3rd Generation ( [facility]) 07/09/2025 3:10 PM EST 07/09/2025 5:55 PM EST us Aaliyah Hernandez MD LAB BLOOD ORDERABLES Final Result Performing Organization Address [facility] Co de Phone Number [facility] [address] [place] [phone] * Vitamin B12 (07/09/2025 3:10 PM EST) Vitamin B12 379 200 - 900 pg/mL [facility] Comment:NORMAL 200-900 PG/ML INDETERMINATE 160-199 PG/ML DEFICIENT < 160 PG/ML 07/09/2025 3:10 PM EST 07/09/2025 5:55 PM EST us Aaliyah Hernandez MD LAB BLOOD ORDERABLES Final Result Performing Organization Address [facility] Co de Phone Number [facility] [address] [place] [phone] * Referral to Orthopaedic Surgery (06/24/2025) us David Pizano MD OUTPATIENT REFERRAL ORDERABLES F [...] Media Lot # [id number] Lot# Expiration Date Blood Capillary blood specimen / Unknown 06/18/2025 10:48 AM EDT Aaliyah Daniel MD POINT OF CARE AYESHA T ENTER/EDIT ORDERABLES Final Result * ECG 12 lead (06/09/2025 12:14 PM EDT) Narrative Bhvaana Lee MD - 06/09/2025 12:14 PM EDT NSR@60bpm, normal axis. RBBB pattern with unspecific repolarization abn on ant leads Bhavana Lee MD ECG ORDERABLES Final Re sult * Creatinine, Random Urine (03/05/2025 10:18 AM EDT) Creatinine, Urine 296.31 mg/dL [facility] 03/05/2025 10:1 8 AM EDT 03/05/2025 12:04 PM EDT Generic External Data Provider LAB URINE ORDERAB LES Final Result [facility] [address] [place] [phone] * (ABNORMAL) Lipid Panel, Standard (09/13/2024 10:16 AM EST) Triglycerides 209(H) <150 mg/dL [facility] Comment:Desirable Triglyceri de: less than 150 mg/dLBorderline High Triglyceride 150-199 mg/dLHigh Triglyceride: 200-499 mg/dLVery High Triglyceride: greater than or equal to 5OO mg/dL Cholesterol 212(H) <200 mg/dL [facility] Comment:Desirable Cholestero l: less than 200 mg/dLBorderline High Cholesterol: 200-239 mg/dLHigh Cholesterol: greater than 239 mg/dL LDL Cholesterol Calculated 140(H) <100 mg/dL [facility] Comment:Desirable LDL: less than 100 mg/dLNear Optimal/Above Optimal LDL: 110- 129 mg/dLBorderline High LDL: 130-159 mg/dLHigh LDL: 160-189 mg/dLVery High LDL: greater than or equal to 190 mg/dL HDL Cholesterol 31(L) >40 mg/dL [facility] Comment:Desirable HDL: great er than 40 mg/dL Note: This HDL assay may give artificially low results in patients with liver disease. Blood Venous blood specimen / Unknown 09/13/2024 10:16 AM EST 09/13/2024 11:30 AM EST us Aaliyah Hernandez MD LAB BLOOD ORDERABLES Final Result [facility] [address] [place] [phone] * Cologuard?? colon cancer screening (06/08/2023 8:20 AM EDT) Cologuard Result Negative Negative 06/15/20 4:38 AM EDT [employer] (CLIA #:[id number]) Comment: NEGATIVE TEST RESULT. A negative Cologuard [...] Matt et al, N Engl J Med 2014;370(14):1726-3870) The normal value (reference range) for this assay is negative. COLOGUARD RE-SCREENING RECOMMENDATION: Periodic colorectal cancer screening is an important part of preventive healthcare for asymptomatic individuals at average risk for colorectal cancer. Following a negative Cologuard result, the [place] [employer] Society and U.S. Multi-Society Task Force screening guidelines recommend a Cologuard re-screening interval of 3 years. References: [place] [employer] Guideline for Colorectal Cancer Screening: https://www.cancer.org/cancer/xxxvq-edirsg-kseftx/ngqmwbwxi-vnmjkitjr-lelhbvy/ac s-rec ommendations.html.; Ming DK, Branden FOLEY, Doc MoraK, Colorectal Cancer Screening: Recommendations for Physicians and Patients from the U.S. Multi-Society Task Force on Colorectal Cancer Screening , Am J Gastroenterology 2017; 112:4040-4993. TEST DESCRIPTION: Composite algorithmic analysis of stool [...] Matt et al, N Engl J Med 2014;370(14):0851-4138.) Cologuard may produce a false negative or false positive result (no colorectal cancer or precancerous polyp present at colonoscopy follow up). A negative Cologuard test result does not guarantee the absence of CRC or advanced adenoma (pre-cancer). The current Cologuard screening interval is every 3 years. ([place] [employer] Society and U.S. Multi-Society Task Force). Cologuard performance data in a 10,000 patient pivotal study using colonoscopy as the reference method can be accessed at the following location: www.[employer]/results. Additional description of the Cologuard test process, warnings and precautions can be found at www.[employer].com. Stool specimen (specimen) 06/08/2023 8:20 AM EDT 06/09/2023 3:33 PM EDT Aaliyah Hernandez MD LAB MOLECULAR DIAGNOS TICS ORDERABLES Final Result [employer] (CLIA #:[id number]) [place] [address], from Last 3 Months or Most Recently Relevant to Health Maintenance Insurance [facility] C3 Care Teams School Resource Officer Relationship Specialty Start Date End Date Aaliyah Roche MD [address] [place] [phone] PCP - General Family Medicine [facility]
--- OUTSIDE RECORDS SUMMARY | 2025-07-21 09:19 | XMS_ITS | Clinical Summary ---
Author Organization [address] [facility] Address [address] [place] [address] Phone Care Team Providers Care Spanish Tutor Name Role Phone Aaliyah Roche MD Primary Care Provide r Allergies Active Allergy Reactions Criticality Noted Date Comments Baclofen Rash 01/12/2009 Cyclobenzaprine Rash Low 05/14/2021 Duloxetine High 02/10/2023 Other reaction(s): Nightmare Medications AMLODIPINE-ATOR VASTATIN ORAL Take by mouth. A ctive CARVEDILOL ORAL Take by mouth. Active LISINOPRIL ORAL Take by mouth. Active trazodone HCl (TRAZODONE ORAL) Take by mouth. Activ e predniSONE (DELTASONE) 10 mg tablet Take 1 tablet (10 mg total) by mouth 1 (one) time each day. Active amLODIPine (NORVASC) 10 mg tablet Take [...] NEEDED FOR PAIN FOR 15 DAYS Active tirzepatide, weight loss, (Zepbound) 10 mg/0.5 mL injection Inject 0.5 mL (10 mg total) under the skin every 7 (seven) days. 2 mL 5 07/09/20 Active Problems Problem Noted Date Diagnosed Date Class 3 severe obesity with body mass index (BMI) of 40.0 to 44.9 in adult ([facility] V24, [facility] V28) 06/11/2024 Obstructive sleep apnea 11/09/2020 Overview [...] Neg cardiac w/u and cta HH 04/2015 [facility] / nuclear stress done Encounters Date Type Department Care Team Description 07/16/2025 10:30 AM EST Office Visit Orthopedic Surgery [facility] [address] [facility] [address] [place] [phone] Venkata Mejia, DPM Acquired hallux valgus of right foot (Primary Dx); Follow-up exam; Tendinitis of right ankle 06/09/2025 10:30 AM EDT Nutrition Bariatric Surgery [facility] 175 [facility] [address] [place] [address] Class 2 severe obesity with serious comorbidity and body mass index (BMI) of 38.0 to 38.9 in adult, unspecified obesity type (Primary Dx) 06/06/2025 Telephone Bariatric Surgery [facility] 175 [facility] [address] [place] [address] Francesca Bermudez PA from Last 3 [...] PROCEDURE: HISTORICAL BLADDER SURGERY ESOPHAGOGASTRODUODENOSCOPY 09/24/15 PROCEDURE: ND ESOPHAGOGASTRODUODENOSCOPY TRANSORAL DIAGNOSTIC; COMMENT: Duodenitis, otherwise normal [...] Comments Brother 1 Brother 2 Alive HTN, [place] at 55 y o Brother 3 mi [...] 8:30 AM EST Nutrition Bariatric Surgery - [place] [address] [phone] Katty Stewart, VALERY [address] [phone] 12/15/2025 1:00 PM EDT Office Visit Orthopedic Surgery [facility] [address] [phone] Venkata Mejia, DPM [address] [phone] Health Maintenance Due Date Last Done Comments Diabetes: Annual Foot Exam 1975 Diabetes: Annual Retina Eye Exam 1975 RSV Immunization Adult Patients (1 - Risk 50-74 years 1-dose series) 2015 Zoster Vaccines (1 of 2) 2015 Social Influencers of Health Screening 07/31/2022 DTaP,Tdap,and Td Vaccines (2 - Td or Tdap) 05/21/2023 05/21/2013 Diabetes: Annual Urine Albumin-Creatinine Ratio (uACR) 07/23/2024 Depression Screening 08/28/2024 COVID-19 Vaccine ( season) 2025 06/05/2024, 09/07/2022, 09/03/2021, Additional history exists Influenza Vaccine (#1) 2025 , 05/30/2023, 09/07/2022, Additional history exists Diabetes: Blood Sugar Control Test (HGBA1C) 12/17/2025 06/18/2025, 11/13/2024, 06/05/2024, Additional history exists Diabetes: Annual GFR (Glomerular Filtration Rate) 03/05/2026 [...] Name Priority Date/Time Associated Diagnosis Comments XR FOOT 3+ VIEWS RIGHT Routine 07/16/2025 10:40 AM EST Follow-up exam ANNUAL BMP BLOOD TEST Routine 03/24/2016 LIPID PANEL Routine 03/24/2016 HEMOGLOBIN A1C Routine 12/30/2015 HEPATITIS C SCREENING Routine 05/25/2013 HIV SCREENING Routine 05/25/2013 from Last 3 Months or Most Recently Relevant to Health Maintenance Results * XR Foot 3+ Views Right [...] talus navicular joint to calcaneal cuboid joint Venkata Mejia DPM IMG XR PROCEDURES Final R esult * Annual BMP Blood Test (03/24/2016) Pathologist [facility] Annual BMP Blood Test abstracted Historical Provider HEALTH MAINTENANCE Final Result * (ABNORMAL) Lipid panel (03/24/2016) LDL/HDL Ratio 5(A) 0 - 4 Triglycerides 257(A) 0 - 150 mg/dL Cholesterol 187 0 - 200 mg/dL HDL 38(A) >=40 mg/dL LDL Cholesterol 98 0 - 100 mg/dL Blood Venous blood specimen / Unknown Result [facility] Provider LAB BLOOD ORDERABLES Delisa l Result * Hemoglobin A1c (12/30/2015) [facility] Hemoglobin A1C 5.6 4.0 - 6.0 % Blood Venous blood specimen / Unknown Result [facility] Provider LAB BLOOD ORDERABLES Delisa l Result * HIV Screening (05/25/2013) [facility] HIV Screening abstracted Result [facility] Provider HEALTH MAINTENANCE Final Result * Hepatitis C Screening (05/25/2013) [facility] Hepatitis C Screening abstracted Result [facility] Provider HEALTH MAINTENANCE Final Result from Last 3 Months or Most Recently Relevant to Health Maintenance Insurance MEDICAID - [place] Care Teams Spanish Tutor Relationship Specialty Start Date End Date Aaliyah Roche MD [address] [phone] PCP - General Internal Medicine 08/24/21
--- OUTSIDE RECORDS SUMMARY | 2025-07-21 09:20 | XMS_ITS | Encounter Summary ---
Author Organization [employer] Address [address] [facility] [address] [place] [address] Care Team Providers Care Material Handling Warehouse Supervisor Name Role Phone Aaliyah Roche MD Primary Care Provide r Deb Duncan RN Unavailable [phone] Sylvia Brumfield Unavailable Reason for Visit * Reason Comments Med Refill Encounter Details Date Type Department Care Team (Late st Contact Info) Description 10/21/2024 Refill [facility] [address] [place], [place] [phone] Aaliyah Roche MD 230 [place], [place] [phone] Dyslipidemia Social History Tobacco Use Types Packs/Day [...] 08/11/2025 9:15 AM EST Office Visit [facility] [address] [place] [phone] Aaliyah Roche MD 230 [place] [address] documented as of this encounter Visit Diagnoses Diagnosis Dyslipidemia Other and unspecified hyperlipidemia documented in this encounter Additional Health Concerns Assessment Noted Time PHQ-9 Depression Total Score: 12 024 11:05 AM EDT documented as of this encounter Care Teams Material Handling Warehouse Supervisor Relationship Specialty Start Date End Date Aaliyah Roche MD [address] [place] [address] PCP - General Family Medicine 07/03/19 Deb Duncan RN [address] [place] [phone] Registered Nurse Family Medicine 03/31/25 07/14/25 Sylvia Brumfield 03/31/25 07/09/25 Aicha GALEANAA 05/23/25 documented as of this encounter
--- OUTSIDE RECORDS SUMMARY | 2025-07-21 09:20 | XMS_ITS | Encounter Summary ---
Author Organization [employer] Address [address] [facility] 7t [place] [address] Care Team Providers Care Toddler Nanny Name Role Phone Aaliyah Roche MD Primary Care Provide r Deb Duncan RN Unavailable [phone] Sylvia Brumfield Unavailable Reason for Visit * Reason Comments Med Refill Encounter Details Date Type Department Care Team (Late Contact Info) Description 03/12/2023 Refill [facility] MED & PEDS [address] [place], [place] [phone] Dominga Enrique MD [address] [place] [address] [phone] Dyslipidemia Social History Tobacco Use Types Packs/Day [...] EST Office Visit [facility] MED[facility] [address] [place] [address] [phone] Aaliyah Roche MD [address] [place] [address] [phone] documented as of this encounter Visit Diagnoses Diagnosis Dyslipidemia Other and unspecified hyperlipidemia documented in this encounter Care Teams Toddler Nanny Relationship Specialty Start Date End Date Aaliyah Roche MD 230 [place] [address] PCP - General Family Medicine 07/03/19 Deb Duncan RN 505 [place] [address] Registered Nurse Family Medicine 03/31/25 07/14/25 Sylvia Brumfield 03/31/25 07/09/25 Aicha CARSON 05/23/25 documented as of this encounter
--- OUTSIDE RECORDS SUMMARY | 2025-07-21 09:20 | XMS_ITS | Encounter Summary ---
Author Organization [employer] Address [address] 7t [place] [address] Care Team Providers Care Oyster Shipper Name Role Phone Aaliyah Roche MD Primary Care Provide r Deb Duncan RN Unavailable [phone] Sylvia Brumfield Unavailable Reason for Visit * Reason Comments Med Change Request Encounter Details Date Type Department Care Team ([facility] st Contact Info) Description 03/05/2025 Refill [facility] MED[facility]INE [address] [place], [place] [phone] Aaliyah Roche MD [address] [place], [place] [phone] Neuropathy Social History Tobacco Use Types Packs/Day [...] Description 08/11/2025 9:15 AM EST Office Visit [facility] [address] [place] [phone] Aaliyah Roche MD [address] [place] [address] documented as of this encounter Visit Diagnoses Diagnosis Neuropathy Mononeuritis of unspecified site documented in this encounter Additional Health Concerns Assessment Noted Time PHQ-9 Depression Total Score: 0 03/05/20 8:59 AM EDT documented as of this encounter Care Teams Oyster Shipper Relationship Specialty Start Date End Date Aaliyah Roche MD [address] [place] [address] PCP - General Family Medicine 07/03/19 Deb Duncan, RN [address] [place] [address] Registered Nurse Family Medicine 03/31/25 07/14/25 Sylvia Brumfield 03/31/25 07/09/25 Aicha CARSON 05/23/25 documented as of this encounter
--- OUTSIDE RECORDS SUMMARY | 2025-07-21 09:20 | XMS_ITS | Encounter Summary ---
Author Organization [employer] Address [address] [facility] [address] 7t [place] [address] Care Team Providers Care Intelligence Officer Basic Name Role Phone Aaliyah Roche MD Primary Care Provide r Deb Duncan RN Unavailable [phone] Sylvia Brumfield Unavailable Reason for Visit * Reason Comments Med Refill Encounter Details Date Type Department Care Team (Late st Contact Info) Description 12/18/2024 Refill [facility] MEDICINE [address] [place], [place] [phone] Aaliyah Roche MD [address] [place], [place] [phone] Essential hypertension Social History Tobacco Use Types [...] Description 08/11/2025 9:15 AM EST Office Visit [facility] [address] [place] [address] Aaliyah Roche MD [address] [place] [address] documented as of this encounter Visit Diagnoses Diagnosis Essential hypertension Unspecified essential hypertension documented in this encounter Additional Health Concerns Assessment Noted Time PHQ-9 Depression Total Score: 12 024 11:05 AM EDT documented as of this encounter Care Teams Intelligence Officer Basic Relationship Specialty Start Date End Date Aaliyah Roche MD [address] [place] [address] PCP - General Family Medicine 07/03/19 Deb Duncan RN [address] [place] [phone] Registered Nurse Family Medicine 03/31/25 07/14/25 Sylvia Brumfield 03/31/25 07/09/25 Aicha CARSON 05/23/25 documented as of this encounter
--- OUTSIDE RECORDS SUMMARY | 2025-07-21 09:20 | XMS_ITS | Encounter Summary ---
Author Organization [employer] Address [address] [facility] [address] 7[address] [place] [address] Care Team Providers Care Digital Measurement Advisor Name Role Phone Aaliyah Roche MD Primary Care Provide r Deb Duncan RN Unavailable [phone] Sylvia Brumfield Unavailable Reason for Visit * Reason Comments Med Refill Encounter Details Date Type Department Care Team (Late st Contact Info) Description 04/14/2025 Refill [facility] 230 [place] [address] Aaliyah Roche MD [address] [place], [place] [phone] Social History Tobacco Use Types Packs/Day Years [...] Description 08/11/2025 9:15 AM EST Office Visit [facility] [address] [place] [phone] Aaliyah Roche MD [address] [place] [address] documented as of this encounter Visit Diagnoses Not on filedocumented in this encounter Additional Health Concerns Assessment Noted Time PHQ-9 Depression Total Score: 0 04/09/20 3:16 PM EDT documented as of this encounter Care Teams Digital Measurement Advisor Relationship Specialty Start Date End Date Aaliyah Roche MD [address] [place] [address] PCP - General Family Medicine 07/03/19 Deb Duncan RN [address] [place] [address] Registered Nurse Family Medicine 03/31/25 07/14/25 Sylvia Brumfield 03/31/25 07/09/25 Aicha CARSON 05/23/25 documented as of this encounter
--- OUTSIDE RECORDS SUMMARY | 2025-07-21 09:20 | XMS_ITS | Clinical Summary ---
Author Organization [facility] Address [address] [place] [address] Phone Care Team Providers Care Bone Tender Name Role Phone Aaliyah Ann MD Primary Care Provider Tyree Weber MD Unavailable [phone] Allergies Active Allergy Reactions Criticality Noted Date [...] topic Medical Devices Not on file Insurance [facility] [employer] [facility] [employer] [facility] [employer] [facility] [address] [place] [address] [place] [address] [place] [address] [place] [address] C3 ACO Care Teams Bone Tender Relationship Specialty Start Date End Date Aaliyah Ann MD [address] [place] [address] PCP - General Internal Medicine 04/29/20 Tyree Weber MD [address] [place] [address] Loss Control Technician Cardiology 05/28/20 Additional Source Comments The information contained in this document represents components of the legal health record. It is not the complete legal health record.[facility]
--- OUTSIDE RECORDS SUMMARY | 2025-07-21 09:20 | XMS_ITS | Encounter Summary ---
Author Organization [employer] Address [address] 7t [place] [address] Care Team Providers Care Utility Operator Name Role Phone Aaliyah Roche MD Primary Care Provide r Deb Duncan RN Unavailable [phone] Sylvia Brumfield Unavailable Reason for Visit * Reason Comments Med Refill Encounter Details Date Type Department Care Team (Late st Contact Info) Description 12/21/2024 Refill [facility] MEDICINE [address] [place], [place] [phone] Aaliyah Roche MD [address] [place], [place] [phone] Essential hypertension Social History Tobacco Use Types [...] Description 08/11/2025 9:15 AM EST Office Visit [facility] MEDICINE [address] [place] [address] Aaliyah Roche MD [address] [place] [address] documented as of this encounter Visit Diagnoses Diagnosis Essential hypertension Unspecified essential hypertension documented in this encounter Additional Health Concerns Assessment Noted Time PHQ-9 Depression Total Score: 12 024 11:05 AM EDT documented as of this encounter Care Teams Utility Operator Relationship Specialty Start Date End Date Aaliyah Roche MD [address] [place] [address] PCP - General Family Medicine 07/03/19 Deb Duncan RN [address] [place] [address] Registered Nurse Family Medicine 03/31/25 07/14/25 Slyvia Brumfield 03/31/25 07/09/25 Aicha CARSON 05/23/25 documented as of this encounter
--- OUTSIDE RECORDS SUMMARY | 2025-07-21 09:20 | XMS_ITS | Encounter Summary ---
Author Organization [employer] Address [address] [facility] [address] 7t [place] [address] Care Team Providers Care Keysmith Name Role Phone Aaliyah Roche MD Primary Care Provide r Deb Duncan RN Unavailable [phone] Sylvia Brumfield Unavailable Reason for Visit * Reason Onset Date Comments Med Change Request Durable Medical Equipment 04/15/2025 DME Or pako: Blood Pressure Monitor. Encounter Details Date Type Department Care Team (Late st Contact Info) Description 04/15/2025 Refill [facility] 230 [place] [address] Aaliyah Roche MD [address] [place], [place] [phone] Social History Tobacco Use Types Packs/Day Years [...] was generated and sent via FAX to [facility]. Confirmation was uploaded to Media. documented in this encounter Plan of Treatment Upcoming Encounters Date Type Department Care Team (Late st Contact Info) Description 08/11/2025 9:15 AM EST Office Visit [facility] [address] [place] [address] Aaliyah Roche MD [address] [place] [address] documented as of this encounter Visit Diagnoses Not on filedocumented in this encounter Additional Health Concerns Assessment Noted Time PHQ-9 Depression Total Score: 0 04/09/20 25 3:16 PM EDT documented as of this encounter Care Teams Keysmith Relationship Specialty Start Date End Date Aaliyah Roche MD [address] [place] [address] PCP - General Family Medicine 07/03/19 Deb Duncan RN [address] [place] [address] Registered Nurse Family Medicine 03/31/25 07/14/25 Sylvia Brumfield 03/31/25 07/09/25 Aicha CARSON 05/23/25 documented as of this encounter
--- OUTSIDE RECORDS SUMMARY | 2025-07-21 09:20 | XMS_ITS | Encounter Summary ---
Author Organization [employer] Address [address] [facility] [address] 7[address] [place] [address] Care Team Providers Care Remediation Consultant Name Role Phone Aaliyah Roche MD Primary Care Provide r eDb Duncan RN Unavailable [phone] Sylvia Brumfield Unavailable Encounter Details Date Type Department Care Team ([facility] Contact Info) Description 01/06/2023 Orders Only [facility] MED & PEDS [address] [place], [place] [phone] Alyssa Mackey LPN Social History Tobacco Use [...] Upcoming Encounters Date Type Department Care Team ([facility] Contact Info) Description 08/11/2025 9:15 AM EST Office Visit [facility] MED[facility]INE [address] [place], [place] [phone] Aaliyah Roche MD [address] [place], [place] [phone] documented as of this encounter Visit Diagnoses Not on filedocumented in this encounter Care Teams Remediation Consultant Relationship Specialty Start Date End Date Aaliyah Roche MD [address] [place] [address] PCP - General Family Medicine 07/03/19 Deb Duncan RN [address] [place] [address] Registered Nurse Family Medicine 03/31/25 07/14/25 Sylvia Brumfield 03/31/25 07/09/25 Aicha CARSON 05/23/25 documented as of this encounter
--- OUTSIDE RECORDS SUMMARY | 2025-07-21 09:20 | XMS_ITS | Clinical Summary ---
Author Organization [facility] Address [address] [place] [address] Care Team Providers Care Name Plate Stamper Name Role Phone Sabra Lim Primary Care Provider [phone] Allergies Active Allergy Reactions Criticality Noted Date [...] Screening 08/28/2024 Influenza Vaccine (#1) 2025 05/21/2013 COVID-19 Vaccine (1 - 2024-2 6 season) 2025 RSV Vaccine (60+ years old a nd patients) (1 - 1-dose 75+ series) 2040 Hepatitis B Vaccines Aged Out No long er eligible based on patient's age to complete this topic Insurance [employer] Care Teams Name Plate Stamper Relationship Specialty Start Date End Date Sabra Lim [address] [place] [address] JOSE G Barrera [id number] PCP - General 09/04/20
[2025-07-21 10:19] LABS: Folate 8.6 ng/mL (> or = 4.0); Vitamin B12 381 pg/mL (200-900)
== END 2025-07-21 08:49 | disposition home or self-care (01) ==
LOC: HO.LAB 08:48
PROVIDERS: PCP Internal Medicine; Visit Provider Internal Medicine
DX: M79.2 Neuralgia and neuritis, unspecified (principal)
CPT/HCPCS: 36415; 82607; 82746; 83090; 84443

== ENCOUNTER 2025-07-22 09:16 | Outpatient (AMB) | payer MEDICAID, SELFPAY ==
--- NOTE | 2025-07-22 09:31 | A.OFFVIS_ITS ---
Vital Signs 07/22/25 09:32 Height 5 ft 10 in Weight 253 lb 8.505 oz BMI 36.4 BP 130/72 Blood Pressure Location Lt brachial Position Sitting Pulse 85 Pulse Source Pulse Oximeter Intake Visit Reasons: ED follow up( NS) Outdoor Power Equipment Mechanic Required: No Outdoor Power Equipment Mechanic Services: Outdoor Power Equipment Mechanic Offered & Declined Allergies duloxetine Allergy (Severe, Verified 07/22/25 09:34) Nightmare baclofen (BACLOFEN) Allergy (Intermediate, Verified 07/22/25 09:34) RASH Medication List - Last Reconciled 07/22/25 by RODERICK CastellnaoC albuterol sulfate 90 mcg/actuation (Ventolin HFA) 2 puffs inhalation Q6H alfuzosin ER 10 mg PO DAILY amlodipine 10 mg PO DAILY aspirin (Adult Aspirin Regimen) 81 mg PO DAILY blood pressure test kit-large (Omron Blood Pressure Monitor-3 Series kit) As directed budesonide-formoterol 160-4.5 mcg/actuation (Symbicort) inhalation carvedilol (Coreg) 25 mg PO BID clotrimazole 1% appl topical BID ibuprofen 800 mg PO Q8H PRN lansoprazole 30 mg PO BID lisinopril 20 mg PO QAM naloxone 4 mg/actuation (Narcan) 4 mg intranasal Q2M PRN pravastatin 20 mg PO DAILY sucralfate (Carafate) 10 mL PO QID PRN tirzepatide (weight loss) (Zepbound) 10 mg subcut QWEEK HPI HPI ED follow up( NS): Details: The patient is a 60 year old individual presenting for follow-up of chest discomfort. The patient was recently seen at the [facility] emergency room for chest discomfort, which was determined to be likely musculoskeletal in nature after ruling out for acute coronary syndrome. The discomfort was characterized by pain upon touch and with breathing, and while it has improved, it is still present. A CTA of the chest performed during the [facility] visit on 06/10/2025 revealed severe LAD calcifications. The patient's last nuclear stress test was on 02/15/2021 and showed normal myocardial perfusion imaging. Current medications include amlodipine, aspirin, carvedilol, lisinopril, and pravastatin. The patient has a history of hypertension, ascending aortic aneurysm, and a type B descending thoracic aortic dissection followed by vascular surgery. His descending aorta stent was repaired in April by Dr. Marino. A recent echocardiogram from 06/20/2025 showed a moderately dilated ascending aorta at 4.6 cm, an ejection fraction of 55-60%, grade 1 diastolic dysfunction, a mildly dilated left atrium, and mild-moderate aortic regurgitation. In recent months the patient has experienced worsening generalized body soreness affecting the chest, legs and arms. The patient's primary care doctor, Dr. Aaliyah Hugo, suspected neuropathy and prescribed medication, but the patient reports no improvement after three weeks. Regarding cholesterol management, the patient was switched from atorvastatin to pravastatin but continues to experience muscle soreness. [facility] Medical History Peripheral vascular disease Morbid obesity Sacroiliac joint dysfunction of right side Sacroiliitis HTN (hypertension) Descending thoracic aortic dissection Ascending aortic aneurysm Leg edema SOB (shortness of breath) Peptic ulcer disease Back pain Anxiety Hx of lipoma Constipation Esophagitis Sacroiliac joint pain Sacroiliitis Hypercholesteremia GERD (gastroesophageal reflux disease) Fatty liver VALERY (obstructive sleep apnea) Pulmonary hypertension Anemia Surgical History Status post excision of lipoma (~08/01/23) Hx of surgical procedure (06/19/23) Hx of repair of dissecting thoracic aortic aneurysm, [place]ard type B Hx of colonoscopy History of esophagogastroduodenoscopy (EGD) History of carpal tunnel release of both wrists History of arthroscopy of both knees Hx of cholecystectomy Family History Father Depression Suicide Mother Diabetes Dementia Heart problem Sister Dementia, Onset Age: 73 Sister No problems noted. Brother No problems noted. Family/Other No problems noted. Social History Alcohol intake: former Patient Tobacco Use Status: Current someday Tobacco user Years Smoked: 30 +/- Review of Systems Const All systems reviewed & are unremarkable except as noted in HPI and below ENT Denies dizziness Card Details: body pain Reports chest pain, Denies chest pain at rest, Denies chest pain with activity, Denies rapid heart rate, Denies pedal edema, Denies edema, Denies leg edema, Denies lightheadedness, Denies palpitations, Denies dyspnea, Denies dyspnea on exertion and Denies orthopnea Resp Denies cough, Denies dyspnea and Denies dyspnea on exertion GI Denies hematochezia and Denies change in stool character Musc Details: full body muscle pain Denies abnormal gait, Denies limited range of motion, Denies muscle cramps, Denies muscle weakness, Denies numbness, Denies radiating pain into limb, Denies stiffness and Denies tingling Neuro Denies abnormal gait, Denies dizziness, Denies numbness and Denies tingling Endo Denies palpitations Physical Exam Vital Signs: Last Vital Signs Pulse 85 07/22/25 09:32 BP 130/72 07/22/25 09:32 BMI result Body Mass Index 36.4 Const Other: Facial grimace to gentle squeeze of muscles in arms, legs and with palpation of anterior chest General: cooperative and no acute distress Orientation/consciousness: patient oriented x3 Neck Neck: Yes normal visual inspection Resp Effort & Inspection: normal respiratory effort Auscultation: clear to auscultation bilaterally, no rales, no rhonchi and no wheezes Cardio Rate: regular rate Rhythm: regular rhythm Heart sounds: S1 normal heart sound present, S2 normal heart sound present, no gallops and no murmurs Neuro General: patient oriented x3 Extrem General: Yes normal to inspection, No no pedal edema and No calf tenderness Psych Appearance: grossly normal Mental Status: mental status grossly normal Speech and movement: Normal speech and movement present Assessment & Plan Assessment & Plan (1) Chest discomfort: Code(s): R07.89 - Other chest pain Category: Medical Plan: Recent ER evaluation for atypical chest discomfort. His current symptom is most likely musculoskeletal in nature. Incidentally his recent CT scan does show severe coronary calcifications in the LAD area. Last nuclear stress test normal in 2020. Will update a exercise nuclear stress test in the near future. Plan to call him with the results. Continue med management for presumed CAD including aspirin indefinitely, statin, temporarily being placed on hold, carvedilol and lisinopril for good heart rate and blood pressure control. Signs and symptoms of angina reviewed with him. (2) Hypercholesteremia: Code(s): E78.00 - Pure hypercholesterolemia, unspecified Category: Medical Plan: [place] LDL goal less than 70. He is reporting significant myalgias. He reports a recent change from atorvastatin to pravastatin however still has this symptom. Will have him hold pravastatin for 2 weeks to see if his symptom improves. Will forward this note to his PCP for review. (3) Myalgia: Code(s): M79.10 - Myalgia, unspecified site Category: Medical Plan: As above (4) Coronary artery calcification seen on CAT scan: Code(s): I25.10 - Atherosclerotic heart disease of pala coronary artery without angina pectoris Category: Medical Plan: A recent CTA of the chest at [facility] showed heart is normal size, no pericardial effusion, severe LAD artery calcifications with mild calcification of the remainder of the coronary arteries. Checking nuclear stress test as above (5) Ascending aortic aneurysm: Code(s): I71.2 - Thoracic aortic aneurysm, without rupture Category: Medical Plan: Echo 06/20/2025 showing ascending aorta 4.6 cm. Prior echo 04/01/2024 also showed ascending aorta 4.6 cm. Instructed to avoid heavy lifting. Continue aspirin, statin when able. (6) Descending thoracic aortic dissection: Comment: type B, being followed by vascular surgery at [facility] endovascular repair 06/2021 Code(s): I71.01 - Dissection of thoracic aorta Category: Medical Plan: Patient reports recent repair of his decending aorta stent by Dr. Marino. Follows with him for vascular (7) Hospital discharge follow-up: Code(s): Z51.89 - Encounter for other specified aftercare Category: Medical Plan: Notes reviewed Plan I explained to the patient that the current chest discomfort, which is tender to touch, is most consistent with a musculoskeletal origin. We discussed the generalized muscle soreness, and I noted that statin medications can cause this. I recommended the patient hold the pravastatin for two weeks to see if the symptoms improve. I informed the patient that if the soreness resolves, it's likely the medication, and a discussion with the primary doctor about alternatives would be needed; if it does not resolve, the medication is likely not the cause. I reviewed the recent echocardiogram findings, reassuring the patient that while the ascending aorta is dilated to 4.6 cm, it is stable and below the threshold requiring surgery, and we will continue to monitor it. I also explained the CT scan finding of severe calcification in the LAD artery. I clarified that while the patient's current pain is not typical for this condition, this finding warrants a closer look, especially since the last stress test was in 2020. Therefore, I am ordering a treadmill stress test to evaluate blood flow, and we will call with the results. Orders: Orders CA stress test Today I25.10 - Atherosclerotic heart disease of pala coronary artery without angina pectoris, I71.01 - Dissection of thoracic aorta, I71.2 - Thoracic aortic aneurysm, without rupture, R07.89 - Other chest pain NM cardiolite stress test Today I25.10 - Atherosclerotic heart disease of pala coronary artery without angina pectoris, I71.01 - Dissection of thoracic aorta, I71.2 - Thoracic aortic aneurysm, without rupture, R07.89 - Other chest pain Patient Instructions: - Stop taking your pravastatin cholesterol medication for two weeks and see if your muscle soreness gets better. - I will inform your primary care doctor of this plan. - If your muscle soreness improves, you should talk with your primary care doctor about other options for your cholesterol. - If your symptoms do not get better after two weeks, it is probably not the medication. - We will schedule a treadmill stress test for you to check the blood flow to your heart. - We will call you with the results of your stress test. - Your aorta is stable and will be checked again with a follow-up echo in about one year. - Continue taking your other medications as prescribed, including those for blood pressure. Patient was informed and verbally consented to the use of an ambient scribe for clinic note documentation during this visit. Visit time spent on chart review, interview, assessment, orders, documentation. Coding Level of Care Code Est Pt Level 4 (25961) Complex visit Add On G2211 Diagnoses Chest discomfort R07.89 Hypercholesteremia E78.00 Myalgia M79.10 Coronary artery calcification seen on CAT scan I25.10 Ascending aortic aneurysm I71.2 Descending thoracic aortic dissection I71.01 Hospital discharge follow-up Z51.89 Time Spent (min) 32
[2025-07-22 09:32] VITALS: BP 130/72; PULSE 85; BMI 36.4
--- OUTSIDE RECORDS SUMMARY | 2025-07-22 10:22 | XMS_ITS | Encounter Summary ---
Author Organization [employer] Address [address] [facility] [address] 7t [place] [address] Care Team Providers Care Senior Security Architect Name Role Phone Aaliyah Roche MD Primary Care Provide r Deb Duncan RN Unavailable [phone] Sylvia Brumfield Unavailable Reason for Visit * Reason Comments Med Refill Encounter Details Date Type Department Care Team (Late st Contact Info) Description 04/14/[address] [facility] [address] [place] [address] Aaliyah Roche MD 230 [place], [place] [phone] Social History Tobacco Use Types Packs/Day Years [...] 08/11/2025 9:15 AM EST Office Visit [facility] [address] [place] [address] Aaliyah Roche MD 230 [place] [address] documented as of this encounter Visit Diagnoses Not on filedocumented in this encounter Additional Health Concerns Assessment Noted Time PHQ-9 Depression Total Score: 0 04/09/20 3:16 PM EDT documented as of this encounter Care Teams Senior Security Architect Relationship Specialty Start Date End Date Aaliyah Roche MD [address] [place] [address] PCP - General Family Medicine 07/03/19 Deb Duncan RN [address] [place] [address] Registered Nurse Family Medicine 03/31/25 07/14/25 Sylvia Brumfield 03/31/25 07/09/25 Aicha CARSON 05/23/25 documented as of this encounter
--- OUTSIDE RECORDS SUMMARY | 2025-07-22 10:22 | XMS_ITS | Clinical Summary ---
Author Organization 175 [facility] Address 175 [place] [address] Phone Care Team Providers Care Mining Machinery Assembler Name Role Phone Aaliyah Roche MD [...] (BMI) of 40.0 to 44.9 in adult ([facility] V24, [facility] V28) 06/11/2024 Obstructive sleep apnea [...] Neg cardiac w/u and cta HH 04/2015 [facility] / nuclear stress done Encounters Date Type Department Care Team Description 07/16/2025 10:30 AM EST Office Visit Orthopedic Surgery [facility] 250 175 [facility] 250 [place] [phone] Venkata Mejia, DPM Acquired hallux valgus of right foot (Primary Dx); Follow-up exam; Tendinitis of right ankle 06/09/2025 10:30 AM EDT Nutrition Bariatric Surgery [facility] 175 [facility] [address] [place] [address] Class 2 severe obesity with serious comorbidity and body mass index (BMI) of 38.0 to 38.9 in adult, unspecified obesity type (Primary Dx) 06/06/2025 Telephone Bariatric Surgery [facility] 175 [facility] 120 [place] [address] Francesca Bermudez PA from Last [...] PROCEDURE: HISTORICAL BLADDER SURGERY ESOPHAGOGASTRODUODENOSCOPY 09/24/15 PROCEDURE: [place] ESOPHAGOGASTRODUODENOSCOPY TRANSORAL DIAGNOSTIC; COMMENT: Duodenitis, otherwise normal [...] Comments Brother 1 Brother 2 Alive HTN, [place] at 55 y o Brother 3 mi [...] 8:30 AM EST Nutrition Bariatric Surgery - [place] [address] [address] Katty Stewart, [place] [address] [address] 12/15/2025 1:00 PM EDT Office Visit Orthopedic Surgery [facility] [address] [address] Venkata Mejia, DPM [address] [phone] Health Maintenance Due Date Last Done Comments [...] * Annual BMP Blood Test (03/24/2016) Pathologist [facility] Annual BMP Blood Test abstracted Historical Provider HEALTH MAINTENANCE Final Result * (ABNORMAL) Lipid panel (03/24/2016) LDL/HDL Ratio 5(A) 0 - 4 Triglycerides 257(A) 0 - 150 mg/dL Cholesterol 187 0 - 200 mg/dL HDL 38(A) >=40 mg/dL LDL Cholesterol 98 0 - 100 mg/dL Blood Venous blood specimen / Unknown Result [facility] Provider LAB BLOOD ORDERABLES Delisa l Result * Hemoglobin A1c (12/30/2015) [facility] Hemoglobin A1C 5.6 4.0 - 6.0 % Blood Venous blood specimen / Unknown Result [facility] Provider LAB BLOOD ORDERABLES Delisa l Result * HIV Screening (05/25/2013) [facility] HIV Screening abstracted Result [facility] Provider HEALTH MAINTENANCE Final Result * Hepatitis C Screening (05/25/2013) [facility] Hepatitis C Screening abstracted Result [facility] Provider HEALTH MAINTENANCE Final Result from Last 3 Months or Most Recently Relevant to Health Maintenance Insurance MEDICAID - [place] Care Teams Mining Machinery Assembler Relationship Specialty Start Date End Date Aaliyah Roche MD [address] [phone] PCP - General Internal Medicine 08/24/21
--- OUTSIDE RECORDS SUMMARY | 2025-07-22 10:22 | XMS_ITS | Encounter Summary ---
Author Organization [employer] Address [address] [facility] [address] [place] [address] Care Team Providers Care Industrial Roofer Name Role Phone Aaliyah Roche MD Primary Care Provide r Deb Duncan RN Unavailable [phone] Sylvia Brumfield Unavailable Reason for Visit * Reason Onset Date Comments Med Change Request Durable Medical Equipment 04/15/2025 DME Or pako: Blood Pressure Monitor. Encounter Details Date Type Department Care Team (Late st Contact Info) Description 04/15/2025 Refill [facility] [address] [place] [address] Aaliyah Roche MD 230 [place], [place] [phone] Social History Tobacco Use Types Packs/Day Years [...] was generated and sent via FAX to [facility]. Confirmation was uploaded to Media. documented in this encounter Plan of Treatment Upcoming Encounters Date Type Department Care Team (Late st Contact Info) Description 08/11/2025 9:15 AM EST Office Visit [facility] [address] [place] [address] Aaliyah Roche MD 230 [place] [address] documented as of this encounter Visit Diagnoses Not on filedocumented in this encounter Additional Health Concerns Assessment Noted Time PHQ-9 Depression Total Score: 0 04/09/20 25 3:16 PM EDT documented as of this encounter Care Teams Industrial Roofer Relationship Specialty Start Date End Date Aaliyah Roche MD 230 [place] [address] PCP - General Family Medicine 07/03/19 Deb Duncan RN [address] [place] [address] Registered Nurse Family Medicine 03/31/25 07/14/25 Sylvia Brumfield 03/31/25 07/09/25 Aicha CARSON 05/23/25 documented as of this encounter
--- OUTSIDE RECORDS SUMMARY | 2025-07-22 10:22 | XMS_ITS | Continuity of Care Document ---
Author Organization [place] - [facility], BORIS Coates 2nd floor Address [address] [place] [address] Care Team Providers Care Associate Designer Name Role Phone HOMER SOUZA Primary Care Provider [phone] Assessment Encounter Date Assessment Date Assessment LastModified [...] or to follow up sooner if needed. [email or web address] Not available 06/16/2025 07:39:41 Plan of Treatment Reminders Order Date Submit Date Provider Last Modified By Organization Details Last Modified Time Details Appointments None record ed. Lab None record ed. Referral None record ed. Procedures None record ed. Surgeries None record ed. Imaging None record ed. Medication Orders None record ed. Patient TargetsNo targets recorded. Patient InstructionsNo instructions recorded. Reason for Referral None Reported. Problems Name Problem SNOMED Code Status Onset Date Resolution Date Notes Provider Name and Address Organization Details Recorded Time Pain of left shoulder region Active 2024 Heron Cruz PA-C [address], [place], [address], [facility] 5 12:44:49 Traumatic left rotator cuff tear Active 2024 Heron Cruz PA-C [address], [place], [address], [facility] 5 06:03:52 Derangement of left shoulder joint 4634366494999 9106 Active 2024 Heron Cruz PA-C [address], [place], [address], [facility] 5 13:04:02 Metal foreign body in back 554664920 Active 2024 SAI LACKEY [facility] 5 09:30:25 Problem Notes None recorded. Procedures Surgical History Date Name Laterality Status Provider Name and Address Organization Details Recorded Time 5 JZHip completed Zacarias Bermudez PA-C [address] [facility], [place], [address], [facility] 06/16/2025 07:39:04 5 Sports Shoulder 4&1 completed Heron Cruz PA-C [address], [place], [address], [facility] 04/30/2025 11:10:06 5 Knee Kenalog 1cc L/R completed Heron Goss MD [address], [place], [address], [facility] 10/20/2024 13:30:30 Imaging Results None recorded. Procedure Notes None recorded. Medical Equipment None Reported. Allergies Allergen ID Allergen Name Allergen Category Reaction Reaction Severity Criticality Documentation Date Start Date Code Code System Note Provider Name and Address Organization Details Recorded Time 815933 baclofen medicatio n Not available Not available Not available 10/16/2024 1292 RxNorm TAYLOR CHOWDARYAICHA almanza [place] [facility] 13:57:16 Medications Name Sig Start Date [...] Updated DateTime 06/16/2025 175.26 cm 36.9 kg/m2 355007.09 g Teresa Arndt [facility] 06/16/2025 13:02:21 Social History Question Answer Notes LastModified by [employer] Details LastModified Time Tobacco Smoking Status Former Smoker Heron Cruz PA-C [address] [facility] [address], [place], [address], [facility] 04/03/2025 12:43:40 When Did You Quit Smoking? 16+yearssin celastcikareem ette Information not available 04/03/2025 What Is Your Relationship Status? Single Information not available 04/03/2025 Sex: Unknown Functional Status Question Answer Note LastModified by [employer] Details LastModified Time Do you use any illicit or recreational drugs? No Information not available 04/03/2025 What is your level of alcohol consumption? None Information not available 04/03/2025 Mental Status None recorded. Family History Nothing Reported. Medical History Condition Response Allergies/Hayfever N Coronary Artery Disease N Breathing or lung disorders N Anxiety/Depression N Emphysema N Nerve Disorders N Thyroid Problems N COPD Y Pacemaker N Anemia N Kidney/Bladder Problems N Vascular Disease N Heart Trouble Y Heart Attack ([place]) N Gastrointestinal Disease N Cholesterol Y Diabetes [...] ICD10 Code Diagnosis IMO Codes Diagnosis Note [id number] JESÚS Wilson 2nd floor [address] [facility] [place] [address] 06/16/2025 12:37:52 06/24/2025 09:18:32 Osteoarthritis of right hip joint 7741076068 60785 M16.11 Health Concerns Section Related Observation LastModified by Organization Detai ls LastModified Time None Recorded Concern Status LastModified by Organization Details LastModified Time None Recorded Payers Encounter Date Sequence Insurance Name Policy Number Policy Orozco Covered Member ID Orozco Member ID Guarantor Name 06/16/2025 1 [place] [facility] PL[facility] Silvestre Vazquez [id number] Silvestre Villalobos
--- OUTSIDE RECORDS SUMMARY | 2025-07-22 10:22 | XMS_ITS | Continuity of Care Document ---
Author Organization [place] - [facility], [address]OR[address] Coates 2nd floor Address [address] [place] [address] Care Team Providers Care Waste Water Or Water Plant Operator Name Role Phone HOMER SOUZA Primary Care Provider Assessment No assessment recorded. Plan of Treatment Reminders Order Date Submit [...] Abnormal Flag Note LastModifiedBy Organization Detail LastModifiedTime 04/03/20 25 04/03/2025 XR, cervi kell spine , 1 view http:/ [email or web address] ?Encry pted=s hAaTro YD8dLq bEUv6g %2BXZw aYqtaq 0bqfl% 2Fg9IQ a4ajBk vP9nXo QUaueC m3YtLR FvZlgJ JJ8mAn HZtai3 5i9087 AC0Klb nqDVqK hKiQtr MwF INTERFACE [facility] Office [address], [place], [address], 04/03/2025 12:50:00 04/03/20 25 04/03/2025 XR, cervi kell spine , 1 view http:/ [email or web address] ?Encry pted=s hAaTro YD8dLq bEUv6g %2BXZw aYqtaq 0bqfl% 2Fg9IQ a4ajBk vP9nXo QUaueC m3YtLR FvZlgJ JJ8mAn HZtai3 7m5963 AC0Klb nqDVqK hKiQtr MwF INTERFACE [facility] [address], [place], [address], 04/03/2025 12:50:02 04/03/20 25 04/03/2025 XR, shoul pako, 2 or more view http:/ [email or web address] ?Encry pted=s hAaTro YD8dLq bEUv6g %2BXZw aYqtaq 0bqfl% 2Fg9IQ a4ajBk vP9nXo QUaueC m3YtLR FvZlgJ JJ8mAn HZtai3 1j3166 AC0Klb nqDVqK gKiQtr MwF INTERFACE [facility] [address], [place], [address], 04/03/2025 12:53:43 04/03/20 25 04/03/2025 XR, shoul pako, 2 or more view http:/ [email or web address] ?Encry pted=s hAaTro YD8dLq bEUv6g %2BXZw aYqtaq 0bqfl% 2Fg9IQ a4ajBk vP9nXo QUaueC m3YtLR FvZl JJ8Denair HZtai3 0d1518 AC0Klb nqDVqK gKiQtr MwF INTERFACE [facility] [address], [place], [address], 04/03/2025 12:53:45 04/15/20 25 04/14/2025 XR, lumba r spine , 2 view No observ ation record ed. [address], [place], [address], 04/16/2025 13:58:33 04/15/20 25 04/15/2025 XR, cervi kell spine , 1 view No observ ation record ed. ALIZE [facility] [address] [place], [address], 04/15/2025 12:23:35 04/15/20 25 04/14/2025 XR, gordona cic spine , 3 view No observ ation record ed. [email or web address] [facility] [address] [place], [address], 04/16/2025 13:57:57 04/29/20 25 04/25/2025 MRI, shoul pako, w/o contr ast [facility] Access ion Number : [id number] [place] [place] Name: Silvestre Villalobos Record Number : [id number] Date of : 1964 Date of Exam: 2024 Referr ing Physic shellie: Mihai [facility] ([facility]) [address] [facility], [address] [place] [address] Exam: MR Should er (C-) CPT 78758 - Left Room Descri ption: [facility] 3.0T Clinic al Histor y: Other [...] There is subcho ndral cyst in the auto leasing manager ior aspect of the greate r tubero [...] ly Signed By: Yamile Dickson ra, MD [email or web address] [facility] ([facility]) [address], [place], [address], 04/29/2025 14:33:54 Result Notes None recorded. Problems Name Problem SNOMED Code Status Onset Date Resolution Date Notes Provider Name and Address Organization Details Recorded Time Pain of left shoulder region Active 2024 Heron Cruz PA-C [address], [place], [address], [facility] 5 12:44:49 Traumatic left rotator cuff tear Active 2024 Heron Cruz PA-C [address], [place], [address], [facility] 5 06:03:52 Derangement of left shoulder joint 2171491513663 9106 Active 2024 Heron Cruz PA-C [address], [place], [address], [facility] 5 13:04:02 Metal foreign body in back 513918023 Active 2024 SAI LACKEY [facility] 5 09:30:25 Problem Notes None recorded. Procedures Surgical History Date Name Laterality Status Provider Name and Address Organization Details Recorded Time 5 JZHip completed Zacarias Bermudez PA-C [address] [facility], [place], [address], [facility] 06/16/2025 07:39:04 5 Sports Shoulder 4&1 completed Heron Cruz PA-C [address], [place], [address], [facility] 04/30/2025 11:10:06 5 Knee Kenalog 1cc L/R completed Heron Goss MD [address], [place], [address], [facility] 10/20/2024 13:30:30 Imaging Results None recorded. Procedure Notes None recorded. Medical Equipment None Reported. Allergies Allergen ID Allergen Name Allergen Category Reaction Reaction Severity Criticality Documentation Date Start Date Code Code System Note Provider Name and Address Organization Details Recorded Time 896725 baclofen medicatio n Not available Not available Not available 10/16/2024 1292 RxNorm TAYLOR UZIEL [facility] 5 13:57:16 Medications Name Sig Start [...] Updated DateTime 04/30/2025 175.26 cm 36.9 kg/m2 836494.09 g Heron Cruz PA-C [address] [facility] [address], [place], [address], [facility] 04/30/2025 10:51:14 Social History Question Answer Notes LastModified by Organizat ion Details LastModified Time Tobacco Smoking Status Former Smoker Heron Cruz PA-C [address], [place], [address], [facility] [place] [facility] 04/03/2025 12:43:40 When Did You Quit Smoking? 16+yearssin eugenia valdez [place] [address] Information not available 04/03/2025 What Is Your Relationship Status? [place] [address] Information not available 04/03/2025 Sex: Unknown Functional Status Question Answer Note LastModified by Organizat ion Details LastModified Time Do you use any illicit or recreational drugs? No [place] [address] Information not available 04/03/2025 What is your level of alcohol consumption? None [place] [address] Information not available 04/03/2025 Mental Status None recorded. Family History Nothing Reported. Medical History Condition Response Allergies/Hayfever N Coronary Artery Disease N Breathing or lung disorders N Anxiety/Depression N Emphysema N Nerve Disorders N Thyroid Problems N COPD Y Pacemaker N Kidney/Bladder Problems N Anemia N Vascular Disease N Heart Trouble Y Heart Attack ([place]) N Gastrointestinal Disease N Cholesterol Y Diabetes N Autoimmune disease N Inflammatory Joint disease N Bleeding Disorder N Orthotics N Seizures/Epilepsy N Arthritis Y Blood Clot N AIDS/HIV N Congestive Heart Failure (CHF) N Acid Reflux (GERD) Y Cancer N Stroke N Asthma N Circulation Problems N Peripheral Vascular Disease N Sleep Apnea N Hepatitis N Heart Disease N Rheumatoid Arthritis N Pulmonary Embolism N Arrhythmia N Headaches N Fibromyalgia N Hypertension Y Osteoporosis N Past Encounters Encounter ID Performer Location Encounter Start Date Encounter Closed Date Diagnosis/Indication Diagnosis SNOMED-CT Code Diagnosis ICD10 Code Diagnosis IMO Codes Diagnosis Note [id number] MD BORIS Shafer 1st Floor [address] [place] [address] 04/02/2025 16:56:21 04/08/2025 14:53:33 Trochanteric bursitis of right hip 9477291062 14026 M70.61 [id number] JESÚS Calderon 3rd floor [address] [place] [address] 04/03/2025 12:38:25 04/10/2025 15:52:58 Pain of left shoulder region 8118147791 M25.512 [id number] Traumatic left rotator cuff tear 5217374617 1633990 S46.012A 202953097 Derangemen t of left shoulder joint 0138799358 7295328 M24.870 [id number] JESÚS Calderon 2nd floor [address] [place] [address] 04/30/2025 10:13:32 05/09/2025 09:55:52 Traumatic left rotator cuff tear 7344666649 5869087 S46.012D [id number] Health Concerns Section Related Observation LastModified by Organization Detai ls LastModified Time None Recorded Concern Status LastModified by Organization Details LastModified Time None Recorded Payers Encounter Date Sequence Insurance Name Policy Number Policy Orozco Covered Member ID Orozco Member ID Guarantor Name 04/30/2025 1 [place] [facility] PLAN Silvestre Vazquez [id number] Silvestre Villalobos Notes Date Note Type Note Provider Name and Address Organization Details Recorded Time 04/30/2025 text/html I am seeing this patient [...] ordered, obtained and independently reviewed today at [facility]. Four views of the Left shoulder demonstrate [...] because of the integrity of the subscapularis. [employer] speech recognition gallery or museum guide software was used to create portions of this document. An attempt at proofreading has been made to minimize errors. Please call for corrections. Heron Cruz PA-C [address] [place] [address], [place], [address], [facility] [place] [facility] 04/30/2025 11:12:24
--- OUTSIDE RECORDS SUMMARY | 2025-07-22 10:22 | XMS_ITS | Clinical Summary ---
Author Organization [employer] Address [address] [place] [address] Care Team Providers Care Director Water And [employer] Services Name Role Phone Aaliyah Roche MD Primary [...] times daily. 60 g 1 07/09/20 Active sucralfate (Carafate) 1 g tablet Take 1 g by mouth in the morning and 1 g at noon and 1 g in the evening. 06/11/20 25 025 oxyCODONE (Roxicodone) 5 MG immediate release tabletIndication s:Costochondriti s Take 1 tablet (5 mg) by mouth every 12 (twelve) hours if needed for severe pain for up to 5 days. 10 tablet 06/18/20 25 025 Active Problems Problem Noted Date Diagnosed [...] artery origin through the edge of the [id number] at the bilateral common iliac arteries. Unchanged [...] follow up on 06/20/25 -I called his chairman Dr Jeronimo today to confirm date but was not able to reach staff -left voice mail . Current symptom does not seem associated w cardiac nature but pt does have svere LAD diagnosis and needs f up w chairman, pt on statins and ASA -discuss w [...] meals. Check fgstk daily, glucometer sent to [facility] pharmacy Encouraged physical activity as tolerated. FU [...] Overview (05/08/2023): Neg cardiac w/u and cta 04/2015 [facility] / nuclear stress done Resolved Problems Problem Noted Date Diagnosed Date Resolved Date Uncomplicated opioid dependence ([facility]) 06/05/2024 07/09/2025 Tobacco use disorder 01/05/2009 025 Encounters Date Type Department Care Team Description 07/14/2025 Patient Outreach [facility] [address] [place] [phone] Aaliyah Roche MD Care Management (C3CM- f/u call) 07/10/2025 Patient Outreach [address] [phone] Aaliyah Roche MD Care Management (C3CM- f/u call) 07/09/2025 2:00 PM EST Office Visit [address] [phone] Aaliyah Roche MD Neuropathic pain (Primary Dx); Abnormality of thoracic aorta 07/09/2025 Orders Only GENERIC EXTERNAL DATA DEPARTMENT Provider, Generic External Data 07/09/2025 Travel 07/09/2025 Patient Outreach [address] [address] Aaliyah Roche MD Care Coordination (W outreach sdoh) 07/03/2025 Patient Outreach [address] [address] Aaliyah Roche MD Care Management (C3- f/u call) 06/20/2025 Patient Outreach [address] [address] Aaliyah Roche MD Care Management (C3CM- f/u call) 06/18/2025 10:15 AM EDT Office Visit [facility] [address] [place] [phone] Aaliyah Orozco MD Costochondritis (Primary Dx); Type 2 diabetes mellitus with hyperglycemia, without long-term current use of insulin (HCC); Chest discomfort 06/18/2025 Travel 06/17/[address] [address] Aaliyah Orozco MD chart prep 06/10/2025 Patient Outreach [address] [address] Aaliyah Roche MD Care Management (C3CM- f/u call) 06/09/2025 11:20 AM EDT Office Visit [facility] [address] [place] [phone] Bhavana Lee MD Exertional chest pain (Primary Dx); Other chest pain 06/09/[address] [address] Maida Bean, RN Nurse Triage 06/09/2025 Travel 06/06/[address] [address] Aaliyah Roche MD 06/03/2025 Patient Outreach [address] [address] Aaliyah Roche MD Pre-visit Planning (SDOH screening completed on 04/09/2025) 05/30/[address] [address] Aaliyah Roche MD Nurse Triage 05/30/2025 Patient Outreach [facility] [address] [place] [phone] Aaliyah Roche MD Care Coordination (SDOH f/u) 05/29/2025 Patient Outreach [facility] [address] [place] [phone] Aaliyah Roche MD Care Management (C3- f/u call #2 lvm) 05/27/2025 Patient Outreach [facility] [address] [place] [phone] Aaliyah Roche MD 05/23/2025 Patient Outreach [facility] [address] [place] [phone] Aaliyah Roche MD Transition Of Care (Tcm) (HDF uscheduled) 05/22/2025 Telephone [facility] [address] [place] [phone] Aaliyah Roche MD FYI 05/16/2025 Patient Outreach [facility] [address] [place] [phone] Aaliyah Roche MD Care Management (C3- f/u call) 05/09/2025 Refill [facility] [address] [place] [phone] Aaliyah Roche MD 05/07/2025 Patient Outreach [facility] [address] [place] [phone] Aaliyah Roche MD Care Coordination (SDMD f/u) 05/07/2025 Patient Outreach [facility] [address] [place] [phone] Aaliyah Roche MD Care Management (C3- f/u call) 04/23/2025 Patient Outreach [facility] [address] [place] [phone] Aaliyah Roche MD Care Coordination (SDMD f/u) 04/23/2025 Patient Outreach [facility] [address] [place] [address] Aaliyah Roche MD Care Management (C3CM- f/u call) 04/21/2025 9:00 AM EDT Office Visit [facility] [address] [place] [address] Yung Dao MD Rash (Primary Dx) 04/21/2025 Refill [facility] [address] [place] [address] Jodi Chen RN Primary hypertension 04/21/2025 Travel [...] Description 08/11/2025 9:15 AM EST Office Visit [facility] [address] [place] [address] Aaliyah Roche MD [address] [place], [place] [phone] Health Maintenance Due Date Last Done Comments [...] Procedure Name Priority Date/Time Associated Diagnosis Comments TSH W/REFLEX TO FT4 Routine 07/21/2025 9 :03 AM EST Neuropathic pain VITAMIN B12/FOLATE, SERUM PANEL Routine 07/21/2025 9:03 AM EST Neuropathic pain VITAMIN B12 Routine 07/09/2025 3:10 PM EST [...] Recently Relevant to Health Maintenance Results * Vitamin B12/Folate, Serum Panel (07/21/2025 9:03 AM EST) Vitamin B12 381 200 - 900 pg/mL [facility] Comment:NORMAL 200-900 PG/ML INDETERMINATE 160-199 PG/ML DEFICIENT < 160 PG/ML Folate 8.6 > or = 4.0 ng/mL [facility] Comment:Reference Values:> o r = 4.0 ng/mL< 4.0 ng/mL suggests folate deficiency Methotrexate, aminopterin and folinic acid(leucovorin) are chemotherapeutic agents whose molecularstructures are similar to folate; therefore, the Architectfolate assay cannot be used for patients using these drugs. Blood Venous blood specimen / Unknown 07/21/2025 9:03 AM EST 07/21/2025 9:03 AM EST us Aaliyah Hernandez MD LAB BLOOD ORDERABLES Final Result [facility] [address] [place] [phone] * TSH W/Reflex to FT4 (07/21/2025 9:03 AM EST) TSH reflex Free T4 3.39 0.32 - 4.0 uIU/mL [facility] Blood Venous blood specimen / Unknown 07/21/2025 9:03 AM EST 07/21/2025 9:03 AM EST us Aaliyah Hernandez MD LAB BLOOD ORDERABLES Final Result Performing Organization Address City/[facility]/ZIP Co de Phone Number [facility] [address] [place] [phone] * Methylmalonic Acid (07/09/2025 3:10 PM EST) Methylmalonic Acid 73 69 - 390 nmol/L [facility] Comment: Serum methylmalonic acid (MMA) levels [...] outcomes,such as neural tube defects and intrauterine growthrestriction.Courseload utilized Multi-Modal Decomposition(MMD) analysis to establish first and second trimester-specific MMA reference intervals in , as givenbelow:MMA, First trimester (<13 wks gestation): 58-167 nmol/LMMA, Second trimester (13-23 wks gestation):63-241 nmol/LThis test was developed and its analytical performancecharacteristics have been determined by [employer]. It has not been cleared or approved by theFDA. This assay has been validated pursuant to the CLIAregulations and is used for clinical purposes.THIS TEST WAS PERFORMED AT:[id number] [place] [id number] CUEVA MD,PHD Blood Venous blood specimen / Unknown 07/09/2025 3:10 PM EST 07/09/2025 5:55 PM EST us Aaliyah Hernandez MD LAB BLOOD ORDERABLES Final Result [facility] [address] [place] [phone] * RPR (Monitor) with Reflex to??Titer (07/09/2025 3:10 PM EST) RPR (Monitor) w/Refl Titer NON-REACTI VE NON-REACT TRE [facility] Comment:THIS TEST WAS PERFOR MED AT:[employer] [place] [phone] FERRARA MD Rapid Plasma Reagin Ab Titer TNP [facility] Blood Venous blood specimen / Unknown 07/09/2025 3:10 PM EST 07/09/2025 3:59 PM EST Aaliyah Hernandez MD LAB BLOOD ORDERABLES Final Result [facility] [address] [place] [phone] * (ABNORMAL) Urinalysis Complete (07/09/2025 3:10 PM EST) Color Urine Yellow [facility] Appearance Urine Clear [facility] PH 5.5 5.0 - 9.0 [facility] Glucose Urine UA Negative Negative mg/dL [facility] Urine Blood Large (3+)(A) Negative [facility] Specific [place] - Urine 1.025 1.005 - 1.025 [facility] Urine Protein 30 (1+)(A) Neg-Trace mg/dL [facility] Urine Ketones Negative Negative mg/dL [facility] Nitrite Urine Negative Negative [facility] Leukocyte Esterase Urine Negative Negative [facility] RBC Urine >20(A) 0 - 2 /HPF [facility] Urine WBC 0-5 0 - 5 /HPF [facility] Urine Squamous Epithelial Cell 0-2 0 - 2 /HPF [facility] Urine Bacteria None Seen None Seen [facility] Hyaline Casts, Urine 0-2 0 - 2 /LPF [facility] 07/09/2025 3:10 PM EST 07/09/2025 4:00 PM EST us Generic External Data Provider LAB URINE ORDERAB LES Final Result Performing Organization Address [facility] Co de Phone Number [facility] [address] [place] [phone] * TSH (07/09/2025 3:10 PM EST) Thyroid Stimulating Hormone 0.97 0.32 - 4.0 uIU/mL [facility] Comment:TSH 3rd Generation ( [facility]) 07/09/2025 3:10 PM EST 07/09/2025 5:55 PM EST us Aaliyah Hernandez MD LAB BLOOD ORDERABLES Final Result Performing Organization Address [facility] Phone Number [facility] [address] [place] [phone] * Vitamin B12 (07/09/2025 3:10 PM EST) Pathologist [facility] Vitamin B12 379 200 - 900 pg/mL [facility] Comment:NORMAL 200-900 PG/ML INDETERMINATE 160-199 PG/ML DEFICIENT < 160 PG/ML 07/09/2025 3:10 PM EST 07/09/2025 5:55 PM EST us Aaliyah Hernandez MD LAB BLOOD ORDERABLES Final Result Performing Organization Address [facility] Co de Phone Number [facility] [address] [place] [phone] * Referral to Orthopaedic Surgery (06/24/2025) us David Pizano MD OUTPATIENT REFERRAL ORDERABLES F inal Result * (ABNORMAL) POCT Hgb A1c (06/18/2025 11:01 AM EDT) Pathologist [facility] Hemoglobin A1C 5.8(A) 4.0 - 5.7 % QC Media Lot # [id number] Lot# Expiration Date Blood 06/18/2025 11:0 1 AM EDT Aaliyah Daniel MD POINT OF CARE AYESHA T ENTER/EDIT ORDERABLES Final Result * POCT Glucose (06/18/2025 10:48 AM EDT) Pathologist [facility] Glucose Blood, POC 103 60 - 200 [...] Creatinine, Random Urine (03/05/2025 10:18 AM EDT) Pathologist [facility] Creatinine, Urine 296.31 mg/dL [facility] 03/05/2025 10:1 8 AM EDT 03/05/2025 12:04 PM EDT Generic External Data Provider LAB URINE ORDERAB LES Final Result [facility] [address] [place] [phone] * (ABNORMAL) Lipid Panel, Standard (09/13/2024 10:16 AM EST) [facility] Triglycerides 209(H) <150 mg/dL [facility] Comment:Desirable Triglyceri de: less than 150 mg/dLBorderline High Triglyceride 150-199 mg/dLHigh Triglyceride: 200-499 mg/dLVery High Triglyceride: greater than or equal to 5OO mg/dL Cholesterol 212(H) <200 mg/dL [facility] Comment:Desirable Cholestero l: less than 200 mg/dLBorderline High Cholesterol: 200-239 mg/dLHigh Cholesterol: greater than 239 mg/dL LDL Cholesterol Calculated 140(H) <100 mg/dL [facility] Comment:Desirable LDL: less than 100 mg/dLNear Optimal/Above Optimal LDL: 110- 129 mg/dLBorderline High LDL: 130-159 mg/dLHigh LDL: 160-189 mg/dLVery High LDL: greater than or equal to 190 mg/dL HDL Cholesterol 31(L) >40 mg/dL [facility] Comment:Desirable HDL: great er than 40 mg/dL Note: This HDL assay may give artificially low results in patients with liver disease. Blood Venous blood specimen / Unknown 09/13/2024 10:16 AM EST 09/13/2024 11:30 AM EST Aaliyah Hernandez MD LAB BLOOD ORDERABLES Final Result [facility] [address] [place] [phone] * Cologuard?? colon cancer screening (06/08/2023 8:20 AM EDT) Cologuard Result Negative Negative 06/15/20 4:38 AM EDT [email or web address] (CLIA #:[id number]) Comment: NEGATIVE TEST RESULT. A negative Cologuard [...] (Terrance Ellison al, N Engl J Med 2014;370(14):2109-8321) The normal value (reference range) for this assay is negative. COLOGUARD RE-SCREENING RECOMMENDATION: Periodic colorectal cancer screening is an important part of preventive healthcare for asymptomatic individuals at average risk for colorectal cancer. Following a negative Cologuard result, the [place] [employer] and U.S. Multi-Society Task Force screening guidelines recommend a Cologuard re-screening interval of 3 years. References: [place] [employer] Guideline for Colorectal Cancer Screening: https://www.cancer.org/cancer/uwfrl-pvisre-sqkjpf/jlpqhrrdc-cfoucxhqc-evvuzoh/ac s-rec ommendations.html.; Ming DK, Branden CR, Doc MoraK, Colorectal Cancer Screening: Recommendations for Physicians and Patients from the U.S. Multi-Society Task Force on Colorectal Cancer Screening , Am J Gastroenterology 2017; 112:2212-2484. TEST DESCRIPTION: Composite algorithmic analysis of stool [...] colonoscopy. (Terrance Doherty, N Engl J Med 2014;370(14):0340-3112.) Cologuard may produce a false negative or false positive result (no colorectal cancer or precancerous polyp present at colonoscopy follow up). A negative Cologuard test result does not guarantee the absence of CRC or advanced adenoma (pre-cancer). The current Cologuard screening interval is every 3 years. ([place] [employer] Society and U.S. Multi-Society Task Force). Cologuard performance data in a 10,000 patient pivotal study using colonoscopy as the reference method can be accessed at the following location: www.[email or web address]/results. Additional description of the Cologuard test process, warnings and precautions can be found at www.cologuard.com. Stool specimen (specimen) 06/08/2023 8:20 AM EDT 06/09/2023 3:33 PM EDT Aaliyah Hernandez MD LAB MOLECULAR DIAGNOS TICS ORDERABLES Final Result [email or web address] (CLIA #:[id number]) [place] [address], from Last 3 Months or Most Recently Relevant to Health Maintenance Insurance [facility] C3 Care Teams Director [employer] And [employer] Relationship Specialty Start Date End Date Aaliyah Roche MD [address] [place] [phone] PCP - General Family Medicine 07/03/19 [place] 05/23/25
--- OUTSIDE RECORDS SUMMARY | 2025-07-22 10:22 | XMS_ITS | Encounter Summary ---
Author Organization [employer] Address [address] [place] [address] Care Team Providers Care Stopboard Assembler Name Role Phone Aaliyah Roche MD Primary Care Provide r Deb Duncan RN Unavailable Sylvia Brumfield Unavailable Reason for Visit * Reason Comments Med Refill Encounter Details Date Type Department Care Team (Late st Contact Info) Description 12/18/[address] [facility] [address] [place], [place] [phone] Aaliyah Roche MD [address] [place], [place] [phone] Essential hypertension Social History Tobacco Use Types [...] 08/11/2025 9:15 AM EST Office Visit [facility] [address] [place] [phone] Aaliyah Roche MD [address] [place] [address] documented as of this encounter Visit Diagnoses Diagnosis Essential hypertension Unspecified essential hypertension documented in this encounter Additional Health Concerns Assessment Noted Time PHQ-9 Depression Total Score: 12 024 11:05 AM EDT documented as of this encounter Care Teams Stopboard Assembler Relationship Specialty Start Date End Date Aaliyah Roche MD [address] [place] [address] PCP - General Family Medicine 07/03/19 Deb Duncan RN [address] [place] [phone] Registered Nurse Family Medicine 03/31/25 07/14/25 Sylvia Brumfield 03/31/25 07/09/25 Aicha CARSON 05/23/25 documented as of this encounter
--- OUTSIDE RECORDS SUMMARY | 2025-07-22 10:22 | XMS_ITS | Data Portability ---
Author Organization [place] - [facility], BORIS Duncan PT Address [address] [place] [address] Care Team Providers Care Line Walker Name Role Phone ROLANDOKristy HOMER MONTOYA Primary Care Provider [phone] Assessment Encounter Date Assessment Date Assessment LastModified [...] or to follow up sooner if needed. [email or web address] Not available 06/16/2025 07:39:41 06/24/2025 06/24/2025 Chief [...] and are available for review. X-rays demonstrate sokd-ef-xvkxyazs degenerative changes in the right hip with some joint space narrowing. There is no evidence of fracture. Assessment and Plan: The patient is presenting with a chief complaint of right hip pain. He demonstrates kase-wc-qexbgyfm osteoarthritis of the right hip on his [...] hours following his local anesthetic intraarticular injection. [email or web address] Not available 06/24/2025 14:02:55 Plan of Treatment Reminders Order Date Submit Date Provider Last Modified By Organization Details Last Modified Time Details Appointments None recorded. Lab None recorded. Referral None recorded. Procedures None recorded. Surgeries None recorded. Imaging XR, shoulder, 2 or more view - room 316 left shoulder/ lateral cervical 2024 025 [facility], [address], [place], [address], 5 15:52:58 XR, cervical spine, 1 view 2024 [facility]25 [facility] [address], [place], [address], 5 15:52:58 MRI, shoulder, w/o contrast - rct 2024 025 [facility] ([facility]), [address], [place], [address], 5 15:52:58 Medication Orders meloxicam 15 mg tablet [id number], [address] [place], [address], 13:03:58 Patient TargetsNo targets recorded. Patient InstructionsNo instructions recorded. Reason for Referral None Reported. Results Created Date Observation Date Name Description Value Unit Range Abnormal Flag Note LastModifiedBy Organization Detail LastModifiedTime 04/03/2004/03/2025 XR, cervi kell spine , 1 view http:/ [email or web address] ?Encry pted=s hAaTro YD8dLq bEUv6g %2BXZw aYqtaq 0bqfl% 2Fg9IQ a4ajBk vP9nXo QUaueC m3YtLR FvZlgJ JJ8mAn HZtai3 0t3006 AC0Klb nqDVqK hKiQtr MwF INTERFACE [facility] [address], [place], [address], 04/03/2025 12:50:00 04/03/20 25 04/03/2025 XR, cervi kell spine , 1 view http:/ [email or web address] ?Encry pted=s hAaTro YD8dLq bEUv6g %2BXZw aYqtaq 0bqfl% 2Fg9IQ a4ajBk vP9nXo QUaueC m3YtLR FvZlgJ JJ8[place] HZtai3 8m3028 AC0Klb nqDVqK hKiQtr MwF INTERFACE [facility] [address], [place], [address], 04/03/2025 12:50:02 04/03/20 25 04/03/2025 XR, shoul pako, 2 or more view http:/ [email or web address] ?Encry pted=s hAaTro YD8dLq bEUv6g %2BXZw aYqtaq 0bqfl% 2Fg9IQ a4ajBk vP9nXo QUaueC m3YtLR FvZlgJ JJ8[place] HZtai3 5e1649 AC0Klb nqDVqK gKiQtr MwF INTERFACE [facility] [address], [place], [address], 04/03/2025 12:53:43 04/03/20 25 04/03/2025 XR, shoul pako, 2 or more view http:/ [email or web address] ?Encry pted=s hAaTro YD8dLq bEUv6g %2BXZw aYqtaq 0bqfl% 2Fg9IQ a4ajBk vP9nXo QUaueC m3YtLR FvZl JJ8[place] HZtai3 1g0058 AC0Klb nqDVqK gKiQtr MwF INTERFACE [facility] [address] [facility] [address], [place], [address], 04/03/2025 12:53:45 04/15/20 25 04/14/2025 XR, lumba r spine , 2 view No observ ation record ed. [email or web address] [facility] [address] [facility], [place], [address], 04/16/2025 13:58:33 04/15/20 25 04/15/2025 XR, cervi kell spine , 1 view No observ ation record ed. ALIZE [facility] [address] [place], [address], 04/15/2025 12:23:35 04/15/20 25 04/14/2025 XR, thora cic spine , 3 view No observ ation record ed. [email or web address] [facility] [address] [place], [address], 04/16/2025 13:57:57 04/29/20 25 04/25/2025 MRI, shoul pako, w/o contr ast [facility] Access ion Number : [id number] Name: Silvestre Villalobos Record Number : [id number] Date of : 1964 Date of Exam: 2024 Referr ing Physic shellie: [facility] [address], [address] [place] [address] Exam: MR Should er (C-) CPT 18773 - Left Room Descri ption: [facility] 3.0T Clinic al Histor y: Other [...] There is subcho ndral cyst in the independent living specialist ior aspect of the greate r tubero [...] ly Signed By: Yamile Dickson ra, MD [facility] ([facility]) [address] [facility], [place], [address], 04/29/2025 14:33:54 Result Notes Documentation Provider Name and Address Organization Details Recorded Time Xr, Cervical Spine, 1 View : [email or web address] crypted=xfMaCuwEN5wMwkLLy0m %0XPFmbJlvvf0xwse%2Ya4UQa5k jXyqR0eKhXWubbOv9MlFLHgPtcX RU2jWjXPtzt82c9399UN5WodvcW VqKhKiQtrMwF Not Available [facility] 04/03/2025 12:50:01 Xr, Cervical Spine, 1 View : [email or web address] crypted=exKkBsyJE7tWnxBMa4z %1OTDjkAbbzr5nojf%4Ck7HGm9q kLvrV2hRyJJurlLx6FwCATfOmoJ QC0fCjOLvhm67p0697SJ9JniwdQ VqKhKiQtrMwF Not Available [facility] 04/03/2025 12:50:03 Xr, Shoulder, 2 Or More View : [email or web address] crypted=zxFqHonZW8vCcwTRh6n %3HKVlrZjsft0xuew%5Qn2FJz2o jKumO2bEyVJgseCg5CwVDMmGnxJ DH5dNvXNqxc54t8661SH6KkkqoU VqKgKiQtrMwF Not Available [facility] 04/03/2025 12:53:44 Xr, Shoulder, 2 Or More View : [email or web address] crypted=duDiYcrKB7nSaoQLx6n %9STRswVglwk7srzs%1Vu3LJq0s vEbnN2zRqGXkxvEu6VlOIIkQdiL IZ0yCbGYhkb33s5376SL4WnlpbD VqKgKiQtrMwF Not Available [facility] 04/03/2025 12:53:45 Mri, Shoulder, W/o Contrast : [facility] Accession Number: [id number] Patient Name: Silvestre Villalobos Date of : 1965 Date of Exam: 04-25-2025 Referring Physician: Heron Cruz [facility] ([facility]) [address] [facility], [address] [place] [address] Exam: MR Shoulder (C-) CPT 68144 - Left Room Description: [facility] 3.0T Clinical History: Other specific joint [...] glenohumeral degenerative change. Electronically Signed By: [facility] 04/29/2025 14:33:54 Problems Name Problem SNOMED Code Status Onset Date Resolution Date Notes Provider Name and Address Organization Details Recorded Time Pain of left shoulder region Active 2024 Heron Cruz PA-C [address], [place], [address], [facility] 12:44:49 Traumatic left rotator cuff tear Active 2024 Heron Cruz PA-C [address], [place], [address], [facility] 5 06:03:52 Derangement of left shoulder joint 9574156354670 9106 Active 2024 Heron Cruz PA-C [address], [place], [address], [facility] 5 13:04:02 Metal foreign body in back 461972694 Active 2024 [facility] 09:30:25 Problem Notes None recorded. Procedures Surgical History Date Name Laterality Status Provider Name and Address Organization Details Recorded Time [address] [facility] Zacarias Bermudez PA-C [address], [place], [address], [facility] 06/16/2025 07:39:04 5 Sports Shoulder 4&1 completed Heron Cruz PA-C [address], [place], [address], [facility] 04/30/2025 11:10:06 Knee Kenalog 1cc L/R completed Heron Goss MD [address], [place], [address], [facility] 10/20/2024 13:30:30 Imaging Results None recorded. Procedure Notes None recorded. Medical Equipment None Reported. Allergies Allergen ID Allergen Name Allergen Category Reaction Reaction Severity Criticality Documentation Date Start Date Code Code System Note Provider Name and Address Organization Details Recorded Time 588271 baclofen medicatio n Not available Not available Not available 10/16/2024 1292 RxNorm TAYLOR AZOAICHA [facility] 13:57:16 Medications Name Sig Start Date [...] Updated DateTime 04/02/2025 175.26 cm 36.9 kg/m2 164408.09 g Karyn Lovett [place] - [facility] 04/02/2025 17:00:34 Date Recorded Body height Body mass index (BMI) Body weight Provider Name and Address Organization Details Last Updated DateTime 04/03/2025 175.26 cm 36.9 kg/m2 451448.09 g Heron Cruz PA-C [address] [facility] [address], [place], [address], [place] - [facility] 04/03/2025 12:43:17 Date Recorded Body height Body mass index (BMI) Body weight Provider Name and Address Organization Details Last Updated DateTime 04/30/2025 175.26 cm 36.9 kg/m2 179211.09 g Heron Cruz PA-C [address], [place], [address], [facility] 04/30/2025 10:51:14 Date Recorded Body height Body mass index (BMI) Body weight Provider Name and Address Organization Details Last Updated DateTime 06/16/2025 175.26 cm 36.9 kg/m2 700801.09 g Teresa Nunezoche [facility] 06/16/2025 13:02:21 Date Recorded Body height Provider Name an d Address Organization Details Last Updated DateTime 06/24/2025 175.26 cm TAY[facility]OR TH[facility]risty [facility] 06/24/2025 13:41:40 Social History Question Answer Notes LastModified by Organizat ion Details LastModified Time Tobacco Smoking Status Former Smoker Heron Cruz PA-C [address], [place], [address], [facility] 04/03/2025 12:43:40 When Did You Quit Smoking? 16+yearssin [email or web address] Information not available 04/03/2025 What Is Your Relationship Status? Single [email or web address] Information not available 04/03/2025 Sex: Unknown Functional Status Question Answer Note LastModified by Organizat ion Details LastModified Time Do you use any illicit or recreational drugs? No Information not available 04/03/2025 What is your level of alcohol consumption? None [email or web address] Information not available 04/03/2025 Mental Status None recorded. Family History Nothing Reported. Medical History Condition Response Coronary Artery Disease N Anxiety/Depression N Emphysema N COPD Y Pacemaker N Vascular Disease N Heart Trouble Y Gastrointestinal Disease N Autoimmune disease N Inflammatory Joint disease N Orthotics N Arthritis Y Blood Clot N Acid Reflux (GERD) Y Cancer N Stroke N Circulation Problems N Rheumatoid Arthritis N Arrhythmia N Headaches N Fibromyalgia N Allergies/Hayfever N Breathing or lung disorders N Nerve Disorders N Thyroid Problems N Kidney/Bladder Problems N Anemia N Heart Attack (GA) N Cholesterol Y Diabetes N Bleeding Disorder N Seizures/Epilepsy N AIDS/HIV N Congestive Heart Failure (CHF) N Asthma N Peripheral Vascular Disease N Sleep Apnea N Hepatitis N Heart Disease N Pulmonary Embolism N Hypertension Y Osteoporosis N Past Encounters Encounter ID Performer Location Encounter Start Date Encounter Closed Date Diagnosis/Indication Diagnosis SNOMED-CT Code Diagnosis ICD10 Code Diagnosis IMO Codes Diagnosis Note [id number] MD BORIS Shafer [address] [place] [address] 10/16/2024 13:43:57 10/29/2024 09:17:09 Pain of hip region 35281212 M25.551 134614 Pain of ri ght knee region 4580930537 17914 M25.561 [id number] Trochanter ic bursitis of right hip 3998806372 90538 M70.61 3790553 Osteoarthr itis of right knee joint 2886913630 47070 M17.11 [id number] MD BORIS Shafer [address] [place] [address] 04/02/2025 16:56:21 04/08/2025 14:53:33 Trochanteric bursitis of right hip 8310247424 83822 M70.61 6414301 [id number] JESÚS Calderon 3[address] [place] [address] 04/03/2025 12:38:25 04/10/2025 15:52:58 Pain of left shoulder region 6619433576 M25.512 63849149 Traumatic left rotator cuff tear 6932278556 8396513 S46.012A 493320981 Derangemen t of left shoulder joint 4400292606 2358685 M24.580 [id number] JESÚS Calderon [address] [place] [address] 04/30/2025 10:13:32 05/09/2025 09:55:52 Traumatic left rotator cuff tear 6116746175 2669488 S46.012D [id number] JESÚS Wilson [address] [place] [address] 06/16/2025 12:37:52 06/24/2025 09:18:32 Osteoarthritis of right hip joint 8442096073 53016 M16.11 [id number] MD BORIS Shafer [address] [place] [address] 06/24/2025 13:30:05 07/04/2025 14:21:49 Osteoarthritis of right hip joint 6322563476 01405 M16.11 4370068 Health Concerns Section Related Observation LastModified by Organization Detai ls LastModified Time None Recorded Concern Status LastModified by Organization Details LastModified Time None Recorded Advance Directives Directive None Recorded Payers Insurance Date Sequence Insurance Name Policy Number Policy Orozco Covered Member ID Orozco Member ID Guarantor Name 07/04/2025 1 [place] [facility] PLAN MichaelKristy Vazquez [id number] Silvestre Villalobos Notes Date Note Type Note [...] ordered, obtained and independently reviewed today at [facility]. Four views of the Left shoulder [...] detail and appropriate precautions will be taken. [employer] speech recognition spinning doffer software was used to create portions of this document. An attempt at proofreading has been made to minimize errors. Please call for corrections. Heron Cruz PA-C [address] [place] [address] [address] [facility], [place], [address], [facility] - [facility] 04/03/2025 13:16:35 04/30/2025 text/html I am [...] ordered, obtained and independently reviewed today at [facility]. Four views of the Left shoulder [...] because of the integrity of the subscapularis. [facility] speech recognition spinning doffer software was used to create portions of this document. An attempt at proofreading has been made to minimize errors. Please call for corrections. Heron Cruz PA-C [address], [place], [address], [facility] - [facility] 04/30/2025 11:12:24
--- OUTSIDE RECORDS SUMMARY | 2025-07-22 10:23 | XMS_ITS | Encounter Summary ---
Author Organization [employer] Address [address] [place] [address] Care Team Providers Care Aircraft Engine Technician Name Role Phone Aaliyah Roche MD Primary Care Provide r Deb Duncan RN Unavailable [phone] Sylvia Brumfield Unavailable Reason for Visit * Reason Comments Med Refill Encounter Details Date Type Department Care Team (Late st Contact Info) Description 10/21/2024 Refill [facility] [address] [place], [place] [phone] Aaliyah Roche MD [address] [place], [place] [phone] Dyslipidemia Social History Tobacco Use Types Packs/Day [...] 9:15 AM EST Office Visit [facility] [address] [place] [address] Aaliyah Roche MD [address] [place] [address] documented as of this encounter Visit Diagnoses Diagnosis Dyslipidemia Other and unspecified hyperlipidemia documented in this encounter Additional Health Concerns Assessment Noted Time PHQ-9 Depression Total Score: 12 024 11:05 AM EDT documented as of this encounter Care Teams Aircraft Engine Technician Relationship Specialty Start Date End Date Aaliyah Roche MD [address] [place] [address] PCP - General Family Medicine 07/03/19 Deb Duncan RN [address] [place] [address] Registered Nurse Family Medicine 03/31/25 07/14/25 Sylvia Brumfield 03/31/25 07/09/25 Aicha GALEANAA 05/23/25 documented as of this encounter
--- OUTSIDE RECORDS SUMMARY | 2025-07-22 10:23 | XMS_ITS | Clinical Summary ---
Author Organization [facility] Address [address] [place] [address] Phone Care Team Providers Care Staff Anesthesiologist Name Role Phone Aaliyah Ann MD Primary Care Provider Tyree Weber MD Unavailable [phone] Allergies Active Allergy Reactions Criticality Noted Date [...] topic Medical Devices Not on file Insurance [facility] [place] [place] [address] [address] [place] [address] [place] [address] [place] [address] C3 ACO Care Teams Staff Anesthesiologist Relationship Specialty Start Date End Date Aaliyah Ann MD [address] [place] [address] PCP - General Internal Medicine 04/29/20 Tyree Weber MD [address] [place] [address] [employer] [facility] 05/28/20 Additional Source Comments The information contained in this document represents components of the legal health record. It is not the complete legal health record.[facility]
--- OUTSIDE RECORDS SUMMARY | 2025-07-22 10:23 | XMS_ITS | Encounter Summary ---
Author Organization [employer] Address [address] [place] [address] Care Team Providers Care Directory Operator Name Role Phone Aaliyah Roche MD Primary Care Provide r Deb Duncan RN Unavailable [phone] Sylvia Brumfiedl Unavailable Reason for Visit * Reason Comments Med Refill Encounter Details Date Type Department Care Team (Late st Contact Info) Description 12/21/2024 Refill [facility] [address] [place], [place] [phone] Aaliyah Roche MD [address] [place], [place] [phone] Essential hypertension Social History Tobacco Use Types [...] Description 08/11/2025 9:15 AM EST Office Visit [facility] [address] [place] [address] Aaliyah Roche MD [address] [place] [address] documented as of this encounter Visit Diagnoses Diagnosis Essential hypertension Unspecified essential hypertension documented in this encounter Additional Health Concerns Assessment Noted Time PHQ-9 Depression Total Score: 12 024 11:05 AM EDT documented as of this encounter Care Teams Directory Operator Relationship Specialty Start Date End Date Aaliyah Rcohe MD [address] [place] [address] PCP - General Family Medicine 07/03/19 Deb Duncan RN [address] [place] [address] Registered Nurse Family Medicine 03/31/25 07/14/25 Sylvia Brumfield 03/31/25 07/09/25 Aicha CARSON 05/23/25 documented as of this encounter
--- OUTSIDE RECORDS SUMMARY | 2025-07-22 10:23 | XMS_ITS | Continuity of Care Document ---
Author Organization [place] [facility] Address [address] [place] [address] Care Team Providers Care Plastic Duplicator Name Role Phone HOMER SOUZA Primary Care Provider [phone] Assessment Encounter Date Assessment Date Assessment LastModified by Organization Details LastModified Time 06/24/2025 06/24/2025 Chief complaint: Right hip pain. [...] and are available for review. X-rays demonstrate qmof-fs-cinnqhrv degenerative changes in the right hip with some joint space narrowing. There is no evidence of fracture. Assessment and Plan: The patient is presenting with a chief complaint of right hip pain. He demonstrates fxtj-oc-gxuzqouf osteoarthritis of the right hip on his [...] hours following his local anesthetic intraarticular injection. [email or web address] Not available 06/24/2025 14:02:55 Plan of Treatment [...] PA-C [address], [place], [address], [facility] 5 12:44:49 Traumatic left rotator cuff tear Active 2024 Heron Cruz PA-C [address], [facility] [place], [address], [facility], [facility] 5 06:03:52 Derangement of left shoulder joint [id number] 9106 Active 2024 Heron Cruz PA-C [address], [place], [address], [facility], [facility] 5 13:04:02 Metal foreign body in back [id number] Active 2024 SAI LACKEY [facility] 5 09:30:25 Problem Notes None recorded. Procedures Surgical History Date Name Laterality Status Provider Name and Address Organization Details Recorded Time 5 Anali completed Zacarias Bermudez PA-C [address], [place], [address], [facility], [facility] 06/16/2025 07:39:04 5 Sports Shoulder 4&1 completed Heron Cruz PA-C [address], [place], [address], [facility], [facility] 04/30/2025 11:10:06 Knee Kenalog 1cc L/R completed Heron Goss MD [address] [facility] [address], [place], [address], [facility], [facility] 10/20/2024 13:30:30 Imaging Results None recorded. Procedure Notes None recorded. Medical Equipment None Reported. Allergies Allergen ID Allergen Name Allergen Category Reaction Reaction Severity Criticality Documentation Date Start Date Code Code System Note Provider Name and Address Organization Details Recorded Time 105123 baclofen medicatio n Not available Not available Not available 10/16/2024 1292 RxNorm TAYLOR CHOWDARYAICHA [facility] 13:57:16 Medications Name Sig Start Date [...] Not Available Vitals Date Recorded Body height Provider Name an d Address Organization Details Last Updated DateTime 06/24/2025 175.26 cm TAYLOR TRIPLETT [facility] 06/24/2025 13:41:40 Social History Question Answer Notes LastModified by Organizat ion Details LastModified Time Tobacco Smoking Status Former Smoker Heron Cruz [facility]-C [address] [facility] [address], [place], [address], [facility] 04/03/2025 12:43:40 When Did You Quit Smoking? 16+yearssin celastcikareem [email or web address] Information not available 04/03/2025 What Is Your Relationship Status? Single [place] [address] Information not available 04/03/2025 Sex: Unknown Functional Status Question Answer Note LastModified by Organizat ion Details LastModified Time Do you use any illicit or recreational drugs? No [place] [address] Information not available 04/03/2025 What is your level of alcohol consumption? None [place] [address] Information not available 04/03/2025 Mental Status None recorded. Family History Nothing Reported. Medical History Condition Response Allergies/Hayfever N Coronary Artery Disease N Breathing or lung disorders N Anxiety/Depression N Emphysema N Nerve Disorders N Thyroid Problems N COPD Y Pacemaker N Kidney/Bladder Problems N Anemia N Vascular Disease N Heart Trouble Y Heart Attack ([place]) N Gastrointestinal Disease N Cholesterol Y Diabetes [...] ICD10 Code Diagnosis IMO Codes Diagnosis Note [id number] JESÚS Wilson 2nd floor [address] [place] [address] 06/16/2025 12:37:52 06/24/2025 09:18:32 Osteoarthritis of right hip joint [id number] 90368 M16.11 [id number] MD BORIS Shafer 2nd floor [address] [place] [address] 06/24/2025 13:30:05 07/04/2025 14:21:49 Osteoarthritis of right hip joint [id number] 09988 M16.11 [id number] Health Concerns Section Related Observation LastModified by Organization Detai ls LastModified Time None Recorded Concern Status LastModified by Organization Details LastModified Time None Recorded Payers Encounter Date Sequence Insurance Name Policy Number Policy Orozco Covered Member ID Orozco Member ID Guarantor Name 06/24/2025 1 [place] [facility] Silvestre Vazquez [id number] Silvestre Villalobos
--- OUTSIDE RECORDS SUMMARY | 2025-07-22 10:23 | XMS_ITS | Encounter Summary ---
Author Organization [employer] Address [address] [place] [address] Care Team Providers Care Osteopathic Resident Name Role Phone Aaliyah Roche MD Primary Care Provide r Deb Duncan RN Unavailable [phone] Sylvia Brumfield Unavailable Reason for Visit * Reason Comments Med Change Request Encounter Details Date Type Department Care Team ([facility] st Contact Info) Description 03/05/2025 Refill [facility] [address] [place], [place] [phone] Aaliyah Roche MD [address] [place], [place] [phone] Neuropathy Social History Tobacco Use Types Packs/Day [...] Description 08/11/2025 9:15 AM EST Office Visit [facility] [address] [place] [address] Aaliyah oRche MD [address] [place] [address] documented as of this encounter Visit Diagnoses Diagnosis Neuropathy Mononeuritis of unspecified site documented in this encounter Additional Health Concerns Assessment Noted Time PHQ-9 Depression Total Score: 0 03/05/20 8:59 AM EDT documented as of this encounter Care Teams Osteopathic Resident Relationship Specialty Start Date End Date Aaliyah Roche MD [address] [place] [address] PCP - General Family Medicine 07/03/19 Deb Duncan, RN [address] [place] [address] Registered Nurse Family Medicine 03/31/25 07/14/25 Sylvia Brumfield 03/31/25 07/09/25 Aicha CARSON 05/23/25 documented as of this encounter
--- OUTSIDE RECORDS SUMMARY | 2025-07-22 10:23 | XMS_ITS | Encounter Summary ---
Author Organization [employer] Address [address] [place] [address] Care Team Providers Care Foam Molder Name Role Phone Aaliyah Roche MD Primary Care Provide r Deb Duncan RN Unavailable [phone] Sylvia Brumfield Unavailable Encounter Details Date Type Department Care Team ([facility] Contact Info) Description 01/06/2023 Orders Only [facility] [address] [place], [place] [phone] Alyssa Mackey LPN Social History Tobacco Use [...] Upcoming Encounters Date Type Department Care Team ([facility] Contact Info) Description 08/11/2025 9:15 AM EST Office Visit [facility] [address] [place], [place] [phone] Aaliyah Roche MD [address] [place], [place] [phone] documented as of this encounter Visit Diagnoses Not on filedocumented in this encounter Care Teams Foam Molder Relationship Specialty Start Date End Date Aaliyah Roche MD [address] [place] [address] PCP - General Family Medicine 07/03/19 Deb Duncan RN [address] [place] [address] Registered Nurse Family Medicine 03/31/25 07/14/25 Sylvia Brumfield 03/31/25 07/09/25 Aicha CARSON 05/23/25 documented as of this encounter
--- OUTSIDE RECORDS SUMMARY | 2025-07-22 10:23 | XMS_ITS | Encounter Summary ---
Author Organization [employer] Address [address] [facility] [address] [place] [address] Care Team Providers Care Claim Attorney Name Role Phone Aaliyah Roche MD Primary Care Provide r Deb Duncan RN Unavailable [phone] Sylvia Brum[address] Unavailable Reason for Visit * Reason Comments Med Refill Encounter Details Date Type Department Care Team (Late Contact Info) Description 03/12/2023 Refill [facility] [address] [place], [place] [phone] Dominga Enrique MD [address] [place] [phone] Dyslipidemia Social History Tobacco Use Types Packs/Day [...] Description 08/11/2025 9:15 AM EST Office Visit [facility] [address] [place] [phone] Aaliyah Roche MD [address] [place] [address] [phone] documented as of this encounter Visit Diagnoses Diagnosis Dyslipidemia Other and unspecified hyperlipidemia documented in this encounter Care Teams Claim Attorney Relationship Specialty Start Date End Date Aaliyah Roche MD [address] [place] [address] PCP - General Family Medicine 07/03/19 Deb Duncan RN [address] [place] [address] Registered Nurse Family Medicine 03/31/25 07/14/25 Sylvia Brumfield 03/31/25 07/09/25 Aicha CARSON 05/23/25 documented as of this encounter
--- OUTSIDE RECORDS SUMMARY | 2025-07-22 10:23 | XMS_ITS | Clinical Summary ---
Author Organization [facility] Address [address] [place] [address] Care Team Providers Care At Home Independent Call Center Agent Name Role Phone Sabra Lim Primary Care [...] patient's age to complete this topic Insurance [employer] Care Teams At Home Independent Call Center Agent Relationship Specialty Start Date End Date Sabra Lim [address] [place] [address] JOSE G Barrera [address] PCP - General 09/04/20
== END 2025-07-22 10:03 | disposition home or self-care (01) ==
PROVIDERS: PCP Internal Medicine; Visit Provider Nurse Practitioner Family
DX: R07.89 Other chest pain (principal); E78.00 Pure hypercholesterolemia, unspecified; M79.10 Myalgia, unspecified site; I25.10 Atherosclerotic heart disease of native coronary artery without angina pectoris; I71.20 Thoracic aortic aneurysm, without rupture, unspecified; I71.01 Dissection of thoracic aorta; Z51.89 Encounter for other specified aftercare
CPT/HCPCS: 99214

== ENCOUNTER → 2025-07-22 09:16 | Outpatient (BNVA) | payer MEDICAID, SELFPAY | PROVIDERS: PCP Internal Medicine; Visit Provider Nurse Practitioner Family | DX: I25.10 Atherosclerotic heart disease of native coronary artery without angina pectoris (principal); I71.20 Thoracic aortic aneurysm, without rupture, unspecified; I71.010 Dissection of ascending aorta; R07.89 Other chest pain; E78.00 Pure hypercholesterolemia, unspecified; M79.10 Myalgia, unspecified site; Z51.89 Encounter for other specified aftercare; Z79.82 Long term (current) use of aspirin; F17.200 Nicotine dependence, unspecified, uncomplicated; Z79.899 Other long term (current) drug therapy | CPT/HCPCS: 99212 ==

== ENCOUNTER → 2025-08-06 09:35 | Outpatient (REF) | payer MEDICAID, SELFPAY ==
--- NOTE | 2025-08-06 12:51 | CA_ITS ---
Acquisition Time: 2025-08-06 10:04:38 Total Exercise Time: 00:08:15 Test Indications: CP Medications: SEE H&P Protocol: MIRTA Max HR: 144 BPM 90% of Pred: 160 BPM Max BP: 204/60 mmHG Max Work Load: 10.1 METS Exercise stress test with exercise 8 mins 15 secs of Mirta Protocol, achieving 88% MPHR, with reports of SOB, 2/10 baseline chest discomfort that is reproducible and remained unchanged with exercise, with isolated PVCs, with hypertenisve response to exercise- mac BP 204/60. Without any EKG changes meeting criteria for ichemia. In recovery, breathing improved and pt feeling back to baseline. BP improved to baseline. Nuclear images pending. Test reviewed with Dr. Weber. Referred By: Isabella Dow Electronically Signed By: Paresh Del Rosario
== END ==
LOC: HO.CARD 09:35
PROVIDERS: PCP Internal Medicine; Visit Provider Nurse Practitioner Family
DX: I25.10 Atherosclerotic heart disease of native coronary artery without angina pectoris (principal); I71.20 Thoracic aortic aneurysm, without rupture, unspecified; I71.010 Dissection of ascending aorta; R07.89 Other chest pain
CPT/HCPCS: 78452; 93017; A9500

== ENCOUNTER → 2025-08-06 12:51 | Outpatient (BNV) | payer MEDICAID, SELFPAY | PROVIDERS: PCP Internal Medicine | DX: I49.3 Ventricular premature depolarization (principal) | CPT/HCPCS: 78452; 93016; 93018 ==